=== PATIENT | male | born 1970 | race Caucasian/White ===

== ENCOUNTER 2019-12-25 15:12 | Emergency (ER) | payer BC, SELFPAY ==
[2019-12-25 15:26] VITALS: BP 139/86; PULSE 76; RESP 16; TEMP 36.1; O2SAT 100
--- NOTE | 2019-12-25 15:30 | DI.CT_ITS ---
EXAM: CT ABDOMEN PELVIS W CLINICAL HISTORY: Bilateral upper abd pain, h/o pancreatitis, N/V TECHNIQUE: FINDINGS: CT examination of the abdomen and pelvis was with bolus infusion of 99 cc of Omnipaque 350. Images obtained through bases are unremarkable. There appears to be mild hepatic steatosis without focal hepatic lesion. No biliary dilatation. Gal lbladder is CT. Spleen is unremarkable. There is Marla pancreatic edema, patient has a history of pancreatitis. On t ovidio's examination the findings are consistent acute pancreatitis without pancreatic necrosis or marla pancreatic fluid collection. Adrenals and kidneys are unremarkable, no urinary tract calcification or obstruction. Abdominal aorta is of normal diameter and major visceral vessels appear normal. No abdominal or pelvic adenopathy. No significant abdominal wall hernia, bilateral small fat contain ing inguinal hernias are noted. Appendix is normal. No evidence of diverticulitis or bowel obstruction. Urinary bladder is unremark able. IMPRESSION: Peripancreatic edema, appearance consistent with acute pancreatitis. No peripancreatic fluid collect ion or evidence of pancreatic parenchymal necrosis.
--- NOTE | 2019-12-25 15:33 | ED.GENADUL_ITS ---
Discharge Plan Disposition Patient Disposition: HOME Condition: Improving Discharge Details Chief Complaint: Abd Prob Clinical Impression: Pancreatitis Primary Care Provider: Usman Loyola ED Provider: Mark Jimenez Home Meds and New Rx's Prescriptions: New tramadol 50 mg tablet 50 mg PO Q8H PRN (Reason: pain) Qty: 7 RF: 0 Continued omeprazole 40 MG capsule,delayed release(DR/EC) 40 mg PO DAILY Qty: 30 RF: 1 loperamide 2 MG capsule 4 mg PO DAILY PRNRF: 0 Discontinued hydrocodone-acetaminophen 1 TAB tablet 1 tab PO Q4H PRN PRNQty: 5 RF: 0 Discharge Instructions Instructions: Pancreatitis (ED) Additional Instructions: Please observe a liquid diet with small, frequent sips of fluids so that you maintain hydration. May slowly advance a bland diet tomorrow morning if tolerated. Return if you develop a fever, recurrent pain, vomiting, or any other acute concerns. May use Tylenol as needed for pain with tramadol if needed for breakthrough/severe pain. Discharge Data Discharge Date/Time-TO BE ENTERED AT DEPARTURE: 12/25/19 19:00 Medical Decision Making <Gabi Hearn - Last Filed: 12/26/19 08:49> 41-year-old male presents to the ED with a chief complaint of bilateral upper abdominal pain which he is moderate to severe. Associated with nausea vomiting. He does have a history of pancreatitis which he states last episode was 1 month ago. He does endorse recent alcohol (Beer) intake last night and the day before. Admits to marijuana use no other drugs. He also endorses diarrhea but does have a history of IBS states that this is at his baseline. He denies hematemesis or hematochezia. No history of abdominal surgical history. Famotidine 20 mg IV piggyback, Zofran 4 mg IV push, normal saline 1 L wide open, and 50 mcg fentanyl IV ordered. Abdominal work-up ordered including CBC, CMP, lipase urinalysis CT abdomen pelvis with IV contrast. Care is to be handed off to Mark Jimenez MD pending work-up and CT result for possible pancreatitis. This text was generated using [employer]unny[employer] system, please disregard any oddities of phrase or misspellings., the time of this dictation patient was hemodynamically stable. <Mark Jimenez MD - Last Filed: 12/25/19 18:26> Received signout from Ms. Harmon. Please see her note regarding details of the initial presentation and plan. Patient with a history of pancreatitis, now with recurrent upper abdominal pain after drinking alcohol. His laboratories show a white count of 11, slight anion gap of 14. Lipase is somewhat elevated at 500. CT does confirm evidence of acute pancreatitis with peripancreatic stranding present, no pseudocyst seen. Patient was given additional fluids and analgesia, had improvement of his discomfort. I discussed with and offered the patient admission to the hospital. He stated that he felt like he was improving and wished to trial liquid diet, analgesia at home. He was consented for the use of a small number of tramadol. He understands he needs to stop drinking alcohol. I discussed with him indications to seek reevaluation. He was discharged in stable and improved condition. Lab Data Lab results reviewed: Yes I reviewed the patient's lab results. Labs: Laboratory Results - last 24 hr 12/25/19 12/25/19 15:40 15:40 WBC 11.51 H RBC 4.99 Hgb 16.4 Hct 46.7 MCV 93.6 MCH 32.9 MCHC 35.1 RDW 13.2 Plt Count 324 MPV 9.3 Immature Gran % 0.3 Neutrophils % 71.4 Lymphocytes % 21.5 Monocytes % 6.3 Eosinophils % 0.2 Basophils % 0.3 Absolute Neutrophils 8.22 H Absolute Lymphocytes 2.47 Absolute Monocytes 0.73 H Absolute Eosinophils 0.02 Absolute Basophils 0.03 Sodium 133 L Potassium 3.9 Chloride 98 Carbon Dioxide 20.8 L Anion Gap 14.2 H BUN 20 H Creatinine 1.20 Estimated GFR/1.73 m2 >= 60.00 Glucose 160 H Calcium 8.6 Magnesium 1.9 Total Bilirubin 0.7 Alkaline Phosphatase 98 Troponin I < 0.05 Total Protein 7.6 Albumin 3.5 Lipase 500 H ECG Data Attestation: I personally reviewed and interpreted this ECG (s) as follows: Interpretation: Normal sinus rhythm, rate of 87, QRS is narrow, no ST segment elevation present. HPI <Gabi Hearn - Last Filed: 12/26/19 08:49> General Mode of arrival: ambulatory . Date/Time Provider Initiated Documentation: 12/25/19 15:16 . Limitations to Documentation: no limitations . Information obtained by: patient . HPI Narrative: 41-year-old male presents to the ED with a chief complaint of bilateral upper abdominal pain which he is moderate to severe. Associated with nausea vomiting. He does have a history of pancreatitis which he states last episode was 1 month ago. He does endorse recent alcohol (Beer) intake last night and the day before. Admits to marijuana use no other drugs. He also endorses diarrhea but does have a history of IBS states that this is at his baseline. He denies hematemesis or hematochezia. No history of abdominal surgical history. Related Data Home Medications Medication Instructions Recorded Confirmed omeprazole 40 mg PO DAILY #30 tab-cap 01/22/18 12/25/19 loperamide 4 mg PO DAILY PRN 03/06/18 12/25/19 tramadol 50 mg PO Q8H PRN #7 tab 12/25/19 Previous Rx's Medication Instructions Recorded omeprazole 40 mg PO DAILY #30 tab-cap 01/22/18 tramadol 50 mg PO Q8H PRN #7 tab 12/25/19 Allergies Allergy/AdvReac Type Severity Reaction Status Date / Time erythromycin base Allergy Unverified 12/25/19 23:59 General Stated Complaint: Abd Prob KATELYNN: 3 Review of Systems <Gabi Hearn - Last Filed: 12/26/19 08:49> Narrative: Constitutional: Negative for weight loss, alert and oriented, well gr oomed, normal body habitus, appears uncomfortable. HEENT: Denies trauma, headaches, blurry vision, nasal discharge, sore throat, trouble swallowing. Chest: Denies chest pain, palpitations, irregular rhythm, hypertension. Respiratory: Denies Shortness of breath, cough, hemoptysis. GI: Denies constipation. Positive abdominal pain nausea vomiting diarrhea history of IBS. : Denies dysuria, hematuria, flank pain, rectal bleeding. Neuro: Denies dizziness, blurry vision, weakness, syncope, headache or facial numbness. Hematologic: Denies easy bruising, intolerance to heat or cold, hair loss. All systems reviewed & are unremarkable except as noted in HPI and below PFSH <Gabi Hearn - Last Filed: 12/26/19 08:49> Surgical History Arthroplasty of knee Social History Smoking/Tobacco Use Status: Current every day Tobacco Type: cigarettes Drug use: Occasionally Substance use type: marijuana Do you feel safe at home: Yes Do you feel safe in your relationship?: Yes Exam <Gabi [facility] Filed: 12/26/19 08:49> Narrative Exam Narrative: Constitutional: Alert and oriented x3. Appears stated age. Normal body habitus. Appears uncomfortable Head: Normocephalic, no trauma. Eyes: Pupils PERRLA, Red reflex noted, EOM's intact. Eyelids symmetrical without lesions, discharge, or swelling. ENT: Bilateral TM's WNL, External ear normal to inspection, no mastoid TTP, swelling, or erythema, Nasal turbinates WNL, no nasal discharge. Normal dentition, Posterior pharynx WNL, no exudate. Chest: RRR, Normal S1, S2, distal pulses intact. Resp: Lungs clear to auscultation bilaterally, no wheezes, rales, or rhonchi. Abdomen: Abdominal wall normal to inspection, soft extremely tender to palpation to the right upper quadrant and left upper quadrant. Nontender to palpation lower quadrants. Hypoactive bowel sounds. Musculoskeletal: Normal gait, 5/5 strength to all four extremities. Skin: No suspicious rashes or lesions. Capillary refill less than 2 sec. Neurologic: Cranial nerves II-XII intact. Alert and oriented x 3. DTR's intact. Hematologic/Lymphatic: No ecchymosis, no lymphadenopathy. Course <Gabi Hearn - [facility] Filed: 12/26/19 08:49> Vital Signs Vital signs: Vital Signs Temperature 36.1 C L 12/25/19 15:26 Pulse 76 12/25/19 15:26 Respiratory Rate 16 12/25/19 15:26 Blood Pressure 139/86 12/25/19 15:26 Pulse Oximetry 100 12/25/19 15:26 Temperature 36.1 C L 12/25/19 15:26 Temperature Source Skin 12/25/19 15:26 Pulse 76 12/25/19 15:26 Respiratory Rate 16 12/25/19 15:26 Respiratory Effort 12/25/19 15:26 Blood Pressure 139/86 12/25/19 15:26 Blood Pressure Position Supine 12/25/19 15:26 Pulse Oximetry 100 12/25/19 15:26 Oxygen Delivery Method Room Air 12/25/19 15:26 Oxygen Flow Rate 0 12/25/19 15:26 Pain Level 10 12/25/19 15:26 Sign Out <Gabi Hearn - Last Filed: 12/26/19 08:49> Sign Out Data: Sign Out Comment: Pending abdominal work-up and CT abdomen pelvis possible pancreatitis Last updated by Gabi Hearn at 12/25/19 15:48
[2019-12-25] MEDS: Normal Saline 1,000 ML 1000 ML IV (15:40)
[2019-12-25] MEDS: HYDROmorphone 2 MG/ML VIAL 1 MG IVP ×2 (15:45→17:00)
[2019-12-25 15:49] VITALS: BP 160/95; PULSE 74; O2SAT 100
[2019-12-25 15:50] VITALS: O2SAT 100
[2019-12-25] MEDS: fentaNYL 100 MCG/2 ML VIAL 50 MCG IVP (15:55)
[2019-12-25 15:57] LABS: Abs Immature Grans 0.03 k/cumm (0.0-0.09); Absolute Eosinophil Count 0.02 k/cumm (0.0-0.7); Absolute Monocyte Count 0.73 k/cumm (0.11-0.7); Basophils % 0.3; Eosinophils % 0.2; HCT 46.7 % (40.0-50.0); HGB 16.4 g/dL (13.5-17.5); Immature Grans % 0.3 %; Lymphocytes % 21.5; Mean Corp. HGB Concentration 35.1 g/dL (32.0-36.0); Mean Corpuscular Hemoglobin 32.9 pg (27.0-33.0); Mean Corpuscular Volume 93.6 fL (80-95); Mean Platelet Volume 9.3 fL (8.0-11.0); Monocytes % 6.3; Neutrophils % 71.4; Platelet Count 324 x1000/uL (130-400); RBC 4.99 m/cumm (4.50-6.00); RBC Distribution Width 13.2 % (11.8-14.1); White Blood Cell Count 11.51 k/cumm (4.4-10.8)
[2019-12-25] MEDS: FAMOTIDINE 20 MG/50 ML BAG 100 MG IVPB (16:00)
[2019-12-25 16:01] LABS: Absolute Basophil Count 0.03 k/cumm (0.0-0.2); Absolute Lymphocyte Count 2.47 k/cumm (1.2-3.4); Absolute Neutrophil Count 8.22 k/cumm (1.2-6.7)
[2019-12-25] MEDS: Omnipaque 350 MG/ML 100 ML BTL IV (16:04)
[2019-12-25 16:09] LABS: Albumin 3.5 g/dL (3.4-5.0); Alkaline Phosphatase 98 U/L (46-116); Anion Gap 14.2 mmol/L (3-11); BUN 20 mg/dL (7-18); Bilirubin, Total 0.7 mg/dL (0.2-1.0); CO2 20.8 mmol/L (21.0-32.0); Calcium 8.6 mg/dL (8.5-10.1); Chloride 98 mmol/L (98-107); Glucose 160 mg/dL (74-106); Lipase 500 U/L (73-393); Magnesium 1.9 mg/dL (1.8-2.4); Potassium 3.9 mmol/L (3.5-5.1); Sodium 133 mmol/L (136-145); Total Protein 7.6 g/dL (6.4-8.2)
[2019-12-25 16:11] LABS: Troponin I < 0.05 ng/mL (<0.06)
[2019-12-25 16:23] LABS: ETHANOL BLOOD 74.1 mg/dL (<3)
--- NOTE | 2019-12-25 16:29 | DI.VRAD_ITS ---
PROCEDURE INFORMATION: Exam: CT Abdomen And Pelvis With Contrast Exam date and time: 12/25/2019 4:02 PM Age: 49 years old Clinical indication: Other: Bilateral upper abd pain, h/o pancreatitis, n/v TECHNIQUE: Imaging protocol: Computed tomography of the abdomen and pelvis with intravenous contrast. Radiation optimization: All CT scans at this facility use at least one of these dose optimization techniques: automated exposure control; mA and/or kV adjustment per patient size (includes targeted exams where dose is matched to clinical indication); or iterative reconstruction. Contrast material: OMNIPAQUE 350; Contrast volume: 100 ml; Contrast route: IV; COMPARISON: CT Abdomen^ROUTINE ABDOMEN PELVIS WITH CONTRAST (Adult) 03/06/2018 1:43 PM FINDINGS: Liver: Normal. No mass. Gallbladder and bile ducts: Normal. No calcified stones. No ductal dilation. Pancreas: Peripancreatic stranding suggesting acute pancreatitis. No pseudocyst. Spleen: Normal. No splenomegaly. Adrenals: Normal. No mass. Kidneys and ureters: Normal. No hydronephrosis. Stomach and bowel: Mild distal colonic diverticulosis without diverticulitis. Appendix: No evidence of appendicitis. Intraperitoneal space: Unremarkable. No free air. No significant fluid collection. Vasculature: Unremarkable. No abdominal aortic aneurysm. Lymph nodes: Unremarkable. No enlarged lymph nodes. Bladder: Unremarkable as visualized. Reproductive: Unremarkable as visualized. Bones/joints: Unremarkable. No acute fracture. Soft tissues: Bilateral inguinal hernias, right greater than left, uncomplicated. IMPRESSION: Peripancreatic stranding suggesting acute pancreatitis. No pseudocyst. Dictated and Authenticated by: Max Barron MD. Ordering:ISHAN Ashley MD
[2019-12-25 16:58] LABS: ALT 46 U/L (16-63)
[2019-12-25] MEDS: Normal Saline 1,000 ML 125 ML IV (17:00)
[2019-12-25] MEDS: Ondansetron 4 MG/2 ML VIAL IVP (17:17)
[2019-12-25 17:24] LABS: AST 67 U/L (15-37)
[2019-12-25] MEDS: traMADol 50 MG TAB PO (17:55)
[2019-12-25 18:04] LABS: Bilirubin Negative (Negative); Blood Negative (Negative); Clarity Clear (Clear); Glucose Negative (Negative); Ketones Negative (Negative); Leukocyte Esterase Negative (Negative); Nitrite Negative (Negative); Urobilinogen 0.2 EU/dL (Up TO 0.2)
[2019-12-25] MEDS: HYDROmorphone 2 MG/ML VIAL 0.5 MG IVP (18:41)
[2019-12-25 18:58] VITALS: BP 153/78; PULSE 84; RESP 16; TEMP 36.3; O2SAT 97
== END 2019-12-25 19:00 | disposition home or self-care (01) ==
PROVIDERS: Registered Nurse Emergency; Emergency Provider Emergency Medicine; PCP Family Medicine
DX: K85.20 Alcohol induced acute pancreatitis without necrosis or infection (principal); R11.2 Nausea with vomiting, unspecified; F10.10 Alcohol abuse, uncomplicated; Y90.3 Blood alcohol level of 60-79 mg/100 ml
CPT/HCPCS: 36415; 80053; 83690; 93005; 96361; 96365; 96375; 96376; 99285; 74177; 80320; 81003; 83735; 84484; 85025; 93010; J2405; J3010; J3490

== ENCOUNTER 2019-12-25 23:51 | Inpatient (IN) | payer SELFPAY ==
[2019-12-25 23:56] VITALS: BP 163/103; PULSE 88; RESP 24; TEMP 36.9; O2SAT 100
--- NOTE | 2019-12-25 23:57 | ED.GENADUL_ITS ---
Discharge Plan Disposition Patient Disposition: [facility] INPATIENT Condition: Fair Discharge Details Chief Complaint: Abd Prob Clinical Impression: Pancreatitis Primary Care Provider: Usman Loyola ED Provider: Aiden Isabel Home Meds and New Rx's Prescriptions: No Action omeprazole 40 MG capsule,delayed release(DR/EC) 40 mg PO DAILY Qty: 30 RF: 1 loperamide 2 MG capsule 4 mg PO DAILY PRNRF: 0 tramadol 50 mg tablet 50 mg PO Q8H PRN (Reason: pain) Qty: 7 RF: 0 Medical Decision Making Patient returns with uncontrolled pain after being diagnosed with acute pancreatitis earlier today. CT was positive and lipase was 500. Other labs looked good. Minimal elevation of white count. Slight anion gap. Normal kidney function. Essentially normal liver function with slight elevated AST only. Negative troponin. Patient unable to tolerate pain at home. Agrees to admission at this time. IV established and maintenance fluids ordered. Morphine and Zofran ordered as needed. We will not repeat labs as was just done this afternoon. Discussed with hospitalist for admission. Medical Records Medical records reviewed: Yes I reviewed the patient's medical records. Lab Data Lab results reviewed: Yes I reviewed the patient's lab results. HPI General Mode of arrival: EMS . Date/Time Provider Initiated Documentation: 12/25/19 23:54 . Limitations to Documentation: no limitations . Information obtained by: patient, RN notes reviewed and old records reviewed . HPI Narrative: Patient returns after about 5 hours of being home with abdominal pain. He has history of pancreatitis and was diagnosed with pancreatitis earlier today both by lab and CAT scan. He was feeling better and wanted to try to go home. He has done this previously and is managed with pain meds and clear liquids. 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 However, pain has been worsening since discharge. He has had no vomiting since discharge. He denies chest pain or shortness of breath. No fever that he is aware of. Returns for pain control, IV fluids and admission. Related Data Home Medications Medication Instructions Recorded Confirmed omeprazole 40 mg PO DAILY #30 tab-cap 01/22/18 12/25/19 loperamide 4 mg PO DAILY PRN 03/06/18 12/25/19 tramadol 50 mg PO Q8H PRN #7 tab 12/25/19 Previous Rx's Medication Instructions Recorded omeprazole 40 mg PO DAILY #30 tab-cap 01/22/18 tramadol 50 mg PO Q8H PRN #7 tab 12/25/19 Allergies Allergy/AdvReac Type Severity Reaction Status Date / Time erythromycin base Allergy Unverified 12/25/19 23:59 General KATELYNN: 3 Review of Systems Narrative: 05/06 Review of Systems completed and is negative except as stated above in HPI (Systems reviewed: Const, Eyes, ENT, Resp, CV, GI, , MSK, Skin, Neuro) PFSH Medical History Alcohol abuse (Chronic) Irritable bowel syndrome (Chronic) Pancreatitis (Acute) Surgical History Arthroplasty of knee Social History Smoking/Tobacco Use Status: Current every day Tobacco Type: cigarettes Drug use: Occasionally Substance use type: marijuana Do you feel safe at home: Yes Do you feel safe in your relationship?: Yes Exam Narrative Exam Narrative: Vitals: Afebrile. Blood pressure little high. Other vitals and room air pulse ox normal. Const: WDWN male very uncomfortable. HEENT: NC/AT. Normal facial exam. Eyes: Normal conjunctiva and sclera. Neck: Supple. Trachea midline. Lungs: Normal respiratory effort. Cor: Good radial pulses. GI: Soft and ND. Some tenderness in the epigastric region. No guarding. Neuro: A+O x 3. Normal speech, mentation. Cranial nerves II - XII grossly intact. No gross motor or sensory deficit. Ext: No C/C/E. Skin: Warm and dry without rash.
[2019-12-26] VITALS (27 sets, daily range): BP systolic 121–177; BP diastolic 86–106; PULSE 83–117; RESP 5–24; TEMP 36.3–36.7; O2SAT 94–100
[2019-12-26] MEDS: Ondansetron 4 MG/2 ML VIAL IVP (00:27)
--- NOTE | 2019-12-26 01:29 | W.PM.HP.N ---
Date of service: 12/26/19 Time of Service: 01:29 Assessment and Plan Assessment and plan (1) Pancreatitis: Status: Chronic Assessment and plan: Pancreatitis. Will continue NPO, IVF and prn analgesics. As to alcohol history does not sound like he as had any w/d issues in past but in abundance of caution will place on CIWA overnight until status completely clear. History of Present Illness History of Present Illness Chief Complaint: abd pain Narrative: 49 male with h/o recurrent pancreatitis due to alcohol use (previously more, now more like 6 pack on weekend). Was drinking this past weekend came to ER earlier yesterday, pancreatitis noted with Lipase [address] findings of same. Attempted outpatient Tx but returns with ongoing pain. Here in ER has gotten Toradol and 4 mg MS with moderate relief. Admitted for further management. Review of Systems All systems reviewed & are unremarkable except as noted in HPI and below PFSH Medical History Alcohol abuse (Chronic) Irritable bowel syndrome (Chronic) Pancreatitis (Acute) Surgical History Arthroplasty of knee Social History Smoking/Tobacco Use Status: Current every day Tobacco Type: cigarettes Drug use: Occasionally Substance use type: marijuana Do you feel safe at home: Yes Do you feel safe in your relationship?: Yes Meds Home Medications and Allergies Home Medications Medication Instructions Recorded Confirmed Type omeprazole 40 mg PO DAILY #30 tab-cap 01/22/18 12/25/19 Rx loperamide 4 mg PO DAILY PRN 03/06/18 12/25/19 History tramadol 50 mg PO Q8H PRN #7 tab 12/25/19 Rx Allergies Allergy/AdvReac Type Severity Reaction Status Date / Time erythromycin base Allergy Unverified 12/25/19 23:59 Exam Narrative Exam Narrative: 161/102, 84, 24, 36.9. HEENT anicteric; neck supple; lungs clear; heart RRR w/o MRG; abdomen soft, mild-mod epigastric tenderness w/o rebound; extremities w/o edema; neuro ox3, non-focal Results Last Vital Signs Temp 36.9 C 12/25/19 23:56 Pulse 84 12/26/19 00:46 Resp 24 12/26/19 00:46 BP 161/102 H 12/26/19 00:46 Pulse Ox 99 12/26/19 00:46 COVID-19 Screening In the past 14 days, have you traveled outside of [place] or [place]?: NO Had IN PERSON contact w/suspected or confirmed C-19 person: Yes
[2019-12-26] MEDS: Ketorolac 30 MG/ML VIAL IVP (01:57)
[2019-12-26 07:11] LABS: Anion Gap 12.2 mmol/L (3-11); BUN 15 mg/dL (7-18); CO2 20.8 mmol/L (21.0-32.0); CREATININE 1.18 mg/dL (0.70-1.30); Calcium 7.3 mg/dL (8.5-10.1); Chloride 101 mmol/L (98-107); Glucose 191 mg/dL (74-106); Potassium 3.8 mmol/L (3.5-5.1); Sodium 134 mmol/L (136-145)
[2019-12-26 07:26] LABS: Lipase 3090 U/L (73-393)
--- NOTE | 2019-12-26 08:24 | PHA.REVIEW ---
Pharmacy Admission Review - Admission Clinical Review (Last Reviewed 12/26/19 @ 01:37 by Landon Sapp MD) Pancreatitis (Acute) erythromycin base Allergy (Unverified 12/25/19 23:59) Height 5 ft 7 in Weight 81.647 kg - Comments Comments/Follow Ups: Lipase 3090 (up from 500 previous day when seen in the ED) - Renal Dosing Renal Dosing: BUN 15 mg/dL (7-18) 12/26/19 05:58 Creatinine 1.18 mg/dL (0.70-1.30) 12/26/19 05:58 Medications needing adjustments: Reviewed - Anticoagulation Anticoagulation: Creatinine 1.18 mg/dL (0.70-1.30) 12/26/19 05:58 DVT Prohphylaxis: N/A Therapeutic Anticoagulation: N/A - Opiate Usage Evaluate Pain Scale/Pains Meds: Reviewed Scheduled Bowel Reg ordered if on Opiates?: No (lomotil ordered) - Relevant Labs Sodium 134 mmol/L (136-145) L 12/26/19 05:58 Potassium 3.8 mmol/L (3.5-5.1) 12/26/19 05:58 Chloride 101 mmol/L (98-107) 12/26/19 05:58 Electrolytes, C-Reactive P, ESR: Reviewed - DM Control DM Control: Glucose 191 mg/dL (74-106) H 12/26/19 05:58 Insulin Dosing: Reviewed - BP Control BP Control: Blood Pressure 173/99 Blood Pressure 173/99 Blood Pressure 177/104 Blood Pressure 165/106 Blood Pressure 161/102 Blood Pressure 163/103 If elevated: Reviewed (not on any bp meds at home) - IV to PO Switch IV Medications: Reviewed (Currently NPO) - Comments Comments/Follow Ups: CIWA protocol out of caution however no hx of EtOH withdrawal in the past
[2019-12-26] MEDS: HYDROmorphone 2 MG/ML VIAL 1 MG IVP ×6 (08:31→22:13)
[2019-12-26] MEDS: Pantoprazole 40 MG VIAL IVP (08:32)
[2019-12-26] MEDS: Normal Saline Flush 10 ML SYR IVP ×4 (08:33→22:13)
--- NOTE | 2019-12-26 11:37 | W.PM.PROGNOT ---
Date of Service Date of service: 12/26/19 Time of Service: 07:30 Assessment and Plan Assessment and plan (1) Pancreatitis: Status: Acute Assessment and plan: Pain control and adequate with morphine. Transition to Dilaudid. Continue IV hydration, n.p.o. status and monitor clinical response. Monitor labs for metabolic abnormalities that might be a consequence of pancreatitis. Monitor for signs of infection. No antibiotics indicated at this point. (2) Alcohol abuse: Status: Chronic Assessment and plan: Lower but still frequent alcohol use. Monitor for withdrawal symptoms. (3) Elevated blood pressure reading: Status: Acute Assessment and plan: Historically not a problem and probably a manifestation of pain. Monitor blood pressure, in the setting of pancreatitis, pain, I am tolerating current blood pressures but may need antihypertensive medication if they remain in this range. Work on better pain control. Subjective Subjective Interval history since last seen: Continues to have diffuse abdominal pain. Denies nausea. Has been passing gas or belching. States that this pain is as bad as his first episode of pancreatitis several years ago. Continues to drink alcohol on a daily basis, last use yesterday. He did have a measurable alcohol level on admission. He has not been febrile. No dysrhythmias on the monitor. Blood pressures have been elevated. He has not had significant withdrawal symptoms. Lipase has gone up to over 3000 overnight. Uncorrected calcium has dropped slightly as has his bicarb level. Exam Narrative Exam Narrative: Awake alert uncomfortable with abdominal pain. Afebrile with a temperature of 36.6. Blood pressures have had diastolics over 100, pulse rate in the 100 teens range. Sinus rhythm on monitor. No scleral icterus. No JVD. Slightly distant breath sounds, no wheeze crackles or rub. Regular mild tachycardia with no S3-S4 or murmur. Abdomen is quiet, a little bit distended. Tender mainly in the right upper quadrant to epigastric area with no guarding or rebound. Somewhat tympanitic. Extremities warm with good pulses distally. No pitting edema. No petechiae. Symmetric movement of all extremities. No tremor. Sits up unassisted. Objective Objective Clinical Data: Abnormal lab results 12/26/19 Range/Units 05:58 Sodium 134 L (136-145) mmol/L Carbon Dioxide 20.8 L (21.0-32.0) mmol/L Anion Gap 12.2 H (3-11) mmol/L Glucose 191 H (74-106) mg/dL Calcium 7.3 L (8.5-10.1) mg/dL Lipase 3090 H (73-393) U/L Vital Signs Temperature 36.6 C 12/26/19 08:58 Temperature Source Temporal Artery Scan 12/26/19 08:58 Pulse 111 H 12/26/19 08:17 Pulse Rhythm Regular 12/26/19 08:00 Pulse 112 H 12/26/19 08:17 Respiratory Rate 20 12/26/19 08:17 Respiratory Effort Non-Labored 12/26/19 08:00 Respiratory Depth Shallow 12/26/19 08:00 Respiratory Pattern Normal 12/26/19 08:00 Blood Pressure 146/101 H 12/26/19 08:17 Blood Pressure Mean 106 12/26/19 08:17 Pulse Oximetry 98 12/26/19 08:58 Oxygen Delivery Method Room Air 12/26/19 08:58 Oxygen Flow Rate 0 12/26/19 08:58 Pain Level 8 12/26/19 09:31 Intake & Output 12/25/19 12/25/19 12/26/19 11:59 23:59 11:59 Intake Total 993.75 / 993.75 Output Total 100 / 100 Balance 893.75 / 893.75 Weight 81.647 kg 81.647 kg Intake: IV 993.75 / 993.75 Output: Urine 100 / 100 Other: Urine Color Dark Elvia Urine Appearance Clear Laboratory Results Sodium 134 mmol/L (136-145) L 12/26/19 05:58 Potassium 3.8 mmol/L (3.5-5.1) 12/26/19 05:58 Chloride 101 mmol/L (98-107) 12/26/19 05:58 Carbon Dioxide 20.8 mmol/L (21.0-32.0) L 12/26/19 05:58 Anion Gap 12.2 mmol/L (3-11) H 12/26/19 05:58 BUN 15 mg/dL (7-18) 12/26/19 05:58 Creatinine 1.18 mg/dL (0.70-1.30) 12/26/19 05:58 Estimated GFR/1.73 m2 >= 60.00 (mL/min/1.73m2) 06/04/20 05:58 Glucose 191 mg/dL (74-106) H 12/26/19 05:58 Calcium 7.3 mg/dL (8.5-10.1) L 12/26/19 05:58 Lipase 3090 U/L (73-393) H 12/26/19 05:58
--- NOTE | 2019-12-26 12:05 | PDOC.CMIN ---
- If Service Date Differs Date of service: 12/26/19 Time of Service: 12:05 Care Management Initial Assess REASON FOR HOSPITALIZATION:: Acute Pancreatitis PAST MEDICAL HISTORY/PAST SURGICAL HISTORY:: ETOH abuse, Parvin-Manjarrez tear, irritable bowel syndrome. Surgical hx: knee arthroscopy. PREVIOUS FUNCTIONAL STATUS/SOCIAL/FAMILY SUPPORTS:: Diogo lives in his own home in [place], [place] with his signifigant other. 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 He states he has a supportive family. CURRENT FUNCTIONAL STATUS:: Diogo is lying in bed he is having pain and not feeling well. He is engaged in assessment he states that he has not been able to obtain insurance and has not tried for Medicaid since his hours have been cut. He is willing to allow [facility] to assist with insurance and will also complete a patient assistance application. ADVANCE DIRECTIVES:: Not interest in completing at this time Has patient been provided with information about the portal?: Yes Did the patient sign up for the portal?: No CODE STATUS:: Full Code INSURANCE COVERAGE / FINANCIAL ISSUES:: No insurance CM is addressing with the paitent with community resources CURRENT HOME/COMMUNITY SERVICES/EQUIPMENT:: None PRIMARY CARE PHYSICIAN:: PATIENT/FAMILY EDUCATION NEEDS:: Discharge education, limitations and follow up plan of care including ask me three and self management ANTICIPATED BARRIERS TO DISCHARGE:: Barriers include insurance and access to care TRANSPORTATION:: Via private car with family at time of discharge PLAN:: Diogo is being treated for pancreatitis. He will be discharged when medically ready per provider. CM will assist with insurance resources and referral to community resources. CM to continue to assess for discharge needs.
[2019-12-26 15:07] LABS: COVID-19 RT-PCR UVMMC Result Negative (Negative)
[2019-12-26] MEDS: Normal Saline - Diluent 50 ML VIAL IV (15:47)
[2019-12-26] MEDS: Omnipaque 350 MG/ML 100 ML BTL IJ (15:48)
--- NOTE | 2019-12-26 16:05 | DI.CT_ITS ---
EXAM: CT ABDOMEN PELVIS W CLINICAL HISTORY: Pancreatitis, increased pain, peritoneal signs COMPARISON: CT CT ABDOMEN PELVIS W from 12/25/2019 FINDINGS: CT examination of the abdomen and pelvis was performed with a bolus infusion of 100 cc of Omnipaque 3 50. Examination is compared with examination of December 24 which showed peripancreatic edema and minim al fluid collections. On today's examination, there is marked increase in peripancreatic fluid colle ction and there is now a large quantity of fluid in the paracolic gutters bilaterally and in the pelv is. Small bilateral pleural effusions now noted. No significant pulmonary consolidation or atelecta sis. Since yesterday's examination, there has been interval development of multiple areas of decreased att enuation indicating lack of contrast enhancement in large portions of the pancreatic body and tail an d portions of the pancreatic head as well. Findings are suggestive of a necrotizing pancreatitis. Hepatic steatosis noted. Contrast excretion in the gallbladder. No biliary dilatation. Spleen smal l but unremarkable. Adrenals and kidneys unremarkable. Vascular structures unremarkable. Normal a ppendix. Urinary bladder wall thickening, nonspecific. IMPRESSION: Marked interval worsening of pancreatitis since yesterday's examination, large areas of apparent panc reatic necrosis are now present. Marked interval increase in intraperitoneal fluid collections.
--- NOTE | 2019-12-26 16:30 | DI.VRAD_ITS ---
Addendum created by Jacinto Wiley MD on 12/26/2019 4:38:41 PM EDT It should be noted that the pancreatitis has severely worsened since the prior study. THIS REPORT CONTAINS FINDINGS THAT MAY BE CRITICAL TO PATIENT CARE. The findings were verbally communicated via telephone conference with DANIEL Cui at 4:38 PM EDT on 12/26/2019. The findings were acknowledged and understood. Initial report created on 12/26/2019 4:30:33 PM EDT PROCEDURE INFORMATION: Exam: CT Abdomen And Pelvis With Contrast Exam date and time: 12/26/2019 3:59 PM Age: 49 years old Clinical indication: Abdominal pain; Generalized; Patient HX: Pancreatitis, increased pain. Peritoneal signs. TECHNIQUE: Imaging protocol: Computed tomography of the abdomen and pelvis with intravenous contrast. Radiation optimization: All CT scans at this facility use at least one of these dose optimization techniques: automated exposure control; mA and/or kV adjustment per patient size (includes targeted exams where dose is matched to clinical indication); or iterative reconstruction. Contrast material: OMNI-PAQUE 350; Contrast volume: 100 ml; Contrast route: IV; COMPARISON: CT ABDOMEN PELVIS W 12/25/2019 4:00 PM FINDINGS: Lungs: There is slight atelectatic changes at the lung bases. Pleural space: There is a small left pleural effusion. Heart: The visualized portions of the heart and pericardium are unremarkable Liver: There is mild fatty infiltration of the liver. Gallbladder and bile ducts: There is vicarious excretion of contrast within the gallbladder. Pancreas: There is severe pancreatitis. There is marked inflammation and fluid surrounding the pancreas. There is fluid within the pericolic gutters bilaterally. There is hypoperfusion of the body and tail of the pancreas. Necrotizing pancreatitis is suspected. There are areas of hypoperfusion within the head of the pancreas as well. Again necrotizing pancreatitis is not excluded. This could be due to edema as well. Spleen: The spleen is small. The spleen is heterogeneous in attenuation. Multiple small splenic infarcts are suspected. Adrenals: The adrenal glands are unremarkable. Kidneys and ureters: The kidneys are within normal limits. Stomach and bowel: Unremarkable. No obstruction. No mucosal thickening. Appendix: The appendix is visualized and is within normal limits. Intraperitoneal space: Unremarkable. No free air. No significant fluid collection. Vasculature: There are arteriosclerotic changes of the aorta. Lymph nodes: No enlarged lymph nodes. Bladder: The urinary bladder is within normal limits. Reproductive: The prostate and seminal vesicles are within normal limits. Bones/joints: There are degenerative changes of the thoracic and lumbar spines. There are degenerative changes of both hips. Soft tissues: There are bilateral fat containing incipient inguinal hernias. IMPRESSION: 1. Severe pancreatitis as described above. Necrotizing pancreatitis is suspected. 2. Mild fatty infiltration of the liver. 3. Small left pleural effusion. 4. Osseous findings as above. 5. Suspect multiple small splenic infarcts. The spleen is small. Dictated and Authenticated by: Jacinto Wiley MD. Ordering:KODI Robles MD
[2019-12-26 17:21] LABS: pCO2 (Venous) 40 mm/Hg (34-47); pH (Venous) 7.33 (7.35-7.45); pO2 (Venous) 37 mm/Hg (28-44)
[2019-12-26 17:36] LABS: Anion Gap 8.8 mmol/L (3-11); BUN 21 mg/dL (7-18); CO2 21.2 mmol/L (21.0-32.0); CREATININE 1.94 mg/dL (0.70-1.30); Calcium 6.9 mg/dL (8.5-10.1); Chloride 101 mmol/L (98-107); Estimated GFR 37.12 (mL/min/1.73m2); Glucose 241 mg/dL (74-106); Potassium 5.4 mmol/L (3.5-5.1); Sodium 131 mmol/L (136-145)
[2019-12-26 17:41] LABS: HCT 51.6 % (40.0-50.0); HGB 17.8 g/dL (13.5-17.5); Mean Corp. HGB Concentration 34.5 g/dL (32.0-36.0); Mean Corpuscular Volume 95.7 fL (80-95); Mean Platelet Volume 9.8 fL (8.0-11.0); Platelet Count 276 x1000/uL (130-400); RBC 5.39 m/cumm (4.50-6.00); RBC Distribution Width 13.9 % (11.8-14.1); White Blood Cell Count 18.08 k/cumm (4.4-10.8)
[2019-12-26 17:51] LABS: Albumin 2.6 g/dL (3.4-5.0)
[2019-12-26 18:00] LABS: Absolute Lymphocyte Count 0.72 k/cumm (1.2-3.4); Absolute Monocyte Count 1.45 k/cumm (0.11-0.7); Absolute Neutrophil Count 15.91 k/cumm (1.2-6.7); Diff Comment Manual Differential; RBC Morphology Normal
[2019-12-27] VITALS (12 sets, daily range): BP systolic 127–171; BP diastolic 85–92; PULSE 66–125; RESP 18–20; TEMP 36.7–37.7; O2SAT 92–97
--- NOTE | 2019-12-27 | DI.RAD_ITS ---
EXAM: XR PORTABLE CHEST AP CLINICAL HISTORY: increasing SOB, severe pancreatitis TECHNIQUE: COMPARISON: No exams were available for comparison FINDINGS: Portable AP view was obtained. Cardiac size is within normal limits. Minimal streaky basilar radiod ensities are consistent with mild atelectasis. No other significant findings. IMPRESSION:
[2019-12-27] MEDS: Normal Saline Flush 10 ML SYR IVP ×7 (00:27→22:21)
[2019-12-27] MEDS: HYDROmorphone 2 MG/ML VIAL 1 MG IVP ×4 (00:27→06:56)
[2019-12-27 06:27] LABS: HCT 48.3 % (40.0-50.0); HGB 16.1 g/dL (13.5-17.5); Mean Corp. HGB Concentration 33.3 g/dL (32.0-36.0); Mean Corpuscular Hemoglobin 32.6 pg (27.0-33.0); Mean Corpuscular Volume 97.8 fL (80-95); Platelet Count 203 x1000/uL (130-400); RBC 4.94 m/cumm (4.50-6.00); RBC Distribution Width 14.2 % (11.8-14.1); White Blood Cell Count 16.57 k/cumm (4.4-10.8)
[2019-12-27 06:41] LABS: ALT 25 U/L (16-63); AST 45 U/L (15-37); Albumin 2.2 g/dL (3.4-5.0); Alkaline Phosphatase 75 U/L (46-116); Anion Gap 8.9 mmol/L (3-11); BUN 30 mg/dL (7-18); Bilirubin, Total 0.9 mg/dL (0.2-1.0); CO2 21.1 mmol/L (21.0-32.0); CREATININE 2.32 mg/dL (0.70-1.30); Calcium 6.7 mg/dL (8.5-10.1); Chloride 104 mmol/L (98-107); Glucose 298 mg/dL (74-106); Potassium 5.2 mmol/L (3.5-5.1); Sodium 134 mmol/L (136-145); Total Protein 6.4 g/dL (6.4-8.2)
[2019-12-27] MEDS: Lactated Ringers 1,000 ML 150 ML IV ×2 (06:55→09:27)
[2019-12-27] MEDS: Insulin Aspart 300 UNITS/3 ML PEN SC ×4 (08:20→22:01)
[2019-12-27] MEDS: Pantoprazole 40 MG VIAL IVP (08:20)
[2019-12-27] MEDS: Lactated Ringers 1,000 ML 1000 ML IV (08:22)
[2019-12-27] MEDS: HYDROmorphone 2 MG/ML VIAL IVP ×6 (09:27→22:20)
--- NOTE | 2019-12-27 09:55 | PDOC.CMPRO ---
- If Service Date Differs Date of service: 12/27/19 Time of Service: 09:55 Care Management Progress Note S/O:Diogo was reclining in bed when CM met with him. He stated that he is still having a lot of pain. He denied nausea or vomiting. Diogo has not exhibited any symptoms of alcohol withdrawal and has only been scoring between 0 and 4 on CIWA scale. CM will follow. A: Diogo is a 49 year old man admitted on 12/26/19 with pancreatitis P: Diogo is being treated for pancreatitis. He will be discharged home when medically ready per provider. CM made a referral to [facility] to assist with insurance resources. CM will continue to support patient and to assess for discharge needs.
--- NOTE | 2019-12-27 11:53 | PGE_ITS ---
Date of Service Date of service: 12/27/19 Time of Service: 11:53 Assessment and Plan Assessment and plan (1) Pancreatitis: Status: Acute Assessment and plan: Necrotic pancreatitis on CT scan yesterday with complications of dropping calcium, worsening renal function by lab and urine output but hemodynamically holding his own with current fluid resuscitation. He remains afebrile. He has not had progressive acidemia. His white blood cell count has not been progressively increasing. He has not become more hemoconcentrated as indicated by hemoglobin and hematocrit. He may be developing insulin insufficiency. Pain control a little difficult to interpret but I am going to push his hydromorphone dose higher. Continue supportive measures with IV hydration, IV albumin, parenteral pain medication. He remains n.p.o.. There will need to be discussion regarding nutritional support in the next 24 to 48 hours. Continue to monitor for complications. (2) Alcohol abuse: Status: Chronic Assessment and plan: No significant withdrawal symptoms. He realizes he has to completely abstain from alcohol use in the future. (3) Elevated blood pressure reading: Status: Acute Assessment and plan: Historically not a problem and probably a manifestation of pain. Blood pressures are doing a little better more recently. No indication for antihypertensive medications. (4) Acute kidney injury: Status: Acute Assessment and plan: Possible prerenal component secondary to third spacing of fluids. May have ATN. Continue IV hydration. IV albumin as above. Urine for sodium and creatinine. Monitor urine output. Monitor labs. IV fluids changed to be free of potassium. (5) Hyperglycemia: Status: Acute Assessment and plan: May be in response to stress. Glucose containing IV fluid discontinued. May be developing insulin deficiency from his severe pancreatitis. Fingerstick blood sugars every 6 hours with low-dose short acting insulin over the next 24 hours to determine if basal insulin will be needed. (6) Hyperkalemia: Status: Acute Assessment and plan: He has been receiving potassium containing IV fluids which may be contributing. He also has acute kidney injury which certainly is contributing. IV fluid composition change and is now free of potassium. Recheck potassium level later today. (7) Hypocalcemia: Status: Acute Assessment and plan: Correcting for his low albumin his calcium level is just below population normal. I do not think calcium supplement needed at this time. Ionized calcium will be sent to but results may not be back in time to be of clinical utility. Subjective Subjective Interval history since last seen: Complains of continued severe abdominal pain. Hurts to take a deep breath, hurts to move. No belching, no nausea, no vomiting. He has not had a bowel movement and is not passing much in the way of gas. Urine output has been decreasing. He has not had a fever. He has had a slow increase in his heart rate overnight. No episodes of hypotension, although his blood pressure has been drifting down from hypertensive levels. Blood sugars have been increasing. Not known to have diabetes. Subjectively feeling a bit short of breath but oxygen saturations have been acceptable on room air. No productive cough. He has had no actionable alcohol withdrawal scoring. Fluid balance positive by a little shy of 2 L in the past 24 hours. Call placed to [facility] to discuss case for any recommendations or suggestions regarding modification of current treatment plan. I spoke with Dr. Tsang who recommends continued aggressive hydration, consider adding albumin. May need to have parenteral nutrition or nasal jejunostomy tube placed for nutritional support. Exam Narrative Exam Narrative: Uncomfortable with movement, less uncomfortable lying flat in bed. Temperature 36.7 blood pressure 130/88 pulse rate peaked in the 120s, coming down after fluid bolus. SaO2 92% on room air, 95% on 1 L. Shallow breathing noted, splinting. Sclera anicteric. He has no tremor. Mild tachycardia with no S3 or S4. Shallow inspiratory effort with diminished breath sounds at both bases but no crackles or wheezing heard in the lung robledo. Bowel sounds are present but diminished. He complains of pain with very superficial palpation?a difficult exam to interpret. Extremities warm with good pulses. No pitting edema at the ankles. No petechiae. No tremor. He reluctantly sits up but bending at the waist is quite uncomfortable. Objective Objective Clinical Data: Abnormal lab results 12/26/19 12/26/19 12/26/19 Range/Units 17:00 17:00 17:00 WBC 18.08 H D (4.4-10.8) k/cumm Hgb 17.8 H (13.5-17.5) g/dL Hct 51.6 H (40.0-50.0) % MCV 95.7 H (80-95) fL RDW (11.8-14.1) % Absolute Neutrophils 15.91 H (1.2-6.7) k/cumm Absolute Lymphocytes 0.72 L (1.2-3.4) k/cumm Absolute Monocytes 1.45 H (0.11-0.7) k/cumm VBG pH 7.33 L (7.35-7.45) Sodium 131 L (136-145) mmol/L Potassium 5.4 H D (3.5-5.1) mmol/L BUN 21 H D (7-18) mg/dL Creatinine 1.94 H D (0.70-1.30) mg/dL Glucose 241 H (74-106) mg/dL Calcium 6.9 L (8.5-10.1) mg/dL AST (15-37) U/L Albumin (3.4-5.0) g/dL 12/26/19 12/27/19 12/27/19 Range/Units 17:00 06:05 06:05 WBC 16.57 H (4.4-10.8) k/cumm Hgb (13.5-17.5) g/dL Hct (40.0-50.0) % MCV 97.8 H (80-95) fL RDW 14.2 H (11.8-14.1) % Absolute Neutrophils (1.2-6.7) k/cumm Absolute Lymphocytes (1.2-3.4) k/cumm Absolute Monocytes (0.11-0.7) k/cumm VBG pH (7.35-7.45) Sodium 134 L (136-145) mmol/L Potassium 5.2 H (3.5-5.1) mmol/L BUN 30 H D (7-18) mg/dL Creatinine 2.32 H (0.70-1.30) mg/dL Glucose 298 H (74-106) mg/dL Calcium 6.7 L (8.5-10.1) mg/dL AST 45 H (15-37) U/L Albumin 2.6 L 2.2 L (3.4-5.0) g/dL Vital Signs Temperature 36.7 C 12/27/19 11:14 Temperature Source Tympanic 12/27/19 11:14 Pulse 107 H 12/27/19 11:14 Pulse Rhythm Regular 12/27/19 08:10 Pulse 112 H 12/26/19 08:17 Respiratory Rate 19 12/27/19 11:14 Respiratory Effort Non-Labored 12/27/19 08:10 Respiratory Depth Shallow 12/27/19 08:10 Respiratory Pattern Normal 12/27/19 08:10 Blood Pressure 130/88 12/27/19 11:14 Blood Pressure Mean 106 12/26/19 08:17 Pulse Oximetry 95 12/27/19 11:14 Oxygen Delivery Method Nasal Cannula 12/27/19 11:14 Oxygen Flow Rate 1 12/27/19 11:14 Pain Level 10 12/27/19 11:45 Intake & Output 12/26/19 12/26/19 12/27/19 11:59 23:59 11:59 Intake Total 993.75 / 1992.75 1000 / 1992.75 380 / 380 Output Total 100 / 100 250 / 250 Balance 893.75 / 1893.75 1000 / 1893.75 130 / 130 Weight 81.647 kg Intake: IV 993.75 / 1992.75 1000 / 1992.75 380 / 380 Output: Urine 100 / 100 250 / 250 Other: Urine Color Dark Elvia Yellow Dark Elvia Urine Appearance Clear Clear Clear Urine Odor None None Comment large amount of urine unmeasured. pt went in toilet, provided with a urinal notified rn Voiding Methods Toilet Urinal Laboratory Results WBC 16.57 k/cumm (4.4-10.8) H 12/27/19 06:05 RBC 4.94 m/cumm (4.50-6.00) 12/27/19 06:05 Hgb 16.1 g/dL (13.5-17.5) 12/27/19 06:05 Hct 48.3 % (40.0-50.0) 12/27/19 06:05 MCV 97.8 fL (80-95) H 12/27/19 06:05 MCH 32.6 pg (27.0-33.0) 12/27/19 06:05 MCHC 33.3 g/dL (32.0-36.0) 12/27/19 06:05 RDW 14.2 % (11.8-14.1) H 12/27/19 06:05 Plt Count 203 x1000/uL (130-400) 12/27/19 06:05 MPV 10.0 fL (8.0-11.0) 12/27/19 06:05 Immature Gran % 0.0 % 12/26/19 17:00 Neutrophils % 87.0 12/26/19 17:00 Band Neutrophils % 1.0 % 12/26/19 17:00 Lymphocytes % 4.0 12/26/19 17:00 Monocytes % 8.0 12/26/19 17:00 Eosinophils % 0.0 12/26/19 17:00 Basophils % 0.0 12/26/19 17:00 Absolute Neutrophils 15.91 k/cumm (1.2-6.7) H 12/26/19 17:00 Absolute Lymphocytes 0.72 k/cumm (1.2-3.4) L 12/26/19 17:00 Absolute Monocytes 1.45 k/cumm (0.11-0.7) H 12/26/19 17:00 Absolute Eosinophils 0.00 k/cumm (0.0-0.7) 12/26/19 17:00 Absolute Basophils 0.00 k/cumm (0.0-0.2) 12/26/19 17:00 Differential Comment Manual differential 12/26/19 17:00 RBC Morphology Normal 12/26/19 17:00 VBG pH 7.33 (7.35-7.45) L 12/26/19 17:00 VBG pCO2 40 mm/Hg (34-47) 12/26/19 17:00 VBG pO2 37 mm/Hg (28-44) 12/26/19 17:00 VBG HCO3 Not Applicable 12/26/19 17:00 VBG Total CO2 Not Applicable 12/26/19 17:00 VBG O2 Saturation Not Applicable 12/26/19 17:00 VBG Base Excess Not Applicable 12/26/19 17:00 Sodium 134 mmol/L (136-145) L 12/27/19 06:05 Potassium 5.2 mmol/L (3.5-5.1) H 12/27/19 06:05 Chloride 104 mmol/L (98-107) 12/27/19 06:05 Carbon Dioxide 21.1 mmol/L (21.0-32.0) 12/27/19 06:05 Anion Gap 8.9 mmol/L (3-11) 12/27/19 06:05 BUN 30 mg/dL (7-18) H D 12/27/19 06:05 Creatinine 2.32 mg/dL (0.70-1.30) H 12/27/19 06:05 Estimated GFR/1.73 m2 30.20 (mL/min/1.73m2) 12/27/19 06:05 Glucose 298 mg/dL (74-106) H 12/27/19 06:05 Calcium 6.7 mg/dL (8.5-10.1) L 12/27/19 06:05 Total Bilirubin 0.9 mg/dL (0.2-1.0) 12/27/19 06:05 AST 45 U/L (15-37) H 12/27/19 06:05 ALT 25 U/L (16-63) 12/27/19 06:05 Alkaline Phosphatase 75 U/L (46-116) 12/27/19 06:05 Total Protein 6.4 g/dL (6.4-8.2) 12/27/19 06:05 Albumin 2.2 g/dL (3.4-5.0) L 12/27/19 06:05 Lipase 3090 U/L (73-393) H 12/26/19 05:58 COVID-19 PCR Negative (Negative) 12/26/19 00:55 Nasopharyn COVID-19 PCR Not Applicable 12/26/19 00:55 Ref Test Perform Site [facility] lab 12/26/19 00:55 Blood cultures no growth thus far. Chest x-ray limited inspiration, the aerated portions of the lungs are clear of infiltrate.
[2019-12-27 12:07] LABS: Sodium, Urine 3 mmol/L
[2019-12-27 12:09] LABS: Creatinine,Urine 512.65 mg/dL
[2019-12-27] MEDS: ALBUMIN HUMAN 25 GM/100 ML BTL IV (13:54)
[2019-12-27 14:23] LABS: Anion Gap 8.3 mmol/L (3-11); BUN 33 mg/dL (7-18); CO2 21.7 mmol/L (21.0-32.0); CREATININE 1.95 mg/dL (0.70-1.30); Chloride 104 mmol/L (98-107); Glucose 195 mg/dL (74-106); Potassium 4.4 mmol/L (3.5-5.1); Sodium 134 mmol/L (136-145)
--- NOTE | 2019-12-27 14:34 | CHAPLAIN ---
Diogo was resting in bed when I visited he was pleasant and thanked me for checking in with him. He said he has been in touch with family by phone. He was not interested in a longer conversation.
[2019-12-27] MEDS: Lactated Ringers 1,000 ML 200 ML IV ×2 (15:44→20:28)
[2019-12-28] VITALS (11 sets, daily range): BP systolic 140–156; BP diastolic 83–100; PULSE 104–121; RESP 17–21; TEMP 36.8–37.8; O2SAT 94–98
[2019-12-28] MEDS: HYDROmorphone 2 MG/ML VIAL IVP ×8 (01:06→20:44)
[2019-12-28] MEDS: Normal Saline Flush 10 ML SYR IVP ×5 (01:06→20:44)
[2019-12-28] MEDS: Lactated Ringers 1,000 ML 200 ML IV ×4 (01:08→17:01)
[2019-12-28 07:17] LABS: HCT 37.3 % (40.0-50.0); HGB 12.4 g/dL (13.5-17.5); Mean Corp. HGB Concentration 33.2 g/dL (32.0-36.0); Mean Corpuscular Hemoglobin 32.9 pg (27.0-33.0); Mean Corpuscular Volume 98.9 fL (80-95); Mean Platelet Volume 9.9 fL (8.0-11.0); Platelet Count 164 x1000/uL (130-400); RBC 3.77 m/cumm (4.50-6.00); RBC Distribution Width 14.2 % (11.8-14.1); White Blood Cell Count 12.56 k/cumm (4.4-10.8)
[2019-12-28 07:27] LABS: BUN 25 mg/dL (7-18); CREATININE 1.35 mg/dL (0.70-1.30); Calcium 7.2 mg/dL (8.5-10.1); Chloride 104 mmol/L (98-107); Estimated GFR 56.41 (mL/min/1.73m2); Glucose 134 mg/dL (74-106); Potassium 4.1 mmol/L (3.5-5.1); Sodium 139 mmol/L (136-145)
[2019-12-28 07:41] LABS: Albumin 2.3 g/dL (3.4-5.0)
[2019-12-28] MEDS: Pantoprazole 40 MG VIAL IVP (08:36)
--- NOTE | 2019-12-28 09:58 | CMPROGNOTE_ITS ---
- If Service Date Differs Date of service: 12/28/19 Time of Service: 09:58 Care Management Progress Note S/O:Diogo was reclining in bed when CM met with him. He was pleasant and engaged readily with CM but stated that he is still having a lot of pain. He denied nausea or vomiting. Diogo has not exhibited any symptoms of alcohol withdrawal and has not [id number] at all on the CIWA scale for the past 24 hours. CM assisted Diogo with the completion of the [facility] Patient Assistance application, as he was found not to be eligible for Medicaid at this time. Diogo shared some details of his relationship with his girlfriend and the fact that they have been happily together for 6 years. A: Diogo is a 49 year old man admitted on 12/26/19 with pancreatitis P: Diogo is being treated for pancreatitis. He will be discharged home when medically ready per provider. CM made a referral to [facility] to assist with insurance resources. CM will continue to support patient and to assess for discharge needs.
[2019-12-28 10:09] LABS: C-Reactive Protein > 25.00 mg/dL (0.0-0.3)
[2019-12-28 10:19] LABS: Procalcitonin 1.1 ng/mL
[2019-12-28] MEDS: IMIPENEM/CILASTATIN 500 MG in Normal Saline 100 ML 200 MG IVPB ×2 (14:31→20:23)
--- NOTE | 2019-12-28 14:48 | W.PM.PROGNOT ---
Date of Service Date of service: 12/28/19 Time of Service: 14:48 Assessment and Plan Assessment and plan (1) Acute necrotizing pancreatitis: Status: Acute Assessment and plan: I am concerned about procalcitonin being elevated in this setting. While there is no abscess/phlegmon, and blood cultures are negative, I think that elevated procalcitonin does warrant initiation of antibiotics - imipenem/cilastin to be started now. Will trend CRP/procalcitonin. Monitor respiratory status - will get CXR now. Low threshold for transfer to ICU. Encourage IS. Will try sips of water with ice chips tonight. Consider surgery consult. (2) Alcohol abuse: Status: Chronic Assessment and plan: Latest CIWA scores have been zero. On prn PO/SL lorazepam. Add IV thiamine for today; if able to take PO tomorrow, start MVI tomorrow. (3) Elevated blood pressure reading: Status: Acute Assessment and plan: For now, focus on pain control. (4) Acute kidney injury: Status: Acute Assessment and plan: ? Prerenal vs ATN. Improving with IV hydration. Continue IVF. Monitor I/O's. Obtain CXR to ensure no fluid overload. (5) Hyperglycemia: Status: Acute Assessment and plan: Agree that this could be insulin deficiency from his severe pancreatitis. Continue SSI. FBG 122 this am. (6) Hyperkalemia: Status: Resolved Assessment and plan: Recheck in am. (7) Hypocalcemia: Status: Resolved Assessment and plan: Recheck in am. (8) Discharge planning issues: Status: Acute Assessment and plan: Full code Continues to require hospitalization with low threshold to transfer to ICU/tertiary care facility (9) DVT prophylaxis: Status: Acute Assessment and plan: Start SC heparin Subjective Subjective Interval history since last seen: Mr Martinez states that he overall feels better now than when he first came in, but continues to describe severe abdominal cramping and spasms, different from his prior episode of pancreatitis. Denies dizziness, chest pain, but does feel short of breath - it is hard to take a deep breath due to pain. Has been using IS, but has difficulties with it. Has had a cough, but does not know color of sputum - has not been spitting it out. Denies nausea. No flatus/BM. Feels thirsty, not so much hungry. Exam Narrative Exam Narrative: General: Very pleasant obese male, A&Ox3, uncomfortable with trying to sit up - visibly in pain HEENT: EOMI, dry MM Heart: RRR, mildly tachycardic Lungs: CTAB, though diminished at B bases Abdomen: distended, soft, tender especially in epigastrium Extremities: no e/c/c BLE's Objective Objective Clinical Data: Abnormal lab results 12/27/19 12/28/19 12/28/19 Range/Units 14:01 06:55 06:55 WBC 12.56 H (4.4-10.8) k/cumm RBC 3.77 L (4.50-6.00) m/cumm Hgb 12.4 L D (13.5-17.5) g/dL Hct 37.3 L D (40.0-50.0) % MCV 98.9 H (80-95) fL RDW 14.2 H (11.8-14.1) % BUN 25 H (7-18) mg/dL Creatinine 1.35 H (0.70-1.30) mg/dL Glucose 134 H (74-106) mg/dL Calcium 7.2 L (8.5-10.1) mg/dL Ionized Calcium 0.90 L (1.12-1.32) mmol/L C-Reactive Protein > 25.00 H (0.0-0.3) mg/dL Albumin (3.4-5.0) g/dL 12/28/19 Range/Units 06:55 WBC (4.4-10.8) k/cumm RBC (4.50-6.00) m/cumm Hgb (13.5-17.5) g/dL Hct (40.0-50.0) % MCV (80-95) fL RDW (11.8-14.1) % BUN (7-18) mg/dL Creatinine (0.70-1.30) mg/dL Glucose (74-106) mg/dL Calcium (8.5-10.1) mg/dL Ionized Calcium (1.12-1.32) mmol/L C-Reactive Protein (0.0-0.3) mg/dL Albumin 2.3 L (3.4-5.0) g/dL Vital Signs Temperature 37.8 C H 12/28/19 13:12 Temperature Source Tympanic 12/28/19 13:12 Pulse 109 H 12/28/19 13:12 Pulse Rhythm Regular 12/28/19 09:07 Pulse 112 H 12/26/19 08:17 Respiratory Rate 20 12/28/19 13:12 Respiratory Effort Non-Labored 12/28/19 09:07 Respiratory Depth Shallow 12/28/19 09:07 Respiratory Pattern Normal 12/28/19 09:07 Blood Pressure 140/90 12/28/19 13:12 Blood Pressure Mean 106 12/26/19 08:17 Pulse Oximetry 94 L 12/28/19 13:12 Oxygen Delivery Method Room Air 12/28/19 13:12 Oxygen Flow Rate 0 12/28/19 13:12 Pain Level 6 12/28/19 13:12 Intake & Output 12/27/19 12/28/19 12/28/19 23:59 11:59 23:59 Intake Total 1946.667 / 2326.667 2920.000 / 3920.000 1000 / 3920.000 Output Total 275 / 525 300 / 500 200 / 500 Balance 1671.667 / 4818.267 7756.000 / 3420.000 800 / 3420.000 Intake: IV 1946.667 / 2326.667 2920.000 / 3920.000 1000 / 3920.000 Output: Urine 275 / 525 300 / 500 200 / 500 Other: Urine Color Dark Elvia Light Elvia Light Elvia [place] Urine Appearance Clear Clear Clear Urine Odor None Strong Comment PVR 92 Voiding Methods Urinal Urinal Laboratory Results WBC 12.56 k/cumm (4.4-10.8) H 12/28/19 06:55 RBC 3.77 m/cumm (4.50-6.00) L 12/28/19 06:55 Hgb 12.4 g/dL (13.5-17.5) L D 12/28/19 06:55 Hct 37.3 % (40.0-50.0) L D 12/28/19 06:55 MCV 98.9 fL (80-95) H 12/28/19 06:55 MCH 32.9 pg (27.0-33.0) 12/28/19 06:55 MCHC 33.2 g/dL (32.0-36.0) 12/28/19 06:55 RDW 14.2 % (11.8-14.1) H 12/28/19 06:55 Plt Count 164 x1000/uL (130-400) 12/28/19 06:55 MPV 9.9 fL (8.0-11.0) 12/28/19 06:55 Immature Gran % 0.0 % 12/26/19 17:00 Neutrophils % 87.0 12/26/19 17:00 Band Neutrophils % 1.0 % 12/26/19 17:00 Lymphocytes % 4.0 12/26/19 17:00 Monocytes % 8.0 12/26/19 17:00 Eosinophils % 0.0 12/26/19 17:00 Basophils % 0.0 12/26/19 17:00 Absolute Neutrophils 15.91 k/cumm (1.2-6.7) H 12/26/19 17:00 Absolute Lymphocytes 0.72 k/cumm (1.2-3.4) L 12/26/19 17:00 Absolute Monocytes 1.45 k/cumm (0.11-0.7) H 12/26/19 17:00 Absolute Eosinophils 0.00 k/cumm (0.0-0.7) 12/26/19 17:00 Absolute Basophils 0.00 k/cumm (0.0-0.2) 12/26/19 17:00 Differential Comment Manual differential 12/26/19 17:00 RBC Morphology Normal 12/26/19 17:00 VBG pH 7.33 (7.35-7.45) L 12/26/19 17:00 VBG pCO2 40 mm/Hg (34-47) 12/26/19 17:00 VBG pO2 37 mm/Hg (28-44) 12/26/19 17:00 VBG HCO3 Not Applicable 12/26/19 17:00 VBG Total CO2 Not Applicable 12/26/19 17:00 VBG O2 Saturation Not Applicable 12/26/19 17:00 VBG Base Excess Not Applicable 12/26/19 17:00 Sodium 139 mmol/L (136-145) 12/28/19 06:55 Potassium 4.1 mmol/L (3.5-5.1) 12/28/19 06:55 Chloride 104 mmol/L (98-107) 12/28/19 06:55 Carbon Dioxide 26.0 mmol/L (21.0-32.0) 12/28/19 06:55 Anion Gap 9.0 mmol/L (3-11) 12/28/19 06:55 BUN 25 mg/dL (7-18) H 12/28/19 06:55 Creatinine 1.35 mg/dL (0.70-1.30) H 12/28/19 06:55 Estimated GFR/1.73 m2 56.41 (mL/min/1.73m2) 12/28/19 06:55 Glucose 134 mg/dL (74-106) H 12/28/19 06:55 Calcium 7.2 mg/dL (8.5-10.1) L 12/28/19 06:55 Ionized Calcium 0.90 mmol/L (1.12-1.32) L 12/27/19 14:01 Total Bilirubin 0.9 mg/dL (0.2-1.0) 12/27/19 06:05 AST 45 U/L (15-37) H 12/27/19 06:05 ALT 25 U/L (16-63) 12/27/19 06:05 Alkaline Phosphatase 75 U/L (46-116) 12/27/19 06:05 C-Reactive Protein > 25.00 mg/dL (0.0-0.3) H 12/28/19 06:55 Total Protein 6.4 g/dL (6.4-8.2) 12/27/19 06:05 Albumin 2.3 g/dL (3.4-5.0) L 12/28/19 06:55 Lipase 3090 U/L (73-393) H 12/26/19 05:58 Procalcitonin 1.1 ng/mL 12/28/19 06:55 Ur Random Creatinine 512.65 mg/dL 12/27/19 11:43 Ur Random Sodium 3 mmol/L 12/27/19 11:43 COVID-19 PCR Negative (Negative) 12/26/19 00:55 Nasopharyn COVID-19 PCR Not Applicable 12/26/19 00:55 Ref Test Perform Site [place] [facility] 12/26/19 00:55
--- NOTE | 2019-12-28 15:05 | DI.RAD_ITS ---
EXAM: XR PORTABLE CHEST AP CLINICAL HISTORY: shortness of breath TECHNIQUE: 2D digital imaging was performed. COMPARISON: CR XR PORTABLE CHEST AP from 12/27/2019 FINDINGS: MEDIASTINUM: Normal. HEART: Normal. PULMONARY VASCULATURE: Normal. LUNGS: Bilateral basilar infiltrates. PLEURAL SPACE: There may be trace bilateral pleural effusions. No pneumothorax. BONE:No acute abnormality. OTHER FINDINGS:Normal. IMPRESSION: Bilateral basilar infiltrates. DATA REPOSITORY: RADIATION DOSE DELIVERED:
--- NOTE | 2019-12-28 15:33 | DI.VRAD_ITS ---
PROCEDURE INFORMATION: Exam: XR Chest, 1 View Exam date and time: 12/28/2019 3:06 PM Age: 49 years old Clinical indication: Other: Shortness of breath TECHNIQUE: Imaging protocol: XR of the chest Views: 1 view. Other technique: Portable exam. COMPARISON: CR XR PORTABLE CHEST AP 12/27/2019 8:20 AM FINDINGS: Lungs: There are increased markings at both lung bases medially. These appear more conspicuous than prior study. The lungs are slightly hypoinflated. Pleural space: Probable trace bilateral pleural effusions. Heart/Mediastinum: Unremarkable. No cardiomegaly. Bones/joints: Unremarkable. IMPRESSION: Bibasilar markings concerning for consolidation. Follow-up recommended. COMMENTS: Preliminary interpretation is based on receipt of 1 image(s). A final report will be issued subsequently. Dictated and Authenticated by: Nury Phipps MD. Ordering:MARQUIS Irby MD
[2019-12-28] MEDS: ACETAMINOPHEN 1,000 MG/100 ML BTL 400 MG IVPB (16:15)
[2019-12-28] MEDS: Heparin 5,000 UNITS/ML VIAL 5000 UNITS SC (16:15)
[2019-12-28] MEDS: THIAMINE 100 MG in Normal Saline 100 ML 200 MG IVPB (17:00)
[2019-12-29] VITALS (9 sets, daily range): BP systolic 124–160; BP diastolic 62–91; PULSE 75–101; RESP 15–20; TEMP 36.8–37.6; O2SAT 94–99
[2019-12-29] MEDS: Lactated Ringers 1,000 ML 200 ML IV ×3 (00:14→23:10)
[2019-12-29] MEDS: ACETAMINOPHEN 1,000 MG/100 ML BTL 400 MG IVPB ×4 (00:14→23:09)
[2019-12-29] MEDS: Heparin 5,000 UNITS/ML VIAL 5000 UNITS SC ×4 (00:15→23:09)
[2019-12-29] MEDS: Normal Saline Flush 10 ML SYR IVP ×3 (00:25→07:33)
[2019-12-29] MEDS: HYDROmorphone 2 MG/ML VIAL IVP ×5 (00:25→23:06)
[2019-12-29] MEDS: IMIPENEM/CILASTATIN 500 MG in Normal Saline 100 ML 200 MG IVPB ×4 (02:02→20:47)
[2019-12-29 07:41] LABS: Abs Immature Grans 0.13 k/cumm (0.0-0.09); Absolute Monocyte Count 1.54 k/cumm (0.11-0.7); Absolute Neutrophil Count 10.83 k/cumm (1.2-6.7); Basophils % 0.1; Eosinophils % 0.7; HGB 11.4 g/dL (13.5-17.5); Lymphocytes % 6.7; Mean Corp. HGB Concentration 33.5 g/dL (32.0-36.0); Mean Corpuscular Hemoglobin 32.9 pg (27.0-33.0); Mean Platelet Volume 9.9 fL (8.0-11.0); Monocytes % 11.4; Neutrophils % 80.1; Platelet Count 180 x1000/uL (130-400); RBC 3.47 m/cumm (4.50-6.00); RBC Distribution Width 13.8 % (11.8-14.1); White Blood Cell Count 13.52 k/cumm (4.4-10.8)
[2019-12-29] MEDS: Pantoprazole 40 MG VIAL IVP (07:50)
[2019-12-29 07:53] LABS: Anion Gap 15.2 mmol/L (3-11); BUN 16 mg/dL (7-18); CO2 20.8 mmol/L (21.0-32.0); CREATININE 1.02 mg/dL (0.70-1.30); Calcium 7.4 mg/dL (8.5-10.1); Chloride 102 mmol/L (98-107); Glucose 115 mg/dL (74-106); Magnesium 1.7 mg/dL (1.8-2.4); Potassium 3.4 mmol/L (3.5-5.1); Sodium 138 mmol/L (136-145)
[2019-12-29 07:55] LABS: Absolute Basophil Count 0.01 k/cumm (0.0-0.2); Absolute Eosinophil Count 0.09 k/cumm (0.0-0.7); Absolute Lymphocyte Count 0.91 k/cumm (1.2-3.4)
[2019-12-29 08:10] LABS: C-Reactive Protein > 25.00 mg/dL (0.0-0.3)
[2019-12-29 08:35] LABS: Diff Comment Agrees w/ Instrument; RBC Morphology Normal
--- NOTE | 2019-12-29 09:10 | PDOC.CMPRO ---
- If Service Date Differs Date of service: 12/29/19 Time of Service: 09:11 Care Management Progress Note S/O:Diogo was reclining in bed when CM met with him. He was pleasant and engaged readily with CM but stated that he is still having a lot of pain. He denied nausea or vomiting. Diogo complained of being very tired. He has been unable to sleep in his bed or the recliner. He is requesting PRN sleeping pill tonight. CM coordinated a face time call between Diogo and his girlfriend Justin, which both appreciated and enjoyed. A: Diogo is a 49 year old man admitted on 12/26/19 with pancreatitis P: Diogo is being treated for pancreatitis. He will be discharged home when medically ready per provider. CM made a referral to [facility] to assist with insurance resources. CM will continue to support patient and to assess for discharge needs.
[2019-12-29] MEDS: THIAMINE 100 MG in Normal Saline 100 ML 200 MG IVPB (09:18)
[2019-12-29] MEDS: POTASSIUM CHLORIDE 20 MEQ/100 ML BAG 50 MEQ IVPB ×2 (10:19→13:36)
[2019-12-29] MEDS: MAGNESIUM SULFATE 2 GM/50 ML BAG IVPB (10:20)
--- NOTE | 2019-12-29 11:10 | PGE_ITS ---
Date of Service Date of service: 12/29/19 Time of Service: 11:10 Assessment and Plan Assessment and plan (1) Acute necrotizing pancreatitis: Status: Acute Assessment and plan: This seems to be clinically improving, though I am noting a temp of 38.1 just reported to me. Continue to trend CRP/procalcitonin. Advance diet to clears. Fever could be due to possible developing infection in the pancreas +/- atelectasis vs developing PNA (this was unclear on CXR yesterday, does have an elevation of procalcitonin) - continue IS, empiric primaxin (day 2). Will plan to repeat abdominal and chest imaging tomorrow. (2) SIRS (systemic inflammatory response syndrome): Status: Acute Assessment and plan: Sources: pancreatitis +/- developing pancreatic infection, atelectasis, +/- PNA. Repeat blood cultures, obtain UA, encourage IS. Plan to repeat imaging tomorrow (both abdominal and chest). Recheck CRP/procalcitonin in am. If procalcitonin not better, would add vancomycin to empiric primaxin. (3) Atelectasis of both lungs: Status: Acute Assessment and plan: This is already clinically improving with IS. Plan to repeat CXR tomorrow to ensure no PNA has developed. Continue to encourage IS. (4) Alcohol abuse: Status: Chronic Assessment and plan: Latest CIWA scores have been zero. On prn PO/SL lorazepam. Start MVI, transition thiamine to PO. (5) Elevated blood pressure reading: Status: Chronic Assessment and plan: BP well controlled at this time. Was likely reflective of pain. (6) Acute kidney injury: Status: Resolved Assessment and plan: ? Prerenal vs ATN. Continue IVF more so for pancreatitis. Monitor I/O's. (7) Hyperglycemia: Status: Acute Assessment and plan: A1C 5.6. Agree that this could be insulin deficiency from his severe pancreatitis. Continue SSI. (8) Hyperkalemia: Status: Resolved Assessment and plan: Recheck in am. (9) Hypocalcemia: Status: Resolved Assessment and plan: Recheck in am. (10) Discharge planning issues: Status: Acute Assessment and plan: Full code Continues to require hospitalization with low threshold to transfer to ICU/tertiary care facility (11) DVT prophylaxis: Status: Acute Assessment and plan: SC heparin Subjective Subjective Interval history since last seen: Mr Barba states his pain in epigastrium is much better today, but he is having pain on his bilateral sides in lower abdomen and also in his back. He states his back normally bothers him, but not this much, and he attributes this pain to the mattress he has been sleeping on here. No evidence of urinary retention. Denies dizziness, chest pain. States he feels less short of breath and states he is doing better wth IS. Denies n/v. + flatus. - BM. Interested in having clears for lunch - did ok with sips/chips. Exam Narrative Exam Narrative: General: Very pleasant obese male, A&Ox3, Looks more comfortable today and is ambulating around the room when I saw him HEENT: EOMI, dry MM Heart: RRR, no m/r/g Lungs: CTAB with significantl improved aeration at B bases Abdomen: distended, soft, not tender in epigastrium but laterally on either side in the lower abdomen Extremities: no e/c/c BLE's Objective Objective Clinical Data: Abnormal lab results 12/29/19 12/29/19 Range/Units 07:15 07:15 WBC 13.52 H (4.4-10.8) k/cumm RBC 3.47 L (4.50-6.00) m/cumm Hgb 11.4 L (13.5-17.5) g/dL Hct 34.0 L (40.0-50.0) % MCV 98.0 H (80-95) fL Absolute Neutrophils 10.83 H (1.2-6.7) k/cumm Absolute Lymphocytes 0.91 L (1.2-3.4) k/cumm Absolute Monocytes 1.54 H (0.11-0.7) k/cumm Potassium 3.4 L (3.5-5.1) mmol/L Carbon Dioxide 20.8 L (21.0-32.0) mmol/L Anion Gap 15.2 H (3-11) mmol/L Glucose 115 H (74-106) mg/dL Calcium 7.4 L (8.5-10.1) mg/dL Magnesium 1.7 L (1.8-2.4) mg/dL C-Reactive Protein > 25.00 H (0.0-0.3) mg/dL Vital Signs Temperature 36.8 C 12/29/19 10:13 Temperature Source Temporal Artery Scan 12/29/19 07:25 Pulse 92 H 12/29/19 10:13 Pulse Rhythm Regular 12/29/19 07:30 Pulse 112 H 12/26/19 08:17 Respiratory Rate 15 12/29/19 10:13 Respiratory Effort Non-Labored 12/29/19 07:30 Respiratory Depth Shallow 12/29/19 07:30 Respiratory Pattern Normal 12/29/19 07:30 Blood Pressure 128/62 12/29/19 10:13 Blood Pressure Mean 106 12/26/19 08:17 Pulse Oximetry 99 12/29/19 10:13 Oxygen Delivery Method Room Air 12/29/19 10:13 Oxygen Flow Rate 0 12/29/19 10:13 Pain Level 5 12/29/19 10:13 Comment 12/29/19 06:00 Intake & Output 12/28/19 12/28/19 12/29/19 11:59 23:59 11:59 Intake Total 2920.000 / 6321.000 3401 / 6321.000 210 / 210 Output Total 300 / 920 620 / 920 1130 / 1130 Balance 2620.000 / 5401.000 2781 / 5401.000 -920 / -920 Intake: IV 2920.000 / 6321.000 3401 / 6321.000 210 / 210 Output: Urine 300 / 920 620 / 920 1130 / 1130 Other: Urine Color Light Elvia Dark Elvia Light Elvia [place] Urine Appearance Clear Clear Clear Urine Odor Strong None Normal Voiding Methods Urinal Urinal Urinal Laboratory Results WBC 13.52 k/cumm (4.4-10.8) H 12/29/19 07:15 RBC 3.47 m/cumm (4.50-6.00) L 12/29/19 07:15 Hgb 11.4 g/dL (13.5-17.5) L 12/29/19 07:15 Hct 34.0 % (40.0-50.0) L 12/29/19 07:15 MCV 98.0 fL (80-95) H 12/29/19 07:15 MCH 32.9 pg (27.0-33.0) 12/29/19 07:15 MCHC 33.5 g/dL (32.0-36.0) 12/29/19 07:15 RDW 13.8 % (11.8-14.1) 12/29/19 07:15 Plt Count 180 x1000/uL (130-400) 12/29/19 07:15 MPV 9.9 fL (8.0-11.0) 12/29/19 07:15 Immature Gran % 1.0 % 12/29/19 07:15 Neutrophils % 80.1 12/29/19 07:15 Band Neutrophils % 1.0 % 12/26/19 17:00 Lymphocytes % 6.7 12/29/19 07:15 Monocytes % 11.4 12/29/19 07:15 Eosinophils % 0.7 12/29/19 07:15 Basophils % 0.1 12/29/19 07:15 Absolute Neutrophils 10.83 k/cumm (1.2-6.7) H 12/29/19 07:15 Absolute Lymphocytes 0.91 k/cumm (1.2-3.4) L 12/29/19 07:15 Absolute Monocytes 1.54 k/cumm (0.11-0.7) H 12/29/19 07:15 Absolute Eosinophils 0.09 k/cumm (0.0-0.7) 12/29/19 07:15 Absolute Basophils 0.01 k/cumm (0.0-0.2) 12/29/19 07:15 Differential Comment Agrees w/ instrument 12/29/19 07:15 RBC Morphology Normal 12/29/19 07:15 VBG pH 7.33 (7.35-7.45) L 12/26/19 17:00 VBG pCO2 40 mm/Hg (34-47) 12/26/19 17:00 VBG pO2 37 mm/Hg (28-44) 12/26/19 17:00 VBG HCO3 Not Applicable 12/26/19 17:00 VBG Total CO2 Not Applicable 12/26/19 17:00 VBG O2 Saturation Not Applicable 12/26/19 17:00 VBG Base Excess Not Applicable 12/26/19 17:00 Sodium 138 mmol/L (136-145) 12/29/19 07:15 Potassium 3.4 mmol/L (3.5-5.1) L 12/29/19 07:15 Chloride 102 mmol/L (98-107) 12/29/19 07:15 Carbon Dioxide 20.8 mmol/L (21.0-32.0) L 12/29/19 07:15 Anion Gap 15.2 mmol/L (3-11) H 12/29/19 07:15 BUN 16 mg/dL (7-18) D 12/29/19 07:15 Creatinine 1.02 mg/dL (0.70-1.30) 12/29/19 07:15 Estimated GFR/1.73 m2 >= 60.00 (mL/min/1.73m2) 12/29/19 07:15 Glucose 115 mg/dL (74-106) H 12/29/19 07:15 Calcium 7.4 mg/dL (8.5-10.1) L 12/29/19 07:15 Ionized Calcium 0.90 mmol/L (1.12-1.32) L 12/27/19 14:01 Magnesium 1.7 mg/dL (1.8-2.4) L 12/29/19 07:15 Total Bilirubin 0.9 mg/dL (0.2-1.0) 12/27/19 06:05 AST 45 U/L (15-37) H 12/27/19 06:05 ALT 25 U/L (16-63) 12/27/19 06:05 Alkaline Phosphatase 75 U/L (46-116) 12/27/19 06:05 C-Reactive Protein > 25.00 mg/dL (0.0-0.3) H 12/29/19 07:15 Total Protein 6.4 g/dL (6.4-8.2) 12/27/19 06:05 Albumin 2.3 g/dL (3.4-5.0) L 12/28/19 06:55 Lipase 3090 U/L (73-393) H 12/26/19 05:58 Procalcitonin 1.1 ng/mL 12/28/19 06:55 Ur Random Creatinine 512.65 mg/dL 12/27/19 11:43 Ur Random Sodium 3 mmol/L 12/27/19 11:43 COVID-19 PCR Negative (Negative) 12/26/19 00:55 Nasopharyn COVID-19 PCR Not Applicable 12/26/19 00:55 Ref Test Perform Site [place] [facility] lab 12/26/19 00:55
[2019-12-29] MEDS: Docusate Sodium 100 MG CAP PO (11:42)
[2019-12-29] MEDS: Insulin Aspart 300 UNITS/3 ML PEN SC ×3 (11:43→21:36)
[2019-12-29 13:59] LABS: Bilirubin Small (Negative); Blood Small (Negative); Clarity Clear (Clear); Glucose Negative (Negative); Ketones 80 mg/dL (Negative); Leukocyte Esterase Negative (Negative); Nitrite Negative (Negative); Specific Gravity >= 1.030 (1.005-1.025)
[2019-12-29 14:09] LABS: RBC 0-2 HPF (0-2); WBC 0-2 HPF (0-5)
[2019-12-29 14:10] LABS: Bacteria Negative HPF (Negative); C & S Indicated? No; Casts Negative LPF (Negative); Crystals Negative HPF (Negative); Epithelial Cells Negative HPF (Negative); Mucus Negative (Negative)
[2019-12-29] MEDS: Zolpidem 5 MG TAB PO (21:35)
[2019-12-30] VITALS (9 sets, daily range): BP systolic 128–159; BP diastolic 75–92; PULSE 82–94; RESP 15–20; TEMP 36.8–37.7; O2SAT 97–100
[2019-12-30] MEDS: IMIPENEM/CILASTATIN 500 MG in Normal Saline 100 ML 200 MG IVPB ×4 (02:05→20:09)
[2019-12-30] MEDS: HYDROmorphone 2 MG/ML VIAL IVP ×6 (02:11→21:10)
[2019-12-30] MEDS: Lactated Ringers 1,000 ML 200 ML IV ×2 (04:18→10:55)
[2019-12-30 06:52] LABS: Abs Immature Grans 0.23 k/cumm (0.0-0.09); Mean Corp. HGB Concentration 33.3 g/dL (32.0-36.0); Mean Corpuscular Hemoglobin 32.5 pg (27.0-33.0); Mean Corpuscular Volume 97.6 fL (80-95); Mean Platelet Volume 10.7 fL (8.0-11.0); RBC 3.69 m/cumm (4.50-6.00); RBC Distribution Width 13.7 % (11.8-14.1); White Blood Cell Count 12.75 k/cumm (4.4-10.8)
[2019-12-30 07:16] LABS: ALT 25 U/L (16-63); AST 44 U/L (15-37); Alkaline Phosphatase 152 U/L (46-116); Anion Gap 5.5 mmol/L (3-11); BUN 10 mg/dL (7-18); Bilirubin, Direct 0.39 mg/dL (0.00-0.20); Bilirubin, Total 0.8 mg/dL (0.2-1.0); CO2 29.5 mmol/L (21.0-32.0); CREATININE 0.91 mg/dL (0.70-1.30); Calcium 7.5 mg/dL (8.5-10.1); Chloride 103 mmol/L (98-107); Glucose 132 mg/dL (74-106); Potassium 3.7 mmol/L (3.5-5.1); Sodium 138 mmol/L (136-145); Total Protein 5.1 g/dL (6.4-8.2)
[2019-12-30] MEDS: ACETAMINOPHEN 1,000 MG/100 ML BTL 400 MG IVPB ×2 (07:50→16:38)
[2019-12-30] MEDS: Thiamine 100 MG TAB PO (07:50)
[2019-12-30] MEDS: Pantoprazole 40 MG VIAL IVP (07:50)
[2019-12-30] MEDS: Multivitamin TAB 1 TAB PO (07:50)
[2019-12-30] MEDS: Heparin 5,000 UNITS/ML VIAL 5000 UNITS SC ×2 (07:51→16:38)
[2019-12-30] MEDS: Normal Saline Flush 10 ML SYR IVP ×4 (07:53→21:10)
[2019-12-30 07:58] LABS: Absolute Eosinophil Count 0.13 k/cumm (0.0-0.7); Absolute Lymphocyte Count 1.15 k/cumm (1.2-3.4); Absolute Monocyte Count 1.79 k/cumm (0.11-0.7); Absolute Neutrophil Count 9.56 k/cumm (1.2-6.7)
[2019-12-30 08:00] LABS: Diff Comment Manual Differential; RBC Morphology Normal
--- NOTE | 2019-12-30 09:47 | CMPROGNOTE_ITS ---
- If Service Date Differs Date of service: 12/30/19 Time of Service: 09:47 Care Management Progress Note S/O: When CM came to see Diogo, he was sitting up in a chair,smiling and announced he felt great because he had had a good night's sleep. He shared that he had received Dilaudid during the night and it really helped him get comfortable. His diet has been advanced to clear liquids and he shared that he is tolerating it well. He hopes to have full liquids for lunch. Objectively, Diogo appears to be doing a bit better. His CRP is a little lower as is his WBC. While he is still experiencing discomfort, his pain has been about about 5/10 for the past 24 hours vs 8-10/10 as it had been before. He is scheduled to have a repeat CT scan tomorrow. A: Diogo is a 49 year old man admitted on 12/26/19 with pancreatitis P: Diogo is being treated for necrotizing pancreatitis. He will be discharged h ome when medically ready per provider. CM made a referral to [facility] [employer] to assist with insurance resources. CM will continue to support patient and to assess for discharge needs.
[2019-12-30] MEDS: Insulin Aspart 300 UNITS/3 ML PEN SC ×3 (13:16→21:11)
--- NOTE | 2019-12-30 13:22 | W.NUTCONSULT ---
Date of service: 12/30/19 Time of Service: 13:22 Nutritional Consult ASSESSMENT: received [employer] Consult for Diogo, however, no dx of DM. Provided education on diet to follow with chronic pancreatitis. Diogo has been NPO x 3 days, started clears 12/29/19. At risk for moderate malnutrition as with 5 days with inadequate intake of nutrients. Met with Diogo today, he reports having frequent bouts of pancreatitis and now is more aware of its triggers - such as ETOH and high fat foods. He states he is ready to eat and go home. Estimated Needs: [id number] kcal, 60-70 g protein, 45-55 g fat NUTRITIONAL DIAGNOSIS: inability to digest lipids due to pancreatitis INTERVENTION: Clear Liquid Diet, advance to Low Fat diet when appropriate Educated Diogo on low fat diet and trigger foods/ETOH common with chronic pancreatitis MONITORING AND EVALUATION: weight, po intake, labs Time Spent in Nutritional Counseling and Treatment: 15 min
--- NOTE | 2019-12-30 14:00 | NUR.NOTE ---
Addendum entered by Amber Taveras 12/30/19 15:58: Noted edema to pt scrotal/penile areas, along with flank areas, and trace edema to B/L ankles. fine crackles to bases of lungs, this is a change from earlier. Pt denies SOB that has worsened, but admits the SOB that he had since previously still exists. Also offers c/o's nicotine cravings, and back pain. Reported above to charge nurse who reached out to the MD. Upon MD arriving in pt room and performing an assessment, new orders noted. Flexeril, decrease in LR to 100/hr and nicotine patch. Hydration provided and left bedside. Original Note: Nursing Note:
--- NOTE | 2019-12-30 16:30 | PGE_ITS ---
Date of Service Date of service: 12/30/19 Time of Service: 16:31 Assessment and Plan Assessment and plan (1) Acute necrotizing pancreatitis: Status: Acute Assessment and plan: Clinically improving. No fevers overnight. CRP improving. Will recheck procalcitonin tomorrow. Continue clears. Continue empiric primaxin (day 3). Repeat imaging ordered. Start to decrease IVF. (2) SIRS (systemic inflammatory response syndrome): Status: Acute Assessment and plan: Sources: pancreatitis +/- developing pancreatic infection, atelectasis, +/- PNA. Blood cultures, UA negative, encourage IS. Repeating imaging. (3) Atelectasis of both lungs: Status: Acute Assessment and plan: This is already clinically improving with IS. Repeating imaging Continue to encourage IS. (4) Alcohol abuse: Status: Chronic Assessment and plan: Latest CIWA scores have been zero. D/c CIWA. Continue MVI, thiamine. (5) Elevated blood pressure reading: Status: Chronic Assessment and plan: BP well controlled at this time. Was likely reflective of pain. (6) Acute kidney injury: Status: Resolved Assessment and plan: ? Prerenal vs ATN. Decrease IVF, monitoring Cr. Monitor I/O's. (7) Hyperglycemia: Status: Acute Assessment and plan: A1C 5.6. Agree that this could be insulin deficiency from his severe pancreatitis. Continue SSI. (8) Hyperkalemia: Status: Resolved Assessment and plan: Recheck in am. (9) Hypocalcemia: Status: Resolved Assessment and plan: Recheck in am. (10) Discharge planning issues: Status: Acute Assessment and plan: Full code Continues to require hospitalization with low threshold to transfer to ICU/[facility] (11) DVT prophylaxis: Status: Acute Assessment and plan: SC heparin Subjective Subjective Interval history since last seen: Mr Barba states that he is having virtually no epigastric pain today and that all of his pain is in his flanks and his back. He states that he has tried taking flexeril for his back pain before and that it helped. Denies dizziness, chest pain. Does not feel more short of breath today than he did yesterday. Denies n/v. + BM (x4 total, liquid). Notices swelling in his legs and his abdomen today as well as scrotal edema. Exam Narrative Exam Narrative: General: Very pleasant obese male, A&Ox3, looks better today HEENT: EOMI, MMM Heart: RRR, no m/r/g Lungs: quiet crackles in B bases Abdomen: distended, soft, not tender in epigastrium but laterally on either side in the lower abdomen, unchanged from yesterday Extremities: trace edema at B ankles, +1 B flank edema Objective Objective Clinical Data: Abnormal lab results 12/30/19 12/30/19 Range/Units 06:24 06:24 WBC 12.75 H (4.4-10.8) k/cumm RBC 3.69 L (4.50-6.00) m/cumm Hgb 12.0 L (13.5-17.5) g/dL Hct 36.0 L (40.0-50.0) % MCV 97.6 H (80-95) fL Absolute Neutrophils 9.56 H (1.2-6.7) k/cumm Absolute Lymphocytes 1.15 L (1.2-3.4) k/cumm Absolute Monocytes 1.79 H (0.11-0.7) k/cumm Glucose 132 H (74-106) mg/dL Calcium 7.5 L (8.5-10.1) mg/dL Conjugated Bilirubin 0.39 H (0.00-0.20) mg/dL AST 44 H (15-37) U/L Alkaline Phosphatase 152 H (46-116) U/L C-Reactive Protein 24.80 H (0.0-0.3) mg/dL Total Protein 5.1 L (6.4-8.2) g/dL Albumin 2.0 L (3.4-5.0) g/dL Vital Signs Temperature 37.4 C 12/30/19 15:35 Temperature Source Tympanic 12/30/19 15:35 Pulse 93 H 12/30/19 15:35 Pulse Rhythm Regular 12/30/19 10:00 Pulse 112 H 12/26/19 08:17 Respiratory Rate 15 12/30/19 15:35 Respiratory Effort Non-Labored 12/30/19 10:00 Respiratory Depth Shallow 12/30/19 10:00 Respiratory Pattern Normal 12/30/19 10:00 Blood Pressure 157/90 H 12/30/19 15:35 Blood Pressure Mean 106 12/26/19 08:17 Pulse Oximetry 98 12/30/19 15:35 Oxygen Delivery Method Room Air 12/30/19 15:35 Oxygen Flow Rate 0 12/30/19 15:35 Pain Level 3 12/30/19 14:16 Comment 12/29/19 06:00 Intake & Output 12/29/19 12/30/19 12/30/19 23:59 11:59 23:59 Intake Total 1500 / 2910 2176.666 / 4096.666 1920 / 4096.666 Output Total 419 / 1964 2200 / 2600 400 / 2600 Balance 1081 / 946 -23.334 / 1416.449 8666 / 1496.666 Intake: IV 1500 / 2910 2176.666 / 3286.666 1110 / 3286.666 Oral 810 / 810 Output: Urine 400 / 1930 2200 / 2600 400 / 2600 Post Void Residual Other: Urine Color Dark Elvia Yellow Straw Urine Appearance Clear Clear Clear Urine Odor None None None Comment Post void of 200 Stool Size Moderate Stool Characteristics Liquid Voiding Methods Urinal Urinal Urinal Laboratory Results WBC 12.75 k/cumm (4.4-10.8) H 12/30/19 06:24 RBC 3.69 m/cumm (4.50-6.00) L 12/30/19 06:24 Hgb 12.0 g/dL (13.5-17.5) L 12/30/19 06:24 Hct 36.0 % (40.0-50.0) L 12/30/19 06:24 MCV 97.6 fL (80-95) H 12/30/19 06:24 MCH 32.5 pg (27.0-33.0) 12/30/19 06:24 MCHC 33.3 g/dL (32.0-36.0) 12/30/19 06:24 RDW 13.7 % (11.8-14.1) 12/30/19 06:24 Plt Count x1000/uL (130-400) 12/30/19 06:24 MPV 10.7 fL (8.0-11.0) 12/30/19 06:24 Immature Gran % See Differential 12/30/19 06:24 Neutrophils % 70.0 12/30/19 06:24 Band Neutrophils % 5.0 % 12/30/19 06:24 Lymphocytes % 9.0 12/30/19 06:24 Monocytes % 14.0 12/30/19 06:24 Eosinophils % 1.0 12/30/19 06:24 Basophils % 0.0 12/30/19 06:24 Metamyelocytes % 1.0 % 12/30/19 06:24 Absolute Neutrophils 9.56 k/cumm (1.2-6.7) H 12/30/19 06:24 Absolute Lymphocytes 1.15 k/cumm (1.2-3.4) L 12/30/19 06:24 Absolute Monocytes 1.79 k/cumm (0.11-0.7) H 12/30/19 06:24 Absolute Eosinophils 0.13 k/cumm (0.0-0.7) 12/30/19 06:24 Absolute Basophils 0.00 k/cumm (0.0-0.2) 12/30/19 06:24 Differential Comment Manual differential 12/30/19 06:24 RBC Morphology Normal 12/30/19 06:24 VBG pH 7.33 (7.35-7.45) L 12/26/19 17:00 VBG pCO2 40 mm/Hg (34-47) 12/26/19 17:00 VBG pO2 37 mm/Hg (28-44) 12/26/19 17:00 VBG HCO3 Not Applicable 12/26/19 17:00 VBG Total CO2 Not Applicable 12/26/19 17:00 VBG O2 Saturation Not Applicable 12/26/19 17:00 VBG Base Excess Not Applicable 12/26/19 17:00 Sodium 138 mmol/L (136-145) 12/30/19 06:24 Potassium 3.7 mmol/L (3.5-5.1) 12/30/19 06:24 Chloride 103 mmol/L (98-107) 12/30/19 06:24 Carbon Dioxide 29.5 mmol/L (21.0-32.0) 12/30/19 06:24 Anion Gap 5.5 mmol/L (3-11) 12/30/19 06:24 BUN 10 mg/dL (7-18) D 12/30/19 06:24 Creatinine 0.91 mg/dL (0.70-1.30) 12/30/19 06:24 Estimated GFR/1.73 m2 >= 60.00 (mL/min/1.73m2) 12/30/19 06:24 Glucose 132 mg/dL (74-106) H 12/30/19 06:24 Calcium 7.5 mg/dL (8.5-10.1) L 12/30/19 06:24 Ionized Calcium 0.90 mmol/L (1.12-1.32) L 12/27/19 14:01 Magnesium 1.7 mg/dL (1.8-2.4) L 12/29/19 07:15 Total Bilirubin 0.8 mg/dL (0.2-1.0) 12/30/19 06:24 Conjugated Bilirubin 0.39 mg/dL (0.00-0.20) H 12/30/19 06:24 AST 44 U/L (15-37) H 12/30/19 06:24 ALT 25 U/L (16-63) 12/30/19 06:24 Alkaline Phosphatase 152 U/L (46-116) H 12/30/19 06:24 C-Reactive Protein 24.80 mg/dL (0.0-0.3) H 12/30/19 06:24 Total Protein 5.1 g/dL (6.4-8.2) L 12/30/19 06:24 Albumin 2.0 g/dL (3.4-5.0) L 12/30/19 06:24 Lipase 3090 U/L (73-393) H 12/26/19 05:58 Procalcitonin 1.1 ng/mL 12/28/19 06:55 Urine Color Yellow (Yellow) 12/29/19 13:50 Urine Clarity Clear (Clear) 12/29/19 13:50 Urine pH 6.0 (5-8) 12/29/19 13:50 Ur Specific [place] >= 1.030 (1.005-1.025) H 12/29/19 13:50 Urine Protein 100 mg/dL (Negative) H 12/29/19 13:50 Urine Ketones 80 mg/dL (Negative) H 12/29/19 13:50 Urine Blood Small (Negative) H 12/29/19 13:50 Urine Nitrite Negative (Negative) 12/29/19 13:50 Urine Bilirubin Small (Negative) H 12/29/19 13:50 Urine Urobilinogen 1.0 EU/dL (Up TO 0.2) H 12/29/19 13:50 Ur Leukocyte Esterase Negative (Negative) 12/29/19 13:50 Urine RBC 0-2 HPF (0-2) 12/29/19 13:50 Urine WBC 0-2 HPF (0-5) 12/29/19 13:50 Ur Epithelial Cells Negative HPF (Negative) 12/29/19 13:50 Urine Crystals Negative HPF (Negative) 12/29/19 13:50 Urine Bacteria Negative HPF (Negative) 12/29/19 13:50 Urine Casts Negative LPF (Negative) 12/29/19 13:50 Urine Mucus Negative (Negative) 12/29/19 13:50 Ur Culture Indicated? No 12/29/19 13:50 Ur Random Creatinine 512.65 mg/dL 12/27/19 11:43 Ur Random Sodium 3 mmol/L 12/27/19 11:43 Urine Glucose Negative mg/dL (Negative) 12/29/19 13:50 COVID-19 PCR Negative (Negative) 12/26/19 00:55 Nasopharyn COVID-19 PCR Not Applicable 12/26/19 00:55 Ref Test Perform Site [facility] 12/26/19 00:55
[2019-12-30] MEDS: Cyclobenzaprine 10 MG TAB PO ×2 (16:37→21:10)
[2019-12-30] MEDS: Lactated Ringers 1,000 ML 100 ML IV (16:44)
[2019-12-30] MEDS: Zolpidem 5 MG TAB PO (21:10)
[2019-12-31] VITALS (9 sets, daily range): BP systolic 126–177; BP diastolic 78–97; PULSE 61–109; RESP 16–20; TEMP 36.6–37.6; O2SAT 96–100
[2019-12-31] MEDS: HYDROmorphone 2 MG/ML VIAL IVP ×8 (00:12→22:11)
[2019-12-31] MEDS: Normal Saline Flush 10 ML SYR IVP ×4 (00:12→08:09)
[2019-12-31] MEDS: IMIPENEM/CILASTATIN 500 MG in Normal Saline 100 ML 200 MG IVPB ×4 (02:12→22:10)
[2019-12-31] MEDS: Lactated Ringers 1,000 ML 100 ML IV ×2 (02:45→13:37)
[2019-12-31 06:48] LABS: Abs Immature Grans 0.46 k/cumm (0.0-0.09); HCT 34.1 % (40.0-50.0); HGB 11.6 g/dL (13.5-17.5); Mean Corpuscular Hemoglobin 32.9 pg (27.0-33.0); Mean Corpuscular Volume 96.6 fL (80-95); Mean Platelet Volume 9.9 fL (8.0-11.0); Platelet Count 260 x1000/uL (130-400); RBC 3.53 m/cumm (4.50-6.00); RBC Distribution Width 13.5 % (11.8-14.1); White Blood Cell Count 11.77 k/cumm (4.4-10.8)
[2019-12-31 06:54] LABS: Anion Gap 8.5 mmol/L (3-11); BUN 8 mg/dL (7-18); CO2 28.5 mmol/L (21.0-32.0); CREATININE 0.94 mg/dL (0.70-1.30); Calcium 8.2 mg/dL (8.5-10.1); Chloride 103 mmol/L (98-107); Glucose 134 mg/dL (74-106); Magnesium 2.2 mg/dL (1.8-2.4); Potassium 3.1 mmol/L (3.5-5.1); Sodium 140 mmol/L (136-145)
[2019-12-31 06:56] LABS: C-Reactive Protein > 25.00 mg/dL (0.0-0.3)
[2019-12-31 06:58] LABS: ALT 28 U/L (16-63); AST 38 U/L (15-37); Albumin 1.9 g/dL (3.4-5.0); Alkaline Phosphatase 168 U/L (46-116); Bilirubin, Direct 0.38 mg/dL (0.00-0.20); Bilirubin, Total 0.7 mg/dL (0.2-1.0)
[2019-12-31 07:16] LABS: Procalcitonin 8.2 ng/mL
[2019-12-31 07:31] LABS: Absolute Lymphocyte Count 1.88 k/cumm (1.2-3.4); Absolute Neutrophil Count 8.71 k/cumm (1.2-6.7); Atypical Lymphocytes % 2
[2019-12-31 07:32] LABS: Absolute Monocyte Count 1.18 k/cumm (0.11-0.7); Anisocytosis 1+; Diff Comment Manual Differential; Polychromasia Present
[2019-12-31] MEDS: Heparin 5,000 UNITS/ML VIAL 5000 UNITS SC ×4 (08:08→23:50)
[2019-12-31] MEDS: Cyclobenzaprine 10 MG TAB PO ×3 (08:08→22:10)
[2019-12-31] MEDS: Thiamine 100 MG TAB PO (08:08)
[2019-12-31] MEDS: Multivitamin TAB 1 TAB PO (08:08)
--- NOTE | 2019-12-31 08:08 | PDOC.CMPRO ---
- If Service Date Differs Date of service: 12/31/19 Time of Service: 08:08 Care Management Progress Note S/O: Diogo remains acute there is a possibility of transfer to tertiary center today pending scan results and clinical presentation. CM to continue to provide support and assess for ongoing discharge needs. A: Diogo is a 49 year old man admitted on 12/26/19 with pancreatitis P: Diogo is being treated for necrotizing pancreatitis. CM reviewed CM will continue to support patient and to assess for discharge needs. Per prior care management the patient completed the financial application for assistance and [place]. CM contacted patient accounts to verify receipt and left a voicemail.
[2019-12-31] MEDS: Pantoprazole 40 MG VIAL IVP (08:09)
[2019-12-31] MEDS: Nicotine 21 MG/24 HR PATCH TD (08:09)
[2019-12-31] MEDS: Normal Saline - Diluent 50 ML VIAL IV (08:17)
[2019-12-31] MEDS: Omnipaque 350 MG/ML 100 ML BTL IJ (08:49)
--- NOTE | 2019-12-31 08:50 | DI.CT_ITS ---
EXAM: CT ABDOMEN PELVIS W CLINICAL HISTORY: f/u pancreatitis - IV contrast only TECHNIQUE: Imaging Protocol: Axial computed tomography images with coronal and sagittal reformatted images were created and reviewed CONTRAST MATERIAL: Intravenous: Omnipaque 350 Contrast volume:100 mL Oral: No COMPARISON: CT CT ABDOMEN PELVIS W from 12/25/[address] ABDOMEN PELVIS W from 12/26/2019 FINDINGS: ABDOMEN: Lung Bases: There has been an interval increase in size of the small bilateral pleural effusions. Ad ditionally, there has been interval increase in size of bilateral basilar infiltrates. These may rep resent atelectasis or pneumonia. Liver: Normal density. No measurable mass. Portal, Superior Mesenteric, and Splenic Veins: Unremarkable. Gallbladder and Biliary Tract: No radiodense calculus or dilation. Pancreas: There are again seen areas of decreased enhancement within the body and tail of the pancrea s which appears stable. Spleen: There again seen areas of decreased perfusion in the upper posterior spleen which appears sta ble. Adrenals: No masses seen. Kidneys: Normal size, contour and axis. No radiodense stones or obstructive uropathy. No masses seen. Abdominal Aorta: Abdominal portion non-dilated. Atherosclerosis. Bowel: No obstruction or bowel wall thickening. Appendix is unremarkable. Colonic diverticulosis but no evidence of acute diverticulitis. Peritoneal Cavity: Abdominal pelvic ascites is present. There has been slight decrease in the amount of ascites present. However, the peripancreatic fluid collections appear stable. Lymph Nodes: Within normal limits. Bones: Degenerative changes. Soft Tissues: Significant progression of the subcutaneous edema throughout the abdomen and pelvis. PELVIS: Bladder: Symmetric distention, no gross wall thickening. Reproductive Organs: Unremarkable as visualized. Lymph Nodes: Within normal limits. Bones: Degenerative changes present. IMPRESSION: 1. Significant progression of the subcutaneous edema within the ballard of the abdomen and pelvis since 12/26/2019. 2. Stable peripancreatic fluid collections and areas of pancreatic necrosis. 3. Slight interval decrease in size of the overall abdominal pelvic ascites. 4. Interval increase in size of the small bilateral pleural effusions and worsening of the bilateral basilar infiltrates. These infiltrates may represent atelectasis or pneumonia. RADIATION DOSE DELIVERED: 1,165.31mGy.cm Total DLP DATA REPOSITORY: All CT scans at this facility are submitted to the National Radiology Data Registry (NRDR) Dose Index Registry (DIR) with the [employer] (ACR). RADIATION OPTIMIZATION: All CT scans at this facility use at least one of these dose optimization te chniques: automated exposure control; mA and/or kV adjustment per patient size (includes targeted exa ms where dose is matched to clinical indication); or iterative reconstruction.
--- NOTE | 2019-12-31 08:56 | DI.RAD_ITS ---
EXAM: XR CHEST 1V IN DI DEPT CLINICAL HISTORY: crackles, concern for CHF TECHNIQUE: 2D digital imaging was performed. COMPARISON: CR,XR XR PORTABLE CHEST AP from 12/28/2019 FINDINGS: MEDIASTINUM: Normal. HEART: Normal. PULMONARY VASCULATURE: Normal. LUNGS: Small bilateral basilar infiltrates. PLEURAL SPACE: Blunting of the left costophrenic angle suggesting a small pleural effusion. No pneum othorax. BONE:Normal. OTHER FINDINGS:Normal. IMPRESSION: Small bilateral basilar infiltrates and small left pleural effusion. DATA REPOSITORY: RADIATION DOSE DELIVERED:
--- NOTE | 2019-12-31 10:16 | W.NUTRFU ---
Date of service: 12/31/19 Time of Service: 10:37 Nutritional Follow up NOTE: Diogo with acute necrotizing pancreatitis. Continues to be on clear liquid diet providing 500-700 kcal after 3 days of NPO. Lipase, CRP, Liver enzymes elevated. Consider TPN if unable to advance diet as has had > 5 days with inadequate nutrient intake putting pt at risk for malnutrition of acute illness and at risk for nutritional decline. If TPN initiated, recommend D10%/Amino Acids 4.25%- 2000 ml/ 83ml/hour. 20% lipids 250 ml qd (10.4 ml/hr) providing 1458 kcal, 82 g protein and 50 g fat. Standard electrolytes and trace elements, MVI. Time Spent in Nutritional Counseling and Treatment: 15
[2019-12-31] MEDS: ACETAMINOPHEN 1,000 MG/100 ML BTL 400 MG IVPB ×3 (10:18→18:32)
[2019-12-31] MEDS: POTASSIUM CHLORIDE 20 MEQ/100 ML BAG 50 MEQ IVPB ×2 (10:35→12:22)
[2019-12-31] MEDS: Insulin Aspart 300 UNITS/3 ML PEN SC ×3 (12:00→22:17)
[2019-12-31] MEDS: VANCOMYCIN 1,000 MG in Normal Saline 250 ML IVPB (12:21)
[2019-12-31 13:10] LABS: Lipase 167 U/L (73-393)
[2019-12-31] MEDS: Furosemide 20 MG/2 ML VIAL IVP (15:31)
--- NOTE | 2019-12-31 17:07 | W.PM.PROGNOT ---
Date of Service Date of service: 12/31/19 Time of Service: 17:07 Assessment and Plan Assessment and plan (1) Acute necrotizing pancreatitis: Status: Acute Assessment and plan: Clinically improving, but there is a persistent phlegmon on CT, might be infected. No benefit in aspiration, per radiology and surgery. No abscess or pseudocyst yet. Continue empiric primaxin (day 4). Decrease IVF and advance diet. (2) SIRS (systemic inflammatory response syndrome): Status: Acute Assessment and plan: Sources: pancreatitis +/- developing pancreatic infection, atelectasis, +/- PNA. I am still not convinced he has pneumonia, but the procalcitonin did rise from yesterday to today. Vancomycin added today. Continue primaxin. Encourage IS. (3) Atelectasis of both lungs: Status: Acute Assessment and plan: As above. (4) Alcohol abuse: Status: Chronic Assessment and plan: Latest CIWA scores have been zero. No longer at risk for withdrawal - CIWA d/c'ed. Continue MVI, thiamine. (5) Elevated blood pressure reading: Status: Chronic Assessment and plan: Decrease IVF. Add salt restriction. Control pain. (6) Acute kidney injury: Status: Resolved Assessment and plan: ? Prerenal vs ATN. Decrease IVF, monitoring Cr. Monitor I/O's. (7) Hyperglycemia: Status: Acute Assessment and plan: A1C 5.6. Add carb restriction to diet. Continue SSI. (8) Hyperkalemia: Status: Resolved Assessment and plan: Recheck in am. (9) Hypocalcemia: Status: Resolved Assessment and plan: Recheck in am. (10) Discharge planning issues: Status: Acute Assessment and plan: Full code Continues to require hospitalization with low threshold to transfer to ICU/tertiary care facility (11) DVT prophylaxis: Status: Acute Assessment and plan: SC heparin Subjective Subjective Interval history since last seen: Mr Barba states that he is not having shallow breathing today. He has had a soft BM today, no nausea. Abdominal pain is mostly in lower flanks B, worse when he is urinating. He has had urinary frequency feeling like he is not emptying his bladder. Denies dizziness, chest pain, cough. Per radiology, he has a phlegmon but not an abscess and nothing to drain. There are bigger consolidations at B lung bases now. Vancomycing was added. [facility] surgery consult indicated that there would not need to be a surgical intervention at this time and antibiotics are to be continued. Exam Narrative Exam Narrative: General: Very pleasant obese male, A&Ox3, looks better today HEENT: EOMI, MMM Heart: RRR, no m/r/g Lungs: quiet crackles in B bases Abdomen: distended, softer in epigastrium today than before, not tender in epigastrium but laterally on either side in the lower abdomen Extremities: trace edema at B ankles, +1 B flank edema Objective Objective Clinical Data: Abnormal lab results 12/31/19 12/31/19 12/31/19 Range/Units 06:17 06:17 06:17 WBC 11.77 H (4.4-10.8) k/cumm RBC 3.53 L (4.50-6.00) m/cumm Hgb 11.6 L (13.5-17.5) g/dL Hct 34.1 L (40.0-50.0) % MCV 96.6 H (80-95) fL Absolute Neutrophils 8.71 H (1.2-6.7) k/cumm Absolute Monocytes 1.18 H (0.11-0.7) k/cumm Potassium 3.1 L (3.5-5.1) mmol/L Glucose 134 H (74-106) mg/dL Calcium 8.2 L (8.5-10.1) mg/dL Conjugated Bilirubin 0.38 H (0.00-0.20) mg/dL AST 38 H (15-37) U/L Alkaline Phosphatase 168 H (46-116) U/L C-Reactive Protein > 25.00 H (0.0-0.3) mg/dL Total Protein 6.0 L (6.4-8.2) g/dL Albumin 1.9 L (3.4-5.0) g/dL Vital Signs Temperature 37.5 C 12/31/19 15:24 Temperature Source Tympanic 12/31/19 15:24 Pulse 61 12/31/19 15:24 Pulse Rhythm Regular 12/31/19 08:30 Pulse 112 H 12/26/19 08:17 Respiratory Rate 20 12/31/19 15:24 Respiratory Effort Non-Labored 12/31/19 08:30 Respiratory Depth Normal 12/31/19 08:30 Respiratory Pattern Normal 12/31/19 08:30 Blood Pressure 177/97 H 12/31/19 15:24 Blood Pressure Mean 106 12/26/19 08:17 Pulse Oximetry 98 12/31/19 15:24 Oxygen Delivery Method Room Air 12/31/19 15:24 Oxygen Flow Rate 0 12/31/19 15:24 Pain Level 8 12/31/19 16:18 Comment 12/29/19 06:00 Intake & Output 12/30/19 12/31/19 12/31/19 23:59 11:59 23:59 Intake Total 2120 / 4296.666 2010 / 3719.167 1709.167 / 3719.167 Output Total 1650 / 3850 1999 / 4700 2700 / 4700 Balance 470 / 446.666 10 / -980.833 -990.833 / -980.833 Intake: IV 1310 / 3486.666 1200 / 2289.167 1089.167 / 2289.167 Oral 810 / 810 810 / 1430 620 / 1430 Output: Urine 1650 / 3850 1999 / 4700 2700 / 4700 Other: Urine Color Yellow Yellow Yellow Urine Appearance Clear Clear Clear Urine Odor None None None Stool Size Small Stool Characteristics Brown Voiding Methods Urinal Urinal Urinal Laboratory Results WBC 11.77 k/cumm (4.4-10.8) H 12/31/19 06:17 RBC 3.53 m/cumm (4.50-6.00) L 12/31/19 06:17 Hgb 11.6 g/dL (13.5-17.5) L 12/31/19 06:17 Hct 34.1 % (40.0-50.0) L 12/31/19 06:17 MCV 96.6 fL (80-95) H 12/31/19 06:17 MCH 32.9 pg (27.0-33.0) 12/31/19 06:17 MCHC 34.0 g/dL (32.0-36.0) 12/31/19 06:17 RDW 13.5 % (11.8-14.1) 12/31/19 06:17 Plt Count 260 x1000/uL (130-400) 12/31/19 06:17 MPV 9.9 fL (8.0-11.0) 12/31/19 06:17 Immature Gran % See Differential 12/31/19 06:17 Neutrophils % 73.0 12/31/19 06:17 Band Neutrophils % 1.0 % 12/31/19 06:17 Lymphocytes % 14.0 12/31/19 06:17 Atypical Lymphs % 2 12/31/19 06:17 Monocytes % 10.0 12/31/19 06:17 Eosinophils % 0.0 12/31/19 06:17 Basophils % 0.0 12/31/19 06:17 Metamyelocytes % 1.0 % 12/30/19 06:24 Absolute Neutrophils 8.71 k/cumm (1.2-6.7) H 12/31/19 06:17 Absolute Lymphocytes 1.88 k/cumm (1.2-3.4) 12/31/19 06:17 Absolute Monocytes 1.18 k/cumm (0.11-0.7) H 12/31/19 06:17 Absolute Eosinophils 0.00 k/cumm (0.0-0.7) 12/31/19 06:17 Absolute Basophils 0.00 k/cumm (0.0-0.2) 12/31/19 06:17 Differential Comment Manual differential 12/31/19 06:17 RBC Morphology See below 12/31/19 06:17 Polychromasia Present 12/31/19 06:17 Anisocytosis 1+ 12/31/19 06:17 VBG pH 7.33 (7.35-7.45) L 12/26/19 17:00 VBG pCO2 40 mm/Hg (34-47) 12/26/19 17:00 VBG pO2 37 mm/Hg (28-44) 12/26/19 17:00 VBG HCO3 Not Applicable 12/26/19 17:00 VBG Total CO2 Not Applicable 12/26/19 17:00 VBG O2 Saturation Not Applicable 12/26/19 17:00 VBG Base Excess Not Applicable 12/26/19 17:00 Sodium 140 mmol/L (136-145) 12/31/19 06:17 Potassium 3.1 mmol/L (3.5-5.1) L 12/31/19 06:17 Chloride 103 mmol/L (98-107) 12/31/19 06:17 Carbon Dioxide 28.5 mmol/L (21.0-32.0) 12/31/19 06:17 Anion Gap 8.5 mmol/L (3-11) 12/31/19 06:17 BUN 8 mg/dL (7-18) 12/31/19 06:17 Creatinine 0.94 mg/dL (0.70-1.30) 12/31/19 06:17 Estimated GFR/1.73 m2 >= 60.00 (mL/min/1.73m2) 12/31/19 06:17 Glucose 134 mg/dL (74-106) H 12/31/19 06:17 Calcium 8.2 mg/dL (8.5-10.1) L 12/31/19 06:17 Ionized Calcium 0.90 mmol/L (1.12-1.32) L 12/27/19 14:01 Magnesium 2.2 mg/dL (1.8-2.4) 12/31/19 06:17 Total Bilirubin 0.7 mg/dL (0.2-1.0) 12/31/19 06:17 Conjugated Bilirubin 0.38 mg/dL (0.00-0.20) H 12/31/19 06:17 AST 38 U/L (15-37) H 12/31/19 06:17 ALT 28 U/L (16-63) 12/31/19 06:17 Alkaline Phosphatase 168 U/L (46-116) H 12/31/19 06:17 C-Reactive Protein > 25.00 mg/dL (0.0-0.3) H 12/31/19 06:17 Total Protein 6.0 g/dL (6.4-8.2) L 12/31/19 06:17 Albumin 1.9 g/dL (3.4-5.0) L 12/31/19 06:17 Lipase 167 U/L (73-393) 12/31/19 06:17 Procalcitonin 8.2 ng/mL 12/31/19 06:10 Urine Color Yellow (Yellow) 12/29/19 13:50 Urine Clarity Clear (Clear) 12/29/19 13:50 Urine pH 6.0 (5-8) 12/29/19 13:50 Ur Specific [place] >= 1.030 (1.005-1.025) H 12/29/19 13:50 Urine Protein 100 mg/dL (Negative) H 12/29/19 13:50 Urine Ketones 80 mg/dL (Negative) H 12/29/19 13:50 Urine Blood Small (Negative) H 12/29/19 13:50 Urine Nitrite Negative (Negative) 12/29/19 13:50 Urine Bilirubin Small (Negative) H 12/29/19 13:50 Urine Urobilinogen 1.0 EU/dL (Up TO 0.2) H 12/29/19 13:50 Ur Leukocyte Esterase Negative (Negative) 12/29/19 13:50 Urine RBC 0-2 HPF (0-2) 12/29/19 13:50 Urine WBC 0-2 HPF (0-5) 12/29/19 13:50 Ur Epithelial Cells Negative HPF (Negative) 12/29/19 13:50 Urine Crystals Negative HPF (Negative) 12/29/19 13:50 Urine Bacteria Negative HPF (Negative) 12/29/19 13:50 Urine Casts Negative LPF (Negative) 12/29/19 13:50 Urine Mucus Negative (Negative) 12/29/19 13:50 Ur Culture Indicated? No 12/29/19 13:50 Ur Random Creatinine 512.65 mg/dL 12/27/19 11:43 Ur Random Sodium 3 mmol/L 12/27/19 11:43 Urine Glucose Negative mg/dL (Negative) 12/29/19 13:50 COVID-19 PCR Negative (Negative) 12/26/19 00:55 Nasopharyn COVID-19 PCR Not Applicable 12/26/19 00:55 Ref Test Perform Site [facility] lab 12/26/19 00:55 CXR; Small bilateral basilar infiltrates and small left pleural effusion. CT abdomen/pelvis:1. Significant progression of the subcutaneous edema within the ballard of the abdomen and pelvis since 12/26/2019. 2. Stable peripancreatic fluid collections and areas of pancreatic necrosis. 3. Slight interval decrease in size of the overall abdominal pelvic ascites. 4. Interval increase in size of the small bilateral pleural effusions and worsening of the bilateral basilar infiltrates. These infiltrates may represent atelectasis or pneumonia.
[2019-12-31] MEDS: Zolpidem 5 MG TAB PO (22:10)
[2020-01-01] MEDS: HYDROmorphone 2 MG/ML VIAL IVP ×7 (00:20→18:13)
[2020-01-01] MEDS: ACETAMINOPHEN 1,000 MG/100 ML BTL 400 MG IVPB ×3 (02:01→18:14)
[2020-01-01 03:38] VITALS: BP 150/91; PULSE 98; RESP 17; TEMP 36.9; O2SAT 98
[2020-01-01] MEDS: IMIPENEM/CILASTATIN 500 MG in Normal Saline 100 ML 200 MG IVPB ×4 (03:38→21:56)
[2020-01-01] MEDS: Normal Saline Flush 10 ML SYR IVP ×4 (05:46→15:35)
[2020-01-01 06:59] LABS: HCT 35.3 % (40.0-50.0); Mean Corpuscular Hemoglobin 32.7 pg (27.0-33.0); Mean Corpuscular Volume 96.2 fL (80-95); Platelet Count 339 x1000/uL (130-400); RBC 3.67 m/cumm (4.50-6.00); RBC Distribution Width 13.6 % (11.8-14.1)
[2020-01-01 07:16] LABS: ALT 31 U/L (16-63); AST 38 U/L (15-37); Albumin 1.9 g/dL (3.4-5.0); Alkaline Phosphatase 229 U/L (46-116); Anion Gap 7.9 mmol/L (3-11); BUN 7 mg/dL (7-18); Bilirubin, Direct 0.27 mg/dL (0.00-0.20); Bilirubin, Total 0.6 mg/dL (0.2-1.0); CO2 30.1 mmol/L (21.0-32.0); CREATININE 1.09 mg/dL (0.70-1.30); Calcium 8.5 mg/dL (8.5-10.1); Chloride 101 mmol/L (98-107); Glucose 148 mg/dL (74-106); Potassium 3.4 mmol/L (3.5-5.1); Sodium 139 mmol/L (136-145); Total Protein 6.1 g/dL (6.4-8.2)
[2020-01-01 07:20] LABS: C-Reactive Protein > 25.00 mg/dL (0.0-0.3)
[2020-01-01 07:33] LABS: Absolute Lymphocyte Count 1.81 k/cumm (1.2-3.4); Absolute Monocyte Count 2.17 k/cumm (0.11-0.7); Absolute Neutrophil Count 14.12 k/cumm (1.2-6.7)
[2020-01-01 07:34] LABS: Anisocytosis 1+; Diff Comment Manual Differential
[2020-01-01 07:49] VITALS: BP 151/87; PULSE 112; RESP 17; TEMP 36.8; O2SAT 99
[2020-01-01] MEDS: Pantoprazole 40 MG VIAL IVP (08:11)
[2020-01-01] MEDS: Heparin 5,000 UNITS/ML VIAL 5000 UNITS SC ×2 (08:12→15:30)
[2020-01-01] MEDS: Nicotine 21 MG/24 HR PATCH TD (08:12)
[2020-01-01] MEDS: Thiamine 100 MG TAB PO (08:12)
[2020-01-01] MEDS: Cyclobenzaprine 10 MG TAB PO ×2 (08:12→22:04)
[2020-01-01] MEDS: Multivitamin TAB 1 TAB PO (08:12)
[2020-01-01] MEDS: POTASSIUM CHLORIDE 20 MEQ/100 ML BAG 50 MEQ IVPB ×2 (08:45→11:10)
--- NOTE | 2020-01-01 10:01 | PDOC.CMPRO ---
- If Service Date Differs Date of service: 01/01/20 Time of Service: 10:01 Care Management Progress Note S/O: Diogo was sitting up in bed when CM met with him. He admitted to being a bit discouraged. He continues to have pain in his back and is now experiencing edema of his lower abdomen, back and genital area. He shared that he had been eating solid food but was suddenly returned to a clear liquid diet and did not understand why. CM explained that his WBC had increased and the provider was concerned that the increase in his diet might be exacerbating the pancreatitis. He is scheduled to have a surgical consult today which he hopes will provide some answers. KELLI was able to confirm that Diogo does have active insurance with [employer]. The insurance company was contacted and informed Access staff that the insurance is through his 's policy. Diogo was unaware of this fact as he and his have been for 6 years and rarely communicate. A: Diogo is a 49 year old man admitted on 12/26/19 with pancreatitis P: Diogo is being treated for necrotizing pancreatitis. CM will continue to support patient and to assess for discharge needs. KELLI has confirmed that Diogo is insured with [employer] through his , so [employer] will not be necessary. He will likely be discharged home with no services when medically ready.
[2020-01-01 10:31] LABS: Bilirubin Negative (Negative); Blood Negative (Negative); Clarity Clear (Clear); Glucose 250 mg/dL (Negative); Ketones 15 mg/dL (Negative); Leukocyte Esterase Negative (Negative); Nitrite Negative (Negative); Urobilinogen 0.2 EU/dL (Up TO 0.2); pH 7.5 (5-8)
[2020-01-01 10:39] LABS: Bacteria Rare HPF (Negative); Crystals Negative HPF (Negative); Epithelial Cells Rare HPF (Negative); Mucus Trace (Negative); RBC 0-2 HPF (0-2); WBC 0-2 HPF (0-5)
[2020-01-01 10:40] LABS: C & S Indicated? No; Casts Negative LPF (Negative)
[2020-01-01 11:20] VITALS: BP 156/91; PULSE 103; RESP 17; TEMP 37.1; O2SAT 99
[2020-01-01] MEDS: Insulin Aspart 300 UNITS/3 ML PEN SC ×3 (11:47→21:55)
--- NOTE | 2020-01-01 13:34 | SCONE_ITS ---
Date of service: 01/01/20 Time of Service: 13:34 Assessment and Plan Assessment and plan (1) Acute necrotizing pancreatitis: Status: Acute (2) Irritable bowel syndrome: Status: Chronic (3) Alcohol abuse: Status: Chronic (4) Pancreatitis: Status: Acute (5) Tobacco dependence: Status: Acute (6) Atelectasis of both lungs: Status: Acute Assessment and plan: pulmonary toilet walk stop smoking consider neubs chest xray actually looks quite good (7) Elevated white blood cell count, unspecified: Status: Acute Assessment and plan: unsure of etiology. on primaxin and vanco for poss pneumonia and pancreatic infections/abscess I reviewed the CT. necrosis appears sterile at this point. I would not recommend debridment. clinically pt is doing quite well and does not appear septic He does have some diarrhea. He has only been on clears. He is on x2 abx. Continue to monitor for C. diff. added priobiotics. Lungs- minimal atelectasis. and effusion- nothing to tap. it actually looks surprisingly clear. UA- repeat today was neg. wound- no breakdown. He does have a surprisingly lg amount of torso/flank edema. no signs of breakdown or cellulitis. LE- no calf pain. US dopplers are pd at this time. He certainly could have a DVT. although- clnically, he does not appear to have one. He is on heparin and has been walking. Clinically I do not see a source of infection. Cont abx at this time and will follow closely for any developing abcesses and change in clincal condition. clinically pt is hungry adn wants to eat. I would allow and follow closely. M onitor blood sugers. May very well require exocrine supplementation. Also add in pro-btiocs. Once he can tolerate diet- I would addin protein supplements. Most of them are diary based- so I would hold on those currently. Pt still has a very long way to go to healing. He certainly cannot drink alcohol any further, we did discuss this today and he understands and at this point- is committed to sobriety. He understands that this is going to be a long process it may take anywhere from 6 weeks to 6 months. And will probably a year or 2 before he is completely healed. He has risks still for pneumonia, DVT, infections and abscesses. Worsening of the pancreatitis. He is at high risk for pseudocyst formation and for developing chronic pancreatitis and chronic pain. He may require insulin supplementation and exocrine supplementation as well. We did discuss dietary do's and don'ts today. And the importance of nutrition and exercise. pt states he is committed to his sobriety. He will defn need support in this area. He says his spouse is very supportive and committed to his lifestye change. History of Present Illness Narrative: pt seen and examined. We d/w his current situation adn longer turn prognosis. His pancreatitis stems from chronic ETOH use. We d/w that he cannot use alcohol at ALL. He has severe necrotizing pancreatitis. I did review al his labs and recent CT. It is concerning that he has developed a WBC 18 despite being on abx. He is not running a temp. UA has been sent. He has some atelectasis in the lung basis- but nothing severe. Pt is not coughing anything up. He has been good about doing IS and has been up and walking. He ate a soft dinner last pm. He notes he has a smaller apetite. He also has loosers stools. But no severe diarrhea and no bleeding. He does have abdom pain- adn L flnk/back pain. But not peritonitis. He does ahve signif flank edema. He has been up walking. He does want to eat. He has no N/V. He denies urinary frequency or burning. His IV site is c/d/i. He has no decubs. HE has b/l LE edema, but no signif calf pain or swelling. We d/w dietary habits-I encourage him to stay on low fat/low Na diet. He should make his calories count and eat nutritious foods. Protein supplements are often diary based- so we won't do these currently. 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 Possibility of d/v an abscess or pseudocyst. We will continue to follow him closely for this. We also d/w recovery adn possible set back. Also talked about chronic pancreatitis and chronic pain. Consults Consult date: 01/01/20 Requesting physician: Surekha Brar Review of Systems No All systems reviewed & are unremarkable except as noted in HPI and below [facility]LY [facility] Medical History Alcohol abuse (Chronic) Irritable bowel syndrome (Chronic) Pancreatitis (Acute) Surgical History Arthroplasty of knee Social History Smoking/Tobacco Use Status: Current every day Tobacco Type: cigarettes Drug use: Occasionally Substance use type: marijuana Do you feel safe at home: Yes Do you feel safe in your relationship?: Yes Exam Const General: cooperative, healthy appearing, comfortable, no acute distress, well developed and well groomed Nutritional Appearance: average body habitus and well nourished Orientation: alert, awake and oriented x3 HENMT Head: normal to inspection, normocephalic and atraumatic Ears: hearing grossly normal bilaterally and external ears normal General nose exam: external nose normal Face and sinus: normal facial exam and sinuses nontender Mouth: oral mucosae normal, lip normal, tongue normal and moist mucous membranes Teeth and gingiva: dentition normal Eyes General: appearance normal, both eyes and all related structures Conjunctivae: conjunctivae normal Sclera: sclerae normal Pupils: PERRL Neck Neck: normal visual inspection and full ROM Chest Chest: normal inspection of the chest Resp Effort & Inspection: normal respiratory effort, able to speak in complete s entences, no cough, no nasal flaring, not tachypneic and no use of accessory muscles Auscultation: clear to auscultation bilaterally, no rales, no rhonchi and no wheezes Cardio Jugular venous pressure: no JVD Rate: regular rate Rhythm: regular rhythm GI Inspection: normal to inspection, edema and distended Palpation: soft, no masses, tender (left flank- mild ) and No ascites Auscultation: normal bowel sounds Other: significant flank edema and pelvic edema minimal tenderness Skin General skin exam: no rashes or lesions noted Trauma: no lacerations or abrasions Neuro General: patient alert, patient oriented x3, oriented, gait normal, moves all extremities, no focal motor deficits and CN's II-XI intact bilaterally Cognition: normal cognition Speech: speech normal Gait: normal gait Motor: muscle tone normal throughout Extrem General: normal to inspection, full ROM, no clubbing, cyanosis or edema, calf tenderness and pedal edema Other: no decubs Psych Appearance: grossly normal and well kempt Mental Status: mental status grossly normal Speech and Movement: speech and movement normal Affect: normal affect Results Last Vital Signs Temp 37.1 C 01/01/20 11:20 Pulse 103 H 01/01/20 11:20 Resp 17 01/01/20 11:20 BP 156/91 H 01/01/20 11:20 Pulse Ox 99 01/01/20 11:20 Labs Result diagrams: 01/01/20 06:25 01/01/20 06:25 Labs: Laboratory Results - last 24 hr 01/01/20 01/01/20 01/01/20 06:25 06:25 10:16 WBC 18.10 H D RBC 3.67 L Hgb 12.0 L Hct 35.3 L MCV 96.2 H MCH 32.7 MCHC 34.0 RDW 13.6 Plt Count 339 MPV 10.0 Immature Gran % 0.0 Neutrophils % 58.0 Band Neutrophils % 20.0 Lymphocytes % 10.0 Monocytes % 12.0 Eosinophils % 0.0 Basophils % 0.0 Absolute Neutrophils 14.12 H Absolute Lymphocytes 1.81 Absolute Monocytes 2.17 H Absolute Eosinophils 0.00 Absolute Basophils 0.00 Differential Comment Manual differential RBC Morphology See below Anisocytosis 1+ Sodium 139 Potassium 3.4 L Chloride 101 Carbon Dioxide 30.1 Anion Gap 7.9 BUN 7 Creatinine 1.09 Estimated GFR/1.73 m2 >= 60.00 Glucose 148 H Calcium 8.5 Magnesium 2.0 Total Bilirubin 0.6 Conjugated Bilirubin 0.27 H AST 38 H ALT 31 Alkaline Phosphatase 229 H C-Reactive Protein > 25.00 H Total Protein 6.1 L Albumin 1.9 L Urine Color Yellow Urine Clarity Clear Urine pH 7.5 Ur Specific [place] 1.020 Urine Protein Trace H Urine Ketones 15 H Urine Blood Negative Urine Nitrite Negative Urine Bilirubin Negative Urine Urobilinogen 0.2 Ur Leukocyte Esterase Negative Urine RBC 0-2 Urine WBC 0-2 Ur Epithelial Cells Rare Urine Crystals Negative Urine Bacteria Rare Urine Casts Negative Urine Mucus Trace Ur Culture Indicated? No Urine Glucose 250 H
[2020-01-01 16:12] LABS: Vancomycin, Trough 10.2 ug/mL (10.0-20.0)
[2020-01-01] MEDS: Furosemide 20 MG TAB PO (16:14)
--- NOTE | 2020-01-01 16:21 | PGE_ITS ---
Date of Service Date of service: 01/01/20 Time of Service: 16:22 Assessment and Plan Assessment and plan (1) Acute necrotizing pancreatitis: Status: Acute Assessment and plan: With possibly infected peripancreatic phlegmon. Clinically improving, but WBC is worse. Evaluated by general surgery - no surgical intervention is recommended at this time, and it is felt that it was not advancement of diet that resulted in worsening of leucocytosis. Continue empiric primaxin (day 5). D/c IVF - discussed with general surgery who feel at this point IVF is doing more harm than good. Continue regular diet. (2) SIRS (systemic inflammatory response syndrome): Status: Acute Assessment and plan: Sources: pancreatitis +/- developing pancreatic infection, atelectasis, +/- PNA. I am not convinced he has pneumonia Continue vancomycin (day 2), Continue primaxin (day 5). Encourage IS. Consider ID consult if WBC is worsening. Obtain venous doppler of BLE's to r/o DVT. (3) Atelectasis of both lungs: Status: Acute Assessment and plan: As above. (4) Alcohol abuse: Status: Chronic Assessment and plan: Latest CIWA scores have been zero. No longer at risk for withdrawal - CIWA d/c'ed. Continue MVI, thiamine. (5) Elevated blood pressure reading: Status: Chronic Assessment and plan: D/c IVF. Pain control Continue salt restriction. Control pain. (6) Acute kidney injury: Status: Resolved Assessment and plan: ? Prerenal vs ATN. Decrease IVF, monitoring Cr. Monitor I/O's. (7) Hyperglycemia: Status: Acute Assessment and plan: A1C 5.6. Continue carb restriction. Continue SSI. (8) Hyperkalemia: Status: Resolved Assessment and plan: Recheck in am. (9) Hypocalcemia: Status: Resolved Assessment and plan: Recheck in am. (10) Discharge planning issues: Status: Acute Assessment and plan: Full code Continues to require hospitalization with low threshold to transfer to ICU/tertiary care facility (11) DVT prophylaxis: Status: Acute Assessment and plan: SC heparin Subjective Subjective Interval history since last seen: Denies dizziness, chest pain, shortness of breath, nausea. Abdominal pain is predominantly felt in BLQ (mostly on L). Reports worsening swelling in the legs, scrotum. Tolerating regular low fat diet. Evaluated by surgery - not felt to require surgical intervention. Exam Narrative Exam Narrative: General: Very pleasant obese male, A&Ox3, does look much better today than when we first met or even yesterday HEENT: EOMI, MMM Heart: RRR, no m/r/g Lungs: CTAB with much better aeration. Abdomen: distended, soft, tender in LLQ predominantly Extremities: +1 BLE edema, worse today Objective Objective Clinical Data: Abnormal lab results 01/01/20 01/01/20 01/01/20 Range/Units 06:25 06:25 10:16 WBC 18.10 H D (4.4-10.8) k/cumm RBC 3.67 L (4.50-6.00) m/cumm Hgb 12.0 L (13.5-17.5) g/dL Hct 35.3 L (40.0-50.0) % MCV 96.2 H (80-95) fL Absolute Neutrophils 14.12 H (1.2-6.7) k/cumm Absolute Monocytes 2.17 H (0.11-0.7) k/cumm Potassium 3.4 L (3.5-5.1) mmol/L Glucose 148 H (74-106) mg/dL Conjugated Bilirubin 0.27 H (0.00-0.20) mg/dL AST 38 H (15-37) U/L Alkaline Phosphatase 229 H (46-116) U/L C-Reactive Protein > 25.00 H (0.0-0.3) mg/dL Total Protein 6.1 L (6.4-8.2) g/dL Albumin 1.9 L (3.4-5.0) g/dL Urine Protein Trace H (Negative) mg/dL Urine Ketones 15 H (Negative) mg/dL Urine Glucose 250 H (Negative) mg/dL Vital Signs Temperature 37.1 C 01/01/20 11:20 Temperature Source Tympanic 01/01/20 11:20 Pulse 103 H 01/01/20 11:20 Pulse Rhythm Regular 01/01/20 08:10 Pulse 112 H 12/26/19 08:17 Respiratory Rate 17 01/01/20 11:20 Respiratory Effort Non-Labored 01/01/20 08:10 Respiratory Depth Normal 01/01/20 08:10 Respiratory Pattern Normal 01/01/20 08:10 Blood Pressure 156/91 H 01/01/20 11:20 Blood Pressure Mean 106 12/26/19 08:17 Pulse Oximetry 99 01/01/20 11:20 Oxygen Delivery Method Room Air 01/01/20 11:20 Oxygen Flow Rate 0 01/01/20 11:20 Pain Level 7 01/01/20 14:06 Comment 12/29/19 06:00 Intake & Output 12/31/19 01/01/20 01/01/20 23:59 11:59 23:59 Intake Total 3214.167 / 5324.167 1005 / 1005 Output Total 3925 / 5925 1700 / 2100 400 / 2100 Balance -710.833 / -600.833 -695 / -1095 -400 / -1095 Intake: IV 2594.167 / 3894.167 795 / 795 Oral 620 / 1430 210 / 210 Output: Urine 3925 / 5925 1700 / 2100 400 / 2100 Other: Urine Color Yellow Yellow Yellow Urine Appearance Clear Clear Clear Urine Odor Normal None Normal Stool Size Moderate Stool Characteristics Soft Formed Brown Voiding Methods Urinal Urinal Urinal Laboratory Results WBC 18.10 k/cumm (4.4-10.8) H D 01/01/20 06:25 RBC 3.67 m/cumm (4.50-6.00) L 01/01/20 06:25 Hgb 12.0 g/dL (13.5-17.5) L 01/01/20 06:25 Hct 35.3 % (40.0-50.0) L 01/01/20 06:25 MCV 96.2 fL (80-95) H 01/01/20 06:25 MCH 32.7 pg (27.0-33.0) 01/01/20 06:25 MCHC 34.0 g/dL (32.0-36.0) 01/01/20 06:25 RDW 13.6 % (11.8-14.1) 01/01/20 06:25 Plt Count 339 x1000/uL (130-400) 01/01/20 06:25 MPV 10.0 fL (8.0-11.0) 01/01/20 06:25 Immature Gran % 0.0 % 01/01/20 06:25 Neutrophils % 58.0 06/10/20 06:25 Band Neutrophils % 20.0 % 01/01/20 06:25 Lymphocytes % 10.0 01/01/20 06:25 Atypical Lymphs % 2 12/31/19 06:17 Monocytes % 12.0 01/01/20 06:25 Eosinophils % 0.0 01/01/20 06:25 Basophils % 0.0 01/01/20 06:25 Metamyelocytes % 1.0 % 12/30/19 06:24 Absolute Neutrophils 14.12 k/cumm (1.2-6.7) H 01/01/20 06:25 Absolute Lymphocytes 1.81 k/cumm (1.2-3.4) 01/01/20 06:25 Absolute Monocytes 2.17 k/cumm (0.11-0.7) H 01/01/20 06:25 Absolute Eosinophils 0.00 k/cumm (0.0-0.7) 01/01/20 06:25 Absolute Basophils 0.00 k/cumm (0.0-0.2) 01/01/20 06:25 Differential Comment Manual differential 01/01/20 06:25 RBC Morphology See below 01/01/20 06:25 Polychromasia Present 12/31/19 06:17 Anisocytosis 1+ 01/01/20 06:25 VBG pH 7.33 (7.35-7.45) L 12/26/19 17:00 VBG pCO2 40 mm/Hg (34-47) 12/26/19 17:00 VBG pO2 37 mm/Hg (28-44) 12/26/19 17:00 VBG HCO3 Not Applicable 12/26/19 17:00 VBG Total CO2 Not Applicable 12/26/19 17:00 VBG O2 Saturation Not Applicable 12/26/19 17:00 VBG Base Excess Not Applicable 12/26/19 17:00 Sodium 139 mmol/L (136-145) 01/01/20 06:25 Potassium 3.4 mmol/L (3.5-5.1) L 01/01/20 06:25 Chloride 101 mmol/L (98-107) 01/01/20 06:25 Carbon Dioxide 30.1 mmol/L (21.0-32.0) 01/01/20 06:25 Anion Gap 7.9 mmol/L (3-11) 01/01/20 06:25 BUN 7 mg/dL (7-18) 01/01/20 06:25 Creatinine 1.09 mg/dL (0.70-1.30) 01/01/20 06:25 Estimated GFR/1.73 m2 >= 60.00 (mL/min/1.73m2) 01/01/20 06:25 Glucose 148 mg/dL (74-106) H 01/01/20 06:25 Calcium 8.5 mg/dL (8.5-10.1) 01/01/20 06:25 Ionized Calcium 0.90 mmol/L (1.12-1.32) L 12/27/19 14:01 Magnesium 2.0 mg/dL (1.8-2.4) 01/01/20 06:25 Total Bilirubin 0.6 mg/dL (0.2-1.0) 01/01/20 06:25 Conjugated Bilirubin 0.27 mg/dL (0.00-0.20) H 01/01/20 06:25 AST 38 U/L (15-37) H 01/01/20 06:25 ALT 31 U/L (16-63) 01/01/20 06:25 Alkaline Phosphatase 229 U/L (46-116) H 01/01/20 06:25 C-Reactive Protein > 25.00 mg/dL (0.0-0.3) H 01/01/20 06:25 Total Protein 6.1 g/dL (6.4-8.2) L 01/01/20 06:25 Albumin 1.9 g/dL (3.4-5.0) L 01/01/20 06:25 Lipase 167 U/L (73-393) 12/31/19 06:17 Procalcitonin 8.2 ng/mL 12/31/19 06:10 Urine Color Yellow (Yellow) 01/01/20 10:16 Urine Clarity Clear (Clear) 01/01/20 10:16 Urine pH 7.5 (5-8) 01/01/20 10:16 Ur Specific [place] 1.020 (1.005-1.025) 01/01/20 10:16 Urine Protein Trace mg/dL (Negative) H 01/01/20 10:16 Urine Ketones 15 mg/dL (Negative) H 01/01/20 10:16 Urine Blood Negative (Negative) 01/01/20 10:16 Urine Nitrite Negative (Negative) 01/01/20 10:16 Urine Bilirubin Negative (Negative) 01/01/20 10:16 Urine Urobilinogen 0.2 EU/dL (Up TO 0.2) 01/01/20 10:16 Ur Leukocyte Esterase Negative (Negative) 01/01/20 10:16 Urine RBC 0-2 HPF (0-2) 01/01/20 10:16 Urine WBC 0-2 HPF (0-5) 01/01/20 10:16 Ur Epithelial Cells Rare HPF (Negative) 01/01/20 10:16 Urine Crystals Negative HPF (Negative) 01/01/20 10:16 Urine Bacteria Rare HPF (Negative) 01/01/20 10:16 Urine Casts Negative LPF (Negative) 01/01/20 10:16 Urine Mucus Trace (Negative) 01/01/20 10:16 Ur Culture Indicated? No 01/01/20 10:16 Ur Random Creatinine 512.65 mg/dL 12/27/19 11:43 Ur Random Sodium 3 mmol/L 12/27/19 11:43 Urine Glucose 250 mg/dL (Negative) H 01/01/20 10:16 Vancomycin Trough 10.2 ug/mL (10.0-20.0) 01/01/20 15:40 COVID-19 PCR Negative (Negative) 12/26/19 00:55 Nasopharyn COVID-19 PCR Not Applicable 12/26/19 00:55 Ref Test [facility] 12/26/19 00:55
[2020-01-01 16:25] VITALS: BP 157/96; PULSE 99; RESP 17; TEMP 37; O2SAT 98
[2020-01-01] MEDS: Lidocaine 5% Patch 2 PATCH TP (17:39)
[2020-01-01 19:16] VITALS: BP 144/79; PULSE 107; RESP 19; TEMP 37.9; O2SAT 95
[2020-01-01] MEDS: Lactobacillus Acidophilus CAP 1 CAP PO (20:12)
[2020-01-01] MEDS: Zolpidem 5 MG TAB PO (21:54)
[2020-01-01 23:27] VITALS: BP 152/89; PULSE 90; RESP 19; TEMP 37.4; O2SAT 99
--- NOTE | 2020-01-02 | DI.US_ITS ---
EXAM: US EXTREMITY VENOUS BI CLINICAL HISTORY: edema of BLE's. TECHNIQUE: Bilateral lower extremity venous ultrasound performed using grayscale, color-flow, and sp ectral Doppler analysis. COMPARISON: No exams were available for comparison FINDINGS: The bilateral common femoral, femoral and popliteal veins demonstrate normal compressibility, augment ation, and color Doppler. The posterior tibial veins are patent. The saphenofemoral junctions are unr emarkable. There is no evidence of a Jefferson's cyst. The soft tissues are unremarkable. IMPRESSION: Right: Negative for DVT Left: Negative for DVT DATA REPOSITORY:
[2020-01-02] MEDS: Heparin 5,000 UNITS/ML VIAL 5000 UNITS SC ×3 (00:02→16:09)
[2020-01-02] MEDS: Normal Saline Flush 10 ML SYR IVP ×7 (00:02→17:17)
[2020-01-02] MEDS: ACETAMINOPHEN 1,000 MG/100 ML BTL 400 MG IVPB (02:09)
[2020-01-02] MEDS: HYDROmorphone 2 MG/ML VIAL IVP ×6 (02:48→21:38)
[2020-01-02 03:32] VITALS: BP 142/79; PULSE 90; RESP 19; TEMP 37.2; O2SAT 100
[2020-01-02] MEDS: IMIPENEM/CILASTATIN 500 MG in Normal Saline 100 ML 200 MG IVPB ×4 (03:57→21:39)
[2020-01-02] MEDS: Lidocaine Patch Removal 2 EACH TP (05:44)
[2020-01-02 07:07] LABS: Abs Immature Grans 0.22 k/cumm (0.0-0.09); Absolute Basophil Count 0.02 k/cumm (0.0-0.2); Absolute Lymphocyte Count 1.56 k/cumm (1.2-3.4); Basophils % 0.1; Eosinophils % 1.8; HCT 32.9 % (40.0-50.0); HGB 11.2 g/dL (13.5-17.5); Immature Grans % 1.4 %; Lymphocytes % 10.2; Mean Corpuscular Hemoglobin 32.9 pg (27.0-33.0); Mean Corpuscular Volume 96.8 fL (80-95); Monocytes % 7.2; Neutrophils % 79.3; Platelet Count 383 x1000/uL (130-400); RBC Distribution Width 13.5 % (11.8-14.1); White Blood Cell Count 15.27 k/cumm (4.4-10.8)
[2020-01-02 07:08] LABS: Absolute Eosinophil Count 0.27 k/cumm (0.0-0.7); Absolute Neutrophil Count 12.11 k/cumm (1.2-6.7)
[2020-01-02 07:15] VITALS: BP 142/89; PULSE 85; RESP 19; TEMP 35.8; O2SAT 100
[2020-01-02 07:31] LABS: Anion Gap 6.2 mmol/L (3-11); BUN 7 mg/dL (7-18); C-Reactive Protein 24.01 mg/dL (0.0-0.3); CO2 30.8 mmol/L (21.0-32.0); CREATININE 1.14 mg/dL (0.70-1.30); Calcium 8.1 mg/dL (8.5-10.1); Chloride 100 mmol/L (98-107); Glucose 152 mg/dL (74-106); Lipase 137 U/L (73-393); Potassium 3.2 mmol/L (3.5-5.1); Sodium 137 mmol/L (136-145)
[2020-01-02] MEDS: Insulin Aspart 300 UNITS/3 ML PEN SC ×4 (08:13→21:57)
[2020-01-02] MEDS: Nicotine 21 MG/24 HR PATCH TD (08:14)
[2020-01-02] MEDS: Multivitamin TAB 1 TAB PO (08:15)
[2020-01-02] MEDS: Furosemide 20 MG TAB PO (08:15)
[2020-01-02] MEDS: Pantoprazole 40 MG VIAL IVP (08:15)
[2020-01-02] MEDS: Cyclobenzaprine 10 MG TAB PO ×3 (08:15→21:56)
[2020-01-02] MEDS: Thiamine 100 MG TAB PO (08:15)
[2020-01-02] MEDS: Lactobacillus Acidophilus CAP 1 CAP PO ×3 (08:15→19:36)
--- NOTE | 2020-01-02 09:03 | PDOC.CMPRO ---
- If Service Date Differs Date of service: 01/02/20 Time of Service: 09:04 Care Management Progress Note S/O: Diogo was sitting up in bed when CM came to see him. He again stated that he is very uncomfortable because of the abdominal and scrotal swelling. He had just been medicated for a pain level of 8 which he stated was from the edema, not from the pancreatitis. Diogo requested assistance with diet planning for his pancreatitis as well as his elevated blood sugars. CM spoke with the cardiovascular tech who plans to meet with Diogo tomorrow to discuss those things. Diogo stated that it is not clear yet if he actually has new onset diabetes or if this is a direct result of the necrotizing pancreatitis and will resolve. He also requested information about pricing for glucometers and test strips. A: Diogo is a 49 year old man admitted on 12/26/19 with pancreatitis P: Diogo is being treated for necrotizing pancreatitis. CM will continue to support patient and to assess for discharge needs. CM has confirmed that Diogo is insured with [employer] through his , so Financial Assist will not be necessary. He will likely be discharged home with no services when medically ready.
--- NOTE | 2020-01-02 09:14 | PGE_ITS ---
Date of Service Date of service: 01/02/20 Time of Service: 09:14 Assessment and Plan Assessment and plan (1) Elevated white blood cell count, unspecified: Status: Acute Assessment and plan: -pt has dopplers pd today to r/o DVT. has generalized LE/dependent edema from combo low albumin and from his Dx process. But given his dx process- he is at high risk. Clinically he is asymp and has been on lovenox. Will check for completeness. All other causes for persistent elevated WBC count have been evaluated and appear to be negative. Although his white count is down for today. Again there does not seem to be any sign of abscess or need for debridement of the pancreas today. (2) Atelectasis of both lungs: Status: Acute Assessment and plan: pt is up walking and doing IS. again, clinically, appears to be asymp. (3) Acute necrotizing pancreatitis: Status: Acute Assessment and plan: re-enforced w/ pt importance of ETOH abstinence- lifelong d/w him expectations at home. He will need to closely monitor blood sugars and weight. He will have signif dietary restrictions (for now) Will have DM educator and nutrition visit w/ him and set up w/ supplies and community monitoring. He is going to need to work on ETOH abstinence. I would anticipate 2 wks off of work for additional recovery. No driving for at least one wk BID f/u w/ PCP to monitor labs/blood sugars/wt protonix creon and insulin replacement prop-biotics ?antibiotics I would not give loperamide at this time. So we can adjust creon dosing. He will Subjective Subjective Interval history since last seen: Pt is doing well. no headaches. No CP or SOB. no productive cough. no dysuria. no leg pain. LE/dependent edema tolerating diet. stools are firming up w/ solid food- though still pieces and pudding consistency. going about 1-3x/day. no blood. Pain from pancrease is prob better. pt still has signif edema. He feels pain more in back and in L flank. no peritonitis. no echymosis. Exam Narrative Exam Narrative: no jaundice. no sinus pain or d/c no thrush no dental pain Resp Effort & Inspection: normal respiratory effort, able to speak in complete sentences and no audible wheezes Auscultation: clear to auscultation bilaterally, no rales, no rhonchi and no wheezes Cardio Jugular venous pressure: no JVD Rate: regular rate Rhythm: regular rhythm GI Inspection: edema Palpation: soft and No ascites Auscultation: normal bowel sounds Skin Other: no breakdown Extrem General: full ROM, capillary refill normal and pedal edema Objective Objective Clinical Data: Abnormal lab results 01/01/20 01/02/20 01/02/20 Range/Units 10:16 06:10 06:10 WBC 15.27 H (4.4-10.8) k/cumm RBC 3.40 L (4.50-6.00) m/cumm Hgb 11.2 L (13.5-17.5) g/dL Hct 32.9 L (40.0-50.0) % MCV 96.8 H (80-95) fL Absolute Neutrophils 12.11 H (1.2-6.7) k/cumm Absolute Monocytes 1.10 H (0.11-0.7) k/cumm Potassium 3.2 L (3.5-5.1) mmol/L Glucose 152 H (74-106) mg/dL Calcium 8.1 L (8.5-10.1) mg/dL C-Reactive Protein 24.01 H (0.0-0.3) mg/dL Urine Protein Trace H (Negative) mg/dL Urine Ketones 15 H (Negative) mg/dL Urine Glucose 250 H (Negative) mg/dL Vital Signs Temperature 35.8 C L 01/02/20 07:15 Temperature Source Tympanic 01/02/20 07:15 Pulse 85 01/02/20 07:15 Pulse Rhythm Regular 01/02/20 08:56 Pulse 112 H 12/26/19 08:17 Respiratory Rate 19 01/02/20 07:15 Respiratory Effort 01/02/20 08:56 Respiratory Depth Normal 01/02/20 08:56 Respiratory Pattern Normal 01/02/20 08:56 Blood Pressure 142/89 H 01/02/20 07:15 Blood Pressure Mean 106 12/26/19 08:17 Pulse Oximetry 100 01/02/20 07:15 Oxygen Delivery Method Room Air 01/02/20 07:15 Oxygen Flow Rate 0 01/02/20 07:15 Pain Level 6 01/02/20 07:15 Comment 12/29/19 06:00 Intake & Output 01/01/20 01/01/20 01/02/20 11:59 23:59 11:59 Intake Total 1105 / 1755 650 / 1755 450 / 450 Output Total 1700 / 3800 2100 / 3800 550 / 550 Balance -595 / -2045 -1450 / -2045 -100 / -100 Intake: IV 895 / 1545 650 / 1545 450 / 450 Oral 210 / 210 Output: Urine 1700 / 3800 2100 / 3800 550 / 550 Other: Urine Color Yellow Yellow Yellow Urine Appearance Clear Clear Clear Urine Odor None Normal Stool Size Moderate Moderate Stool Characteristics Soft Soft Formed Formed Brown Brown Voiding Methods Urinal Urinal Laboratory Results WBC 15.27 k/cumm (4.4-10.8) H 01/02/20 06:10 RBC 3.40 m/cumm (4.50-6.00) L 01/02/20 06:10 Hgb 11.2 g/dL (13.5-17.5) L 01/02/20 06:10 Hct 32.9 % (40.0-50.0) L 01/02/20 06:10 MCV 96.8 fL (80-95) H 01/02/20 06:10 MCH 32.9 pg (27.0-33.0) 01/02/20 06:10 MCHC 34.0 g/dL (32.0-36.0) 01/02/20 06:10 RDW 13.5 % (11.8-14.1) 01/02/20 06:10 Plt Count 383 x1000/uL (130-400) 01/02/20 06:10 MPV 10.0 fL (8.0-11.0) 01/02/20 06:10 Immature Gran % 1.4 % 01/02/20 06:10 Neutrophils % 79.3 01/02/20 06:10 Band Neutrophils % 20.0 % 01/01/20 06:25 Lymphocytes % 10.2 01/02/20 06:10 Atypical Lymphs % 2 12/31/19 06:17 Monocytes % 7.2 01/02/20 06:10 Eosinophils % 1.8 01/02/20 06:10 Basophils % 0.1 01/02/20 06:10 Metamyelocytes % 1.0 % 12/30/19 06:24 Absolute Neutrophils 12.11 k/cumm (1.2-6.7) H 01/02/20 06:10 Absolute Lymphocytes 1.56 k/cumm (1.2-3.4) 01/02/20 06:10 Absolute Monocytes 1.10 k/cumm (0.11-0.7) H 01/02/20 06:10 Absolute Eosinophils 0.27 k/cumm (0.0-0.7) 01/02/20 06:10 Absolute Basophils 0.02 k/cumm (0.0-0.2) 01/02/20 06:10 Differential Comment Manual differential 01/01/20 06:25 RBC Morphology See below 01/01/20 06:25 Polychromasia Present 12/31/19 06:17 Anisocytosis 1+ 01/01/20 06:25 VBG pH 7.33 (7.35-7.45) L 12/26/19 17:00 VBG pCO2 40 mm/Hg (34-47) 12/26/19 17:00 VBG pO2 37 mm/Hg (28-44) 12/26/19 17:00 VBG HCO3 Not Applicable 12/26/19 17:00 VBG Total CO2 Not Applicable 12/26/19 17:00 VBG O2 Saturation Not Applicable 12/26/19 17:00 VBG Base Excess Not Applicable 12/26/19 17:00 Sodium 137 mmol/L (136-145) 01/02/20 06:10 Potassium 3.2 mmol/L (3.5-5.1) L 01/02/20 06:10 Chloride 100 mmol/L (98-107) 01/02/20 06:10 Carbon Dioxide 30.8 mmol/L (21.0-32.0) 01/02/20 06:10 Anion Gap 6.2 mmol/L (3-11) 01/02/20 06:10 BUN 7 mg/dL (7-18) 01/02/20 06:10 Creatinine 1.14 mg/dL (0.70-1.30) 01/02/20 06:10 Estimated GFR/1.73 m2 >= 60.00 (mL/min/1.73m2) 01/02/20 06:10 Glucose 152 mg/dL (74-106) H 01/02/20 06:10 Calcium 8.1 mg/dL (8.5-10.1) L 01/02/20 06:10 Ionized Calcium 0.90 mmol/L (1.12-1.32) L 12/27/19 14:01 Magnesium 2.0 mg/dL (1.8-2.4) 01/02/20 06:10 Total Bilirubin 0.6 mg/dL (0.2-1.0) 01/01/20 06:25 Conjugated Bilirubin 0.27 mg/dL (0.00-0.20) H 01/01/20 06:25 AST 38 U/L (15-37) H 01/01/20 06:25 ALT 31 U/L (16-63) 01/01/20 06:25 Alkaline Phosphatase 229 U/L (46-116) H 01/01/20 06:25 C-Reactive Protein 24.01 mg/dL (0.0-0.3) H 01/02/20 06:10 Total Protein 6.1 g/dL (6.4-8.2) L 01/01/20 06:25 Albumin 1.9 g/dL (3.4-5.0) L 01/01/20 06:25 Lipase 137 U/L (73-393) 01/02/20 06:10 Procalcitonin 8.2 ng/mL 12/31/19 06:10 Urine Color Yellow (Yellow) 01/01/20 10:16 Urine Clarity Clear (Clear) 01/01/20 10:16 Urine pH 7.5 (5-8) 01/01/20 10:16 Ur Specific [place] 1.020 (1.005-1.025) 01/01/20 10:16 Urine Protein Trace mg/dL (Negative) H 01/01/20 10:16 Urine Ketones 15 mg/dL (Negative) H 01/01/20 10:16 Urine Blood Negative (Negative) 01/01/20 10:16 Urine Nitrite Negative (Negative) 01/01/20 10:16 Urine Bilirubin Negative (Negative) 01/01/20 10:16 Urine Urobilinogen 0.2 EU/dL (Up TO 0.2) 01/01/20 10:16 Ur Leukocyte Esterase Negative (Negative) 01/01/20 10:16 Urine RBC 0-2 HPF (0-2) 01/01/20 10:16 Urine WBC 0-2 HPF (0-5) 01/01/20 10:16 Ur Epithelial Cells Rare HPF (Negative) 01/01/20 10:16 Urine Crystals Negative HPF (Negative) 01/01/20 10:16 Urine Bacteria Rare HPF (Negative) 01/01/20 10:16 Urine Casts Negative LPF (Negative) 01/01/20 10:16 Urine Mucus Trace (Negative) 01/01/20 10:16 Ur Culture Indicated? No 01/01/20 10:16 Ur Random Creatinine 512.65 mg/dL 12/27/19 11:43 Ur Random Sodium 3 mmol/L 12/27/19 11:43 Urine Glucose 250 mg/dL (Negative) H 01/01/20 10:16 Vancomycin Trough 10.2 ug/mL (10.0-20.0) 01/01/20 15:40 COVID-19 PCR Negative (Negative) 12/26/19 00:55 Nasopharyn COVID-19 PCR Not Applicable 12/26/19 00:55 [facility] 12/26/[facility] 00:55
[2020-01-02 11:20] VITALS: BP 128/76; PULSE 106; RESP 19; TEMP 37.4; O2SAT 98
[2020-01-02] MEDS: Potassium Chloride 20 MEQ TABCR 40 MEQ PO (12:13)
[2020-01-02] MEDS: Creon, Lipase 6,000 CAPCR 1 CAP PO ×2 (12:24→16:09)
[2020-01-02] MEDS: Dicyclomine 10 MG CAP PO ×2 (13:43→21:55)
[2020-01-02] MEDS: oxyCODONE 10 MG TAB PO (13:43)
[2020-01-02 15:14] VITALS: BP 148/91; PULSE 93; RESP 17; TEMP 38.1; O2SAT 98
--- NOTE | 2020-01-02 16:03 | PGE_ITS ---
Date of Service Date of service: 01/02/20 Time of Service: 16:03 Assessment and Plan Assessment and plan (1) Acute necrotizing pancreatitis: Status: Acute Assessment and plan: With possibly infected peripancreatic phlegmon. Better. Tolerating solid food. I do not like the fever, but WBC is better. Evaluated by general surgery - no surgical intervention is recommended at this time. Continue empiric primaxin (day 6). Continue regular diet, monitor CRP, CBC, chemistries. (2) SIRS (systemic inflammatory response syndrome): Status: Acute Assessment and plan: Sources: pancreatitis +/- developing pancreatic infection, atelectasis, +/- PNA. I am not convinced he has pneumonia Continue vancomycin (day 3), Continue primaxin (day 6). Encourage IS. Consider ID consult if WBC is worsening. venous doppler negative. (3) Atelectasis of both lungs: Status: Acute Assessment and plan: As above. (4) Alcohol abuse: Status: Chronic Assessment and plan: Latest CIWA scores have been zero. No longer at risk for withdrawal - CIWA d/c'ed. Continue MVI, thiamine. (5) Elevated blood pressure reading: Status: Chronic Assessment and plan: Pain control Continue salt restriction. Control pain. (6) Acute kidney injury: Status: Resolved Assessment and plan: ? Prerenal vs ATN. Decrease IVF, monitoring Cr. Monitor I/O's. (7) Hyperglycemia: Status: Acute Assessment and plan: A1C 5.6. Continue carb restriction. Continue SSI. (8) Hyperkalemia: Status: Resolved Assessment and plan: Recheck in am. (9) Hypokalemia: Status: Acute Assessment and plan: Replete, recheck in am (10) Hypocalcemia: Status: Resolved Assessment and plan: Recheck in am. (11) Discharge planning issues: Status: Acute Assessment and plan: Full code Continues to require hospitalization with low threshold to transfer to ICU/tertiary care facility (12) DVT prophylaxis: Status: Acute Assessment and plan: SC heparin Subjective Subjective Interval history since last seen: Mr Barba states that oxycodone is not controlling his pain. Stool is firming up - dark brown. Denies dizziness, chest pain, shortness of breath, nausea. Febrile today to 38.1. Exam Narrative Exam Narrative: General: Very pleasant obese male, A&Ox3, seen walking in the hallways multiple times today HEENT: EOMI, MMM Heart: RRR, no m/r/g Lungs: CTAB, excellent aeration Abdomen: distended, soft, tender in LLQ predominantly Extremities: +1 BLE edema, better Objective Objective Clinical Data: Abnormal lab results 01/02/20 01/02/20 01/02/20 Range/Units 06:10 06:10 15:07 WBC 15.27 H (4.4-10.8) k/cumm RBC 3.40 L (4.50-6.00) m/cumm Hgb 11.2 L (13.5-17.5) g/dL Hct 32.9 L (40.0-50.0) % MCV 96.8 H (80-95) fL Absolute Neutrophils 12.11 H (1.2-6.7) k/cumm Absolute Monocytes 1.10 H (0.11-0.7) k/cumm Potassium 3.2 L (3.5-5.1) mmol/L Glucose 152 H (74-106) mg/dL Calcium 8.1 L (8.5-10.1) mg/dL C-Reactive Protein 24.01 H (0.0-0.3) mg/dL Vancomycin Trough 22.0 H* (10.0-20.0) ug/mL Vital Signs Temperature 38.1 C H 01/02/20 15:14 Temperature Source Tympanic 01/02/20 15:14 Pulse 93 H 01/02/20 15:14 Pulse Rhythm Regular 01/02/20 08:56 Pulse 112 H 12/26/19 08:17 Respiratory Rate 17 01/02/20 15:14 Respiratory Effort 01/02/20 08:56 Respiratory Depth Normal 01/02/20 08:56 Respiratory Pattern Normal 01/02/20 08:56 Blood Pressure 148/91 H 01/02/20 15:14 Blood Pressure Mean 106 12/26/19 08:17 Pulse Oximetry 98 01/02/20 15:14 Oxygen Delivery Method Room Air 01/02/20 15:14 Oxygen Flow Rate 0 01/02/20 15:14 Pain Level 9 01/02/20 15:37 Comment 12/29/19 06:00 Intake & Output 06/10/20 06/11/20 06/11/20 23:59 11:59 23:59 Intake Total 650 / 1755 830 / 930 100 / 930 Output Total 2100 / 3800 850 / 1200 350 / 1200 Balance -1450 / -2045 -20 / -270 -250 / -270 Intake: IV 650 / 1545 470 / 570 100 / 570 Oral 360 / 360 Output: Urine 2100 / 3800 850 / 1200 350 / 1200 Other: Urine Color Yellow Light Elvia Yellow Urine Appearance Clear Clear Clear Urine Odor Normal None Normal Stool Size Moderate Stool Characteristics Soft Formed Brown Voiding Methods Urinal Urinal Urinal Laboratory Results WBC 15.27 k/cumm (4.4-10.8) H 01/02/20 06:10 RBC 3.40 m/cumm (4.50-6.00) L 01/02/20 06:10 Hgb 11.2 g/dL (13.5-17.5) L 01/02/20 06:10 Hct 32.9 % (40.0-50.0) L 01/02/20 06:10 MCV 96.8 fL (80-95) H 01/02/20 06:10 MCH 32.9 pg (27.0-33.0) 01/02/20 06:10 MCHC 34.0 g/dL (32.0-36.0) 01/02/20 06:10 RDW 13.5 % (11.8-14.1) 01/02/20 06:10 Plt Count 383 x1000/uL (130-400) 01/02/20 06:10 MPV 10.0 fL (8.0-11.0) 01/02/20 06:10 Immature Gran % 1.4 % 01/02/20 06:10 Neutrophils % 79.3 01/02/20 06:10 Band Neutrophils % 20.0 % 01/01/20 06:25 Lymphocytes % 10.2 01/02/20 06:10 Atypical Lymphs % 2 12/31/19 06:17 Monocytes % 7.2 01/02/20 06:10 Eosinophils % 1.8 01/02/20 06:10 Basophils % 0.1 01/02/20 06:10 Metamyelocytes % 1.0 % 12/30/19 06:24 Absolute Neutrophils 12.11 k/cumm (1.2-6.7) H 01/02/20 06:10 Absolute Lymphocytes 1.56 k/cumm (1.2-3.4) 01/02/20 06:10 Absolute Monocytes 1.10 k/cumm (0.11-0.7) H 01/02/20 06:10 Absolute Eosinophils 0.27 k/cumm (0.0-0.7) 01/02/20 06:10 Absolute Basophils 0.02 k/cumm (0.0-0.2) 01/02/20 06:10 Differential Comment Manual differential 01/01/20 06:25 RBC Morphology See below 01/01/20 06:25 Polychromasia Present 12/31/19 06:17 Anisocytosis 1+ 01/01/20 06:25 VBG pH 7.33 (7.35-7.45) L 12/26/19 17:00 VBG pCO2 40 mm/Hg (34-47) 12/26/19 17:00 VBG pO2 37 mm/Hg (28-44) 12/26/19 17:00 VBG HCO3 Not Applicable 12/26/19 17:00 VBG Total CO2 Not Applicable 12/26/19 17:00 VBG O2 Saturation Not Applicable 12/26/19 17:00 VBG Base Excess Not Applicable 12/26/19 17:00 Sodium 137 mmol/L (136-145) 01/02/20 06:10 Potassium 3.2 mmol/L (3.5-5.1) L 01/02/20 06:10 Chloride 100 mmol/L (98-107) 01/02/20 06:10 Carbon Dioxide 30.8 mmol/L (21.0-32.0) 01/02/20 06:10 Anion Gap 6.2 mmol/L (3-11) 01/02/20 06:10 BUN 7 mg/dL (7-18) 01/02/20 06:10 Creatinine 1.14 mg/dL (0.70-1.30) 01/02/20 06:10 Estimated GFR/1.73 m2 >= 60.00 (mL/min/1.73m2) 01/02/20 06:10 Glucose 152 mg/dL (74-106) H 01/02/20 06:10 Calcium 8.1 mg/dL (8.5-10.1) L 01/02/20 06:10 Ionized Calcium 0.90 mmol/L (1.12-1.32) L 12/27/19 14:01 Magnesium 2.0 mg/dL (1.8-2.4) 01/02/20 06:10 Total Bilirubin 0.6 mg/dL (0.2-1.0) 01/01/20 06:25 Conjugated Bilirubin 0.27 mg/dL (0.00-0.20) H 01/01/20 06:25 AST 38 U/L (15-37) H 01/01/20 06:25 ALT 31 U/L (16-63) 01/01/20 06:25 Alkaline Phosphatase 229 U/L (46-116) H 01/01/20 06:25 C-Reactive Protein 24.01 mg/dL (0.0-0.3) H 01/02/20 06:10 Total Protein 6.1 g/dL (6.4-8.2) L 01/01/20 06:25 Albumin 1.9 g/dL (3.4-5.0) L 01/01/20 06:25 Lipase 137 U/L (73-393) 01/02/20 06:10 Procalcitonin 8.2 ng/mL 12/31/19 06:10 Urine Color Yellow (Yellow) 01/01/20 10:16 Urine Clarity Clear (Clear) 01/01/20 10:16 Urine pH 7.5 (5-8) 01/01/20 10:16 Ur Specific [place] 1.020 (1.005-1.025) 01/01/20 10:16 Urine Protein Trace mg/dL (Negative) H 01/01/20 10:16 Urine Ketones 15 mg/dL (Negative) H 01/01/20 10:16 Urine Blood Negative (Negative) 01/01/20 10:16 Urine Nitrite Negative (Negative) 01/01/20 10:16 Urine Bilirubin Negative (Negative) 01/01/20 10:16 Urine Urobilinogen 0.2 EU/dL (Up TO 0.2) 01/01/20 10:16 Ur Leukocyte Esterase Negative (Negative) 01/01/20 10:16 Urine RBC 0-2 HPF (0-2) 01/01/20 10:16 Urine WBC 0-2 HPF (0-5) 01/01/20 10:16 Ur Epithelial Cells Rare HPF (Negative) 01/01/20 10:16 Urine Crystals Negative HPF (Negative) 01/01/20 10:16 Urine Bacteria Rare HPF (Negative) 01/01/20 10:16 Urine Casts Negative LPF (Negative) 01/01/20 10:16 Urine Mucus Trace (Negative) 01/01/20 10:16 Ur Culture Indicated? No 01/01/20 10:16 Ur Random Creatinine 512.65 mg/dL 12/27/19 11:43 Ur Random Sodium 3 mmol/L 12/27/19 11:43 Urine Glucose 250 mg/dL (Negative) H 01/01/20 10:16 Vancomycin Trough 22.0 ug/mL (10.0-20.0) H* 01/02/20 15:07 COVID-19 PCR Negative (Negative) 12/26/19 00:55 Nasopharyn COVID-19 PCR Not Applicable 12/26/19 00:55 Path Cons Comment 01/01/20 06:25 Ref Test Perform Site [facility] 12/26/19 00:55 Venous doppler BLE's: Right: Negative for DVT Left: Negative for DVT
[2020-01-02] MEDS: Lidocaine 5% Patch 2 PATCH TP (17:16)
[2020-01-02 19:45] VITALS: BP 147/92; PULSE 98; RESP 18; TEMP 37; O2SAT 100
[2020-01-02] MEDS: Zolpidem 5 MG TAB PO (21:40)
[2020-01-02 23:35] VITALS: BP 144/89; PULSE 91; RESP 18; TEMP 36.5; O2SAT 98
[2020-01-03] MEDS: Heparin 5,000 UNITS/ML VIAL 5000 UNITS SC ×3 (00:44→17:16)
[2020-01-03] MEDS: Normal Saline Flush 10 ML SYR IVP ×10 (00:50→19:06)
[2020-01-03] MEDS: HYDROmorphone 2 MG/ML VIAL IVP ×8 (00:51→22:05)
[2020-01-03] MEDS: Normal Saline 500 ML IV (02:13)
[2020-01-03 03:30] VITALS: BP 145/85; PULSE 95; RESP 17; TEMP 36.9; O2SAT 98
[2020-01-03] MEDS: IMIPENEM/CILASTATIN 500 MG in Normal Saline 100 ML 200 MG IVPB ×4 (04:17→22:37)
[2020-01-03 07:02] LABS: Abs Immature Grans 0.21 k/cumm (0.0-0.09); HCT 34.8 % (40.0-50.0); HGB 11.8 g/dL (13.5-17.5); Mean Corp. HGB Concentration 33.9 g/dL (32.0-36.0); Mean Corpuscular Hemoglobin 32.6 pg (27.0-33.0); Mean Corpuscular Volume 96.1 fL (80-95); Platelet Count 491 x1000/uL (130-400); RBC 3.62 m/cumm (4.50-6.00); RBC Distribution Width 13.3 % (11.8-14.1)
[2020-01-03 07:23] LABS: BUN 10 mg/dL (7-18); C-Reactive Protein 21.91 mg/dL (0.0-0.3); CREATININE 1.11 mg/dL (0.70-1.30); Calcium 8.5 mg/dL (8.5-10.1); Chloride 99 mmol/L (98-107); Glucose 192 mg/dL (74-106); Potassium 3.8 mmol/L (3.5-5.1); Sodium 135 mmol/L (136-145)
[2020-01-03] MEDS: Lidocaine Patch Removal 2 EACH TP (07:23)
[2020-01-03] MEDS: Creon, Lipase 6,000 CAPCR 1 CAP PO ×3 (07:29→16:45)
[2020-01-03] MEDS: Cyclobenzaprine 10 MG TAB PO ×3 (07:29→22:05)
[2020-01-03] MEDS: Dicyclomine 10 MG CAP PO ×2 (07:29→16:45)
[2020-01-03] MEDS: Pantoprazole 40 MG TABCR PO (07:29)
[2020-01-03 07:36] LABS: Absolute Eosinophil Count 0.17 k/cumm (0.0-0.7); Absolute Lymphocyte Count 1.49 k/cumm (1.2-3.4); Absolute Monocyte Count 1.66 k/cumm (0.11-0.7); Absolute Neutrophil Count 12.95 k/cumm (1.2-6.7); Diff Comment Manual Differential; Polychromasia Present
[2020-01-03 07:50] VITALS: BP 148/98; PULSE 98; RESP 20; TEMP 37.6; O2SAT 99
[2020-01-03] MEDS: Potassium Chloride 20 MEQ TABCR 40 MEQ PO (08:11)
[2020-01-03] MEDS: Furosemide 20 MG TAB PO (08:12)
[2020-01-03] MEDS: Multivitamin TAB 1 TAB PO (08:12)
[2020-01-03] MEDS: Insulin Aspart 300 UNITS/3 ML PEN SC ×4 (08:12→22:35)
[2020-01-03] MEDS: Lactobacillus Acidophilus CAP 1 CAP PO ×3 (08:12→21:56)
[2020-01-03] MEDS: Nicotine 21 MG/24 HR PATCH TD (08:12)
[2020-01-03] MEDS: Thiamine 100 MG TAB PO (08:12)
[2020-01-03 08:13] LABS: Procalcitonin 1.8 ng/mL
--- NOTE | 2020-01-03 10:13 | PGE_ITS ---
Date of Service Date of service: 01/03/20 Time of Service: 10:14 Assessment and Plan Assessment and plan (1) Elevated white blood cell count, unspecified: Status: Acute (2) Acute necrotizing pancreatitis: Status: Acute Assessment and plan: cont w/ abx - no etiology for the elevated WBC, No signs of C. diff. cont proBiotics cont w/ pancreatic insuff and elevated blood sugars. cont to work on regulating these. May be very irregular for some time. He will continue to be on sliding scale insuling and require glucometer and check blood sugars regularly. edema will take some time to subside. alcohol treatment also dietary modifications. clinically pt looks much better than labs and CT. (3) Hyperglycemia: Status: Acute (4) Pancreatitis: Status: Acute (5) Alcohol abuse: Status: Chronic (6) Tobacco dependence: Status: Acute (7) Pancreatitis: Status: Acute Subjective Subjective Interval history since last seen: Pt is doing well. no headaches. No CP or SOB. no productive cough. no dysuria. no leg pain or swelling. Pt tolerated diet well. He has minimal pain. Stools are still loose. Some gas and bloating. Overall, feels pretty good. Exam HENMT Other: denittion is intact, no thrush/mouth pain no jaundice Resp Effort & Inspection: normal respiratory effort and able to speak in complete sentences Auscultation: clear to auscultation bilaterally Cardio Rate: regular rate Rhythm: regular rhythm GI Inspection: edema, distended and other (flank edema/ mild tenderness on left. ) Auscultation: normal bowel sounds Extrem General: pedal edema Objective Objective Clinical Data: Abnormal lab results 01/02/20 01/03/20 01/03/20 Range/Units 15:07 06:45 06:45 WBC 16.60 H (4.4-10.8) k/cumm RBC 3.62 L (4.50-6.00) m/cumm Hgb 11.8 L (13.5-17.5) g/dL Hct 34.8 L (40.0-50.0) % MCV 96.1 H (80-95) fL Plt Count 491 H (130-400) x1000/uL Absolute Neutrophils 12.95 H (1.2-6.7) k/cumm Absolute Monocytes 1.66 H (0.11-0.7) k/cumm Sodium 135 L (136-145) mmol/L Glucose 192 H (74-106) mg/dL C-Reactive Protein 21.91 H (0.0-0.3) mg/dL Vancomycin Trough 22.0 H* (10.0-20.0) ug/mL Vital Signs Temperature 37.6 C H 01/03/20 07:50 Temperature Source Tympanic 01/03/20 07:50 Pulse 98 H 01/03/20 07:50 Pulse Rhythm Regular 01/03/20 00:00 Pulse 112 H 12/26/19 08:17 Respiratory Rate 20 01/03/20 07:50 Respiratory Effort Non-Labored 01/03/20 00:00 Respiratory Depth Normal 01/03/20 00:00 Respiratory Pattern Normal 01/03/20 00:00 Blood Pressure 148/98 H 01/03/20 07:50 Blood Pressure Mean 106 12/26/19 08:17 Pulse Oximetry 99 01/03/20 07:50 Oxygen Delivery Method Room Air 01/03/20 07:50 Oxygen Flow Rate 0 01/03/20 07:50 Pain Level 7 01/03/20 09:59 Comment 01/03/20 03:30 Intake & Output 01/02/20 01/02/20 01/03/20 11:59 23:59 11:59 Intake Total 830 / 1550 650 / 1550 900 / 900 Output Total 850 / 2750 1650 / 2750 1000 / 1000 Balance -20 / -1200 -1000 / -1200 -100 / -100 Intake: IV 470 / 1190 650 / 1190 420 / 420 Oral 360 / 360 480 / 480 Output: Urine 850 / 2750 1650 / 2750 1000 / 1000 Other: Urine Color Light Elvia Yellow Yellow Urine Appearance Clear Clear Clear Urine Odor None Normal None Comment Void x1 in the urinal. Voiding Methods Urinal Toilet Urinal Urinal Laboratory Results WBC 16.60 k/cumm (4.4-10.8) H 01/03/20 06:45 RBC 3.62 m/cumm (4.50-6.00) L 01/03/20 06:45 Hgb 11.8 g/dL (13.5-17.5) L 01/03/20 06:45 Hct 34.8 % (40.0-50.0) L 01/03/20 06:45 MCV 96.1 fL (80-95) H 01/03/20 06:45 MCH 32.6 pg (27.0-33.0) 01/03/20 06:45 MCHC 33.9 g/dL (32.0-36.0) 01/03/20 06:45 RDW 13.3 % (11.8-14.1) 01/03/20 06:45 Plt Count 491 x1000/uL (130-400) H 01/03/20 06:45 MPV 10.0 fL (8.0-11.0) 01/03/20 06:45 Immature Gran % See Differential 01/03/20 06:45 Neutrophils % 78.0 01/03/20 06:45 Band Neutrophils % 20.0 % 01/01/20 06:25 Lymphocytes % 9.0 01/03/20 06:45 Atypical Lymphs % 2 12/31/19 06:17 Monocytes % 10.0 01/03/20 06:45 Eosinophils % 1.0 01/03/20 06:45 Basophils % 0.0 01/03/20 06:45 Metamyelocytes % 1.0 % 01/03/20 06:45 Myelocytes % 1.0 % 01/03/20 06:45 Absolute Neutrophils 12.95 k/cumm (1.2-6.7) H 01/03/20 06:45 Absolute Lymphocytes 1.49 k/cumm (1.2-3.4) 01/03/20 06:45 Absolute Monocytes 1.66 k/cumm (0.11-0.7) H 01/03/20 06:45 Absolute Eosinophils 0.17 k/cumm (0.0-0.7) 01/03/20 06:45 Absolute Basophils 0.00 k/cumm (0.0-0.2) 01/03/20 06:45 Differential Comment Manual differential 01/03/20 06:45 RBC Morphology See below 01/03/20 06:45 Polychromasia Present 01/03/20 06:45 Anisocytosis 1+ 01/01/20 06:25 VBG pH 7.33 (7.35-7.45) L 12/26/19 17:00 VBG pCO2 40 mm/Hg (34-47) 12/26/19 17:00 VBG pO2 37 mm/Hg (28-44) 12/26/19 17:00 VBG HCO3 Not Applicable 12/26/19 17:00 VBG Total CO2 Not Applicable 12/26/19 17:00 VBG O2 Saturation Not Applicable 12/26/19 17:00 VBG Base Excess Not Applicable 12/26/19 17:00 Sodium 135 mmol/L (136-145) L 01/03/20 06:45 Potassium 3.8 mmol/L (3.5-5.1) 01/03/20 06:45 Chloride 99 mmol/L (98-107) 01/03/20 06:45 Carbon Dioxide 29.0 mmol/L (21.0-32.0) 01/03/20 06:45 Anion Gap 7.0 mmol/L (3-11) 01/03/20 06:45 BUN 10 mg/dL (7-18) 01/03/20 06:45 Creatinine 1.11 mg/dL (0.70-1.30) 01/03/20 06:45 Estimated GFR/1.73 m2 >= 60.00 (mL/min/1.73m2) 01/03/20 06:45 Glucose 192 mg/dL (74-106) H 01/03/20 06:45 Calcium 8.5 mg/dL (8.5-10.1) 01/03/20 06:45 Ionized Calcium 0.90 mmol/L (1.12-1.32) L 12/27/19 14:01 Magnesium 2.0 mg/dL (1.8-2.4) 01/03/20 06:45 Total Bilirubin 0.6 mg/dL (0.2-1.0) 01/01/20 06:25 Conjugated Bilirubin 0.27 mg/dL (0.00-0.20) H 01/01/20 06:25 AST 38 U/L (15-37) H 01/01/20 06:25 ALT 31 U/L (16-63) 01/01/20 06:25 Alkaline Phosphatase 229 U/L (46-116) H 01/01/20 06:25 C-Reactive Protein 21.91 mg/dL (0.0-0.3) H 01/03/20 06:45 Total Protein 6.1 g/dL (6.4-8.2) L 01/01/20 06:25 Albumin 1.9 g/dL (3.4-5.0) L 01/01/20 06:25 Lipase 137 U/L (73-393) 01/02/20 06:10 Procalcitonin 1.8 ng/mL 01/03/20 06:45 Urine Color Yellow (Yellow) 01/01/20 10:16 Urine Clarity Clear (Clear) 01/01/20 10:16 Urine pH 7.5 (5-8) 01/01/20 10:16 Ur Specific [place] 1.020 (1.005-1.025) 01/01/20 10:16 Urine Protein Trace mg/dL (Negative) H 01/01/20 10:16 Urine Ketones 15 mg/dL (Negative) H 01/01/20 10:16 Urine Blood Negative (Negative) 01/01/20 10:16 Urine Nitrite Negative (Negative) 01/01/20 10:16 Urine Bilirubin Negative (Negative) 01/01/20 10:16 Urine Urobilinogen 0.2 EU/dL (Up TO 0.2) 01/01/20 10:16 Ur Leukocyte Esterase Negative (Negative) 01/01/20 10:16 Urine RBC 0-2 HPF (0-2) 01/01/20 10:16 Urine WBC 0-2 HPF (0-5) 01/01/20 10:16 Ur Epithelial Cells Rare HPF (Negative) 01/01/20 10:16 Urine Crystals Negative HPF (Negative) 01/01/20 10:16 Urine Bacteria Rare HPF (Negative) 01/01/20 10:16 Urine Casts Negative LPF (Negative) 01/01/20 10:16 Urine Mucus Trace (Negative) 01/01/20 10:16 Ur Culture Indicated? No 01/01/20 10:16 Ur Random Creatinine 512.65 mg/dL 12/27/19 11:43 Ur Random Sodium 3 mmol/L 12/27/19 11:43 Urine Glucose 250 mg/dL (Negative) H 01/01/20 10:16 Vancomycin Trough 22.0 ug/mL (10.0-20.0) H* 01/02/20 15:07 COVID-19 PCR Negative (Negative) 12/26/19 00:55 Nasopharyn COVID-19 PCR Not Applicable 12/26/19 00:55 Path Cons Comment 01/01/20 06:25 Ref Test Perform Site [place] [facility] 12/26/19 00:55
[2020-01-03 12:06] VITALS: BP 124/78; PULSE 98; RESP 20; TEMP 36.7; O2SAT 98
--- NOTE | 2020-01-03 12:38 | CMPROGNOTE_ITS ---
- If Service Date Differs Date of service: 01/03/20 Time of Service: 12:38 Care Management Progress Note S/O: Diogo was sitting on the edge of the bed when CM met with him. He was pleasant and engaged and stated that he feels about the same as he has for the past 2 days. He shared that his pancreatitis pain is much better and that the only time it bothers him is when he eats and then it's mild discomfort. He is most uncomfortable in his scrotal area where he still has significant edema. Ry an stated that he is tolerating his diet well and hopes to be able to go home by Monday. He acknowledged that not all of his numbers (WBC, blood sugar etc) are where they need to be, but that he is definitely improving. He discussed the fact that he understands that his behavior contributed to this serious episode of pancreatitis and that he can never drink alcohol again. He declined the offer of substance abuse coaching or formal treatment. A: Diogo is a 49 year old man admitted on 12/26/19 with pancreatitis P: Diogo is being treated for necrotizing pancreatitis. Diogo will need a new glucometer, test strips and diabetes education before discharge. CM discussed this with [employer] yesterday and they informed CM that they would refer the need to their Business Analytics Analyst. CM will continue to support patient and to assess for additional discharge needs. CM has confirmed that Diogo is insured with [employer] through his , so Financial Assist will not be necessary. He will likely be discharged home with no services when medically ready.
--- NOTE | 2020-01-03 13:32 | PGE_ITS ---
Date of Service Date of service: 01/03/20 Time of Service: 13:32 Assessment and Plan Assessment and plan (1) Pancreatitis: Status: Acute Assessment and plan: He looks good clinically Will continue to monitor WBC. Still felt to be inflammation related. Can hopefully work towards discharge if labs show positive trend. Subjective Subjective Interval history since last seen: Tolerating small meals Has transitioned from IV to oral pain meds. Taking primarily for discomfort in the back which is partially related to the soft tissue edema. Exam Narrative Exam Narrative: Appears comfortable Abdomen soft, no significant tenderness Objective Objective Clinical Data: Abnormal lab results 01/02/20 01/03/20 01/03/20 Range/Units 15:07 06:45 06:45 WBC 16.60 H (4.4-10.8) k/cumm RBC 3.62 L (4.50-6.00) m/cumm Hgb 11.8 L (13.5-17.5) g/dL Hct 34.8 L (40.0-50.0) % MCV 96.1 H (80-95) fL Plt Count 491 H (130-400) x1000/uL Absolute Neutrophils 12.95 H (1.2-6.7) k/cumm Absolute Monocytes 1.66 H (0.11-0.7) k/cumm Sodium 135 L (136-145) mmol/L Glucose 192 H (74-106) mg/dL C-Reactive Protein 21.91 H (0.0-0.3) mg/dL Vancomycin Trough 22.0 H* (10.0-20.0) ug/mL Vital Signs Temperature 98.1 F 01/03/20 12:06 Temperature Source Tympanic 01/03/20 12:06 Pulse 98 H 01/03/20 12:06 Pulse Rhythm Regular 01/03/20 00:00 Pulse 112 H 12/26/19 08:17 Respiratory Rate 20 01/03/20 12:06 Respiratory Effort Non-Labored 01/03/20 00:00 Respiratory Depth Normal 01/03/20 00:00 Respiratory Pattern Normal 01/03/20 00:00 Blood Pressure 124/78 01/03/20 12:06 Blood Pressure Mean 106 12/26/19 08:17 Pulse Oximetry 98 01/03/20 12:06 Oxygen Delivery Method Room Air 01/03/20 12:06 Oxygen Flow Rate 0 01/03/20 12:06 Pain Level 6 01/03/20 12:38 Comment 01/03/20 03:30 Intake & Output 01/02/20 01/03/20 01/03/20 23:59 11:59 23:59 Intake Total 650 / 1550 1034.308 / 1284.308 250 / 1284.308 Output Total 1650 / 2750 1550 / 1850 300 / 1850 Balance -1000 / -1200 -515.692 / -565.692 -50 / -565.692 Intake: IV 650 / 1190 554.308 / 804.308 250 / 804.308 Oral 480 / 480 Output: Urine 1650 / 2750 1550 / 1850 300 / 1850 Other: Urine Color Yellow Yellow Yellow Urine Appearance Clear Clear Clear Urine Odor Normal None None Comment Void x1 in the urinal. Void x1 in the urinal. Voiding Methods Toilet Urinal Urinal Urinal Laboratory Results WBC 16.60 k/cumm (4.4-10.8) H 01/03/20 06:45 RBC 3.62 m/cumm (4.50-6.00) L 01/03/20 06:45 Hgb 11.8 g/dL (13.5-17.5) L 01/03/20 06:45 Hct 34.8 % (40.0-50.0) L 01/03/20 06:45 MCV 96.1 fL (80-95) H 01/03/20 06:45 MCH 32.6 pg (27.0-33.0) 01/03/20 06:45 MCHC 33.9 g/dL (32.0-36.0) 01/03/20 06:45 RDW 13.3 % (11.8-14.1) 01/03/20 06:45 Plt Count 491 x1000/uL (130-400) H 01/03/20 06:45 MPV 10.0 fL (8.0-11.0) 01/03/20 06:45 Immature Gran % See Differential 01/03/20 06:45 Neutrophils % 78.0 01/03/20 06:45 Band Neutrophils % 20.0 % 01/01/20 06:25 Lymphocytes % 9.0 01/03/20 06:45 Atypical Lymphs % 2 06/09/20 06:17 Monocytes % 10.0 01/03/20 06:45 Eosinophils % 1.0 01/03/20 06:45 Basophils % 0.0 01/03/20 06:45 Metamyelocytes % 1.0 % 01/03/20 06:45 Myelocytes % 1.0 % 01/03/20 06:45 Absolute Neutrophils 12.95 k/cumm (1.2-6.7) H 01/03/20 06:45 Absolute Lymphocytes 1.49 k/cumm (1.2-3.4) 01/03/20 06:45 Absolute Monocytes 1.66 k/cumm (0.11-0.7) H 01/03/20 06:45 Absolute Eosinophils 0.17 k/cumm (0.0-0.7) 01/03/20 06:45 Absolute Basophils 0.00 k/cumm (0.0-0.2) 01/03/20 06:45 Differential Comment Manual differential 01/03/20 06:45 RBC Morphology See below 01/03/20 06:45 Polychromasia Present 01/03/20 06:45 Anisocytosis 1+ 01/01/20 06:25 VBG pH 7.33 (7.35-7.45) L 12/26/19 17:00 VBG pCO2 40 mm/Hg (34-47) 12/26/19 17:00 VBG pO2 37 mm/Hg (28-44) 12/26/19 17:00 VBG HCO3 Not Applicable 12/26/19 17:00 VBG Total CO2 Not Applicable 12/26/19 17:00 VBG O2 Saturation Not Applicable 12/26/19 17:00 VBG Base Excess Not Applicable 12/26/19 17:00 Sodium 135 mmol/L (136-145) L 01/03/20 06:45 Potassium 3.8 mmol/L (3.5-5.1) 01/03/20 06:45 Chloride 99 mmol/L (98-107) 01/03/20 06:45 Carbon Dioxide 29.0 mmol/L (21.0-32.0) 01/03/20 06:45 Anion Gap 7.0 mmol/L (3-11) 01/03/20 06:45 BUN 10 mg/dL (7-18) 01/03/20 06:45 Creatinine 1.11 mg/dL (0.70-1.30) 01/03/20 06:45 Estimated GFR/1.73 m2 >= 60.00 (mL/min/1.73m2) 01/03/20 06:45 Glucose 192 mg/dL (74-106) H 01/03/20 06:45 Calcium 8.5 mg/dL (8.5-10.1) 01/03/20 06:45 Ionized Calcium 0.90 mmol/L (1.12-1.32) L 12/27/19 14:01 Magnesium 2.0 mg/dL (1.8-2.4) 01/03/20 06:45 Total Bilirubin 0.6 mg/dL (0.2-1.0) 01/01/20 06:25 Conjugated Bilirubin 0.27 mg/dL (0.00-0.20) H 01/01/20 06:25 AST 38 U/L (15-37) H 01/01/20 06:25 ALT 31 U/L (16-63) 01/01/20 06:25 Alkaline Phosphatase 229 U/L (46-116) H 01/01/20 06:25 C-Reactive Protein 21.91 mg/dL (0.0-0.3) H 01/03/20 06:45 Total Protein 6.1 g/dL (6.4-8.2) L 01/01/20 06:25 Albumin 1.9 g/dL (3.4-5.0) L 01/01/20 06:25 Lipase 137 U/L (73-393) 01/02/20 06:10 Procalcitonin 1.8 ng/mL 01/03/20 06:45 Urine Color Yellow (Yellow) 01/01/20 10:16 Urine Clarity Clear (Clear) 01/01/20 10:16 Urine pH 7.5 (5-8) 01/01/20 10:16 Ur Specific [place] 1.020 (1.005-1.025) 01/01/20 10:16 Urine Protein Trace mg/dL (Negative) H 01/01/20 10:16 Urine Ketones 15 mg/dL (Negative) H 01/01/20 10:16 Urine Blood Negative (Negative) 01/01/20 10:16 Urine Nitrite Negative (Negative) 01/01/20 10:16 Urine Bilirubin Negative (Negative) 01/01/20 10:16 Urine Urobilinogen 0.2 EU/dL (Up TO 0.2) 01/01/20 10:16 Ur Leukocyte Esterase Negative (Negative) 01/01/20 10:16 Urine RBC 0-2 HPF (0-2) 01/01/20 10:16 Urine WBC 0-2 HPF (0-5) 01/01/20 10:16 Ur Epithelial Cells Rare HPF (Negative) 01/01/20 10:16 Urine Crystals Negative HPF (Negative) 01/01/20 10:16 Urine Bacteria Rare HPF (Negative) 01/01/20 10:16 Urine Casts Negative LPF (Negative) 01/01/20 10:16 Urine Mucus Trace (Negative) 01/01/20 10:16 Ur Culture Indicated? No 01/01/20 10:16 Ur Random Creatinine 512.65 mg/dL 12/27/19 11:43 Ur Random Sodium 3 mmol/L 12/27/19 11:43 Urine Glucose 250 mg/dL (Negative) H 01/01/20 10:16 Vancomycin Trough 22.0 ug/mL (10.0-20.0) H* 01/02/20 15:07 COVID-19 PCR Negative (Negative) 12/26/19 00:55 Nasopharyn COVID-19 PCR Not Applicable 12/26/19 00:55 Path Cons Comment 01/01/20 06:25 Ref Test Perform Site [facility] 12/26/19 00:55
--- NOTE | 2020-01-03 16:13 | W.INDIABCONS ---
Date of service: 01/03/20 Time of Service: 15:00 Diabetes Inpatient Consult DESCRIPTION/ASSESSMENT: 49 y/o male with MD consult for Diabetes education. Patient has Hx ETOH abuse , admitted for abd pain r/t pancreatitis resulting in elevated BG levels. INTERVENTION: : Provided education on DM including Hyper/hypoglycemia s/s with action plan for each scenario. Definition and types of CHO with examples, CHO counting, DASH diet materials, DM meal planning and label reading literature. Provided a blood sugar and food record chart and materials to reiterate CHO counting techniques. Reviewed desirable BG levels with patient for food choices and portions for optimal outcomes. Provided contact information for this RD and encouraged him to call with any f/u questions r/t to DM self management. CDM from kitchen has been helping to count CHO's and achieve intake of ~65g/CHO per meal period. Educated patient on proper use of glucometer and he was able to perform this task successfully. The reading was 181~ 3 hrs post prandial. PLAN: Diogo will work with hospital MD and PCP to determine appropriate insulin type, dosage and sliding scale. Diogo will obtain referral from PCP for further outpatient education to review BG tracking, trends, meal planning and self management. Time Spent in Nutritional Counseling and Treatment: 20min
[2020-01-03 16:42] VITALS: BP 154/91; PULSE 100; RESP 20; TEMP 37; O2SAT 97
[2020-01-03] MEDS: Acetaminophen 500 MG TAB 1000 MG PO (16:45)
[2020-01-03] MEDS: Lidocaine 5% Patch 2 PATCH TP (17:16)
--- NOTE | 2020-01-03 18:46 | W.PM.PROGNOT ---
Date of Service Date of service: 01/03/20 Time of Service: 18:47 Assessment and Plan Assessment and plan (1) Acute necrotizing pancreatitis: Status: Acute Assessment and plan: With likely infected peripancreatic phlegmon. Clinically steadily improving. Per general surgery, no surgical intervention is recommended at this time. Continue empiric primaxin (day 7). Continue. Continue to trend CRP and procalcitonin. Procalcitonin and CRP today are both much better. Continue regular diet. (2) SIRS (systemic inflammatory response syndrome): Status: Acute Assessment and plan: Sources: pancreatitis +/- developing pancreatic infection, atelectasis, +/- PNA. I am not convinced he has pneumonia Continue vancomycin (day 4), Continue primaxin (day 7). Encourage IS. venous doppler negative for DVT (3) Atelectasis of both lungs: Status: Acute Assessment and plan: As above. Encourage IS. (4) Alcohol abuse: Status: Chronic Assessment and plan: Latest CIWA scores have been zero. No longer at risk for withdrawal - CIWA d/c'ed. Continue MVI, thiamine. (5) Elevated blood pressure reading: Status: Chronic Assessment and plan: Pain control Continue salt restriction. Control pain. (6) Acute kidney injury: Status: Resolved Assessment and plan: ? Prerenal vs ATN. Doing OK off of IVF at this time. (7) Hyperglycemia: Status: Acute Assessment and plan: A1C 5.6. Continue carb restriction. Continue SSI. (8) Hyperkalemia: Status: Resolved Assessment and plan: Recheck in am. (9) Hypokalemia: Status: Resolved Assessment and plan: Recheck in am (10) Hypocalcemia: Status: Resolved Assessment and plan: Recheck in am. (11) Discharge planning issues: Status: Acute Assessment and plan: Full code Continues to require hospitalization with low threshold to transfer to ICU/tertiary care facility (12) DVT prophylaxis: Status: Acute Assessment and plan: SC heparin Subjective Subjective Interval history since last seen: Mr Barba states that his abdominal pain is feeling better, but he gets full very quickly when he eats. Denies dizziness, chest pain, shortness of breath, nausea. Still has a lot of back pain. Tolerating regular consistency food. Exam Narrative Exam Narrative: General: Very pleasant obese male, A&Ox3, Looks less edematous today HEENT: EOMI, MMM Heart: RRR, no m/r/g Lungs: quiet rales at B bases, excellent aeration Abdomen: distended, soft, not tender Extremities: +1 BLE edema, better, wearing TEDs Objective Objective Clinical Data: Abnormal lab results 01/03/20 01/03/20 01/03/20 Range/Units 06:45 06:45 15:50 WBC 16.60 H (4.4-10.8) k/cumm RBC 3.62 L (4.50-6.00) m/cumm Hgb 11.8 L (13.5-17.5) g/dL Hct 34.8 L (40.0-50.0) % MCV 96.1 H (80-95) fL Plt Count 491 H (130-400) x1000/uL Absolute Neutrophils 12.95 H (1.2-6.7) k/cumm Absolute Monocytes 1.66 H (0.11-0.7) k/cumm Sodium 135 L (136-145) mmol/L Glucose 192 H (74-106) mg/dL C-Reactive Protein 21.91 H (0.0-0.3) mg/dL Vancomycin Trough 26.0 H* (10.0-20.0) ug/mL Vital Signs Temperature 37.0 C 01/03/20 16:42 Temperature Source Tympanic 01/03/20 16:42 Pulse 100 H 01/03/20 16:42 Pulse Rhythm Regular 01/03/20 00:00 Pulse 112 H 12/26/19 08:17 Respiratory Rate 20 01/03/20 16:42 Respiratory Effort Non-Labored 01/03/20 00:00 Respiratory Depth Normal 01/03/20 00:00 Respiratory Pattern Normal 01/03/20 00:00 Blood Pressure 154/91 H 01/03/20 16:42 Blood Pressure Mean 106 12/26/19 08:17 Pulse Oximetry 97 01/03/20 16:42 Oxygen Delivery Method Room Air 01/03/20 16:42 Oxygen Flow Rate 0 01/03/20 16:42 Pain Level 8 01/03/20 16:45 Comment 01/03/20 03:30 Intake & Output 01/02/20 01/03/20 01/03/20 23:59 11:59 23:59 Intake Total 650 / 1550 1034.308 / 1815.308 781 / 1815.308 Output Total 1650 / 2750 1550 / 2450 900 / 2450 Balance -1000 / -1200 -515.692 / -634.692 -119 / -634.692 Intake: IV 650 / 1190 554.308 / 855.308 301 / 855.308 Oral 480 / 960 480 / 960 Output: Urine 1650 / 2750 1550 / 2450 900 / 2450 Other: Urine Color Yellow Yellow Yellow Urine Appearance Clear Clear Clear Urine Odor Normal None None Comment Void x1 in the urinal. Void x1 in the urinal. Voiding Methods Toilet Urinal Urinal Urinal Laboratory Results WBC 16.60 k/cumm (4.4-10.8) H 01/03/20 06:45 RBC 3.62 m/cumm (4.50-6.00) L 01/03/20 06:45 Hgb 11.8 g/dL (13.5-17.5) L 01/03/20 06:45 Hct 34.8 % (40.0-50.0) L 01/03/20 06:45 MCV 96.1 fL (80-95) H 01/03/20 06:45 MCH 32.6 pg (27.0-33.0) 01/03/20 06:45 MCHC 33.9 g/dL (32.0-36.0) 01/03/20 06:45 RDW 13.3 % (11.8-14.1) 01/03/20 06:45 Plt Count 491 x1000/uL (130-400) H 01/03/20 06:45 MPV 10.0 fL (8.0-11.0) 01/03/20 06:45 Immature Gran % See Differential 01/03/20 06:45 Neutrophils % 78.0 01/03/20 06:45 Band Neutrophils % 20.0 % 01/01/20 06:25 Lymphocytes % 9.0 01/03/20 06:45 Atypical Lymphs % 2 12/31/19 06:17 Monocytes % 10.0 01/03/20 06:45 Eosinophils % 1.0 01/03/20 06:45 Basophils % 0.0 01/03/20 06:45 Metamyelocytes % 1.0 % 01/03/20 06:45 Myelocytes % 1.0 % 01/03/20 06:45 Absolute Neutrophils 12.95 k/cumm (1.2-6.7) H 01/03/20 06:45 Absolute Lymphocytes 1.49 k/cumm (1.2-3.4) 01/03/20 06:45 Absolute Monocytes 1.66 k/cumm (0.11-0.7) H 01/03/20 06:45 Absolute Eosinophils 0.17 k/cumm (0.0-0.7) 01/03/20 06:45 Absolute Basophils 0.00 k/cumm (0.0-0.2) 01/03/20 06:45 Differential Comment Manual differential 01/03/20 06:45 RBC Morphology See below 01/03/20 06:45 Polychromasia Present 01/03/20 06:45 Anisocytosis 1+ 01/01/20 06:25 VBG pH 7.33 (7.35-7.45) L 12/26/19 17:00 VBG pCO2 40 mm/Hg (34-47) 12/26/19 17:00 VBG pO2 37 mm/Hg (28-44) 12/26/19 17:00 VBG HCO3 Not Applicable 12/26/19 17:00 VBG Total CO2 Not Applicable 12/26/19 17:00 VBG O2 Saturation Not Applicable 12/26/19 17:00 VBG Base Excess Not Applicable 12/26/19 17:00 Sodium 135 mmol/L (136-145) L 01/03/20 06:45 Potassium 3.8 mmol/L (3.5-5.1) 01/03/20 06:45 Chloride 99 mmol/L (98-107) 01/03/20 06:45 Carbon Dioxide 29.0 mmol/L (21.0-32.0) 01/03/20 06:45 Anion Gap 7.0 mmol/L (3-11) 01/03/20 06:45 BUN 10 mg/dL (7-18) 01/03/20 06:45 Creatinine 1.11 mg/dL (0.70-1.30) 01/03/20 06:45 Estimated GFR/1.73 m2 >= 60.00 (mL/min/1.73m2) 01/03/20 06:45 Glucose 192 mg/dL (74-106) H 01/03/20 06:45 Calcium 8.5 mg/dL (8.5-10.1) 01/03/20 06:45 Ionized Calcium 0.90 mmol/L (1.12-1.32) L 12/27/19 14:01 Magnesium 2.0 mg/dL (1.8-2.4) 01/03/20 06:45 Total Bilirubin 0.6 mg/dL (0.2-1.0) 01/01/20 06:25 Conjugated Bilirubin 0.27 mg/dL (0.00-0.20) H 01/01/20 06:25 AST 38 U/L (15-37) H 01/01/20 06:25 ALT 31 U/L (16-63) 01/01/20 06:25 Alkaline Phosphatase 229 U/L (46-116) H 01/01/20 06:25 C-Reactive Protein 21.91 mg/dL (0.0-0.3) H 01/03/20 06:45 Total Protein 6.1 g/dL (6.4-8.2) L 01/01/20 06:25 Albumin 1.9 g/dL (3.4-5.0) L 01/01/20 06:25 Lipase 137 U/L (73-393) 01/02/20 06:10 Procalcitonin 1.8 ng/mL 01/03/20 06:45 Urine Color Yellow (Yellow) 01/01/20 10:16 Urine Clarity Clear (Clear) 01/01/20 10:16 Urine pH 7.5 (5-8) 01/01/20 10:16 Ur Specific [place] 1.020 (1.005-1.025) 01/01/20 10:16 Urine Protein Trace mg/dL (Negative) H 01/01/20 10:16 Urine Ketones 15 mg/dL (Negative) H 01/01/20 10:16 Urine Blood Negative (Negative) 01/01/20 10:16 Urine Nitrite Negative (Negative) 01/01/20 10:16 Urine Bilirubin Negative (Negative) 01/01/20 10:16 Urine Urobilinogen 0.2 EU/dL (Up TO 0.2) 01/01/20 10:16 Ur Leukocyte Esterase Negative (Negative) 01/01/20 10:16 Urine RBC 0-2 HPF (0-2) 01/01/20 10:16 Urine WBC 0-2 HPF (0-5) 01/01/20 10:16 Ur Epithelial Cells Rare HPF (Negative) 01/01/20 10:16 Urine Crystals Negative HPF (Negative) 01/01/20 10:16 Urine Bacteria Rare HPF (Negative) 01/01/20 10:16 Urine Casts Negative LPF (Negative) 01/01/20 10:16 Urine Mucus Trace (Negative) 01/01/20 10:16 Ur Culture Indicated? No 01/01/20 10:16 Ur Random Creatinine 512.65 mg/dL 12/27/19 11:43 Ur Random Sodium 3 mmol/L 12/27/19 11:43 Urine Glucose 250 mg/dL (Negative) H 01/01/20 10:16 Vancomycin Trough 26.0 ug/mL (10.0-20.0) H* 01/03/20 15:50 COVID-19 PCR Negative (Negative) 12/26/19 00:55 Nasopharyn COVID-19 PCR Not Applicable 12/26/19 00:55 Path Cons Comment 01/01/20 06:25 Ref Test Perform Site [place] [facility] 12/26/19 00:55
[2020-01-03 19:59] VITALS: BP 149/91; PULSE 92; RESP 20; TEMP 37.3; O2SAT 100
[2020-01-03] MEDS: Zolpidem 5 MG TAB PO (22:05)
[2020-01-03 23:57] VITALS: BP 137/83; PULSE 89; RESP 20; TEMP 36.3; O2SAT 97
[2020-01-04] MEDS: Heparin 5,000 UNITS/ML VIAL 5000 UNITS SC ×3 (01:57→16:26)
[2020-01-04] MEDS: HYDROmorphone 2 MG/ML VIAL IVP ×8 (02:05→21:54)
[2020-01-04] MEDS: IMIPENEM/CILASTATIN 500 MG in Normal Saline 100 ML 200 MG IVPB ×4 (05:11→21:51)
[2020-01-04] MEDS: Lidocaine Patch Removal 2 EACH TP (05:11)
[2020-01-04 07:06] LABS: Abs Immature Grans 0.22 k/cumm (0.0-0.09); Absolute Basophil Count 0.03 k/cumm (0.0-0.2); Absolute Eosinophil Count 0.22 k/cumm (0.0-0.7); Absolute Lymphocyte Count 1.49 k/cumm (1.2-3.4); Absolute Monocyte Count 1.15 k/cumm (0.11-0.7); Absolute Neutrophil Count 9.94 k/cumm (1.2-6.7); Basophils % 0.2; Eosinophils % 1.7; HCT 34.8 % (40.0-50.0); HGB 11.5 g/dL (13.5-17.5); Immature Grans % 1.7 %; Lymphocytes % 11.4; Mean Corpuscular Volume 96.9 fL (80-95); Mean Platelet Volume 10.2 fL (8.0-11.0); Monocytes % 8.8; Neutrophils % 76.2; Platelet Count 524 x1000/uL (130-400); RBC 3.59 m/cumm (4.50-6.00); RBC Distribution Width 13.3 % (11.8-14.1); White Blood Cell Count 13.05 k/cumm (4.4-10.8)
[2020-01-04 07:21] LABS: ALT 31 U/L (16-63); AST 31 U/L (15-37); Alkaline Phosphatase 344 U/L (46-116); Anion Gap 5.7 mmol/L (3-11); BUN 8 mg/dL (7-18); Bilirubin, Direct 0.23 mg/dL (0.00-0.20); Bilirubin, Total 0.6 mg/dL (0.2-1.0); C-Reactive Protein 18.53 mg/dL (0.0-0.3); CO2 30.3 mmol/L (21.0-32.0); CREATININE 1.04 mg/dL (0.70-1.30); Calcium 8.5 mg/dL (8.5-10.1); Chloride 98 mmol/L (98-107); Glucose 172 mg/dL (74-106); Potassium 3.8 mmol/L (3.5-5.1); Sodium 134 mmol/L (136-145); Total Protein 6.4 g/dL (6.4-8.2)
[2020-01-04] MEDS: Creon, Lipase 6,000 CAPCR 1 CAP PO ×3 (07:47→16:25)
[2020-01-04] MEDS: Dicyclomine 10 MG CAP PO (07:47)
[2020-01-04] MEDS: Pantoprazole 40 MG TABCR PO (07:47)
[2020-01-04] MEDS: Lactobacillus Acidophilus CAP 1 CAP PO ×3 (07:47→19:35)
[2020-01-04] MEDS: Cyclobenzaprine 10 MG TAB PO ×2 (07:47→17:02)
[2020-01-04] MEDS: Multivitamin TAB 1 TAB PO (07:47)
[2020-01-04] MEDS: Furosemide 20 MG TAB PO (07:47)
[2020-01-04] MEDS: Thiamine 100 MG TAB PO (07:47)
[2020-01-04] MEDS: Potassium Chloride 20 MEQ TABCR 40 MEQ PO (07:47)
[2020-01-04] MEDS: Acetaminophen 500 MG TAB 1000 MG PO ×2 (07:48→16:25)
[2020-01-04] MEDS: Nicotine 21 MG/24 HR PATCH TD (07:48)
[2020-01-04] MEDS: Normal Saline Flush 10 ML SYR IVP ×7 (07:49→21:52)
[2020-01-04] MEDS: Insulin Aspart 300 UNITS/3 ML PEN SC ×4 (08:15→21:53)
[2020-01-04 08:17] VITALS: BP 141/86; PULSE 109; RESP 16; TEMP 37.1; O2SAT 98
[2020-01-04] MEDS: Normal Saline 500 ML 30 ML IV (10:47)
--- NOTE | 2020-01-04 12:13 | PGE_ITS ---
Date of Service Date of service: 01/04/20 Time of Service: 12:13 Assessment and Plan Assessment and plan (1) Acute necrotizing pancreatitis: Status: Acute Assessment and plan: His WBC is improving and he is clinically as well Will sign off for now, please contact if any new concerns arise. Subjective Subjective Interval history since last seen: No changes Continues to tolerate PO Feels that the edema is slowly improving, still taking pain meds every few hours. Exam Narrative Exam Narrative: No acute distress Abdomen soft, minimal epigastric tenderness Objective Objective Clinical Data: Abnormal lab results 01/03/20 01/04/20 01/04/20 Range/Units 15:50 06:00 06:00 WBC 13.05 H (4.4-10.8) k/cumm RBC 3.59 L (4.50-6.00) m/cumm Hgb 11.5 L (13.5-17.5) g/dL Hct 34.8 L (40.0-50.0) % MCV 96.9 H (80-95) fL Plt Count 524 H (130-400) x1000/uL Absolute Neutrophils 9.94 H (1.2-6.7) k/cumm Absolute Monocytes 1.15 H (0.11-0.7) k/cumm Sodium 134 L (136-145) mmol/L Glucose 172 H (74-106) mg/dL Conjugated Bilirubin 0.23 H (0.00-0.20) mg/dL Alkaline Phosphatase 344 H (46-116) U/L C-Reactive Protein 18.53 H (0.0-0.3) mg/dL Albumin 2.0 L (3.4-5.0) g/dL Vancomycin Trough 26.0 H* (10.0-20.0) ug/mL Vital Signs Temperature 98.8 F 01/04/20 08:17 Temperature Source Tympanic 01/03/20 23:57 Pulse 109 H 01/04/20 08:17 Pulse Rhythm Regular 01/03/20 07:30 Pulse 112 H 12/26/19 08:17 Respiratory Rate 16 01/04/20 08:17 Respiratory Effort Non-Labored 01/03/20 07:30 Respiratory Depth Normal 01/03/20 07:30 Respiratory Pattern Normal 01/03/20 07:30 Blood Pressure 141/86 H 01/04/20 08:17 Blood Pressure Mean 106 12/26/19 08:17 Pulse Oximetry 98 01/04/20 08:17 Oxygen Delivery Method Room Air 01/04/20 08:17 Oxygen Flow Rate 0 01/04/20 08:17 Pain Level 6 01/04/20 10:48 Comment 01/03/20 03:30 Intake & Output 01/03/20 01/04/20 01/04/20 23:59 11:59 23:59 Intake Total 1361.5 / 2395.808 200.5 / 200.5 Output Total 1999 / 3550 700 / 700 Balance -638.5 / -1154.192 -499.5 / -499.5 Intake: IV 641.5 / 1195.808 200.5 / 200.5 Oral 720 / 1200 Output: Urine 19990 700 / 700 Other: Urine Color Yellow Yellow Urine Appearance Clear Clear Urine Odor Normal Normal Comment Void x1 in the urinal. Void x1 in the urinal. Voiding Methods Urinal Urinal Laboratory Results WBC 13.05 k/cumm (4.4-10.8) H 01/04/20 06:00 RBC 3.59 m/cumm (4.50-6.00) L 01/04/20 06:00 Hgb 11.5 g/dL (13.5-17.5) L 01/04/20 06:00 Hct 34.8 % (40.0-50.0) L 01/04/20 06:00 MCV 96.9 fL (80-95) H 01/04/20 06:00 MCH 32.0 pg (27.0-33.0) 01/04/20 06:00 MCHC 33.0 g/dL (32.0-36.0) 01/04/20 06:00 RDW 13.3 % (11.8-14.1) 01/04/20 06:00 Plt Count 524 x1000/uL (130-400) H 01/04/20 06:00 MPV 10.2 fL (8.0-11.0) 01/04/20 06:00 Immature Gran % 1.7 % 01/04/20 06:00 Neutrophils % 76.2 01/04/20 06:00 Band Neutrophils % 20.0 % 01/01/20 06:25 Lymphocytes % 11.4 01/04/20 06:00 Atypical Lymphs % 2 12/31/19 06:17 Monocytes % 8.8 01/04/20 06:00 Eosinophils % 1.7 01/04/20 06:00 Basophils % 0.2 01/04/20 06:00 Metamyelocytes % 1.0 % 01/03/20 06:45 Myelocytes % 1.0 % 01/03/20 06:45 Absolute Neutrophils 9.94 k/cumm (1.2-6.7) H 01/04/20 06:00 Absolute Lymphocytes 1.49 k/cumm (1.2-3.4) 01/04/20 06:00 Absolute Monocytes 1.15 k/cumm (0.11-0.7) H 01/04/20 06:00 Absolute Eosinophils 0.22 k/cumm (0.0-0.7) 01/04/20 06:00 Absolute Basophils 0.03 k/cumm (0.0-0.2) 01/04/20 06:00 Differential Comment Manual differential 01/03/20 06:45 RBC Morphology See below 01/03/20 06:45 Polychromasia Present 01/03/20 06:45 Anisocytosis 1+ 01/01/20 06:25 VBG pH 7.33 (7.35-7.45) L 12/26/19 17:00 VBG pCO2 40 mm/Hg (34-47) 12/26/19 17:00 VBG pO2 37 mm/Hg (28-44) 12/26/19 17:00 VBG HCO3 Not Applicable 12/26/19 17:00 VBG Total CO2 Not Applicable 12/26/19 17:00 VBG O2 Saturation Not Applicable 12/26/19 17:00 VBG Base Excess Not Applicable 12/26/19 17:00 Sodium 134 mmol/L (136-145) L 01/04/20 06:00 Potassium 3.8 mmol/L (3.5-5.1) 01/04/20 06:00 Chloride 98 mmol/L (98-107) 01/04/20 06:00 Carbon Dioxide 30.3 mmol/L (21.0-32.0) 01/04/20 06:00 Anion Gap 5.7 mmol/L (3-11) 01/04/20 06:00 BUN 8 mg/dL (7-18) 01/04/20 06:00 Creatinine 1.04 mg/dL (0.70-1.30) 01/04/20 06:00 Estimated GFR/1.73 m2 >= 60.00 (mL/min/1.73m2) 01/04/20 06:00 Glucose 172 mg/dL (74-106) H 01/04/20 06:00 Calcium 8.5 mg/dL (8.5-10.1) 01/04/20 06:00 Ionized Calcium 0.90 mmol/L (1.12-1.32) L 12/27/19 14:01 Magnesium 2.0 mg/dL (1.8-2.4) 01/04/20 06:00 Total Bilirubin 0.6 mg/dL (0.2-1.0) 01/04/20 06:00 Conjugated Bilirubin 0.23 mg/dL (0.00-0.20) H 01/04/20 06:00 AST 31 U/L (15-37) 01/04/20 06:00 ALT 31 U/L (16-63) 01/04/20 06:00 Alkaline Phosphatase 344 U/L (46-116) H 01/04/20 06:00 C-Reactive Protein 18.53 mg/dL (0.0-0.3) H 01/04/20 06:00 Total Protein 6.4 g/dL (6.4-8.2) 01/04/20 06:00 Albumin 2.0 g/dL (3.4-5.0) L 01/04/20 06:00 Lipase 137 U/L (73-393) 01/02/20 06:10 Procalcitonin 1.8 ng/mL 01/03/20 06:45 Urine Color Yellow (Yellow) 01/01/20 10:16 Urine Clarity Clear (Clear) 01/01/20 10:16 Urine pH 7.5 (5-8) 01/01/20 10:16 Ur Specific [place] 1.020 (1.005-1.025) 01/01/20 10:16 Urine Protein Trace mg/dL (Negative) H 01/01/20 10:16 Urine Ketones 15 mg/dL (Negative) H 01/01/20 10:16 Urine Blood Negative (Negative) 01/01/20 10:16 Urine Nitrite Negative (Negative) 01/01/20 10:16 Urine Bilirubin Negative (Negative) 01/01/20 10:16 Urine Urobilinogen 0.2 EU/dL (Up TO 0.2) 01/01/20 10:16 Ur Leukocyte Esterase Negative (Negative) 01/01/20 10:16 Urine RBC 0-2 HPF (0-2) 01/01/20 10:16 Urine WBC 0-2 HPF (0-5) 01/01/20 10:16 Ur Epithelial Cells Rare HPF (Negative) 01/01/20 10:16 Urine Crystals Negative HPF (Negative) 01/01/20 10:16 Urine Bacteria Rare HPF (Negative) 01/01/20 10:16 Urine Casts Negative LPF (Negative) 01/01/20 10:16 Urine Mucus Trace (Negative) 01/01/20 10:16 Ur Culture Indicated? No 01/01/20 10:16 Ur Random Creatinine 512.65 mg/dL 12/27/19 11:43 Ur Random Sodium 3 mmol/L 12/27/19 11:43 Urine Glucose 250 mg/dL (Negative) H 01/01/20 10:16 Vancomycin Trough 26.0 ug/mL (10.0-20.0) H* 01/03/20 15:50 COVID-19 PCR Negative (Negative) 12/26/19 00:55 Nasopharyn COVID-19 PCR Not Applicable 12/26/19 00:55 Path Cons Comment 01/01/20 06:25 Ref Test Perform Site [facility] 12/26/19 00:55
[2020-01-04 12:52] VITALS: BP 136/84; PULSE 100; RESP 18; TEMP 37; O2SAT 96
--- NOTE | 2020-01-04 16:05 | W.PM.PROGNOT ---
Date of Service Date of service: 01/04/20 Time of Service: 12:44 Assessment and Plan Assessment and plan (1) Acute necrotizing pancreatitis: Status: Acute Assessment and plan: With likely infected peripancreatic phlegmon. Clinically steadily improving. Per general surgery, no surgical intervention is recommended at this time, surgery signed off. Continue empiric primaxin (day 8). White blood cell count is improving. I do not see the need to follow daily inflammatory markers if clinical improvement continues.. Continue regular diet. (2) SIRS (systemic inflammatory response syndrome): Status: Acute Assessment and plan: Sources: pancreatitis +/- developing pancreatic infection, atelectasis, +/- PNA. Not totally clear he had pneumonia, but being covered with vancomycin addition to Primaxin. Continue vancomycin (day 5), Continue primaxin (day 8). Encourage IS. venous doppler negative for DVT (3) Atelectasis of both lungs: Status: Acute Assessment and plan: As above. Encourage IS. (4) Alcohol abuse: Status: Chronic Assessment and plan: No longer at risk for withdrawal - [place] d/c'ed. Continue MVI, thiamine. Support sobriety and discuss treatment options upon discharge. (5) Elevated blood pressure reading: Status: Chronic Assessment and plan: Is normalized, continue pain treatment. (6) Acute kidney injury: Status: Resolved Assessment and plan: Prerenal, resolved. (7) Hyperglycemia: Status: Acute Assessment and plan: A1C 5.6, with diabetes. Continue carb restriction. Continue SSI for acute coverage. (8) Hypocalcemia: Status: Resolved Assessment and plan: Normalized. Was in fact normal previously using corrected calcium. (9) Discharge planning issues: Status: Acute Assessment and plan: Full code Continues to require hospitalization, but may be ready for discharge in a day or 2 decrease the need for pain medications and see continued improvement inflammatory markers. (10) DVT prophylaxis: Status: Acute Assessment and plan: SC heparin Subjective Subjective Patient reports: no new complaints, feels better and tolerating a regular diet; denies diarrhea, nausea, vomiting, shortness of breath and fever Interval history since last seen: 24 hr: No events Overall pain feels much better. He has been eating for the last 2 to 3 days without difficulty. He still has significant pain in both flanks, more in the left, that he attributes to the edema. Dilaudid helps, but he is waking up multiple times overnight needing additional Dilaudid. His oxycodone adequate for pain. Exam Narrative Exam Narrative: General: Very pleasant obese male, A&Ox3 HEENT: EOMI, MMM Heart: RRR, no m/r/g Lungs: quiet rales at B bases, improved with deep inspiration excellent aeration Abdomen: distended, soft, not tender lateral abdomen above hip more on left, skin feels slightly edematous still. Bruising or other skin changes noted. Extremities: Trace bilateral edema, legs nontender. Objective Objective Clinical Data: Abnormal lab results 01/03/20 01/04/20 01/04/20 Range/Units 15:50 06:00 06:00 WBC 13.05 H (4.4-10.8) k/cumm RBC 3.59 L (4.50-6.00) m/cumm Hgb 11.5 L (13.5-17.5) g/dL Hct 34.8 L (40.0-50.0) % MCV 96.9 H (80-95) fL Plt Count 524 H (130-400) x1000/uL Absolute Neutrophils 9.94 H (1.2-6.7) k/cumm Absolute Monocytes 1.15 H (0.11-0.7) k/cumm Sodium 134 L (136-145) mmol/L Glucose 172 H (74-106) mg/dL Conjugated Bilirubin 0.23 H (0.00-0.20) mg/dL Alkaline Phosphatase 344 H (46-116) U/L C-Reactive Protein 18.53 H (0.0-0.3) mg/dL Albumin 2.0 L (3.4-5.0) g/dL Vancomycin Trough 26.0 H* (10.0-20.0) ug/mL Vital Signs Temperature 37 C 01/04/20 12:52 Temperature Source Tympanic 01/04/20 12:52 Pulse 100 H 01/04/20 12:52 Pulse Rhythm Regular 01/03/20 07:30 Pulse 112 H 12/26/19 08:17 Respiratory Rate 18 01/04/20 12:52 Respiratory Effort Non-Labored 01/03/20 07:30 Respiratory Depth Normal 01/03/20 07:30 Respiratory Pattern Normal 01/03/20 07:30 Blood Pressure 136/84 01/04/20 12:52 Blood Pressure Mean 106 12/26/19 08:17 Pulse Oximetry 96 01/04/20 12:52 Oxygen Delivery Method Room Air 01/04/20 12:52 Oxygen Flow Rate 0 01/04/20 12:52 Pain Level 0 01/04/20 15:15 Comment 01/04/20 15:15 Intake & Output 01/03/20 01/04/20 01/04/20 23:59 11:59 23:59 Intake Total 1361.5 / 2395.808 300.5 / 1228.0 927.5 / 1228.0 Output Total 1999 / 3550 700 / 1375 675 / 1375 Balance -638.5 / -1154.192 -399.5 / -147.0 252.5 / -147.0 Intake: IV 641.5 / 1195.808 300.5 / 748.0 447.5 / 748.0 Oral 720 / 1200 480 / 480 Output: Urine 1999 / 3550 700 / 1375 675 / 1375 Other: Urine Color Yellow Yellow Yellow Urine Appearance Clear Clear Clear Urine Odor Normal Normal Normal Comment Void x1 in the urinal. Void x1 in the urinal. Void x1 in the urinal. Stool Size Moderate Stool Characteristics Soft Formed Brown Voiding Methods Urinal Urinal Urinal Laboratory Results WBC 13.05 k/cumm (4.4-10.8) H 01/04/20 06:00 RBC 3.59 m/cumm (4.50-6.00) L 01/04/20 06:00 Hgb 11.5 g/dL (13.5-17.5) L 01/04/20 06:00 Hct 34.8 % (40.0-50.0) L 01/04/20 06:00 MCV 96.9 fL (80-95) H 01/04/20 06:00 MCH 32.0 pg (27.0-33.0) 01/04/20 06:00 MCHC 33.0 g/dL (32.0-36.0) 01/04/20 06:00 RDW 13.3 % (11.8-14.1) 01/04/20 06:00 Plt Count 524 x1000/uL (130-400) H 01/04/20 06:00 MPV 10.2 fL (8.0-11.0) 01/04/20 06:00 Immature Gran % 1.7 % 01/04/20 06:00 Neutrophils % 76.2 01/04/20 06:00 Band Neutrophils % 20.0 % 01/01/20 06:25 Lymphocytes % 11.4 01/04/20 06:00 Atypical Lymphs % 2 12/31/19 06:17 Monocytes % 8.8 01/04/20 06:00 Eosinophils % 1.7 01/04/20 06:00 Basophils % 0.2 01/04/20 06:00 Metamyelocytes % 1.0 % 01/03/20 06:45 Myelocytes % 1.0 % 01/03/20 06:45 Absolute Neutrophils 9.94 k/cumm (1.2-6.7) H 01/04/20 06:00 Absolute Lymphocytes 1.49 k/cumm (1.2-3.4) 01/04/20 06:00 Absolute Monocytes 1.15 k/cumm (0.11-0.7) H 01/04/20 06:00 Absolute Eosinophils 0.22 k/cumm (0.0-0.7) 01/04/20 06:00 Absolute Basophils 0.03 k/cumm (0.0-0.2) 01/04/20 06:00 Differential Comment Manual differential 01/03/20 06:45 RBC Morphology See below 01/03/20 06:45 Polychromasia Present 01/03/20 06:45 Anisocytosis 1+ 01/01/20 06:25 VBG pH 7.33 (7.35-7.45) L 12/26/19 17:00 VBG pCO2 40 mm/Hg (34-47) 12/26/19 17:00 VBG pO2 37 mm/Hg (28-44) 12/26/19 17:00 VBG HCO3 Not Applicable 12/26/19 17:00 VBG Total CO2 Not Applicable 12/26/19 17:00 VBG O2 Saturation Not Applicable 12/26/19 17:00 VBG Base Excess Not Applicable 12/26/19 17:00 Sodium 134 mmol/L (136-145) L 01/04/20 06:00 Potassium 3.8 mmol/L (3.5-5.1) 01/04/20 06:00 Chloride 98 mmol/L (98-107) 01/04/20 06:00 Carbon Dioxide 30.3 mmol/L (21.0-32.0) 01/04/20 06:00 Anion Gap 5.7 mmol/L (3-11) 01/04/20 06:00 BUN 8 mg/dL (7-18) 01/04/20 06:00 Creatinine 1.04 mg/dL (0.70-1.30) 01/04/20 06:00 Estimated GFR/1.73 m2 >= 60.00 (mL/min/1.73m2) 01/04/20 06:00 Glucose 172 mg/dL (74-106) H 01/04/20 06:00 Calcium 8.5 mg/dL (8.5-10.1) 01/04/20 06:00 Ionized Calcium 0.90 mmol/L (1.12-1.32) L 12/27/19 14:01 Magnesium 2.0 mg/dL (1.8-2.4) 01/04/20 06:00 Total Bilirubin 0.6 mg/dL (0.2-1.0) 01/04/20 06:00 Conjugated Bilirubin 0.23 mg/dL (0.00-0.20) H 01/04/20 06:00 AST 31 U/L (15-37) 01/04/20 06:00 ALT 31 U/L (16-63) 01/04/20 06:00 Alkaline Phosphatase 344 U/L (46-116) H 01/04/20 06:00 C-Reactive Protein 18.53 mg/dL (0.0-0.3) H 01/04/20 06:00 Total Protein 6.4 g/dL (6.4-8.2) 01/04/20 06:00 Albumin 2.0 g/dL (3.4-5.0) L 01/04/20 06:00 Lipase 137 U/L (73-393) 01/02/20 06:10 Procalcitonin 1.8 ng/mL 01/03/20 06:45 Urine Color Yellow (Yellow) 01/01/20 10:16 Urine Clarity Clear (Clear) 01/01/20 10:16 Urine pH 7.5 (5-8) 06/10/20 10:16 Ur Specific [place] 1.020 (1.005-1.025) 01/01/20 10:16 Urine Protein Trace mg/dL (Negative) H 01/01/20 10:16 Urine Ketones 15 mg/dL (Negative) H 01/01/20 10:16 Urine Blood Negative (Negative) 01/01/20 10:16 Urine Nitrite Negative (Negative) 01/01/20 10:16 Urine Bilirubin Negative (Negative) 01/01/20 10:16 Urine Urobilinogen 0.2 EU/dL (Up TO 0.2) 01/01/20 10:16 Ur Leukocyte Esterase Negative (Negative) 01/01/20 10:16 Urine RBC 0-2 HPF (0-2) 01/01/20 10:16 Urine WBC 0-2 HPF (0-5) 01/01/20 10:16 Ur Epithelial Cells Rare HPF (Negative) 01/01/20 10:16 Urine Crystals Negative HPF (Negative) 01/01/20 10:16 Urine Bacteria Rare HPF (Negative) 01/01/20 10:16 Urine Casts Negative LPF (Negative) 01/01/20 10:16 Urine Mucus Trace (Negative) 01/01/20 10:16 Ur Culture Indicated? No 01/01/20 10:16 Ur Random Creatinine 512.65 mg/dL 12/27/19 11:43 Ur Random Sodium 3 mmol/L 12/27/19 11:43 Urine Glucose 250 mg/dL (Negative) H 01/01/20 10:16 Vancomycin Trough 26.0 ug/mL (10.0-20.0) H* 01/03/20 15:50 COVID-19 PCR Negative (Negative) 12/26/19 00:55 Nasopharyn COVID-19 PCR Not Applicable 12/26/19 00:55 Path Cons Comment 01/01/20 06:25 Ref Test Perform Site [place] [facility] 12/26/19 00:55
[2020-01-04 16:50] VITALS: BP 145/93; PULSE 94; RESP 18; TEMP 37.2
[2020-01-04] MEDS: Dicyclomine 10 MG CAP 20 MG PO (17:02)
--- NOTE | 2020-01-04 17:09 | CMPROGNOTE_ITS ---
- If Service Date Differs Date of service: 01/04/20 Time of Service: 17:10 Care Management Progress Note S/O: Diogo was sitting up in bed eating his lunch when CM met with him. He reported that he was feeling much better, and that Alyx (KELLI) attended to all of his needs yesterday. Per report, he is steadily improving, and will be ready for discharge once the need for pain medications is decreased. CM will continue to follow. A: Diogo is a 49 year old man admitted on 12/26/19 with pancreatitis P: Diogo is being treated for necrotizing pancreatitis. Diogo will need a new glucometer, test strips and diabetes education before discharge. CM discussed this with [employer] yesterday and they informed CM that they would refer the need to their Cloth Washer. CM will continue to support patient and to assess for additional discharge needs. KELLI has confirmed that Diogo is insured with [employer] through his , so Financial Assist will not be necessary. He will likely be discharged home with no services when medically ready.
[2020-01-04] MEDS: Lidocaine 5% Patch 2 PATCH TP (17:40)
[2020-01-04] MEDS: Normal Saline Flush 10 ML SYR 20 ML IVP (19:35)
[2020-01-04] MEDS: VANCOMYCIN 1,000 MG in Normal Saline 250 ML 166.66 MG IVPB (19:36)
[2020-01-04 20:03] VITALS: BP 135/82; PULSE 92; RESP 18; TEMP 37.4; O2SAT 97
[2020-01-04] MEDS: Zolpidem 5 MG TAB PO (21:53)
[2020-01-04 23:48] VITALS: BP 134/86; PULSE 87; RESP 18; TEMP 36.6; O2SAT 99
[2020-01-05] MEDS: HYDROmorphone 2 MG/ML VIAL IVP ×5 (00:04→10:06)
[2020-01-05] MEDS: Normal Saline Flush 10 ML SYR IVP ×9 (00:05→14:25)
[2020-01-05] MEDS: Heparin 5,000 UNITS/ML VIAL 5000 UNITS SC ×4 (00:05→23:25)
[2020-01-05] MEDS: IMIPENEM/CILASTATIN 500 MG in Normal Saline 100 ML 200 MG IVPB ×2 (03:34→10:05)
[2020-01-05 04:10] VITALS: BP 133/83; PULSE 88; RESP 16; TEMP 36.6; O2SAT 98
[2020-01-05] MEDS: VANCOMYCIN 1,000 MG in Normal Saline 250 ML 166.66 MG IVPB ×2 (04:28→11:51)
[2020-01-05] MEDS: Lidocaine Patch Removal 2 EACH TP (05:34)
[2020-01-05 07:11] LABS: Abs Immature Grans 0.35 k/cumm (0.0-0.09); Absolute Basophil Count 0.07 k/cumm (0.0-0.2); Absolute Eosinophil Count 0.28 k/cumm (0.0-0.7); Absolute Lymphocyte Count 1.84 k/cumm (1.2-3.4); Basophils % 0.5; HCT 33.5 % (40.0-50.0); HGB 11.2 g/dL (13.5-17.5); Immature Grans % 2.5 %; Lymphocytes % 13.4; Mean Corp. HGB Concentration 33.4 g/dL (32.0-36.0); Mean Corpuscular Hemoglobin 32.4 pg (27.0-33.0); Mean Corpuscular Volume 96.8 fL (80-95); Mean Platelet Volume 9.9 fL (8.0-11.0); Monocytes % 9.7; Neutrophils % 71.9; Platelet Count 592 x1000/uL (130-400); RBC 3.46 m/cumm (4.50-6.00); RBC Distribution Width 13.2 % (11.8-14.1); White Blood Cell Count 13.76 k/cumm (4.4-10.8)
[2020-01-05 07:12] LABS: Absolute Monocyte Count 1.33 k/cumm (0.11-0.7); Absolute Neutrophil Count 9.89 k/cumm (1.2-6.7)
[2020-01-05 07:48] LABS: Diff Comment Agrees w/ Instrument; RBC Morphology Normal
[2020-01-05 08:02] VITALS: BP 143/91; PULSE 104; RESP 18; TEMP 36.4; O2SAT 99
[2020-01-05] MEDS: Thiamine 100 MG TAB PO (08:22)
[2020-01-05] MEDS: Lactobacillus Acidophilus CAP 1 CAP PO ×3 (08:22→20:49)
[2020-01-05] MEDS: Dicyclomine 10 MG CAP 20 MG PO ×3 (08:22→21:48)
[2020-01-05] MEDS: Cyclobenzaprine 10 MG TAB PO ×3 (08:22→21:48)
[2020-01-05] MEDS: Acetaminophen 500 MG TAB 1000 MG PO ×2 (08:22→14:24)
[2020-01-05] MEDS: Multivitamin TAB 1 TAB PO (08:23)
[2020-01-05] MEDS: Pantoprazole 40 MG TABCR PO (08:23)
[2020-01-05] MEDS: Creon, Lipase 6,000 CAPCR 1 CAP PO ×3 (08:23→17:29)
[2020-01-05] MEDS: Potassium Chloride 20 MEQ TABCR 40 MEQ PO (08:23)
[2020-01-05] MEDS: Nicotine 21 MG/24 HR PATCH TD (08:23)
[2020-01-05] MEDS: Furosemide 20 MG TAB PO (08:23)
[2020-01-05] MEDS: Normal Saline Flush 10 ML SYR 20 ML IVP ×2 (08:24→20:49)
[2020-01-05] MEDS: Insulin Aspart 300 UNITS/3 ML PEN SC ×4 (08:25→21:51)
[2020-01-05] MEDS: Normal Saline 500 ML 30 ML IV (10:05)
[2020-01-05 11:26] VITALS: BP 130/82; PULSE 89; RESP 20; TEMP 36.8; O2SAT 95
--- NOTE | 2020-01-05 14:01 | W.PM.PROGNOT ---
Date of Service Date of service: 01/05/20 Time of Service: 14:01 Assessment and Plan Assessment and plan (1) Acute necrotizing pancreatitis: Status: Acute Assessment and plan: With likely infected peripancreatic phlegmon. Clinically much improved the last several days. Per general surgery, no surgical intervention is recommended at this time, surgery signed off. Continue empiric primaxin (day 9). White blood cell count stabilized slightly above normal today after improving. Given the uncertainty regarding infection to begin with and his marked clinical improvement, up the antibiotics today and follow the white count and clinical picture. Continue regular diet. (2) SIRS (systemic inflammatory response syndrome): Status: Acute Assessment and plan: Sources: pancreatitis +/- developing pancreatic infection, atelectasis, +/- PNA. Not totally clear he had pneumonia, but being covered with vancomycin addition to Primaxin. Currently on vancomycin (day 6) and Primaxin (day 9). Stop antibiotics as above today. Encourage IS. venous doppler negative for DVT (3) Alcohol abuse: Status: Chronic Assessment and plan: No longer at risk for withdrawal - [facility] d/c'ed. Continue MVI, thiamine. Support sobriety and discuss treatment options reviewed. He is confident with help of his . He will be able to avoid alcohol.. (4) Acute kidney injury: Status: Resolved Assessment and plan: Prerenal, resolved. (5) Hyperglycemia: Status: Acute Assessment and plan: A1C 5.6, with diabetes, likely over aggressive treatment at home. Continue carb restriction. Continue SSI for acute coverage. (6) Discharge planning issues: Status: Acute Assessment and plan: Full code We will consider discharge tomorrow if clinical picture stable off antibiotics. (7) DVT prophylaxis: Status: Acute Assessment and plan: SC heparin Subjective Subjective Patient reports: no new complaints; denies diarrhea and blood in stool Interval history since last seen: 24 hr: no events Patient continues to eat normally with no nausea or vomiting. Denies any epigastric pain before or after eating. Still has some flank pain on the left. The edema has largely resolved. He was asked for as needed IV Dilaudid, states he takes this primarily for his back because he is less active here and his chronic back pain is worse. He denies fever. Denies cough or shortness of breath. Denies chest pain. Exam Narrative Exam Narrative: General: Very pleasant, A&Ox3, sitting up comfortably eating lunch HEENT: EOMI, MMM Heart: RRR, no m/r/g Lungs: Clear to auscultation bilaterally, normal effort Abdomen: Active bowel sounds, soft, non-distended. Very mild tenderness left lateral abdominal wall to palpation. No bruising or other skin changes noted. Extremities: No edema, nontender. Objective Objective Clinical Data: Abnormal lab results 01/05/20 Range/Units 06:58 WBC 13.76 H (4.4-10.8) k/cumm RBC 3.46 L (4.50-6.00) m/cumm Hgb 11.2 L (13.5-17.5) g/dL Hct 33.5 L (40.0-50.0) % MCV 96.8 H (80-95) fL Plt Count 592 H (130-400) x1000/uL Absolute Neutrophils 9.89 H (1.2-6.7) k/cumm Absolute Monocytes 1.33 H (0.11-0.7) k/cumm Vital Signs Temperature 36.8 C 01/05/20 11:26 Temperature Source Tympanic 01/05/20 11:26 Pulse 89 01/05/20 11:26 Pulse Rhythm Regular 01/05/20 03:40 Pulse 112 H 12/26/19 08:17 Respiratory Rate 20 01/05/20 11:26 Respiratory Effort Non-Labored 01/05/20 03:40 Respiratory Depth Normal 01/05/20 03:40 Respiratory Pattern Normal 01/05/20 03:40 Blood Pressure 130/82 01/05/20 11:26 Blood Pressure Mean 106 12/26/19 08:17 Pulse Oximetry 95 01/05/20 11:26 Oxygen Delivery Method Room Air 01/05/20 11:26 Oxygen Flow Rate 0 01/05/20 11:26 Pain Level 3 01/05/20 11:26 Comment 01/04/20 15:15 Intake & Output 01/04/20 01/05/20 01/05/20 23:59 11:59 23:59 Intake Total 2787.5 / 3918.0 1525.5 / 2005.5 480 / 2005.5 Output Total 2525 / 4225 2025 / 2325 300 / 2325 Balance 262.5 / -307.0 -499.5 / -319.5 180 / -319.5 Intake: IV 1037.5 / 1378.0 495.5 / 495.5 Oral 1750 / 2540 1030 / 1510 480 / 1510 Output: Urine 2525 / 4225 2025 / 2325 300 / 2325 Other: Urine Color Yellow Yellow Yellow Urine Appearance Clear Clear Clear Urine Odor Normal None Comment Void x1 in the urinal. Stool Size Moderate Stool Characteristics Soft Formed Brown Voiding Methods Urinal Urinal Urinal Laboratory Results WBC 13.76 k/cumm (4.4-10.8) H 01/05/20 06:58 RBC 3.46 m/cumm (4.50-6.00) L 01/05/20 06:58 Hgb 11.2 g/dL (13.5-17.5) L 01/05/20 06:58 Hct 33.5 % (40.0-50.0) L 01/05/20 06:58 MCV 96.8 fL (80-95) H 01/05/20 06:58 MCH 32.4 pg (27.0-33.0) 01/05/20 06:58 MCHC 33.4 g/dL (32.0-36.0) 01/05/20 06:58 RDW 13.2 % (11.8-14.1) 01/05/20 06:58 Plt Count 592 x1000/uL (130-400) H 01/05/20 06:58 MPV 9.9 fL (8.0-11.0) 01/05/20 06:58 Immature Gran % 2.5 % 01/05/20 06:58 Neutrophils % 71.9 01/05/20 06:58 Band Neutrophils % 20.0 % 01/01/20 06:25 Lymphocytes % 13.4 01/05/20 06:58 Atypical Lymphs % 2 12/31/19 06:17 Monocytes % 9.7 01/05/20 06:58 Eosinophils % 2.0 01/05/20 06:58 Basophils % 0.5 01/05/20 06:58 Metamyelocytes % 1.0 % 01/03/20 06:45 Myelocytes % 1.0 % 01/03/20 06:45 Absolute Neutrophils 9.89 k/cumm (1.2-6.7) H 01/05/20 06:58 Absolute Lymphocytes 1.84 k/cumm (1.2-3.4) 01/05/20 06:58 Absolute Monocytes 1.33 k/cumm (0.11-0.7) H 01/05/20 06:58 Absolute Eosinophils 0.28 k/cumm (0.0-0.7) 01/05/20 06:58 Absolute Basophils 0.07 k/cumm (0.0-0.2) 01/05/20 06:58 Differential Comment Agrees w/ instrument 01/05/20 06:58 RBC Morphology Normal 01/05/20 06:58 Polychromasia Present 01/03/20 06:45 Anisocytosis 1+ 01/01/20 06:25 VBG pH 7.33 (7.35-7.45) L 12/26/19 17:00 VBG pCO2 40 mm/Hg (34-47) 12/26/19 17:00 VBG pO2 37 mm/Hg (28-44) 12/26/19 17:00 VBG HCO3 Not Applicable 12/26/19 17:00 VBG Total CO2 Not Applicable 12/26/19 17:00 VBG O2 Saturation Not Applicable 12/26/19 17:00 VBG Base Excess Not Applicable 12/26/19 17:00 Sodium 134 mmol/L (136-145) L 01/04/20 06:00 Potassium 3.8 mmol/L (3.5-5.1) 01/04/20 06:00 Chloride 98 mmol/L (98-107) 01/04/20 06:00 Carbon Dioxide 30.3 mmol/L (21.0-32.0) 01/04/20 06:00 Anion Gap 5.7 mmol/L (3-11) 01/04/20 06:00 BUN 8 mg/dL (7-18) 01/04/20 06:00 Creatinine 1.04 mg/dL (0.70-1.30) 01/04/20 06:00 Estimated GFR/1.73 m2 >= 60.00 (mL/min/1.73m2) 01/04/20 06:00 Glucose 172 mg/dL (74-106) H 01/04/20 06:00 Calcium 8.5 mg/dL (8.5-10.1) 01/04/20 06:00 Ionized Calcium 0.90 mmol/L (1.12-1.32) L 12/27/19 14:01 Magnesium 2.0 mg/dL (1.8-2.4) 01/04/20 06:00 Total Bilirubin 0.6 mg/dL (0.2-1.0) 01/04/20 06:00 Conjugated Bilirubin 0.23 mg/dL (0.00-0.20) H 01/04/20 06:00 AST 31 U/L (15-37) 01/04/20 06:00 ALT 31 U/L (16-63) 01/04/20 06:00 Alkaline Phosphatase 344 U/L (46-116) H 01/04/20 06:00 C-Reactive Protein 18.53 mg/dL (0.0-0.3) H 01/04/20 06:00 Total Protein 6.4 g/dL (6.4-8.2) 01/04/20 06:00 Albumin 2.0 g/dL (3.4-5.0) L 01/04/20 06:00 Lipase 137 U/L (73-393) 01/02/20 06:10 Procalcitonin 1.8 ng/mL 01/03/20 06:45 Urine Color Yellow (Yellow) 01/01/20 10:16 Urine Clarity Clear (Clear) 01/01/20 10:16 Urine pH 7.5 (5-8) 01/01/20 10:16 Ur Specific [place] 1.020 (1.005-1.025) 01/01/20 10:16 Urine Protein Trace mg/dL (Negative) H 01/01/20 10:16 Urine Ketones 15 mg/dL (Negative) H 01/01/20 10:16 Urine Blood Negative (Negative) 01/01/20 10:16 Urine Nitrite Negative (Negative) 01/01/20 10:16 Urine Bilirubin Negative (Negative) 01/01/20 10:16 Urine Urobilinogen 0.2 EU/dL (Up TO 0.2) 01/01/20 10:16 Ur Leukocyte Esterase Negative (Negative) 01/01/20 10:16 Urine RBC 0-2 HPF (0-2) 01/01/20 10:16 Urine WBC 0-2 HPF (0-5) 01/01/20 10:16 Ur Epithelial Cells Rare HPF (Negative) 01/01/20 10:16 Urine Crystals Negative HPF (Negative) 01/01/20 10:16 Urine Bacteria Rare HPF (Negative) 01/01/20 10:16 Urine Casts Negative LPF (Negative) 01/01/20 10:16 Urine Mucus Trace (Negative) 01/01/20 10:16 Ur Culture Indicated? No 01/01/20 10:16 Ur Random Creatinine 512.65 mg/dL 12/27/19 11:43 Ur Random Sodium 3 mmol/L 12/27/19 11:43 Urine Glucose 250 mg/dL (Negative) H 01/01/20 10:16 Vancomycin Trough 16.0 ug/mL (10.0-20.0) 01/05/20 11:11 COVID-19 PCR Negative (Negative) 12/26/19 00:55 Nasopharyn COVID-19 PCR Not Applicable 12/26/19 00:55 Path Cons Comment 01/01/20 06:25 Ref Test Perform Site [place] [facility] 12/26/19 00:55
[2020-01-05] MEDS: HYDROmorphone 2 MG TAB PO ×2 (15:59→20:49)
[2020-01-05 16:27] VITALS: BP 133/78; PULSE 110; RESP 20; TEMP 37.5; O2SAT 97
[2020-01-05] MEDS: Lidocaine 5% Patch 2 PATCH TP (17:31)
[2020-01-05] MEDS: oxyCODONE 10 MG TAB PO ×2 (17:41→21:48)
--- NOTE | 2020-01-05 18:24 | PDOC.CMPRO ---
- If Service Date Differs Date of service: 01/05/20 Time of Service: 18:24 Care Management Progress Note S/O: Diogo was reviewed at interdisciplinary rounds. Per report, his edema is improving and he appears to be comfortable. Per MD, his pain regiment will be decreased today, as he will need to have PO meds upon discharge. CM will continue to follow. A: Diogo is a 49 year old man admitted on 12/26/19 with pancreatitis P: Diogo is being treated for necrotizing pancreatitis. Diogo will need a new glucometer, test strips and diabetes education before discharge. CM discussed this with [employer] yesterday and they informed CM that they would refer the need to their Portrait Consultant. CM will continue to support patient and to assess for additional discharge needs. CM has confirmed that Diogo is insured with [employer] through his , so Financial Assist will not be necessary. He will likely be discharged home with no services when medically ready.
[2020-01-05 19:47] VITALS: BP 139/84; PULSE 98; RESP 19; TEMP 37.5; O2SAT 99
[2020-01-05] MEDS: Zolpidem 5 MG TAB PO (21:49)
[2020-01-05 23:19] VITALS: BP 153/94; PULSE 98; RESP 19; TEMP 37.8; O2SAT 98
[2020-01-06] MEDS: oxyCODONE 10 MG TAB PO ×3 (01:51→11:05)
[2020-01-06] MEDS: HYDROmorphone 2 MG TAB PO ×3 (02:01→08:20)
[2020-01-06 04:01] VITALS: BP 142/84; PULSE 89; RESP 19; TEMP 37.1; O2SAT 99
[2020-01-06] MEDS: Lidocaine Patch Removal 2 EACH TP (05:02)
[2020-01-06 07:02] LABS: Abs Immature Grans 0.31 k/cumm (0.0-0.09); Absolute Eosinophil Count 0.24 k/cumm (0.0-0.7); HCT 33.1 % (40.0-50.0); Mean Corp. HGB Concentration 33.2 g/dL (32.0-36.0); Mean Corpuscular Hemoglobin 32.2 pg (27.0-33.0); Mean Corpuscular Volume 96.8 fL (80-95); Platelet Count 682 x1000/uL (130-400); RBC 3.42 m/cumm (4.50-6.00); RBC Distribution Width 13.1 % (11.8-14.1); White Blood Cell Count 12.07 k/cumm (4.4-10.8)
[2020-01-06 07:27] LABS: Absolute Lymphocyte Count 2.05 k/cumm (1.2-3.4); Absolute Monocyte Count 0.97 k/cumm (0.11-0.7); Absolute Neutrophil Count 8.57 k/cumm (1.2-6.7); Diff Comment Manual Differential
[2020-01-06 07:28] LABS: Polychromasia Present
[2020-01-06 07:42] VITALS: BP 131/87; PULSE 88; RESP 17; TEMP 37.4; O2SAT 99
[2020-01-06] MEDS: Heparin 5,000 UNITS/ML VIAL 5000 UNITS SC (08:11)
[2020-01-06] MEDS: Multivitamin TAB 1 TAB PO (08:12)
[2020-01-06] MEDS: Creon, Lipase 6,000 CAPCR 1 CAP PO ×2 (08:12→11:44)
[2020-01-06] MEDS: Pantoprazole 40 MG TABCR PO (08:12)
[2020-01-06] MEDS: Lactobacillus Acidophilus CAP 1 CAP PO ×2 (08:12→13:18)
[2020-01-06] MEDS: Nicotine 21 MG/24 HR PATCH TD (08:12)
[2020-01-06] MEDS: Thiamine 100 MG TAB PO (08:12)
[2020-01-06] MEDS: Insulin Aspart 300 UNITS/3 ML PEN SC ×2 (08:13→11:44)
[2020-01-06] MEDS: Potassium Chloride 20 MEQ TABCR 40 MEQ PO (08:13)
[2020-01-06] MEDS: Normal Saline Flush 10 ML SYR 20 ML IVP (08:15)
[2020-01-06 11:40] VITALS: BP 123/80; PULSE 98; RESP 16; TEMP 37.8; O2SAT 98
[2020-01-06 11:44] VITALS: TEMP 37.8
[2020-01-06] MEDS: Acetaminophen 500 MG TAB 1000 MG PO (11:44)
--- NOTE | 2020-01-06 13:06 | CMPROGNOTE_ITS ---
- If Service Date Differs Date of service: 01/06/20 Time of Service: 13:06 Care Management Progress Note S/O: Diogo was reviewed at interdisciplinary rounds. His WBC continues to be slightly elevated, he has transition to oral antibiotics and oral pain management. Anticipate he will be ready for discharge soon with a outpatient plan for follow up DM management and recovery services. A: Diogo is a 49 year old man admitted on 12/26/19 with pancreatitis and a history of alcohol dependency. P: Diogo will be discharged home when medically ready. He will need new DM supplies upon discharge. He met with DM Educator while inpatient and will benefit from follow up after discharge. CM to offer control and recovery special tactics support and information for when he is ready to follow up after discharge.
[2020-01-06] MEDS: Ciprofloxacin 500 MG TAB PO (13:11)
[2020-01-06] MEDS: metroNIDAZOLE 500 MG TAB PO (13:18)
--- NOTE | 2020-01-06 15:32 | DSE_ITS ---
Date of service: 01/06/20 Time of Service: 15:32 DS: Diagnosis Discharge Diagnosis (1) Acute necrotizing pancreatitis: Status: Acute (2) SIRS (systemic inflammatory response syndrome): Status: Acute (3) Alcohol abuse: Status: Chronic (4) Acute kidney injury: Status: Resolved (5) Hyperglycemia: Status: Acute (6) Discharge planning issues: Status: Acute (7) DVT prophylaxis: Status: Acute Discharge Plan Disposition Patient Disposition: HOME Condition: Good Discharge Details Chief Complaint: Abd Prob Clinical Impression: Pancreatitis Reason For Visit: ACUTE PANCREATITIS Admit Date/Time: 12/26/19 01:21 Admit Provider: Landon Sapp Attending Provider: Landon Sapp Primary Care Provider: Usman Loyola [facility]: 49-year-old male with history of recurrent pancreatitis secondary alcohol use presented with acute epigastric pain and lipase and CT scan consistent with pancreatitis. Patient became febrile with worsening abdominal pain second admission, repeat CT scan showed necrotic tissue. After discussion with [facility] gastroenterology, supportive care was continued with hydration. He was not hypotensive or acidotic. On December 27, Dr. Smith ordered a procalcitonin, which was elevated. She decided start imipenem/cilastin cover possibly infected necrotic pancreatitis. CT was repeated which showed edema and abdominal wall, stable peripancreatic fluid collections and areas of necrosis. Slight interval decrease in abdominal ascites, and slight increase in bilateral pleural effusions and atelectasis versus infiltrates. White blood cell count was also increasing. Decision was made to add vancomycin to cover possible pneumonia. Surgery was consulted but did not feel like surgical intervention was warranted. During this time, the patient was clinically improving in terms of pain and tolerating a regular diet. By the day prior to discharge, the patient had been eating a normal diet without symptoms of pancreatitis for several days. His IV vancomycin and imipenem were stopped. Did not have a fever over the next 24 hours, but temperature got as high as 37.8. His white count continue to improve off antibiotics. He did have some epigastric pain after eating dinner the night before discharge, but this resolved. Decision was made to treat for additional 5 days with oral antibiotics to cover any residual infection of the pancreatic phlegmon. Ciprofloxacin and metronidazole were prescribed. He tolerated the first dose prior to discharge. Plan for CBC to follow white blood cell count and CMP/Mg 1 week after discharge. Patient has significant lower extremity edema and abdominal wall edema as well as scrotal edema. These improved in the 3 to 4 days prior to discharge and were minimal at the time of discharge. Patient continued to request and be treated with IV hydromorphone until the day prior to discharge. He did say the epigastric pain had totally resolved, but he had worse back pain related to sleeping in the hospital bed and not moving around. We did discuss concern for developing an opiate use disorder, even if he is using the medication to treat true pain. I did give him 20 tablets of 10 mg oxycodone, as he was somewhat tolerant to opiates at that point. We discussed he should not expect any continuation of this medication. Patient covered with CIWA scale per alcohol tropical. He did not need medications for alcohol withdrawal. He felt confident he could stay away from alcohol with the support of his . He declined additional medication. Given nicotine replacement, and encouraged to continue off smoking on discharge. Patient had acute kidney injury during acute presentation of pancreatitis, but this resolved Hyperglycemia noted during admission. Blood sugars did get up into the 200s frequently. His A1c was 5.6. He was covered with a sliding scale, but this was not continued upon discharge. Fasting glucose here was 122. We did discuss low carbohydrate diet. Plan is for fasting glucose with labs before follow-up with PCP. Fasting glucose concerning for diabetes, regular monitoring and treatment can be initiated. Home Meds and New Rx's Prescriptions: New multivitamin [Multiple Vitamins] Tablet 1 tab PO DAILY Qty: 90 RF: 0 metronidazole 500 mg Tablet 500 mg PO Q8H Qty: 15 RF: 0 ciprofloxacin HCl 500 mg Tablet 500 mg PO BID 5 Days Qty: 10 RF: 0 acetaminophen [Mapap Extra Strength] 500 mg Tablet 1,000 mg PO Q6H PRN PRNQty: 100 RF: 0 potassium chloride [Klor-Con M20] 20 mEq Tablet,Er Particles/Crystals 40 meq PO DAILY 14 Days Qty: 14 RF: 0 nicotine 21 mg/24 hr Patch 24 Hour 21 mg transdermal DAILY Qty: 30 RF: 2 dicyclomine 10 mg Capsule 20 mg PO QID PRN PRN (Reason: Abdominal Pain) Qty: 120 RF: 0 acidophilus-pectin, citrus 25 million cell -100 mg Tablet 1 cap PO TID Qty: 21 RF: 0 oxycodone 10 mg Tablet 10 mg PO Q4H PRN PRNQty: 20 RF: 0 Creon 6,000-19,000 -30,000 unit Capsule,Delayed Release(Dr/Ec) 1 cap PO QMEALS Qty: 90 RF: 1 Continued omeprazole 40 MG capsule,delayed release(DR/EC) 40 mg PO DAILY Qty: 30 RF: 1 loperamide 2 MG capsule 4 mg PO DAILY PRNRF: 0 tramadol 50 mg tablet 50 mg PO Q8H PRN (Reason: pain) Qty: 7 RF: 0 Discharge Instructions Instructions: Pancreatitis (DC) Additional Instructions: Take the antibiotics, ciprofloxacin and metronidazole, for 5 more days in the evening of January 05. Continue to work on low carbohydrate diet control blood sugar and secretary to the vice president meals to avoid pancreatitis. Avoid all alcohol. Get labs done fasting in the next week prior to seeing your primary healthcare advisory services manager. And follow-up within 1 week with primary care office. Stand Alone Forms: Nursing Discharge Form Activity:: Activity as Tolerated Equipment/Supplies:: Blood Glucose Monitor Diet:: Carb Counting Discharge Orders Discharge Orders: Discharge Order (Routine); Ordered 01/06/20 Ordered By: Tyler Lara Other Ambulatory Orders: Complete Blood Count w/Diff (Routine) Timeframe: 1 Week Location: None Selected Ordered By: Tyler Lara Comprehensive Metabolic Panel (Routine) Timeframe: 1 Week Location: None Selected Ordered By: Tyler Lara Magnesium (Routine) Location: None Selected Ordered By: Tyler Lara DS: Summary Status at Discharge Functional status at discharge: independent ambulation Overall status at discharge: patient is back to baseline Mental Status: mental status grossly normal Speech and Movement: speech and movement normal Mood: congruent mood Affect: normal affect Exam Narrative Exam Narrative: General: Very pleasant, A&Ox3, sitting up comfortably after eating lunch HEENT: EOMI, MMM Heart: RRR, no m/r/g Lungs: Clear to auscultation bilaterally, normal effort Abdomen: Active bowel sounds, soft, non-distended. Abdomen nontender, no longer feels edematous.. No bruising or other skin changes noted. Extremities: No edema, nontender. Psych Mental Status: mental status grossly normal Speech and Movement: speech and movement normal Mood: congruent mood Affect: normal affect DS: Data Vitals/I&O Vitals and I&O: Vital Signs Temperature 37.8 C H 01/06/20 11:44 Temperature Source Tympanic 01/06/20 11:40 Pulse 98 H 01/06/20 11:40 Pulse Rhythm Regular 01/06/20 13:20 Pulse 112 H 12/26/19 08:17 Respiratory Rate 16 01/06/20 11:40 Respiratory Effort Non-Labored 01/06/20 13:20 Respiratory Depth Normal 01/06/20 13:20 Respiratory Pattern Normal 01/06/20 13:20 Blood Pressure 123/80 01/06/20 11:40 Blood Pressure Mean 106 12/26/19 08:17 Pulse Oximetry 98 01/06/20 11:40 Oxygen Delivery Method Room Air 01/06/20 11:40 Oxygen Flow Rate 0 01/06/20 11:40 Pain Level 7 01/06/20 11:40 Comment 01/04/20 15:15 Intake & Output 01/05/20 01/06/20 01/06/20 23:59 11:59 23:59 Intake Total 771.5 / 2347.0 250 / 1280 1030 / 1280 Output Total 1900 / 3925 1125 / 1125 Balance -1128.5 / -1578.0 -875 / 155 1030 / 155 Intake: IV 291.5 / 837.0 10 Oral 480 / 1510 240 / 1270 1030 / 1270 Output: Urine 1900 / 3925 1125 / 1125 Other: Urine Color Yellow Yellow Straw Urine Appearance Clear Clear Clear Urine Odor Normal Normal Voiding Methods Urinal Urinal Data Completed and Pending Labs on day of discharge: Labs from last 24 hours 01/06/20 06:22 WBC 12.07 H RBC 3.42 L Hgb 11.0 L Hct 33.1 L MCV 96.8 H MCH 32.2 MCHC 33.2 RDW 13.1 Plt Count 682 H MPV 10.0 Immature Gran % See Differential Neutrophils % 71.0 Lymphocytes % 17.0 Monocytes % 8.0 Eosinophils % 2.0 Basophils % 0.0 Myelocytes % 2.0 Absolute Neutrophils 8.57 H Absolute Lymphocytes 2.05 Absolute Monocytes 0.97 H Absolute Eosinophils 0.24 Absolute Basophils 0.00 Differential Comment Manual differential RBC Morphology See below Polychromasia Present [facility] Medical History (Updated 01/05/20 @ 14:10 by Tyler Lara) Alcohol abuse (Chronic) Elevated white blood cell count, unspecified (Acute) Irritable bowel syndrome (Chronic) Pancreatitis (Acute) Surgical History Arthroplasty of knee Social History Smoking/Tobacco Use Status: Current every day Tobacco Type: cigarettes Drug use: Occasionally Substance use type: marijuana Do you feel safe at home: Yes Do you feel safe in your relationship?: Yes
--- NOTE | 2020-02-04 13:00 | NS.NUTBLAN_ITS ---
Diogo presents for outpatient DM education referred by Dr. oLyola. Documentation was verified by patient reporting he has had some dizziness, and confirmed he has Rx for glucometer and test strips at [facility]. Dioog also reports some intermittent blurry vision and stated that he could use a review of the education this RD provided during his recent inpatient stay at [facility]. He reports no issues with his feet at this time. 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 He is on lipase for fat metabolism r/t pancreatitis. He is on metformin 500mg BID and states that he has been taking these meds as prescribed. He stated that he has been abstaining from ETOH and has no abdominal pain at this time. INTERVENTION: Recommended multi vitamin and thiamine to cover micronutrient needs. Demonstrated proper use of glucometer and recommended he record types and amounts of foods he consumes at each meal period. Instructed him to take FBG in am and then 1 hr postprandial for tracking. Requested that he send a photo of 4 day food and BG record for evaluation.Recommended that Diogo make his dentist, veterinary practice manager and eye doc aware of his recent DM diagnosis and get referrals from PCP if needed. Encouraged him to continue eating fresh, home cooked whole foods. Discussed his breakfast and lunch choices for today and suggested avoiding butter and increasing pro at meals to balance CHO intake and provide satiety. Provided additional take home materials on menu planning and reviewed the importance of CHO counting with a goal of <60g per meal period. Discussed the option of inexpensive Relion glucometer and strips as he is concerned about costs r/t his current insurance situation. Recommended slowly starting short walks for physical activities. Recommend thiamine with MD approval. This RD asked Diogo to confirm with his PCP that he is not using insulin at this time and was on it during his recent hospitalization to stabilize his blood sugar. Monitor and Evaluate: Diogo will continue on Multivitamin, record BG level 4X/day for 4 days after picking up his glucometer and strips at [facility]. This RD will F/U with phone call to check in on his BG readings and help him understand trends.
== END 2020-01-06 16:15 | disposition home or self-care (01) | DRG 439 ==
LOC: ER 12-26 00:15 → ICU 12-26 02:28 → MS 12-27 06:54 → ICU 01-07 13:52
PROVIDERS: Internal Medicine; Admitting Provider General Practice; Emergency Provider Emergency Medicine; PCP Family Medicine; Visit Provider Family Medicine
DX: K85.22 Alcohol induced acute pancreatitis with infected necrosis (principal); R65.10 Systemic inflammatory response syndrome (SIRS) of non-infectious origin without acute organ dysfunction; R18.8 Other ascites; N17.9 Acute kidney failure, unspecified; J98.11 Atelectasis; F10.10 Alcohol abuse, uncomplicated; R73.9 Hyperglycemia, unspecified; R03.0 Elevated blood-pressure reading, without diagnosis of hypertension; E87.5 Hyperkalemia; E83.51 Hypocalcemia; R06.02 Shortness of breath; R60.1 Generalized edema; N50.89 Other specified disorders of the male genital organs; F17.210 Nicotine dependence, cigarettes, uncomplicated; Z71.3 Dietary counseling and surveillance; K58.9 Irritable bowel syndrome, unspecified
CPT/HCPCS: 36410; 36415; 36569; 80048; 80053; 80076; 82805; 83690; 84145; 85027; 87040; 96365; 96375; 96376; 99222; 99231; 99232; 99233; 99239; 99254; 99285; U0003; 71045; 74177; 80202; 81003; 81015; 82040; 82330; 82565; 83735; 84300; 85025; 86140; 93970; J0131; J0743; J1644; J1885; J1941; J2405; J3370; J3480; J3490

== ENCOUNTER 2020-01-14 01:20 | Outpatient (CLI) | payer BC, SELFPAY ==
[2020-01-14 14:02] LABS: Abs Immature Grans 0.02 k/cumm (0.0-0.09); Absolute Basophil Count 0.06 k/cumm (0.0-0.2); Absolute Eosinophil Count 0.33 k/cumm (0.0-0.7); Absolute Lymphocyte Count 2.64 k/cumm (1.2-3.4); Absolute Monocyte Count 0.67 k/cumm (0.11-0.7); Absolute Neutrophil Count 5.56 k/cumm (1.2-6.7); Basophils % 0.6; Eosinophils % 3.6; HCT 35.2 % (40.0-50.0); HGB 11.5 g/dL (13.5-17.5); Immature Grans % 0.2 %; Lymphocytes % 28.4; Mean Corp. HGB Concentration 32.7 g/dL (32.0-36.0); Mean Corpuscular Hemoglobin 31.5 pg (27.0-33.0); Mean Corpuscular Volume 96.4 fL (80-95); Mean Platelet Volume 9.2 fL (8.0-11.0); Monocytes % 7.2; RBC 3.65 m/cumm (4.50-6.00); RBC Distribution Width 13.1 % (11.8-14.1); White Blood Cell Count 9.28 k/cumm (4.4-10.8)
[2020-01-14 14:21] LABS: ALT 29 U/L (16-63); AST 31 U/L (15-37); Albumin 3.1 g/dL (3.4-5.0); Alkaline Phosphatase 205 U/L (46-116); Anion Gap 8.8 mmol/L (3-11); BUN 9 mg/dL (7-18); Bilirubin, Total 0.3 mg/dL (0.2-1.0); CO2 25.2 mmol/L (21.0-32.0); CREATININE 1.08 mg/dL (0.70-1.30); Calcium 8.9 mg/dL (8.5-10.1); Chloride 99 mmol/L (98-107); Glucose 198 mg/dL (74-106); Magnesium 1.8 mg/dL (1.8-2.4); Potassium 5.8 mmol/L (3.5-5.1); Sodium 133 mmol/L (136-145); Total Protein 6.8 g/dL (6.4-8.2)
[2020-01-14 14:59] LABS: Platelet Count 1004 x1000/uL (130-400)
[2020-01-14 15:01] LABS: Diff Comment Agrees w/ Instrument; RBC Morphology Normal
== END 2020-01-14 01:40 ==
PROVIDERS: PCP Family Medicine; Visit Provider Family Medicine
DX: E83.42 Hypomagnesemia (principal); R65.10 Systemic inflammatory response syndrome (SIRS) of non-infectious origin without acute organ dysfunction; D72.829 Elevated white blood cell count, unspecified; K85.91 Acute pancreatitis with uninfected necrosis, unspecified; R73.9 Hyperglycemia, unspecified; K85.90 Acute pancreatitis without necrosis or infection, unspecified; F10.10 Alcohol abuse, uncomplicated
CPT/HCPCS: 36415; 80053; 83735; 85025

== ENCOUNTER 2020-01-15 10:07 | Outpatient (CLI) | payer BC, SELFPAY ==
[2020-01-15 16:16] LABS: Abs Immature Grans 0.02 k/cumm (0.0-0.09); Absolute Basophil Count 0.09 k/cumm (0.0-0.2); Absolute Eosinophil Count 0.35 k/cumm (0.0-0.7); Absolute Lymphocyte Count 2.33 k/cumm (1.2-3.4); Absolute Monocyte Count 0.67 k/cumm (0.11-0.7); Absolute Neutrophil Count 4.59 k/cumm (1.2-6.7); Basophils % 1.1; Eosinophils % 4.3; HCT 36.6 % (40.0-50.0); Immature Grans % 0.2 %; Lymphocytes % 28.9; Mean Corp. HGB Concentration 32.8 g/dL (32.0-36.0); Mean Corpuscular Hemoglobin 31.5 pg (27.0-33.0); Mean Corpuscular Volume 96.1 fL (80-95); Mean Platelet Volume 8.8 fL (8.0-11.0); Monocytes % 8.3; Neutrophils % 57.2; RBC 3.81 m/cumm (4.50-6.00); RBC Distribution Width 13.1 % (11.8-14.1); White Blood Cell Count 8.05 k/cumm (4.4-10.8)
[2020-01-15 16:34] LABS: Anion Gap 8.5 mmol/L (3-11); BUN 10 mg/dL (7-18); CO2 25.5 mmol/L (21.0-32.0); CREATININE 1.01 mg/dL (0.70-1.30); Calcium 9.2 mg/dL (8.5-10.1); Chloride 100 mmol/L (98-107); Glucose 245 mg/dL (74-106); Sodium 134 mmol/L (136-145)
[2020-01-15 17:35] LABS: Platelet Count 861 x1000/uL (130-400)
[2020-01-15 17:36] LABS: Diff Comment PLT Morph Reviewed; RBC Morphology Normal
== END 2020-01-15 10:27 ==
PROVIDERS: PCP Family Medicine; Visit Provider Nurse Practitioner Family
DX: K85.90 Acute pancreatitis without necrosis or infection, unspecified (principal)
CPT/HCPCS: 36415; 80048; 85025

== ENCOUNTER 2020-01-20 03:10 | Outpatient (CLI) | payer BC, SELFPAY ==
[2020-01-20 15:22] LABS: Abs Immature Grans 0.02 k/cumm (0.0-0.09); Absolute Basophil Count 0.06 k/cumm (0.0-0.2); Absolute Eosinophil Count 0.26 k/cumm (0.0-0.7); Absolute Lymphocyte Count 2.69 k/cumm (1.2-3.4); Absolute Monocyte Count 0.62 k/cumm (0.11-0.7); Absolute Neutrophil Count 5.82 k/cumm (1.2-6.7); Basophils % 0.6; Eosinophils % 2.7; HCT 37.1 % (40.0-50.0); HGB 12.2 g/dL (13.5-17.5); Immature Grans % 0.2 %; Lymphocytes % 28.4; Mean Corp. HGB Concentration 32.9 g/dL (32.0-36.0); Mean Corpuscular Hemoglobin 31.5 pg (27.0-33.0); Mean Corpuscular Volume 95.9 fL (80-95); Mean Platelet Volume 8.8 fL (8.0-11.0); Monocytes % 6.5; Neutrophils % 61.6; Platelet Count 747 x1000/uL (130-400); RBC 3.87 m/cumm (4.50-6.00); RBC Distribution Width 13.3 % (11.8-14.1); White Blood Cell Count 9.47 k/cumm (4.4-10.8)
[2020-01-20 16:32] LABS: Anion Gap 10.7 mmol/L (3-11); BUN 9 mg/dL (7-18); CO2 24.3 mmol/L (21.0-32.0); CREATININE 1.02 mg/dL (0.70-1.30); Calcium 9.2 mg/dL (8.5-10.1); Chloride 100 mmol/L (98-107); Glucose 294 mg/dL (74-106); Potassium 4.6 mmol/L (3.5-5.1); Sodium 135 mmol/L (136-145)
== END 2020-01-20 03:30 ==
PROVIDERS: Nurse Practitioner Family; PCP Family Medicine; Visit Provider Family Medicine
DX: K85.90 Acute pancreatitis without necrosis or infection, unspecified (principal)
CPT/HCPCS: 36415; 80048; 85025

== ENCOUNTER 2020-02-04 05:20 | Outpatient (CLI) | payer MEDICAID, SELFPAY | END 2020-02-04 05:40 | PROVIDERS: PCP Family Medicine; Visit Provider Dietitian, Registered | DX: E11.9 Type 2 diabetes mellitus without complications (principal); Z79.84 Long term (current) use of oral hypoglycemic drugs; Z71.3 Dietary counseling and surveillance | CPT/HCPCS: 97802 ==

== ENCOUNTER 2020-10-12 03:48 | Outpatient (CLI) | payer MEDICAID, SELFPAY ==
[2020-10-12 15:37] LABS: MCH 31.5 pg (27.0-33.0); MCV 90.1 fL (80-95); MPV 9.3 fL (8.0-11.0); Platelet Count 313 10^3/uL (130-400); RBC 4.44 10^6/uL (4.36-5.78); RDW 13.1 % (11.8-14.1); RDW-SD 42.8 fL; WBC 9.16 10^3/uL (4.4-10.8)
[2020-10-12 16:20] LABS: COMMENT (LAB VIEW ONLY) 117.76 mg/dL; Microalb ug/mg Crea 4.4 ug/mg Cr
[2020-10-12 16:21] LABS: Hemoglobin A1C 6.8 % (<5.7)
[2020-10-12 16:45] LABS: Vitamin D 25 Total 17.9 ng/ml (30-100)
[2020-10-12 16:50] LABS: Chloride 106 mmol/L (98-107); Potassium 4.6 mmol/L (3.5-5.1)
[2020-10-12 17:37] LABS: Albumin 3.7 g/dL (3.4-5.0); Alkaline Phosphatase 122 U/L (46-116); Anion Gap 8.2 mmol/L (3-11); BUN 15 mg/dL (7-18); Bilirubin, Total 0.3 mg/dL (0.2-1.0); CO2 27.8 mmol/L (21.0-32.0); Calcium 8.4 mg/dL (8.5-10.1); Cholesterol 208 mg/dL (<200); Glucose 178 mg/dL (74-106); HDL Cholesterol 33 mg/dL (40-60); Sodium 142 mmol/L (136-145); TSH 1.34 uIU/mL (0.36-3.74); Total Protein 6.7 g/dL (6.4-8.2); Triglyceride 574 mg/dL (<150); Vitamin B12 379 pg/mL (193-986)
[2020-10-12 18:16] LABS: ALT 38 U/L (16-63); AST 28 U/L (15-37)
[2020-10-12 18:33] LABS: FREE T4 0.91 ng/dL (0.76-1.46)
[2020-10-12 19:55] LABS: LDL CHOLESTEROL 128 mg/dL (<100)
[2020-10-12 21:25] LABS: T3,Free 3.6 pg/mL (2.8-5.3)
== END 2020-10-12 03:49 | disposition home or self-care (01) ==
LOC: LBO 03:48
PROVIDERS: Visit Provider Nurse Practitioner Adult Health
DX: E11.9 Type 2 diabetes mellitus without complications (principal); R42 Dizziness and giddiness; E83.51 Hypocalcemia
CPT/HCPCS: 36415; 80053; 80061; 82306; 83721; 85027; 82043; 82565; 82570; 82607; 83036; 83735; 84439; 84443; 84481

== ENCOUNTER 2020-11-04 09:40 | Outpatient (RCR) | payer MEDICAID, SELFPAY ==
--- NOTE | 2020-11-04 10:15 | HOLTER_ITS ---
APPROVED REPORT Exam Type: HOLTER MONITOR APPLICATION Reason for Test: DIZZINESS R42 Patient Location: O Conclusion This was a 48-hour Holter monitor ordered for dizziness Rhythm throughout was sinus with an average heart rate of 81. Minimum was 60, maximum 130 There were no ventricular dysrhythmias There were very rare atrial premature beats There was no atrial fibrillation, no high-grade AV block, no pauses greater than 3 seconds No patient symptoms were reported
== END 2020-11-20 23:59 | disposition home or self-care (01) ==
LOC: RT 09:40
PROVIDERS: Visit Provider Family Medicine
DX: R42 Dizziness and giddiness (principal)
CPT/HCPCS: 93225; 93226

== ENCOUNTER 2021-01-01 07:34 | Outpatient (CLI) | payer MEDICAID, SELFPAY ==
--- NOTE | 2021-02-05 08:52 | W.ZIOMONITOR ---
Date of service: 02/05/21 Time of Service: 08:52 14 Day Air Quality Specialist Referring Provider:: Kehinde Indications:: Dizziness Note: Is a 14-day monitor order for indication of dizziness. ?The patient was normal sinus rhythm for the majority the recording with an average heart rate of 81 bpm. ?There were no episodes of supraventricular tachycardia nor any episodes of ventricular tachycardia. ?There were 13 total PACs and no PVCs. ?There were no episodes of atrial fibrillation, no pauses greater than 3 seconds and no evidence of high degree heart block. ?There were 12 patient triggered events all associated with sinus rhythm or sinus tachycardia.
== END 2021-01-01 07:35 | disposition home or self-care (01) ==
LOC: RT 07:37
PROVIDERS: PCP Nurse Practitioner Adult Health; Visit Provider Nurse Practitioner Adult Health
DX: R42 Dizziness and giddiness (principal)
CPT/HCPCS: 93246

== ENCOUNTER 2021-02-01 01:57 | Outpatient (CLI) | payer MEDICAID, SELFPAY ==
--- NOTE | 2021-02-01 | DI.RAD_ITS ---
Exam(s) XR HIP LT COMPLETE AP PELVIS EXAM: XR HIP LT COMPLETE AP PELVIS CLINICAL HISTORY: LT HIP PAIN, M54.89. TECHNIQUE: 2D digital imaging was performed. COMPARISON: CT CT ABDOMEN PELVIS W from 12/31/[address] ABDOMEN PELVIS W from 12/31/2019 FINDINGS: There is no evidence of pelvic nor hip fracture. Over, there is some narrowing of the hip joint spaces, most prominent on the right side superior aspe ct. Also calcific density seen off the superolateral aspect of both acetabuli. There is some increased density noted within the epiphysis of both femoral heads, approximately equal . Possibly of avascular necrosis is also be considered here. Visualized sacroiliac joints appear unremarkable. IMPRESSION: Some degenerative change in the right hip. 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 DATA REPOSITORY: RADIATION DOSE DELIVERED:
--- NOTE | 2021-02-01 | DI.RAD_ITS ---
Exam(s) XR LUMBAR SPINE COMPLETE EXAM: XR LUMBAR SPINE COMPLETE CLINICAL HISTORY: BACK PAIN,M54.89. TECHNIQUE: 2D digital imaging was performed. COMPARISON: CR XR HIP LT COMPLETE AP PELVIS from 02/01/2021 FINDINGS: There is no evidence of fracture or listhesis. No pars defects. Disc spaces exhibit normal height a lthough there is some narrowing of L1-2 disc space level as well as multilevel anterior osseous lippi ng. There only minimal facet joint degenerative changes. Sacroiliac joints appear unremarkable. So me degenerative changes are noted in the hips IMPRESSION: Mild degenerative changes as described above. There is mild disc space narrowing at L1-2 level. DATA REPOSITORY: RADIATION DOSE DELIVERED:
== END 2021-02-01 02:17 ==
PROVIDERS: PCP Nurse Practitioner Adult Health; Visit Provider Nurse Practitioner Adult Health
DX: M47.816 Spondylosis without myelopathy or radiculopathy, lumbar region (principal); M48.061 Spinal stenosis, lumbar region without neurogenic claudication; M16.11 Unilateral primary osteoarthritis, right hip; M25.552 Pain in left hip
CPT/HCPCS: 72110; 73502

== ENCOUNTER 2021-03-16 07:58 | Day surgery (SDC) | payer MEDICAID, SELFPAY ==
[2021-03-16 08:09] VITALS: BP 144/88; PULSE 63; RESP 16; TEMP 36.8; O2SAT 97
--- NOTE | 2021-03-16 09:35 | SKI_PTH ---
PATIENT: Diogo Barba LOC: [facility] U#:[id number] AGE/SX: 50/M ROOM: RE03/16/[address]: Yary Alcocer : 1970 BED: DIS: 03/16/2021 SPEC #: [id number] RECD: 03/16/21 12:23 STATUS: AIME REQ #: [id number] ANAND: 03/16/21 09:[address]: Yary Alcocer DEPT: Surgical Specimen RECD BY: Denise Prajapati ENTERED: 03/16/21 12:24 SP TYPE: CHRIS MOORE DR: Yesenia Morales Tissues: 1 - SKIN BIOPSY(SHAVE/PUNCH) Procedures: GROSS AND MICRO LEVEL 4 Comments: [id number]
[2021-03-16] MEDS: Sodium Bicarbonate 50 MEQ/50 ML VIAL (09:36)
--- NOTE | 2021-03-16 10:04 | W.PM.DSUDISC ---
Discharge Plan Disposition Patient Disposition: HOME Condition: Good Discharge Details Reason For Visit: removal soft tissue mass Attending Provider: Yray Alcocer Primary Care Provider: Yesenia Morales Home Meds and New Rx's Prescriptions: New celecoxib [Celebrex] 100 mg capsule 100 mg PO BID Qty: 14 RF: 0 Continued amitriptyline 10 mg tablet 10 mg PO QHS Qty: 30 RF: 11 (DME) Blood Glucose Test Strip See Rx Instructions .ROUTE .MEDSUPPLY Qty: 200 RF: 3 (DME) blood-glucose meter [Blood Glucose Monitoring] Kit See Rx Instructions .ROUTE .MEDSUPPLY Qty: 1 RF: 0 (DME) lancets 31 gauge misc See Rx Instructions .ROUTE .MEDSUPPLY Qty: 200 RF: 0 terbinafine HCl 250 mg tablet 250 mg PO DAILY RF: 0 pregabalin [Lyrica] 50 mg capsule 100 mg PO DAILY RF: 0 duloxetine [Cymbalta] 60 mg capsule,delayed release(DR/EC) 30 mg PO DAILY RF: 0 melatonin 10 mg capsule 10 mg PO HS PRNRF: 0 aspirin 325 mg tablet 325 mg PO DAILY RF: 0 atorvastatin 40 mg tablet 40 mg PO DAILY RF: 0 metformin 500 mg tablet extended release 24hr 500 mg PO BID Qty: 180 RF: 11 diphenhydramine-acetaminophen [Tylenol PM Extra Strength] 25-500 mg Tablet 2 tab PO QHS PRNRF: 0 Discharge Instructions Additional Instructions: Wound Care Instruction Pain Control Use ice! Ice keeps the swelling down and swelling is what causes pain. Never apply ice directly to the skin. Wrap it in a towel or cloth. Apply ice 20 minutes on and 20 minutes off for pain control. Use continuously for the first 72 hrs, than can Use as needed. Pain control: Ibuprofen 600mg 6hrs (take w/ food. Do not take on an empty stomach) and Tylenol 1000mg by mouth (ibuprofen 400-600mg) every 8 hours. Do not take if you have ulcers or sensitivity to aspirin. Do not take Tylenol if you have hepatitis or liver failure. Alternate the Tylenol and ibuprofen. Take pain meds continuously for the first 72hrs. After 72hrs, you can take as needed if you are having pain. -hold asiprin x1 week or while you are takin gibraymonrofen. ?Caring for Your Incision Home care ? Always wash your hands before touching your incision. ? Keep the incision clean, dry, and out of water, keep the incision out of water. ? Do not to pick at the scabs. Scabs help protect the wound. ? You can take a shower in 24 hours and wash the incision with soap and water. Pat dry/don?t scrub. It?s OK to wash around the incision. But don?t spray water directly on it. ? Pat stitches dry if they get wet. Don't rub. ? Check the incision site daily for pain, redness, drainage, swelling, or separation of the incision edges. ? Make sure any clothing that touches the incision is loose-fitting. This will prevent rubbing. If the incision is on the head, keep your child from wearing caps or other head coverings. These may rub against the incision. As your incision heals, the skin may appear pink or red. It may also feel slightly bumpy or raised. This is called a healing ridge. Over time, the color should fade and the raised skin will become less noticeable. When to seek medical care Call your healthcare provider right away if you have any of these: ? More pain, redness, swelling, bleeding, or foul-smelling discharge around the incision area ? Fever of 101?F (38.3?C) or higher, or as directed by your child's healthcare provider ? Shaking chills ? Vomiting or nausea that doesn?t go away ? Numbness, coldness, or tingling around the incision area, or changes in skin color ? Opening of the sutures or wound -Stitches or tammy that come apart or fall out or surgical tape falls off before 7 days, or as directed by your healthcare provider [facility]: [phone] Discharge Orders Discharge Orders: Discharge Order (Routine); Ordered 03/16/21 Ordered By: Yary Alcocer DS: Diagnosis Discharge Diagnosis (1) Lipoma: Status: Acute
[2021-03-16] MEDS: Celecoxib 200 MG CAP (10:16)
--- NOTE | 2021-03-16 10:25 | W.PM.OP ---
Date of service: 03/16/21 Time of Service: 10:25 Operative Note Operative Note DATE OF PROCEDURE: 03/16/21 PRE-OP DIAGNOSIS: scalp mass PROCEDURE: Removal of soft tissue mass SURGEON: Yary Alcocer ANESTHESIA TYPE: Local By Surgeon Refer to Anesthesia Record ESTIMATED BLOOD LOSS: 3 PATHOLOGY: other COMPLICATIONS: None Patient was transported to: same day Patient's condition: stable Procedure Description: Patient is here today for excision of a soft tissue mass in the occipital region of his head. For consent is obtained explaining risks and benefits of procedure including not limited to bleeding infection pneumonia blood clots, scarring, recurrence, complications of anesthesia, and other unknown complications. Patient brought to the operating room suite and placed in the supine position. He is prepped and draped in usual sterile fashion using a ChloraPrep scrub solution. Timeout is performed. The area is anesthetized with 20 cc of quarter percent Marcaine with epi. A 1 inch incision is made at the apex of the lesion. Electrocautery is used to provide hemostasis. Lesion is then sharply dissected out. It appears to be a lipoma. It is 4 cm x 2 cm x 2 cm. Electrocautery is used to provide hemostasis. The wound is irrigated. Is then closed in 2 layers with 4-0 Vicryl and then interrupted sutures of 3-0 nylon. Compression dressing is applied. Patient did not require a drain. Patient comes to go without complication and transferred to same-day surgery in stable condition. He was given instructions in wound care activity and warning signs. We will follow up in 10 days for suture removal. If he has any questions or concerns he can contact the office.
== END 2021-03-16 10:46 | disposition home or self-care (01) ==
PROVIDERS: PCP Nurse Practitioner Adult Health; Visit Provider Surgery
PROC: (CPT 21012; principal; 2021-03-16 08:45)
DX: D17.0 Benign lipomatous neoplasm of skin and subcutaneous tissue of head, face and neck (principal)
CPT/HCPCS: 21012; 88305

== ENCOUNTER 2021-04-28 19:11 | Emergency (ER) | payer MEDICAID, SELFPAY ==
[2021-04-28 19:14] VITALS: BP 161/87; PULSE 94; RESP 16; TEMP 36.3; O2SAT 97
--- NOTE | 2021-04-28 19:22 | W.ED.GENAD ---
Discharge Plan Disposition Patient Disposition: HOME Condition: Improving Discharge Details Clinical Impression: Abscess, dental Primary Care Provider: Yesenia Morales ED Provider: Mckenna Nava Home Meds and New Rx's Prescriptions: New penicillin V potassium 500 mg tablet 500 mg PO QID 7 Days Qty: 28 RF: 0 Continued amitriptyline 10 mg tablet 10 mg PO QHS Qty: 30 RF: 11 pregabalin [Lyrica] 200 mg capsule 200 mg PO TID RF: 0 terbinafine HCl 250 mg tablet 250 mg PO DAILY RF: 0 (DME) Blood Glucose Test Strip See Rx Instructions .ROUTE .MEDSUPPLY Qty: 200 RF: 3 (DME) blood-glucose meter [Blood Glucose Monitoring] Kit See Rx Instructions .ROUTE .MEDSUPPLY Qty: 1 RF: 0 (DME) lancets 31 gauge misc See Rx Instructions .ROUTE .MEDSUPPLY Qty: 200 RF: 0 terbinafine HCl 250 mg tablet 250 mg PO DAILY RF: 0 melatonin 10 mg capsule 10 mg PO HS PRNRF: 0 aspirin 325 mg tablet 325 mg PO DAILY RF: 0 atorvastatin 40 mg tablet 40 mg PO DAILY RF: 0 metformin 500 mg tablet extended release 24hr 500 mg PO BID Qty: 180 RF: 11 diphenhydramine-acetaminophen [Tylenol PM Extra Strength] 25-500 mg Tablet 2 tab PO QHS PRNRF: 0 Discharge Instructions Instructions: Penicillin V (By mouth), Dental Abscess (ED) Additional Instructions: You have a dental abscess. This was drained here. Please take the antibiotics as prescribed. Even if symptoms improve, please take the entire course. Please take a probiotic while on antibiotics to help prevent any diarrhea. Encourage hydration. Tylenol and ibuprofen as needed for discomfort. Attached is a list of local dentist, please try to get plan as soon as possible for definitive care. If you develop swelling, fever/chills, or other new/worsening symptoms please seek care urgently once again. Referrals: Yesenia Morales [Primary Care Provider] - Medical Decision Making Patient is a pleasant 50-year-old male presents today with chief complaint of left upper dental pain. Patient reports he has had multiple dental infections historically. States that this began yesterday. Noted a small area of swelling today. States that at 1 point he did seem to drain some but then quickly reformed. He denies any radiation of pain. No fevers or chills. States he is feeling otherwise well. On exam, patient appears nontoxic. He does have a small focal abscess near the #10 tooth. Poor dentition with multiple teeth broken and short brown nubbins. No pain along the lingual side. No pain with palpation of the sinuses. Patient is afebrile with no evidence of septicemia. Patient I discussed her/benefits as well as procedural steps associated with drainage. He voiced understanding and wished to proceed. Please see procedure note. Patient tolerated this well. Patient was initially anesthetized with Hurricaine gel and lanced with an 18-gauge needle. Purulent discharge immediately emanated from the area. Patient has been a well to [facility] historically. We will continue with this again. I advised close follow-up with local dentist. Patient reports that he is on waiting list with local dentist. Will give list of local dentist as well. Encourage hydration. Tylenol and ibuprofen as needed for discomfort. Return precautions were discussed. All of his questions and concerns were addressed and he is in agreement this plan. Patient given a dose of penicillin for tonight and dose for tomorrow morning HPI General Mode of arrival: ambulatory. Date/Time Provider Initiated Documentation: 04/28/21 19:22. Limitations to Documentation: no limitations. Information obtained by: patient and RN notes reviewed. History of Present Illness 50 year old M presents to the emergency department with the chief complaint of left upper dental abscess, described as moderate, with intensity rated at 6. Quality is described as aching, and is localized to the mouth. Patient reports no radiation. Patient started experiencing this day(s) (1) and it has been constant. No relieving factors improve symptom(s), No exacerbating factors reported . Patient notes no other symptoms.. Patient did receive the following treatments prior to arrival, none Related Data Home Medications Medication Instructions Recorded Confirmed Blood Glucose Monitoring #1 each NS 01/21/20 03/30/21 Blood Glucose Test #200 each NS 01/21/20 03/30/21 lancets 31 gauge #200 each 01/21/20 03/30/21 amitriptyline 10 mg tablet 10 mg PO QHS #30 tab 05/25/20 04/28/21 metformin 500 mg tablet,extended 500 mg PO BID #180 tab 07/06/20 04/28/21 release 24hr aspirin 325 mg tablet 325 mg PO DAILY 02/25/21 04/28/21 atorvastatin 40 mg tablet 40 mg PO DAILY 02/25/21 04/28/21 melatonin 10 mg capsule 10 mg PO HS PRN 02/25/21 04/28/21 terbinafine HCl 250 mg tablet 250 mg PO DAILY 02/25/21 04/28/21 diphenhydramine-acetaminophen 2 tab PO QHS PRN 03/16/21 04/28/21 [Tylenol PM Extra Strength] pregabalin 200 mg capsule 200 mg PO TID 03/25/21 04/28/21 terbinafine HCl 250 mg tablet 250 mg PO DAILY 03/25/21 03/30/21 penicillin V potassium 500 mg PO QID 7 Days #28 tab 04/28/21 Previous Rx's Medication Instructions Recorded Blood Glucose Monitoring #1 each NS 01/21/20 Blood Glucose Test #200 each NS 01/21/20 lancets 31 gauge #200 each 01/21/20 amitriptyline 10 mg tablet 10 mg PO QHS #30 tab 05/25/20 metformin 500 mg tablet,extended 500 mg PO BID #180 tab 07/06/20 release 24hr penicillin V potassium 500 mg PO QID 7 Days #28 tab 04/28/21 Allergies Allergy/AdvReac Type Severity Reaction Status Date / Time erythromycin base Allergy Severe Severe GI, Unverified 04/28/21 19:17 vomiting General Stated Complaint: DentalOral KATELYNN: 4 Review of Systems Constitutional Constitutional: Reports as per HPI, Denies chills, Denies fatigue, Denies fever(s), Denies headache(s) and Denies poor appetite Eyes Eyes: Denies change in vision and Denies irritation ENT Ears, Nose, Mouth, and Throat: Reports as per HPI, Reports dental pain, Denies dysphagia, Denies dizziness, Denies dry mouth, Denies ear discharge, Denies otalgia, Denies facial pain, Denies headache(s), Denies hoarseness, Denies lip swelling, Denies nasal congestion, Denies odynophagia and Denies sore throat Cardiovascular Cardiovascular: Denies dyspnea Respiratory Respiratory: Reports as per HPI, Denies cough and Denies dyspnea Gastrointestinal Gastrointestinal: Reports as per HPI, Denies dysphagia and Denies odynophagia Integumentary/Breasts Skin/Breast: Reports as per HPI, Denies erythema, Denies rash and Denies skin pain Neurologic Neurologic: Reports as per HPI, Denies dizziness and Denies headache(s) Endocrine Endocrine: Denies fatigue Allergic/Immunologic Allergic/Immunologic: Denies lip swelling [facility] Medical History Alcohol abuse Elevated white blood cell count, unspecified Irritable bowel syndrome Lipoma removal 03/16/21 Pancreatitis Surgical History (Updated 03/26/21 @ 09:45 by Vaishnavi Deleon RN) Arthroplasty of knee History of surgical removal of skin lesion (~03/16/21) lipoma, back of head Social History Smoking/Tobacco Use Status: Current every day Tobacco Type: cigarettes Smoking risk assessment performed?: Yes Alcohol Intake: former Drug use: Occasionally Substance use type: marijuana Details: uses in the evenings Current gender identity: male Do you feel safe at home: Yes Do you feel safe in your relationship?: Yes Exam Const General: cooperative, healthy appearing, comfortable, no acute distress, well developed and well groomed Nutritional Appearance: average body habitus and well nourished Orientation: alert and awake [facility] Head: normal to inspection, normocephalic and atraumatic Ears: hearing grossly normal bilaterally, external ears normal and TM's normal bilaterally General nose exam: external nose normal and nares normal Face and sinus: normal facial exam, sinuses nontender and face symmetric Mouth: lip normal, tongue normal, moist mucous membranes, no trismus and No restricted motion Teeth and gingiva: poor dentition Teeth image: 1. Area of small focal abscess. Poor dentition throughout. No pain along lingual side. No swelling under tongue, posterior oropharynx normal. Throat: posterior oropharynx normal, tonsils normal and uvula midline Eyes General: appearance normal, both eyes and all related structures Neck Neck: normal visual inspection, full ROM, no lymphadenopathy, supple and no anterior neck swelling Resp Effort & Inspection: normal respiratory effort, able to speak in complete sentences and no respiratory distress Auscultation: no rales Skin General skin exam: no rashes or lesions noted Trauma: no lacerations or abrasions Neuro General: patient alert and patient awake Cognition: normal cognition Speech: speech normal Gait: normal gait Psych Appearance: grossly normal and well kempt Mental Status: mental status grossly normal Speech and Movement: speech and movement normal Course Vital Signs Vital signs: Vital Signs Temperature 36.3 C L 04/28/21 19:14 Pulse 94 H 04/28/21 19:14 Respiratory Rate 16 04/28/21 19:14 Blood Pressure 161/87 H 04/28/21 19:14 Temperature 36.3 C L 04/28/21 19:14 Pulse 94 H 04/28/21 19:14 Respiratory Rate 16 04/28/21 19:14 Respiratory Effort Non-Labored 04/28/21 19:18 Blood Pressure 161/87 H 04/28/21 19:14 Pain Level 97 04/28/21 19:14 Procedures Abscess I/D Site: Other (dental) Side (if applicable): Left Sedation/analgesia: None Local Anesthetic: Other Anesthetic (topical Hurricaine gel) Technique: Needle Aspiration Irrigation: Yes Packing used?: None Complications: Other (none)
[2021-04-28] MEDS: Benzocaine 20% Gel 30 GM JAR MM (19:33)
[2021-04-28] MEDS: Penicillin V POTASSIUM 500 MG TAB PO ×2 (19:33→19:52)
== END 2021-04-28 19:55 | disposition home or self-care (01) ==
PROVIDERS: Emergency Provider Physician Assistant; PCP Nurse Practitioner Adult Health
DX: K04.7 Periapical abscess without sinus (principal)
CPT/HCPCS: 99283

== ENCOUNTER 2021-08-26 03:13 | Outpatient (CLI) | payer MEDICAID, SELFPAY ==
[2021-08-26 15:06] LABS: HGB 13.6 g/dL (13.5-17.5)
[2021-08-26 15:10] LABS: Hemoglobin A1C 8.4 % (<5.7)
[2021-08-26 15:36] LABS: COMMENT (LAB VIEW ONLY) 37.96 mg/dL; Microalb ug/mg Crea 9.5 ug/mg Cr
[2021-08-26 16:38] LABS: Vitamin D 25 Total 54.6 ng/mL (30-100)
[2021-08-26 16:42] LABS: ALT 36 U/L (16-63); AST 23 U/L (15-37); Alkaline Phosphatase 115 U/L (46-116); Anion Gap 9.2 mmol/L (3-11); BUN 22 mg/dL (7-18); Bilirubin, Total 0.2 mg/dL (0.2-1.0); CO2 27.8 mmol/L (21.0-32.0); Calcium 8.8 mg/dL (8.5-10.1); Calculated LDL 33 mg/dL (<100); Chloride 103 mmol/L (98-107); Cholesterol 123 mg/dL (<200); Glucose 279 mg/dL (74-106); HDL Cholesterol 37 mg/dL (40-60); Magnesium 1.8 mg/dL (1.8-2.4); Potassium 4.4 mmol/L (3.5-5.1); Sodium 140 mmol/L (136-145); Total Protein 7.1 g/dL (6.4-8.2); Triglyceride 265 mg/dL (<150); Vitamin B12 316 pg/mL (193-986)
[2021-08-26 16:51] LABS: Bilirubin, Direct 0.1 mg/dL (0.0-0.2)
== END 2021-08-26 03:14 | disposition home or self-care (01) ==
LOC: LBO 03:13
PROVIDERS: PCP Nurse Practitioner Adult Health; Visit Provider Nurse Practitioner Adult Health
DX: E11.9 Type 2 diabetes mellitus without complications (principal); E78.5 Hyperlipidemia, unspecified; E55.9 Vitamin D deficiency, unspecified
CPT/HCPCS: 36415; 80053; 80061; 80076; 82306; 82043; 82570; 82607; 83036; 83735; 85018

== ENCOUNTER 2023-11-08 19:09 | Emergency (ER) | payer BC, SELFPAY ==
[2023-11-08 19:16] VITALS: BP 168/88; PULSE 88; RESP 20; TEMP 36.6; O2SAT 98
--- NOTE | 2023-11-08 19:21 | W.ED.GENAD ---
Discharge Plan Disposition Patient Disposition: Home Condition: Stable Discharge Details Clinical Impression: Dental infection Primary Care Provider: Yesenia Morales ED Provider: Jairon Whalen Home Meds and New Rx's Prescriptions: New amoxicillin-pot clavulanate 875-125 mg tablet 1 tab PO BID 10 Days Qty: 20 0RF chlorhexidine gluconate 0.12 % mouthwash 15 ml mucous membrane BID Qty: 1893 0RF Continued amitriptyline 10 mg tablet 10 mg PO QHS Qty: 30 11RF pregabalin [Lyrica] 200 mg capsule 200 mg PO TID terbinafine HCl 250 mg tablet 250 mg PO DAILY (DME) Blood Glucose Test Strip See Rx Instructions .ROUTE .MEDSUPPLY Qty: 200 3RF Rx Instructions: Twice daily (DME) blood-glucose meter [Blood Glucose Monitoring] Kit See Rx Instructions .ROUTE .MEDSUPPLY Qty: 1 0RF Rx Instructions: As directed (DME) lancets 31 gauge misc See Rx Instructions .ROUTE .MEDSUPPLY Qty: 200 0RF Rx Instructions: use bid terbinafine HCl 250 mg tablet 250 mg PO DAILY melatonin 10 mg capsule 10 mg PO HS PRN aspirin 325 mg tablet 325 mg PO DAILY atorvastatin 40 mg tablet 40 mg PO DAILY metformin 500 mg tablet extended release 24hr 500 mg PO BID Qty: 180 11RF diphenhydramine-acetaminophen [Tylenol PM Extra Strength] 25-500 mg Tablet 2 tab PO QHS PRN Discharge Instructions Instructions: Chlorhexidine (Into the mouth), Amoxicillin/Clavulanate Potassium (By mouth), Dental Abscess (ED) Additional Instructions: You were seen in the emergency department for your diffuse dental caries and decay with onset of pain this is likely the early onset of a dental infection, if we treat early and effectively we can prevent a large abscess. 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 Please use therapeutic dosing of Tylenol (acetamenophen) & Advil (ibuprofen) in an alternating fashion as follows: Take 1000mg of Tylenol every 6 hours without missing doses- that is 4 times per day. Longterm in between the Tylenol dosings, take 400-600mg of Advil also on a 6 hour schedule, that is also 4 times per day. The daily maximum dosing of Tylenol is 4000mg, and the daily maximum dosing of Advil is 2400mg. This is safe to do for weeks. Please note that some common cold medications & prescription pain medications may contain acetamenophen and you need to read OTC drug labels and factor that in to maximum daily dosings. Use topical Anbesol to apply to the area of pain for relief of pain and local anesthetic at mealtimes and before bed. Perform salt water gargles 3 times per day. I have also sent to a prescription strength antibiotic mouth rinse to help prevent future recurrence of dental infection. Please follow-up with a dentist for definitive care, please return to the ER for any severe unilateral neck swelling, excessive drooling, vocal changes, facial swelling with redness and fever. Referrals: Yesenia Morales [Primary Care Provider] - [facility] General Date/Time Provider Initiated Documentation: 11/08/23 19:19. HPI Narrative: 53 year-old male presents to ED today by POV/ambulating with a chief complaint of dental pain with onset acutely the past day or so, has chronic history of dental decay and infections/abscesses. Quality described as throbbing, no radiation to excessive drooling, dysphagia, neck swelling, vocal changes, facial swelling or redness, endorses pain in the philtrum. Severity is described as moderate. Palliating factors include nothing specific. Provoking factors include nothing specific. Patient not anticoagulated. Related Data Home Medications Medication Instructions Recorded Confirmed Blood Glucose Monitoring #1 ea 01/21/20 03/30/21 (blood-glucose meter) Blood Glucose Test (blood sugar #200 ea 01/21/20 03/30/21 diagnostic) lancets 31 gauge #200 ea 01/21/20 03/30/21 amitriptyline 10 mg tablet 10 mg PO QHS #30 tabs 05/25/20 04/28/21 metformin 500 mg tablet,extended 500 mg PO BID #180 tabs 07/06/20 04/28/21 release 24hr (osmotic) aspirin 325 mg tablet 325 mg PO DAILY 02/25/21 04/28/21 atorvastatin 40 mg tablet 40 mg PO DAILY 02/25/21 04/28/21 melatonin 10 mg capsule 10 mg PO HS PRN 02/25/21 04/28/21 terbinafine HCl 250 mg tablet 250 mg PO DAILY 02/25/21 04/28/21 diphenhydramine 25 2 tab PO QHS PRN 03/16/21 04/28/21 mg-acetaminophen 500 mg tablet (Tylenol PM Extra Strength) pregabalin 200 mg capsule (Lyrica) 200 mg PO TID 03/25/21 04/28/21 terbinafine HCl 250 mg tablet 250 mg PO DAILY 03/25/21 03/30/21 amoxicillin 875 mg-potassium 1 tab PO BID dental infection 10 11/08/23 clavulanate 125 mg tablet days #20 tabs chlorhexidine gluconate 0.12 % 15 ml mucous membrane BID dental 11/08/23 mouthwash infection #1,893 mL Previous Rx's Medication Instructions Recorded Blood Glucose Monitoring #1 ea 01/21/20 (blood-glucose meter) Blood Glucose Test (blood sugar #200 ea 01/21/20 diagnostic) lancets 31 gauge #200 ea 01/21/20 amitriptyline 10 mg tablet 10 mg PO QHS #30 tabs 05/25/20 metformin 500 mg tablet,extended 500 mg PO BID #180 tabs 07/06/20 release 24hr (osmotic) amoxicillin 875 mg-potassium 1 tab PO BID dental infection 10 11/08/23 clavulanate 125 mg tablet days #20 tabs chlorhexidine gluconate 0.12 % 15 ml mucous membrane BID dental 11/08/23 mouthwash infection #1,893 mL Allergies Allergy/AdvReac Type Severity Reaction Status Date / Time erythromycin base Allergy Severe Severe GI, Unverified 04/28/21 19:17 vomiting General Stated Complaint: DentalOral KATELYNN: 4 Review of Systems All systems reviewed & are unremarkable except as noted in HPI and below Exam Narrative Exam Narrative: GENERAL APPEARANCE: Well-nourished, non-toxic, awake and alert, atraumatic, no acute distress. SKIN: Warm, pink, dry, intact, without rashes/lesions/ulcerations. HEAD: Normocephalic, atraumatic, normal hair distribution for gender/age. EYES: Normal conjunctiva, no exudates on lids/lashes. ENT: Nares patent, no circumoral cyanosis, no facial swelling, uvula midline, no tongue deviation, diffuse severe dental decay without gingival swelling or visible abscess, no neck swelling, no facial swelling/erythema NECK: Supple, trachea midline, painless cervical ROM. LUNGS/CHEST: Non-labored respirations, normal A/P diameter, symmetrical expansion, no chest wall deformity HEART (CV/PV): No peripheral edema, no JVD. ABDOMEN: Soft, non-distended, no guarding. MSK: Normal ROM, no swelling/deformity to bilateral UEs or LEs, moving all extremities without weakness, no cyanosis, spine midline without tenderness, normal curvature. NEURO: Mental Status AAOx4 - alert to person, place, time, events No facial droop, no forehead involvement. Motor: No focal weakness - strength 5/5 in bilateral UEs and LEs, proximal and distal, symmetric. Sensory: sensation intact to light touch globally. Gait normal: patient ambulated without ataxia into ED room. PSYCH: euthymic, cooperative, pleasant, appropriate speech Course Vital Signs Vital signs: Vital Signs Temperature 36.6 C 11/08/23 19:16 Pulse 88 11/08/23 19:16 Respiratory Rate 20 11/08/23 19:16 Blood Pressure 168/88 H 11/08/23 19:16 Pulse Oximetry 98 11/08/23 19:16 Temperature 36.6 C 11/08/23 19:16 Temperature Source Tympanic 11/08/23 19:16 Pulse 88 11/08/23 19:16 Respiratory Rate 20 11/08/23 19:16 Blood Pressure 168/88 H 11/08/23 19:16 Pulse Oximetry 98 11/08/23 19:16 Oxygen Delivery Method Room Air 11/08/23 19:16 Oxygen Flow Rate 0 11/08/23 19:16 Pain Level 8 11/08/23 19:16 Medical Decision Making This dictation utilizes [id number] dictation software and may contain unedited grammatical errors. 53 y/o M presents to ED today with a chief complaint of dental pain, acute on chronic with severe dental decay, throbbing in nature, denies throat pain/dysphagia, denies excessive drooling, no fevers. Patients' medical history: diffuse dental decay. Family and social history: noncontributory. Pertinent exam findings / vital signs include ENT: Nares patent, no circumoral cyanosis, no facial swelling, uvula midline, no tongue deviation, diffuse severe dental decay without gingival swelling or visible abscess, no neck swelling, no facial swelling/erythema. Differential / pathologies of concern include Dental Infection, Dental Abscess, MERCHANDISING REPRESENTATIVE/RPA unlikely. Diagnostic studies of: -none. Interventions of: -Augmentin to-go w/ outpatient Rx sent after-hours, Chlorhexidine mouth rinse Rx. ED Course/Assessment/Plan: Counseled the patient on therapeutic dosing of Tylenol and ibuprofen for dental pain as well as prescribed Augmentin for dental infection, recommend he follow-up with dentist, given prescription for chlorhexidine mouth rinse to prevent further recurrence and discussed at length signs and symptoms to return for including excessive drooling, dysphagia, unilateral neck swelling, facial swelling and redness with fever. Findings not consistent with MERCHANDISING REPRESENTATIVE/RPA, facial cellulitis. Disposition of Dental Infection. Patient verbalized understanding of the plan and return to ED criteria and engaged in shared decision making. Medical Records Medical records reviewed: Yes I reviewed the patient's medical records. Quality:SDOH Health Related Social Needs: No Data to Display PFSH All Active Problems (Updated 11/08/23 @ 19:24 by SYD Diaz) Dental infection (Acute) Abscess, dental (Acute) Lipoma (Acute) removal 03/16/21 Pancreatic insufficiency (Acute) Diabetes mellitus type 2 in nonobese (Acute) Elevated white blood cell count, unspecified (Acute) SIRS (systemic inflammatory response syndrome) (Acute) Acute necrotizing pancreatitis (Acute) DVT prophylaxis (Acute) Discharge planning issues (Acute) Hyperglycemia (Acute) Pancreatitis (Acute) Irritable bowel syndrome (Chronic) Alcohol abuse (Chronic) Pancreatitis (Acute) Tobacco dependence (Acute) Hypomagnesemia (Acute) Medical History Alcohol abuse Elevated white blood cell count, unspecified Irritable bowel syndrome Lipoma removal 03/16/21 Pancreatitis Surgical History (Updated 03/26/21 @ 09:45 by Vaishnavi Deleon RN) History of surgical removal of skin lesion (~03/16/21) lipoma, back of head Arthroplasty of knee Social History Smoking/Tobacco Use Status: Current every day Tobacco Type: cigarettes Smoking risk assessment performed?: Yes Alcohol Intake: former Drug use: Occasionally Substance use type: marijuana Details: uses in the evenings Current gender identity: male Do you feel safe at home: Yes Do you feel safe in your relationship?: Yes
[2023-11-08] MEDS: Amox. 875/Clav. 125, 2 TABS/BTL 1 TAB PO (19:31)
== END 2023-11-08 19:31 | disposition home or self-care (01) ==
LOC: ER 19:32
PROVIDERS: Emergency Provider Physician Assistant; PCP Nurse Practitioner Adult Health
DX: K08.89 Other specified disorders of teeth and supporting structures (principal); K04.7 Periapical abscess without sinus; E11.9 Type 2 diabetes mellitus without complications; Z79.82 Long term (current) use of aspirin; Z79.84 Long term (current) use of oral hypoglycemic drugs; Z79.899 Other long term (current) drug therapy
CPT/HCPCS: 99283

== ENCOUNTER 2024-02-18 12:43 | Emergency (ER) | payer BC, SELFPAY ==
[2024-02-18 12:45] VITALS: BP 133/85; PULSE 89; RESP 16; TEMP 37; O2SAT 99
--- NOTE | 2024-02-18 13:27 | ED.GENADUL_ITS ---
Discharge Plan Disposition Patient Disposition: Home Discharge Details Clinical Impression: Laceration of great toe of right foot Primary Care Provider: Yesenia Morales ED Provider: Nadir Ortiz Home Meds and New Rx's Prescriptions: New cephalexin 500 mg tablet 500 mg PO QID 5 Days Qty: 20 0RF Continued amitriptyline 10 mg tablet 10 mg PO QHS Qty: 30 11RF Patient Comments: pt states dose is 200mg 02/18/24 terbinafine HCl 250 mg tablet 250 mg PO DAILY (DME) Blood Glucose Test Strip See Rx Instructions .ROUTE .MEDSUPPLY Qty: 200 3RF Rx Instructions: Twice daily (DME) blood-glucose meter [Blood Glucose Monitoring] Kit See Rx Instructions .ROUTE .MEDSUPPLY Qty: 1 0RF Rx Instructions: As directed (DME) lancets 31 gauge misc See Rx Instructions .ROUTE .MEDSUPPLY Qty: 200 0RF Rx Instructions: use bid melatonin 10 mg capsule 10 mg PO HS PRN aspirin 325 mg tablet 325 mg PO DAILY Patient Comments: 81mg 02/18/24 atorvastatin 40 mg tablet 40 mg PO DAILY varenicline [Chantix Starting Month Box] 0.5 mg (11)- 1 mg (42) tablets,dose pack See Rx Instructions PO PER PKG DIR Rx Instructions: PO PER PKG DIR cholecalciferol (vitamin D3) 1,250 mcg (50,000 unit) capsule 1,250 mcg PO QWEEK cyclobenzaprine 10 mg tablet 20 mg PO HS diclofenac potassium 50 mg tablet 100 mg PO BID Jardiance 10 mg tablet 10 mg PO DAILY insulin glargine [Lantus Solostar U-100 Insulin] 100 unit/mL (3 mL) insulin pen 17 unit subcut QPM lorazepam 0.5 mg tablet 0.5 mg PO TID PRN metformin 500 mg tablet 1,000 mg PO BID chlorhexidine gluconate 0.12 % mouthwash 15 ml mucous membrane BID Qty: 1893 0RF diphenhydramine-acetaminophen [Tylenol PM Extra Strength] 25-500 mg Tablet 2 tab PO QHS PRN Discharge Instructions Instructions: Toe Injury Additional Instructions: Watch for any signs of infection and return immediately to the emergency department if these occur. Otherwise keep dressing in place and then keep wound clean and dry. Please take antibiotics as prescribed and follow-up with primary care provider for reassessment early this next week Referrals: Yesenia Morales [Primary Care Provider] - 3 days Discharge Data Discharge Date/Time-TO BE ENTERED AT DEPARTURE: 02/18/24 13:56 HPI General Mode of arrival: ambulatory . Date/Time Provider Initiated Documentation: 02/18/24 12:53 . Limitations to Documentation: no limitations . Information obtained by: patient and RN notes reviewed . History of Present Illness 53 year old M presents to the emergency department with the chief complaint of Right great toe laceration, described as mild and moderate, and is localized to the right and lower extremity. Patient started experiencing this hour(s) (11) and it has been constant. No relieving factors improve symptom(s), No exacerbating factors reported . Patient notes no other symptoms.. Related Data Home Medications ?Medication ?Instructions ?Recorded ?Confirmed Blood Glucose Monitoring #1 ea 01/21/20 03/30/21 (blood-glucose meter) Blood Glucose Test (blood sugar #200 ea 01/21/20 03/30/21 diagnostic) lancets 31 gauge #200 ea 01/21/20 03/30/21 amitriptyline 10 mg tablet 10 mg PO QHS #30 tabs 05/25/20 02/18/24 aspirin 325 mg tablet 325 mg PO DAILY 02/25/21 02/18/24 atorvastatin 40 mg tablet 40 mg PO DAILY 02/25/21 02/18/24 melatonin 10 mg capsule 10 mg PO HS PRN 02/25/21 02/18/24 diphenhydramine 25 2 tab PO QHS PRN 03/16/21 02/18/24 mg-acetaminophen 500 mg tablet (Tylenol PM Extra Strength) terbinafine HCl 250 mg tablet 250 mg PO DAILY 03/25/21 02/18/24 chlorhexidine gluconate 0.12 % 15 ml mucous membrane BID dental 11/08/23 02/18/24 mouthwash infection #1,893 mL cholecalciferol (vitamin D3) 1,250 1,250 mcg PO QWEEK 02/14/24 02/18/24 mcg (50,000 unit) capsule cyclobenzaprine 10 mg tablet 20 mg PO HS 02/14/24 02/18/24 diclofenac potassium 50 mg tablet 100 mg PO BID 02/14/24 02/18/24 empagliflozin 10 mg tablet 10 mg PO DAILY 02/14/24 02/18/24 (Jardiance) insulin glargine 100 unit/mL (3 17 unit subcut QPM 02/14/24 02/18/24 mL) subcutaneous pen (Lantus Solostar U-100 Insulin) lorazepam 0.5 mg tablet 0.5 mg PO TID PRN 02/14/24 02/18/24 metformin 500 mg tablet 1,000 mg PO BID 02/14/24 02/18/24 varenicline 0.5 mg (11)-1 mg (42) See Rx Instructions PO PER PKG DIR 02/14/24 02/18/24 tablets in a dose pack ([employer] Starting Month Box) cephalexin 500 mg tablet 500 mg PO QID 5 days #20 tabs 02/18/24 Previous Rx's ?Medication ?Instructions ?Recorded Blood Glucose Monitoring #1 ea 01/21/20 (blood-glucose meter) Blood Glucose Test (blood sugar #200 ea 01/21/20 diagnostic) lancets 31 gauge #200 ea 01/21/20 amitriptyline 10 mg tablet 10 mg PO QHS #30 tabs 05/25/20 chlorhexidine gluconate 0.12 % 15 ml mucous membrane BID dental 11/08/23 mouthwash infection #1,893 mL cephalexin 500 mg tablet 500 mg PO QID 5 days #20 tabs 02/18/24 Allergies Allergy/AdvReac Type Severity Reaction Status Date / Time erythromycin base Allergy Severe Severe GI, Unverified 04/28/21 19:17 vomiting General Stated Complaint: Laceration KATELYNN: 4 Review of Systems Constitutional Constitutional: Denies chills and Denies fever(s) Cardiovascular Cardiovascular: Denies syncope Musculoskeletal Musculoskeletal: Denies joint swelling and Denies limited range of motion Integumentary/Breasts Skin/Breast: Reports as per HPI and Reports wounds Neurologic Neurologic: Denies syncope Exam Const General: cooperative, no acute distress and not ill appearing Orientation: alert, awake and oriented x3 HENMT Mouth: moist mucous membranes Resp Effort & Inspection: normal respiratory effort, able to speak in complete sentences and no respiratory distress Neuro General: patient alert, patient awake, patient oriented x3, moves all extremities and no focal motor deficits Sensory Exam: no sensory deficits noted Extrem General: normal exam except as noted Right lower extremity: foot Details: normal capillary refill and laceration plantar great toe Details: L-shaped, involving subcutaneous tissue, with motor nerve function intact and with sensation intact; not actively bleeding Course Vital Signs Vital signs: Vital Signs Temperature 37.0 C 02/18/24 12:45 Pulse 89 02/18/24 12:45 Respiratory Rate 16 02/18/24 12:45 Blood Pressure 133/85 02/18/24 12:45 Pulse Oximetry 99 02/18/24 12:45 Temperature 37.0 C 02/18/24 12:45 Temperature Source Temporal Artery Scan 02/18/24 12:45 Pulse 89 02/18/24 12:45 Respiratory Rate 16 02/18/24 12:45 Respiratory Effort Normal, Non-Labored 02/18/24 12:49 Blood Pressure 133/85 02/18/24 12:45 Blood Pressure Position Sitting 02/18/24 12:45 Pulse Oximetry 99 02/18/24 12:45 Oxygen Delivery Method Room Air 02/18/24 12:45 Oxygen Flow Rate 0 02/18/24 12:45 Pain Level 5 02/18/24 12:45 Medical Decision Making Patient presenting to the emergency department for chief complaint of right great toe laceration. Patient reports that he was tent camping and while trying to go to the bathroom overnight he lacerated his right great toe. Patient denies any other injury or trauma. Patient does have history of diabetes. Physical exam shows a nonbleeding semisuperficial wound to the plantar aspect of the right great toe. Exam otherwise unremarkable. Patient did state that he washed the wound out with soap and water prior to arrival. Given that patient is a diabetic and timeframe of injury I do not feel that wound closure would be beneficial and has actual higher risk involved. This was discussed with patient who is in agreement with plan of care of secondary healing and antibiotics for prophylaxis given past medical history. After discussion of diagnosis and plan of care patient has no further needs, questions, or concerns and states clear understanding to return to the emergency department for any worsening symptoms. This documentation was generated using [email or web address] system, please disregard any oddities of phrase or misspellings. Quality:SDOH Health Related Social Needs: No Data to Display PFSH All Active Problems (Updated 02/18/24 @ 13:32 by Nadir Ortiz NP) Laceration of great toe of right foot (Acute) Smoker (Acute 01/26/18) Abscess, dental (Acute) Lipoma (Acute) removal 03/16/21 Pancreatic insufficiency (Acute) Diabetes mellitus type 2 in nonobese (Acute) Elevated white blood cell count, unspecified (Acute) SIRS (systemic inflammatory response syndrome) (Acute) Acute necrotizing pancreatitis (Acute) DVT prophylaxis (Acute) Discharge planning issues (Acute) Hyperglycemia (Acute) Pancreatitis (Acute) Irritable bowel syndrome (Chronic) Alcohol abuse (Chronic) Pancreatitis (Acute) Tobacco dependence (Acute) Hypomagnesemia (Acute) Surgical History History of surgical removal of skin lesion (~03/16/21) lipoma, back of head Arthroplasty of knee Social History Smoking/Tobacco Use Status: Current every day Tobacco Type: cigarettes Smoking risk assessment performed?: Yes Alcohol Intake: former Drug use: Occasionally Substance use type: marijuana Details: uses in the evenings Housing: house Current gender identity: male Do you feel safe at home: Yes Do you feel safe in your relationship?: Yes
--- NOTE | 2024-02-18 13:41 | NUR.NOTE ---
Referral given to Care Managers to assist Pt in setting up an appointment with his Primary Care Provider on Monday or Monday for rechecking Toe Laceration.
[2024-02-18] MEDS: Cephalexin 500 MG CAP PO (13:51)
== END 2024-02-18 13:56 | disposition home or self-care (01) ==
LOC: ER 13:46
PROVIDERS: Emergency Provider Nurse Practitioner Family; PCP Nurse Practitioner Adult Health
DX: S91.111A Laceration without foreign body of right great toe without damage to nail, initial encounter (principal); E11.9 Type 2 diabetes mellitus without complications; F17.210 Nicotine dependence, cigarettes, uncomplicated; Z79.82 Long term (current) use of aspirin; Z79.84 Long term (current) use of oral hypoglycemic drugs; Z79.4 Long term (current) use of insulin; W26.8XXA Contact with other sharp object(s), not elsewhere classified, initial encounter; Y93.01 Activity, walking, marching and hiking; Y92.833 Campsite as the place of occurrence of the external cause
CPT/HCPCS: 99283

== ENCOUNTER 2024-05-07 15:24 | Outpatient (CLI) | payer BC, SELFPAY ==
--- NOTE | 2024-05-07 09:14 | DI.RAD_ITS ---
Exam(s) XR SHOULDER RT COMPLETE 2+V EXAM: XR SHOULDER RT COMPLETE 2+V CLINICAL HISTORY: evaluate shoulder. TECHNIQUE: 2D digital imaging was performed of the right shoulder. Two images were obtained. Axill kirk and Grashey views were obtained. COMPARISON: CR XR CHEST 1V IN DI DEPT from 12/31/2019 FINDINGS: BONES: No acute fracture is present. No bony destructive lesion is seen. JOINTS: No dislocation present. The glenohumeral joint is well maintained as is the acromioclavicular joint. There does appear to be mild spurring at the lateral aspect of the acromion. SOFT TISSUE: Normal. IMPRESSION: No acute abnormality is identified. DATA REPOSITORY: RADIATION DOSE DELIVERED:
--- NOTE | 2024-05-07 09:14 | DI.RAD_ITS ---
Exam(s) XR SHOULDER LT COMPLETE 2+V EXAM: XR SHOULDER LT COMPLETE 2+V CLINICAL HISTORY: evaluate shoulder. TECHNIQUE: 2D digital imaging was performed of the left shoulder. Two images were obtained. Grashe y and axillary views were obtained. COMPARISON: No exams were available for comparison FINDINGS: BONES: No acute fracture is present. No bony destructive lesion is seen. There is small projections a long the lateral aspect of the acromion. JOINTS: No dislocation present. The acromioclavicular and glenohumeral joints are well maintained. SOFT TISSUE: Visualized lungs are clear. IMPRESSION: No acute abnormality. DATA REPOSITORY: RADIATION DOSE DELIVERED:
== END 2024-05-07 15:25 | disposition home or self-care (01) ==
LOC: DIORS 15:24
PROVIDERS: PCP Physician Assistant Medical; Visit Provider Student in an Organized Health Care Education/Training Program
DX: M25.512 Pain in left shoulder (principal); M25.511 Pain in right shoulder
CPT/HCPCS: 73030

== ENCOUNTER 2024-06-04 02:54 | Outpatient (CLI) | payer BC, SELFPAY ==
--- NOTE | 2024-06-04 08:20 | DI.MRI_ITS ---
Exam(s) MR UPPER JOINT LT WO EXAM: MR UPPER JOINT LT WO CLINICAL HISTORY: L SHOULDER PAIN,TENDINOPATHY LT BICEPS TENDON,M67.922. TECHNIQUE: Multiplanar multisequence MRI was performed. COMPARISON: Plain films March 16 FINDINGS: BONES: There is no fracture or contusion pattern. Tiny degenerative cysts at greater tuberosity. S purring at tip of acromion. JOINTS:The acromioclavicular joint shows minimal inferior spurring. The glenohumeral joint is normal . TENDONS: Supraspinatus: Mild thickening and high signal. No focal tear. Infraspinatus: Unremarkable. Subscapularis: Unremarkable. Teres Minor: Unremarkable. Biceps and Galloway: Unremarkable. MUSCLES: Unremarkable. GLENOID LABRUM: Unremarkable on this noncontrast examination. SOFT TISSUES: Unremarkable. OTHER: Subacromial and subdeltoid bursae shows trace fluid.. IMPRESSION: Tendinitis of the supraspinatus. The biceps tendon appears normal. DATA REPOSITORY:
== END 2024-06-04 03:14 ==
LOC: DI 02:55
PROVIDERS: PCP Physician Assistant Medical; Visit Provider Student in an Organized Health Care Education/Training Program
DX: M67.814 Other specified disorders of tendon, left shoulder (principal)
CPT/HCPCS: 73221

== ENCOUNTER 2024-06-24 07:34 | Day surgery (SDC) | payer BC, SELFPAY ==
--- NOTE | 2024-06-23 15:27 | W.ANESPRE ---
General Info Date of Service Date Performed: 06/24/24 Height: 5 ft 7 in Weight: 78.642 kg Body Mass Index (BMI): 27.1 Surgical Procedure: Operation Date: 06/24/24 11:20 Proposed Procedure Side Surgeon shweta Sena MD Meds Allergies and Home Medications Allergies Allergy/AdvReac Type Severity Reaction Status Date / Time erythromycin base AdvReac Severe Severe GI, Verified 06/24/24 10:28 vomiting Home Medication ?Medication ?Instructions ?Recorded Blood Glucose Monitoring #1 ea 01/21/20 (blood-glucose meter) Blood Glucose Test (blood sugar #200 ea 01/21/20 diagnostic) lancets 31 gauge #200 ea 01/21/20 atorvastatin 40 mg tablet 40 mg PO DAILY 02/25/21 melatonin 10 mg capsule 10 mg PO HS PRN 02/25/21 chlorhexidine gluconate 0.12 % 15 ml mucous membrane BID dental 11/08/23 mouthwash infection #1,893 mL cholecalciferol (vitamin D3) 1,250 1,250 mcg PO QWEEK 02/14/24 mcg (50,000 unit) capsule cyclobenzaprine 10 mg tablet 20 mg PO HS 02/14/24 empagliflozin 10 mg tablet 10 mg PO DAILY 02/14/24 (Jardiance) metformin 500 mg tablet 1,000 mg PO BID 02/14/24 aspirin 81 mg tablet,delayed 81 mg PO DAILY 03/06/24 release amitriptyline 10 mg tablet 200 mg PO QHS 05/07/24 diclofenac potassium 50 mg tablet 75 mg PO BID 05/07/24 insulin glargine 100 unit/mL (3 20 unit subcut QPM 06/18/24 mL) subcutaneous pen (Lantus Solostar U-100 Insulin) varenicline 1 mg tablet (Chantix) 1 mg PO BID 06/18/24 terbinafine HCl 250 mg tablet 250 mg PO DAILY 06/24/24 Current Visit Medications: Current Medications Generic Name Dose Route Start Last Admin Trade Name Freq PRN Reason Stop Dose Admin Ringer's Solution 1,000 mls @ 0 mls/hr 06/24/24 06:00 IV 07/21/24 23:59 INFUSION HARSHA IV Miscellaneous Supplies 1 each 06/24/24 06:00 Iv Access IV 07/21/24 23:59 DIRECTED HARSHA Sodium Chloride 0 ml 06/24/24 06:00 Normal Saline Flush 10 Ml Syr IV 07/21/24 23:59 PRN PRN Sodium Chloride 0 ml 06/24/24 06:00 Normal Saline 10 Ml Vial IJ 07/21/24 23:59 DIRECTED PRN Sterile Water 0 ml 06/24/24 06:00 Water,Injection,Sterile 10 Ml Vial IJ 07/21/24 23:59 DIRECTED PRN PFSH Active Problems Active Problems: Problem Status Onset Code No-show for appointment Acute Z91.199 Subacromial bursitis of both shoulders Acute M75.51, M75.52 Tendinopathy of right biceps tendon Acute M67.921 Tendinopathy of left biceps tendon Acute M67.922 Smoker Acute 01/26/18 F17.200 Abscess, dental Acute K04.7 Lipoma Acute D17.9 Pancreatic insufficiency Acute K86.89 Diabetes mellitus type 2 in nonobese Acute E11.9 Elevated white blood cell count, unspecified Acute D72.829 SIRS (systemic inflammatory response syndrome) Acute R65.10 Acute necrotizing pancreatitis Acute K85.91 DVT prophylaxis Acute Z29.9 Discharge planning issues Acute Z02.9 Hyperglycemia Acute R73.9 Acute kidney injury Resolved N17.9 Pancreatitis Acute K85.90 Irritable bowel syndrome Chronic K58.9 Alcohol abuse Chronic F10.10 Pancreatitis Acute K85.90 Tobacco dependence Acute F17.200 Hypomagnesemia Acute E83.42 Surgical History Surgical History History of surgical removal of skin lesion (~03/16/21) lipoma, back of head Arthroplasty of knee Tobacco Smoking/Tobacco Use Status: Current every day Tobacco Type: cigarettes Alcohol Alcohol Intake: former Substance Use Substance use: Occasionally Substance use type: marijuana Details: uses in the evenings Vital Signs and Lab Results Vital Signs Most Recent Vital Signs in EMR: Temp Pulse Resp BP Pulse Ox 36.6 C 90 22 148/97 H 100 06/24/24 10:36 06/24/24 10:36 06/24/24 10:36 06/24/24 10:36 06/24/24 10:36 Lab Results Blood Type / Crossmatch: No Data to Display Complete Blood Count: No Data to Display Complete Metabolic Panel: No Data to Display Liver Function Panel: No Data to Display Coagulation Panel: No Data to Display Cardiac Panel: No Data to Display Arterial Blood Gas: No Data to Display Venous Blood Gas: No Data to Display Pancreas Panel: No Data to Display Thyroid Panel: No Data to Display Infectious Disease: No Data to Display Blood Cultures: No Data to Display Toxicology Panel: No Data to Display Anesthesia Assessment and Plan Anesthesia History Personal History: No History of Anesthesia Complications Family History: No Family History of Anesthesia Complications Exercise Tolerance Exercise Tolerance: Metabolic Equivalents>4 Cardiac & Pulmonary Exam Cardiac Exam: Normal S1/S2 Heart Sounds Pulmonary Exam: Clear Bilateral Breath Sounds Implantable Cardiac Device Does patient have a Pacemaker or an ICD?: No Airway Exam Known Difficult Airway: No Mallampati Class: 3 Mouth Opening: Narrow (< 3cm) Thyromental Distance: Less than 3 cm Neck Range of Motion: Full ROM Neck Circumference: Normal Teeth Condition: Generalized Poor Dentition ASA Classification ASA Score: ASA 2 Emergency Case?: No NPO Status NPO Status: NPO Clears >2 hours, Solids >8 hours Anesthesia Plan Resuscitation Status: Full Code Anesthesia Technique: General Anesthesia Airway Planned: Natural Airway Monitors Used: Standard Monitors Preoperative Comments:: 53 yo male for colo. Sig PMHx: DM2 (jardiance, Lantus, metformin. last A1c in our system 8.7), smoker, occ EtOh/cannabis,
--- NOTE | 2024-06-23 16:32 | PDOC.DSDIS_ITS ---
Date of service: 06/24/24 Discharge Plan Disposition Patient Disposition: Home Condition: Good Discharge Details Reason For Visit: screening colonoscopy Attending Provider: Dominick Sena Primary Care Provider: Nisha Cook Home Meds and New Rx's Prescriptions: Continued amitriptyline 10 mg tablet 200 mg PO QHS Patient Comments: pt states dose is 200mg 02/18/24 varenicline [Chantix] 1 mg tablet 1 mg PO BID (DME) Blood Glucose Test Strip See Rx Instructions .ROUTE .MEDSUPPLY Qty: 200 3RF Rx Instructions: Twice daily (DME) blood-glucose meter [Blood Glucose Monitoring] Kit See Rx Instructions .ROUTE .MEDSUPPLY Qty: 1 0RF Rx Instructions: As directed (DME) lancets 31 gauge misc See Rx Instructions .ROUTE .MEDSUPPLY Qty: 200 0RF Rx Instructions: use bid melatonin 10 mg capsule 10 mg PO HS PRN atorvastatin 40 mg tablet 40 mg PO DAILY cholecalciferol (vitamin D3) 1,250 mcg (50,000 unit) capsule 1,250 mcg PO QWEEK cyclobenzaprine 10 mg tablet 20 mg PO HS Jardiance 10 mg tablet 10 mg PO DAILY metformin 500 mg tablet 1,000 mg PO BID aspirin 81 mg tablet,delayed release (DR/EC) 81 mg PO DAILY diclofenac potassium 50 mg tablet 75 mg PO BID insulin glargine [Lantus Solostar U-100 Insulin] 100 unit/mL (3 mL) insulin pen 20 unit subcut QPM chlorhexidine gluconate 0.12 % mouthwash 15 ml mucous membrane BID Qty: 1893 0RF terbinafine HCl 250 mg tablet 250 mg PO DAILY Discontinued polyethylene glycol 3350 17 gram/dose powder 238 g PO ONCE Qty: 238 0RF Rx Instructions: take per colonoscopy instructions bisacodyl [Dulcolax (bisacodyl)] 5 mg tablet,delayed release (DR/EC) 5 mg PO ONCE Qty: 4 0RF Rx Instructions: take per colonoscopy instructions Discharge Instructions Instructions: Pilonidal cyst Additional Instructions: Diogo, it was very good seeing you today, and I hope you are comfortable throughout the colonoscopy. Everything went very smoothly. I did not see any signs of tumors or polyps anywhere within the length of your large intestine. Generally, I recommend the patient to have a negative screening colonoscopy, undergo with her next test at 10 years. Your family history makes this a little more challenging. Technically, with 1 single second-degree relative, the 10- year follow-up would still be very reasonable. A more aggressive approach would be to repeat the colonoscopy in 5 years. There is not really a right or wrong answer. I usually recommend that patients give this some thought, discussed with her primary care physician. If the procedure is well-tolerated, and covered by your health insurance company, 5-year approach is probably very reasonable. Alternatively, if this procedure causes a fair amount of stress, and/or you have to pay [id number], then extending it out to 8 or 10 years would also be very reasonable. Incidentally, on the outside, you have a small pilonidal cyst. This is a little indentation of your skin near the area of your tailbone. These can get infected and inflamed, and often times patients elect to have these surgically removed to help prevent that from happening. This is almost certainly been present your entire life, and now that you are in middle-age, I think you have some options in terms of how you want to deal with it. If it does not ever cause you any issues, then there is really no strong reason to remove it. Alternatively, if you find this bothersome, we could certainly talk in more detail about the operation to remove it. I attached a little bit of information here about pilonidal cyst in general, so give that some consideration, and let me know if you have any questions. 1. If tolerated, consume a soft, low fiber diet for 1-2 days. [address] not drive, drink alcohol, operate machinery, make critical decisions, or do activities that require coordination or balance for 24 hours. 3. Because air was put into your colon during the procedure, expelling air from your rectum (passing gas or farting) is normal. 4. You may not have a bowel movement for 1-3 days because of the colonoscopy prep. This is normal. 5. Go directly to the emergency room if you notice any of the following: Develop chills (warm to touch), or if you have a thermometer and your temperature is above 101 Difficulty breathing or difficultly swallowing Persistent vomiting Severe abdominal pain, other than gas cramps Severe chest pain Black, tarry stools Any bleeding ? exceeding one tablespoon 6. Call your physician if the site where your intravenous was started becomes red, swollen, painful, and warm to touch. 7. Your physician has reviewed your pre-procedure medications. Please continue to take those medications as previously ordered. You will be given specific information/education regarding any changes to your medications before leaving. Activity:: Activity as Tolerated Diet:: As Tolerated Discharge Orders Discharge Orders: Discharge Order (Routine); Ordered 06/23/24 Ordered By: Dominick Sena DS: Diagnosis Discharge Diagnosis (1) Encounter for screening colonoscopy: Status: Acute Asessment and Plan: Negative screening colonoscopy
--- NOTE | 2024-06-23 16:35 | COLE_ITS ---
Date of service: 06/24/24 Time of Service: 11:34 Colonoscopy Report Date of procedure: 06/24/24 Pre-op diagnosis general: screening colonoscopy Post-op diagnosis procedure note: other (Pilonidal cyst; otherwise negative screening colonoscopy) Procedure: colonoscopy Surgeon: Dominick Sena Anesthesia Type: General:No Airway Estimated blood loss (mL): 0 Pathology: none sent Complications: None Disposition: same day Indications: Diogo is a 53 year old man who needs a screening colonscopy Prep: Miralax/Dulcolax Procedure Start Time: 11:07 Procedure End Time: 11:23 Retraction Time: 10 Findings: Pilonidal cyst Procedure Description: After the induction of anesthesia, and with the patient in left lateral decubitus position, I began by performing an external anorectal exam.? There is evidence of a small, noninflamed pilonidal cyst. Otherwise perianal skin and perineum is normal.? There was no evidence of external hemorrhoids.? Next, I performed a digital rectal exam.? I did not appreciate any abnormal findings.? Next, I advanced a colonoscope into the rectal vault.? I performed retroflexion.? This appeared normal.? Using insufflation, I then advanced the colonoscope beyond the rectal folds and into the sigmoid colon before advancing towards the cecum.? The scope was noted to be in the cecum by identification of the ileocecal valve and appendiceal orifice.? I then began withdrawing the colonoscope using repeated irrigation as necessary for full evaluation of the colonic mucosa. ?Once the scope was withdrawn to the level of the rectum, great care was taken to examine portions of the rectal folds.? I saw no signs of tumors, polyps, or any other pathology. Finally, the scope was withdrawn and the patient was brought to the same-day surgery recovery unit as the anesthetic wore off. ?The findings and instructions were shared with the patient prior to discharge. [place] Bowel Prep [place] Bowel Prep Right Colon: 2 Left Colon: 2 Transverse Colon: 3 Total Score: 7
[2024-06-24 10:36] VITALS: BP 148/97; PULSE 90; RESP 22; TEMP 36.6; O2SAT 100
[2024-06-24] MEDS: Normal Saline Flush 10 ML SYR IV (10:45)
[2024-06-24 10:46] VITALS: BMI 27.1
[2024-06-24 11:28] VITALS: BP 145/93; PULSE 82; RESP 20; TEMP 36.5; O2SAT 100
--- NOTE | 2024-06-24 11:46 | W.ANESPOSTOP ---
Postoperative Evaluation Date, Time and Location Date Performed: 06/24/24 Time Performed: 11:47 Patient Location: Day Surgery Unit Vital Signs Most Recent Imported Vital Signs: Most Recent Vital Signs Temp Pulse Resp BP Pulse Ox 36.5 C 82 20 145/93 H 100 06/24/24 11:28 06/24/24 11:28 06/24/24 11:28 06/24/24 11:28 06/24/24 11:28 Pain Score Most Recent Pain Score: Most Recent Pain Score Pain Level 0 06/24/24 11:28 Assessment Mental Status: Awake (Alert & Oriented to Patient Baseline) Airway and Respiratory Function: Patent airway with normal (patient baseline) respiratory exam Cardiovascular Function: Hemodynamically Stable Hydration Status: Adequately Hydrated Nausea & Vomiting: No Nausea or Vomiting Pain: Pt. Denies Any Pain Peripheral Nerve Block: Patient did not receive a nerve block
[2024-06-24 11:50] VITALS: BP 138/98; PULSE 77; RESP 20; TEMP 36.5; O2SAT 100
== END 2024-06-24 12:04 | disposition home or self-care (01) ==
PROVIDERS: PCP Physician Assistant Medical; Visit Provider Surgery
PROC: 0DJD8ZZ Inspection of Lower Intestinal Tract, Via Natural or Artificial Opening Endoscopic (ICD-10-PCS; CPT 45378; principal; 2024-06-24 11:15)
DX: Z12.11 Encounter for screening for malignant neoplasm of colon (principal)
CPT/HCPCS: 45378; J2704

== ENCOUNTER 2024-08-01 21:32 | Emergency (ER) | payer BC, SELFPAY ==
[2024-08-01 21:35] VITALS: BP 145/91; PULSE 83; RESP 18; TEMP 36.4; O2SAT 98
--- NOTE | 2024-08-01 21:41 | ED.GENADUL_ITS ---
Discharge Plan Disposition Patient Disposition: Home Condition: Stable Discharge Details Clinical Impression: Dental infection Primary Care Provider: Nisha Cook ED Provider: Jairon Whalen Home Meds and New Rx's Prescriptions: New amoxicillin-pot clavulanate 875-125 mg tablet 1 tab PO BID 10 Days Qty: 20 0RF Continued varenicline tartrate [Chantix] 1 mg tablet 1 mg PO BID (DME) Blood Glucose Test Strip See Rx Instructions .ROUTE .MEDSUPPLY Qty: 200 3RF Rx Instructions: Twice daily (DME) blood-glucose meter [Blood Glucose Monitoring] Kit See Rx Instructions .ROUTE .MEDSUPPLY Qty: 1 0RF Rx Instructions: As directed (DME) lancets 31 gauge misc See Rx Instructions .ROUTE .MEDSUPPLY Qty: 200 0RF Rx Instructions: use bid melatonin 10 mg capsule 10 mg PO HS PRN atorvastatin 40 mg tablet 40 mg PO DAILY cyclobenzaprine 10 mg tablet 20 mg PO HS Jardiance 10 mg tablet 10 mg PO DAILY metformin 500 mg tablet 1,000 mg PO BID aspirin 81 mg tablet,delayed release (DR/EC) 81 mg PO DAILY diclofenac potassium 50 mg tablet 75 mg PO BID insulin glargine [Lantus Solostar U-100 Insulin] 100 unit/mL (3 mL) insulin pen 20 unit subcut QPM chlorhexidine gluconate 0.12 % mouthwash 15 ml mucous membrane BID Qty: 1893 0RF terbinafine HCl 250 mg tablet 250 mg PO DAILY amitriptyline 100 mg tablet 200 mg PO HS Patient Comments: TAKE TWO TABLETS BY MOUTH EVERY EVENING FOR PAIN AND SLEEP Discharge Instructions Instructions: Amoxicillin and Clavulanate, Dental Pain ED Additional Instructions: You were seen in the emergency department for dental infection. There is no visible abscess to drain. I am starting you on Augmentin for dental infection. I have sent your prescription to [facility] in [place], please be taking 1000 mg of Tylenol every 6 hours, perform salt water gargles 3 times per day, look at home remedies like clove pouches for dental pain. Please follow-up with dentist, return for any vocal changes, difficulty opening or closing her jaw, excessive drooling. Referrals: Nisha Cook [Primary Care Provider] - Discharge Data Discharge Date/Time-TO BE ENTERED AT DEPARTURE: 08/01/24 23:02 HPI General Date/Time Provider Initiated Documentation: 08/01/24 21:33 . HPI Narrative: 53 year-old male presents to ED today by POV/ambulating with a chief complaint of dental pain with onset today. Quality described as throbbing, no radiation to fever, trismus, vocal changes, severe neck pain. Severity is described as 8/10. Palliating factors include took 1 leftover Keflex. Provoking factors include nothing specific. Events leading up to the incident/Associated Symptoms: Patient does not have dental care yet. Patient not anticoagulated. Related Data Home Medications ?Medication ?Instructions ?Recorded ?Confirmed Blood Glucose Monitoring #1 ea 01/21/20 08/01/24 (blood-glucose meter) Blood Glucose Test (blood sugar #200 ea 01/21/20 08/01/24 diagnostic) lancets 31 gauge #200 ea 01/21/20 08/01/24 atorvastatin 40 mg tablet 40 mg PO DAILY 02/25/21 08/01/24 melatonin 10 mg capsule 10 mg PO HS PRN 02/25/21 08/01/24 chlorhexidine gluconate 0.12 % 15 ml mucous membrane BID dental 11/08/23 08/01/24 mouthwash infection #1,893 mL cyclobenzaprine 10 mg tablet 20 mg PO HS 02/14/24 08/01/24 empagliflozin 10 mg tablet 10 mg PO DAILY 02/14/24 08/01/24 (Jardiance) metformin 500 mg tablet 1,000 mg PO BID 02/14/24 08/01/24 aspirin 81 mg tablet,delayed 81 mg PO DAILY 03/06/24 08/01/24 release diclofenac potassium 50 mg tablet 75 mg PO BID 05/07/24 08/01/24 insulin glargine 100 unit/mL (3 20 unit subcut QPM 06/18/24 08/01/24 mL) subcutaneous pen (Lantus Solostar U-100 Insulin) varenicline tartrate 1 mg tablet 1 mg PO BID 06/18/24 08/01/24 (Chantix) terbinafine HCl 250 mg tablet 250 mg PO DAILY 06/24/24 08/01/24 amitriptyline 100 mg tablet 200 mg PO HS 08/01/24 08/01/24 amoxicillin 875 mg-potassium 1 tab PO BID dental infection 10 08/01/24 clavulanate 125 mg tablet days #20 tabs Previous Rx's ?Medication ?Instructions ?Recorded Blood Glucose Monitoring #1 ea 01/21/20 (blood-glucose meter) Blood Glucose Test (blood sugar #200 ea 01/21/20 diagnostic) lancets 31 gauge #200 ea 01/21/20 chlorhexidine gluconate 0.12 % 15 ml mucous membrane BID dental 11/08/23 mouthwash infection #1,893 mL amoxicillin 875 mg-potassium 1 tab PO BID dental infection 10 08/01/24 clavulanate 125 mg tablet days #20 tabs Allergies Allergy/AdvReac Type Severity Reaction Status Date / Time erythromycin base AdvReac Severe Severe GI, Verified 08/01/24 21:37 vomiting General Stated Complaint: DentalOral KATELYNN: 4 Review of Systems All systems reviewed & are unremarkable except as noted in HPI and below Exam Narrative Exam Narrative: GENERAL APPEARANCE: Well-nourished, non-toxic, awake and alert, atraumatic, no acute distress. SKIN: Warm, pink, dry, intact, without rashes/lesions/ulcerations. HEAD: Normocephalic, atraumatic, normal hair distribution for gender/age. EYES: Normal conjunctiva, no exudates on lids/lashes. ENT: Nares patent, no circumoral cyanosis, no facial swelling, no trismus, no vocal changes, uvula midline, no gingival abscess present, diffuse dental caries NECK: Supple, trachea midline, painless cervical ROM. LUNGS/CHEST: Non-labored respirations, normal A/P diameter, symmetrical expansion, no chest wall deformity HEART (CV/PV): No peripheral edema, no JVD. ABDOMEN: Soft, non-distended, no guarding. MSK: Normal ROM, no swelling/deformity to bilateral UEs or LEs, moving all ex tremities without weakness, no cyanosis, spine midline without tenderness, normal curvature. NEURO: Mental Status AAOx4 - alert to person, place, time, events No facial droop, no forehead involvement. Motor: No focal weakness - strength 5/5 in bilateral UEs and LEs, proximal and distal, symmetric. Sensory: sensation intact to light touch globally. Gait normal: patient ambulated without ataxia into ED room. PSYCH: euthymic, cooperative, pleasant, appropriate speech Course Vital Signs Vital signs: Vital Signs Temperature 36.4 C L 08/01/24 21:35 Pulse 83 08/01/24 21:35 Respiratory Rate 18 08/01/24 21:35 Blood Pressure 145/91 H 08/01/24 21:35 Pulse Oximetry 98 08/01/24 21:35 Temperature 36.4 C L 08/01/24 21:35 Temperature Source Oral 08/01/24 21:35 Pulse 83 08/01/24 21:35 Respiratory Rate 18 08/01/24 21:35 Blood Pressure 145/91 H 08/01/24 21:35 Blood Pressure Position Sitting 08/01/24 21:35 Pulse Oximetry 98 08/01/24 21:35 Oxygen Delivery Method Room Air 08/01/24 21:35 Oxygen Flow Rate 0 08/01/24 21:35 Pain Level 8 08/01/24 21:35 Medical Decision Making This dictation utilizes [id number] dictation software and may contain unedited grammatical errors. 53 year-old male presents to ED today by POV/ambulating with a chief complaint of dental pain with onset today- focal to L upper front tooth. Quality described as throbbing, no radiation to fever, trismus, vocal changes, severe neck pain. Severity is described as 8/10. Palliating factors include took 1 leftover Keflex. Provoking factors include nothing specific. Events leading up to the incident/Associated Symptoms: Patient does not have dental care yet. Patients' m edical history: Noncontributory. Family and social history: Noncontributory. Pertinent exam findings / vital signs include no trismus, no vocal changes, uvula midline, no gingival abscess present, diffuse dental caries. Differential / pathologies of concern include dental infection, gingival abscess. Diagnostic studies of: -None. Interventions of: -Rx for Augmentin. ED Course/Assessment/Plan: 53-year-old male presents with left upper dental pain, no visible abscess, no trismus or vocal changes, started on Augmentin recommend he try to get on as many cancellation list for definitive dental care as possible, recommend therapeutic dosing of Tylenol and ibuprofen and homeopathic remedies for dental pain. Findings not consistent with gingival abscess, deep space infection. Disposition of dental infection. Patient verbalized understanding of the plan and return to ED criteria and engaged in shared decision making. Medical Records Medical records reviewed: Yes I reviewed the patient's medical records. Quality:SDOH Health Related Social Needs: No Data to Display PFSH All Active Problems (Updated 08/01/24 @ 21:52 by SYD Diaz) Dental infection (Acute) Arthritis of both hips (Acute) Encounter for screening colonoscopy (Acute) Subacromial bursitis of both shoulders (Acute) Tendinopathy of right biceps tendon (Acute) Tendinopathy of left biceps tendon (Acute) Smoker (Acute 01/26/18) Diabetes mellitus type 2 in nonobese (Acute) Tobacco dependence (Acute) Medical History (Updated 08/01/24 @ 21:52 by SYD Diaz) Lipoma removal 03/16/21 Pancreatitis Irritable bowel syndrome Acute necrotizing pancreatitis Pancreatic insufficiency Abscess, dental Sebaceous cyst (09/27/17) Elevated liver function tests (01/26/18) Surgical History (Updated 06/24/24 @ 14:00 by Rupinder Cardona) History of colonoscopy (~06/2024) History of arthroscopy of hip Hx of nasal septoplasty History of surgical removal of skin lesion (~03/16/21) lipoma, back of head Arthroplasty of knee Social History Smoking/Tobacco Use Status: Current every day Tobacco Type: cigarettes Smoking risk assessment performed?: Yes Alcohol Intake: former Drug use: Occasionally Substance use type: marijuana Housing: house Current gender identity: male Do you feel safe at home: Yes Do you feel safe in your relationship?: Yes
[2024-08-01] MEDS: oxyCODONE 5 MG TAB PO (21:54)
[2024-08-01] MEDS: Acetaminophen 500 MG TAB 1000 MG PO (21:54)
[2024-08-01] MEDS: Amoxicillin 875/Clav. 125 TAB PO (21:55)
--- OUTSIDE RECORDS SUMMARY | 2024-08-01 21:56 | XMS_ITS | Encounter Summary ---
Author Organization [facility] Address [address] [place] [address] Care Team Providers Care Cost And Sales Record Supervisor Name Role Phone CarlineYesenia trejo MOHAN Primary Care Provider [phone] Encounter Details Date Type Department Care Team (Latest Contact Info) Description 07/13/2023 Travel Social History Tobacco Use Types Packs/Day Years Used Date Smoking Tobacco: Every Day Cigarettes 0.8 36.4 Started: 03/14/1988 Smokeless Tobacco: Never Comments:not there yet Alcohol Use Standard Drinks/Week Comments Not Currently 0 (1 standard drink = 0.6 oz pur e alcohol) 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 December 24 Sex and Gender Information Value Date Recorded Sex Assigned at Male 07/02/2024 10:33 EST Legal Sex Male 17:50 EST Gender Identity Male 05/11/2021 15:39 EDT Sexual Orientation Not on file documented as of this encounter Functional Status * Are you deaf or do you have serious difficulty hearing? Answer Date of Assessment Author No 07/13/2023 15:29 EST Ashok Watters RN * Because of a physical, mental, or emotional condition, does this person have difficulty doing errands alone such as visiting a doctor's office or shopping? Answer Date of Assessment Author No 05/11/2021 16:02 EDT documented as of this encounter Mental Status * Because of a physical, mental, or emotional condition, does this person have serious difficulty concentrating, remembering, or making decisions? Answer Entry Date Author No 05/11/2021 16:02 EDT documented in this encounter Plan of Treatment Not on file documented as of this encounter Visit Diagnoses Not on filedocumented in this encounter Care Teams Cost And Sales Record Supervisor Relationship Specialty Start Date End Date Yesenia Morales NP [address] [place] [phone] PCP - General 06/14/21 documented as of this encounter
--- OUTSIDE RECORDS SUMMARY | 2024-08-01 21:56 | XMS_ITS | Referral Summary ---
Author Organization [facility] Address [address] [place] [address] Care Team Providers Care Sand Car Worker Name Role Phone Carlinemaya Yesenia MOHAN Primary Care Provider [phone] Encounters Date Type Department Care Team Description 07/02/2024 10:33 EST - 07/02/2024 23:59 EST Hospital Encounter [facility] MRI [address] [place] [address] Spondylosis without myelopathy or radiculopathy, lumbar region Discharge Disposition: Home or Self Care from Last 3 Months Allergies Active Allergy Reactions Criticality Noted Date Comments Cortisone Insomnia 05/11/2021 Steroids Erythromycin Nausea And Vomiting 12/24/2017 Medications terbinafine HCL (LAMISIL) 250 mg tablet daily. 1 Active metFORMIN (GLUCOPHAGE-XR) 500 mg ER tablet Take 2 Tablets by mouth 2 times daily. 1 Active melatonin 10 mg capsule Take 10 mg by mouth at bedtime. 1 Active atorvastatin (LIPITOR) 40 mg tablet Take 1 Tablet by mouth every evening. 1 Active amitriptyline (ELAVIL) 10 mg tablet 10 Tablets at bedtime. 1 Active diphenhydrAMINE -acetaminophen 25-500 mg tablet Take 2 Tablets by mouth. Most nights 1 Active lancets by not applicable route. 0 Active blood glucose meter by not applicable route. 0 Active BLOOD SUGAR DIAGNOSTIC, DISC MISC by not applicable route. 0 Active acetaminophen (TYLENOL) 500 mg tablet Take 1,000 mg by mouth as needed for Pain. Active cyclobenzaprine (FLEXERIL) 10 mg tablet TAKE TWO TABLETS BY MOUTH AT BEDTIME NEEDED FOR PAIN. USE AT BEDTIME DUE TO SEDATION 2 Active aspirin 81 mg EC tablet Take 1 Tablet by mouth daily. Active ibuprofen (MOTRIN) 200 mg tabletIndicatio ns:pain Take 4 Tablets by mouth at bedtime as needed for Pain. Active doxycycline (VIBRA-TABS) 100 mg tablet Take 1 Tablet by mouth 2 times daily. 28 Tablet 3 Active Additional Information Patient not taking.Reported on 10/19/2023 LANTUS SOLOSTAR U-100 INSULIN 100 unit/mL (3 mL) injection pen Inject 14 Units into the skin once daily. 4 Active FREESTYLE KVNG 3 SENSOR device Use as directed. 08/23/19 2 4 Active cholecalciferol (VITAMIN D3) 1,250 mcg (50,000 unit) capsule Take 1 Capsule by mouth once a week. Active canagliflozin (INVOKANA ORAL) Take 1 Tablet by mouth daily. Active Active Problems Problem Noted Date Diagnosed Date Finger infection 07/13/2023 Laceration of right thumb with infection 023 Left hip pain 12/28/2021 Overview (12/28/2021): Added automatically from request for surgery [id number] Osteonecrosis of both hips ([facility]) 06/22/2021 Social History Tobacco Use Types Packs/Day Years Used Date Smoking Tobacco: Every Day Cigarettes 0.8 36.4 Started: 03/14/1988 Smokeless Tobacco: Never Tobacco Cessation:Ready to Q uit: Not Asked; Counseling Given: Not Answered Comments:not there yet Alcohol Use Standard Drinks/Week Comments Not Currently 0 (1 standard drink = 0.6 oz pur e alcohol) 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 December 24 Sex and Gender Information Value Date Recorded Sex Assigned at Male 07/02/2024 10:33 EST Legal Sex Male 17:50 EST Gender Identity Male 05/11/2021 15:39 EDT Sexual Orientation Not on file Last Filed Vital Signs Vital Sign Reading Time Taken Comments Blood Pressure 144/92 11/03/2023 1505 EDT Pulse 70 07/13/2023 1530 EST Temperature 36.4 ??C (97.5 ??F) 11/03/2023 1358 EDT Respiratory Rate 16 11/03/2023 1505 EDT Oxygen Saturation 99% 11/03/2023 1505 EDT Inhaled Oxygen Concentration - - Weight 70.3 kg (155 lb) 11/03/2023 1358 EDT Height 168.9 cm (5' 6.5) 11/03/2023 1358 EDT Body Mass Index 24.64 11/03/2023 1358 EDT Functional Status * Are you deaf or do you have serious difficulty hearing? Answer Date of Assessment Author No 07/13/2023 15:29 EST Ashok Watters RN * Because of a physical, mental, or emotional condition, does this person have difficulty doing errands alone such as visiting a doctor's office or shopping? Answer Date of Assessment Author No 05/11/2021 16:02 EDT Mental Status * Because of a physical, mental, or emotional condition, does this person have serious difficulty concentrating, remembering, or making decisions? Answer Entry Date Author No 05/11/2021 16:02 EDT Plan of Treatment Not on file Procedures Procedure Name Priority Date/Time Associated Diagnosis Comments MR LUMBAR SPINE WO CONTRAST Routine 07/02/2024 11:31 EST Spondylosis without myelopathy or radiculopathy, lumbar region from Last 3 Months Results * MR LUMBAR SPINE WO CONTRAST (07/02/2024 11:31 EST) Anatomical Region Laterality Modality Spine Magnetic Resonan ce 07/02/2024 11:0 1 EST Impressions 07/03/2024 18:52 EST Stable mild degenerative changes for age. Mild neural foraminal stenosis bilaterally at L4-L5 and L5-S1 as above. THIS DOCUMENT HAS BEEN ELECTRONICALLY SIGNED BY RUTH CORTES MD FOR ANY QUESTIONS OR CONCERNS REGARDING THIS REPORT PLEASE CALL [facility] AT [phone] Narrative 07/03/2024 18:52 EST PROCEDURE INFORMATION: Exam: MR Lumbar Spine Without Contrast Exam date and time: 07/02/2024 11:01 Age: 53 years old Clinical indication: Spondylosis without myelopathy or radiculopathy, lumbar region; Other: Low back pain with occasional ble radic in l5 pattern R/O stenosis TECHNIQUE: Imaging protocol: Magnetic resonance imaging of the lumbar spine without contrast. COMPARISON: MR LUMBAR SPINE WO CONTRAST 06/14/2021 20:03 FINDINGS: Bones/joints: No acute fracture or subluxation. Normal lumbar lordosis. Normal signal in bone marrow for age on noncontrast imaging. Spinal cord: Visualized cord, conus medullaris and cauda equina are unremarkable without compression. L1-L2: Disc desiccation, minimal broad-based disc bulge, no stenosis. Facet hypertrophy. L2-L3: Disc desiccation, minimal broad-based disc bulge, no significant stenosis. Facet hypertrophy. L3-L4: No significant disc disease and no significant stenosis. Thickening of the ligamentum flavum. Facet hypertrophy. L4-L5: Disc desiccation, minimal broad-based disc bulge, mild bilateral neural foraminal stenosis similar to prior. Thickening of the ligamentum flavum. Facet hypertrophy. L5-S1: No significant disc disease. Mild bilateral neural foraminal stenosis primarily due to facet hypertrophy, similar to prior. There is no central canal stenosis at any point in the lumbar spine. Soft tissues: Mild dependent subcutaneous edema. Procedure Note Ruth Cortes MD - 07/03/2024 PROCEDURE INFORMATION: Exam: MR Lumbar Spine Without Contrast Exam date and time: 07/02/2024 11:01 Age: 53 years old Clinical indication: Spondylosis without myelopathy or radiculopathy, lumbar region; Other: Low back pain with occasional ble radic in l5 pattern R/O stenosis TECHNIQUE: Imaging protocol: Magnetic resonance imaging of the lumbar spine without contrast. COMPARISON: MR LUMBAR SPINE WO CONTRAST 06/14/2021 20:03 FINDINGS: Bones/joints: No acute fracture or subluxation. Normal lumbar lordosis. Normal signal in bone marrow for age on noncontrast imaging. Spinal cord: Visualized cord, conus medullaris and cauda equina are unremarkable without compression. L1-L2: Disc desiccation, minimal broad-based disc bulge, no stenosis. Facet hypertrophy. L2-L3: Disc desiccation, minimal broad-based disc bulge, no significant stenosis. Facet hypertrophy. L3-L4: No significant disc disease and no significant stenosis. Thickening of the ligamentum flavum. Facet hypertrophy. L4-L5: Disc desiccation, minimal broad-based disc bulge, mild bilateral neural foraminal stenosis similar to prior. Thickening of the ligamentum flavum. Facet hypertrophy. L5-S1: No significant disc disease. Mild bilateral neural foraminal stenosis primarily due to facet hypertrophy, similar to prior. There is no central canal stenosis at any point in the lumbar spine. Soft tissues: Mild dependent subcutaneous edema. IMPRESSION Stable mild degenerative changes for age. Mild neural foraminal stenosis bilaterally at L4-L5 and L5-S1 as above. THIS DOCUMENT HAS BEEN ELECTRONICALLY SIGNED BY RUTH CORTES MD FOR ANY QUESTIONS OR CONCERNS REGARDING THIS REPORT PLEASE CALL [facility] [phone] us Hattie Powell NP IMG MRI ORDERABLES Final Resu lt from Last 3 Months Insurance [facility] Advance Directives For more information, please contact: [phone] * Full Code (Latest Code Status on File) Date Activated Date Inactivated Comments 07/19/2022 6:35 07/19/2022 12:55 Question Answer Comments When the patient has NO PULSE: Full Code / CPR Who Made the Decision? Patient Care Teams Sand Car Worker Relationship Specialty Start Date End Date Yesenia Morales NP [address] [place] [phone] [facility] - General 06/14/21
--- OUTSIDE RECORDS SUMMARY | 2024-08-01 21:56 | XMS_ITS | Encounter Summary ---
Author Organization [facility] Address [address] [place] [address] Care Team Providers Care Wood Form Builder Name Role Phone CarlineYesenia trejo MOHAN Primary Care Provider [phone] Encounter Details Date Type Department Care Team (Late st Contact Info) Description 07/13/2023 Prep for Procedure [facility] [address], [address] [place] [address] Yoni Florentino PA-C [address] [facility] [address] [place] [address] Social History Tobacco Use Types Packs/Day Years [...] Assessment Author No 07/13/2023 15:29 EST Ashok Watters, LAVONNE * Because of a physical, mental, or [...] on filedocumented in this encounter Care Teams Wood Form Builder Relationship Specialty Start Date End Date Yesenia Morales NP [address] [place] [phone] PCP - General 06/14/21 documented as of this encounter
--- OUTSIDE RECORDS SUMMARY | 2024-08-01 21:56 | XMS_ITS | Encounter Summary ---
Author Organization [facility] Address [address] [place] [address] Care Team Providers Care Sulky Driver Name Role Phone CarlineYesenia trejo MOHAN Primary Care Provider [phone] Reason for Visit * Reason Comments Follow-up Encounter Details Date Type Department Care Team (Late st Contact Info) Description 08/11/2023 16:00 EST Office Visit [facility]opedics & Sport Medicine [address] [place], [place] [id number] Gilbert Timmons PA-C [address] [facility] [address] [place] [address] Infection of thumb (Primary Dx) Social History Tobacco Use Types Packs/Day Years [...] Author No 07/13/2023 15:29 EST Ashok Watters, RN * Because of a physical, mental, [...] 05/11/2021 16:02 EDT documented in this encounter Ordered Prescriptions Prescription Sig Dispense Quantity Refills Last Filled Start Date End Date cephalexin (KEFLEX) 500 mg capsule Take 1 Capsule by mouth 4 times daily. 40 Capsule 08/11/2023 4 documented in this encounter Progress Notes * Gilbert Timmons PA-C - 08/11/2023 1600 EST Diogo presents today for a follow up of his right thumb. He is s/p right thumb I&D extensor tendon repair, DOS 07/13/23 LV was on 07/28 with and per note: Continue working on gentle tendon glide but avoiding aggressive flexion allowing the partial tendon repair to heal for a few more weeks. He was given referral to occupational therapy to work on range of motion. Per TE on 08/10: He states that the thumb is very swollen, red and painful and he has been using itmore at work. He is taking ibuprofen and tylenol when he gets home from work, but is not taking anyduring the day. Here today for a re-check CHIEF COMPLAINT: Right thumb laceration I&D 07/13/2023 Chief Complaint Patient presents with Right Thumb - Follow-up SUBJECTIVE: Diogo here for follow-up evaluation of his right thumb laceration including partial extensor tendon repair almost 4 weeks ago. He had been doing well until 3 days ago when he had increasedpain and swelling. 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 He denies fevers or chills. No N/V. No chest pain or SOB. 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 (Patient not taking: Reported on 11/03/2022) amitriptyline (ELAVIL) 10 mg tablet 10 Tablets at bedtime. aspirin 81 mg EC tablet Take 1 Tablet by mouth daily. atorvastatin (LIPITOR) 40 mg tablet Take 1 Tablet by mouth every evening. blood glucose meter by not applicable route. (Patient not taking: Reported on 11/03/2022) BLOOD SUGAR DIAGNOSTIC, DISC MISC by not applicable route. celecoxib (CELEBREX) 200 mg capsule TAKE ONE CAPSULE BY MOUTH EVERY DAY FOR PAIN cyclobenzaprine (FLEXERIL) 10 mg tablet TAKE TWO TABLETS BY MOUTH AT BEDTIME NEEDED FOR PAIN. USE AT BEDTIME DUE TO SEDATION diphenhydrAMINE-acetaminophen 25-500 mg tablet Take 2 Tablets by mouth. Most nights doxycycline (VIBRA-TABS) 100 mg tablet Take 1 Tablet by mouth 2 times daily. empagliflozin (JARDIANCE) 10 mg tablet Take 1 Tablet by mouth daily. ergocalciferol, vitamin D2, (VITAMIN D ORAL) Take by mouth. weekly ibuprofen (MOTRIN) 200 mg tablet Take 1 Tablet by mouth at bedtime as needed for Pain. lancets by not applicable route. melatonin 10 mg capsule Take 10 mg by mouth at bedtime. metFORMIN (GLUCOPHAGE-XR) 500 mg ER tablet Take 2 Tablets by mouth 2 times daily. pregabalin (LYRICA) 200 mg capsule Generally BID (Patient not taking: Reported on 10/07/2022) terbinafine HCL (LAMISIL) 250 mg tablet daily. No facility-administered medications prior to visit. OBJECTIVE: Exam of the right thumb hows focal erythema and swelling over the IP joint; no active drainage but there does appear to be some pus visible beneath the dermis. Pain with any attempted ROM.Tender to palpation. No base of thumb tenderness. No lymphadenopathy to the the right UE ASSESSMENT: Right thumb laceration PLAN: The appearance is concerning for abscess formation. Dr morton was able to examine the digit as well. We will perform simple I&D and send a culture today. I ordered some keflex for him to take QID for 10 days. We will see him again in e days for f/u. documented in this encounter Plan of Treatment Not on file documented as of this encounter Procedures Procedure Name Priority Date/Time Associated Diagnosis Comments BACTERIAL CULTURE/SMEAR Routine 08/11/2023 15:52 EST Infection of thumb documented in this encounter Results * (ABNORMAL) BACTERIAL CULTURE/SMEAR (08/11/2023 15:52 EST) Organism ID Few Methicillin-Sens itive Staphylococcus aureus(A) VITEK SUSCEPTIBILITY 08/13/2023 8:26 EST [facility] Smear Many Neutrophils Present(A) 08/13/2023 8:26 EST [facility] Smear No bacteria seen(A) 08/13/2023 8:26 EST [facility] Comment:Eswab submitted Swab THUMB STRUCTURE / Unknown Swab / Unknown 08/11/2023 15:52 EST 08/11/2023 15:53 EST Narrative [facility] - 08/13/2023 8:26 EST Susceptible to nafcillin, cephalosporins and other beta lactam antibiotics (mecA gene product absent) Organism Antibiotic Method Susceptibility Methicillin-Sensitive Staphylococcus aureus Azithromycin VITEK SUSCEPTIBILITY Deduced Resistant Methicillin-Sensitive Staphylococcus aureus Cefazolin VITEK SUSCEPTIBILITY Deduced Susceptible Methicillin-Sensitive Staphylococcus aureus Clindamycin VITEK SUSCEPTIBILITY <=0.25 ug/mL: Resistant Methicillin-Sensitive Staphylococcus aureus Erythromycin VITEK SUSCEPTIBILITY 4 ug/mL: Resistant Methicillin-Sensitive Staphylococcus aureus Levofloxacin VITEK SUSCEPTIBILITY <=0.12 ug/mL: Susceptible Methicillin-Sensitive Staphylococcus aureus Oxacillin VITEK SUSCEPTIBILITY 0.5 ug/mL: Susceptible Methicillin-Sensitive Staphylococcus aureus Trimethoprim-Sulfame thoxazole VITEK SUSCEPTIBILITY <=10 ug/mL: Susceptible Methicillin-Sensitive Staphylococcus aureus Tetracycline VITEK SUSCEPTIBILITY <=1 ug/mL: Susceptible Comment:Tetracycline susceptible S.aureus is also susceptible to doxycycline and minocycline. Methicillin-Sensitive Staphylococcus aureus Vancomycin VITEK SUSCEPTIBILITY 1 ug/mL: Susceptible us Gilbert Timmons PA-C MICROBIOLOGY - GENERAL ORDERABLES Final Result [facility] [address] [place] [address] documented in this encounter Visit Diagnoses Diagnosis Infection of thumb- Primary documented in this encounter Care Teams Sulky Driver Relationship Specialty Start Date End Date Yesenia Morales NP [address] [place] [phone] PCP - General 06/14/21 documented as of this encounter
--- OUTSIDE RECORDS SUMMARY | 2024-08-01 21:56 | XMS_ITS | Encounter Summary ---
Author Organization [facility] Address [address] [place] [address] Care Team Providers Care Piper Helper Name Role Phone Yesenia Morales NP Primary Care Provider [phone] Reason for Referral * Referral (Routine/Next Available) - Authorization Not Required Specialty Diagnoses / Procedures Referred By [facility] [place] [facility] Referred To Contact Pain Medicine Diagnoses Spondylosis of lumbar region without myelopathy or radiculopathy Procedures RADIOFREQUENCY ABLATION Clark Oliva MD Phone: tel: fax: [facility] [address] [place] [address] Phone: tel: Referral ID Status Reason Start Date Expiration Date Visits Requested Visits Authorized [id number] Authorization Not Required 08/04/2023 1 1 Encounter Details Date Type Department Care Team (Latest Contact Info) Description 08/04/2023 Transcribe Orders [facility] [address] [place] [address] Clark Oliva MD [address] [place] [address] [address] [place] [address] Spondylosis of lumbar region without myelopathy or radiculopathy (Primary Dx) Social History Tobacco Use Types [...] documented in this encounter Plan of Treatment Scheduled Orders Name Type Priority Associated Diagnoses Orde r Schedule RADIOFREQUENCY ABLATION Procedures Routine Spondylosis of lumbar region without myelopathy or radiculopathy Expected: 08/04/2023 (Approximate), Expires: 08/04/2024 documented as of this encounter Visit Diagnoses Diagnosis Spondylosis of lumbar region without myelopathy or radiculopathy- Primary Lumbosacral spondylosis without myelopathy documented in this encounter Care Teams Piper Helper Relationship Specialty Start Date End Date Yesenia Morales NP [address] [place] [phone] PCP - General 06/14/21 documented as of this encounter
--- OUTSIDE RECORDS SUMMARY | 2024-08-01 21:56 | XMS_ITS | Encounter Summary ---
Author Organization [facility] Address [address] [place] [address] Care Team Providers Care Associate Professor Of Medicine Name Role Phone IlanYesneia acuña MOHAN Primary Care Provider [phone] Reason for Visit * Reason Onset Date Comments Post-op Problem 08/10/2023 Encounter Details Date Type Department Care Team (Late st Contact Info) Description 08/10/2023 Telephone [facility] [place] Orthopedics & Sport Medicine [address], [address] [place] [address] Mj Hernandez MD [address] [facility] [address] [place] [address] Post-op Problem Social History Tobacco Use Types Packs/Day Years [...] 05/11/2021 16:02 EDT documented in this encounter Miscellaneous Notes * Telephone Encounter - Verna Chawla RN - 08/10/2023 1557 EST Called and spoke with Diogo - he denies fever, sweats or chills and the incision is still well healed with no open areas / drainage. He states that the thumb is very swollen, red and painful and he has been using it more at work. He is taking ibuprofen and tylenol when he gets home from work, but isnot taking any during the day. Likely increased inflammation due to increased use at work, but an appt made for tomorrow for a re-check of the thumb. He will take ibuprofen and tylenol during the day tomorrow to help manage symptoms. * Telephone Encounter - Nery Hall MA - 08/10/2023 1539 EST Patient is S/P right thumb I&D and extensor tendon repair 07/13/23 DUSTIN Anderson calling in today stating that patient has had a couple of days of increased pain and swelling.Wondering what they should do. Has no current F/U documented in this encounter Plan of Treatment Not on file documented as of this encounter Visit Diagnoses Not on filedocumented in this encounter Care Teams Associate Professor Of Medicine Relationship Specialty Start Date End Date Yesenia Morales NP [address] [place] [phone] PCP - General 06/14/21 documented as of this encounter
--- OUTSIDE RECORDS SUMMARY | 2024-08-01 21:56 | XMS_ITS | Encounter Summary ---
Author Organization [facility] Address [address] [place] [address] Care Team Providers Care Collar Stay Fuser Tender Name Role Phone CarlineYesenia trejo MOHAN Primary Care Provider [phone] Encounter Details Date Type Department Care Team (Latest Contact Info) Description 07/13/2023 Prep for Procedure [facility] Orthopedics & Sport Medicine [address] [place] [address] Yoni Florentino PA-C [address] [facility] [address] [place] [address] Laceration of right thumb with infection, initial encounter (Primary Dx) Social History Tobacco Use Types [...] as of this encounter Visit Diagnoses Diagnosis Laceration of right thumb with infection, initial encounter- Primary documented in this encounter Orders Case Request Count Last Ordered Date First Orde red Date CASE REQUEST OPERATING ROOM 1 07/13/2023 documented in this encounter Care Teams Collar Stay Fuser Tender Relationship Specialty Start Date End Date Yesenia Morales NP [address] [place] [phone] PCP - General 06/14/21 documented as of this encounter
--- OUTSIDE RECORDS SUMMARY | 2024-08-01 21:56 | XMS_ITS | Encounter Summary ---
Author Organization [facility] Address [address] [place] [address] Care Team Providers Care Barrel Coater Name Role Phone Yesenia Morales MOHAN Primary Care Provider [phone] Reason for Visit * Reason Comments Finger Injury The patient lacerate d his right thumb while skinning a rabbit on Monday. The patient cleaned his wound and bandaged it. Today the patient comes to the ED because the finger appears infected. Encounter Details Date Type Department Care Team (Late st Contact Info) Description 07/13/2023 18:20 EST - 07/13/2023 20:10 EST Surgery [facility] Operating Room [address] [place] [address] Mj Hernandez MD [address] [facility] [address] [place] [address] COMPLEX INCISION AND DRAINAGE, WOUND, UPPER EXTREMITY [49324 (CPT??)] Surgery Details Date/Time Status Location OR Service Patient Class Case Class Case Type Trauma Case? 07/13/2023 1820 Posted [facility] OR OR Orthopedics Emergency E - Less than 12 hours Panel 1 Procedure LRB Anes Op Region Wound Class Comments COMPLEX INCISION AND DRAINAGE, WOUND, UPPER EXTREMITY Right General Hand Class IV/ Dirty or Infected Panel 2 Procedure [facility] Anes Op Region Wound Class Comments REPAIR, TENDON, EXTENSOR, FINGER, DISTAL, WITHOUT USING GRAFT Right General Thumb Class IV/ Dirty or Infected Surgeon Surgeon Role Service Panel Mj Hernandez MD Primary Orthoped ics 1 Yoni Florentino PA-C Assisting Orthopedics 1 Mj Hernandez MD Primary Orthoped ics 2 documented in this encounter Social History Tobacco Use Types Packs/Day Years [...] on file documented as of this encounter Last Filed Vital Signs Vital Sign Reading Time Taken Comments Blood Pressure 209/109 07/13/20232009 EST Pulse 70 07/13/2023 1530 EST Temperature 36.3 ??C (97.3 ??F) 07/13/20231955 EST Respiratory Rate 12 07/13/20232009 EST Oxygen Saturation 100% 07/13/20232009 EST Inhaled Oxygen Concentration - - Weight 72.6 kg (160 lb) 07/13/2023 1530 EST Height - - Body Mass Index 25.06 05/25/2023 1345 EDT documented in this encounter Functional Status * Are you [...] 05/11/2021 16:02 EDT documented in this encounter Discharge Instructions * Discharge Instructions* Alejandra Nuno, LAVONNE - 07/13/2023 20:39 EST You last received medication like ibuprofen at 8:30 pm, you can take your next dose of ibuprofen at2:30 am. You last had tylenol at 8:45 pm you can take your next dose of tylenol at 2:45 am. documented in this encounter Medications at Time of Discharge acetaminophen (TYLENOL) 500 mg tablet Take 1,000 mg by mouth as needed for Pain. amitriptyline (ELAVIL) 10 mg tablet 10 Tablets at bedtime. 05/05/2021 aspirin 81 mg EC tablet Take 1 Tablet by mouth daily. atorvastatin (LIPITOR) 40 mg tablet Take 1 Tablet by mouth every evening. 03/31/2021 blood glucose meter by not applicable route. 01/21/2020 BLOOD SUGAR DIAGNOSTIC, DISC MISC by not applicable route. 01/21/2020 cyclobenzaprine (FLEXERIL) 10 mg tablet TAKE TWO TABLETS BY MOUTH AT BEDTIME NEEDED FOR PAIN. USE AT BEDTIME DUE TO SEDATION 07/19/2022 diphenhydrAMINE- acetaminophen 25-500 mg tablet Take 2 Tablets by mouth. Most nights 03/16/2021 doxycycline (VIBRA-TABS) 100 mg tablet Take 1 Tablet by mouth 2 times daily. 28 Tablet 07/13/2023 ibuprofen (MOTRIN) 200 mg tabletIndication s:pain Take 4 Tablets by mouth at bedtime as needed for Pain. lancets by not applicable route. 01/21/2020 melatonin 10 mg capsule Take 10 mg by mouth at bedtime. 02/25/2021 metFORMIN (GLUCOPHAGE-XR) 500 mg ER tablet Take 2 Tablets by mouth 2 times daily. 04/21/2021 terbinafine HCL (LAMISIL) 250 mg tablet daily. 04/13/2021 celecoxib (CELEBREX) 200 mg capsule TAKE ONE CAPSULE BY MOUTH EVERY DAY FOR PAIN 10/04/2022 4 empagliflozin (JARDIANCE) 10 mg tablet Take 1 Tablet by mouth daily. 4 ergocalciferol, vitamin D2, (VITAMIN D ORAL) Take by mouth. weekly 4 pregabalin (LYRICA) 200 mg capsule Generally BID 04/10/2021 4 documented as of this encounter Ordered Prescriptions Prescription Sig Dispense Quantity Refills Last Filled Start Date End Date doxycycline (VIBRA-TABS) 100 mg tablet Take 1 Tablet by mouth 2 times daily. 28 Tablet 07/13/2023 documented in this encounter Discharge Disposition Disposition Code Departure Means Destination Comment s Home or Self Care Car Home documented in this encounter H&P Notes * Yoni Floretnino PA-C - 07/13/2023 1722 EST Orthopaedic Surgery Consultation Note Binh Martinez 1970 [id number] Chief Complaint: Right thumb infection. Chief Complaint Patient presents with Finger Injury The patient lacerated his right thumb while skinning a rabbit on Monday. The patient cleaned his wound and bandaged it. Today the patient comes to the ED because the finger appears infected. History of Present Illness: Binh Martinez is a 52 y.o. male whom I am seeing in consultation at the request of emergency department. He presented for evaluation of his right thumb laceration that occurred at home while skinning the rabbit. Laceration to the extensor surface over the IP joint. He was seen by primary care and was started on doxycycline yesterday and has had 2 doses. Continues to have swelling redness and discharge and was advised to go to the emergency department. Wound cultures are pending preliminary positive for GPC. Significant past medical history [id number] diabetic recent A1c yesterday was 13.6%. Complains of pain and swelling over the IP joint of the thumb with limited range of motion. Sensations remain intact Last p.o. intake ate lunch at noon time and had a soda around 3:00 PM Review of Systems: As above, otherwise negative Note Past Medical History: Active Ambulatory Problems Diagnosis Date Noted Osteonecrosis of both hips ([facility]) 06/22/2021 Left hip pain 12/28/2021 Resolved Ambulatory Problems Diagnosis Date Noted No Resolved Ambulatory Problems Past Medical History: Diagnosis Date Back pain Past Surgical History: Past Surgical History: Procedure Laterality Date HIP ARTHROSCOPY Left 07/19/2022 KNEE SURGERY Left repair LIPOMA RESECTION 04/10/2021 back of skull NASAL SEPTUM SURGERY as teen ager Medications: No current facility-administered medications on file prior to encounter. Current Outpatient Medications on File Prior to Encounter Medication Sig Dispense Refill acetaminophen (TYLENOL) 500 mg tablet Take 1,000 mg by mouth as needed for Pain. (Patient not taking: No sig reported) amitriptyline (ELAVIL) 10 mg tablet 100 mg at bedtime. aspirin 81 mg EC tablet Take 81 mg by mouth daily. atorvastatin (LIPITOR) 40 mg tablet Take 40 mg by mouth every evening. blood glucose meter by not applicable route. (Patient not taking: No sig reported) BLOOD SUGAR DIAGNOSTIC, DISC MISC by not applicable route. celecoxib (CELEBREX) 200 mg capsule TAKE ONE CAPSULE BY MOUTH EVERY DAY FOR PAIN cyclobenzaprine (FLEXERIL) 10 mg tablet TAKE TWO TABLETS BY MOUTH AT BEDTIME NEEDED FOR PAIN. USE AT BEDTIME DUE TO SEDATION diphenhydrAMINE-acetaminophen 25-500 mg tablet Take 2 Tablets by mouth. Most nights empagliflozin (JARDIANCE) 10 mg tablet Take 10 mg by mouth daily. ergocalciferol, vitamin D2, (VITAMIN D ORAL) Take by mouth. weekly ibuprofen (MOTRIN) 200 mg tablet Take 200 mg by mouth at bedtime as needed for Pain. lancets by not applicable route. melatonin 10 mg capsule Take 10 mg by mouth at bedtime. metFORMIN (GLUCOPHAGE-XR) 500 mg ER tablet Take 1,000 mg by mouth 2 times daily. pregabalin (LYRICA) 200 mg capsule Generally BID (Patient not taking: No sig reported) terbinafine HCL (LAMISIL) 250 mg tablet daily. 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 He is able to flex the IP joint and has very limited extension. Better movement at the MP joint. Tenderness over the dorsal surface very minimal tenderness on the flexor surface. No tenderness or swelling along the flexor tendon or into the palm or thenar eminence. Sensations intact. Without lymphangitis or proximal lymphadenopathy GENERAL APPEARANCE: No acute distress, pleasant, cooperative. HEENT: EYES: Conjunctiva clear, no drainage. EARS: Normal pinnae. NOSE: Unremarkable. THROAT: Pharynx normal no exudate ORAL CAVITY: Edentulous uppers, many missing lower teeth remaining teeth considerable decay. No lesions, moist mucous membranes NECK: Supple, no lymphadenopathy CHEST: Normal shape and expansion HEART: Regular rate and rhythm without murmur LUNGS: Clear to auscultation, unlabored ABDOMEN: Soft, nontender/nondistended, bowel sounds present, without hepatosplenomegaly NEUROLOGIC: Alert and oriented, normal gait, no distress. Appropriate speech Imaging Studies: FINDINGS: Bones/joints: Mild degenerative changes. No acute fracture. No acute malalignment. Soft tissues: Normal. IMPRESSION No acute bony abnormality. Assessment and Plan: Binh Martinez is a very pleasant 52 y.o. male with right thumb infection. The nature of the condition was discussed with them along with options for the treatment of the condition. Will plan on proceeding with surgical intervention I&D. Dr. Hernandez was also in to see patient, informed consent was done. Will plan on overnight admission for IV antibiotics. ER will administer 2 g of Ancef prior to surgery. Yoni Florentino PA-C Orthopaedics and Sports Medicine [facility] [address] [place], [place] Cosigned by Mj Hernandez MD at 07/13/2023 17:46 EST Associated attestation - Mj Hernandez MD - 07/13/2023 2641 EST Preop attestation complete documented in this encounter OR Notes * OR Surgeon - Mj Hernandez MD - 07/13/2023 1937 EST COMPLEX INCISION AND DRAINAGE, WOUND, UPPER EXTREMITY (R) Operative Note Date: 07/13/2023 Location: [facility] OR Name: Binh Martinez, : 1970, Diagnosis Pre-Op Diagnosis Codes: * Laceration of right thumb with infection, initial encounter [S61.011A, L08.9] Post-op Diagnosis * Laceration of right thumb with infection, initial encounter [S61.011A, L08.9] Procedures * COMPLEX INCISION AND DRAINAGE, WOUND, UPPER EXTREMITY Repair extensor tendon single without graft right thumb Surgeons * Mj Hernandez MD - Primary * Yoni Florentino PA-C - Assisting who was present for the entire procedure and necessary for exposure Procedure Summary Anesthesia: General ASA: III Estimated Blood Loss: No Blood Loss Documented Total IV Fluids: Per anesthesia record mL LDAs: Peripheral IV 07/13/23 1604 Left Antecubital (Active) Non-Surgical Airway (Active) Wound 07/19/22 Incision Left;Lateral Hip (Active) Wound 07/13/23 Right Hand (Active) Staff: Leaf Size Picker: Charlene Kent RN OR TECH: Natalia Chawla Indications: Binh Martinez is an 52 y.o. male who is having surgery for Laceration of right thumb with infection, initial encounter [S61.011A, L08.9] Procedure Details: The patient was seen in the preoperative area. The risks, benefits, complications, treatment options, non-operative alternatives, expected recovery and outcomes were discussed with the patient. The possibilities of reaction to medication, pulmonary aspiration, injury to surrounding structures, bleeding, recurrent infection, the need for additional procedures, failure to diagnose a condition, and creating a complication requiring transfusion or operation were discussed with the patient. The patient concurred with the proposed plan, giving informed consent. The site of surgery was properly noted/marked if necessary per policy. The patient has been actively warmed in preoperative area. Preoperative antibiotics have been ordered and given within 2 hours of incision. Venous thrombosis prophylaxis are not indicated. Findings: The patient had pus draining from the IP joint and 70% laceration with retraction of the extensor tendon over the right thumb IP joint. This was however thoroughly washed out specimen was sent for culture it was adequately debrided with synovectomy and removal of some bone spurs and inflamed tissue with direct tendon repair. Indication 52-year-old male who presents with 4 to 5-day history of redness swelling and pain over the dorsum of the right thumb after accidentally cutting deeply over the DIP joint with a knife thathe was using to skin his rabbits. He is diabetic he has elevated white count and CRP desires surgery for increasing pain and stiffness. Procedure: Patient was given a general anesthetic prepped and draped in the supine position routineconsent timeout identification and preoperative prep was performed a turnicot was used to exsanguinate the digit with a gentle dental pick the laceration site was opened and purulence was obtained this was cultured as well as performing a synovectomy 70% of the radial portion of the extensor tendon, EPL, was torn and retracted with open exposure and synovial proliferation in the IP joint. A wide debridement with synovectomy removal of osteophytes and involved tissue was performed throughout theDIP joint through the open tendon defect. A liter saline was washed with force through the area multiple times cleaning the wound thoroughly. With hyperextension of the thumb joint after the debridement the extensor tendon could be brought back together and was repaired with a running locking 5-0 Maxon absorbable suture. This held the thumb in an appropriate position without any dehiscence. The laceration which had been extended proximally on the radial side and distally on the ulnar side was brought together with interrupted 5-0 nylon sutures. Gauze dressing and then to Tegaderms were applied to maintain the thumb in hyperextension. Complications: None; patient tolerated the procedure well. Disposition: PACU - hemodynamically stable. Condition: stable Specimens: Right thumb tissue from the IP joint including synovium and purulent drainage was cultured Implants: None Mj Hernandez MD documented in this encounter ED Notes * Cristal Meredith RN - 07/13/2023 3347 EST Pt leaving to go to OR with Charlene lyon this time. * Deandra Rivas - 07/13/2023 1733 EST 12 Lead EKG Performed by DEANDRA RIVAS and shown to Jesus * Nicky Pope PA-C - 07/13/2023 1526 EST Images from the original note were not included. Emergency Department Visit Medical Decision Making 52 yo male w hx DM and infection of a cut to his right thumb from 4 days ago while skinning rabbits. tularemia unlikely with healthy rabbits and gpc's on culture so far. he is not having systemic sx but locally has purulent drainage and concern for joint and deeper tendon infection. taken to OR with orthopedics, given iv ancef in ed. An EKG was obtained and independently interpreted.Laboratory data was reviewed. Medical Decision Making Problems Addressed: Finger infection: complicated acute illness or injury Amount and/or Complexity of Data Reviewed Labs: ordered. Radiology: ordered. Risk Prescription drug management. Decision regarding hospitalization. Final diagnoses: Finger infection Disposition: Admitted Chief complaint: finger infection HPI Binh Martinez is a 52 y.o. male with hx DM, who presents to the ED for evaluation of a wound to his right thumb, incurred 4 days ago while he was slaughtering rabbits, knife got him. started to seem infected yesterday, started on doxy and has had two doses so far. having pain and drainage. no fevers or chills. blood glucose elevated, as is a1C. referred here from pcp for futher evaluation. rabbits were healthy caged rabbits, with no signs of illness and normal appearing livers, which apparently usually have signs of tularemia if present and rabbits are usually notably ill, which these weren't. culture sent to [facility] with GPC's so far. History was provided by: the patient Records reviewed include:pcp office note from today, [facility] culture results. Patient's pertinent PMH, FH, SH were reviewed and edited as necessary. Nursing notes reviewed. A medical screening exam was performed. Physical Exam BP (!) 139/93 Pulse 70 Temp 36.5 ??C (97.7 ??F) (Oral) Resp 14 Wt 72.6 kg (160 lb) SpO2 98% BMI 25.06 kg/m?? Physical Exam Constitutional: Well appearing in no acute distress HEENT: Normocephalic, atraumatic, pupils equal and reactive to light Neck: Full ROM Heart: Normal rate. Warm and well perfused. Lungs: No respiratory distress. Skin: No overt rashes on exposed skin Extremities: Moving spontaneously, warm and well perfused. right thumb has purulent drainage over the ip joint at dorsal aspect iwht associated erytyhema and swelling. he does not have fusiform swelling, he does tolerate passive rom, he has difficulty fully extending. some tenderness on palmar aspect over proximal phalanx, not over palm, no streaking Neuro: Awake, alert, oriented. Speech is fluent. Psych: Normal affect, appropriate speech, appropriate eye contact. Procedures Procedures documented in this encounter Plan of Treatment Scheduled Referrals Name Type Priority Associated Diagnoses Order Schedule PROVIDER FOLLOW-UP INSTRUCTIONS Outpatient Referral Routine Ordered: 07/13/2023 documented as of this encounter Procedures Procedure Name Priority Date/Time Associated Diagnosis Comments ECG REPORT - SCANNED 07/14/2023 10:44 EST ECG REPORT - SCANNED 07/14/2023 8:23 EST POCT GLUCOSE, INTERFACED Routine 07/13/2023 19:58 EST [facility] [employer] CULTURE SMEAR Today 07/13/2023 19:08 EST AFB CULTURE/SMEAR, OTHER Today 07/13/2023 19:08 EST ANAEROBE CULTURE/SMEAR(INC. AEROBES), OTHER Today 07/13/2023 19:08 EST REPAIR, TENDON, EXTENSOR, FINGER, DISTAL, WITHOUT USING GRAFT 07/13/2023 18:23 EST Laceration of right thumb with infection, initial encounter COMPLEX INCISION AND DRAINAGE, WOUND, UPPER EXTREMITY 07/13/2023 18:23 EST Laceration of right thumb with infection, initial encounter EKG 12-LEAD STAT 07/13/2023 17:29 EST XR FINGER RIGHT 2 OR MORE VIEWS STAT 07/13/2023 16:11 EST COMPLETE BLOOD COUNT AND DIFFERENTIAL STAT 07/13/2023 16:04 EST C REACTIVE PROTEIN STAT 07/13/2023 16 :04 EST COMPREHENSIVE METABOLIC PANEL (CMP) STAT 07/13/2023 16:04 EST documented in this encounter Results * ECG REPORT - SCANNED (07/14/2023 10:44 EST) 07/14/2023 10:4 4 EST us Scan 2 Education Officer PROCEDURE/MINOR SURGICAL OR DERABLES Final Result * ECG REPORT - SCANNED (07/14/2023 8:23 EST) 07/14/2023 8:23 EST us Scan 2 Education Officer PROCEDURE/MINOR SURGICAL OR DERABLES Final Result * (ABNORMAL) POCT GLUCOSE, INTERFACED (07/13/2023 19:58 EST) Glucose, POC 157(H) 70 - 100 mg/dL 07/13/2023 20:00 EST [facility] HN LAB POC COMMENT (GLUCOSE) Test Performed in SDS 07/13/2023 20:00 EST [facility] Blood CAPILLARY BLOOD / Unknown 07/13/2023 19:58 EST 07/13/2023 19:59 EST us Provider Unknown MD POINT OF CARE TEST ORDERABLE S Final Result [facility] [address] [place] [address] * [facility] [employer] CULTURE SMEAR (07/13/2023 19:08 EST) AFB Culture see scanned results 09/01/2023 12:08 EST [facility] Tissue THUMB STRUCTURE / Unknown 07/13/2023 19:08 EST 07/13/2023 20:51 EST Mj Hernandez MD MICROBIOLOGY - GE NERAL ORDERABLES Final Result Performing Organization Address [facility]/ZIP Co de Phone Number [facility] [address] [place] [address] * AFB CULTURE/SMEAR, OTHER (07/13/2023 19:08 EST) Organism ID Refer to AFB culture/Smear ([facility]) for results 09/01/2023 12:08 [facility] AFB Smear Test not performed 09/01/2023 12:08 [facility] Tissue THUMB STRUCTURE / Unknown 07/13/2023 19:08 EST 07/13/2023 20:51 EST Comment:Pre-op diagnosis: Laceration of right thumb with infection, initial encounter [S61.011A, L08.9] Mj Hernandez MD MICROBIOLOGY - NERAL ORDERABLES Final Result Performing Organization Address [facility] de Phone Number [facility] [address] [place] [address] * (ABNORMAL) ANAEROBE CULTURE/SMEAR(INC. AEROBES), OTHER (07/13/2023 19:08 EST) Organism ID No Anaerobes Isolated VITEK SUSCEPTIBILITY 3 11:58 [facility] Organism ID Moderate Staphylococcus species(A) VITEK SUSCEPTIBILITY 3 11:58 [facility] Comment: [place] morphology consistent with other cultures from the same site/source received within the last 3 days. Refer to other culture for identification and susceptibility testing. See [id number] Smear Few Neutrophils Present(A) 3 11:58 [facility] Smear No bacteria seen(A) 3 11:58 [facility] Comment:Tissue processed- Ri ght thumb IP joint Tissue THUMB STRUCTURE / Unknown 07/13/2023 19:08 EST 07/13/2023 20:51 EST Comment:Pre-op diagnosis: Laceration of right thumb with infection, initial encounter [S61.011A, L08.9] us Mj Hernandez MD MICROBIOLOGY - NERAL ORDERABLES Final Result [facility] [address] [place] [id number] * EKG 12-LEAD (07/13/2023 17:29 EST) 07/13/2023 17:2 9 EST Narrative [facility] - 07/14/2023 8:18 EST ? [facility] ? Test Date: ?2023-07-13 Pat Name: ? BINH MARTINEZ ? Department: ? Room: ? BHALL01 Gender: ? Male ? Train Planner: ?? CH : ?1970 ? Requested By: JESUS Ramos Order Number: [id number] ? Salvador VELASQUEZ: ?? MARY IYER MD ? Measurements Intervals ?Carson ? Rate: ? 75 ? P: ?63 [place]: ? 148 ?QRS: ?97 QRSD: ? 108 ?T: ?60 QT: ? 384 ? QTc: ?428 ? Interpretive Statements Normal sinus rhythm Rightward axis No previous ECG available for comparison I reviewed the tracing and have either agreed or edited the findings in this report. Electronically Signed On 07-14-2023 08:18:32 EST by MARY IYER MD. Procedure Note Mary Iyer MD - 07/14/2023 [facility] Test Date: 2023-07-13 Pat Name: BINH MARTINEZ Department: Room: [place] [address] Gender: Male Train Planner: : 1970 Requested By: JESUS Ramos Order Number: [id number] Reading MD: MARY IYER MD Measurements Intervals Carson Rate: 75 P: 63 [place]: 148 QRS: 97 QRSD: 108 T: 60 QT: 384 QTc: 428 Interpretive Statements Normal sinus rhythm Rightward axis No previous ECG available for comparison I reviewed the tracing and have either agreed or edited the findings inthis report. Electronically Signed On 07-14-2023 08:18:32 EST by MARY HARTMAN. us Nicky Pope PA-C CARDIAC ECG ORDERABLES Final Result [facility] * XR FINGER RIGHT 2 OR MORE VIEWS (07/13/2023 16:11 EST) Anatomical Region Laterality Modality Upper Extremities Right Computed Radio graphy 07/13/2023 16:3 2 EST Impressions 07/13/2023 17:20 EST No acute bony abnormality. THIS DOCUMENT HAS BEEN ELECTRONICALLY SIGNED BY DANIA CASTILLO MD FOR ANY QUESTIONS OR CONCERNS REGARDING THIS REPORT PLEASE CALL [facility] AT [phone] Narrative 07/13/2023 17:20 EST PROCEDURE INFORMATION: Exam: XR Right Finger(s) Exam date and time: 07/13/2023 4:32 PM Age: 52 years old Clinical indication: Pain; Finger(s); Right; Additional info: Finger pain TECHNIQUE: Imaging protocol: Radiologic exam of the right fingers. Views: Minimum 2 views. COMPARISON: NM BONE SPECT WITH WHOLE BODY 05/24/2021 12:01 PM FINDINGS: Bones/joints: Mild degenerative changes. No acute fracture. No acute malalignment. Soft tissues: Normal. Procedure Note aDnia Castillo MD - 07/13/2023 PROCEDURE INFORMATION: Exam: XR Right Finger(s) Exam date and time: 07/13/2023 4:32 PM Age: 52 years old Clinical indication: Pain; Finger(s); Right; Additional info: Finger pain TECHNIQUE: Imaging protocol: Radiologic exam of the right fingers. Views: Minimum 2 views. COMPARISON: NM BONE SPECT WITH WHOLE BODY 05/24/2021 12:01 PM FINDINGS: Bones/joints: Mild degenerative changes. No acute fracture. No acute malalignment. Soft tissues: Normal. IMPRESSION No acute bony abnormality. THIS DOCUMENT HAS BEEN ELECTRONICALLY SIGNED BY DANIA CASTILLO MD FOR ANY QUESTIONS OR CONCERNS REGARDING THIS REPORT PLEASE CALL AD [phone] Nicky Pope PA-C IMG DIAGNOSTIC IMAGING ORDERABLES Final Result * (ABNORMAL) C REACTIVE PROTEIN (07/13/2023 16:04 EST) Pathologist [facility] C-Reactive Protein 44.0(H) <10.0 mg/L 07/13/2023 16:38 [facility] Blood VENOUS BLOOD / Unknown Venipuncture / Unknown 07/13/2023 16:04 EST 07/13/2023 16:08 EST Nicky Pope PA-C CHEMISTRY & BLOOD GAS O RDERABLES Final Result Performing Organization Address City/State/[facility] Co de Phone Number [facility] [address] [place] [address] * (ABNORMAL) COMPREHENSIVE METABOLIC PANEL (CMP) (07/13/2023 16:04 EST) Pathologist [facility] Sodium 135(L) 136 - 145 mmol/L 07/13/2023 16:38 [facility] Potassium 4.3 3.5 - 5.0 mmol/L 07/13/2023 16:38 [facility] Chloride 102 96 - 110 mmol/L 07/13/2023 16:38 [facility] CO2 Total 25 22 - 32 mmol/L 07/13/2023 16:38 [facility] Glucose 228(H) 70 - 99 mg/dl 07/13/2023 16:38 [facility] BUN 27(H) 10 - 26 mg/dL 07/13/2023 16:38 [facility] Creatinine 0.76 0.66 - 1.25 mg/dL 07/13/2023 16:38 [facility] eGFR 109 >60 mL/min/1.7 3m2 07/13/2023 16:38 [facility] Total Protein 6.4 6.3 - 8.2 g/dL 07/13/2023 16:38 [facility] Albumin 3.8 3.4 - 4.9 g/dL 07/13/2023 16:38 [facility] Alkaline Phosphatase 101 38 - 126 U/L 07/13/2023 16:38 [facility] AST 22 15 - 46 U/L 07/13/2023 16:38 [facility] ALT 23 <50 U/L 07/13/2023 16:38 [facility] Bilirubin, Total <0.5 <1.4 mg/dL 07/13/20 16:38 [facility] Calcium 9.2 8.5 - 10.5 mg/dL 07/13/2023 16:38 [facility] Albumin/Globulin Ratio 1.5 1.0 - 2.5 g/dL 07/13/2023 16:38 [facility] Anion Gap 8 5 - 14 mmol/L 07/13/2023 16:38 [facility] Blood VENOUS BLOOD / Unknown Venipuncture / Unknown 07/13/2023 16:04 EST 07/13/2023 16:08 EST us Nicky Pope PA-C CHEMISTRY & BLOOD GAS O RDERABLES Final Result Performing Organization Address City/State/[facility] Co de Phone Number [facility] [address] [place] [address] * (ABNORMAL) COMPLETE BLOOD COUNT AND DIFFERENTIAL (07/13/2023 16:04 EST) WBC 12.74(H) 4.00 - 10.40 K/cmm 07/13/2023 16:19 [facility] RBC 4.64 4.36 - 5.78 M/cmm 07/13/2023 16:19 [facility] Hemoglobin 14.1 13.8 - 17.3 g/dL 07/13/2023 16:19 [facility] HCT 42.1 39.5 - 50.2 % 07/13/2023 16:19 [facility] MCV 91 81 - 95 fL 07/13/2023 16:19 [facility] MCH 30.4 27.6 - 33.0 pg 07/13/2023 16:19 [facility] MCHC 33.5 32.8 - 36.4 g/dL 07/13/2023 16:19 [facility] RDW-CV 13.5 <14.2 % 07/13/2023 16:19 [facility] RDW-SD 45.1 <46.0 fl 07/13/2023 16:19 [facility] PLT 314 141 - 377 K/cmm 07/13/2023 16:19 [facility] MPV 9.4(L) 9.5 - 12.7 fL 07/13/2023 16:19 [facility] % Neutrophils 70.7 % 07/13/2023 16:19 [facility] % Lymphocytes 20.5 % 07/13/2023 16:19 [facility] % Monocytes 5.0 % 07/13/2023 16:19 [facility] % Eosinophils 2.5 % 07/13/2023 16:19 [facility] % Basophils 0.8 % 07/13/2023 16:19 [facility] % Immature Grans 0.5 % 07/13/20 16:19 [facility] Absolute Neutrophils 9.00(H) 2.20 - 8.85 K/cmm 07/13/2023 16:19 [facility] Absolute Lymphocytes 2.61 1.09 - 3.30 K/cmm 07/13/2023 16:19 [facility] Absolute Monocytes 0.64 0.10 - 0.80 K/cmm 07/13/2023 16:19 [facility] Absolute Eosinophils 0.32 0.03 - 0.61 K/cmm 07/13/2023 16:19 [facility] ABS Basophils 0.10 0.01 - 0.11 K/cmm 07/13/2023 16:19 [facility] Absolute Immature Grans 0.07(H) 0.00 - 0.06 K/cmm 07/13/2023 16:19 [facility] Type of Differential: Auto 07/13/2023 16:19 EST [facility] Blood VENOUS BLOOD / Unknown Venipuncture / Unknown 07/13/2023 16:04 EST 07/13/2023 16:08 EST Nicky Pope PA-C PACKAGES & DNA PROBE OR DERABLES Final Result [facility] [address] [place] [address] documented in this encounter Visit Diagnoses Diagnosis Finger infection- Primary Unspecified local infection of skin and subcutaneous tissue Finger infection Unspecified local infection of skin and subcutaneous tissue Laceration of right thumb with infection Laceration of right thumb with infection, initial encounter documented in this encounter Admitting Diagnoses Diagnosis Finger infection Unspecified local infection of skin and subcutaneous tissue Laceration of right thumb with infection documented in this encounter Administered Medications Inactive Administered Medications - up to 3 most recent administrations Medication Order MAR Action Action Date Dose Rate Site acetaminophen (OFIRMEV) IV solution 1,000 mg 1,000 mg, intravenous, NOW X1, 1 dose, On Faith 07/13/23 at 2045, Routine, Recovery (only) Given 07/13/2023 20:46 EST 1,000 mg ceFAZolin in dextrose 5 % (ANCEF) IVPB DUPLEX 2,000 mg 2,000 mg, intravenous, Administer over 30 Minutes, NOW X1, 1 dose, On Faith 07/13/23 at 1715, Type of Therapy: Definitive, Based on Cultures, Suspected Indication (Select all that apply): Bursitis, Routine Given 07/13/2023 17:25 EST 2,000 mg cefTRIAXone (ROCEPHIN) 1,000 mg in sodium chloride (NS MBP) 50 mL IVPB 1,000 mg, intravenous, Administer over 30 Minutes, EVERY 24 HOURS, 1 dose, First dose on Faith 07/13/23 at 2015, Type of Therapy: Empiric, Suspected Indication (Select all that apply): Septic arthritis, Routine, Recovery (only) Given 07/13/2023 20:09 EST 1,000 mg diphenhydrAMINE (BENADRYL) injection 6.25 mg 6.25 mg, intravenous, ONCE PRN, 1 dose, Starting on Faith 07/13/23 at 1959, Until Faith 07/13/23 at 2347, Nausea/Vomiting, Routine, Recovery (only) glycopyrrolate (ROBINUL) injection 0.2 mg 0.2 mg, intravenous, EVERY 3 MINUTES PRN, Starting on Faith 07/13/23 at 1959, Until Faith 07/13/23 at 2347, BRADYCARDIA, Routine, Recovery (only) HYDROmorphone (PF) (DILAUDID) 0.5 mg/0.5 mL syringe 0.5 mg 0.5 mg, intravenous, EVERY 5 MIN PRN, Starting on Faith 07/13/23 at 1959, Until Faith 07/13/23 at 2347, Pain, Moderate-Severe Pain (Scale 4-10), Routine, Recovery (only) Given 07/13/2023 21:05 EST 0.5 mg Given 07/13/2023 20:22 EST 0.5 mg Given 07/13/2023 20:08 EST 0.5 mg ketOROLAC (TORADOL) injection 30 mg 30 mg, intravenous, NOW X1, 1 dose, On Faith 07/13/23 at 2045, Routine, Recovery (only) Given 07/13/2023 20:35 EST 30 mg labetalol (TRANDATE) injection 5 mg 5 mg, intravenous, EVERY 3 MINUTES PRN, Starting on Faith 07/13/23 at 195, Until Faith 07/13/23 at 2347, High Blood Pressure, SBP greater than 180 mmHg, Routine, Recovery (only) lactated ringers (LR) infusion at 100 mL/hr, 1,000 mL, intravenous, PACU CONTINUOUS, Starting on Faith 07/13/23 at 2015, Until Faith 07/13/23 at 2347, Routine, Recovery (only) New Bag 07/13/2023 20:07 EST 1,000 mL 100 mL/h r lactated ringers BOLUS 500 mL 500 mL, intravenous, ONCE PRN, 1 dose, Starting on Faith 07/13/23 at 1958, Until Faith 07/13/23 at 2347, Other, SBP below 100 or MAP below 60, Routine, Recovery (only) metoclopramide (REGLAN) injection 10 mg 10 mg, intravenous, ONCE PRN, 1 dose, Starting on Faith 07/13/23 at 195, Until Faith 07/13/23 at 2347, Nausea/Vomiting, Routine, Recovery (only) midazolam (PF) (VERSED) injection 1 mg 1 mg, intravenous, EVERY 5 MIN PRN, 2 doses, Starting on Faith 07/13/23 at 1959, Until Faith 07/13/23 at 2347, Anxiety, Routine, Recovery (only) oxyCODONE (ROXICODONE) immediate release tablet 5 mg 5 mg, oral, EVERY 30 MINUTES PRN, 2 doses, Starting on Faith 07/13/23 at 1959, Until Faith 07/13/23 at 205, Pain, Moderate Pain 4-6, Routine, Recovery (only) Given 07/13/2023 20:52 EST 5 mg Given 07/13/2023 20:22 EST 5 mg phenylephrine HCl in 0.9% NaCl injection 80 mcg 80 mcg, intravenous, EVERY 3 MINUTES PRN, Starting on Faith 07/13/23 at 1959, Until Faith 07/13/23 at 2347, Hypotension, Routine, Recovery (only) documented in this encounter Active and Recently Administered Medications Times are shown in EST. Scheduled Medication Order 07/11/2023 07/12/2023 07/13/2023 acetaminophen (OFIRMEV) IV solution 1,000 mg (COMPLETED) 1,000 mg, intravenous, NOW X1, 1 dose, On Faith 07/13/23 at 204, Routine, Recovery (only) 2045 (Given - Provid er: Alejandra Nuno RN) ceFAZolin in dextrose 5 % (ANCEF) IVPB DUPLEX 2,000 mg (COMPLETED) 2,000 mg, intravenous, Administer over 30 Minutes, NOW X1, 1 dose, On Faith 07/13/23 at 1715, Type of Therapy: Definitive, Based on Cultures, Suspected Indication (Select all that apply): Bursitis, Routine 172 (Given - Provid er: Cristal Meredith RN)175 (Completed - Provider: Cristal Meredith RN) cefTRIAXone (ROCEPHIN) 1,000 mg in sodium chloride (NS MBP) 50 mL IVPB (COMPLETED) 1,000 mg, intravenous, Administer over 30 Minutes, EVERY 24 HOURS, 1 dose, First dose on Faith 07/13/23 at 2015, Type of Therapy: Empiric, Suspected Indication (Select all that apply): Septic arthritis, Routine, Recovery (only) 2008 (Given - Provid er: Alejandra Nuno RN) ketOROLAC (TORADOL) injection 30 mg (COMPLETED) 30 mg, intravenous, NOW X1, 1 dose, On Faith 07/13/23 at 2044, Routine, Recovery (only) 2034 (Given - Provid er: Alejandra Nuno RN) Continuous Medication Order 07/11/2023 07/12/2023 07/13/2023 lactated ringers (LR) infusion at 100 mL/hr, 1,000 mL, intravenous, PACU CONTINUOUS, Starting on Faith 07/13/23 at 2015, Until Faith 07/13/23 at 2347, Routine, Recovery (only) 2006 (New Bag - Prov ider: Alejandra Nuno RN) PRN Medication Order 07/11/2023 07/12/2023 07/13/2023 diphenhydrAMINE (BENADRYL) injection 6.25 mg 6.25 mg, intravenous, ONCE PRN, 1 dose, Starting on Faith 07/13/23 at 1959, Until Faith 07/13/23 at 2347, Nausea/Vomiting, Routine, Recovery (only) glycopyrrolate (ROBINUL) injection 0.2 mg 0.2 mg, intravenous, EVERY 3 MINUTES PRN, Starting on Faith 07/13/23 at 1959, Until Faith 07/13/23 at 2347, BRADYCARDIA, Routine, Recovery (only) HYDROmorphone (PF) (DILAUDID) 0.5 mg/0.5 mL syringe 0.5 mg 0.5 mg, intravenous, EVERY 5 MIN PRN, Starting on Faith 07/13/23 at 1959, Until Faith 07/13/23 at 2347, Pain, Moderate-Severe Pain (Scale 4-10), Routine, Recovery (only) 2007 (Given - Provid er: Alejandra Nuno RN)2021 (Given - Provider: Alejandra Nuno RN)2104 (Given - Provider: Alejandra Nuno RN) labetalol (TRANDATE) injection 5 mg 5 mg, intravenous, EVERY 3 MINUTES PRN, Starting on Faith 07/13/23 at 1959, Until Faith 07/13/23 at 2347, High Blood Pressure, SBP greater than 180 mmHg, Routine, Recovery (only) lactated ringers BOLUS 500 mL 500 mL, intravenous, ONCE PRN, 1 dose, Starting on Faith 07/13/23 at 1959, Until Faith 07/13/23 at 2347, Other, SBP below 100 or MAP below 60, Routine, Recovery (only) metoclopramide (REGLAN) injection 10 mg 10 mg, intravenous, ONCE PRN, 1 dose, Starting on Faith 07/13/23 at 1959, Until Faith 07/13/23 at 2347, Nausea/Vomiting, Routine, Recovery (only) midazolam (PF) (VERSED) injection 1 mg 1 mg, intravenous, EVERY 5 MIN PRN, 2 doses, Starting on Faith 07/13/23 at 1959, Until Faith 07/13/23 at 2347, Anxiety, Routine, Recovery (only) oxyCODONE (ROXICODONE) immediate release tablet 5 mg (COMPLETED) 5 mg, oral, EVERY 30 MINUTES PRN, 2 doses, Starting on Faith 07/13/23 at 1959, Until Faith 07/13/23 at 2051, Pain, Moderate Pain 4-6, Routine, Recovery (only) 2021 (Given - Provid er: Alejandra Nuno RN)2051 (Given - Provider: Alejandra Nuno RN) phenylephrine HCl in 0.9% NaCl injection 80 mcg 80 mcg, intravenous, EVERY 3 MINUTES PRN, Starting on Faith 07/13/23 at 1959, Until Faith 07/13/23 at 2347, Hypotension, Routine, Recovery (only) documented in this encounter Orders Medications Ordered That Ki ht Not Have Been Administered Count Last Ordered Date First Ordered Date diphenhydrAMINE (BENADRYL) i njection 6.25 mg 1 07/13/2023 glycopyrrolate (ROBINUL) injection 0.2 mg 1 07/13/2023 labetalol (TRANDATE) injection 5 mg 1 07/13 lactated ringers BOLUS 500 mL 1 07/13/2023 metoclopramide (REGLAN) injection 10 mg 1 1 09/13/2022 midazolam (PF) (VERSED) injection 1 mg 1 phenylephrine HCl in 0.9% Na Cl injection 80 mcg 1 07/13/2023 Diet Count Last Ordered Date First Orde red Date DISCHARGE DIET 1 07/13/2023 Nursing Count Last Ordered Date First Orde red Date ACTIVITY INSTRUCTIONS 1 07/13/2023 BATHING INSTRUCTIONS 1 07/13/2023 CALL PHYSICIAN SPECIALTY CONSULT 1 07/13/20 WOUND CARE INSTRUCTIONS 1 07/13/2023 Transfer Count Last Ordered Date First Orde red Date ED BED REQUEST 1 07/13/2023 Discharge Count Last Ordered Date First Orde red Date DISCHARGE PATIENT 1 07/13/2023 Legal Count Last Ordered Date First Orde red Date MISCELLANEOUS DISCHARGE INSTRUCTIONS 1 06/24 documented in this encounter Care Teams Barrel Coater Relationship Specialty Start Date End Date Yesenia Morales NP [address] [place] [phone] PCP - General 06/14/21 documented as of this encounter
--- OUTSIDE RECORDS SUMMARY | 2024-08-01 21:56 | XMS_ITS | Encounter Summary ---
Author Organization [facility] Address [address] [place] [address] Care Team Providers Care Mud Engineer Name Role Phone Carlinemaya Yesenia MOHAN Primary Care Provider [phone] Reason for Referral * Radiology Services (Routine/Next Available) - Authorization Not Required Specialty Diagnoses / Procedures Referred By Contac t Referred To Contact Diagnoses Spondylosis of lumbar region without myelopathy or radiculopathy Procedures FL C-ARM BLOCK/INJECTION IN CLINIC Clark Oliva MD [address] [place] [phone] Phone: tel: fax: [facility] Referral ID Status Reason Start Date Expiration Date Visits Requested Visits Authorized [id number] Authorization Not Required 11/03/2023 1 1 Reason for Visit * Radiology Services (Routine/Next Available) - Authorization Not Required Specialty Diagnoses / Procedures Referred By Contac t Referred To Contact Diagnoses Spondylosis of lumbar region without myelopathy or radiculopathy Procedures FL C-ARM BLOCK/INJECTION IN CLINIC Clark Oliva MD [address] [place] [phone] Phone: tel: fax: [facility] Referral ID Status Reason Start Date Expiration Date Visits Requested Visits Authorized [id number] Authorization Not Required 11/03/2023 1 1 Encounter Details Date Type Department Care Team (Latest Contact Info) Description 11/03/2023 13:45 EDT - 11/03/2023 23:59 EDT Hospital Encounter [facility] Xray [address] [place] [address] Spondylosis of lumbar region without myelopathy or radiculopathy Discharge Disposition: Home or Self Care Social History Tobacco Use Types Packs/Day Years [...] Assessment Author No 07/13/2023 15:29 EST Ashok Watetrs, LAVONNE * Because of a physical, mental, [...] 05/11/2021 16:02 EDT documented in this encounter Medications at Time [...] DISC MISC by not applicable route. 01/21/2020 canagliflozin (INVOKANA ORAL) Take 1 Tablet by mouth daily. cholecalciferol (VITAMIN D3) 1,250 mcg (50,000 unit) capsule Take 1 Capsule by mouth once a week. cyclobenzaprine (FLEXERIL) 10 mg tablet TAKE TWO TABLETS BY MOUTH AT BEDTIME NEEDED FOR PAIN. USE AT BEDTIME DUE TO SEDATION 07/19/2022 diphenhydrAMINE- acetaminophen 25-500 mg tablet Take 2 Tablets by mouth. Most nights 03/16/2021 doxycycline (VIBRA-TABS) 100 mg tablet Take 1 Tablet by mouth 2 times daily. 28 Tablet 07/13/2023 FREESTYLE KVNG 3 SENSOR device Use as directed. 08/23/2023 ibuprofen (MOTRIN) 200 mg tabletIndication s:pain Take 4 Tablets by mouth at bedtime as needed for Pain. lancets by not applicable route. 01/21/2020 LANTUS SOLOSTAR U-100 INSULIN 100 unit/mL (3 mL) injection pen Inject 14 Units into the skin once daily. 08/16/2023 melatonin 10 mg capsule Take 10 mg by mouth at bedtime. 02/25/2021 metFORMIN (GLUCOPHAGE-XR) 500 mg ER tablet Take 2 Tablets by mouth 2 times daily. 04/21/2021 terbinafine HCL (LAMISIL) 250 mg tablet daily. 04/13/2021 documented as of this encounter Discharge Disposition Disposition Code Departure Means Destination Home or Self Care documented in this encounter Plan of Treatment Not on file documented as of this encounter Procedures Procedure Name Priority Date/Time Associated Diagnosis Comments FL C-ARM BLOCK/INJECTION IN CLINIC Routine 11/03/2023 15:03 EDT Spondylosis of lumbar region without myelopathy or radiculopathy documented in this encounter Results * FL C-ARM BLOCK/INJECTION IN CLINIC (11/03/2023 15:03 EDT) Narrative 11/03/2023 15:04 EDT This is a non-reportable exam. Clark Oliva MD IMG FLUOROSCOPY ORDERABLES Yolis l Result documented in this encounter Visit Diagnoses Diagnosis Spondylosis of lumbar region without myelopathy or radiculopathy Lumbosacral spondylosis without myelopathy documented in this encounter Care Teams Mud Engineer Relationship Specialty Start Date End Date Yesenia Morales NP [address] [place] [phone] PCP - General 06/14/21 documented as of this encounter
--- OUTSIDE RECORDS SUMMARY | 2024-08-01 21:56 | XMS_ITS | Encounter Summary ---
Author Organization [facility] Address [address] [place] [address] Care Team Providers Care Business English Instructor Name Role Phone CarlineYesenia trejo MOHAN Primary Care Provider [phone] Encounter Details Date Type Department Care Team (Latest Contact Info) Description 11/03/2023 Travel Social History Tobacco Use Types Packs/Day [...] on filedocumented in this encounter Care Teams Business English Instructor Relationship Specialty Start Date End Date Yesenia Morales NP [address] [place] [phone] PCP - General 06/14/21 documented as of this encounter
--- OUTSIDE RECORDS SUMMARY | 2024-08-01 21:56 | XMS_ITS | Encounter Summary ---
Author Organization [facility] Address [address] [place] [address] Care Team Providers Care Hotel Maid Name Role Phone Carmen Yesenia MOHAN Primary Care Provider [phone] Encounter Details Date Type Department Care Team (Late st Contact Info) Description 07/13/2023 18:35 EST Anesthesia Event [facility] Operating Room [address] [place] [id number] Emelyn Yoon MD [address] [place] [phone] Anesthesia Record Procedure Summary Procedure Name Responsible Anesthesiologist Anesthesia Start Time Anesthesia Stop Time COMPLEX INCISION AND DRAINAGE, WOUND, UPPER EXTREMITY (Right: Hand) Emelyn Yoon MD 07/13/23183407/13/231957 Events Date Time Event Comment 07/13/20231834 An Start The patient was re-evaluated immediately before moderate or deep sedation use, before anesthesia induction, or before the anesthesia procedure. 1834 An Start Data 1856 An Induction The patient was reevaluated immediately before moderate or deep sedation use and before anesthesia induction. 1856 An Intubation 1856 Anesthesia Ready 1956 Handoff to RN I completed my handoff to the receiving nurse during which we: 1. Identified the patient 2. Identified the responsible provider 3. Reviewed the pertinent medical history 4. Discussed the surgical course 5. Reviewed intra-op anesthesia management and issues during anesthesia 6. Set expectations for post-procedure period 7. Allowed opportunity for questions and acknowledgement of understanding. 1957 An Stop 1957 an stop data Meds Name Total fentanyl citrate (PF) injection 100 mcg midazolam (versed) 1 mg/mL 2 mL vial 4 m g ondansetron (PF) (ZOFRAN) injection 4 mg propOFol (DIPRIVAN) injection 200 mg succinylcholine 20 mg/mL vial 120 mg lactated ringers (LR) infusion 1,100 mL * Agents Name Insp Sevoflurane Exp Sevoflurane O2 N2O Air * Blood No blood administrations on file. Lines, Drains, and Airways Type Details Placement Removal Wound 07/19/22; 0810; Incision; Left, Lateral; Hip; Arthroscopy ports x2; N 07/19/22 0810 by Syed Partida Non-Surgical Airway 07/13/23; 1912 (ridge brandon via procedure documentation) 07/13/231912 by Emelyn Yoon MD Wound 07/13/23; 1921; Righ t; Hand; dorsal right thumb laceration; surgical incision same location 07/13/231921 by Charlene Kent RN Peripheral IV 07/13/23; 1604; 20; Left; Antecubital; Enamel Drier/Technologist; 1; 07/13/23; 2140; Discharged; No complications, Catheter intact, Dressing applied 07/13/23 1604 by Mati Grant 07/13/232140 by Alejandra Nuno RN documented in this encounter Social History Tobacco [...] 05/11/2021 16:02 EDT documented in this encounter OR Notes * Anesthesia Postprocedure Evaluation - Emelyn Yoon MD - 07/13/20231957 EST Patient: Diogo Martinez Vital signs were reviewed with the recovery nurse. Complete vitals history is available in the [facility]. Vitals Value Taken Time BP 168/95 07/13/231955 Temp 36.3 ??C (97.3 ??F) 07/13/231955 Resp 12 07/13/231957 Pulse From Oximetry 80 BPM 07/13/231957 SpO2 98 % 07/13/231957 Heart Rate 80 BPM 07/13/231957 Vitals shown include unvalidated device data. Last Pain Score - Numeric Pain Level (Scale 1-10): 6 Type of Anesthesia - general Anesthesia Post Evaluation Post-procedure vitals reviewed and are stable. Level of consciousness: sedated Temperature status: normothermia and patient returned to pre-procedure baseline Respiratory status: airway patent, stable and nasal cannula Cardiovascular status: stable Hydration status: adequate Nausea/Vomiting: none Pain management: adequate Post-Op Assessment: patient tolerated procedure well with no complications Patient participation: able to participate Disposition: outpatient/home Anesthesia Complications: No apparent anesthesia complications * Anesthesia Procedure Notes - Emelyn Yoon MD - 07/13/2023 1912 EST Associated Order(s): Airway Airway Date/Time: 07/13/2023 18:57 Urgency: elective Airway not difficult General Information and Staff Patient location during procedure: OR Anesthesiologist: Emelyn Yoon MD Performed: anesthesiologist Performed by: Emelyn Yoon MD Authorized by: Emelyn Yoon MD Indications and Patient Condition Indications for airway management: anesthesia Sedation level: GA Preoxygenated: yes Patient position: sniffing Ventilation assessment: 0 - not attempted Final Airway Details Final airway type: endotracheal airway Successful airway: ETT Cuffed: yes Successful intubation technique: video laryngoscopy Acosta Facilitating devices/methods: intubating stylet Endotracheal tube insertion site: oral Blade: Karri Blade size: #3 ETT size (mm): 7.0 Cormack-Lehane Classification: grade IIa - partial view of glottis Placement verified by: chest auscultation and capnometry Measured from: lips ETT to lips (cm): 22 Number of attempts at approach: 1 Ventilation between attempts: none Number of other approaches attempted: 0 * Anesthesia Preprocedure Evaluation - Emelyn Yoon MD - 07/13/2023 5787 EST Anesthesia Preprocedure Evaluation 52 yo with DM. Patient Medical History, including Anesthesia History reviewed. Chart and Nursing Notes reviewed, including NPO status and Medication History. Additional ROS/History Findings: Past Anesthetics [x] No history of complications from anesthesia [] 07/19/2022 anesthesia records on file [x]No family history of allergic reactions to anesthesia Relevant Cardiac Studies []N/A Review of Systems Constitutional: Negative for chills, fever and malaise/fatigue. Respiratory: Negative for shortness of breath and wheezing. Cardiovascular: Negative for chest pain and palpitations. Gastrointestinal: Negative for heartburn. No current facility-administered medications for this encounter. Current Outpatient Medications Medication acetaminophen (TYLENOL) 500 mg tablet amitriptyline (ELAVIL) 10 mg tablet aspirin 81 mg EC tablet atorvastatin (LIPITOR) 40 mg tablet blood glucose meter BLOOD SUGAR DIAGNOSTIC, DISC MISC celecoxib (CELEBREX) 200 mg capsule cyclobenzaprine (FLEXERIL) 10 mg tablet diphenhydrAMINE-acetaminophen 25-500 mg tablet empagliflozin (JARDIANCE) 10 mg tablet ergocalciferol, vitamin D2, (VITAMIN D ORAL) ibuprofen (MOTRIN) 200 mg tablet lancets melatonin 10 mg capsule metFORMIN (GLUCOPHAGE-XR) 500 mg ER tablet pregabalin (LYRICA) 200 mg capsule terbinafine HCL (LAMISIL) 250 mg tablet Allergies Allergen Reactions Cortisone Insomnia Steroids Erythromycin Nausea And Vomiting Past Medical History: Diagnosis Date Back pain Relevant Problems No relevant active problems Past Surgical History: Procedure Laterality Date FINGER SURGERY 07/13/2023 thumb HIP ARTHROSCOPY Left 07/19/2022 KNEE SURGERY Left repair LIPOMA RESECTION 04/10/2021 back of skull NASAL SEPTUM SURGERY as teen ager SOCIAL HISTORY: Social History Tobacco Use Smoking Status Every Day Current packs/day: 0.75 Average packs/day: 0.8 packs/day for 35.3 years (26.5 ttl pk-yrs) Types: Cigarettes Start date: 03/14/1988 Smokeless Tobacco Never Tobacco Comments not there yet Social History Substance and Sexual Activity Drug Use Yes Types: Marijuana Comment: daily prior to bed Social History Substance and Sexual Activity Alcohol Use Not Currently Comment: 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 December 24 Lab Results Component Value Date GLUCOSEPOC 153 (H) 11/03/2022 Lab Results Component Value Date WBC 12.74 (H) 07/13/2023 HGB 14.1 07/13/2023 HCT 42.1 07/13/2023 MCV 91 07/13/2023 PLT 314 07/13/2023 Lab Results Component Value Date NA 135 (L) 07/13/2023 K 4.3 07/13/2023 CL 102 07/13/2023 CO2 25 07/13/2023 Lab Results Component Value Date BUN 27 (H) 07/13/2023 Lab Results Component Value Date CREATININE 0.76 07/13/2023 No results found for: INR, PROTIME No results found for: PTT UPT: [] Patient declines test No results found for: PREGUR, PREGNANCYTE, HCGPREG COVID: [] None on file Lab Results Component Value Date COVIDUV Negative 12/26/2019 Blood Type: No results found for: ABO, LABRH, LABANTI, SPECEXP BP 138/80 (BP Patient Position: Sitting) Pulse 70 Temp 36.5 ??C (97.7 ??F) (Oral) Resp 16 Wt 72.6 kg (160 lb) SpO2 99% BMI 25.06 kg/m?? Pulse From Oximetry: [70 BPM] Physical Exam Airway Mallampati: III TM distance: >3 FB Neck ROM: full Cardiovascular Rhythm: regular Rate: normal Dental - normal exam Pulmonary Breath sounds clear to auscultation Abdominal Anesthesia Plan ASA 3 Anesthesia Type - general, to include intravenous induction. Specific risks discussed were dental injury, nausea, stroke, vomiting, nerve damage, infection, and myocardial infarction. Code status discussed? Yes (Full) The preoperative history and physical which was performed within 30 days of this procedure, has been reviewed and the clinically appropriate elements of the physical examination have been repeated. There are no changes to the documented history and physical or, if so, such changes are documented inthis note PAT Note Notes from 06/13/23 through 07/13/23 No notes of this type exist for this encounter. documented in this encounter Plan of Treatment Not on file documented as of this encounter Procedures Procedure Name Priority Date/Time Associated Diagnosis Comments ANESTHESIA INTUBATION Routine 07/13/2023 18:57 EST documented in this encounter Results * AL AN ELECTIVE ENDOTRACHEAL AIRWAY (07/13/2023 18:57 EST) Narrative [facility] - 07/13/2023 18:57 EST Emelyn Yoon MD ? 07/13/2023 19:13 Airway Date/Time: 07/13/2023 18:57 Urgency: elective Airway not difficult General Information and Staff Patient location during procedure: OR Anesthesiologist: Emelyn Yoon MD Performed: anesthesiologist Performed by: Emelyn Yoon MD Authorized by: Emelyn Yoon MD ?? Indications and Patient Condition Indications for airway management: anesthesia Sedation level: GA Preoxygenated: yes Patient position: sniffing Ventilation assessment: 0 - not attempted Final Airway Details Final airway type: endotracheal airway Successful airway: ETT Cuffed: yes Successful intubation technique: video laryngoscopy Acosta Facilitating devices/methods: intubating stylet Endotracheal tube insertion site: oral Blade: Karri Blade size: #3 ETT size (mm): 7.0 Cormack-Lehane Classification: grade IIa - partial view of glottis Placement verified by: chest auscultation and capnometry Measured from: lips ETT to lips (cm): 22 Number of attempts at approach: 1 Ventilation between attempts: none Number of other approaches attempted: 0 us Emelyn Yoon MD ANESTHESIA ORDERABLES Yolis fontanez Result [facility] documented in this encounter Visit Diagnoses Not on filedocumented in this encounter Administered Medications Inactive Administered Medications - up to 3 most recent administrations Medication Order MAR Action Action Date Dose Rate Site fentaNYL citrate (PF) injection intravenous, PRN, Starting on Faith 07/13/23 at 1854, Until Faith 07/13/23 at 1957, Routine, Anesthesia Intraprocedure Given 07/13/2023 18:54 EST 100 mcg lactated ringers (LR) infusion intravenous, FA IP EQF CONTINUOUS PRN FOR ONE STEP MEDS, Starting on Faith 07/13/23 at 1854, Until Faith 07/13/23 at 1957, Routine, Anesthesia Intraprocedure New Bag 07/13/2023 19:18 EST New Bag 07/13/2023 18:54 EST midazolam (PF) (VERSED) injection intravenous, PRN, Starting on Faith 07/13/23 at 1849, Until Faith 07/13/23 at 1957, Routine, Anesthesia Intraprocedure Given 07/13/2023 18:54 EST 2 mg Given 07/13/2023 18:49 EST 2 mg ondansetron (PF) (ZOFRAN) injection intravenous, PRN, Starting on Faith 07/13/23 at 1911, Until Faith 07/13/23 at 1957, Routine, Anesthesia Intraprocedure Given 07/13/2023 19:11 EST 4 mg propOFol (DIPRIVAN) injection intravenous, PRN, Starting on Faith 07/13/23 at 1854, Until Faith 07/13/23 at 1957, Routine, Anesthesia Intraprocedure Given 07/13/2023 18:54 EST 200 mg succinylcholine (ANECTINE) injection intravenous, PRN, Starting on Faith 07/13/23 at 1854, Until Faith 07/13/23 at 1957, Routine, Anesthesia Intraprocedure Given 07/13/2023 18:54 EST 120 mg documented in this encounter Care Teams Hotel Maid Relationship Specialty Start Date End Date Yesenia Morales NP [address] [place] [phone] PCP - General 06/14/21 documented as of this encounter
--- OUTSIDE RECORDS SUMMARY | 2024-08-01 21:56 | XMS_ITS | Encounter Summary ---
Author Organization [facility] Address [address] [place] [address] Care Team Providers Care Cmo & President Name Role Phone CarlineYesenia trejo MOHAN Primary Care Provider [phone] Reason for Visit * Reason Comments Follow-up Encounter Details Date Type Department Care Team (Late st Contact Info) Description 08/14/2023 8:45 EST Office Visit [facility] Orthopedics & Sport Medicine [address], [address] [place] [address] Gilbert Macias MD [address] [facility] [address] [place] [id number] Wound infection (Primary Dx) Social History Tobacco Use Types [...] 05/11/2021 16:02 EDT documented in this encounter Progress Notes * Gilbert Macias MD - 08/14/2023 0845 EST Images from the original note were not included. Orthopaedic Surgery Office Note Diogo Martinez 1970 [id number] Subjective. Patient is a 52-year-old [id number] male who was admitted to the hospital on July 13, 2023 for a right thumb laceration. The injury occurred at home while he was skinning a rabbit. He was started on doxycycline by his primary care physician. He continued to have swelling and redness. There is concerned about a possible IP joint infection. He was taken to the operating room and July 13. He had I&D of his complex wound. He also had repair of an extensor tendon laceration to the thumb. He was treated with antibiotics. He was followed up in this office. He was doing well at his visit on July 28. He called the office on December or with concerns about the wound. He felt it was more swollen and painful. He presents the office for a wound check right thumb. At that visit the wound appearance wasconcerning for abscess formation. Patient had a simple I&D done in the office with culture sent. He was started on Keflex. Cultures have grown MSSA. Patient Active Problem List Diagnosis Osteonecrosis of both hips (HCC-CMS) Left hip pain Finger infection Laceration of right thumb with infection Current Outpatient Medications Medication acetaminophen (TYLENOL) 500 mg tablet amitriptyline (ELAVIL) 10 mg tablet aspirin 81 mg EC tablet atorvastatin (LIPITOR) 40 mg tablet blood glucose meter BLOOD SUGAR DIAGNOSTIC, DISC MISC celecoxib (CELEBREX) 200 mg capsule cephalexin (KEFLEX) 500 mg capsule cyclobenzaprine (FLEXERIL) 10 mg tablet diphenhydrAMINE-acetaminophen 25-500 mg tablet doxycycline (VIBRA-TABS) 100 mg tablet empagliflozin (JARDIANCE) 10 mg tablet ergocalciferol, vitamin D2, (VITAMIN D ORAL) ibuprofen (MOTRIN) 200 mg tablet lancets melatonin 10 mg capsule metFORMIN (GLUCOPHAGE-XR) 500 mg ER tablet pregabalin (LYRICA) 200 mg capsule terbinafine HCL (LAMISIL) 250 mg tablet No current facility-administered medications for this visit. Allergies Allergen Reactions Cortisone Insomnia Steroids Erythromycin Nausea And Vomiting Objective: No data found. General: the patient is found to be a pleasant and cooperative male who appears to be alert and oriented x 3. He is well-developed, well-nourished and in no significant distress. Resp: Breathing is unlabored. Skin: warm, pink and dry to inspection and palpation. Extremities: Right thumb still has a small area of punctate drainage. The erythema does seem to be slightly better. The swelling is mildly improved. Neurovascularly intact with good capillary refill. Assessment: 1. 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 Gilbert Macias MD 08/14/23 10:54 documented in this encounter Plan of Treatment Not on file documented as of this encounter Visit Diagnoses Diagnosis Wound infection- Primary Posttraumatic wound infection not elsewhere classified documented in this encounter Care Teams Cmo & President Relationship Specialty Start Date End Date Yesenia Morales NP [address] [place] [phone] PCP - General 06/14/21 documented as of this encounter
--- OUTSIDE RECORDS SUMMARY | 2024-08-01 21:56 | XMS_ITS | Encounter Summary ---
Author Organization [facility] Address [address] [place] [address] Care Team Providers Care Engineering Leader Name Role Phone CarlineYesenia trejo MOHAN Primary Care Provider [phone] Reason for Visit * Reason Comments Post-OP Follow Up Encounter Details Date Type Department Care Team (Latest Contact Info) Description 07/21/2023 10:30 EST Post-op Visit [facility] Orthopedics & Sport Medicine [address] [place] [address] Yoni Florentino PA-C [address] [facility] [address] [place] [address] Laceration of right thumb with [...] documented in this encounter Progress Notes * Cecy Todd MA - 07/21/2023 1030 EST Diogo presents today for a post op evaluation of his right thumb DOS: 07/13/23 complex I&D with CB Sutures * Yoni Florentino PA-C - 07/21/2023 1030 EST CHIEF COMPLAINT: Right thumb laceration I&D 07/13/2023 Chief Complaint Patient presents with Right Thumb - Post-OP Follow Up SUBJECTIVE: Diogo here for postop of his right thumb laceration that required I&D. He also had apartial extensor tendon laceration that need repairing. He has been using AlumaFoam splint keeping the thumb in extension. Denies any significant pain. Sensations intact The past medical, family and social history have been reviewed in the patient chart. Past Medical History: Diagnosis Date Back pain Social History Tobacco Use Smoking status: Every Day Current packs/day: 0.75 Average packs/day: 0.8 packs/day for 35.4 years (26.5 ttl pk-yrs) Types: Cigarettes Start [...] daily. empagliflozin (JARDIANCE) 10 mg tablet Take 10 [...] No facility-administered medications prior to visit. OBJECTIVE: There were no vitals taken for this visit. There is no height or weight on file to calculate BMI. On physical exam, the patient is found to be a cooperative male who appears to be alert and oriented x 3. He is well-developed, well-nourished and in no significant distress. Breathing is unlabored. Skin is warm and dry to inspection and palpation. Appears to be neurovascularly intact. Ambulates with a steady gait. Exam of the right thumb well-healing surgical incision with sutures in place. There is minimal swelling but no erythema, fluctuance, discharge or signs of infection. Very mild tenderness to palpate along the DIP joint. He does exhibit intact flexion and extension. No swelling or tenderness along the flexor tendons or into the palm ASSESSMENT: Right thumb laceration I&D PLAN: At this time I would leave the sutures in place its only been 8 days. Follow-up in 5 to 7 days for repeat exam and likely suture removal at that time. He may continue using the AlumaFoam splintto keep the thumb in extension to protect the tendon repair. OTC pain medication as needed. 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 There may be inadvertent errors and omissions. Jacinto Florentino PA-C 07/21/2023 documented in this encounter Plan of Treatment Not on file documented as of this encounter Visit Diagnoses Diagnosis Laceration of right thumb with infection, initial encounter- Primary documented in this encounter Care Teams Engineering Leader Relationship Specialty Start Date End Date Yesenia Morales NP [address] [place] [phone] PCP - General 06/14/21 documented as of this encounter
--- OUTSIDE RECORDS SUMMARY | 2024-08-01 21:56 | XMS_ITS | Encounter Summary ---
Author Organization [facility] Address [address] [place] [address] Care Team Providers Care Diamond Broker Name Role Phone Carmen Yesenia PRESTON Primary Care Provider [phone] Reason for Referral * Referral (Routine/Next Available) - Authorization Not Required Specialty Diagnoses / Procedures Referred By Contac t Referred To Contact Pain Medicine Diagnoses Spondylosis of lumbar region without myelopathy or radiculopathy Procedures RADIOFREQUENCY ABLATION Clark Oliva MD Phone: tel: fax: [facility] [address] [place] [address] Phone: tel: Referral ID Status Reason Start Date Expiration Date Visits Requested Visits Authorized [id number] Authorization Not Required 08/04/2023 1 1 Reason for Visit * Referral (Routine/Next Available) - Authorization Not Required Specialty Diagnoses / Procedures Referred By Contac t Referred To Contact Pain Medicine Diagnoses Spondylosis of lumbar region without myelopathy or radiculopathy Procedures RADIOFREQUENCY ABLATION Clark Oliva MD Phone: tel: fax: [facility] [address] [place] [address] Phone: tel: Referral ID Status Reason Start Date Expiration Date Visits Requested Visits Authorized [id number] Authorization Not Required 08/04/2023 1 1 Encounter Details Date Type Department Care Team (Latest Contact Info) Description 11/03/2023 13:[address] [facility] [address] [place] [address] Clark Oliva MD [address] [place] [phone] Spondylosis of lumbar region without myelopathy or radiculopathy (Primary Dx) Discharge Disposition: Home or Self Care Social [...] Blood Pressure 144/92 11/03/2023 1505 EDT Pulse - - Temperature 36.4 ??C (97.5 ??F) 11/03/2023 1358 EDT Respiratory Rate 16 11/03/2023 1505 EDT Oxygen Saturation 99% 11/03/2023 1505 EDT Inhaled Oxygen Concentration - - Weight 70.3 kg (155 lb) 11/03/2023 1358 EDT Height 168.9 cm (5' 6.5) 11/03/2023 1358 EDT Body Mass Index 24.64 11/03/2023 1358 EDT documented in this encounter Functional Status [...] this encounter Discharge Instructions * Discharge Instructions* Nyla Kingsley - 11/03/2023 14:41 EDT [facility] Dr. Christal Lindo and Dr. Clark Oliva Patient Instructions after Radiofrequency Ablation Procedure Today you had your Radiofrequency Ablation. The purpose of this procedure is to relieve or reduce your pain. The following information should help you over the next few days/weeks regarding what you may expect. Please take it easy for the rest of the day. DO NOT drive a car or operate machinery for the remainder of the day. If you feel sore from the needles used from the block, please use ice on the area. You may leave the ice on for up to 20 minutes at a time. Do not use heat, as this can increase swelling. As long as your primary care doctor has indicated no restrictions, you may take a mild pain medicine, such as acetaminophen (Tylenol), or ibuprofen (Advil, Nuprin, Motrin) if needed. Please ask your doctor when you can restart your blood thinners___n/a , otherwise you may resume any medications that we asked you to hold for your procedure. Please keep track of how your pain feels over the next few weeks. On average patients start to notice relief at 3-4 weeks, but this can take up to 8-10 weeks to know whether this procedure was helpful. If the block causes numbness (asleep) feeling or weakness, that will wear off within several hours. Remove the bandage(s) today or tomorrow. If the area where the needle(s) were inserted becomes hot,red, swollen, increasingly tender, or you develop fever (100.5 or greater) or chills along with these symptoms, please call our office immediately at , *if after hours/weekend follow instructions below. If you develop increasingly severe neck or back pain, continued numbness or weakness in your arms for neck injection, or in your legs for back injection, or loss of bladder/bowel control, CALL IMMEDIATELY. *If after hours or on the weekend, please call the [facility] Provider Access line at , ask them to page the on-call Chronic Pain service doctor. This is a paging service so you will need to provide your name and a return contact number and a doctor will call you back. Instructions for follow-up: One of our nurses will be calling you 8 weeks after your procedure to see if you are getting relief, and we will document this in your medical record. In order to have this procedure repeated and approved by your insurance, we have to supply them with your results (% and months of relief).This information is an important part of your care. If at any time this wears off, please call your referringprovider to determine if this procedure is worth repeating after a 6 month period, or if you shouldschedule a follow-up appointment to discuss other options. Please call us with any questions at ([phone]). A nurse will also call you 7 months after your procedure to document your response from the Radiofrequency Ablation. documented in this encounter Medications at Time [...] or Self Care documented in this encounter Progress Notes * Nyla Kingsley - 11/03/2023 1500 EDT Dressing c/d/I to low back. Pt ambulating with steady gait. Denies numbness, tingling, and weaknessin bilateral legs. Pt discharged to spouse under canopy. * Clark Oliva MD - 11/03/2023 1344 EDT Patient Name: Diogo Martinez : 1970 Date of Service: 11/03/2023 Customs Verifier: Clark Oliva MD Continuous Pickling Line Pickler Helper: None Procedure: Therapeutic lumbar radiofrequency ablation at L4, L5, SA bilaterally Interval History: Patient presents today concerning their chronic lower back pain. Please refer to Hattie Powell's previous note for full details regarding the patient's pain complaint. Patient currently denies any progressive weakness, unexplained fever, trauma or unexplained weight loss. Patient has received medial branch blocks in the past with improvement in symptoms and functionality. The patient reports no recent changes in the character, quality, or distribution of the pain. There are no recent onset of new associated symptoms such as changes in strength, sensation, or bladder control. All previous medical records including current medications, anticoagulation status, any signs of current infection, and new imaging were reviewed. Injection History: 11/03/2023: lumbar radiofrequency ablation at L4, L5, SA bilaterally 11/03/2022: C7-T1 KATELYNN 05/13/2022: lumbar radiofrequency ablation at L4, L5, SA on the right 04/15/2022: lumbar radiofrequency ablation at L4, L5, SA on the left 03/31/2022: L4, L5, SA MBBs bilaterally: 80% relief >12 hours 03/18/2022: L4, L5, SA MBBs bilaterally: 80% relief > 12 hours Physical Exam: Vitals: BP 137/87 Temp 36.4 ??C (97.5 ??F) (Oral) Resp 16 Ht 168.9 cm (66.5) Wt 70.3 kg (155 lb) SpO2 100% BMI 24.64 kg/m?? General: Patient is alert and oriented, no acute distress Lungs: symmetric chest rise, no evidence of labored breathing Skin: clear, warm, dry and intact and no rashes, bruises or petechiae noted Assessment: 1. Spondylosis of lumbar region without myelopathy or radiculopathy Plan: All risks, benefits, and alternatives were thoroughly explained to Mr. Diogo Martinez who verbally communicated understanding of the management plan. Follow up: We will follow up with the patient in 8 weeks by phone to assess the response to the RF ablation that was done today. Procedure: The patient gave informed written consent to proceed with this procedure following a detailed discussion of the risks and benefits associated with lumbar radiofrequency ablation including but not limited to infection, bleeding, intrathecal injection, allergic reaction, further exacerbation of current symptoms, neurological injury, and lack of efficacy. The patient was then placed in prone position, the skin over the lumbosacral area was prepped with chlorhexadine, and the site was marked and draped with sterile towels. Strict sterile technique was maintained throughout the procedure. A timeout was performed with full staff present to identify the patient, verify the procedure being performed, and review allergies Fluoroscopy was used to identify the appropriate lumbar anatomy. The skin and subcutaneous tissue were anesthetized with 1% lidocaine. A 10 cm RFA cannula with 10 mm active tip was inserted under fluoroscopic guidance to contact the junction of the superior articulating process and transverse process at the aforementioned levels. Once periostium was contacted, the RFA cannula were advanced slightly anterior and cephalad to place the active tips parallel to the targeted nerves. Final needle position was confirmed with biplanar fluoroscopy. Sensory testing was performed at 50 Hz at each location. Motor testing was performed using 2 Hz and was negative for lower extremity muscle contraction at all levels up to 2.5 volts. Testing results can be found in nursing documentation. Each site was anesthetized with one ml lidocaine 2%. Thermal radiofrequency ablation was then performed at 80 degrees Celsius for 150 seconds. After treatment was completed, 1 ml of 0.5% bupivacaine was injected at each site and the needles were withdrawn. There was no paresthesia during needle placement and aspiration was negative at all times. The patient tolerated the procedure well and there were no apparent complications. Written and verbal discharge instructions were reviewed with the patient prior to discharge. RFA parameters: Please see additional documentation in this encounter. Clark Oliva MD 11/03/2023 14:20 documented in this encounter OR Notes * Preprocedure Instructions - Laxmi Harmon RN - 11/03/2023 1500 EDT Phone call related to scheduling appointment. Appointment scheduled with on 11/03/23, please arrive at 2pm, located at [facility] . Reminded patient of the following items: -Patient must have a tram driver to be present at drop off and nut picker for their appointment. They may not take a bus or taxi. -Patient needs to arrive 60 minutes ahead of procedural start time. Please check in at patient registration, before coming to the same day surgery waiting room. (Nurse will provide time of arrival.) -Please arrive with clean skin, do not apply any lotions, perfumes, creams or lidocaine patches. Please wear loose fitting, comfortable clothing, with elastic waistband if possible. -Patient must be infection free and off antibiotics for 14 days prior to appointment with written clearance from MD, also no active or open wounds. -Patient must contact clinic if any recent exposure to known positive Covid-19 with or without symptoms. -All vaccines should be 2 weeks before or after appointment for procedures that involve steroids. -Patient should not have had any oral steroids, or other steroid injections anywhere else in their body within the past 4-6 weeks. -Patient should notify our clinic if they have a scheduled appointment, or have recently been seen at any other pain clinic. -If patient is diabetic, inform them that if their blood sugar is greater than 250mg/dL the day of procedure, we will not be able to perform steroid injection. If blood sugars are running high, they should contact their PCP to discuss management before their appointment. -If patient is on coumadin, patient will need to get order from prescribing provider or PCP to haveblood draw for PT/INR before appointment. Pain Clinic providers will not accept fingerstick results. -Please notify our staff if you have a pacemaker or defibrillator. Procedures may require an adjustment to current medications, which include vitamins or supplements. -We require written approval from your prescribing provider (primary care doctor, neurologist or wrecking crane engine operator) before stopping anticoagulation medication (this includes ASPIRIN). Procedural Safety Medications and Fasting Instructions as applicable, lists exceptions below: Please stop all vitamins and supplements X 1 week prior to appointment Continue all other medications as prescribed. Patient advised to call our clinic: -If they develop any new symptoms, or exposure to someone who is sick with covid-19, flu, or cold symptoms. -Concerns for infection or are prescribed antibiotics. -Skin issues such as new or non-healing wounds, open areas or rashes. -Prescribed new medications. -If they need to reschedule appointment. If they have any questions regarding medication holds, they should contact the clinic to speak witha nurse. Directions and clinic phone number [phone] were provided to patient as needed. documented in this encounter Miscellaneous Notes * Addendum Note - Kristen Farias RN - 11/03/2023 1344 EDTEncounter addended by: Kristen Farias RN on: 01/08/2024 9:53 Actions taken: Flowsheet accepted, Contacts section saved * Addendum Note - Yanci Mccrary RN - 11/03/2023 1344 EDTEncounter addended by: Yanci Mccrary RN on: 01/18/2024 15:59 Actions taken: Contacts section saved * Addendum Note - Kristen Farias RN - 11/03/2023 1344 EDTEncounter addended by: Kristen Farias, RN on: 01/22/2024 11:57 Actions taken: Contacts section saved * Addendum Note - Kristen Farias, RN - 11/03/2023 1344 EDTEncounter addended by: Kristen Farias, RN on: 01/29/2024 9:37 Actions taken: Contacts section saved * Addendum Note - Kristen Farias RN - 11/03/2023 1344 EDTEncounter addended by: Kristen Farias, RN on: 01/29/2024 11:00 Actions taken: Contacts section saved * Addendum Note - Padmini Adame RN - 11/03/2023 1344 EDTEncounter addended by: Padmini Adame, RN on: 03/01/2024 14:40 Actions taken: Contacts section saved * Addendum Note - Kristen Farias, LAVONNE - 11/03/2023 1344 EDTEncounter addended by: Kristen Farias, RN on: 03/04/2024 8:58 Actions taken: Contacts section saved * Addendum Note - Kristen Farias, RN - 11/03/2023 1344 EDTEncounter addended by: Kristen Farias, RN on: 05/14/2024 9:27 Actions taken: Contacts section saved * Addendum Note - Tiarra Greco RN - 11/03/2023 134 EDTEncounter addended by: Tiarra Greco RN on: 05/24/2024 13:03 Actions taken: Contacts section saved * Addendum Note - Kristen Farias RN - 11/03/20231343 EDTEncounter addended by: Kristen Farias RN on: 05/27/2024 8:53 Actions taken: Flowsheet accepted, Contacts section saved * Addendum Note - Mikhail Powers RN - 11/03/20231343 EDTEncounter addended by: Mikhail Powers RN on: 05/31/2024 9:36 Actions taken: Contacts section saved documented in this encounter Plan of Treatment Scheduled Orders Name Type Priority Associated Diagnoses Orde r Schedule RADIOFREQUENCY ABLATION Procedures Routine Spondylosis of lumbar region without myelopathy or radiculopathy 1 Occurrences starting 11/03/2023 until 11/03/2023 documented as of this encounter Visit Diagnoses Diagnosis Spondylosis of lumbar region without myelopathy or radiculopathy- Primary Lumbosacral spondylosis without myelopathy documented in this encounter Administered Medications Inactive Administered Medications - up to 3 most recent administrations Medication Order MAR Action Action Date Dose Rate Site BUPivacaine (PF) (MARCAINE) 0.5% injection 6 mL 6 mL, marla-neural, NOW X1, 1 dose, On Mon11/03/23 at 1515, Routine, Intraprocedure Given by Other 11/03/2023 14:53 EDT 6 mL Back lidocaine (PF) 20 mg/mL (2 %) injection 120 mg 120 mg (6 mL), marla-neural, NOW X1, 1 dose, On Mon11/03/23 at 1445, Routine, Intraprocedure Given by Other 11/03/2023 14:47 EDT 120 mg Back documented in this encounter Discontinued Medications Medication Sig Discontinue Reason Start Date End Da te pregabalin (LYRICA) 200 mg capsule Generally BID Therapy completed 04/10/2021 10/19/2023 empagliflozin (JARDIANCE) 10 mg tablet Take 1 Tablet by mouth daily. Therapy completed 10/19/2023 celecoxib (CELEBREX) 200 mg capsule TAKE ONE CAPSULE BY MOUTH EVERY DAY FOR PAIN Therapy completed 10/04/2022 10/19/2023 documented as of this encounter Historical Medications * This list may reflect changes made after this encounter. canagliflozin (INVOKANA ORAL) Take 1 Tablet by mouth daily. added in this encounter Orders Medications Ordered That Ki ht Not Have Been Administered Count Last Ordered Date First Ordered Date bupivacaine-EPINEPHrine (PF) 0.5 %-1:200,000 injection 6 mL 1 11/03/2023 documented in this encounter Care Teams Diamond Broker Relationship Specialty Start Date End Date Yesenia Morales NP [address] [place] [address] PCP - General 06/14/21 documented as of this encounter
--- OUTSIDE RECORDS SUMMARY | 2024-08-01 21:56 | XMS_ITS | Encounter Summary ---
Author Organization [facility] Address [address] [place] [address] Care Team Providers Care Auto Brake Mechanic Name Role Phone CarlineYesenia trejo MOHAN Primary Care Provider [phone] Reason for Visit * Reason Comments Follow-up Encounter Details Date Type Department Care Team (Late st Contact Info) Description 08/28/2023 9:30 EST Office Visit [facility] [address] [place], [place] [id number] Yoni Florentino PA-C [address] [facility] [address] [place] [address] Laceration of right thumb with infection, initial encounter (Primary Dx); Infection of thumb Social History Tobacco Use Types Packs/Day Years [...] documented in this encounter Progress Notes * Yoni Florentino PA-C - 08/28/2023 0930 EST CHIEF COMPLAINT: Right thumb laceration I&D 07/13/2023 Chief Complaint Patient presents with Right Thumb - Follow-up SUBJECTIVE: Diogo here for follow-up of his right thumb I&D. Previous visit there was some recurrence of swelling and erythema and he was placed back on the antibiotics and has 1 more dose left for today. He states he is much less swelling and redness but a few days ago he noticed a small dark spot over the incision area. Last visit I did remove a spit stitch from the repaired extensor tendon.He continues using the splint. Denies any drainage or discharge from the incision sites. Movements are limited but intact. Sensations intact The past medical, family and social history have been reviewed in the patient chart. Past Medical History: Diagnosis Date Back pain Social History Tobacco Use Smoking status: Every Day Current packs/day: 0.75 Average packs/day: 0.8 packs/day for 35.5 years (26.6 ttl pk-yrs) Types: Cigarettes Start [...] CAPSULE BY MOUTH EVERY DAY FOR PAIN (Patient not taking: Reported on 08/14/2023) cephalexin (KEFLEX) 500 mg capsule Take 1 Capsule by mouth 4 times daily for 7 days. cholecalciferol (VITAMIN D3) 1,250 mcg (50,000 unit) [...] (VITAMIN D ORAL) Take by mouth. weekly FREESTYLE KVNG 3 SENSOR device Use as directed. ibuprofen (MOTRIN) 200 mg tablet Take 1 Tablet by mouth at bedtime as needed for Pain. lancets by not applicable route. LANTUS SOLOSTAR U-100 INSULIN 100 unit/mL (3 mL) injection pen Inject 10 units every day by subcutaneous route. melatonin 10 mg capsule Take 10 [...] steady gait. Exam of the right thumb well-healed surgical incision there is a little dark almost blue looking spot is able to open up with forceps and a small piece of suture removal was easily removed. There is no drainage or signs of infection. There is some very faint erythema over the dorsal surface with some moderate swelling however this does show improvement as compared to previous visit. He is able toflex about 10 degrees and return to full extension. ASSESSMENT: Right thumb infection PLAN: Overall continues to show improvement. Still has slight erythema and swelling but that is also showing a trend towards improvement. Removed a tiny remnant of suture which may have been causing some irritation. Recommend he continue using the splint to protect the extensor tendon. 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 I would recommend another follow-up visit in 1 week for wound check This note was prepared using voice recognition software and the EMR. There may be inadvertent errors and omissions. Jacinto Florentino PA-C 08/28/2023 * Cecy Todd MA - 08/28/2023 0915 EST Diogo presents today for a f/u evaluation of his right thumb DOS: 07/13/23 right thumb laceration I&D LV with 08/21/23 per note suture removed. Placed in aluminum splint to maintain extension for next 3 weeks. Wound check in one week. Continue antibiotics. documented in this encounter Plan of Treatment Not on file documented as of this encounter Visit Diagnoses Diagnosis Laceration of right thumb with infection, initial encounter- Primary Infection of thumb documented in this encounter Discontinued Medications Medication Sig Discontinue Reason Start Date End Da te ergocalciferol, vitamin D2, (VITAMIN D ORAL) Take by mouth. weekly 08/28/2023 documented as of this encounter Historical Medications * This list may reflect changes made after this encounter. cholecalciferol (VITAMIN D3) 1,250 mcg (50,000 unit) capsule Take 1 Capsule by mouth once a week. TREY CALDERON 3 SENSOR device Use as directed. 08/23/2023 LANTUS SOLOSTAR U-100 INSULIN 100 unit/mL (3 mL) injection pen Inject 14 Units into the skin once daily. 08/16/2023 added in this encounter Care Teams Auto Brake Mechanic Relationship Specialty Start Date End Date Yesenia Morales NP [address] [place] [address] PCP - General 06/14/21 documented as of this encounter
--- OUTSIDE RECORDS SUMMARY | 2024-08-01 21:56 | XMS_ITS | Encounter Summary ---
Author Organization [facility] Address [address] [place] [address] Care Team Providers Care Field Marketer Name Role Phone Yesenia Morales NP Primary Care Provider [phone] Reason for Referral * Radiology Services (Routine/Next Available) - Authorization Not Required Specialty Diagnoses / Procedures Referred By Contac t Referred To Contact Radiology Diagnoses Spondylosis without myelopathy or radiculopathy, lumbar region Procedures MR LUMBAR SPINE WO CONTRAST Hattie Powell NP [address] [place] [address] Phone: tel: fax: [facility] Referral ID Status Reason Start Date Expiration Date Visits Requested Visits Authorized [id number] Authorization Not Required 4 1 1 Reason for Visit * Radiology Services (Routine/Next Available) - Authorization Not Required Specialty Diagnoses / Procedures Referred By Contac t Referred To Contact Radiology Diagnoses Spondylosis without myelopathy or radiculopathy, lumbar region Procedures MR LUMBAR SPINE WO CONTRAST Hattie Powell NP [address] [place] [address] Phone: tel: fax: [facility] Referral ID Status Reason Start Date Expiration Date Visits Requested Visits Authorized [id number] Authorization Not Required 4 1 1 Encounter Details Date Type Department Care Team (Latest Contact Info) Description 07/02/2024 10:33 EST - 07/02/2024 23:59 EST Hospital Encounter [facility] [address] [place] [address] Spondylosis without myelopathy or radiculopathy, lumbar region Discharge Disposition: Home or Self Care Social [...] Spondylosis without myelopathy or radiculopathy, lumbar region documented in this encounter Results * MR LUMBAR SPINE WO CONTRAST [...] REGARDING THIS REPORT PLEASE CALL [facility] AT [phone] Narrative 07/03/2024 18:52 EST PROCEDURE INFORMATION: Exam: [...] CONCERNS REGARDING THIS REPORT PLEASE CALL [facility] [phone] Hattie Powell NP IMG MRI ORDERABLES Final Resu lt documented in this encounter Visit Diagnoses Diagnosis Spondylosis without myelopathy or radiculopathy, lumbar region documented in this encounter Care Teams Field Marketer Relationship Specialty Start Date End Date Yesenia Morales NP [address] [place] [id number] PCP - General 06/14/21 documented as of this encounter
--- OUTSIDE RECORDS SUMMARY | 2024-08-01 21:56 | XMS_ITS | Encounter Summary ---
Author Organization [facility] Address [address] [place] [address] Care Team Providers Care Woodworking Machine Setter Name Role Phone CarlineYesenia trejo MOHAN Primary Care Provider [phone] Encounter Details Date Type Department Care Team (Latest Contact Info) Description 10/19/2023 Travel Social History Tobacco Use Types Packs/Day [...] on filedocumented in this encounter Care Teams Woodworking Machine Setter Relationship Specialty Start Date End Date Yesenia Morales NP [address] [place] [phone] PCP - General 06/14/21 documented as of this encounter
--- OUTSIDE RECORDS SUMMARY | 2024-08-01 21:56 | XMS_ITS | Clinical Summary ---
Author Organization [facility] Address [address] [place] [address] Care Team Providers Care Magistrate Assistant Name Role Phone Carmen Yesenia MOHAN Primary Care Provider [phone] Allergies Active Allergy Reactions Criticality Noted Date [...] (12/28/2021): Added automatically from request for surgery [id number] Osteonecrosis of both hips ([facility]) 06/22/2021 Encounters Date Type Department Care Team Description 07/02/2024 10:33 EST - 07/02/2024 23:59 EST Hospital Encounter [facility] MRI [address] [id number] Spondylosis without myelopathy or radiculopathy, lumbar region Discharge Disposition: Home or Self Care from Last 3 Months Surgical History Surgery Date Site/Laterality Comments NASAL SEPTUM SURGERY as teen ager KNEE SURGERY Left repair LIPOMA RESECTION 04/10/2021 back of skull HIP ARTHROSCOPY Left 07/19/2022 FINGER SURGERY 07/13/2023 thumb Medical History Medical History Date Comments Back pain Family History Medical History Relation Comments Diabetes Mother Relation Status Comments Father Mother Alive Social History Tobacco Use Types Packs/Day Years [...] 15:39 EDT Sexual Orientation Not on file Obstetrics History Last Filed Vital Signs Vital Sign Reading [...] Body Mass Index 24.64 11/03/2023 1358 EDT Plan of Treatment Health Maintenance Due Date Last Done Comments Hepatitis C Screen 1971 Lung Cancer Screening 1970 Pneumococcal Immunization (1 of 2 - PCV) 10/31/1977 Hepatitis B Vaccine (1 of 3 - 19+ 3-dose series) 10/31/1990 COVID-19 Vaccine ( season) 2024 08/16/2023, 05/21/2021, 10/23/2020 Procedures Procedure Name Priority Date/Time Associated Diagnosis [...] REGARDING THIS REPORT PLEASE CALL [facility] AT [phone] Narrative 07/03/2024 18:52 EST PROCEDURE INFORMATION: Exam: [...] CONCERNS REGARDING THIS REPORT PLEASE CALL [facility] [phone] us Hattie Powell NP IMG MRI ORDERABLES Final Resu lt from Last 3 Months Insurance [facility] Advance Directives For more information, please contact: [phone] * Full Code (Latest Code Status on File) Date Activated Date Inactivated Comments 07/19/2022 6:35 07/19/2022 12:55 Question Answer Comments When the patient has NO PULSE: Full Code / CPR Who Made the Decision? Patient Care Teams Magistrate Assistant Relationship Specialty Start Date End Date Yesenia Morales NP [address] [place] [phone] PCP - General 06/14/21
--- OUTSIDE RECORDS SUMMARY | 2024-08-01 21:56 | XMS_ITS | Encounter Summary ---
Author Organization [facility] Address [address] [place] [address] Care Team Providers Care Replacer Name Role Phone CarlineYesenia trejo MOHAN Primary Care Provider [phone] Reason for Visit * Reason Comments Follow-up Encounter Details Date Type Department Care Team (Late st Contact Info) Description 08/21/2023 8:[address] [facility] Orthopedics & [facility] Medicine [address], [address] [place], [place] [id number] Yoni Florentino PA-C [address] [facility] [place] [address] Infection of thumb (Primary Dx); Laceration of right thumb with infection, initial encounter Social History Tobacco Use Types Packs/Day [...] mouth 4 times daily for 7 days. 28 Capsule 08/21/2023 documented in this encounter Progress Notes * Cecy Todd MA - 08/21/2023 0815 EST Diogo presents today for a f/u evaluation of his right thumb DOS: 07/13/23 right thumb laceration I&D LV with CM 08/14/23 per note wound infection. Small area of punctate drainage. Swelling mildly improved. Continue antibiotics, and soaks. 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 Yoni Whitaker PA-C - 08/21/2023 0815 EST CHIEF COMPLAINT: Right thumb laceration I&D 07/13/2023 SUBJECTIVE: Diogo here for follow-up evaluation of his right thumb laceration. He has had much less swelling and much less pain and discomfort. There is been no recent discharge. However he has noticed a small piece of suture becoming more exposed as he had less swelling. Movement and sensation remain intact. On 08/14/[address] Macias he was having small amount of drainage and increased swelling and redness. He was started on Keflex cultures showed MSSA. He was instructed to continue antibiotics, continue soaks The past medical, family and social history [...] 1 Capsule by mouth 4 times daily. cyclobenzaprine (FLEXERIL) 10 mg tablet TAKE TWO [...] steady gait. Exam of the right thumb slight amount of swelling and erythema around the IP joint there is a exposed Ethibond suture however there is no discharge. He shows active flexion and extension. Without lymphangitis or proximal lymphadenopathy. ASSESSMENT: Right thumb infection PLAN: The suture was removed after digital block of 5 cc of lidocaine and using a #11 blade was able to remove the piece of suture. He was placed in a aluminum splint to maintain extension which should be left in place for 3 weeks. 1 week follow-up for wound check sooner if symptoms worsen. We willextend his antibiotics an additional week. Continue leave of absence from work until more healing. Further evaluation and recommendation for return to work at next visit Case reviewed with Dr. Hernandez This note was prepared using voice recognition software and the EMR. There may be inadvertent errors and omissions. Jacinto Florentino PA-C 08/21/2023 documented in this encounter Plan of Treatment Not on file documented as of this encounter Visit Diagnoses Diagnosis Infection of thumb- Primary Laceration of right thumb with infection, initial encounter documented in this encounter Discontinued Medications Medication Sig Discontinue Reason Start Date End Da te cephalexin (KEFLEX) 500 mg capsule Take 1 Capsule by mouth 4 times daily. Reorder 08/11/2023 08/21/2023 documented as of this encounter Care Teams Replacer Relationship Specialty Start Date End Date Yesenia Morales NP [address] [place] [phone] PCP - General 06/14/21 documented as of this encounter
--- OUTSIDE RECORDS SUMMARY | 2024-08-01 21:56 | XMS_ITS | Encounter Summary ---
Author Organization [facility] Address [address] [place] [address] Care Team Providers Care Database Support Name Role Phone Yesenia Morales NP Primary Care Provider [phone] Reason for Referral * PT/OT/ST (Routine/Next Available) - Closed Specialty Diagnoses / Procedures Referred By Sajan calix Referred To Contact Diagnoses Laceration of right thumb without foreign body without damage to nail, subsequent encounter Yoni Florentino PA-C Phone: tel: fax: Referral ID Status Reason Start Date Expiration Date V isits Requested Visits Authorized [id number] Closed Specialty Services Required 07/28/2023 1 1 Question Answer Reason for Request: S/P right thumb laceration I&D 07/13/23 Comments [facility] PT [address] [place] [address] PH: Reason for Visit * Reason Comments Follow-up Encounter Details Date Type Department Care Team (Late st Contact Info) Description 07/28/2023 13:30 EST Office Visit [facility] [address], [address] [place], [place] [phone] Yoni Florentino PA-C [address] [facility] [address] [place] [phone] Laceration of right thumb without foreign body without damage to nail, subsequent encounter (Primary Dx) Social History Tobacco Use [...] Progress Notes * Cecy Todd MA - 07/28/2023 1330 EST Diogo presents today for a f/u evaluation of his right thumb DOS: 07/13/23 right thumb laceration I&D LV with 07/21/23 per note plan to leave sutures in place for another 5 to 7 days. Continue AlumaFoam splint to keep thumb in extension to protect the tendon repair Sutures * Yoni Florentino PA-C - 07/28/2023 1330 EST CHIEF COMPLAINT: Right thumb laceration I&D 07/13/2023 Chief Complaint Patient presents with Right Thumb - Follow-up SUBJECTIVE: Diogo here for follow-up evaluation of his right thumb laceration including partial extensor tendon repair. Overall is doing well denies any pain or discharge. He does have a fair amount of stiffness in the IP joint however movement and sensation remain intact. The past medical, family and social history [...] steady gait. Exam of the right thumb with minimal swelling no erythema, fluctuance, discharge or signs of infection. Well-healed incision/laceration. He does have up to 10 degrees of flexion and full extension. No tenderness to palpation. ASSESSMENT: Right thumb laceration PLAN: Overall is doing quite well sutures were easily removed. There is no signs of infection. Continue working on gentle tendon glide but avoiding aggressive flexion allowing the partial tendon repair to heal for a few more weeks. He was given referral to occupational therapy to work on range of motion. Follow-up as needed This note was prepared using voice recognition software and the EMR. There may be inadvertent errors and omissions. Jacinto Florentino PA-C 07/28/2023 documented in this encounter Plan of Treatment Scheduled Referrals Name Type Priority Associated Diagnoses Order Schedule AMB CONS/FOLLOW UP PHYSICAL THERAPY - OUTSIDE OF NETWORK Outpatient Referral Routine/Next Available Laceration of right thumb without foreign body without damage to nail, subsequent encounter Expected: 08/04/2023 (Approximate), Expires: 07/28/2024 documented as of this encounter Visit Diagnoses Diagnosis Laceration of right thumb without foreign body without damage to nail, subsequent encounter- Primary documented in this encounter Care Teams Database Support Relationship Specialty Start Date End Date Yesenia Morales NP [address] [place] [phone] PCP - General 06/14/21 documented as of this encounter
--- OUTSIDE RECORDS SUMMARY | 2024-08-01 21:56 | XMS_ITS | Encounter Summary ---
Author Organization [facility] Address [address] [place] [address] Care Team Providers Care Packer And Carry Out Name Role Phone Yesenia Morales NP Primary Care Provider [phone] Reason for Referral * Specialty Diagnoses / Procedures [facility] Referred To Contact Mj Hernandez MD Phone: tel: fax: Referral ID Status Reason Start Date Expiration Date Visits Re quested Visits Authorized Comments - Fevers - General signs of not feeling well - Worsening pain Reason for Visit * Reason Comments Finger Injury The patient lacerate d his right thumb while skinning a rabbit on Monday. The patient cleaned his wound and bandaged it. Today the patient comes to the ED because the finger appears infected. Encounter Details Date Type Department Care Team (Late st Contact Info) Description 07/13/2023 15:32 EST - 07/13/2023 21:47 EST Emergency [facility] - [facility] Operating Room [address] [place] [address] Finger infection (Primary Dx) Discharge Disposition: Home or Self Care Social History Tobacco Use Types Packs/Day Years Used Date Smoking Tobacco: Every Day Cigarettes 0.8 36.4 Started: 03/14/1988 Smokeless Tobacco: Never Comments:not there yet Alcohol Use Standard Drinks/Week Comments Not Currently 0 (1 standard drink = 0.6 oz pur e alcohol) 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 Jocelyn 3 Sex and Gender Information Value Date Recorded Sex Assigned at Male 07/02/2024 10:33 EST Legal Sex Male 17:50 EST Gender Identity Male 05/11/2021 15:39 EDT Sexual Orientation Not on file documented as of this encounter Last Filed Vital Signs Vital Sign Reading Time Taken Comments Blood Pressure 139/93 07/13/20234 EST Pulse 70 07/13/2023 1530 EST Temperature 36.5 ??C (97.7 ??F) 07/13/20232133 EST Respiratory Rate 14 07/13/2023 2134 EST Oxygen Saturation 98% 07/13/2023 213 EST Inhaled Oxygen Concentration - - Weight [...] encounter Discharge Instructions * Discharge Instructions* Alejandra Nuno RN - 07/13/2023 20:39 EST You last received [...] in this encounter H&P Notes * Yoni Florentino PA-C - 07/13/2023 1722 EST Orthopaedic Surgery Consultation Note Binh Martinez 1970 [id number] Chief Complaint: Right thumb infection. Chief Complaint [...] positive for GPC. Significant past medical history niv-lzkzyqa-hztduffnw diabetic recent A1c yesterday was 13.6%. Complains of pain and swelling over the IP joint of the thumb with limited range of motion. Sensations remain intact Last p.o. intake ate lunch at noon time and had a soda around 3:00 PM Review of Systems: As above, otherwise negative Note Past Medical History: Active Ambulatory Problems Diagnosis Date Noted Osteonecrosis of both hips (HCC-CMS) 06/22/2021 Left hip pain 12/28/2021 Resolved Ambulatory [...] Yoni Florentino PA-C Orthopaedics and Sports Medicine [facility], [facility] [address] [place], [place] Cosigned by Mj Hernandez MD at 07/13/2023 17:46 EST Associated attestation - Mj Hernandez MD - 07/13/2023 1746 EST Preop attestation complete documented in this encounter OR Notes * OR Surgeon - Mj Hernandez MD - 07/13/2023 1937 EST COMPLEX INCISION AND DRAINAGE, WOUND, UPPER EXTREMITY (R) Operative Note Date: 07/13/2023 Location: [facility] OR Name: Binh Martinez, : 1970, Diagnosis [...] (Active) Wound 07/13/23 Right Hand (Active) Staff: Ham Marker: Charlene Kent RN OR TECH: Natalia Chawla [...] Notes * Cristal Meredith RN - 07/13/2023 1827 EST Pt leaving to go to OR [...] ill, which these weren't. culture sent to [facility] with GPC's so far. History was provided by: the patient Records reviewed include:pcp office note from today, [facility] culture results. Patient's pertinent PMH, [...] POCT GLUCOSE, INTERFACED Routine 07/13/2023 19:58 EST [facility] AF[facility] CULTURE SMEAR Today 07/13/2023 19:08 EST [...] 07/14/2023 10:4 4 EST us Scan 2 [employer] Driven Brush Maker PROCEDURE/MINOR SURGICAL OR DERABLES Final Result * ECG REPORT - SCANNED (07/14/2023 8:23 EST) 07/14/2023 8:23 EST us Scan 2 Power Driven Brush Maker PROCEDURE/MINOR SURGICAL OR DERABLES Final Result * (ABNORMAL) POCT GLUCOSE, INTERFACED (07/13/2023 19:58 EST) Glucose, POC 157(H) 70 - 100 mg/dL 07/13/2023 20:00 EST [facility] LAB POC COMMENT (GLUCOSE) Test Performed in SDS 07/13/2023 20:00 EST [facility] Blood CAPILLARY BLOOD / Unknown 07/13/2023 19:58 EST 07/13/2023 19:59 EST us Provider Unknown POINT OF CARE TEST ORDERABLE S Final Result Performing Organization Address City/[facility]/ZIP Co de Phone Number [facility] [address] [place] [address] * [facility] AFB CULTURE SMEAR (07/13/2023 19:08 EST) AFB Culture see scanned results 09/01/2023 12:08 EST [facility] Tissue THUMB STRUCTURE / Unknown 07/13/2023 19:08 EST 07/13/2023 20:51 EST us Mj Hernandez MD MICROBIOLOGY - NERAL ORDERABLES Final Result Performing Organization Address City/[facility]/ZIP Co de Phone Number [facility] [address] [place] [address] * AFB CULTURE/SMEAR, OTHER (07/13/2023 19:08 EST) Organism ID Refer to AFB culture/Smear ([facility]) for results 09/01/2023 12:08 [facility] AFB Smear Test not performed 09/01/2023 12:08 [facility] Tissue THUMB STRUCTURE / Unknown 07/13/2023 19:08 EST 07/13/2023 20:51 EST Comment:Pre-op diagnosis: Laceration of right thumb with infection, initial encounter [S61.011A, L08.9] us Mj Hernandez MD MICROBIOLOGY - NERAL ORDERABLES Final Result Performing Organization Address [facility] Co de Phone Number [facility] [address] [place] [id number] * (ABNORMAL) ANAEROBE CULTURE/SMEAR(INC. AEROBES), OTHER (07/13/2023 19:08 EST) Organism ID No Anaerobes Isolated VITEK SUSCEPTIBILITY 3 11:58 [facility] Organism ID Moderate Staphylococcus species(A) VITEK SUSCEPTIBILITY 3 11:58 [facility] Comment: Langeloth morphology consistent with other cultures from the same site/source received within the last 3 days. Refer to other culture for identification and susceptibility testing. See [id number] Smear Few Neutrophils Present(A) 3 11:58 [facility] Smear No bacteria seen(A) 3 11:58 [facility] Comment:Tissue processed- Ri ght thumb IP joint Tissue THUMB STRUCTURE / Unknown 07/13/2023 19:08 EST 07/13/2023 20:51 EST Comment:Pre-op diagnosis: Laceration of right thumb with infection, initial encounter [S61.011A, L08.9] us Mj Hernandez MD MICROBIOLOGY - GE NERAL ORDERABLES Final Result Performing Organization Address City/[facility]/ZIP Co de Phone Number [facility] [address] [place] [address] * EKG 12-LEAD (07/13/2023 17:29 EST) 07/13/2023 17:2 9 EST Narrative [facility] - 07/14/2023 8:18 EST ? [facility] ? Test Date: ?2023-07-13 Pat Name: ? BINH MARTINEZ ? Department: ? Room: ? BHALL01 Gender: ? Male ? Machine Quilt Stuffer: ?? CH : ?1970 ? Requested By: JESUS Ramos Order Number: [id number] ? Salvador MD: ?? MARY IYER MD ? Measurements Intervals ?[place] ? Rate: ? 75 ? P: ?63 VT: ? 148 ?QRS: ?97 QRSD: ? 108 ?T: ?60 QT: ? 384 ? QTc: ?428 ? Interpretive Statements Normal sinus rhythm Rightward axis No previous ECG available for comparison I reviewed the tracing and have either agreed or edited the findings in this report. Electronically Signed On 07-14-2023 08:18:32 EST by MARY IYER MD. Procedure Note Mary Iyer MD - 07/14/2023 [facility] Test Date: 2023-07-13 Pat Name: BINH MARTINEZ Department: Room: [place] [address] Gender: Male Machine Quilt Stuffer: : 1970 Requested By: JESUS Ramos Order Number: [id number] Reading MD: MARY IYER MD Measurements Intervals [place] Rate: 75 P: 63 VT: 148 QRS: 97 QRSD: 108 T: 60 QT: 384 QTc: 428 Interpretive Statements Normal sinus rhythm Rightward axis No previous ECG available for comparison I reviewed the tracing and have either agreed or edited the findings inthis report. Electronically Signed On 07-14-2023 08:18:32 EST by MARY HARTMAN. us Nicky Pope PA-C CARDIAC ECG ORDERABLES Final Result [facility] * XR FINGER RIGHT 2 OR MORE VIEWS (07/13/2023 16:11 EST) Anatomical Region Laterality Modality Upper Extremities Right Computed Radio graphy 07/13/2023 16:3 2 EST Impressions 07/13/2023 17:20 EST No acute bony abnormality. THIS DOCUMENT HAS BEEN ELECTRONICALLY SIGNED BY DANIA CASTILLO MD FOR ANY QUESTIONS OR CONCERNS REGARDING THIS REPORT PLEASE CALL [facility] AT [phone] Narrative 07/13/2023 17:20 EST PROCEDURE INFORMATION: Exam: [...] acute malalignment. Soft tissues: Normal. Procedure Note Dania Castillo MD - 07/13/2023 PROCEDURE INFORMATION: Exam: [...] CONCERNS REGARDING THIS REPORT PLEASE CALL [facility] [phone] Nicky Pope PA-C [facility]MM[facility] DIAGNOSTIC IMAGING ORDERABLES Final Result * (ABNORMAL) C REACTIVE PROTEIN (07/13/2023 16:04 EST) C-Reactive Protein 44.0(H) <10.0 mg/L 07/13/2023 16:38 [facility] Blood VENOUS BLOOD / Unknown Venipuncture / Unknown 07/13/2023 16:04 EST 07/13/2023 16:08 EST Nicky Pope PA-C CHEMISTRY & BLOOD GAS O RDERABLES Final Result [facility] [address] [place] [address] * (ABNORMAL) COMPREHENSIVE METABOLIC PANEL (CMP) (07/13/2023 16:04 EST) Sodium 135(L) 136 - 145 mmol/L 07/13/2023 16:38 [facility] Potassium 4.3 3.5 - 5.0 mmol/L 07/13/2023 16:38 [facility] Chloride 102 96 - 110 mmol/L 07/13/2023 16:38 [facility] CO2 Total 25 22 - 32 mmol/L 07/13/2023 16:38 [facility] Glucose 228(H) 70 - 99 mg/dl 07/13/2023 16:38 [facility] BUN 27(H) 10 - 26 mg/dL 07/13/2023 16:38 [facility] Creatinine 0.76 0.66 - 1.25 mg/dL 07/13/2023 16:38 [facility] eGFR 109 >60 mL/min/1.7 3m2 07/13/2023 16:38 [facility] Total Protein 6.4 6.3 - 8.2 g/dL 07/13/2023 16:38 [facility] Albumin 3.8 3.4 - 4.9 g/dL 07/13/2023 16:38 [facility] Alkaline Phosphatase 101 38 - 126 U/L 07/13/2023 16:38 [facility] AST 22 15 - 46 U/L 07/13/2023 16:38 [facility] ALT 23 <50 U/L 07/13/2023 16:38 [facility] Bilirubin, Total <0.5 <1.4 mg/dL 07/13/20 16:38 [facility] Calcium 9.2 8.5 - 10.5 mg/dL 07/13/2023 16:38 [facility] Albumin/Globulin Ratio 1.5 1.0 - 2.5 g/dL 07/13/2023 16:38 [facility] Anion Gap 8 5 - 14 mmol/L 07/13/2023 16:38 [facility] Blood VENOUS BLOOD / Unknown Venipuncture / Unknown 07/13/2023 16:04 EST 07/13/2023 16:08 EST us Nicky Pope PA-C CHEMISTRY & BLOOD GAS O RDERABLES Final Result [facility] [address] [place] [address] * (ABNORMAL) COMPLETE BLOOD COUNT AND DIFFERENTIAL (07/13/2023 16:04 EST) WBC 12.74(H) 4.00 - 10.40 K/cmm 07/13/2023 16:19 [facility] RBC 4.64 4.36 - 5.78 M/cmm 07/13/2023 16:19 [facility] Hemoglobin 14.1 13.8 - 17.3 g/dL 07/13/2023 16:19 [facility] HCT 42.1 39.5 - 50.2 % 07/13/2023 16:19 [facility] MCV 91 81 - 95 fL 07/13/2023 16:19 [facility] MCH 30.4 27.6 - 33.0 pg 07/13/2023 16:19 [facility] MCHC 33.5 32.8 - 36.4 g/dL 07/13/2023 16:19 [facility] RDW-CV 13.5 <14.2 % 07/13/2023 16:19 [facility] RDW-SD 45.1 <46.0 fl 07/13/2023 16:19 [facility] PLT 314 141 - 377 K/cmm 07/13/2023 16:19 [facility] MPV 9.4(L) 9.5 - 12.7 fL 07/13/2023 16:19 [facility] % Neutrophils 70.7 % 07/13/2023 16:19 [facility] % Lymphocytes 20.5 % 07/13/2023 16:19 [facility] % Monocytes 5.0 % 07/13/2023 16:19 [facility] % Eosinophils 2.5 % 07/13/2023 16:19 [facility] % Basophils 0.8 % 07/13/2023 16:19 [facility] % Immature Grans 0.5 % 07/13/20 16:19 [facility] Absolute Neutrophils 9.00(H) 2.20 - 8.85 K/cmm 07/13/2023 16:19 [facility] Absolute Lymphocytes 2.61 1.09 - 3.30 K/cmm 07/13/2023 16:19 [facility] Absolute Monocytes 0.64 0.10 - 0.80 K/cmm 07/13/2023 16:19 [facility] Absolute Eosinophils 0.32 0.03 - 0.61 K/cmm 07/13/2023 16:19 [facility] ABS Basophils 0.10 0.01 - 0.11 K/cmm 07/13/2023 16:19 [facility] Absolute Immature Grans 0.07(H) 0.00 - 0.06 K/cmm 07/13/2023 16:19 [facility] Type of Differential: Auto 07/13/2023 16:19 [facility] Blood VENOUS BLOOD / Unknown Venipuncture / Unknown 07/13/2023 16:04 EST 07/13/2023 16:08 EST us Nicky Pope PA-C PACKAGES & DNA PROBE OR DERABLES Final Result [facility] [address] [place] [address] documented in this encounter Visit Diagnoses Diagnosis Finger infection- Primary Unspecified local infection of skin and subcutaneous tissue Finger infection Unspecified local infection of skin and subcutaneous tissue Laceration of right thumb with infection documented in this encounter Admitting Diagnoses Diagnosis [...] 07/13/23 at 1959, Until Faith 07/13/23 at 2052, Pain, Moderate Pain 4-6, Routine, Recovery (only) [...] Indication (Select all that apply): Bursitis, Routine 1724 (Given - Provid er: Cristal Meredith RN)1754 (Completed - Provider: Cristal Meredith RN) cefTRIAXone [...] 07/13/23 at 1959, Until Faith 07/13/23 at 2346, Hypotension, Routine, Recovery (only) documented in this [...] 06/24 documented in this encounter Care Teams Packer And Carry Out Relationship Specialty Start Date End Date Yesenia Morales NP [address] [place] [id number] PCP - General 06/14/21 documented as of this encounter
--- OUTSIDE RECORDS SUMMARY | 2024-08-01 21:57 | XMS_ITS | Encounter Summary ---
Author Organization [facility] Address [address] [place] [address] Care Team Providers Care Mold Filler Name Role Phone CarlineYesenia trejo MOHAN Primary Care Provider [phone] Reason for Visit * Auth/Cert Specialty Diagnoses / Procedures Referred By Sajan calix Referred To Contact Diagnoses Left hip pain Left hip pain [M25.552] Procedures IN HIP SCOPE/REMV BODY,SYNOVECTOMY IN HIP SCOPE/REMV BODY,PLASTY/RESECTN IN ARTHROSCOPY HIP W/FEMOROPLASTY ARTHROSCOPY, HIP, SURGICAL; W/SYNOVECTOMY CHONDROPLASTY, HIP, ARTHROSCOPIC ARTHROSCOPY HIP W/ FEMOROPLASTY Referral ID Status Reason Start Date Expiration Date Visits Re quested Visits Authorized [id number] 1 1 Encounter Details Date Type Department Care Team (Late st Contact Info) Description 07/19/2022 7:30 EST - 07/19/2022 9:40 EST Surgery [facility] Operating Room [address] [place] [address] Tyler Brown MD [address] [place] [address] ARTHROSCOPY, HIP, SURGICAL; W/SYNOVECTOMY [[id number] (CPT??)] Surgery Details Date/Time Status Location OR Service Patient Class Case Cl ass Case Type Trauma Case? 07/19/2022 0730 [place] [facility] [place] [facility] H - Elective Panel 1 Procedure [facility] Anes Op Region Wound Class Comments ARTHROSCOPY, HIP, SURGICAL; W/SYNOVECTOMY Left General Hip Class I/ Clean CHONDROPLASTY, HIP, ARTHROSCOPIC Left General Hip Class I/ Clean ARTHROSCOPY HIP W/ FEMOROPLASTY Left General Hip Class I/ Clean Surgeon Surgeon Role Service Panel Kimberlee Domínguez PA-C Assisting Orthopedics 1 Tyler Brown MD Primary Orthopedics 1 Special Needs PATRIZIA documented in this encounter Social History Tobacco Use Types Packs/Day Years Used Date Smoking Tobacco: Every Day Cigarettes 0.8 36.4 Started: 03/14/1988 Smokeless Tobacco: Never Comments:not there yet Alcohol Use Standard Drinks/Week Comments Not Currently 0 (1 standard drink = 0.6 oz pure alcohol) quit one year ago after pancreatitis Sex and Gender Information Value Date Recorded Sex Assigned at Male 07/02/2024 10:33 EST Legal Sex Male 17:50 EST Gender Identity Male 05/11/2021 15:39 EDT Sexual Orientation Not on file COVID-19 Exposure Response Date Recorded In the last 10 days, have yo u been in contact with someone who was confirmed or suspected to have Coronavirus/COVID-19? No / Unsure 07/19/2022 6:45 EST documented as of this encounter Last Filed Vital Signs Vital Sign Reading Time Taken Comments Blood Pressure 127/77 07/19/2022 0915 EST Pulse - - Temperature 36.3 ??C (97.3 ??F) 07/19/2022 0905 EST Respiratory Rate 13 07/19/2022 0915 EST Oxygen Saturation 97% 07/19/2022 0915 EST Inhaled Oxygen Concentration - - Weight 77.4 kg (170 lb 9.6 oz) 07/19/[address] Height 170.2 cm (5' 7.01) 07/19/2022 0700 EST Body Mass Index 26.71 07/19/2022 0700 EST documented in this encounter Functional Status * Because of a physical, mental, [...] this encounter Discharge Instructions * Discharge Instructions* Kristen Farias, LAVONNE - 07/19/2022 7:18 EST Operative Hip Arthroscopy Patient Information Packet Post-Operative Care Instructions In this packet, we have complied some information to make your recovery easier after surgery. If you have any questions, please don't hesitate to call the office and we will try our best to answer your questions are quickly and completely as possible. Medications You will be provided with specific prescriptions for medications at your pre- operative appointment.These medications may include specific pain medications, medications to relieve muscle spasm, anxiety, and insomnia, nausea, and medication to help prevent blood clots. In all cases, please take these medications according to the respective instructions. Post-Operative medications Medication Dosage Frequency Reason Oxycodone 5mg 1-2 tab per 3-4 hours Pain Robaxin 500mg 1-2 tabs per 6 hours Muscle spasm Ondansetron (Zofran) 4mg 1 per 6-8 hours Nausea Indomethacin 75mg Once per day, 10 days HO/DVT prevention Aspirin 325mg Daily DVT prevention Acetaminophen (Tylenol) 500mg 1-2 tabs per 8 hours DVT prevention Prescription pain Medication Take this medication with food and water. Please do not: Mix with alcohol or marijuana Drive while taking prescription pain medication Take any additional Tylenol if on Vicodin, Percocet, or [place] unless instructed to by a doctor No more than 3000mg (3g) of Tylenol per 24 hour period Post-Operative Care Instructions Crutch Use Given the nature of your procedure, you may weight-bear as tolerated. You may use crutches for assistance and wean from them with the assistance of the physical therapist as tolerated. Your physical therapist will assist you with these post-operative instructions and a doing weaning from the crutches after the above-noted period of time Hip Brace Is recommended that you wear a hip brace for 2 weeks You need to wear the brace while walking and up and active. You do not need to wear the brace when lying down, sleeping, laying on your stomach, showering (once off pain medication and confident in weight bearing restriction compliance) Range of Motion restrictions The postoperative hip brace will protect the labral repair and additional surgical procedures from the extremes of range of motion. aCTIVE fOOT/calf Pumps 10 up and down pumps of feet every hour while awake. Please perform these particularly when at rest, in a vehicle, or on an airplane Breathing Exercises You will be provided with an incentive spirometer after surgery. Please use this to perform 10 deep breaths every hour while awake. Icing AND eLEVATION Ice your hip, particularly in the first several weeks. Icing may be performed by applying ice in a 30 minutes on/off pattern. Always have a protective layer between your skin and the ice. Elevation of the leg aids in preventing swelling and with pain control. Dressing Changes / SHowering Leave bulky dressing in pace for at least 72 hours, do not shower for this period of time May remove after this period, leave tegaderm dressing in place May shower, do not scrub dressing/incision May remove tegaderm at one week postoperatively, shower, leave incision open to air Steri-strips will fall off on own; please do not scrub wound; no lotions/ointments Sutures Removable sutures or tammy If these were used to close your incision, they will be removed at 10-14 days from surgery during your first follow-up appointment. Please do not try to remove them on your own unless instructed to do so. physical therapy You will be provided with a physical therapy prescription. Please contact us if questions It is extremely important to remain complaint with the instructions. Physical therapy typically begins in the first few days after surgery. fOLLOW-UP aPPOINTMENTS You will be scheduled for a follow-up appointment prior to your surgery. If this has not been done,please contact the office to schedule your appointment. At this visit, your surgeon and the staff will ensure that the incision is healing well, will remove sutures if necessary, will review post-operative instructions and operative findings, and answer any and all questions that you may have. Questions / Problems Call our office or present to your primary doctor or an emergency room if the following occur: Fever (greater than 101.8 degrees F), chills, sweats Non-clear drainage from the incision and/or significant redness surrounding incision Calf swelling, redness, pain, chest pain, difficulty breathing Next dose can of NSAIDS can be taken at 1pm documented in this encounter Medications at Time of Discharge acetaminophen (TYLENOL) 500 mg tablet Take 1,000 mg by mouth as needed for Pain. amitriptyline (ELAVIL) 10 mg tablet 10 Tablets at bedtime. 1 atorvastatin (LIPITOR) 40 mg tablet Take 1 Tablet by mouth every evening. 1 blood glucose meter by not applicable route. 0 BLOOD SUGAR DIAGNOSTIC, DISC MISC by not applicable route. 0 cyclobenzaprine (FLEXERIL) 10 mg tablet TAKE TWO TABLETS BY MOUTH AT BEDTIME NEEDED FOR PAIN. USE AT BEDTIME DUE TO SEDATION 2 diphenhydrAMINE-mckinley taminophen 25-500 mg tablet Take 2 Tablets by mouth. Most nights 1 lancets by not applicable route. 0 melatonin 10 mg capsule Take 10 mg by mouth at bedtime. 1 metFORMIN (GLUCOPHAGE-XR) 500 mg ER tablet Take 2 Tablets by mouth 2 times daily. 1 terbinafine HCL (LAMISIL) 250 mg tablet daily. 1 aspirin 325 mg tablet AFTER indomethacin ss complete, take 1 tab aspirin daily for 14 days. 14 Tablet 2 10/27/19 23 empagliflozin (JARDIANCE) 10 mg tablet Take 1 Tablet by mouth daily. 10/19/19 24 ergocalciferol, vitamin D2, (VITAMIN D ORAL) Take by mouth. weekly 08/28/19 24 indomethacin (INDOCIN) 25 mg capsule Take 3 Capsules by mouth daily for 10 days. Take 75 mg once daily for 10 days after surgery 30 Capsule 2 07/29/19 23 methocarbamoL (ROBAXIN) 500 mg tablet Take 1 Tablet by mouth 4 times daily as needed for Pain or Muscle Spasms. 30 Tablet 2 12/21/19 23 ondansetron (ZOFRAN-ODT) 4 mg disintegrating tablet Take 1 Tablet by mouth every 8 hours as needed for Nausea. 15 Tablet 2 12/21/19 23 oxyCODONE (ROXICODONE) 5 mg immediate release tablet Take 1 Tablet by mouth every 6 hours as needed for Pain. Daily Max: 20 mg 9 Tablet 2 12/21/19 23 pregabalin (LYRICA) 200 mg capsule Generally BID 1 10/19/19 24 documented as of this encounter Ordered Prescriptions Prescription Sig Dispense Quantity Refills Last Filled Start Date End Date ondansetron (ZOFRAN-ODT) 4 mg disintegrating tablet Take 1 Tablet by mouth every 8 hours as needed for Nausea. 15 Tablet 2 12/21/19 23 oxyCODONE (ROXICODONE) 5 mg immediate release tablet Take 1 Tablet by mouth every 6 hours as needed for Pain. Daily Max: 20 mg 9 Tablet 2 12/21/19 23 indomethacin (INDOCIN) 25 mg capsule Take 3 Capsules by mouth daily for 10 days. Take 75 mg once daily for 10 days after surgery 30 Capsule 2 07/29/19 23 aspirin 325 mg tablet AFTER indomethacin ss complete, take 1 tab aspirin daily for 14 days. 14 Tablet 2 10/27/19 23 methocarbamoL (ROBAXIN) 500 mg tablet Take 1 Tablet by mouth 4 times daily as needed for Pain or Muscle Spasms. 30 Tablet 2 12/21/19 23 documented in this encounter Discharge Disposition Disposition Code Departure Means Destination Home or Self [facility] documented in this encounter H&P Notes * Tyler Brown MD - 07/19/2022 0717 EST The preoperative history and physical which was performed within 30 days of this procedure has been reviewed and the clinically appropriate elements of the physical examination have been repeated. There are no changes to the documented history and physical or if so such changes are documented below Tyler Brown MD 07/19/2022 7:17 Source Note - Kimberlee Domínguez PA-C - 07/04/2022 15:45 EST Diogo presents today for a pre-operative visit. He is scheduled for a left hip scope on 07/19 with [facility]. No PT referral. PROBLEM: Left hip pain, preoperative visit SUBJECTIVE: Diogo Martinez is a 51 y.o. male who is here today for follow up and a preoperative examination. He has had left hip pain, for many years. He has had a recent visit with Dr. Brown, had elected proceed with left hip arthroscopy. He has had prior knee surgery, with no significant problems. Had general anesthesia for this. He does have some chronic back pain, as well as mild hyperlipidemia, t reated with atorvastatin. He does have diabetes, maintained on 500 mg of metformin. Most recent A1cat 6.4, 3 weeks ago. He has a history of alcohol use disorder, quit in 2019. He is a smoker. The past medical, family and social history have been reviewed in the patient chart. OBJECTIVE: Pulse 92 SpO2 95% On physical exam, the patient is found to be a pleasant and cooperative male who appears to be alert and oriented x 3. He is well-developed, well-nourished and in no significant distress. Breathing is unlabored. Skin is warm, pink and dry to inspection and palpation. Neurovascularly intact with good capillary refill. Upon inspection, there are no obvious areas of swelling, ecchymosis, joint deformity or atrophy. General Exam: GENERAL APPEARANCE: no acute distress, pleasant, cooperative. NECK: supple, no lymphadenopathy. CHEST: normal shape and expansion. HEART: regular rate and rhythm, no murmurs. LUNGS: clear to auscultation, unlabored. ASSESSMENT: Left hip pain, preoperative examination. PLAN: Physical therapy referral placed, to [facility] and [place], [place]. A brace order was faxed to the [facility], for the hip brace postoperatively. He has had general anesthesia before with no significant complications. He was aware that with some of his chronic back pain, some of his pain may not completely resolve with the surgery. Preoperative and postoperative restrictions and expectations were discussed and he was provided with a printed postoperative plan for physical therapy. Dr. Brown was the attending physician available in the clinic today if needed. A consultation was not required. This note was prepared using voice recognition software and the EMR. There may be inadvertent errors and omissions. SYD Anthony 07/04/2022 documented in this encounter OR Notes * OR Surgeon - Tyler Brown MD - 07/19/2022 0908 EST OPERATIVE REPORT PATIENT NAME: Diogo Martinez DATE OF : 72 SURGEON: Kelly Brown MD CONTINUITY PERSON: Kimberlee Domínguez DATE OF SURGERY: 07/19/22 PREOPERATIVE DIAGNOSIS: 1. Left hip femoral acetabular impingement 2. Left hip labral tear 3. Left hip chondromalacia 4. Leftt hip synovitis POSTOPERATIVE DIAGNOSIS: 1. Left hip femoral acetabular impingement 2. Left hip labral tear 3. Left hip chondromalacia at the chondral labral junction associated with labral tear 4. Left hip diffuse grade I chondromalacia in the parafoveal weightbearing area of the femoral head 5. Left hip synovitis 6. Left hip ligamentum teres fraying PROCEDURES PERFORMED: 1. Left hip labral debridement 2. Left hip removal of bony loose body 3. Left hip arthroscopic femoral head neck osteochondral plasty to resect cam lesion 4. Left hip acetabular chondroplasty at the regional labral tear 5. Left hip partial synovectomy ANESTHESIA: General IVF: Please see anesthesia report EBL: Minimal TRACTION TIME: 36 Minutes SPECIMENS: None DRAINS: None IMPLANTS: None DISPOSITION: Stable to PACU INDICATIONS FOR PROCEDURE: The patient is a pleasant 51 year-old who presents with a chief complaint of chronic left hip pain.This is failed to improve with prolonged nonoperative management. They were diagnosed with clinicalfemoral acetabular impingement as well as a labral tear. They were offered surgery and elected to proceed. The risks and benefits of the procedure were discussed in detail with the patient who voicedtheir understanding and elected to proceed with surgery. Written informed consent was obtained. PROCEDURE IN DETAIL: The patient was met in the preoperative holding area where the consent was again reviewed. They voiced understanding elected to proceed. The left lower extremity was marked with ink. They brought to the operating room where general anesthesia was induced without complication. They are positioned kelly hip arthroscopy table. The operative side arm was brought over the chest and well-padded to avoidany pressure points or tension on the shoulder. The nonoperative side arm was rested in a well-padded arm board. A well-padded perineal post was placed and bilateral feet wrapped in cotton padding and foam boots in place securely in the traction boots. Then, the operative leg was abductor and traction was applied. It was then a deducted to distract femoral head from the acetabulum. This was confirmed with a vacuum sign on intraoperative fluoroscopy. Landmarks were drawn in the operative hip. The operative hip was prepped and draped in the usual standard sterile fashion. An orthopedic timeout was conducted to confirm correct patient name, operative site and procedure be performed. Antibiotics were infused. We began the procedure by establishing a standard anterolateral arthroscopic portal. This was performed under intraoperative fluoroscopic guidance. The skin was incised with an 11 blade scalpel just anterior and distal to the tip of the greater trochanter and a spinal needle was advanced into the joint. Insufflation of approximately 20 mL of sterile saline with good return confirmed the intra-articular position of the needle. Next, a nitinol wire was passed through the spinal needle and a cannula was passed over the guidewire and into the hip joint. The arthroscope was placed into the joint using the anterior lateral portal. Next, the anterior triangular interval was identified under dry arthroscopy. Using intraoperative fluoroscopic guidance as well as arthroscopic visualization, the mid anterior portal was created in asimilar fashion. The arthroscope was then placed through the mid anterior portal to visualize the en try point of the anterior lateral portal compartment was not the labrum. Arthroscopic fluid was then turned on. A parallel capsulotomy was performed with the [place] blade approximately 1 cm distal labrum to connect the mid anterior and anterolateral arthroscopic portals. Care was taken to avoid cutting the iliofemoral ligament. OPERATIVE FINDINGS: There is a very complex degenerative appearing labral tear with multiple areas of displacement. There is a mild cam deformity. There is no significant pincer deformity, however there was a large, 1.5to 2 cm size loose bony body just superior to the labrum within the capsular tissue in this region.There is grade 2-3 changes to the surface of the acetabulum with several areas of loose cartilage delamination. There was grade 1-2 changes to the femoral head. The hip was evaluated in the interval between the proximal capsule and labrum was developed using mechanical shaver and radiofrequency probe. This exposed the acetabular rim from approximately the 11:00 to 3 o'clock position. No significant pincer lesion was noted, however there was a large loose body. This was removed in entirety. ACETABULAR CHONDROPLASTY: Regarding the above-noted chondral wear, a combination mechanical shaver and radiofrequency wand were utilized to perform an acetabular chondroplasty back to a stable margin. LABRAL DEBRIDEMENT: Labral debridement was performed using a combination of a radiofrequency probe and a mechanical shaver. SYNOVECTOMY: Using the radiofrequency device and mechanical shaver, partial synovectomy was performed to remove the regions of inflamed tissue throughout the hip joint condyloid fossa. FEMORAL NECK OSTEOPLASTY: Dynamic evaluation of the hip was performed. This identified the location of the cam deformity in the area of impingement with the labrum. With the hip out of traction, an arthroscopic bur was utilized to perform a femoral neck osteochondroplasty. Resection was carried out from the 12:00 to 6 o'clock position until there was a smooth concavity and reestablishment of the normal head neck offset. The lateral epiphyseal vessels were identified and protected throughout the resection. Attention was then turned to wound closure. The wounds were thoroughly irrigated. They are closed in layered fashion with 2-0 Vicryl suture and 3-0 nylon stitches. Sterile dressings were applied. Thepatient was woke from anesthesia and transferred back in stable condition. All sponge and needle cou nts were correct at the end the case. A skilled international first officer was necessary to complete the procedure in a technically safe and efficient manner. POSTOPERATIVE PLAN: The patient will be weightbearing as tolerated on the affected extremity. They were provided with all necessary postoperative instructions, follow-up information, and medications. It is our expectation that we will see the patient back in the office in 10 to 14 days, or earlier if there are any concerns. * Preprocedure Instructions - Elidia Oseguera RN - 07/14/2022 7061 EST Diogo Martinez has been instructed as follows regarding medication administration for the day of the scheduled procedure. Date of Surgery: 07/19/22 Instructions for Taking Medications Day of Surgery Medication Sig Last Dose Hold DOS Take DOS acetaminophen (TYLENOL) 500 mg tablet Take 1,000 mg by mouth as needed for Pain. x amitriptyline (ELAVIL) 10 mg tablet 100 mg at bedtime. aspirin 325 mg tablet Take 325 mg by mouth daily. Patient not taking: Reported on 07/04/2022 x atorvastatin (LIPITOR) 40 mg tablet Take 40 mg by mouth every evening. blood glucose meter by not applicable route. BLOOD SUGAR DIAGNOSTIC, DISC MISC by not applicable route. celecoxib (CELEBREX) 100 mg capsule Take 100 mg by mouth daily. Last dose 1220/ x cyclobenzaprine (FLEXERIL) 10 mg tablet Take 10 mg by mouth at bedtime. diclofenac (CATAFLAM) 50 mg tablet TAKE ONE TABLET BY MOUTH TWO TIMES A DAY NEEDED FOR PAIN TAKEWITH FOOD Patient not taking: No sig reported diphenhydrAMINE-acetaminophen 25-500 mg tablet Take 2 Tablets by mouth. Most nights empagliflozin (JARDIANCE) 10 mg tablet Take 10 mg by mouth daily. last dose 12/ ergocalciferol, vitamin D2, (VITAMIN D ORAL) Take by mouth. weekly lancets by not applicable route. LOW-DOSE ASPIRIN ORAL Take 81 mg by mouth daily. x melatonin 10 mg capsule Take 10 mg by mouth at bedtime. Patient not taking: Reported on 05/13/2022 metFORMIN (GLUCOPHAGE-XR) 500 mg ER tablet Take 1,000 mg by mouth 2 times daily. x methocarbamoL (ROBAXIN) 500 mg tablet Take 500 mg by mouth if needed. 1-2 tabs up to 2 times a day Patient not taking: No sig reported pregabalin (LYRICA) 200 mg capsule Generally BID x terbinafine HCL (LAMISIL) 250 mg tablet daily. x documented in this encounter Miscellaneous Notes * Brief Op Note - Tyler Brown MD - 07/19/2022 0908 EST Date: 07/19/2022 [place] [facility] [place]: Diogo Martinez, : 1970, Diagnosis Pre-Op Diagnosis Codes: * Left hip pain [M25.552] Post-op Diagnosis * Left hip pain [M25.552] Procedures * ARTHROSCOPY, HIP, SURGICAL; W/SYNOVECTOMY * CHONDROPLASTY, HIP, ARTHROSCOPIC * ARTHROSCOPY HIP W/ FEMOROPLASTY Surgeons * Tyler Brown MD - Primary * Kimberlee Domínguez PA-C - Assisting Procedure Summary Anesthesia: General ASA: III Estimated Blood Loss: No Blood Loss Documented Total IV Fluids: as per anesthesia report mL LDAs: Peripheral IV 07/19/22 0710 Left;Posterior Hand (Active) Wound 07/19/22 Incision Left;Lateral Hip (Active) [REMOVED] Non-Surgical Airway (Removed) Staff: Neonatal Specialist: Syed Partida RN Scrub Person: Yoni Cook Indications: Diogo Martinez is an 51 y.o. male who is having surgery for Left hip pain [M25.552] Findings: as per operative dictation Complications: None; patient tolerated the procedure well. Disposition: PACU - hemodynamically stable. Condition: stable Specimens Collected: No specimens collected during this procedure. Attending Attestation: I was present and scrubbed for the entire procedure Tyler Brown MD documented in this encounter Plan of Treatment Not on file documented as of this encounter Procedures Procedure Name Priority Date/Time Associated Diagnosis Comments ECG REPORT - SCANNED 07/21/2022 13:42 EST POCT GLUCOSE, INTERFACED Routine 07/19/2022 10:11 EST ARTHROSCOPY HIP W/ FEMOROPLASTY 07/19/2022 7:23 EST Left hip pain Special Needs PATRIZIA CHONDROPLASTY, HIP, ARTHROSCOPIC 07/19/2022 7:23 EST Left hip pain Special Needs PATRIZIA ARTHROSCOPY, HIP, SURGICAL; W/SYNOVECTOMY 07/19/2022 7:23 EST Left hip pain Special Needs PATRIZIA POCT GLUCOSE, INTERFACED Routine 07/19/2022 7:19 EST documented in this encounter Results * ECG REPORT - SCANNED (07/21/2022 13:42 EST) 07/21/2022 13:4 2 EST us Scan 2 Machine Cell Tuber PROCEDURE/MINOR SURGICAL OR DERABLES Final Result * (ABNORMAL) POCT GLUCOSE, INTERFACED (07/19/2022 10:11 EST) Glucose, POC 183(H) 70 - 100 mg/dL 07/19/2022 10:12 EST [facility] HN LAB POC COMMENT (GLUCOSE) Test Performed in [facility] 07/19/2022 10:12 EST [facility] Blood CAPILLARY BLOOD / Unknown 07/19/2022 10:11 EST 07/19/2022 10:12 EST Tyler Brown MD POINT OF CARE TEST ORDERABLES Fi nal Result Performing Organization Address [facility] [facility] Co de Phone Number [facility] [address] [place] [address] * (ABNORMAL) POCT GLUCOSE, INTERFACED (07/19/2022 7:19 EST) Glucose, POC 178(H) 70 - 100 mg/dL 07/19/2022 7:21 EST [facility] LAB POC COMMENT (GLUCOSE) Test Performed in [facility] 07/19/2022 7:21 EST [facility] Blood CAPILLARY BLOOD / Unknown 07/19/2022 7:19 EST 07/19/2022 7:21 EST Tyler Brown MD POINT OF CARE TEST ORDERABLES Fi nal Result Performing Organization Address [facility] Co de Phone Number [facility] [address] [place] [address] documented in this encounter Visit Diagnoses Diagnosis Left hip pain- Primary Pain in joint, pelvic region and thigh Left hip pain Pain in joint, pelvic region and thigh documented in this encounter Admitting Diagnoses Diagnosis Left hip pain Pain in joint, pelvic region and thigh documented in this encounter Administered Medications Inactive Administered Medications - up to 3 most recent administrations Medication Order MAR Action Action Date Dose Rate Site acetaminophen (TYLENOL) tablet 975 mg 975 mg (rounded from 1,000 mg), oral, PRE-OP ONCE, 1 dose, On Mon07/19/22 at 0700, Routine, Preprocedure Given 07/19/2022 6:43 EST 975 mg albuterol (ACCUNEB) nebulizer solution 2.5 mg 2.5 mg, nebulization, EVERY 1 HOUR PRN, Starting on Mon07/19/22 at 0905, Until Mon07/19/22 at 1250, Wheezing, Routine, Recovery (only) bupivacaine HCl 0.5 % (5 mg/mL) injection PRN, Starting on Mon07/19/22 at 0855, Until Mon07/19/22 at 0903, Routine, Intraprocedure Given 07/19/2022 8:55 EST 10 mL Left H ip diazePAM (VALIUM) tablet 5 mg 5 mg, oral, PRE-OP ONCE, 1 dose, On Mon07/19/22 at 0700, Routine, Preprocedure Given 07/19/2022 6:43 EST 5 mg diphenhydrAMINE (BENADRYL) injection 6.25 mg 6.25 mg, intravenous, ONCE PRN, 1 dose, Starting on Mon07/19/22 at 0905, Until Mon07/19/22 at 1250, Nausea/Vomiting, Routine, Recovery (only) fentaNYL citrate (PF) injection 50 mcg 50 mcg, intravenous, EVERY 5 MIN PRN, Starting on Mon07/19/22 at 0905, Until Mon07/19/22 at 1250, Pain, Moderate-Severe Pain (Scale 4-10), Routine, Recovery (only) Given 07/19/2022 10:05 EST 50 mcg glycopyrrolate (ROBINUL) injection 0.2 mg 0.2 mg, intravenous, EVERY 3 MINUTES PRN, Starting on Mon07/19/22 at 0905, Until Mon07/19/22 at 1250, BRADYCARDIA, Routine, Recovery (only) HYDROmorphone (PF) (DILAUDID) 0.5 mg/0.5 mL syringe 0.5 mg 0.5 mg, intravenous, EVERY 5 MIN PRN, Starting on Mon07/19/22 at 0905, Until Mon07/19/22 at 1250, Pain, Moderate-Severe Pain (Scale 4-10), Routine, Recovery (only) labetalol (TRANDATE) injection 5 mg 5 mg, intravenous, EVERY 3 MINUTES PRN, Starting on Mon07/19/22 at 0905, Until Mon07/19/22 at 1250, High Blood Pressure, SBP greater than 180 mmHg, Routine, Recovery (only) lactated ringers (LR) infusion 25 mL/hr, intravenous, CONTINUOUS, Starting on Mon07/19/22 at 0700, Until Mon07/19/22 at 1250, Routine, Preprocedure New Bag 07/19/2022 7:10 EST 25 mL/hr 25 mL/hr IV lactated ringers (LR) infusion at 100 mL/hr, 1,000 mL, intravenous, PACU CONTINUOUS, Starting on Mon07/19/22 at 0930, Until Mon07/19/22 at 1250, Routine, Recovery (only) New Bag 07/19/2022 9:10 EST 100 mL 100 mL/hr lactated Ringers 3,000 mL with EPINEPHrine (ADRENALIN) 1 mL PRN, Starting on Mon07/19/22 at 0855, Until Mon07/19/22 at 0903, Routine, Intraprocedure Given 07/19/2022 8:55 EST 6,000 mL lactated ringers BOLUS 500 mL 500 mL, intravenous, ONCE PRN, 1 dose, Starting on Mon07/19/22 at 0905, Until Mon07/19/22 at 1250, Other, SBP below 100 or MAP below 60, Routine, Recovery (only) meperidine (PF) (DEMEROL) injection 12.5 mg 12.5 mg, intravenous, EVERY 5 MIN PRN, 2 doses, Starting on Mon07/19/22 at 0905, Until Mon07/19/22 at 1250, SHIVERING, Routine, Recovery (only) methocarbamoL (ROBAXIN) tablet 1,000 mg 1,000 mg, oral, Once (Time Specified), 1 dose, On Mon07/19/22 at 0700, Routine, Preprocedure Given 07/19/2022 6:45 EST 1,000 mg ondansetron (PF) (ZOFRAN) injection 4 mg 4 mg, intravenous, ONCE PRN, 1 dose, Starting on Mon07/19/22 at 0905, Until Mon07/19/22 at 1250, Nausea, Routine, Recovery (only) oxyCODONE (ROXICODONE) immediate release tablet 5 mg 5 mg, oral, EVERY 30 MINUTES PRN, 2 doses, Starting on Mon07/19/22 at 0905, Until Mon07/19/22 at 1250, Pain, Routine, Recovery (only) Given 07/19/2022 10:03 EST 5 mg documented in this encounter Discontinued Medications Medication Sig Discontinue Reason Start Date End Da te ibuprofen (MOTRIN) 200 mg tablet 4 tab(s) orally 3 times a day PRN Alternate therapy 07/13/2022 aspirin 325 mg tablet Take 325 mg by mouth daily. Reorder 02/25/2021 07/19/2022 methocarbamoL (ROBAXIN) 500 mg tablet Take 500 mg by mouth if needed. 1-2 tabs up to 2 times a day Reorder 07/19/2022 LOW-DOSE ASPIRIN ORAL Take 81 mg by mouth daily. Stop Taking at Discharge 07/19/2022 diclofenac (CATAFLAM) 50 mg tablet TAKE ONE TABLET BY MOUTH TWO TIMES A DAY NEEDED FOR PAIN TAKE WITH FOOD Stop Taking at Discharge 02/04/2022 07/19/2022 cyclobenzaprine (FLEXERIL) 10 mg tablet Take 10 mg by mouth at bedtime. Stop Taking at Discharge 07/19/2022 celecoxib (CELEBREX) 100 mg capsule Take 100 mg by mouth daily. Stop Taking at Discharge 07/19/2022 documented as of this encounter Active and Recently Administered Medications Times are shown in EST. Scheduled Medication Order 07/17/2022 07/18/2022 07/19/2022 acetaminophen (OFIRMEV) IV solution 1,000 mg 1,000 mg, intravenous, NOW X1, 1 dose, On Mon07/19/22 at 0930, Routine, Recovery (only) 0930 (Canceled Entry - Provider: Batch Job User Admin - Comment: Automatically canceled at discontinue of medication order) acetaminophen (TYLENOL) tablet 975 mg (COMPLETED) 975 mg (rounded from 1,000 mg), oral, PRE-OP ONCE, 1 dose, On Mon07/19/22 at 0700, Routine, Preprocedure 0643 (Given - Provid er: Mikhail Powers RN) ceFAZolin in dextrose 5 % (ANCEF) IVPB DUPLEX 2,000 mg (COMPLETED) 2,000 mg, intravenous, Administer over 30 Minutes, PRE-OP ONCE, 1 dose, On Mon07/19/22 at 0700, Type of Therapy: Prophylaxis, Suspected Indication (Select all that apply): Surgical prophylaxis, Routine, Preprocedure 0721 (Hold - Provide r: Mikhail Powers RN - Reason: Other - Comment: Will be infused in OR by anesthesia)0759 (Given - Provider: Baylee Gibson MD) diazePAM (VALIUM) tablet 5 mg (COMPLETED) 5 mg, oral, PRE-OP ONCE, 1 dose, On Mon07/19/22 at 0700, Routine, Preprocedure 0643 (Given - Provid er: Mikhail Powers RN) methocarbamoL (ROBAXIN) tablet 1,000 mg (CANCELED) 1,000 mg, oral, Once (Time Specified), 1 dose, On Mon07/19/22 at 0700, Routine, Preprocedure 0645 (Given - Provid er: Mikhail Powers RN) methocarbamoL (ROBAXIN) tablet 1,000 mg 1,000 mg, oral, Once (Time Specified), 1 dose, On Mon07/19/22 at 0700, Routine 0700 (Canceled Entry - Provider: Batch Job User Admin - Comment: Automatically canceled at discontinue of medication order) Continuous Medication Order 07/17/2022 07/18/2022 07/19/2022 lactated ringers (LR) infusion 25 mL/hr, intravenous, CONTINUOUS, Starting on Mon07/19/22 at 0700, Until Mon07/19/22 at 1250, Routine, Preprocedure 0710 (New Bag - Prov ider: Mikhail Powers RN) lactated ringers (LR) infusion at 100 mL/hr, 1,000 mL, intravenous, PACU CONTINUOUS, Starting on Mon07/19/22 at 0930, Until Mon07/19/22 at 1250, Routine, Recovery (only) 0910 (New Bag - Prov ider: Kristen Farias RN) PRN Medication Order 07/17/2022 07/18/2022 07/19/2022 albuterol (ACCUNEB) nebulizer solution 2.5 mg 2.5 mg, nebulization, EVERY 1 HOUR PRN, Starting on Mon07/19/22 at 0905, Until Mon07/19/22 at 1250, Wheezing, Routine, Recovery (only) bupivacaine HCl 0.5 % (5 mg/mL) injection (CANCELED) PRN, Starting on Mon07/19/22 at 0855, Until Mon07/19/22 at 0903, Routine, Intraprocedure 0855 (Given - Provid er: Tyler Brown MD) diphenhydrAMINE (BENADRYL) injection 6.25 mg 6.25 mg, intravenous, ONCE PRN, 1 dose, Starting on Mon07/19/22 at 0905, Until Mon07/19/22 at 1250, Nausea/Vomiting, Routine, Recovery (only) fentaNYL citrate (PF) injection 50 mcg 50 mcg, intravenous, EVERY 5 MIN PRN, Starting on Mon07/19/22 at 0905, Until Mon07/19/22 at 1250, Pain, Moderate-Severe Pain (Scale 4-10), Routine, Recovery (only) 1005 (Given - Provid er: Kristen Farias RN) glycopyrrolate (ROBINUL) injection 0.2 mg 0.2 mg, intravenous, EVERY 3 MINUTES PRN, Starting on Mon07/19/22 at 0905, Until Mon07/19/22 at 1250, BRADYCARDIA, Routine, Recovery (only) HYDROmorphone (PF) (DILAUDID) 0.5 mg/0.5 mL syringe 0.5 mg 0.5 mg, intravenous, EVERY 5 MIN PRN, Starting on Mon07/19/22 at 0905, Until Mon07/19/22 at 1250, Pain, Moderate-Severe Pain (Scale 4-10), Routine, Recovery (only) labetalol (TRANDATE) injection 5 mg 5 mg, intravenous, EVERY 3 MINUTES PRN, Starting on Mon07/19/22 at 0905, Until Mon07/19/22 at 1250, High Blood Pressure, SBP greater than 180 mmHg, Routine, Recovery (only) lactated Ringers 3,000 mL with EPINEPHrine (ADRENALIN) 1 mL (CANCELED) PRN, Starting on Mon07/19/22 at 0855, Until Mon07/19/22 at 0903, Routine, Intraprocedure 0855 (Given - Provid er: Tyler Brown MD) lactated ringers BOLUS 500 mL 500 mL, intravenous, ONCE PRN, 1 dose, Starting on Mon07/19/22 at 0905, Until Mon07/19/22 at 1250, Other, SBP below 100 or MAP below 60, Routine, Recovery (only) meperidine (PF) (DEMEROL) injection 12.5 mg 12.5 mg, intravenous, EVERY 5 MIN PRN, 2 doses, Starting on Mon07/19/22 at 0905, Until Mon07/19/22 at 1250, SHIVERING, Routine, Recovery (only) ondansetron (PF) (ZOFRAN) injection 4 mg 4 mg, intravenous, ONCE PRN, 1 dose, Starting on Mon07/19/22 at 0905, Until Mon07/19/22 at 1250, Nausea, Routine, Recovery (only) oxyCODONE (ROXICODONE) immediate release tablet 5 mg 5 mg, oral, EVERY 30 MINUTES PRN, 2 doses, Starting on Mon07/19/22 at 0905, Until Mon07/19/22 at 1250, Pain, Routine, Recovery (only) 1003 (Given - Provid er: Kristen Farias RN) documented in this encounter Orders Medications Ordered That Ki ht Not Have Been Administered Count Last Ordered Date First Ordered Date acetaminophen (OFIRMEV) IV s olution 1,000 mg 1 07/19/2022 albuterol (ACCUNEB) nebulize r solution 2.5 mg 1 07/19/2022 ceFAZolin in dextrose 5 % (A NCEF) IVPB DUPLEX 2,000 mg 1 07/19/2022 chlorhexidine gluconate 2 % cloth 1 Each 1 07/19/2022 diphenhydrAMINE (BENADRYL) i njection 6.25 mg 1 07/19/2022 glycopyrrolate (ROBINUL) injection 0.2 mg 1 07/19/2022 HYDROmorphone (PF) (DILAUDID ) 0.5 mg/0.5 mL syringe 0.5 mg 1 07/19/2022 labetalol (TRANDATE) injection 5 mg 1 07/19 lactated ringers BOLUS 500 mL 1 07/19/2022 lidocaine (PF) 10 mg/mL (1 % ) injection 2 mg 1 07/19/2022 meperidine (PF) (DEMEROL) in jection 12.5 mg 1 07/19/2022 methocarbamoL (ROBAXIN) tablet 1,000 mg 1 1 09/19/2021 ondansetron (PF) (ZOFRAN) injection 4 mg 1 07/19/2022 Discharge Count Last Ordered Date First Orde red Date DISCHARGE PATIENT 1 07/19/2022 documented in this encounter Care Teams Mold Filler Relationship Specialty Start Date End Date Yesenia Morales NP [address] [place] [id number] PCP - General 06/14/21 documented as of this encounter
--- OUTSIDE RECORDS SUMMARY | 2024-08-01 21:57 | XMS_ITS | Encounter Summary ---
Author Organization [facility] Address [address] [place] [address] Care Team Providers Care Cellular Biologist Name Role Phone CarlineYesenia trejo MOHAN Primary Care Provider [phone] Reason for Visit * Reason Comments Follow-up Encounter Details Date Type Department Care Team (Late st Contact Info) Description 10/10/2022 11:45 EDT Office Visit [facility] [address] [place], [place] [id number] Kimberlee Domínguez PA-C [address] [place] [address] Left hip pain (Primary Dx) Social History Tobacco Use Types [...] suspected to have Coronavirus/COVID-19? No / Unsure 10/10/2022 11:42 EDT documented as of this encounter Functional Status * Because of [...] documented in this encounter Progress Notes * Kimberlee oDmínguez PA-C - 10/10/2022 1145 EDT S/P left hip arthroscopy, with debridement, chondroplasty, synovectomy, and femoroplasty completed on 07/19/22 by ANDREE. LV 08/29/22 TORIBIOB Progressing with PT Slightly limited d/t tendinitis Work note, remain out of work until F/U Saw 10/07 for right hip pain left hip is coming along quite nicely and he is pleased with the outcome. Still has soreness and discomfort but much better than it was prior to surgery. Today: Reevaluation The patient presents today approximately 3-month status post left hip arthroscopy, with debridement, chondroplasty, synovectomy, and femoroplasty. He is doing well at this point, feels better than hedid prior to surgery. He is dealing with some tendinitis around the hip. Continues to make progresswith physical therapy. Has been out sugaring. Wants to go back to work tomorrow. Wondering about his right hip. Wondering if Dr. Brown could see him for arthroscopy for this, or ifhe needs to consider a joint replacement. A 10-point review of systems has been reviewed and all are negative unless noted above. Past Medical History: Diagnosis Date ??? Back pain Social History Tobacco Use ??? Smoking status: Every Day Packs/day: 0.75 Types: Cigarettes Start date: 03/14/1988 ??? Smokeless tobacco: Never ??? Tobacco comments: not there yet Substance Use Topics ??? Alcohol use: Not Currently Comment: quit one year ago after pancreatitis Past Surgical History: Procedure Laterality Date ??? HIP ARTHROSCOPY Left 07/19/2022 ??? KNEE SURGERY Left repair ??? LIPOMA RESECTION 04/10/2021 back of skull ??? NASAL SEPTUM SURGERY as teen ager Allergies Allergen Reactions ??? Cortisone Insomnia Steroids ??? Erythromycin Nausea And Vomiting Medications Prior to Today's Visit Medication Sig ??? acetaminophen (TYLENOL) 500 mg tablet Take 1,000 mg by mouth as needed for Pain. ??? amitriptyline (ELAVIL) 10 mg tablet 100 mg at bedtime. ??? aspirin 325 mg tablet AFTER indomethacin ss complete, take 1 tab aspirin daily for 14 days. ??? atorvastatin (LIPITOR) 40 mg tablet Take 40 mg by mouth every evening. ??? blood glucose meter by not applicable route. ??? BLOOD SUGAR DIAGNOSTIC, DISC MISC by not applicable route. ??? celecoxib (CELEBREX) 200 mg capsule TAKE ONE CAPSULE BY MOUTH EVERY DAY FOR PAIN ??? cyclobenzaprine (FLEXERIL) 10 mg tablet TAKE TWO TABLETS BY MOUTH AT BEDTIME NEEDED FOR PAIN. USE AT BEDTIME DUE TO SEDATION ??? diphenhydrAMINE-acetaminophen 25-500 mg tablet Take 2 Tablets by mouth. Most nights ??? empagliflozin (JARDIANCE) 10 mg tablet Take 10 mg by mouth daily. ??? ergocalciferol, vitamin D2, (VITAMIN D ORAL) Take by mouth. weekly ??? lancets by not applicable route. ??? melatonin 10 mg capsule Take 10 mg by mouth at bedtime. ??? metFORMIN (GLUCOPHAGE-XR) 500 mg ER tablet Take 1,000 mg by mouth 2 times daily. ??? methocarbamoL (ROBAXIN) 500 mg tablet Take 1 Tablet by mouth 4 times daily as needed for Pain or Muscle Spasms. (Patient not taking: Reported on 08/29/2022) ??? ondansetron (ZOFRAN-ODT) 4 mg disintegrating tablet Take 1 Tablet by mouth every 8 hours as needed for Nausea. (Patient not taking: No sig reported) ??? oxyCODONE (ROXICODONE) 5 mg immediate release tablet Take 1 Tablet by mouth every 6 hours as needed for Pain. Daily Max: 20 mg (Patient not taking: No sig reported) ??? pregabalin (LYRICA) 200 mg capsule Generally BID (Patient not taking: Reported on 10/07/2022) ??? terbinafine HCL (LAMISIL) 250 mg tablet daily. No facility-administered medications prior to visit. OBJECTIVE: There were no vitals taken for this visit. On physical exam, the patient is found to be an alert and cooperative male who appears to be alert and oriented x 3. He is well-developed, well-nourished and in no significant distress. Breathing is unlabored. Skin is warm pink and dry to inspection and palpation. Mild tenderness palpation over the iliotibial band as well as the iliopsoas. Distally neurovascularintact throughout. Full strength hip flexion, extension, AB and adduction. No pain with rotation. ASSESSMENT: 3 months status post left hip arthroscopy PLAN: Overall, the patient continues to progress with physical therapy, and wants to go back to work tomorrow. He is doing very well and is doing better than prior to surgery. We will have him see Dr. Palma to consider total hip replacement discussion with regard to the right hip. Kimberlee Domínguez PA-C 10/10/2022 documented in this encounter Plan of Treatment Not on file documented as of this encounter Visit Diagnoses Diagnosis Left hip pain- Primary Pain in joint, pelvic region and thigh documented in this encounter Care Teams Cellular Biologist Relationship Specialty Start Date End Date Yesenia Morales NP [address] [place] [address] PCP - General 06/14/21 documented as of this encounter
--- OUTSIDE RECORDS SUMMARY | 2024-08-01 21:57 | XMS_ITS | Encounter Summary ---
Author Organization [facility] Address [address] [place] [address] Care Team Providers Care Hourly Caregiver Name Role Phone CarlineYesenia trejo MOHAN Primary Care Provider [phone] Reason for Visit * Auth/Cert Specialty Diagnoses / Procedures Referred By Sajan calix Referred To Contact Diagnoses Left hip pain Left hip pain [M25.552] Procedures ME HIP SCOPE/REMV BODY,SYNOVECTOMY ME HIP SCOPE/REMV BODY,PLASTY/RESECTN ME ARTHROSCOPY HIP W/FEMOROPLASTY ARTHROSCOPY, HIP, SURGICAL; W/SYNOVECTOMY CHONDROPLASTY, HIP, ARTHROSCOPIC ARTHROSCOPY HIP W/ FEMOROPLASTY Referral ID Status Reason Start Date Expiration Date Visits Re quested Visits Authorized [id number] 1 1 Encounter Details Date Type Department Care Team (Late st Contact Info) Description 07/19/2022 6:19 EST - 07/19/2022 10:50 EST Hospital Encounter [facility] Operating Room [address] [place] [address] Tyler Brown MD [address] [place] [address] Discharge Disposition: Home or Self Care Social [...] Sign Reading Time Taken Comments Blood Pressure 108/71 07/19/2022 1016 EST Pulse - - Temperature 36.2 ??C (97.2 ??F) 07/19/2022 1030 EST Respiratory Rate 12 07/19/2022 1016 EST Oxygen Saturation 100% 07/19/2022 1016 EST Inhaled Oxygen Concentration - - Weight [...] additional Tylenol if on Vicodin, Percocet, or [place] unless instructed to by a doctor No [...] Pain. Daily Max: 20 mg 9 Tablet 12/27/202 2 12/21/19 23 indomethacin (INDOCIN) 25 mg [...] Code Departure Means Destination Home or Self Usp documented in this encounter H&P Notes * [...] back pain, as well as mild hyperlipidemia, treated with atorvastatin. He does have diabetes, maintained [...] examination. PLAN: Physical therapy referral placed, to [facility] and [place], [place]. A brace order was faxed to the [place], for the hip brace postoperatively. He has [...] OF : 72 SURGEON: Kelly Brown MD PHOTO MASK INSPECTOR: Kimberlee Domínguez DATE OF SURGERY: 07/19/22 PREOPERATIVE [...] arm was brought over the chest and well- padded to avoidany pressure points or tension on the shoulder. The nonoperative side arm was rested in a well-padded arm board. A well-padded perineal post was placed and bilateral feet wrapped in cotton padding and foam boots in place securely in the traction boots. Then, the operative leg was abductor and tracti on was applied. It was then a deducted [...] A parallel capsulotomy was performed with the [place] blade approximately 1 cm distal labrum to [...] at the end the case. A skilled assistant account manager was necessary to complete the procedure in [...] Instructions - Elidia Oseguera RN - 07/14/2022 8714 EST Diogo Martinez has been instructed as [...] 100 mg by mouth daily. Last dose x cyclobenzaprine (FLEXERIL) 10 mg tablet Take [...] - 07/19/2022 0908 EST Date: 07/19/2022 Location[place] [facility] [place] Name: Diogo Martinez, : 1970, Diagnosis [...] Hip (Active) [REMOVED] Non-Surgical Airway (Removed) Staff: Nurse Obgyn: Syed Partida RN Scrub Person: Yoni Cook [...] 07/21/2022 13:4 2 EST us Scan 2 Milieu Technician PROCEDURE/MINOR SURGICAL OR DERABLES Final Result * (ABNORMAL) POCT GLUCOSE, INTERFACED (07/19/2022 10:11 EST) Glucose, POC 183(H) 70 - 100 mg/dL 07/19/2022 10:[address] [facility] LAB POC COMMENT (GLUCOSE) Test Performed in SDS 07/19/2022 10:[address] [facility] Blood CAPILLARY BLOOD / Unknown 07/19/2022 10:11 EST 07/19/2022 10:12 EST us Tyler Brown MD POINT OF CARE TEST ORDERABLES Fi nal Result [facility] [address] [place] [address] * (ABNORMAL) POCT GLUCOSE, INTERFACED (07/19/2022 7:19 EST) Glucose, POC 178(H) 70 - 100 mg/dL 07/19/2022 7:[address] [facility] LAB POC COMMENT (GLUCOSE) Test Performed in [facility] 07/19/2022 7:[address] [facility] Blood CAPILLARY BLOOD / Unknown 07/19/2022 7:19 EST 07/19/2022 7:21 EST us Tyler Brown MD POINT OF CARE TEST ORDERABLES Fi nal Result [facility] [address] [place] [address] documented in this encounter Visit Diagnoses Diagnosis [...] Mon07/19/22 at 1250, Wheezing, Routine, Recovery (only) diazePAM (VALIUM) tablet 5 mg 5 mg, [...] 9:10 EST 100 mL 100 mL/hr lactated ringers BOLUS 500 mL 500 mL, [...] 0700, Routine 0700 (Canceled Entry - Provider: Fidel Job User Admin - Comment: Automatically canceled [...] nebulize r solution 2.5 mg 1 07/19/2022 bupivacaine HCl 0.5 % (5 mg/mL) injection 1 07/19/2022 ceFAZolin in dextrose 5 % (A NCEF) IVPB DUPLEX 2,000 mg 1 07/19/2022 chlorhexidine gluconate 2 % cloth 1 Each 1 07/19/2022 diphenhydrAMINE (BENADRYL) i njection 6.25 mg 1 07/19/2022 glycopyrrolate (ROBINUL) injection 0.2 mg 1 07/19/2022 HYDROmorphone (PF) (DILAUDID ) 0.5 mg/0.5 mL syringe 0.5 mg 1 07/19/2022 labetalol (TRANDATE) injection 5 mg 1 07/19 lactated Ringers 3,000 mL wi th EPINEPHrine (ADRENALIN) 1 mL 1 07/19/2022 lactated ringers BOLUS 500 mL 1 07/19/2022 lidocaine (PF) 10 mg/mL (1 % ) injection 2 mg 1 07/19/2022 meperidine (PF) (DEMEROL) in jection 12.5 mg 1 07/19/2022 methocarbamoL (ROBAXIN) tablet 1,000 mg 1 1 09/19/2021 ondansetron (PF) (ZOFRAN) injection 4 mg 1 07/19/2022 Discharge Count Last Ordered Date First Orde red Date DISCHARGE PATIENT 1 07/19/2022 documented in this encounter Care Teams Hourly Caregiver Relationship Specialty Start Date End Date Yesenia Morales NP [address] [place] [id number] PCP - General 06/14/21 documented as of this encounter
--- OUTSIDE RECORDS SUMMARY | 2024-08-01 21:57 | XMS_ITS | Encounter Summary ---
Author Organization [facility] Address [address] [place] [address] Care Team Providers Care Verify Rep Name Role Phone CarlineYesenia trejo MOHAN Primary Care Provider [phone] Encounter Details Date Type Department Care Team (Late st Contact Info) Description 07/13/2023 Orders Only [facility] [address] [place], [place] [address] Nisha Cook PA [address] [place], [place] Infected abrasion of right thumb, initial encounter; Dizziness Social History Tobacco Use Types Packs/Day Years [...] Date/Time Associated Diagnosis Comments BACTERIAL CULTURE/SMEAR Routine 07/13/2023 13:12 EST Infected abrasion of right thumb, initial encounter MISCELLANEOUS TEST, [place] Routine 07/13/2023 13:12 EST Infected abrasion of right thumb, initial encounter VITAMIN B12 Routine 07/13/2023 13:12 EST Dizziness documented in this encounter Results * (ABNORMAL) BACTERIAL CULTURE/SMEAR (07/13/2023 13:12 EST) Organism ID Moderate Methicillin-Sens itive Staphylococcus aureus(A) VITEK SUSCEPTIBILITY 07/18/2023 10:03 EST [facility] Smear Rare Neutrophils Present(A) 07/18/2023 10:03 [facility] Comment:Eswab submitted Smear Few Gram Positive Cocci(A) 07/18/2023 10:03 [facility] Swab THUMB STRUCTURE / Unknown Swab / Unknown 07/13/2023 13:12 EST 07/13/2023 13:12 EST Narrative [facility] - 07/18/2023 10:03 EST Susceptible to nafcillin, cephalosporins and other [...] minocycline. Methicillin-Sensitive Staphylococcus aureus Vancomycin VITEK SUSCEPTIBILITY <=0.5 ug/mL: Susceptible Nisha VELARDE MICROBIOLOGY - GENERAL ORDERA BLES Final Result Performing Organization Address [facility] Co de Phone Number [facility] [address] [place] [address] * VITAMIN B12 (07/13/2023 13:12 EST) [facility] Vitamin B12 322 211 - 911 pg/mL 07/13/2023 14:29 EST [facility] Blood VENOUS BLOOD / Unknown Venipuncture / Unknown 07/13/2023 13:12 EST 07/13/2023 13:12 EST Narrative [facility] - 07/13/2023 14:29 EST The results of this assay can be falsely elevated due to the consumption of Biotin. Nisha VELARDE CHEMISTRY & BLOOD GAS ORDERAB LES Final Result Performing Organization Address [facility] de Phone Number [facility] [address] [place] [address] * MISCELLANEOUS TEST, [place] (07/13/2023 13:12 EST) [facility] Miscellaneous Test, [place] SEE NOTE 07/18/2023 19:40 EST [facility] Comment: Test ? Result ? Flag ??Unit ??RefValue F. tularensis Ab, IgM/IgG JUANA, S ??F. tularensis Ab, IgM JUANA, S ? Negative ? Negative ??F. tularensis Ab, IgG JUANA, S ? Negative ? Negative ??F. tularensis Interpretation ? SEE NOTE ?No antibodies to Francisella tularensis detected. ?Antibody response may be negative in samples ?collected too soon following infection/exposure. ?Repeat testing on a new sample in 1-2 weeks ?if clinically indicated. ?Test Performed by: ?[facility] ?[address] [place] [address] ?Ecology Professor: Edison Oscar M.D. Ph.D.; CLIA# [id number] Blood VENOUS BLOOD / Unknown Venipuncture / Unknown 07/13/2023 13:12 EST 07/13/2023 13:12 EST us Nisha VELARDE CHEMISTRY & BLOOD GAS ORDERAB LES Final Result Performing Organization Address City/State/[facility] Co de Phone Number [facility] [address] [place] [address] documented in this encounter Visit Diagnoses Diagnosis Infected abrasion of right thumb, initial encounter Dizziness Dizziness and giddiness documented in this encounter Care Teams Verify Rep Relationship Specialty Start Date End Date Yesenia Morales NP [address] [place] [phone] PCP - General 06/14/21 documented as of this encounter
--- OUTSIDE RECORDS SUMMARY | 2024-08-01 21:57 | XMS_ITS | Encounter Summary ---
Author Organization [facility] Address [address] [place] [address] Care Team Providers Care Price Lister Name Role Phone Carmen Yesenia MOHAN Primary Care Provider [phone] Encounter Details Date Type Department Care Team (Late st Contact Info) Description 12/05/2022 Telephone [facility] [address] [place], [place] [address] Clark Oliva MD [address] [place] [address] [place] [phone] Social History Tobacco Use Types Packs/Day Years [...] encounter Miscellaneous Notes * Telephone Encounter - Yanci Mccrary RN - 12/06/2022 0828 EDT Returned patients phone call and was able to complete his 3 week KIM and 7 month f/u from his bilateral low back RFAs from March and April * Telephone Encounter - Adán Carlos - 12/05/2022 1549 EDT Reason for Call: follow up summary/Symptoms: Appointment Offered? No Does Nurse Need to Follow Up? Yes Follow Up Needed? Patient returned call for follow up from 11/03/22 Adán Carlos 12/05/2022 15:49 documented in this encounter Plan of Treatment Not on file documented as of this encounter Visit Diagnoses Not on filedocumented in this encounter Care Teams Price Lister Relationship Specialty Start Date End Date Yesenia Morales NP [address] [place] [phone] PCP - General 06/14/21 documented as of this encounter
--- OUTSIDE RECORDS SUMMARY | 2024-08-01 21:57 | XMS_ITS | Encounter Summary ---
Author Organization [facility] Address [address] [place] [address] Care Team Providers Care Checker In Name Role Phone CarlineYesenia trejo MOHAN Primary Care Provider [phone] Encounter Details Date Type Department Care Team (Latest Contact Info) Description 07/19/2022 Travel Social History Tobacco Use Types Packs/Day [...] 6:45 EST documented as of this encounter Functional Status [...] on filedocumented in this encounter Care Teams Checker In Relationship Specialty Start Date End Date Yesenia Morales NP [address] [place] [phone] PCP - General 06/14/21 documented as of this encounter
--- OUTSIDE RECORDS SUMMARY | 2024-08-01 21:57 | XMS_ITS | Encounter Summary ---
Author Organization [facility] Address [address] [place] [address] Care Team Providers Care Line Fisher Name Role Phone CarlineYesenia trejo MOHAN Primary Care Provider [phone] Encounter Details Date Type Department Care Team (Latest Contact Info) Description 10/26/2022 Travel Social History Tobacco Use Types Packs/Day [...] suspected to have Coronavirus/COVID-19? No / Unsure 10/26/2022 16:11 EDT documented as of this encounter Functional [...] on filedocumented in this encounter Care Teams Line Fisher Relationship Specialty Start Date End Date Yesenia Morales NP [address] [place] [phone] PCP - General 06/14/21 documented as of this encounter
--- OUTSIDE RECORDS SUMMARY | 2024-08-01 21:57 | XMS_ITS | Encounter Summary ---
Author Organization [facility] Address [address] [place] [address] Care Team Providers Care Facer Operator Name Role Phone CarlineYesenia trejo MOHAN Primary Care Provider [phone] Encounter Details Date Type Department Care Team (Latest Contact Info) Description 07/04/2022 Travel Social History Tobacco Use Types Packs/Day [...] suspected to have Coronavirus/COVID-19? No / Unsure 07/04/2022 15:45 EST documented as of this encounter Functional [...] on filedocumented in this encounter Care Teams Facer Operator Relationship Specialty Start Date End Date Yesenia Morales NP [address] [place] [phone] PCP - General 06/14/21 documented as of this encounter
--- OUTSIDE RECORDS SUMMARY | 2024-08-01 21:57 | XMS_ITS | Encounter Summary ---
Author Organization [facility] Address [address] [place] [address] Care Team Providers Care Jet Dyeing Machine Tender Name Role Phone CarlineYesenia trejo MOHAN Primary Care Provider [phone] Reason for Visit * Reason Comments Follow-up Encounter Details Date Type Department Care Team (Late st Contact Info) Description 08/29/2022 16:45 EST Office Visit [facility] Orthopedics & Sport Medicine [address], [address] [place], [place] [phone] Tyler Brown MD [address] [facility] [address] [place] [address] Left hip pain (Primary Dx) [...] suspected to have Coronavirus/COVID-19? No / Unsure 08/29/2022 16:40 EST documented as of this encounter Functional [...] documented in this encounter Progress Notes * Tyler Brown MD - 08/29/2022 1645 EST The patient presents today approximately 6-week status post left hip arthroscopy, with debridement,chondroplasty, synovectomy, and femoroplasty. He is weaned successfully from crutches. He is dealing with some tendinitis around the hip. Continues to make progress with physical therapy. A 10-point review of systems has been [...] DISC MISC by not applicable route. ??? cyclobenzaprine (FLEXERIL) 10 mg tablet TAKE [...] pregabalin (LYRICA) 200 mg capsule Generally BID ??? terbinafine HCL (LAMISIL) 250 mg tablet [...] pink and dry to inspection and palpation. Tenderness palpation over the iliotibial band as well as the iliopsoas. Distally neurovascular intact throughout ASSESSMENT: 6 weeks status post left hip arthroscopy PLAN: Overall, the patient continues to progress with physical therapy, although he is slightly limited presently due to tendinitis about the hip. This is localized over the hip flexor as well as other regions about the hip. I expect that this will improve as he gets further out from surgery. We did discuss that he did have some chondral changes at the time of surgery, and we will need to observethese moving forward. He voiced understanding of this. We will follow-up in approximately 6 weeks. A work note was completed today keeping him out of work until the next assessment in 6 weeks. Tyler Brown MD 08/29/2022 documented in this encounter Plan of Treatment Not on file documented as of this encounter Visit Diagnoses Diagnosis Left hip pain- Primary Pain in joint, pelvic region and thigh documented in this encounter Care Teams Jet Dyeing Machine Tender Relationship Specialty Start Date End Date Yesenia Morales NP [address] [place] [phone] PCP - General 06/14/21 documented as of this encounter
--- OUTSIDE RECORDS SUMMARY | 2024-08-01 21:57 | XMS_ITS | Encounter Summary ---
Author Organization [facility] Address [address] [place] [address] Care Team Providers Care Tack Cleaner Name Role Phone Carlinemaya Yesenia MOHAN Primary Care Provider [phone] Encounter Details Date Type Department Care Team (Late st Contact Info) Description 07/12/2023 Results Only [facility] Laboratory Services - [facility] [address] [place] [address] Nisha Cook PA [address] [place] [address] Social History Tobacco Use Types Packs/Day Years [...] Procedure Name Priority Date/Time Associated Diagnosis Comments COMPLETE BLOOD COUNT WITH DIFFERENTIAL (AUTO) Routine 07/12/2023 15:53 EST documented in this encounter Results * (ABNORMAL) COMPLETE BLOOD COUNT WITH DIFFERENTIAL (AUTO) (07/12/2023 15:53 EST) WBC 12.3(H) 4.0 - 10.4 x10e3/uL [facility] Lymphocytes 17.6 % [facility] Monocytes 6.3 % [facility] Lymph # 2.17 1.09 - 3.30 x10e3/uL [facility] [place] # 0.78 0.10 - 0.80 x10e3/uL [facility] RBC 4.34(L) 4.36 - 5.78 x10e6/uL [facility] HGB 13.4(L) 13.8 - 17.3 g/dL [facility] HCT 39.0(L) 39.5 - 50.2 % [facility] MCV 89.9 81.0 - 95.0 fL [facility] MCH 30.9 27.6 - 33.0 pg [facility] MCHC 34.4 32.8 - 36.4 g/dL [facility] RDW 13.3 <14.2 % [facility] PLT 308 141 - 377 x10e3/uL [facility] MPV 9.7 9.5 - 12.7 fL [facility] Absolute Neutrophil 9.10(H) 2.20 - 8.85 x10e3/uL [facility] Neutrophils 73.9 % [facility] Eosinophils 1.5 % [facility] Eosinophils Absolute 0.18 0.03 - 0.61 x10e3/uL [facility] Basophils 0.5 % [facility] Basophils Absolute 0.06 0.01 - 0.11 x10e3/uL [facility] Immature Granulocytes 0.2 % [facility] Immature Granulocytes Absolute 0.02 0.00 - 0.06 x10e3/uL [facility] RDW-SD 45.0 <46.0 fL [facility] 07/12/2023 15:5 3 EST us Nisha VELARDE HEMATOLOGY & PF4 ORDERABLES F inal Result [facility] [address] [place] [address] documented in this encounter Visit Diagnoses Not on filedocumented in this encounter Care Teams Tack Cleaner Relationship Specialty Start Date End Date Yesenia Morales NP [address] [place] [phone] PCP - General 06/14/21 documented as of this encounter
--- OUTSIDE RECORDS SUMMARY | 2024-08-01 21:57 | XMS_ITS | Encounter Summary ---
Author Organization [facility] Address [address] [place] [address] Care Team Providers Care Cellophane Worker Name Role Phone CarlineYesenia trejo MOHAN Primary Care Provider [phone] Encounter Details Date Type Department Care Team (Latest Contact Info) Description 10/07/2022 Travel Social History Tobacco Use Types Packs/Day [...] suspected to have Coronavirus/COVID-19? No / Unsure 10/07/2022 9:18 EDT documented as of this encounter Functional [...] on filedocumented in this encounter Care Teams Cellophane Worker Relationship Specialty Start Date End Date Yesenia Morales NP [address] [place] [phone] PCP - General 06/14/21 documented as of this encounter
--- OUTSIDE RECORDS SUMMARY | 2024-08-01 21:57 | XMS_ITS | Encounter Summary ---
Author Organization [facility] Address [address] [place] [address] Care Team Providers Care Metal Die Finisher Name Role Phone CarlineYesenia trejo MOHAN Primary Care Provider Reason for Visit * Reason Comments Post-OP Follow Up Encounter Details Date Type Department Care Team (Late st Contact Info) Description 08/01/2022 16:00 EST Post-op Visit [facility]opedics & Sport Medicine [address], [address] [place] [address] Tyler Brown MD [address] [facility] [address] [place] [address] Left hip pain (Primary Dx) Social [...] Progress Notes * Tyler Brown MD - 08/01/2022 1600 EST The patient presents today approximately 2-week status post left hip arthroscopy. Recovering well. No adverse events reported. Working with physical therapy. A 10-point review of [...] as needed for Pain or Muscle Spasms. ??? ondansetron (ZOFRAN-ODT) 4 mg disintegrating tablet Take 1 Tablet by mouth every 8 hours as needed for Nausea. (Patient not taking: Reported on 08/01/2022) ??? oxyCODONE (ROXICODONE) 5 mg immediate release tablet Take 1 Tablet by mouth every 6 hours as needed for Pain. Daily Max: 20 mg (Patient not taking: Reported on 08/01/2022) ??? pregabalin (LYRICA) 200 mg capsule Generally [...] pink and dry to inspection and palpation. Surgical incisions healing well. No signs of infection. Neurovascular intact throughout ASSESSMENT: 2-week status post left hip arthroscopy, recovering well PLAN: The patient is recovering well. We reviewed his physical therapy protocol moving forward. He voiced understanding. We will follow-up in approximately 4 weeks. I spent a total of 15 minutes on the date of this encounter meeting with the patient and reviewing documentation/coordinating care as described in the above note. Tyler Brown MD 08/01/2022 documented in this encounter Plan of Treatment Not on file documented as of this encounter Visit Diagnoses Diagnosis Left hip pain- Primary Pain in joint, pelvic region and thigh documented in this encounter Historical Medications * This list may reflect changes made after this encounter. cyclobenzaprine (FLEXERIL) 10 mg tablet TAKE TWO TABLETS BY MOUTH AT BEDTIME NEEDED FOR PAIN. USE AT BEDTIME DUE TO SEDATION 07/19/2022 added in this encounter Care Teams Metal Die Finisher Relationship Specialty Start Date End Date Yesenia Morales NP [address] [place] [phone] PCP - General 06/14/21 documented as of this encounter
--- OUTSIDE RECORDS SUMMARY | 2024-08-01 21:57 | XMS_ITS | Encounter Summary ---
Author Organization [facility] Address [address] [place] [address] Care Team Providers Care Corporate Legal Intern Name Role Phone Carlinemaya Yesenia MOHAN Primary Care Provider [phone] Encounter Details Date Type Department Care Team (Late st Contact Info) Description 07/12/2023 Results Only [facility] Services - [facility] [address] [place] [address] Nisha Cook PA [address] [place] [address] Social History Tobacco Use Types Packs/Day Years [...] Procedure Name Priority Date/Time Associated Diagnosis Comments HEMOGLOBIN A1C Routine 07/12/2023 16:14 EST documented in this encounter Results * (ABNORMAL) HEMOGLOBIN A1C (07/12/2023 16:14 EST) HgB A1C% 13.2(H) 4.0 - 6.0 % [facility] Average Calculated 360(H) 60 - 115 mg/dL [facility] 07/12/2023 16:1 4 EST us Nisha VELARDE CHEMISTRY & BLOOD GAS ORDERAB LES Edited Result - Final [facility] [address] [place] [address] documented in this encounter Visit Diagnoses Not on filedocumented in this encounter Care Teams Corporate Legal Intern Relationship Specialty Start Date End Date Yesenia Morales NP [address] [place] [phone] PCP - General 06/14/21 documented as of this encounter
--- OUTSIDE RECORDS SUMMARY | 2024-08-01 21:57 | XMS_ITS | Encounter Summary ---
Author Organization [facility] Address [address] [place] [address] Care Team Providers Care Broiler Supervisor Name Role Phone Carlinemaya Yesenia MOHAN Primary Care Provider [phone] Encounter Details Date Type Department Care Team (Late st Contact Info) Description 07/12/2023 Results Only [facility] Laboratory Services - [facility] [address] [place] [address] Nisha Cook PA [address] [place] [address] Social History Tobacco Use Types Packs/Day Years [...] Procedure Name Priority Date/Time Associated Diagnosis Comments COMPREHENSIVE METABOLIC PANEL (CMP) Routine 07/12/2023 7:27 EST documented in this encounter Results * (ABNORMAL) COMPREHENSIVE METABOLIC PANEL (CMP) (07/12/2023 7:27 EST) Glucose 428.00(H) 70.00 - 100.00 mg/dL [facility] Bun 18.00 7.00 - 20.00 mg/dL [facility] Creatinine 0.80 0.70 - 1.50 mg/dL [facility] GFR, Calculated >60 [facility] Comment: Chronic renal impairment is defined as GFR <60 Multiply result by 1.210 for patients eGFR calculated using the IDMS-traceable MDRD study Sodium 140.00 137.00 - 145.00 mmol/L [facility] Potassium 4.50 3.50 - 5.10 mmol/L [facility] Chloride 104.00 98.00 - 107.00 mmol/L [facility] Carbon Dioxide 24.00 22.00 - 30.00 mmol/L [facility] Calcium 9.40 8.50 - 10.50 mg/dL [facility] Anion Gap 12 7 - 17 mmol/L [facility] Total Protein 6.50 6.30 - 8.20 g/dL [facility] Albumin 4.00 3.50 - 5.00 g/dL [facility] Total Bilirubin 0.40 0.20 - 1.30 mg/dL [facility] AST/SGOT 24.00 15.00 - 46.00 U/L [facility] ALT/SGPT 26.00 0.00 - 50.00 U/L [facility] ALK 141.00(H) 38.00 - 126.00 U/L [facility] 07/12/2023 7:27 EST us Nisha VELARDE CHEMISTRY & BLOOD GAS ORDERAB LES Final Result [facility] [address] [place], [place] [phone] documented in this encounter Visit Diagnoses Not on filedocumented in this encounter Care Teams Broiler Supervisor Relationship Specialty Start Date End Date Yesenia Morales NP [address] [place] [phone] PCP - General 06/14/21 documented as of this encounter
--- OUTSIDE RECORDS SUMMARY | 2024-08-01 21:57 | XMS_ITS | Encounter Summary ---
Author Organization [facility] Address [address] [place] [address] Care Team Providers Care Strip Cleaner Name Role Phone Carlinemaya Yesenia MOHAN Primary Care Provider [phone] Encounter Details Date Type Department Care Team (Late st Contact Info) Description 07/12/2023 Results Only [facility] Laboratory Services - [facility] [address] [place] [address] Nisha Cook PA [address] [place] [address] Social History Tobacco Use Types Packs/Day Years [...] Procedure Name Priority Date/Time Associated Diagnosis Comments VITAMIN D (25,OH) Routine 07/12/2023 7:27 EST documented in this encounter Results * VITAMIN D (25,OH) (07/12/2023 7:27 EST) Vitamin D 52 30 - 100 ng/ml [facility] 07/12/2023 7:27 EST us Nisha VELARDE CHEMISTRY & BLOOD GAS ORDERAB LES Final Result [facility] [address] [place], [place] [phone] documented in this encounter Visit Diagnoses Not on filedocumented in this encounter Care Teams Strip Cleaner Relationship Specialty Start Date End Date Yesenia Morales NP [address] [place] [phone] PCP - General 06/14/21 documented as of this encounter
--- OUTSIDE RECORDS SUMMARY | 2024-08-01 21:57 | XMS_ITS | Encounter Summary ---
Author Organization [facility] Address [address] [place] [address] Care Team Providers Care Lead Dental Assistant Name Role Phone CarlineYesenia trejo MOHAN Primary Care Provider [phone] Encounter Details Date Type Department Care Team (Latest Contact Info) Description 07/13/2023 13:11 EST - 07/13/2023 15:31 EST Hospital Encounter [facility] - Main [address] [address] Instructor Flying, [facility] Elevated cholesterol with elevated triglycerides Discharge Disposition: Home or Self Care Social [...] 2 Tablets by mouth. Most nights 03/16/2021 ibuprofen (MOTRIN) 200 mg tabletIndication s:pain Take [...] 04/10/2021 4 documented as of this encounter Discharge Disposition Disposition Code Departure Means Destination Home or Self Care documented in this encounter Plan of Treatment Not on file documented as of this encounter Procedures Procedure Name Priority Date/Time Associated Diagnosis Comments LDL, DIRECT Routine 07/13/2023 13:12 EST Elevated cholesterol with elevated triglycerides documented in this encounter Results * LDL, DIRECT (07/13/2023 13:12 EST) LDL, Direct 66 <160 mg/dL 07/13/2023 14:20 EST [facility] Comment: LDL, Direct Reference Ranges: Optimal: Less than 100 mg/dL Above Optimal: 100-129 mg/dL Borderline High: 130-159 mg/dL High: 160-189 mg/dL Very High: Greater than or equal to 190 mg/dL Blood VENOUS BLOOD / Unknown Venipuncture / Unknown 07/13/2023 13:12 EST 07/13/2023 13:12 EST us Nisha VELARDE CHEMISTRY & BLOOD GAS ORDERAB LES Final Result [facility] [address] [place] [address] documented in this encounter Visit Diagnoses Diagnosis Elevated cholesterol with elevated triglycerides Mixed hyperlipidemia documented in this encounter Care Teams Lead Dental Assistant Relationship Specialty Start Date End Date Yesenia Morales NP [address] [place] [phone] PCP - General 06/14/21 documented as of this encounter
--- OUTSIDE RECORDS SUMMARY | 2024-08-01 21:57 | XMS_ITS | Encounter Summary ---
Author Organization [facility] Address [address] [place] [address] Care Team Providers Care Bunk Assembler Name Role Phone IlanYesenia acuña MOHAN Primary Care Provider [phone] Reason for Visit * Reason Comments Pain Encounter Details Date Type Department Care Team (Late st Contact Info) Description 10/07/2022 9:15 EDT Office Visit [facility] Orthopedics & Sport Medicine [address], [address] [place] [address] Yoni Florentino PA-C [address] [facility] [address] [place] [address] Right hip pain (Primary Dx); Osteonecrosis of both hips (HCC-CMS) Social History Tobacco Use Types Packs/Day Years [...] Progress Notes * Cecy Todd MA - 10/07/2022 0915 EDT Diogo presents today for a f/u evaluation of his left hip. DOS: 07/19/22 left hip arthroscopy with debridement, chondroplasty, synovectomy, and femoroplasty LV with 08/29/22 per note slightly limited presently due to tendinitis of the hip. Suspect this will improve as he gets farther out from surgery. * Yoni Florentino PA-C - 10/07/2022 0915 EDT CHIEF COMPLAINT: Right hip pain Chief Complaint Patient presents with ??? Right Hip - Pain SUBJECTIVE: Diogo here for exam of his right hip pain. He does have a history of osteonecrosis of bilateral hips and left hip had arthroscopy on 07/04/[address] Brown consistent with debridement, chondroplasty, synovectomy and femoroplasty. Overall the left hip is coming along quite nicely and he is pleased with the outcome. Still has soreness and discomfort but much better than it was prior to surgery. About 2 weeks ago he had a sudden onset of pain to his contralateral right hip and he indicates with a positive C sign. The pain in the groin that does radiate posterior to the gluteus region. It was quite painful and is having difficulties with weightbearing however denies any known trauma. 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 Some similarities to the contralateral left hip prior to surgery. He was having a lot of pain with walking especially going up and down stairs which is somewhat better. Continues to have occasional nocturnal symptoms. The past medical, family and social history have been reviewed in the patient chart. Past Medical History: Diagnosis Date ??? Back [...] a steady gait. Exam of the right hip has adequate flexion and external rotation without reproducible pain however his internal rotation was limited to about 20 degrees and painful at end arc. Abduction/adduction was well maintained with little discomfort. Adequate strength against resistance with adduction and abduction. ASSESSMENT: Left hip pain. Degenerative arthritis and likely osteonecrosis PLAN: X-ray of the right hip had similar appearance to previous x-ray left hip. There is joint space narrowing with marginal osteophytes Signs and symptoms similar to the contralateral hip that was diagnosed with osteonecrosis and degenerative arthritis that was helped with recent arthroscopy. He does have a follow-up visit with Dr. Brown on 10/10/2022 and recommend he discuss the findings on the right hip to see if arthroscopy wouldbe recommended versus follow-up for total hip replacement This note was prepared using voice recognition software and the EMR. There may be inadvertent errors and omissions. Jacinto Florentino PA-C 10/07/2022 documented in this encounter Plan of Treatment Not on file documented as of this encounter Results * XR HIP 1 VIEW WITH ORTHOPELVIS RIGHT (10/07/2022 9:47 EDT) Anatomical Region Laterality Modality Lower Extremities Right Computed Radio graphy 10/07/2022 11:4 0 EDT Narrative 10/07/2022 11:40 EDT INDICATION: right hip pain TECHNIQUE: AP and frog-leg lateral views of the right hip and an AP view of the contralateral left hip for comparison. COMPARISON: MRI 12/06/2021. FINDINGS: The right hip demonstrates moderate/severe superolateral joint space narrowing with mild associated osseous proliferative change. Subchondral sclerosis of the superolateral aspect of the humeral head appears reflect a small area of osteonecrosis on the comparison MRI.Similar findings are seen in the contralateral left hip. Procedure Note Colten Dennis MD - 10/07/2022 INDICATION: right hip pain TECHNIQUE: AP and frog-leg lateral views of the right hip and an AP viewof the contralateral left hip for comparison. COMPARISON: MRI 12/06/2021. FINDINGS: The right hip demonstrates moderate/severe superolateral jointspace narrowing with mild associated osseous proliferative change.Subchondral sclerosis of the superolateral aspect of the humeral headappears reflect a small area of osteonecrosis on the comparisonMRI.Similar findings are seen in the contralateral left hip. Yoni Florentino PA-C IMG DIAGNOSTIC IMAGING ORD ERABLES Final Result documented in this encounter Visit Diagnoses Diagnosis Right hip pain- Primary Pain in joint, pelvic region and thigh Osteonecrosis of both hips (HCC-CMS) documented in this encounter Historical Medications * This list may reflect changes made after this encounter. celecoxib (CELEBREX) 200 mg capsule TAKE ONE CAPSULE BY MOUTH EVERY DAY FOR PAIN 10/04/2022 10/19/2023 added in this encounter Care Teams Bunk Assembler Relationship Specialty Start Date End Date Yesenia Morales NP [address] [place] [phone] PCP - General 06/14/21 documented as of this encounter
--- OUTSIDE RECORDS SUMMARY | 2024-08-01 21:57 | XMS_ITS | Encounter Summary ---
Author Organization [facility] Address [address] [place] [address] Care Team Providers Care Service Inspector Name Role Phone Carlinemaya Yesenia MOHAN Primary Care Provider [phone] Reason for Visit * Reason Onset Date Comments Medication Management 10/26/2022 Encounter Details Date Type Department Care Team (Late st Contact Info) Description 10/26/2022 Telephone [facility] [address] [place] [phone] Padmini Adame RN Medication Management Social History Tobacco Use Types Packs/Day Years [...] encounter Miscellaneous Notes * Telephone Encounter - Luh Holley - 10/26/2022 1802 EDT ASA fax approval received and scanned * Telephone Encounter - Padmini Adame RN - 10/26/2022 1638 EDT Called patient's PCP (Yesenia Morales NP) at [facility] for an URGENT request for aspirin hold. Patient is scheduled for Cervical KATELYNN on 11-03-2022 and per protocol we are requesting 7 dayaspirin hold. Informed Nury at [facility] this is an urgent request as patient reported during pre-procedure call that his is taking ASA 81mg, this was not on his chart. Requested faxed approval and provided fax number [phone]. documented in this encounter Plan of Treatment Not on file documented as of this encounter Visit Diagnoses Not on filedocumented in this encounter Care Teams Service Inspector Relationship Specialty Start Date End Date Yesenia Morales NP [address] [place] [phone] PCP - General 06/14/21 documented as of this encounter
--- OUTSIDE RECORDS SUMMARY | 2024-08-01 21:57 | XMS_ITS | Encounter Summary ---
Author Organization [facility] Address [address] [place] [address] Care Team Providers Care Rough Rice Grader Name Role Phone Carlinemaya Yesenia MOHAN Primary Care Provider [phone] Encounter Details Date Type Department Care Team (Late st Contact Info) Description 07/12/2023 Results Only [facility] Laboratory Services - [facility] [address] [place] [address] Nisha Cook PA [address] [place] [address] Social History Tobacco Use Types Packs/Day Years [...] Procedure Name Priority Date/Time Associated Diagnosis Comments MAGNESIUM Routine 07/12/2023 7:27 EST documented in this encounter Results * MAGNESIUM (07/12/2023 7:27 EST) Magnesium 2.00 1.60 - 2.30 mg/dL [facility] 07/12/2023 7:27 EST us Nisha VELARDE CHEMISTRY & BLOOD GAS ORDERAB LES Final Result [facility] [address] [place] [address] documented in this encounter Visit Diagnoses Not on filedocumented in this encounter Care Teams Rough Rice Grader Relationship Specialty Start Date End Date Yesenia Morales NP [address] [place] [phone] PCP - General 06/14/21 documented as of this encounter
--- OUTSIDE RECORDS SUMMARY | 2024-08-01 21:57 | XMS_ITS | Encounter Summary ---
Author Organization [facility] Address [address] [place] [address] Care Team Providers Care Smoke Jumper Name Role Phone Yesenia Morales NP Primary Care Provider [phone] Reason for Referral * Referral (Routine/Next Available) - Authorization Not Required Specialty Diagnoses / Procedures [facility] Referred To Contact Pain Medicine Diagnoses Right cervical radiculopathy Procedures EPIDURAL STEROID INJECTION ON THE SPINE WITH FLUOROSCOPY Hattie Powell NP [address] [place] [address] Phone: tel: fax: [facility] [address] [place] [address] Phone: tel: Referral ID Status Reason Start Date Expiration Date Visits Requested Visits Authorized [id number] Authorization Not Required 09/09/2022 1 1 Encounter Details Date Type Department Care Team (Latest Contact Info) Description 09/09/2022 Transcribe Orders [facility] [address] [place] [address] Hattie Powell NP [address] [place] [address] [place] [phone] Right cervical radiculopathy (Primary Dx) Social History Tobacco Use [...] Recorded In the last 10 days, have corry u been in contact with someone who [...] Type Priority Associated Diagnoses Orde r Schedule EPIDURAL STEROID INJECTION ON THE SPINE WITH FLUOROSCOPY Procedures Routine Right cervical radiculopathy Expected: 09/09/2022 (Approximate), Expires: 09/09/2023 documented as of this encounter Visit Diagnoses Diagnosis Right cervical radiculopathy- Primary Brachial neuritis or radiculitis nos documented in this encounter Care Teams Smoke Jumper Relationship Specialty Start Date End Date Yesenia Morales NP [address] [place] [phone] PCP - General 06/14/21 documented as of this encounter
--- OUTSIDE RECORDS SUMMARY | 2024-08-01 21:57 | XMS_ITS | Encounter Summary ---
Author Organization [facility] Address [address] [place] [address] Care Team Providers Care Guard Range Name Role Phone Yesenia Morales NP Primary Care Provider [phone] Reason for Referral * Radiology Services (Routine/Next Available) - Authorization Not Required Specialty Diagnoses / Procedures Referred By Sajan calix Referred To Contact Diagnoses Right cervical radiculopathy Procedures FL C-ARM BLOCK/INJECTION IN CLINIC Clark Oliva MD Phone: tel: fax: [facility] Referral ID Status Reason Start Date Expiration Date Visits Requested Visits Authorized [id number] Authorization Not Required 11/02/2022 1 1 Reason for Visit * Auth/Cert (Routine) Specialty Diagnoses / Procedures Referred By Sajan calix Referred To Contact Referral ID Status Reason Start Date Expiration Date Visits Re quested Visits Authorized [id number] 1 1 Encounter Details Date Type Department Care Team (Latest Contact Info) Description 11/03/2022 8:52 EDT - 11/03/2022 23:59 EDT Hospital Encounter [facility] Xray [address] [place] [address] Right cervical radiculopathy Discharge Disposition: Home or Self Care [...] suspected to have Coronavirus/COVID-19? No / Unsure 11/03/2022 7:52 EDT documented as of this encounter Functional [...] USE AT BEDTIME DUE TO SEDATION 07/19/2022 diphenhydrAMINE-mckinley taminophen 25-500 mg tablet Take 2 Tablets by mouth. Most nights 03/16/2021 ibuprofen (MOTRIN) 200 mg tabletIndications:p ain Take 4 Tablets by mouth at bedtime [...] D ORAL) Take by mouth. weekly 4 methocarbamoL (ROBAXIN) 500 mg tablet Take 1 Tablet by mouth 4 times daily as needed for Pain or Muscle Spasms. 30 Tablet 07/19/2022 3 ondansetron (ZOFRAN-ODT) 4 mg disintegrating tablet Take 1 Tablet by mouth every 8 hours as needed for Nausea. 15 Tablet 07/19/2022 3 oxyCODONE (ROXICODONE) 5 mg immediate release tablet Take 1 Tablet by mouth every 6 hours as needed for Pain. Daily Max: 20 mg 9 Tablet 07/19/2022 3 pregabalin (LYRICA) 200 mg capsule Generally BID 04/10/2021 02 4 documented as of this encounter Discharge Disposition Disposition Code Departure Means Destination Home or Self Care documented in this encounter Plan of Treatment Not on file documented as of this encounter Procedures Procedure Name Priority Date/Time Associated Diagnosis Comments FL C-ARM BLOCK/INJECTION IN CLINIC Routine 11/03/2022 8:52 EDT Right cervical radiculopathy documented in this encounter Results * FL C-ARM BLOCK/INJECTION IN CLINIC (11/03/2022 8:52 EDT) Narrative 11/03/2022 8:52 EDT This is a non-reportable exam. Clark Oliva MD IMG FLUOROSCOPY ORDERABLES Yolis l Result documented in this encounter Visit Diagnoses Diagnosis Right cervical radiculopathy Brachial neuritis or radiculitis nos documented in this encounter Care Teams Guard Range Relationship Specialty Start Date End Date Yesenia Morales NP [address] [place] [phone] PCP - General 06/14/21 documented as of this encounter
--- OUTSIDE RECORDS SUMMARY | 2024-08-01 21:57 | XMS_ITS | Encounter Summary ---
Author Organization [facility] Address [address] [place] [address] Care Team Providers Care Bucket Hooker Name Role Phone CarlineYesenia trejo MOHAN Primary Care Provider [phone] Encounter Details Date Type Department Care Team (Latest Contact Info) Description 10/10/2022 Travel Social History Tobacco Use Types Packs/Day [...] on filedocumented in this encounter Care Teams Bucket Hooker Relationship Specialty Start Date End Date Yesenia Morales NP [address] [place] [phone] PCP - General 06/14/21 documented as of this encounter
--- OUTSIDE RECORDS SUMMARY | 2024-08-01 21:57 | XMS_ITS | Encounter Summary ---
Author Organization [facility] Address [address] [place] [address] Care Team Providers Care Instrument Repair Specialist Name Role Phone CarlineYesenia trejo MOHAN Primary Care Provider [phone] Reason for Visit * Reason Comments Follow-up Encounter Details Date Type Department Care Team (Latest Contact Info) Description 12/20/2022 15:45 EDT Office Visit [facility] Orthopedics & Sport Medicine [address], [address] [place] [address] Etta Palma MD [address] [facility] [address] [place] [address] Osteonecrosis of both hips (HCC-CMS) (Primary Dx); Arthritis of right hip Social History Tobacco Use Types Packs/Day Years [...] documented in this encounter Progress Notes * Kathy Garrido RN - 12/20/2022 1443 EDT Diogo is a 52 year old male who presents today for follow up of their right hip pain. History of left hip arthroscopy, with debridement, chondroplasty, synovectomy, and femoroplasty completed on 07/19/22 by ANDREE. NAOMIE with on 10/10/22 Overall, the patient continues to progress with physical therapy, and wants to go back to work tomorrow. He is doing very well and is doing better than prior to surgery. We will have him see Dr. Palma to consider total hip replacement discussion with regard to the right hip. Xray done 10/07/22- Right hip ----- Smokes slightly less than 1 per day Diabetic * Etta Palma MD - 12/20/2022 3201 EDT Orthopaedic Surgery Office Note Diogo Martinez [id number] Subjective: Diogo Martinez is a very pleasant 52 y.o. male who presents today for right > Left hippain. They are s/p left hip arthroscopy with Dr. Brown. He continues to work with PT. Presently they are experiencing groin pain and pain with walking and range of motion. They have been doing strength work and taking celebrex for it. They deny inciting injury. Patient Active Problem List Diagnosis ??? Osteonecrosis of both hips (HCC-CMS) (HCC) ??? Left hip pain Objective: No data found. Gen- awake alert appropriate in no acute distress Bilateral hips- Hip flexion, internal rotation, external rotation, flexion, abduction, adduction strength all tested. Palpated for tenderness over greater trochanteric bursa and provocative testing performed. Examination was notable for the following- Right with pain in groin with IR > neutral, ER > 60, flexion past 110. Left hip with pain with IR > 10 deg IR, ER > 60, flexion past 110. Light touch sensation intact in L2- S1 distribution with 5/5 strength to EHL /TA/GSC/knee flexion/ knee extension. Foot warm and well perfused. Imaging: Right hip xrays show severe degenerative changes with joint space narrowing osteophyte formation and sclerosis. Assessment/Plan: Diogo Martinez is a 52 y.o. male who presents for right > Left hip pain. Discussed the nature of the condition and possibility for ongoing non- operative treatment in the form of steroid injections, activity modification, anti-inflammatories and others versus operative treatment with total joint arthroplasty. At this point, opts to pursue additional contemplation. Seemed to be leaning in the direction of arthroplasty. Did specifically discuss tobacco cessation and policy of testing carboxyhemoglobin with pre-operative laboratory tests. Etta Palma MD Orthopaedics and Sports Medicine [facility] [address] [place], [place] documented in this encounter Plan of Treatment Not on file documented as of this encounter Visit Diagnoses Diagnosis Osteonecrosis of both hips ([facility]-CMS)- Primary Arthritis of right hip documented in this encounter Discontinued Medications Medication Sig Discontinue Reason Start Date End Da te oxyCODONE (ROXICODONE) 5 mg immediate release tablet Take 1 Tablet by mouth every 6 hours as needed for Pain. Daily Max: 20 mg Alternate therapy 07/19/2022 12/20/2022 ondansetron (ZOFRAN-ODT) 4 mg disintegrating tablet Take 1 Tablet by mouth every 8 hours as needed for Nausea. Alternate therapy 07/19/2022 12/20/2022 methocarbamoL (ROBAXIN) 500 mg tablet Take 1 Tablet by mouth 4 times daily as needed for Pain or Muscle Spasms. Alternate therapy 07/19/2022 12/20/2022 documented as of this encounter Care Teams Instrument Repair Specialist Relationship Specialty Start Date End Date Yesenia Morales NP [address] [place] [phone] PCP - General 06/14/21 documented as of this encounter
--- OUTSIDE RECORDS SUMMARY | 2024-08-01 21:57 | XMS_ITS | Encounter Summary ---
Author Organization [facility] Address [address] [place] [address] Care Team Providers Care Welding Machine Operator Friction Name Role Phone Carmen Yesenia MOHAN Primary Care Provider [phone] Encounter Details Date Type Department Care Team (Latest Contact Info) Description 07/13/2023 [facility] [address] [place] [address] Nisha Cook PA [address] [place], [place] Infected abrasion of right thumb, initial encounter (Primary Dx); Dizziness; Elevated cholesterol with elevated triglycerides Social History Tobacco Use Types Packs/Day Years [...] documented as of this encounter Results * LDL, DIRECT (07/13/2023 13:12 EST) LDL, Direct 66 <160 mg/dL 07/13/2023 14:20 EST [facility] Comment: LDL, Direct Reference Ranges: Optimal: Less than 100 mg/dL Above Optimal: 100-129 mg/dL Borderline High: 130-159 mg/dL High: 160-189 mg/dL Very High: Greater than or equal to 190 mg/dL Blood VENOUS BLOOD / Unknown Venipuncture / Unknown 07/13/2023 13:12 EST 07/13/2023 13:12 EST Nisha VELARDE CHEMISTRY & BLOOD GAS ORDERAB LES Final Result Performing Organization Address City/State/[facility] Co de Phone Number [facility] [address] [place] [address] * MISCELLANEOUS TEST, [place] (07/13/2023 13:12 EST) Pathologist [facility] Miscellaneous Test, [place] SEE NOTE 07/18/2023 19:40 EST [facility] Comment: Test ? Result ? Flag [...] weeks ?if clinically indicated. ?Test Performed by: ?[facility] ?[address] [place] [address] ?Consumer Loan Underwriter: Edison Oscar M.D. Ph.D.; IA# [id number] Blood VENOUS BLOOD / Unknown Venipuncture / Unknown 07/13/2023 13:12 EST 07/13/2023 13:12 EST Nisha VELARDE CHEMISTRY & BLOOD GAS ORDERAB LES Final Result Performing Organization Address [facility] Co de Phone Number [facility] [address] [place] [address] * VITAMIN B12 (07/13/2023 13:12 EST) Vitamin B12 322 211 - 911 pg/mL 07/13/2023 14:29 EST [facility] Blood VENOUS BLOOD / Unknown Venipuncture / Unknown 07/13/2023 13:12 EST 07/13/2023 13:12 EST Narrative [facility] - 07/13/2023 14:29 EST The results of this assay can be falsely elevated due to the consumption of Biotin. Nisha VELARDE CHEMISTRY & BLOOD GAS ORDERAB LES Final Result Performing Organization Address [facility]/ZIP Co de Phone Number [facility] [address] [place] [address] * (ABNORMAL) BACTERIAL CULTURE/SMEAR (07/13/2023 13:12 EST) Organism ID Moderate Methicillin-Sens itive Staphylococcus aureus(A) VITEK SUSCEPTIBILITY 07/18/2023 10:03 EST [facility] Smear Rare Neutrophils Present(A) 07/18/2023 10:03 EST [facility] Comment:Eswab submitted Smear Few Gram Positive Cocci(A) 07/18/2023 10:03 [facility] Swab THUMB STRUCTURE / Unknown Swab / Unknown 07/13/2023 13:12 EST 07/13/2023 13:12 EST Narrative [facility] - 07/18/2023 10:03 EST Susceptible to [...] aureus Vancomycin VITEK SUSCEPTIBILITY <=0.5 ug/mL: Susceptible us Nisha VELARDE MICROBIOLOGY - GENERAL ORDERA BLES Final Result [facility] [address] [place] [address] documented in this encounter Visit Diagnoses Diagnosis Infected abrasion of right thumb, initial encounter- Primary Dizziness Dizziness and giddiness Elevated cholesterol with elevated triglycerides Mixed hyperlipidemia documented in this encounter Care Teams Welding Machine Operator Friction Relationship Specialty Start Date End Date Yesenia Morales NP [address] [place] [phone] PCP - General 06/14/21 documented as of this encounter
--- OUTSIDE RECORDS SUMMARY | 2024-08-01 21:57 | XMS_ITS | Encounter Summary ---
Author Organization [facility] Address [address] [place] [address] Care Team Providers Care Biodiesel Product Development Manager Name Role Phone Yesenia Morales NP Primary Care Provider [phone] Reason for Referral * Referral (Routine/Next Available) - Authorization Not Required Specialty Diagnoses / Procedures Referred By Contac t Referred To Contact Pain Medicine Diagnoses Right cervical radiculopathy Procedures EPIDURAL STEROID INJECTION ON THE SPINE WITH FLUOROSCOPY Hattie Powell NP [address] [place] [address] [place] [address] Phone: tel: fax: [facility] [address] [place] [address] Phone: tel: Referral ID Status Reason Start Date Expiration Date Visits Requested Visits Authorized [id number] Authorization Not Required 09/09/2022 1 1 Reason for Visit * Auth/Cert (Routine) Specialty Diagnoses / Procedures Referred By Contac t Referred To Contact Referral ID Status Reason Start Date Expiration Date Visits Re quested Visits Authorized [id number] 1 1 Encounter Details Date Type Department Care Team (Latest Contact Info) Description 11/03/2022 7:21 EDT - 11/03/2022 8:51 EDT Hospital Encounter [facility] [address] [place] [address] Clark Oliva MD [address] [place] [id number] Radiculopathy, cervical region (Primary Dx); Right cervical radiculopathy Discharge Disposition: Home or [...] 7:52 EDT documented as of this encounter Last Filed Vital Signs Vital Sign Reading Time Taken Comments Blood Pressure 140/96 11/03/2022 0847 EDT Pulse - - Temperature 3.3 ??C (38 ??F) 11/03/2022 0847 EDT Respiratory Rate - - Oxygen Saturation 100% 11/03/2022 0847 EDT Inhaled Oxygen Concentration - - Weight 77.1 kg (170 lb) 11/03/2022 0745 EDT Height 170.2 cm (5' 7) 11/03/2022 0745 EDT Body Mass Index 26.63 11/03/2022 0745 EDT documented in this encounter Functional Status [...] this encounter Discharge Instructions * Discharge Instructions* Tiarra Greco RN - 11/03/2022 8:44 EDT [facility] Your procedure today was a cervical epidural steroid injection The following information should help you over the next few days: For your safety, you need to have someone drive you home today. Please do not drive a car or any motorized equipment for the rest of today. Activities are as tolerated. Plan light activities, nothing to stress or strain the area where you received your injection(s). Remove bandage(s) later today. Watch for signs of infection over the injection sites such as redness, warmth, bleeding, swelling, or drainage. Call if you have a fever greater than 101 degrees, not relieved by Tylenol, or any signs or symptoms of infection. Please ask your doctor when you can restart your blood thinners , otherwise you may resume any medications that we asked you to hold for your procedure. You may take mild pain medications, you can take acetaminophen (Tylenol), ibuprofen (Motrin, Advil,Nuprin, IB, etc) or aspirin as needed for pain, as long as your primary care doctor has indicated no restrictions. Diabetics be aware your blood sugar levels may increase due to the steroid used. Please call your PCP if you are concerned. Your procedure site may feel sore from the needles placed today. You can use ice to help relieve your symptoms, and it may be left on for 20 minutes at a time. Heat is not recommended as it may causemore swelling and pain. You may also have a flare of your symptoms after your injection. Please call back immediately should you develop: -signs of infection as listed above -increasingly severe neck or back pain -continued numbness or weakness in your arms if you had a neck injection, or in your legs if you had a back injection -loss of bladder/bowel control that is new or unusual *For symptoms listed above call immediately. Our phone number is , or after hours/weekends call [phone], ask them to page grain operations manager anesthesiologist. You will need to provide your return contact number and a doctor will call you back. If your doctor was Dr. Lindo or Dr. Oliva, and you have any of the above complaints and If afterhours or on the weekend, please call [facility] Provider Access line at , ask them to page the on-call Chronic Pain service, you will need to provide your return contact number and a doctor will call you back. 8. If you develop a Headache that is better when you lay down, please call to talk to an anesthesiologist. (After [phone]) 9. A nurse will call you tomorrow if you had one of the procedures listed: Facet Injection, Transforaminal Epidural Steroid Injection, SI Joint, Occipital Nerve Block, or a Peripheral Nerve Block: Please keep track of how you feel over the next 24 hours. We want to know if your regular pain has changed, and how long the pain relief lasts. Try to separate the injection site pain, from your normal pain. Having this information is an important part of your care, keep track of your results with the information below. Significant functional relief = functional improvement: Y__ N__ (Can you do your daily activities any easier? What activities can you do with less pain?) Current Pain: Scale: (1-10) Number of hours of pain relief in first 24 hours 10. A nurse will call you in 3 weeks as part of your follow-up care, it is important that we speak with you. We will want to hear how you are doing. Please keep track of your pain and you daily activities over the next few weeks and note any improvements or changes. Having this information is an important part of your care. If you were sedated for the procedure: Do not drive any vehicle or operate any power equipment until tomorrow. Do not drink any alcohol or take narcotics unless prescribed. Do not make any important decisions today. Please have someone with you today. If you are unable to have someone with you, please have someonecall you 3-4 times today. documented in this encounter Medications at Time [...] documented in this encounter Progress Notes * Clark Oliva MD - 11/03/2022 0830 EDT Patient Name: Diogo Martinez : 1970 Date of Service: 11/03/22 Television Actor: Clark Oliva MD Byproducts Extractor: None Procedure: Therapeutic cervical epidural steroid injection at C7-T1 Interval History: Diogo Martinez primarily localizes the pain at his neck and upper extremity. Please refer to Hattie Powell's previous note for full details regarding the patient's pain complaint. The patient reports no recent changes in the character, quality, or distribution of the pain. Thereare no recent onset of new associated symptoms such as changes in strength, sensation, or bladder control. All previous medical records including current medications, anticoagulation status, any signs of current infection, and new imaging were reviewed. Injection History: 11/03/2022: C7-T1 KATELYNN 05/13/2022: lumbar radiofrequency ablation at L4, L5, SA on the right 04/15/2022: lumbar radiofrequency ablation at L4, L5, SA on the??left 03/31/2022: L4, L5, SA MBBs bilaterally: 80% relief >12 hours 03/18/2022: L4, L5, SA MBBs??bilaterally: 80% relief > 12 hours Allergies: Allergies Allergen Reactions ??? Cortisone Insomnia Steroids ??? Erythromycin Nausea And Vomiting Patient Vitals for the past 24 hrs: BP Temp Temp src SpO2 Height Weight 11/03/22 0745 137/89 36.7 ??C (98 ??F) Oral 99 % 170.2 cm (67) 77.1 kg (170 lb) Physical Exam: Vitals: BP 137/89 (BP Cuff Location: Right arm) Temp 36.7 ??C (98 ??F) (Oral) Ht 170.2 cm (67) Wt 77.1 kg (170 lb) SpO2 99% BMI 26.63 kg/m?? General: Patient is alert and oriented, no acute distress Lungs: symmetric chest rise, no evidence of labored breathing Skin: clear, warm, dry and intact and no rashes, bruises or petechiae noted Assessment: 1. Radiculopathy, cervical region 2. Right cervical radiculopathy Plan: Mr. Diogo Martinez is a 52 y.o. male that presents to the pain clinic to undergo cervical epidural steroid injections in regards to his chronic neck pain. All risks, benefits, and alternatives were thoroughly explained to Mr. Diogo Martinez who verbally communicated understanding of the management plan. I have independently reviewed the relevant imaging and plan to proceed with therapeutic KIM C7-T1 Follow up With orthopedic spine. We are available for additional injections as needed. PROCEDURE: The patient gave informed written consent to proceed with this procedure following a detailed discussion of the risks and benefits associated with cervical epidural steroid injection including but not limited to infection, bleeding, headache, intrathecal injection, allergic reaction, further exacerb ation of current symptoms, neurological injury, and lack of efficacy.. The patient was then placed in the prone position, the skin over the cervical and thoracic areas was prepped with chlorhexadine,and the site was marked and draped with sterile towels. Strict sterile technique was maintained throughout the procedure. A timeout was performed with full staff present to identify the patient, verify the procedure being performed, and review allergies. Fluoroscopy was used to identify the C7-T1 disc space. The skin and subcutaneous tissue over this level was anesthetized by injection of 1% lidocaine. An 18 guage touhy needle was inserted under fluoroscopic guidance by coaxial technique and advanced towards the interspace. Loss of resistance with normal saline was used to find the epidural space. One pass was required and there was no paresthesia. Contrast dye was injected under live fluoroscopy demonstrating a typical epidural pattern with noevidence of intravascular or intrathecal injection. After negative aspiration, 80 mg Depo-Medrol and 1 ml Normal Saline were injected. The needle was then flushed and withdrawn. Fluoroscopic spot imag es were saved during the procedure. The patient tolerated the procedure well, there were no apparent complications, and he was discharged in stable condition. Written and verbal discharge instructions were reviewed with the patient prior to discharge. Clark Oliva MD documented in this encounter OR Notes * Preprocedure Instructions - Padmini Adame RN - 11/03/2022 0830 EDT Phone call related to scheduling appointment. Appointment scheduled with on 11-03-2022, please arrive at 730am, located at [facility] . Reminded patient of the following items: -Patient must have a driver lifter of sanitation truck to be present at drop off and fish bait picker for their appointment. They may not [...] not be able to perform steroid injection. *Last AIC patient reports was 6.4 If blood sugars are running high, they should contact their PCP to discuss management before their appointment. Procedures may require an adjustment to current medications, which include vitamins or supplements. -We require written approval from your prescribing provider (primary care doctor, neurologist or physical integration practitioner) before stopping anticoagulation medication (this includes ASPIRIN). Procedural Safety Medications and Fasting Instructions as applicable, lists exceptions below: Patient is aware that our protocol is 7 DAY HOLD FOR ASPIRIN- this was not on his medication list, so he is aware that we need PCP approval for Aspirin hold. Advised that we would contact his PCP forurgent request. Will follow-up with patient once approval received. Aware last dose would be 10-26-2022 if approved. HOLD Ibuprofen x 24 hours, last dose 2022 Continue all other medications as prescribed. Due to fasting for procedure, Patient will wait to take oral diabetic agents until he is home and can eat, which is plan he has developed with his PCP. Patient advised to call our clinic: -If [...] witha nurse. Directions and clinic phone number [phone] were provided to patient as needed. * Preprocedure Instructions - Nyla Kingsley - 11/03/2022 0830 EDT Called pt to confirm that we had received approval to hold ASA from PCP, pt confirmed last dose October 26, 2022. documented in this encounter Miscellaneous Notes * Addendum Note - Tiarra Greco RN - 11/03/2022829 EDTEncounter addended by: Tiarra Greco RN on: 11/03/2022 9:14 Actions taken: Check Out activity completed, Flowsheet accepted * Addendum Note - Nyla Kingsley - 11/03/2022829 EDTEncounter addended by: Nyla Kingsley RN on: 11/25/2022 12:29 Actions taken: Contacts section saved, Flowsheet accepted * Addendum Note - Kristen Farias RN - 11/03/2022829 EDTEncounter addended by: Kristen Farias, LAVONNE on: 11/29/2022 9:29 Actions taken: Contacts section saved * Addendum Note - Yanci Mccrary, RN - 11/03/2022 0830 EDTEncounter addended by: Yanci Mccrary RN on: 12/06/2022 8:24 Actions taken: Contacts section saved, Flowsheet accepted documented in this encounter Plan of Treatment Scheduled Orders Name Type Priority Associated Diagnoses Orde r Schedule EPIDURAL STEROID INJECTION ON THE SPINE WITH FLUOROSCOPY Procedures Routine Right cervical radiculopathy 1 Occurrences starting 11/03/2022 until 11/03/2022 documented as of this encounter Procedures Procedure Name Priority Date/Time Associated Diagnosis Comments POCT GLUCOSE, INTERFACED Routine 11/03/2022 8:04 EDT documented in this encounter Results * (ABNORMAL) POCT GLUCOSE, INTERFACED (11/03/2022 8:04 EDT) [facility] Glucose, POC 153(H) 70 - 100 mg/dL 11/03/2022 8:08 EDT [facility] HN LAB POC COMMENT (GLUCOSE) Test Performed in SDS 11/03/2022 8:08 EDT [facility] Blood CAPILLARY BLOOD / Unknown 11/03/2022 8:04 EDT 11/03/2022 8:08 EDT us Clark Oliva MD POINT OF CARE TEST ORDERABLES F inal Result [facility] [address] [place] [id number] documented in this encounter Visit Diagnoses Diagnosis Radiculopathy, cervical region- Primary Brachial neuritis or radiculitis nos Right cervical radiculopathy Brachial neuritis or radiculitis nos documented in this encounter Administered Medications Inactive Administered Medications - up to 3 most recent administrations Medication Order MAR Action Action Date Dose Rate Site iohexoL (OMNIPAQUE 300) injection 2 mL 2 mL, epidural, NOW X1, 1 dose, On Faith 11/03/22 at 0830, Routine, Intraprocedure Given by Other 11/03/2022 8:37 EDT 2 mL methylPREDNISolone ACETATE (DEPO-MEDROL) injection 80 mg 80 mg, epidural, NOW X1, 1 dose, On Faith 11/03/22 at 0830, Routine, Intraprocedure Given by Other 11/03/2022 8:41 EDT 80 mg documented in this encounter Discontinued Medications Medication Sig Discontinue Reason Start Date End Da te aspirin 325 mg tablet AFTER indomethacin ss complete, take 1 tab aspirin daily for 14 days. Alternate therapy 07/19/2022 10/26/2022 documented as of this encounter Historical Medications * This list may reflect changes made after this encounter. ibuprofen (MOTRIN) 200 mg tabletIndications :pain Take 4 Tablets by mouth at bedtime as needed for Pain. aspirin 81 mg EC tablet Take 1 Tablet by mouth daily. added in this encounter Care Teams Biodiesel Product Development Manager Relationship Specialty Start Date End Date Yesenia Morales NP [address] [place] [id number] PCP - General 06/14/21 documented as of this encounter
--- OUTSIDE RECORDS SUMMARY | 2024-08-01 21:57 | XMS_ITS | Encounter Summary ---
Author Organization [facility] Address [address] [place] [address] Care Team Providers Care Geospatial Intelligence Analyst Name Role Phone CarlineYesenia trejo MOHAN Primary Care Provider [phone] Reason for Visit * Auth/Cert Specialty Diagnoses / Procedures [facility] Referred To Contact Diagnoses Left hip pain Left hip pain [M25.552] Procedures OR HIP SCOPE/REMV BODY,SYNOVECTOMY OR HIP SCOPE/REMV BODY,PLASTY/RESECTN OR ARTHROSCOPY HIP W/FEMOROPLASTY ARTHROSCOPY, HIP, SURGICAL; W/SYNOVECTOMY CHONDROPLASTY, HIP, ARTHROSCOPIC ARTHROSCOPY HIP W/ FEMOROPLASTY Referral ID Status Reason Start Date Expiration Date Visits Re quested Visits Authorized [id number] 1 1 Encounter Details Date Type Department Care Team (Late st Contact Info) Description 07/19/2022 7:33 EST Anesthesia Event [facility] Operating Room [address] [place] [id number] Baylee Gibson MD [address] [place] [phone] Keenan Vela MD [address] [place] [phone] Anesthesia Record Procedure Summary Procedure Name Responsible Anesthesiologist Anesthesia Start Time Anesthesia Stop Time ARTHROSCOPY, HIP, SURGICAL; W/SYNOVECTOMY (Left: Hip) Baylee Gibson MD 07/19/22 0733 07/19/22 0906 Events Date Time Event Comment 07/19/2022 0733 An Start The patient was re-evaluated immediately before moderate or deep sedation use, before anesthesia induction, or before the anesthesia procedure. 0733 An Start Data 0739 An Induction The patient was reevaluated immediately before moderate or deep sedation use and before anesthesia induction. 0744 An Intubation 0759 Anesthesia Ready 0859 An Extubation 0859 an stop data 0906 Handoff to RN I completed my handoff to the receiving nurse during which we: 1. Identified the patient 2. Identified the responsible provider 3. Reviewed the pertinent medical history 4. Discussed the surgical course 5. Reviewed intra-op anesthesia management and issues during anesthesia 6. Set expectations for post-procedure period 7. Allowed opportunity for questions and acknowledgement of understanding. 0906 An Stop Meds Name Total dexaMETHasone (DECADRON) inj ection 4 mg/mL (for IV doses up to 10mg) 4 mg ePHEDrine vial 50 mg/mL 10 mg fentanyl citrate (PF) injection 100 mcg HYDROmorphone vial 2 mg/mL 1 mg ketAMINE 10 mg/mL vial 20 mg midazolam (versed) 1 mg/mL 2 mL vial 2 m g ondansetron (PF) (ZOFRAN) injection 4 mg lidocaine 2% (PF) injection glass vial 5 0 mg phenylephrine injection 320 mcg propOFol (DIPRIVAN) injection 200 mg rocuronium 10 mg/mL vial 90 mg sugammadex 100 mg/mL 2 mL vial 300 mg lactated ringers (LR) infusion Cannot be calculated ketOROLAC injection 30 mg ceFAZolin in dextrose 5 % (ANCEF) IVPB D UPLEX 2,000 mg 2,000 mg * Agents Name Insp Sevoflurane Exp Sevoflurane O2 N2O Air * Blood No blood administrations on file. Lines, Drains, and Airways Type Details Placement Removal Wound 07/19/22; 0810; Inci alisson; Left, Lateral; Hip; Arthroscopy ports x2; N 07/19/22 0810 by Syed Partida Peripheral IV 07/19/22; 0710; 20; Left, Posterior; Hand; Inserted by RN; 1; None; 2% Chlorhexidine with IPA; 07/19/22; 1038 07/19/22 0710 by Mikhail Powers RN 07/19/22 1038 by Kristen Farias RN Non-Surgical Airway 07/19/22; 0802 (crea roma via procedure documentation); 07/19/22; 0859 07/19/22 0802 by Baylee Gibson MD 07/19/22 0859 by Baylee Gibson MD documented in this encounter Social History Tobacco [...] OR Notes * Anesthesia Postprocedure Evaluation - Baylee Gibson MD - 07/19/2022 0906 EST Patient: Diogo Martinez Vital signs were reviewed with the recovery nurse. [facility] Vitals Value Taken Time BP 132/81 07/19/22 0905 Temp 07/19/22 0906 Resp 13 07/19/22 09 Pulse From Oximetry 80 BPM 07/19/22 09 SpO2 100 % 07/19/22 09 Heart Rate 80 BPM 07/19/22 09 Vitals shown include unvalidated device data. Last Pain Score - Numeric Pain Level (Scale 1-10): 3 Type of Anesthesia - general Anesthesia Post Evaluation Post-procedure vitals reviewed and are stable. Level of consciousness: awake Temperature status: normothermia Respiratory status: airway patent Cardiovascular status: acceptable Hydration status: adequate Nausea/Vomiting: none Pain management: adequate Post-Op Assessment: patient tolerated procedure well with no complications and patient satisfied with anesthesia care Patient participation: able to participate Disposition: outpatient/home Anesthesia Complications: No apparent anesthesia complications * Anesthesia Procedure Notes - Baylee Gibson MD - 07/19/2022 0801 EST Associated Order(s): Airway Airway Date/Time: 07/19/2022 7:44 Urgency: elective Airway not difficult General Information and Staff Patient location during procedure: OR Anesthesiologist: Baylee Gibson MD Performed: anesthesiologist Indications and Patient Condition Indications for airway management: anesthesia Sedation level: GA Preoxygenated: yes Patient position: sniffing Ventilation assessment: 1 - Easy Final Airway Details Final airway type: endotracheal airway Successful airway: ETT Cuffed: yes Successful intubation technique: video laryngoscopy Acosta Facilitating devices/methods: intubating stylet Endotracheal tube insertion site: oral Blade: Karri Blade size: #4 ETT size (mm): 7.5 Cormack-Lehane Classification: grade I - full view of glottis Placement verified by: chest auscultation and capnometry Cuff volume (mL): 5 Measured from: lips Number of attempts at approach: 1 Number of other approaches attempted: 1 * Anesthesia Preprocedure Evaluation - Baylee Gibson MD - 07/15/2022 1441 EST Anesthesia Preprocedure Evaluation Patient Medical History, including Anesthesia History reviewed. Chart and Nursing Notes reviewed, including NPO status and Medication History. Additional ROS/History Findings: No current facility-administered medications on file prior to encounter. Current Outpatient Medications on File Prior to Encounter Medication Sig Dispense Refill ??? acetaminophen (TYLENOL) 500 mg tablet Take 1,000 mg by mouth as needed for Pain. ??? amitriptyline (ELAVIL) 10 mg tablet 100 mg at bedtime. ??? aspirin 325 mg tablet Take 325 mg by mouth daily. (Patient not taking: Reported on 07/04/2022) ??? atorvastatin (LIPITOR) 40 mg tablet Take 40 mg by mouth every evening. ??? blood glucose meter by not applicable route. ??? BLOOD SUGAR DIAGNOSTIC, DISC MISC by not applicable route. ??? diphenhydrAMINE-acetaminophen 25-500 mg tablet Take 2 Tablets by mouth. Most nights ??? empagliflozin (JARDIANCE) 10 mg tablet Take 10 mg by mouth daily. ??? lancets by not applicable route. ??? LOW-DOSE ASPIRIN ORAL Take 81 mg by mouth daily. ??? melatonin 10 mg capsule Take 10 mg by mouth at bedtime. (Patient not taking: Reported on 05/13/2022) ??? metFORMIN (GLUCOPHAGE-XR) 500 mg ER tablet Take 1,000 mg by mouth 2 times daily. ??? methocarbamoL (ROBAXIN) 500 mg tablet Take 500 mg by mouth if needed. 1-2 tabs up to 2 times a day (Patient not taking: No sig reported) ??? pregabalin (LYRICA) 200 mg capsule Generally BID ??? terbinafine HCL (LAMISIL) 250 mg tablet daily. No current facility-administered medications for this encounter. Current Outpatient Medications Medication ??? acetaminophen (TYLENOL) 500 mg tablet ??? amitriptyline (ELAVIL) 10 mg tablet ??? aspirin 325 mg tablet ??? atorvastatin (LIPITOR) 40 mg tablet ??? blood glucose meter ??? BLOOD SUGAR DIAGNOSTIC, DISC MISC ??? celecoxib (CELEBREX) 100 mg capsule ??? cyclobenzaprine (FLEXERIL) 10 mg tablet ??? diclofenac (CATAFLAM) 50 mg tablet ??? diphenhydrAMINE-acetaminophen 25-500 mg tablet ??? empagliflozin (JARDIANCE) 10 mg tablet ??? ergocalciferol, vitamin D2, (VITAMIN D ORAL) ??? lancets ??? LOW-DOSE ASPIRIN ORAL ??? melatonin 10 mg capsule ??? metFORMIN (GLUCOPHAGE-XR) 500 mg ER tablet ??? methocarbamoL (ROBAXIN) 500 mg tablet ??? pregabalin (LYRICA) 200 mg capsule ??? terbinafine HCL (LAMISIL) 250 mg tablet Allergies Allergen Reactions ??? Cortisone Insomnia Steroids ??? Erythromycin Nausea And Vomiting Past Medical History: Diagnosis Date ??? Back pain H/O alcohol use disorder, quit 2019 Chronic back pain Relevant Problems No relevant active problems Past Surgical History: Procedure Laterality Date ??? KNEE SURGERY Left repair ??? LIPOMA RESECTION 04/10/2021 back of skull ??? NASAL SEPTUM SURGERY as teen ager Past Anesthetics [] No history of complications from anesthesia [] No anesthesia records on file []No family history of allergic reactions to anesthesia Review of Systems SOCIAL HISTORY: Social History Tobacco Use Smoking Status Every Day ??? Packs/day: 0.75 ??? Types: Cigarettes ??? Start date: 03/14/1988 Smokeless Tobacco Never Tobacco Comments not there yet Social History Substance and Sexual Activity Drug Use Yes ??? Types: Marijuana Comment: daily prior to bed Social History Substance and Sexual Activity Alcohol Use Not Currently Comment: quit one year ago after pancreatitis Lab Results Component Value Date GLUCOSEPOC 100 04/15/2022 No results found for: WBC, HGB, HCT, MCV, PLT No results found for: NA, K, KEXT, CL, CLEXT, CO2, CO2EXT No results found for: BUN No results found for: CREATININE, CREATININEEX No results found for: INR, PROTIME No results found for: PTT UPT: [] Patient declines test No results found for: PREGUR COVID: [] None on file Lab Results Component Value Date COVIDUV Negative 12/26/2019 Blood Type: No results found for: ABO, LABRH, LABANTI, SPECEXP EKG: [] N/A ECHO: [] N/A Cardiac Stress: [] N/A Ht 170.2 cm (67) Wt 77.1 kg (170 lb) BMI 26.63 kg/m?? Pulse From Oximetry: -- Physical Exam Airway Mallampati: II TM distance: >3 FB Neck ROM: limited Cardiovascular Rhythm: regular Rate: normal Dental Comments: Many carious teeth Pulmonary Breath sounds clear to auscultation Abdominal - normal exam Anesthesia Plan ASA 3 Anesthesia Type - general Block for post-op pain? Yes Post procedure pain management: fascia iliaca prn pacu. PAT Note Notes from 06/15/22 through 07/15/22 No notes of this type exist for this encounter. documented in this encounter Plan of Treatment Not on file documented as of this encounter Procedures Procedure Name Priority Date/Time Associated Diagnosis Comments ANESTHESIA INTUBATION Routine 07/19/2022 7:44 EST documented in this encounter Results * OR AN ELECTIVE ENDOTRACHEAL AIRWAY (07/19/2022 7:44 EST) Narrative [facility] - 07/19/2022 7:44 EST Baylee Gibson MD ? 07/19/2022 ??8:02 Airway Date/Time: 07/19/2022 7:44 Urgency: elective Airway not difficult General Information and Staff Patient location during procedure: OR Anesthesiologist: Baylee Gibson MD Performed: anesthesiologist Indications and Patient Condition Indications for airway management: anesthesia Sedation level: GA Preoxygenated: yes Patient position: sniffing Ventilation assessment: 1 - Easy Final Airway Details Final airway type: endotracheal airway Successful airway: ETT Cuffed: yes Successful intubation technique: video laryngoscopy Acosta Facilitating devices/methods: intubating stylet Endotracheal tube insertion site: oral Blade: Karri Blade size: #4 ETT size (mm): 7.5 Cormack-Lehane Classification: grade I - full view of glottis Placement verified by: chest auscultation and capnometry Cuff volume (mL): 5 Measured from: lips Number of attempts at approach: 1 Number of other approaches attempted: 1 Baylee Gibson MD ANESTHESIA ORDERABLES Final Result [facility] documented in this encounter Visit Diagnoses Not on filedocumented in this encounter Administered Medications Inactive Administered Medications - up to 3 most recent administrations Medication Order MAR Action Action Date Dose Rate Site ceFAZolin in dextrose 5 % (ANCEF) IVPB DUPLEX 2,000 mg 2,000 mg, intravenous, Administer over 30 Minutes, PRE-OP ONCE, 1 dose, On Mon07/19/22 at 0700, Type of Therapy: Prophylaxis, Suspected Indication (Select all that apply): Surgical prophylaxis, Routine, Preprocedure Given 07/19/2022 7:59 EST 2,000 mg dexAMETHasone (DECADRON) injection intravenous, PRN, Starting on Mon07/19/22 at 0739, Until Mon07/19/22 at 0906, Routine, Anesthesia Intraprocedure Given 07/19/2022 7:39 EST 4 mg ePHEDrine injection intravenous, PRN, Starting on Mon07/19/22 at 0846, Until Mon07/19/22 at 0906, Routine, Anesthesia Intraprocedure Given 07/19/2022 8:46 EST 10 mg fentaNYL citrate (PF) injection intravenous, PRN, Starting on Mon07/19/22 at 0734, Until Mon07/19/22 at 0906, Routine, Anesthesia Intraprocedure Given 07/19/2022 7:34 EST 100 mcg HYDROmorphone (DILAUDUD) 2 mg/mL injection intravenous, PRN, Starting on Mon07/19/22 at 0807, Until Mon07/19/22 at 0906, Routine, Anesthesia Intraprocedure Given 07/19/2022 8:07 EST 1 mg ketAMINE (KETALAR) IV injection vial intravenous, PRN, Starting on Mon07/19/22 at 0734, Until Mon07/19/22 at 0906, Routine, Anesthesia Intraprocedure Given 07/19/2022 7:34 EST 20 mg ketOROLAC (TORADOL) injection intravenous, PRN, Starting on Mon07/19/22 at 0757, Until Mon07/19/22 at 0906, Routine, Anesthesia Intraprocedure Given 07/19/2022 7:57 EST 30 mg lactated ringers (LR) infusion intravenous, FA IP EQF CONTINUOUS PRN FOR ONE STEP MEDS, Starting on Mon07/19/22 at 0734, Until Mon07/19/22 at 0906, Routine, Anesthesia Intraprocedure New Bag 07/19/2022 7:34 EST lidocaine (PF) 20 mg/mL (2 %) injection intravenous, PRN, Starting on Mon07/19/22 at 0740, Until Mon07/19/22 at 0906, Routine, Anesthesia Intraprocedure Given 07/19/2022 7:40 EST 50 mg midazolam (PF) (VERSED) injection intravenous, PRN, Starting on Mon07/19/22 at 0734, Until Mon07/19/22 at 0906, Routine, Anesthesia Intraprocedure Given 07/19/2022 7:34 EST 2 mg ondansetron (PF) (ZOFRAN) injection intravenous, PRN, Starting on Mon07/19/22 at 0839, Until Mon07/19/22 at 0906, Routine, Anesthesia Intraprocedure Given 07/19/2022 8:39 EST 4 mg phenylephrine (ALYSSA-SYNEPHRINE) injection intravenous, PRN, Starting on Mon07/19/22 at 0751, Until Mon07/19/22 at 0906, Routine, Anesthesia Intraprocedure Given 07/19/2022 8:40 EST 80 mcg Given 07/19/2022 8:38 EST 80 mcg Given 07/19/2022 8:16 EST 80 mcg propOFol (DIPRIVAN) injection intravenous, PRN, Starting on Mon07/19/22 at 0740, Until Mon07/19/22 at 0906, Routine, Anesthesia Intraprocedure Given 07/19/2022 7:40 EST 200 mg rocuronium (ZEMURON) injection intravenous, PRN, Starting on Mon07/19/22 at 0757, Until Mon07/19/22 at 0906, Routine, Anesthesia Intraprocedure Given 07/19/2022 8:17 EST 20 mg Given 07/19/2022 7:57 EST 20 mg Given 07/19/2022 7:40 EST 50 mg sugammadex (BRIDION) injection intravenous, PRN, Starting on Mon07/19/22 at 0850, Until Mon07/19/22 at 0906, Routine, Anesthesia Intraprocedure Given 07/19/2022 8:50 EST 300 mg documented in this encounter Care Teams Geospatial Intelligence Analyst Relationship Specialty Start Date End Date Yesenia Morales NP [address] [place] [phone] PCP - General 06/14/21 documented as of this encounter
--- OUTSIDE RECORDS SUMMARY | 2024-08-01 21:57 | XMS_ITS | Encounter Summary ---
Author Organization [facility] Address [address] [place] [address] Care Team Providers Care Equipment Service Associate Name Role Phone CarlineYesenia trejo MOHAN Primary Care Provider [phone] Encounter Details Date Type Department Care Team (Latest Contact Info) Description 11/03/2022 Travel Social History Tobacco Use Types Packs/Day [...] on filedocumented in this encounter Care Teams Equipment Service Associate Relationship Specialty Start Date End Date Yesenia Morales NP [address] [place] [phone] PCP - General 06/14/21 documented as of this encounter
--- OUTSIDE RECORDS SUMMARY | 2024-08-01 21:57 | XMS_ITS | Encounter Summary ---
Author Organization [facility] Address [address] [place] [address] Care Team Providers Care Accounting Machine Operator Name Role Phone CarlineYesenia trejo MOHAN Primary Care Provider [phone] Encounter Details Date Type Department Care Team (Latest Contact Info) Description 08/29/2022 Travel Social History Tobacco Use Types Packs/Day [...] on filedocumented in this encounter Care Teams Accounting Machine Operator Relationship Specialty Start Date End Date Yesenia Morales NP [address] [place] [phone] PCP - General 06/14/21 documented as of this encounter
--- OUTSIDE RECORDS SUMMARY | 2024-08-01 21:57 | XMS_ITS | Encounter Summary ---
Author Organization [facility] Address [address] [place] [address] Care Team Providers Care Chilling Hood Operator Name Role Phone Yseenia Morales NP Primary Care Provider [phone] Encounter Details Date Type Department Care Team (Latest Contact Info) Description 05/25/2023 Travel Social History Tobacco Use Types Packs/Day [...] on filedocumented in this encounter Care Teams Chilling Hood Operator Relationship Specialty Start Date End Date Yesenia Morales NP [address] [place] [phone] PCP - General 06/14/21 documented as of this encounter
--- OUTSIDE RECORDS SUMMARY | 2024-08-01 21:57 | XMS_ITS | Encounter Summary ---
Author Organization [facility] Address [address] [place] [address] Care Team Providers Care Stock Clerk Name Role Phone Yesenia Morales NP Primary Care Provider [phone] Reason for Referral * Consult (Routine/Next Available) - Closed Specialty Diagnoses / Procedures Referred By Sajan calix Referred To Contact Orthopedic Surgery Diagnoses Bilateral carpal tunnel syndrome Nadir Silveira MD Phone: tel: fax: [facility] [address] [place] [address] Phone: tel: fax: Referral ID Status Reason Start Date Expiration Date V isits Requested Visits Authorized [id number] Closed Specialty Services Required 11/04/2022 1 1 Question Answer Reason for Request: bilateral CTS, EMG confirmed Reason for Visit * Reason Comments EMG (Electomyography) * Consult, Test and Treat (Routine) - Authorization Not Required Specialty Diagnoses / Procedures Referred By Sajan calix Referred To Contact Diagnoses Cervical disc disorder at C5-C6 level with radiculopathy Procedures EMG/NERVE CONDUCTION STUDY Rigo Lnid MD Phone: tel: fax: [facility] [address] [place] [address] Phone: tel: fax: Referral ID Status Reason Start Date Expiration Date Visits Requested Visits Authorized [id number] Authorization Not Required 1 1 Encounter Details Date Type Department Care Team (Latest Contact Info) Description 11/04/2022 15:00 EDT Procedure visit [facility] [address] [place] [address] Nadir Silveira MD [address] [facility] [address] [place] [address] Bilateral carpal tunnel syndrome (Primary Dx); Cervical radiculopathy Social History Tobacco Use Types Packs/Day Years [...] 05/11/2021 16:02 EDT documented in this encounter Procedure Notes * Nadir Silveira MD - 11/04/[address] [facility] Clinical Neurophysiology Nerve Conduction and Electromyography Report PATIENT NAME: Diogo Martinez PATIENT : 1970 PCP: Yesenia Morales NP DATE OF SERVICE: 11/04/2022 History: Diogo Martinez is a 52 y.o. male who presents to EMG on referral by Rigo Lind MD for evaluation of left arm symptoms. He describes numbness and tingling in the right anterior forearm and upper arm,and into the thumb and index fingers. He used to have similar symptoms on the left which now come only rarely. Clinical Exam: Limbs studied were warmed if necessary with moist heat, and skin temperature of the hands was measured at 33 deg C before starting the study. Motor : Normal bulk bilaterally in the hands and arms. 5/5 strength bilaterally with thumb abduction, finger spreading, wrist supination and pronation, elbow flexion and shoulder abduction. There may be verysubtle right triceps weakness compared to left. DTRs: 2/4 bilateral brachioradialis, trace only at the bilateral biceps triceps Sensation: Intact pinprick in the hands and arms Electrodiagnostic Findings: Nerve Conduction: -The right median sensory peak latency was prolonged (4.4 ms, as was the transcarpal latency, with diminished amplitude (6 ??V). The right median motor onset latency was prolonged (5.0 ms) with normal amplitude and velocity. -The left median sensory peak latency was prolonged (4.4 ms) as was the transcarpal latency, with diminished amplitude (11 ??V). The left median motor onset latency was prolonged (4.8 ms) with normalamplitude and velocity. -The right ulnar sensory and motor responses were normal. -The right radial superficial sensory response was normal. EMG: -Mild chronic reinnervation was seen in the right biceps, triceps, pronator teres and first dorsal interosseous. The right deltoid and extensor indicis proprius were normal. The right cervical paraspinal musculature did not show evidence of active denervation. -The left first dorsal interosseous showed mild chronic reinnervation. The left deltoid, biceps, triceps, pronator teres and cervical paraspinal musculature were all normal. For waveforms/values/tables of EMG/nerve conduction study please see accompanying scanned document in the scans tab in EMR. Electrodiagnostic Impression: - This study was abnormal. 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 No evidence of active denervation. The isolated chronic reinnervation in the left first dorsal interosseous might be consistent with mild chronic C8 or T1 radiculopathy or remote ulnar neuropathy without any other localizing features to identify the source. Clinical Impression: -It is difficult when there is more than 1 electrodiagnostic finding that might line up symptomatically to know which is the culprit for someone symptoms. Considering there is evidence of axonal lossin the sensory component of both median nerves at the wrist I suggested a first course of action might be to try to adjust the median neuropathy at his wrists since the surgical treatment for that isvery simple and straightforward. He was interested and I sent a referral to [facility] orthopedics. If this does not resolve in any improvement in his symptoms that might reinforce cervical radiculopathy as the etiology. Nadir Silveira MD documented in this encounter Plan of Treatment Scheduled Referrals Name Type Priority Associated Diagnoses Order Schedule AMB CONS/FOLLOW UP ORTHOPEDICS - [facility] Outpatient Referral Routine/Next Available Bilateral carpal tunnel syndrome Expected: 12/04/2022 (Approximate), Expires: 11/05/2023 documented as of this encounter Visit Diagnoses Diagnosis Bilateral carpal tunnel syndrome- Primary Carpal tunnel syndrome Cervical radiculopathy Brachial neuritis or radiculitis nos documented in this encounter Care Teams Stock Clerk Relationship Specialty Start Date End Date Yesenia Morales NP [address] [place] [phone] PCP - General 06/14/21 documented as of this encounter
--- OUTSIDE RECORDS SUMMARY | 2024-08-01 21:57 | XMS_ITS | Encounter Summary ---
Author Organization [facility] Address [address] [place] [address] Care Team Providers Care Set Up Operator Name Role Phone Yesenia Morales NP Primary Care Provider [phone] Reason for Referral * Radiology Services (Routine/Next Available) - Authorization Not Required Specialty Diagnoses / Procedures Referred By Sajan calix Referred To Contact Diagnoses Pain in left hip Procedures [place] C-ARM WITH IMAGES Tyler Brown MD Phone: tel: fax: [facility] [place] Referral ID Status Reason Start Date Expiration Date Visits Requested Visits Authorized [id number] Authorization Not Required 2 1 1 Reason for Visit * Auth/Cert Specialty Diagnoses / Procedures [facility] Referred To Contact Diagnoses Left hip pain Left hip pain [M25.552] Procedures [place] HIP SCOPE/REMV BODY,SYNOVECTOMY WI HIP SCOPE/REMV BODY,PLASTY/RESECTN [place] ARTHROSCOPY HIP W/FEMOROPLASTY ARTHROSCOPY, HIP, SURGICAL; W/SYNOVECTOMY CHONDROPLASTY, HIP, ARTHROSCOPIC ARTHROSCOPY HIP W/ FEMOROPLASTY Referral ID Status Reason Start Date Expiration Date Visits Re quested Visits Authorized [id number] 1 1 Encounter Details Date Type Department Care Team (Latest Contact Info) Description 07/19/2022 - 07/19/2022 6:18 EST Hospital Encounter [facility] Xray [address], [place] [address] Pain in left hip Discharge Disposition: Home or Self Care Social [...] suspected to have Coronavirus/COVID-19? No / Unsure 07/14/2022 18:56 EST documented as of this encounter Functional [...] 10/19/19 24 documented as of this encounter Discharge Disposition Disposition Code Departure Means Destination Home or Self Care documented in this encounter Plan of Treatment Not on file documented as of this encounter Procedures Procedure Name Priority Date/Time Associated Diagnosis Comments FL C-ARM WITH IMAGES Routine 07/19/2022 11:27 EST Pain in left hip documented in this encounter Results * FL C-ARM WITH IMAGES (07/19/2022 11:27 EST) Narrative 07/19/2022 11:28 EST This is a non-reportable exam. us Tyler Brown MD IMG FLUOROSCOPY ORDERABLES Final Result documented in this encounter Visit Diagnoses Diagnosis Pain in left hip Pain in joint, pelvic region and thigh documented in this encounter Care Teams Set Up Operator Relationship Specialty Start Date End Date Yesenia Morales NP [address] [place] [address] PCP - General 06/14/21 documented as of this encounter
--- OUTSIDE RECORDS SUMMARY | 2024-08-01 21:57 | XMS_ITS | Encounter Summary ---
Author Organization [facility] Address [address] [place] [address] Care Team Providers Care Human Relations Manager Name Role Phone CarlineYesenia trejo MOHAN Primary Care Provider [phone] Reason for Visit * Reason Comments Back Pain Acute on Chronic low er back pain - L5 RFA 1 year ago // Was bending over at work and felt a sharp pain Encounter Details Date Type Department Care Team (Late st Contact Info) Description 05/25/2023 13:49 EDT - 05/25/2023 16:22 EDT Emergency [facility] Emergency Department [address] [place] [address] Danis Reeves MD Hare, Amos, PA-C [address] [place] [id number] Acute low back pain with left-sided sciatica, unspecified back pain laterality (Primary Dx) Discharge Disposition: Home or Self [...] Sign Reading Time Taken Comments Blood Pressure 110/62 05/25/2023 1600 EDT Pulse 85 05/25/2023 1600 EDT Temperature 36.3 ??C (97.4 ??F) 05/25/2023 1345 EDT Respiratory Rate 14 05/25/2023 1600 EDT Oxygen Saturation 96% 05/25/2023 1600 EDT Inhaled Oxygen Concentration - - Weight 72.6 kg (160 lb) 05/25/2023 1345 EDT Height 170.2 cm (5' 7) 05/25/2023 1345 EDT Body Mass Index 25.06 05/25/2023 1345 EDT [...] this encounter Discharge Instructions * Discharge Instructions* Eleno Goel PA-C - 05/25/2023 15:21 EDT You were seen today for low back pain. \ Your exam is reassuring. Your x-ray shows no acute fractures or acute abnormalities. We recommend activity as tolerated. Use ibuprofen combined with prednisone and the muscle relaxer to help alleviate your symptoms. However, brisk walks and movement are the best for improving your back pain. * Attachments The following attachments cannot be sent through Care Everywhere. * Low Back Pain: General Info (Yi) documented in this encounter Medications at Time [...] MOUTH EVERY DAY FOR PAIN 10/04/2022 4 diazePAM (VALIUM) 5 mg tablet Take 1 Tablet by mouth 2 times daily for 3 days. Daily Max: 10 mg 6 Tablet 05/25/2023 3 empagliflozin (JARDIANCE) 10 mg tablet Take 1 Tablet by mouth daily. 4 ergocalciferol, vitamin D2, (VITAMIN D ORAL) Take by mouth. weekly 4 predniSONE (DELTASONE) 20 mg tablet Take 2 Tablets by mouth daily for 5 days. 10 Tablet 05/25/2023 3 pregabalin (LYRICA) 200 mg capsule Generally BID 04/10/2021 4 documented as of this encounter Ordered Prescriptions Prescription Sig Dispense Quantity Refills Last Filled Start Date End Date predniSONE (DELTASONE) 20 mg tablet Take 2 Tablets by mouth daily for 5 days. 10 Tablet 05/25/2023 3 diazePAM (VALIUM) 5 mg tablet Take 1 Tablet by mouth 2 times daily for 3 days. Daily Max: 10 mg 6 Tablet 05/25/2023 3 documented in this encounter Discharge Disposition Disposition Code Departure Means Destination Comment s Home or Self Mcfp documented in this encounter ED Notes * Eleno Goel PA-C - 05/25/2023 1508 EDT Emergency Department Visit Medical Decision Making 52-year-old male presenting to the emergency department with complaints of low back pain rating down his left leg and into his left thigh. Denies any urinary or bowel incontinence. The symptoms are described as acute on chronic. Today as he was bending down looking into an oven he noticed the symptoms began. He was able to drive himself to the emergency department and did not attempt taking any medications prior to arrival to help alleviate his symptoms. On examination he is nontoxic-appearing and in mild distress. He has normal strength to bilateral lower extremities. Negative straight leg raise bilaterally. Brisk bilateral patellar tendon reflexes.Tenderness at midline of the lumbar spine. This prompted an x-ray of the lumbar spine. X-ray showedno acute abnormality other than mild to moderate lumbar spondylosis He was treated with IM Toradol, Valium and prednisone. On reevaluation he felt some improvement of his symptoms. Encourage close follow-up with PCP, Yesenia Morales. Encouraged brisk walks to help alleviate his symptoms. Given short course of Valium and prednisone for symptomatic relief. Relevant Data as of 05/25/23 1523 Faith May 25, 2023 1521 IMPRESSION ?? 1. Mild-moderate lumbar spondylosis. Please see detailed findings above. ?? 2. Advanced bilateral hip degenerative changes, only partially included on the [id number]. [AH] Relevant Data User Index [AH] Eleno Goel PA-C Medical Decision Making Acute low back pain with left-sided sciatica, unspecified back pain laterality: acute illness or injury Amount and/or Complexity of Data Reviewed Radiology: ordered. Risk Prescription drug management. Final diagnoses: Acute low back pain with left-sided sciatica, unspecified back pain laterality Disposition: No disposition on file Chief complaint: Back pain HPI Diogo Martinez is a 52 y.o. male with history of chronic low back pain who presents to the ED for an acute exacerbation of his low back pain. States he was at work today when he bent down to look inside of an oven when he felt a jolting pain in his left hip rating down his left leg. Describes the pain in his low back. Denies any incontinence of bladder or bowel. Denies any fevers or chills. Denies any saddle anesthesia. Has history of osteonecrosis of both hips, RFA procedure 1 year ago. History was provided by: Patient Records reviewed include: Dr. Palma note dated 12/20/2022 Patient's pertinent PMH, FH, SH were reviewed and edited as necessary. Nursing notes reviewed. A medical screening exam was performed. Physical Exam BP 126/79 (BP Cuff Location: Left arm, BP Patient Position: Sitting) Pulse 91 Temp 36.3 ??C (97.4 ??F) (Oral) Resp 20 Ht 170.2 cm (67) Wt 72.6 kg (160 lb) SpO2 98% BMI 25.06 kg/m?? Physical Exam Vitals and nursing note reviewed. Constitutional: General: He is not in acute distress. Appearance: Normal appearance. HENT: Head: Normocephalic and atraumatic. Nose: Nose normal. Mouth/Throat: Mouth: Mucous membranes are moist. Eyes: Extraocular Movements: Extraocular movements intact. Conjunctiva/sclera: Conjunctivae normal. Pupils: Pupils are equal, round, and reactive to light. Cardiovascular: Rate and Rhythm: Normal rate and regular rhythm. Heart sounds: Normal heart sounds. Pulmonary: Effort: Pulmonary effort is normal. No respiratory distress. Breath sounds: Normal breath sounds. Abdominal: General: Bowel sounds are normal. Palpations: Abdomen is soft. There is no mass. Tenderness: There is no abdominal tenderness. Musculoskeletal: General: No swelling or deformity. Normal range of motion. Cervical back: Normal range of motion and neck supple. Lumbar back: Tenderness present. Negative right straight leg raise test and negative left straight leg raise test. Comments: Brisk bilateral patellar tendon reflexes. Good strength to lower extremities. Skin: General: Skin is warm and dry. Neurological: General: No focal deficit present. Mental Status: He is alert and oriented to person, place, and time. Psychiatric: Mood and Affect: Mood normal. Behavior: Behavior normal. Procedures Procedures documented in this encounter Plan of Treatment Not on file documented as of this encounter Procedures Procedure Name Priority Date/Time Associated Diagnosis Comments XR LUMBAR SPINE 2-3 VIEWS STAT 05/25/2023 14:35 EDT documented in this encounter Results * XR LUMBAR SPINE 2-3 VIEWS (05/25/2023 14:35 EDT) Anatomical Region Laterality Modality Spine Radio Fluoroscop y 05/25/2023 14:5 2 EDT Impressions 05/25/2023 14:52 EDT 1. ??Mild-moderate lumbar spondylosis. Please see detailed findings above. 2. ??Advanced bilateral hip degenerative changes, only partially included on the [id number]. [id number] Narrative 05/25/2023 14:52 EDT XR LUMBAR SPINE 2-3 VIEWS ?? Signs and Symptoms/Comments: lumbar pain hx of spinal surgery; Comparison: Radiographs on 05/11/2021, 02/01/2021. MR on 06/14/2021. FINDINGS: Lumbar Spine: Upright AP and lateral views. Vertebral bodies: There are 5 lumbar type vertebral bodies. Alignment: Mild lumbar levoscoliosis measuring 6 degrees. Grade 1 retrolisthesis L1 on L2 and L5 on S1. Bones: No acute fracture identified. Degenerative changes: Mild-moderate multilevel discopathy and facet arthrosis, similar to 2020. SI joints: Mild bilateral sacroiliac degenerative changes. Other findings: Advanced bilateral hip degenerative changes, only partially included on the [id number]-gz-[id number]. Soft tissues: Unremarkable. Procedure Note Alex Mar MD - 05/25/2023 XR LUMBAR SPINE 2-3 VIEWS Signs and Symptoms/Comments: lumbar pain hx of spinal surgery; Comparison: Radiographs on 05/11/2021, 02/01/2021. MR on 06/14/2021. FINDINGS: Lumbar Spine: Upright AP and lateral views. Vertebral bodies: There are 5 lumbar type vertebral bodies. Alignment: Mild lumbar levoscoliosis measuring 6 degrees. Grade 1retrolisthesis L1 on L2 and L5 on S1. Bones: No acute fracture identified. Degenerative changes: Mild-moderate multilevel discopathy and facetarthrosis, similar to 2020. SI joints: Mild bilateral sacroiliac degenerative changes. Other findings: Advanced bilateral hip degenerative changes, onlypartially included on the [id number]-hp-[id number]. Soft tissues: Unremarkable. IMPRESSION 1. Mild-moderate lumbar spondylosis. Please see detailed findingsabove. 2. Advanced bilateral hip degenerative changes, only partially includedon the [id number]-ik-ydhf. [id number] Eleno Goel PA-C IMG DIAGNOSTIC IMAGING ORDERABLE S Final Result documented in this encounter Visit Diagnoses Diagnosis Acute low back pain with left-sided sciatica, unspecified back pain laterality- Primary documented in this encounter Administered Medications Inactive Administered Medications - up to 3 most recent administrations Medication Order MAR Action Action Date Dose Rate Site diazePAM (VALIUM) tablet 5 mg 5 mg, oral, NOW X1, 1 dose, On Faith 05/25/23 at 1445, STAT Given 05/25/2023 14:38 EDT 5 mg ketOROLAC (TORADOL) injection 15 mg 15 mg, intramuscular, NOW X1, 1 dose, On Faith 05/25/23 at 1445, STAT Given 05/25/2023 14:38 EDT 15 mg predniSONE (DELTASONE) tablet 40 mg 40 mg, oral, NOW X1, 1 dose, On Faith 05/25/23 at 1445, Routine Given 05/25/2023 14:38 EDT 40 mg documented in this encounter Active and Recently Administered Medications Times are shown in EDT. Scheduled Medication Order 05/23/2023 05/24/2023 05/25/2023 diazePAM (VALIUM) tablet 5 mg (COMPLETED) 5 mg, oral, NOW X1, 1 dose, On Faith 05/25/23 at 1445, STAT 1438 (Given - Provid er: Myrna Pabon RN) ketOROLAC (TORADOL) injection 15 mg (COMPLETED) 15 mg, intramuscular, NOW X1, 1 dose, On Faith 23 at 1445, STAT 1438 (Given - Provid er: Myrna Pabon RN) predniSONE (DELTASONE) tablet 40 mg (COMPLETED) 40 mg, oral, NOW X1, 1 dose, On Faith 23 at 1445, Routine 1438 (Given - Provid er: Myrna Pabon RN) documented in this encounter Care Teams Human Relations Manager Relationship Specialty Start Date End Date Yesenia Morales NP [address] [place] [phone] PCP - General 06/14/21 documented as of this encounter
--- OUTSIDE RECORDS SUMMARY | 2024-08-01 21:57 | XMS_ITS | Encounter Summary ---
Author Organization [facility] Address [address] [place] [address] Care Team Providers Care Web Development Instructor Name Role Phone CarlineYesenia trejo MOHAN Primary Care Provider [phone] Encounter Details Date Type Department Care Team (Latest Contact Info) Description 07/14/2022 Travel Social History Tobacco Use Types Packs/Day [...] on filedocumented in this encounter Care Teams Web Development Instructor Relationship Specialty Start Date End Date Yesenia Morales NP [address] [place] [phone] PCP - General 06/14/21 documented as of this encounter
--- OUTSIDE RECORDS SUMMARY | 2024-08-01 21:57 | XMS_ITS | Encounter Summary ---
Author Organization [facility] Address [address] [place] [address] Care Team Providers Care Wood Room Supervisor Name Role Phone Carlinemaya Yesenia MOHAN Primary Care Provider [phone] Encounter Details Date Type Department Care Team (Late st Contact Info) Description 07/12/2023 Results Only [facility] - [facility] [address] [place] [address] Nisha Cook PA [address] [place] [address] Social History Tobacco Use Types Packs/Day Years [...] Procedure Name Priority Date/Time Associated Diagnosis Comments LIPID PROFILE (INCLUDES CHOLESTEROL, TRIGLYCERIDES, HDL, LDL) Routine 07/12/2023 7:27 EST documented in this encounter Results * (ABNORMAL) LIPID PROFILE (INCLUDES CHOLESTEROL, TRIGLYCERIDES, HDL, LDL) (07/12/2023 7:27 EST) Pathologist [facility] Cholesterol 140.00 0.00 - 200.00 mg/dL [facility] dHDL 45.00 40.00 - 60.00 mg/dL [facility] Triglycerides 408.00(H) 0.00 - 150.00 mg/dL [facility] Comment:TRIGLYCERIDES >400 m g/dL, LDL CALCULATION NOT VALID 07/12/2023 7:27 EST Nisha VELARDE CHEMISTRY & BLOOD GAS ORDERAB LES Final Result [facility] [address] [place] [address] documented in this encounter Visit Diagnoses Not on filedocumented in this encounter Care Teams Wood Room Supervisor Relationship Specialty Start Date End Date Yesenia Morales NP [address] [place] [phone] PCP - General 06/14/21 documented as of this encounter
--- OUTSIDE RECORDS SUMMARY | 2024-08-01 21:58 | XMS_ITS | Encounter Summary ---
Author Organization [facility] Address [address] [place] [address] Care Team Providers Care Operator Bearer Systems Name Role Phone CarlineYesenia trejo MOHAN Primary Care Provider [phone] Encounter Details Date Type Department Care Team (Latest Contact Info) Description 09/16/2021 Travel Social History Tobacco Use Types Packs/Day Years Used Date Smoking Tobacco: Every Day Cigarettes Smokeless Tobacco: Never Alcohol Use Standard Drinks/Week Comments Not Currently 0 (1 standard drink = 0.6 oz pure alcohol) quit one year ago after pancreatitis Sex and Gender Information Value Date Recorded Sex Assigned at Male 07/02/2024 10:33 EST Legal Sex Male 17:50 EST Gender Identity Male 05/11/2021 15:39 EDT Sexual Orientation Not on file COVID-19 Exposure Response Date Recorded In the last month, have you been in contact with someone who was confirmed or suspected to have Coronavirus / COVID-19? No / Unsure 09/16/2021 15:36 EST documented as of this encounter Functional [...] on filedocumented in this encounter Care Teams Operator Bearer Systems Relationship Specialty Start Date End Date Yesenia Morales NP [address] [place] [address] PCP - General 06/14/21 documented as of this encounter
--- OUTSIDE RECORDS SUMMARY | 2024-08-01 21:58 | XMS_ITS | Encounter Summary ---
Author Organization [facility] Address [address] [place] [address] Care Team Providers Care Vp Of Customer Experience Strategy Name Role Phone CarlineYesenia trejo MOHAN Primary Care Provider [phone] Encounter Details Date Type Department Care Team (Latest Contact Info) Description 03/22/2022 Travel Social History Tobacco Use Types Packs/Day [...] suspected to have Coronavirus/COVID-19? No / Unsure 03/22/2022 16:12 EDT documented as of this encounter Functional [...] on filedocumented in this encounter Care Teams Vp Of Customer Experience Strategy Relationship Specialty Start Date End Date Yesenia Morales NP [address] [place] [phone] PCP - General 06/14/21 documented as of this encounter
--- OUTSIDE RECORDS SUMMARY | 2024-08-01 21:58 | XMS_ITS | Encounter Summary ---
Author Organization [facility] Address [address] [place] [address] Care Team Providers Care Metal Burrer Name Role Phone CarlineYesenia trejo MOHAN Primary Care Provider [phone] Encounter Details Date Type Department Care Team (Latest Contact Info) Description 03/14/2022 Travel Social History Tobacco Use Types Packs/Day [...] suspected to have Coronavirus/COVID-19? No / Unsure 03/14/2022 10:37 EDT documented as of this encounter Functional [...] on filedocumented in this encounter Care Teams Metal Burrer Relationship Specialty Start Date End Date Yesenia Morales NP [address] [place] [phone] PCP - General 06/14/21 documented as of this encounter
--- OUTSIDE RECORDS SUMMARY | 2024-08-01 21:58 | XMS_ITS | Encounter Summary ---
Author Organization [facility] Address [address] [place] [address] Care Team Providers Care Distillation Operator Helper Name Role Phone CarlineYesenia trejo MOHAN Primary Care Provider [phone] Reason for Visit * Reason Onset Date Comments Appointment Related 10/18/2021 Encounter Details Date Type Department Care Team (Late st Contact Info) Description 10/18/[address] [facility] - [facility] [address] [place], [place] [id number] Tyler Brown MD [address] [facility] [address] [place] [address] Appointment Related Social History Tobacco Use Types Packs/Day Years [...] suspected to have Coronavirus/COVID-19? No / Unsure 10/13/2021 15:50 EDT documented as of this encounter Functional [...] encounter Miscellaneous Notes * Telephone Encounter - Vinita Wild MA - 10/18/2021 1053 EDT Called and left message with patient to call and schedule an appointment with Dr. Brown in 1-2 weeks. OK to double book documented in this encounter Plan of Treatment Not on file documented as of this encounter Visit Diagnoses Not on filedocumented in this encounter Care Teams Distillation Operator Helper Relationship Specialty Start Date End Date Yesenia Morales NP [address] [place] [phone] PCP - General 06/14/21 documented as of this encounter
--- OUTSIDE RECORDS SUMMARY | 2024-08-01 21:58 | XMS_ITS | Encounter Summary ---
Author Organization [facility] Address [address] [place] [address] Care Team Providers Care Section Cutter Name Role Phone Yesenia Morales NP Primary Care Provider Reason for Referral * Referral (Routine/Next Available) - Closed Specialty Diagnoses / Procedures [facility] Referred To Contact Pain Medicine Diagnoses Facet arthropathy, lumbar Lumbar pain Procedures MEDIAL BRANCH BLOCK Hattie Powell NP Phone: tel: fax: [facility] [address] [place] [id number] Phone: tel: Referral ID Status Reason Start Date Expiration Date Visits Re quested Visits Authorized [id number] Closed 09/20/2021 1 1 Reason for Visit * Auth/Cert Specialty Diagnoses / Procedures [facility] Referred To Contact Referral ID Status Reason Start Date Expiration Date Visits Re quested Visits Authorized [id number] 1 1 Encounter Details Date Type Department Care Team (Latest Contact Info) Description 03/18/2022 11:32 EDT - 03/18/2022 11:33 EDT Hospital Encounter [facility] [address], [place] [address] Clark Oliva MD [address] [place] [phone] Spondylosis without myelopathy or radiculopathy, lumbar region (Primary Dx); Facet arthropathy, lumbar; Lumbar pain Discharge Disposition: Home or Self Care Social History Tobacco Use Types Packs/Day Years Used Date Smoking Tobacco: Every Day Cigarettes 0.8 36.4 Started: 03/14/1988 Smokeless Tobacco: Never Tobacco Cessation:Ready to Q uit: Yes; Counseling Given: Yes Comments:not there yet Alcohol Use Standard Drinks/Week [...] 16:12 EDT documented as of this encounter Last Filed Vital Signs Vital Sign Reading Time Taken Comments Blood Pressure 136/88 03/18/2022 1228 EDT Pulse - - Temperature 37.1 ??C (98.8 ??F) 03/18/2022 1151 EDT Respiratory Rate 16 03/18/2022 1228 EDT Oxygen Saturation 100% 03/18/2022 1228 EDT Inhaled Oxygen Concentration - - Weight 79.7 kg (175 lb 11.3 oz) 03/18/2022 1151 EDT Height 168.9 cm (5' 6.5) 03/18/2022 1151 EDT Body Mass Index 27.94 03/18/2022 1151 EDT documented in this encounter Functional Status [...] this encounter Discharge Instructions * Discharge Instructions* Mikhail Powers RN - 03/18/2022 12:28 EDT [facility] [address] [id number] Medial Branch/Genicular Nerve Block Patient Instructions Bilateral L4-L5-SA Medial Branch Block ??? Today you underwent a procedure called a Medial Branch Block or Genicular Nerve Block. This procedure is a diagnostic injection to determine whether or not the area injected is the source of yourpain. ??? For your safety, you need to have someone drive you home today. Please do not drive a car or any motorized equipment for the rest of today. ??? It can take 15-60 minutes after your injection for the long acting local anesthetic (numbing medicine) to begin working. For a number of hours following your procedure, the area injected should be numb. ??? After you leave your appointment, do not go home and rest or lay down. We want you to perform afew activities that would normally cause your typical pain symptoms to identify if you have pain relief. Try to separate the needle discomfort, pressure and tightness caused from this procedure from your regular pain. ??? Do not take any pain medication during this time, as it may mask your results. Once your normalpain has returned, you may resume any pain medication that you take, including NSAIDs (Non-steriod Anti-inflammatory drugs). ??? It is important to pay attention to the number of hours of pain relief that you had, and also the percentage of relief you experience during those hours. ??? Please remember that your medial branch block is only a test and your regular pain usually returns within 24 hours - it is not intended to work for days or weeks. Use the section below to keep track of your results. Having this information is an important part of your care. A nurse will call you tomorrow, or if your procedure is on Monday, the nurse will call you on Monday to review these results. PROCEDURE END TIME:____12:23 (to be completed by the nurse) PAIN RELIEF START TIME: PAIN RELIEF END TIME: HOURS OF RELIEF % OF RELIEF (0--100%) ACTIVITES THAT WERE EASIER FOR YOU TO PERFORM DURING HOURS OF PAIN RELIEF: (examples: walking, sitting, standing, bending, lifting, twisting) Additional Instructions ??? Tomorrow you may resume your normal activity or rest. ??? If you are having soreness from the needle placed, we recommend you use ice which can be used for 20 minutes at a time. We do not recommend that you use heat, as it can increase swelling and pain. ??? Please ask your doctor when you can restart your blood thinners , otherwise you may resume any medications that we asked you to hold for your procedure. ??? Remove the bandage(s) today or tomorrow. If you develop any signs of infection, redness, warmth, bleeding, swelling, or drainage, or if you have a fever (greater than 101 degrees) that is not relieved by Tylenol, or chills along with these symptoms, call our office immediately at . ??? If you develop increasingly severe neck or back pain, continued numbness or weakness in your arms for neck injection, or legs for back injection, or loss of bladder/bowel control, call immediately . ??? If you have any of the above complaints and If after hours or on the weekend, please call [facility] Provider Access line at , ask them to page the on-call Chronic Pain service, you willneed to provide your return contact number and a doctor will call you back. documented in this encounter Medications at Time of Discharge acetaminophen (TYLENOL) 500 mg tablet Take 1,000 mg by mouth as needed for Pain. amitriptyline (ELAVIL) 10 mg tablet 10 Tablets at bedtime. 10/13/202 1 atorvastatin (LIPITOR) 40 mg tablet Take 1 Tablet by mouth every evening. 1 blood glucose meter by not applicable route. 0 BLOOD SUGAR DIAGNOSTIC, DISC MISC by not applicable route. 0 diphenhydrAMINE-mckinley taminophen 25-500 mg tablet Take 2 [...] 14 days. 14 Tablet 2 10/27/19 23 aspirin 325 mg tablet Take 325 mg by mouth daily. 1 07/19/20 22 diclofenac (CATAFLAM) 50 mg tablet TAKE ONE TABLET BY MOUTH TWO TIMES A DAY NEEDED FOR PAIN TAKE WITH FOOD 2 07/19/20 22 empagliflozin (JARDIANCE) 10 mg tablet Take 1 Tablet by mouth daily. 10/19/19 24 ergocalciferol, vitamin D2, (VITAMIN D ORAL) Take by mouth. weekly 08/28/19 24 ibuprofen (MOTRIN) 200 mg tablet 4 tab(s) orally 3 times a day PRN 07/13/20 22 indomethacin (INDOCIN) 25 mg capsule Take 3 Capsules by mouth daily for 10 days. Take 75 mg once daily for 10 days after surgery 30 Capsule 2 07/29/19 23 LOW-DOSE ASPIRIN ORAL Take 81 mg by mouth daily. 07/19/20 22 methocarbamoL (ROBAXIN) 500 mg tablet Take 1 Tablet by mouth 4 times daily as needed for Pain or Muscle Spasms. 30 Tablet 2 12/21/19 23 methocarbamoL (ROBAXIN) 500 mg tablet Take 500 mg by mouth if needed. 1-2 tabs up to 2 times a day 07/19/20 22 ondansetron (ZOFRAN-ODT) 4 mg disintegrating tablet Take [...] Progress Notes * Clark Oliva MD - 03/18/2022 1230 EDT Patient Name: Diogo Martinez : 1970 Date of Service: 03/18/2022 Sample Washer: Clark Oliva MD Rug Drying Machine Operator: None Procedure: Diagnostic medial branch blocks at lumbar L4, L5, SA bilaterally Interval History: Patient presents today with primary complain of chronic lower back pain. Please refer to [...] and new imaging were reviewed. Injection History: 03/18/2022: L4, L5, SA MBBs bilaterally Allergies: Allergies Allergen Reactions ??? Cortisone Insomnia Steroids ??? Erythromycin Nausea And Vomiting Physical Exam: Vitals: BP 134/86 (BP Cuff Location: Right arm) Temp 37.1 ??C (98.8 ??F) (Oral) Resp 16 Ht 168.9 cm (66.5) Wt 79.7 kg (175 lb 11.3 oz) SpO2 100% BMI 27.94 kg/m?? General: Patient is alert and oriented, no acute distress Lungs: symmetric chest rise, no evidence of labored breathing Skin: clear, warm, dry and intact and no rashes, bruises or petechiae noted Lumbar Spine: Positive facet loading Assessment: 1. Spondylosis without myelopathy or radiculopathy, lumbar region 2. Facet arthropathy, lumbar 3. Lumbar pain Plan: Mr. Diogo Martinez is a 51 y.o. male that presents to the pain clinic to undergo diagnostic medial branch blocks in regards to his chronic back pain. All risks, benefits, and alternatives were thoroughly explained to Mr. Diogo Martinez who verbally communicated understanding of the management plan. I have independently reviewed the relevant imaging and plan to proceed with diagnostic medial branch blocks Follow up: Via telephone for results of diagnostic blocks Procedure: The patient gave informed written consent to proceed with this procedure following a detailed discussion of the risks and benefits associated with lumbar medial branch blocks including but not limited to infection, bleeding, headache, further exacerbation of current symptoms, neurological injury, and lack of efficacy. The patient was then placed in prone position, the skin over the lumbar region was prepped with chlorhexadine, and the site was marked and draped with sterile towels. Strict sterile technique was maintained throughout the procedure. A time out was performed with full staff present to identify the patient, verify the procedure being performed, and review allergies Flouroscopy was used to identify the appropriate lumbar anatomy. The skin and subcutaneous tissue were anesthetized with 1% lidocaine. A 22 guage 3.5 inch spinal needle was inserted under fluoroscopic guidance to contact the junction of the superior articulating process and transverse process at the Lt L4, Rt L4, Lt L5, Rt L5, Lt Sacral Ala and Rt Sacral Ala levels. Final needle position was confirmed with fluoroscopy. Aspiration was negative for blood or CSF. Next, 0.4 ml of 0.5% bupivacaine was injected at each site, the needles were restyletted and withdrawn. There was no paresthesia during needle placement and aspiration was negative at all times. The patient tolerated the procedure well and there were no apparent complications. Written and verbal discharge instructions were reviewed with the patient prior to discharge. They will report the results of today???s diagnostic injection via telephone within 24 hours Please refer to nursing flowsheets for pre and post pain scores. Clark Oliva MD 03/18/2022 11:58 * Mikhail Powers RN - 03/18/2022 0730 EDT Tolerated procedure very well.Verbalizes good understanding of all d/c instructions as presented. Ambulatory to the ER where is otr company driver is, assisted by nurse standing by. Left, in stable and good condition documented in this encounter OR Notes * Preprocedure Instructions - Kristen Farias RN - 03/18/2022 1230 EDT Phone call related to scheduling appointment. Appointment scheduled with on 03/18/22. Reminded patient of the following items: -Patient must have a otr company driver to be present at drop off and pickle maker for their appointment. -Patient needs to arrive 60 minutes ahead of procedural start time. -Patient must be infection free and off antibiotics for 14 days prior to appointment with written clearance from MD, also no active or open wounds. -Patient must contact clinic if any recent exposure to known positive Covid with or without symptoms. -All vaccines should be 2 weeks before or after procedures that involve steroids. -Patient should not have had any oral steroids or other steroid injections within the past 4-6 weeks. -If patient is diabetic, inform them that if their blood sugar is greater than 250mg/dL the day of procedure, we will not be able to perform steroid injection. If blood sugars are running high, they should contact their PCP to discuss management before their appointment. -If patient is on coumadin, pt will need to get order from prescribing provider or PCP to have blood draw for PT/INR before appointment. Pain Clinic providers will not accept fingerstick results. -Please arrive with clean skin, do not apply any lotions, perfumes, creams or lidocaine patches. Please wear loose fitting, comfortable clothing, with elastic waistband if possible. -Procedural Safety Medications and Fasting Instructions as applicable, list exceptions below: Instructed patient to not taking any medications to mask their back pain until their normal pain returns after the medial branch block. Patient advised to call our clinic if they develop any new symptoms, concerns for infection, skin issues, or the need to reschedule their appointment. If they have any questions regarding medication holds, they should contact the clinic to speak withnurse. Directions and clinic phone number [phone] were provided to patient as needed. documented in this encounter Miscellaneous Notes * Addendum Note - Yanci Mccrary RN - 03/18/2022 1133 EDTEncounter addended by: Yanci Mccrary, RN on: 03/21/2022 8:53 Actions taken: Contacts section saved, Flowsheet accepted * Addendum Note - Padmini Adame RN - 03/18/2022 1133 EDTEncounter addended by: Padmini Adame RN on: 03/22/2022 12:07 Actions taken: Contacts section saved documented in this encounter Plan of Treatment Scheduled Orders Name Type Priority Associated Diagnoses Orde r Schedule MEDIAL BRANCH BLOCK Procedures Routine Facet arthropathy, lumbar Lumbar pain 1 Occurrences starting 03/18/2022 until 03/18/2022 documented as of this encounter Visit Diagnoses Diagnosis Spondylosis without myelopathy or radiculopathy, lumbar region- Primary Facet arthropathy, lumbar Lumbosacral spondylosis without myelopathy Lumbar pain Lumbago documented in this encounter Administered Medications Inactive Administered Medications - up to 3 most recent administrations Medication Order MAR Action Action Date Dose Rate Site bupivacaine (PF) (MARCAINE) 0.5% injection 3 mL 3 mL, marla-neural, NOW X1, 1 dose, On Mon03/18/22 at 1230, Routine, Intraprocedure Given by Other 03/18/2022 12:20 EDT 3 mL Linda k documented in this encounter Orders Medications Ordered That Ki ht Not Have Been Administered Count Last Ordered Date First Ordered Date bupivacaine (PF) (MARCAINE) 0.5% injection 3 mL 1 03/18/2022 documented in this encounter Care Teams Section Cutter Relationship Specialty Start Date End Date Yesenia Mroales NP [address] [place] [id number] PCP - General 06/14/21 documented as of this encounter
--- OUTSIDE RECORDS SUMMARY | 2024-08-01 21:58 | XMS_ITS | Encounter Summary ---
Author Organization [facility] Address [address] [place] [address] Care Team Providers Care Outbound Sales Specialist Name Role Phone Yesenia Morales NP Primary Care Provider [phone] Reason for Referral * Referral (Routine/Next Available) - Closed Specialty Diagnoses / Procedures Referred By Contac t Referred To Contact Pain Medicine Diagnoses Facet arthropathy, lumbar Lumbar pain Procedures RADIOFREQUENCY ABLATION Hattie Powell NP Phone: tel: fax: [facility] [address] [place] [address] Phone: tel: Referral ID Status Reason Start Date Expiration Date Visits Re quested Visits Authorized [id number] Closed 09/20/2021 1 1 * Referral (Routine/Next Available) - Closed Specialty Diagnoses / Procedures Referred By Contac t Referred To Contact Pain Medicine Diagnoses Facet arthropathy, lumbar Lumbar pain Procedures MEDIAL BRANCH BLOCK Hattie Powell NP Phone: tel: fax: [facility] [address] [place] [address] Phone: tel: Referral ID Status Reason Start Date Expiration Date Visits Re quested Visits Authorized [id number] Closed 09/20/2021 1 1 * Referral (Routine/Next Available) - Closed Specialty Diagnoses / Procedures Referred By Contac t Referred To Contact Pain Medicine Diagnoses Facet arthropathy, lumbar Lumbar pain Procedures RADIOFREQUENCY ABLATION Hattie Powell NP Phone: tel: fax: [facility] [address] [place] [address] Phone: tel: Referral ID Status Reason Start Date Expiration Date Visits Re quested Visits Authorized [id number] Closed 09/20/2021 1 1 * Referral (Routine/Next Available) - Closed Specialty Diagnoses / Procedures Referred By Sajan calix Referred To Contact Pain Medicine Diagnoses Facet arthropathy, lumbar Lumbar pain Procedures MEDIAL BRANCH BLOCK Hattie Powell NP Phone: tel: fax: [facility] [address] [place] [address] Phone: tel: Referral ID Status Reason Start Date Expiration Date Visits Re quested Visits Authorized [id number] Closed 09/20/2021 1 1 Reason for Visit * Reason Comments Follow-up Encounter Details Date Type Department Care Team (Late st Contact Info) Description 09/16/2021 15:45 EST Office Visit [facility] [address], [address] [place] [address] Hattie Powell NP [address] [facility] [place] [id number] Radicular syndrome of left leg (Primary Dx); Left hip pain; Osteonecrosis of both hips (HCC-CMS) (HCC); Facet arthropathy, lumbar; Lumbar pain Social History Tobacco Use Types Packs/Day Years [...] 15:36 EST documented as of this encounter Last Filed Vital Signs Vital Sign Reading Time Taken Comments Blood Pressure 128/68 09/16/2021 1539 EST Pulse 95 09/16/2021 1539 EST Temperature - - Respiratory Rate - - Oxygen Saturation 96% 09/16/2021 1539 EST Inhaled Oxygen Concentration - - Weight - - Height - - Body Mass Index - - documented in this encounter Functional Status * [...] documented in this encounter Progress Notes * Hattie Powell NP - 09/16/2021 1545 EST Medical Decision Making Diogo is a 50 y.o. male seen in evaluation for his neck pain which has been present for approximately 3 to 4 weeks and axial low back pain. His previously reported left hip and lower extremity pain has been improved after left intra- articular hip injection. Today, I discussed with the patient that he could reasonably consider moving forward with medial branch blocks and progression of radiofrequency ablation of the lower lumbar facets spanning L4-S1 to see if this could mitigate his pain. With respect to his neck pain, this is been present for approximately 3 to 4 weeks and initially, I would recommend a course of physical therapy to see if this could mitigate his symptoms. If he does not have any significant improvement, we could reasonably discuss injection treatments but I would like tosee how he does with for conservative modalities initially. Patient is amenable to the above and I will see him back once this is completed. I spent a total of 30 minutes on the date of this encounter meeting with the patient and reviewing documentation/coordinating care as described in this note. No procedure was performed at today's visit. Imaging/Test Review On the day of this encounter, I reviewed a SPECT bone scan of the lumbar spine, hips and pelvis demonstrating some increased radiotracer uptake within the right and left L4-5 facets. There is some additional uptake noted within the bilateral hips suggestive of osteoarthritis there is also notable bilateral femoral head osteonecrosis but no significant radiotracer uptake. I also reviewed an MRI of the lumbar spine completed on 06/14/2021 demonstrating some moderate bilateral lateral recess and foraminal stenosis at L4-5 with a trace facet joint effusion on the left. Additionally, there is somemild to moderate foraminal stenosis at L3-4. Imaging was reviewed by me. Diagnosis 1. Radicular syndrome of left leg 2. Left hip pain 3. Osteonecrosis of both hips (HCC-CMS) (HCC) 4. Facet arthropathy, lumbar MEDIAL BRANCH BLOCK RADIOFREQUENCY ABLATION MEDIAL BRANCH BLOCK RADIOFREQUENCY ABLATION 5. Lumbar pain MEDIAL BRANCH BLOCK RADIOFREQUENCY ABLATION MEDIAL BRANCH BLOCK RADIOFREQUENCY ABLATION Plan 1. Medial branch block with progression RFA L4-S1 2. Physical therapy for neck pain 3. Follow-up with me when the above is completed WALT Lind is a 50 y.o. male last seen by me on 06/22/2021 and at that time, he was seen for a chief complaint of low back pain radiating to the left lower extremity with some additional reports of bilateral hip discomfort on the left greater than right. 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 His MRI was also notable for moderate bilateral lateral recess stenosis at L4-5. At the time of our last visit, I discussed with the patient that I have reviewed the case with our general orthopedic surgeon Dr. Cristino Hernandez MD who recommended holding off on an intra-articular hip injection if, in fact, the patient was interested in exploring his potential surgical options for the avascular necrosis of the hip. After shared decision-making, the patient was hopeful to hold off on a hip replacement for as long as possible on requested to move forward with intra-articular hip injection. He was educated that if hip replacement were to be considered, he would need to wait 3 months after the injection toconsider moving forward with this. He also reported some radicular complaints to the left lower extremity most closely correlating with an L5 distribution and given the notable lateral recess stenosis bilaterally at L4-5, we also discussed moving forward with a left L4-5 epidural injection. The marlene ent is following up with me today to discuss his response to the injections as well as to discuss further options for treatment. He has not yet had the L4-5 epidural injection. The patient does report that the left intra-articular hip injection completely improved his left hip pain as well as the radiating pain down into the left leg. He continues to endorse a significant amount of lower back pain that he feels is activity limiting. He also reports an additional complaintof 100% neck pain. He does seem to have some bilateral shoulder discomfort that has been present for approximately 3 to 4 weeks. He does have a history of left shoulder problems and he does not endorse any new radicular symptoms to the upper extremities. The patient's medical profile was reviewed and dated today. It contains a detailed past medical history, past surgical history, list of medications, allergies, social history and family medical history and was reviewed and updated in the EMR. reports that he has been smoking. He has been smoking about 0.75 packs per day. He has never used smokeless tobacco. He reports previous alcohol use. Conservative Treatment: Physical Therapy: The patient completed a full course of physical therapy and was discharged to home exercise program Home Exercise Program: He performs this daily as tolerated Medications: Meloxicam, Celebrex, Cymbalta, Tylenol, ibuprofen, gabapentin Other: None Injections: 1. Left intra-articular hip injection (07/09/2021)-resolution of left hip and radicular leg pain onthe left ROS A five-point review of systems was completed today and of note, pertinent positives and negatives are indicated in the HPI Physical Examination BP 128/68 Pulse 95 SpO2 96% Pain Ratin-6 General: Pleasant, cooperative, mood and affect are appropriate. Neuro: Alert and oriented to person, place, time and purpose. Posture: Upright Gait: Nonantalgic Palpation: There are no palpable masses, lesions or deformities. Skin: Intact with no stigmata of underlying disease. ROM: He has full range of motion of the cervical spine. Sensation: Grossly intact throughout all dermatomes of the upper extremities Strength: 5 out of 5 throughout Provocative Maneuvers: Positive facet loading maneuvers with increased pain on extension and rotation CC: Primary Care Provider: Yesenia Morales NP [address] [facility] [phone] Referring Provider: Yesenia Morales NP DRAGON DICTATION WAS USED FOR NOTE COMPLETION. PLEASE EXCUSE ALL MISSPELLINGS AND PUNCTUATION ERRORS. AMINA Vargas 09/20/21 [facility] documented in this encounter Plan of Treatment Scheduled Orders Name Type Priority Associated Diagnoses Orde r Schedule MEDIAL BRANCH BLOCK Procedures Routine Facet arthropathy, lumbar Lumbar pain Expected: 09/27/2021 (Approximate), Expires: 09/20/2022 RADIOFREQUENCY ABLATION Procedures Routine Facet arthropathy, lumbar Lumbar pain Expected: 09/27/2021 (Approximate), Expires: 09/20/2022 MEDIAL BRANCH BLOCK Procedures Routine Facet arthropathy, lumbar Lumbar pain Expected: 09/27/2021 (Approximate), Expires: 09/20/2022 RADIOFREQUENCY ABLATION Procedures Routine Facet arthropathy, lumbar Lumbar pain Expected: 09/27/2021 (Approximate), Expires: 09/20/2022 documented as of this encounter Visit Diagnoses Diagnosis Radicular syndrome of left leg- Primary Thoracic or lumbosacral neuritis or radiculitis, unspecified Left hip pain Pain in joint, pelvic region and thigh Osteonecrosis of both hips ([facility]) Facet arthropathy, lumbar Lumbosacral spondylosis without myelopathy Lumbar pain Lumbago documented in this encounter Care Teams Outbound Sales Specialist Relationship Specialty Start Date End Date Yesenia Morales NP [address] [place] [address] PCP - General 06/14/21 documented as of this encounter
--- OUTSIDE RECORDS SUMMARY | 2024-08-01 21:58 | XMS_ITS | Encounter Summary ---
Author Organization [facility] Address [address] [place] [address] Care Team Providers Care Medical Instructor Name Role Phone CarlineYesenia trejo MOHAN Primary Care Provider [phone] Encounter Details Date Type Department Care Team (Late st Contact Info) Description 06/08/2022 Results Only [facility] Laboratory Services - [facility] [address] [place] [address] Rigo Lind MD [address] [place] [phone] Social History Tobacco Use Types Packs/Day Years [...] suspected to have Coronavirus/COVID-19? No / Unsure 05/13/2022 13:38 EDT documented as of this encounter Functional [...] Date/Time Associated Diagnosis Comments HEMOGLOBIN A1C Routine 06/08/2022 15:47 EST documented in this encounter Results * (ABNORMAL) HEMOGLOBIN A1C (06/08/2022 15:47 EST) HgB A1C% 6.4(H) 4.0 - 6.0 % [facility] Average Calculated 133(H) 60 - 115 mg/dL [facility] 06/08/2022 15:4 7 EST us Rigo Lind MD CHEMISTRY & BLOOD GAS ORDERABLES Final Result [facility] [address] [place] [address] documented in this encounter Visit Diagnoses Not on filedocumented in this encounter Care Teams Medical Instructor Relationship Specialty Start Date End Date Yesenia Morales NP [address] [place] [phone] PCP - General 06/14/21 documented as of this encounter
--- OUTSIDE RECORDS SUMMARY | 2024-08-01 21:58 | XMS_ITS | Encounter Summary ---
Author Organization [facility] Address [address] [place] [address] Care Team Providers Care Promotions Director Name Role Phone Yesenia Morales NP Primary Care Provider Reason for Referral * Radiology Services (Routine/Next Available) - Authorization Not Required Specialty Diagnoses / Procedures Referred By Sajan calix Referred To Contact Radiology Diagnoses Acute pain of both shoulders Neck pain Procedures MR CERVICAL SPINE WO CONTRAST Hattie Powell NP Phone: tel: fax: [facility] Referral ID Status Reason Start Date Expiration Date Visits Requested Visits Authorized [id number] Authorization Not Required 02/16/2022 1 1 Reason for Visit * Reason Comments Pain Pain Pain Pain Encounter Details Date Type Department Care Team (Late st Contact Info) Description 02/16/2022 10:00 EDT Office Visit [facility] Orthopedics & Spine Medicine [address], [address] [place], [place] [address] Hattie Powell NP [address] [place] [address] Acute pain of both shoulders (Primary Dx); Neck pain Social History Tobacco Use Types Packs/Day [...] suspected to have Coronavirus/COVID-19? No / Unsure 02/16/2022 10:02 EDT documented as of this encounter Last Filed Vital Signs Vital Sign Reading Time Taken Comments Blood Pressure - - Pulse - - Temperature - - Respiratory Rate - - Oxygen Saturation - - Inhaled Oxygen Concentration - - Weight 79.7 kg (175 lb 11.2 oz) 02/16/2022 1005 EDT Height - - Body Mass Index 27.93 09/03/2021 1515 EST documented in this encounter Functional Status [...] 05/11/2021 16:02 EDT documented in this encounter Patient Instructions * Patient Instructions* Hattie Powell NP - 02/16/2022 10:00 EDT I have ordered an MRI for you today at [facility]. The purpose of the MRI is too look at your discs and spinal nerves. documented in this encounter Progress Notes * Hattie Powell NP - 02/16/2022 1000 EDT [facility] Orthopedic Spine [phone] Medical Decision Making Diogo is a 51 y.o. male seen in evaluation for his Chief complaint of neck pain radiating to the bilateral shoulders that could potentially be associated with bilateral shoulder pathology versus a cervical radiculopathy at C6 and perhaps even C7. He has had 8 weeks of physical therapy and while he has had some improvement, he has plateaued and it has been recommended that he continue with his work-up. I discussed with the patient moving forward with an MRI at this point of the cervical spine to evaluate for any stenosis or cervical nerve impingement and the patient is amenable to this. There was some question as to whether or not he should also get an MRI of his bilateral shoulders and I advi sed the patient that should his cervical MRI demonstrate encouraging findings with no obvious nerveimpingement, we could explore a work-up for his bilateral shoulders with our general orthopedic department. The patient verbalizes understanding and we will see him back after his cervical MRI is completed. I spent a total of 25 minutes on the date of this encounter meeting with the patient and reviewing documentation/coordinating care as described in this note. No procedure was performed at today's visit. Imaging/Test Review On the day of this encounter, I reviewed??x-rays of the cervical spine demonstrating some degenerative disc changes at C5-6 with some additional degenerative facet arthropathy most advanced at C7-T1.No instability is noted on flexion versus extension. Imaging was reviewed by me. Diagnosis 1. Acute pain of both shoulders XR CERVICAL SPINE 4-5 VIEWS MR CERVICAL SPINE WO CONTRAST 2. Neck pain XR CERVICAL SPINE 4-5 VIEWS MR CERVICAL SPINE WO CONTRAST Plan 1. Cervical MRI 2. Follow-up when the above is completed WALT Lind is a 51 y.o. male last seen by me on 09/16/2021 and at that time, he was seen for a chief complaint of neck pain which had been present for approximately 3 to 4 weeks with some additional complaints of axial lower back pain. At the time the last visit, he reported left hip and lower extremity pain which was improved after left intra-articular hip injection. I discussed with the patient that he could reasonably consider moving forward with medial branch blocks with progression to radiofrequency ablation of the lower lumbar facets spanning L4-S1 to see if this could mitigate his pain. With respect to his neck pain, this was rather more acute and initially, I recommended a course of physical therapy to see if this could mitigate his discomfort. If no significant improvement with physicaltherapy treatment, we could reasonably discuss progression to advanced imaging and injection treatments but certainly, more conservative modalities initially would be reasonable to explore. More recently, he has been evaluated by Dr. Tyler Brown and Dr. Gilbert Macias MD for avascular necrosis of the bilateral hips. He has opted for an arthroscopic temporizing procedure with Dr. Tyler Brown on the left to see if this could mitigate his symptoms for a time. He has not yet had his medialbranch blocks/RFA of the lower lumbar facets. Since his last visit, the patient has been working with physical therapy. He the patient has completed an 8-week course of physical therapy and while the initial 8 weeks give him some improvement, hedid plateau and somewhat regressed and subsequently, his physical therapist recommended that he follow-up here for further work-up. The patient continues to endorse neck pain worsened with all range of motion with additional shoulder discomfort in the anterior and posterior aspect of the shoulder girdle. He also has some discomfort at the sternoclavicular joint. Symptoms are worsened with all range of motion activities. He does not necessarily describe a radicular symptom to his upper extremities below the elbow but certainly, in the upper aspect of his arms over the deltoid region and somewhat into the tricep. The patient's medical profile was reviewed and [...] previous alcohol use. Conservative Treatment: Physical Therapy: He completed full course of physical therapy since our last visit at [facility] in [place], [place] and was discharged home exercise program Home Exercise Program: Perform daily as tolerated Medications: Meloxicam, Celebrex, Cymbalta, Tylenol, ibuprofen, gabapentin Other: None Injections: 1. Left intra-articular hip injection (07/09/2021)-resolution of left hip and radicular left leg pain on the left ROS A five-point review of systems was completed today and of note, pertinent positives and negatives are indicated in the HPI Physical Examination Pain Score (from Vitals) 02/16/2022 Initial score - Final score 6 Location NECK Comment 8-9/10 at times Wt Readings from Last 1 Encounters: 02/16/22 79.7 kg (175 lb 11.2 oz) BMI Readings from Last 1 Encounters: 02/16/22 27.93 kg/m?? General: Pleasant, cooperative, mood and affect are appropriate. Neuro: Alert and oriented to person, place, time and purpose. Posture: Upright Gait: Nonantalgic Palpation: There are no palpable masses, lesions or deformities. Skin: Intact with no stigmata of underlying disease. ROM: Full with increased discomfort in all directions Sensation: Grossly intact throughout all dermatomes Strength: 5 out of 5 throughout all muscle groups of the bilateral upper extremities Provocative Maneuvers: Positive facet loading maneuvers with increased pain on extension and rotation in the cervical spine Kimberly Signs: 0/5 CC: Primary Care Provider: Yesenia Morales NP [address] [facility] [address] Referring Provider: Yesenia Morales NP DRAGON DICTATION WAS USED FOR NOTE COMPLETION. PLEASE EXCUSE ALL MISSPELLINGS AND PUNCTUATION ERRORS. AMINA Vargas 02/16/22 [facility] Orthopedic Spine and Neurosurgery documented in this encounter Plan of Treatment Not on file documented as of this encounter Procedures Procedure Name Priority Date/Time Associated Diagnosis Comments MR CERVICAL SPINE WO CONTAST Routine 03/17/2022 7:17 EDT Acute pain of both shoulders Neck pain XR CERVICAL SPINE 4-5 VIEWS Routine 02/16/2022 10:17 EDT Acute pain of both shoulders Neck pain documented in this encounter Results * MR CERVICAL SPINE WO CONTRAST (03/17/2022 7:17 EDT) Anatomical Region Laterality Modality Spine Magnetic Resonan ce 03/17/2022 12:1 4 EDT Impressions 03/17/2022 12:14 EDT Degenerative spondylosis of the cervical spine with varying degrees of neural foraminal stenosis as described above. Narrative 03/17/2022 12:14 EDT INDICATION: Cervical radiculopathy, no red flags. COMPARISON: Cervical spine radiograph 02/16/2022. TECHNIQUE: Noncontrast MRI scan of the cervical spine was performed. Sagittal T1, T2, bilateral sagittal oblique T2 and axial T1, T2 and gradient echo scans were obtained. FINDINGS: The retropharyngeal soft tissues are normal. Degenerative disc disease is present throughout the cervical spine with anterior disc osteophyte protrusions from C4 to T1. The cervical cord size and signal as well as cervicomedullary junction have normal appearances. No cervical myelopathy. No fracture or suspicious bone lesion. Disc levels: C2-C3: The C2-C3 disc and facet joints are unremarkable. C3-C4: The C3-C4 disc and facet joints are unremarkable. C4-C5: Right uncovertebral joint hypertrophy with mild narrowing of the right neural foramen. No spinal stenosis or cord impingement. C5-C6: Bilateral uncovertebral joint hypertrophy, or prominent on the left. Left posterolateral/foraminal disc protrusion. Moderate narrowing of the right neural foramen. Severe narrowing of the left neural foramen. C6-C7: Left uncovertebral joint hypertrophy with moderate narrowing of the left neural foramen. No disc herniation or spinal stenosis. C7-T1: Left uncovertebral joint hypertrophy with moderate narrowing of the left neural foramen. No disc herniation or spinal stenosis. Procedure Note Ilia Anrdew MD - 03/17/2022 INDICATION: Cervical radiculopathy, no red flags. COMPARISON: Cervical spine radiograph 02/16/2022. TECHNIQUE: Noncontrast MRI scan of the cervical spine was performed.Sagittal T1, T2, bilateral sagittal oblique T2 and axial T1, T2 andgradient echo scans were obtained. FINDINGS: The retropharyngeal soft tissues are normal. Degenerative disc disease ispresent throughout the cervical spine with anterior disc osteophyteprotrusions from C4 to T1. The cervical cord size and signal as well ascervicomedullary junction have normal appearances. No cervical myelopathy.No fracture or suspicious bone lesion. Disc levels: C2-C3: The C2-C3 disc and facet joints are unremarkable. C3-C4: The C3-C4 disc and facet joints are unremarkable. C4-C5: Right uncovertebral joint hypertrophy with mild narrowing of theright neural foramen. No spinal stenosis or cord impingement. C5-C6: Bilateral uncovertebral joint hypertrophy, or prominent on theleft. Left posterolateral/foraminal disc protrusion. Moderate narrowing ofthe right neural foramen. Severe narrowing of the left neural foramen. C6-C7: Left uncovertebral joint hypertrophy with moderate narrowing of theleft neural foramen. No disc herniation or spinal stenosis. C7-T1: Left uncovertebral joint hypertrophy with moderate narrowing of theleft neural foramen. No disc herniation or spinal stenosis. IMPRESSION Degenerative spondylosis of the cervical spine with varying degrees ofneural foraminal stenosis as described above. us Hattie Lindsay Powell NP IMG MRI ORDERABLES Final Resu lt * XR CERVICAL SPINE 4-5 VIEWS (02/16/2022 10:17 EDT) Anatomical Region Laterality Modality Left Computed Radiogr aphy 02/16/2022 11:1 4 EDT Impressions 02/16/2022 11:14 EDT 1. ??Mild-moderate cervical spondylosis. 2. ??Slight degenerative anterolisthesis of C3 on C4 and C4 on C5 on flexion, which reduces on extension. Narrative 02/16/2022 11:14 EDT XR CERVICAL SPINE 4-5 VIEWS ?? Signs and Symptoms/Comments: neck pain Comparison: None. FINDINGS: Cervical Spine: Upright AP, lateral, flexion and extension views were performed. Vertebral bodies: There are 7 cervical type vertebral bodies. Alignment: Mild reversal of the expected cervical lordosis on the lateral antral view. Slight degenerative anterolisthesis of C3 on C4 and C4 on C5 on flexion, which reduces on extension. Bones: No acute fracture identified. Degenerative changes: Mild-moderate degenerative disc disease, most advanced at C5-C6 and C6-C7. Mild facet arthrosis. Soft tissues: Unremarkable. Procedure Note Alex Mar MD - 02/16/2022 XR CERVICAL SPINE 4-5 VIEWS Signs and Symptoms/Comments: neck pain Comparison: None. FINDINGS: Cervical Spine: Upright AP, lateral, flexion and extension views wereperformed. Vertebral bodies: There are 7 cervical type vertebral bodies. Alignment: Mild reversal of the expected cervical lordosis on the lateralantral view. Slight degenerative anterolisthesis of C3 on C4 and C4 on C5on flexion, which reduces on extension. Bones: No acute fracture identified. Degenerative changes: Mild-moderate degenerative disc disease, mostadvanced at C5-C6 and C6-C7. Mild facet arthrosis. Soft tissues: Unremarkable. IMPRESSION 1. Mild-moderate cervical spondylosis. 2. Slight degenerative anterolisthesis of C3 on C4 and C4 on C5 onflexion, which reduces on extension. Hattie Powell NP IMG DIAGNOSTIC IMAGING ORDERA BLES Final Result documented in this encounter Visit Diagnoses Diagnosis Acute pain of both shoulders- Primary Neck pain Cervicalgia documented in this encounter Historical Medications * This list may reflect changes made after this encounter. ergocalciferol, vitamin D2, (VITAMIN D ORAL) Take by mouth. weekly 08/28/2023 diclofenac (CATAFLAM) 50 mg tablet TAKE ONE TABLET BY MOUTH TWO TIMES A DAY NEEDED FOR PAIN TAKE WITH FOOD 02/04/2022 07/19/2022 added in this encounter Care Teams Promotions Director Relationship Specialty Start Date End Date Yesenia Morales NP [address] [place] [address] PCP - General 06/14/21 documented as of this encounter
--- OUTSIDE RECORDS SUMMARY | 2024-08-01 21:58 | XMS_ITS | Encounter Summary ---
Author Organization [facility] Address [address] [place] [address] Care Team Providers Care Fur Matcher Name Role Phone CarlineYesenia trejo MOHAN Primary Care Provider [phone] Reason for Visit * Reason Onset Date Comments Appointment Related 09/22/2021 Encounter Details Date Type Department Care Team (Late st Contact Info) Description 09/22/2021 Telephone [facility] [facility] [address], [address] [place], [place] [id number] Verna Chawla, LAVONNE [address] [facility] [address] [place] [address] Appointment Related Social History Tobacco Use Types [...] Telephone Encounter - Verna Chawla RN - 09/24/2021 1329 EST Called and spoke with Mr. Martinez - appt made for 10/13/21. He does drive from [place], so has a littleover an hour commute and works until 2:00. * Telephone Encounter - Tyler Brown MD - 09/22/2021 1538 EST Happy to talk to him about it. It would likely be a debridement procedure rather than a repair, butif he understands that I'm happy to offer him a scope. Can be double booked. Thanks. * Telephone Encounter - Verna Chawla RN - 09/22/2021 1535 EST Secure message sent to Dr. Bronw to help determine timing for the appt. * Telephone Encounter - Verna Chawla RN - 09/22/2021 1535 EST ----- Message from Gilbert Macias MD sent at 09/17/2021 12:55 EST ----- ----- Message ----- From: Tyler Brown MD Sent: 09/04/2021 14:47 EST To: MD Phan Price, I took a look, agree with all your thoughts. I think there is a chance he could benefit on the left, although it's likely to progress to some degree afterwards. As long as he understands it might be relatively temporarily, I think it's reasonable to debride the joint, and see if that calcified labrum is mobile or has mobile elements and if sodebride those too. Happy to see him if his pain comes back. Not sure how he's doing on the other side, but that one looks too far gone for a scope Kelly ----- Message ----- From: Gilbert Macias MD Sent: 09/03/2021 16:10 EST To: Tyler Brown MD TORIBIO Not sure if you think there is anything that you could possibly do for his left hip pain. He has some evidence of AVN but also what appears to be a calcified labrum or some type of calcified loose body near the hip. He does have a history of heavy alcohol use but has not had anything to drink in over a year. I am not sure the left hip is ready for replacement. Right now he has excellent relief of his pain after a steroid injection in June. Would appreciate your thoughts. I told him not to get his hopes up but perhaps if you thought arthroscopy could benefit him, when his pain recurs I canhave him see you. Thanks, documented in this encounter Plan of Treatment Not on file documented as of this encounter Visit Diagnoses Not on filedocumented in this encounter Care Teams Fur Matcher Relationship Specialty Start Date End Date Yesenia Morales NP [address] [place] [phone] PCP - General 06/14/21 documented as of this encounter
--- OUTSIDE RECORDS SUMMARY | 2024-08-01 21:58 | XMS_ITS | Encounter Summary ---
Author Organization [facility] Address [address] [place] [address] Care Team Providers Care Sheet Combining Operator Name Role Phone Yesenia Morales NP Primary Care Provider [phone] Reason for Referral * Radiology Services (Routine/Next Available) - Authorization Not Required Specialty Diagnoses / Procedures Referred By Sajan calix Referred To Contact Diagnoses Facet arthropathy, lumbar Procedures FL C-ARM BLOCK/INJECTION IN CLINIC Clark Oliva MD Phone: tel: [place] [facility] Referral ID Status Reason Start Date Expiration Date Visits Requested Visits Authorized [id number] Authorization Not Required 04/14/2022 1 1 Reason for Visit * Auth/Cert Specialty Diagnoses / Procedures Referred By Sajan calix Referred To Contact Referral ID Status Reason Start Date Expiration Date Visits Re quested Visits Authorized [id number] 1 1 Encounter Details Date Type Department Care Team (Latest Contact Info) Description 04/15/2022 9:45 EDT - 04/15/2022 12:[address] [facility] [place] [address] [place] [address] Facet arthropathy, lumbar Discharge Disposition: Home or Self Care Social [...] suspected to have Coronavirus/COVID-19? No / Unsure 04/01/2022 13:31 EDT documented as of this encounter Functional [...] Comments FL C-ARM BLOCK/INJECTION IN CLINIC Routine 04/15/2022 13:44 EDT Facet arthropathy, lumbar documented in this encounter Results * FL C-ARM BLOCK/INJECTION IN CLINIC (04/15/2022 13:44 EDT) Narrative 04/15/2022 13:44 EDT This is a non-reportable exam. us Clark Oliva MD IMG FLUOROSCOPY ORDERABLES Yolis l Result documented in this encounter Visit Diagnoses Diagnosis Facet arthropathy, lumbar Lumbosacral spondylosis without myelopathy documented in this encounter Care Teams Sheet Combining Operator Relationship Specialty Start Date End Date Yesenia Morales NP [address] [place] [phone] PCP - General 06/14/21 documented as of this encounter
--- OUTSIDE RECORDS SUMMARY | 2024-08-01 21:58 | XMS_ITS | Encounter Summary ---
Author Organization [facility] Address [address] [place] [address] Care Team Providers Care Business Database Analyst Name Role Phone Yesenia Morales NP Primary Care Provider [phone] Reason for Visit * Reason Onset Date Comments Referral Request 09/20/2021 Encounter Details Date Type Department Care Team (Late st Contact Info) Description 09/20/2021 Telephone [facility] [place] [facility]ics & [facility] Medicine [address] [place] [address] Hattie Rizzo NP [address] [place] [address] [place] [address] Referral Request Social History Tobacco Use Types Packs/Day Years [...] encounter Miscellaneous Notes * Addendum Note - Hattie Rizzo NP - 09/20/2021 1200 ESTAddended by: HATTIE RIZZO on: 09/20/2021 12:00 Modules accepted: Orders * Telephone Encounter - Kathy Garrido RN - 09/20/2021 0957 EST T/C to patient to clarify what PT referral is for and what provider had recommended referral. Patient verbalized he and SB at his last appointment had discussed PT. -Confirmed this information with SB -Referral placed. * Telephone Encounter - Nola Rivera - 09/20/2021 0933 EST Patient called stating that on his last visit he was told he would get a referral for PT. I don't see one in the system however he would like to go to: [facility] Physical Therapy [address] [place] [id number] documented in this encounter Plan of Treatment Not on file documented as of this encounter Visit Diagnoses Diagnosis Acute pain of both shoulders- Primary Neck pain Cervicalgia documented in this encounter Care Teams Business Database Analyst Relationship Specialty Start Date End Date Yesenia Morales NP [address] [place] [phone] PCP - General 06/14/21 documented as of this encounter
--- OUTSIDE RECORDS SUMMARY | 2024-08-01 21:58 | XMS_ITS | Encounter Summary ---
Author Organization [facility] Address [address] [place] [address] Care Team Providers Care Software Administrator Name Role Phone Yesenia Morales NP Primary Care Provider [phone] Reason for Referral * Radiology Services (Routine/Next Available) - Closed Specialty Diagnoses / Procedures Referred By Sajan calix Referred To Contact Radiology Diagnoses Left hip pain Procedures MR HIP WO CONTRAST LEFT Tyler Brown MD Phone: tel: [place] [facility] [place]erral ID Status Reason Start Date Expiration Date Visits Re quested Visits Authorized [id number] Closed 11/03/2021 1 1 Reason for Visit * Reason Comments Follow-up Encounter Details Date Type Department Care Team (Late st Contact Info) Description 11/03/2021 16:45 EDT Office Visit [facility] [address], [address] [place] [address] Tyler Brown MD [address] [facility] [address] [place] [address] Left hip pain (Primary Dx) [...] suspected to have Coronavirus/COVID-19? No / Unsure 11/03/2021 16:39 EDT documented as of this encounter Functional [...] Progress Notes * Tyler Brown MD - 11/03/2021 9365 EDT The patient presents today for evaluation. Please see prior notes from my surgical partner for fullHPI. Specifically, we are evaluating the patient's left hip today. He reports pain is C sign distribution as well as lateral sided pain and posterior pain as well. 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 He is interested in possible arthroscopic treatment as a temporizing procedure. He does realize that the arthritis will likely advance, but he would like a symptomatic relief at this time as nonoperative management has not improved his symptoms over the last months to years. A 10-point review of systems has been reviewed from the new patient intake sheet and all are negative unless noted above. History reviewed. No pertinent past medical history. Social History Tobacco Use ??? Smoking status: Current Every Day Smoker Packs/day: 0.75 ??? Smokeless tobacco: Never Used Substance Use Topics ??? Alcohol use: Not [...] Pain. ??? amitriptyline (ELAVIL) 10 mg tablet 3-5 tabs nightly ??? aspirin 325 mg tablet Take 325 mg by mouth daily. (Patient not taking: Reported on 10/13/2021) ??? atorvastatin (LIPITOR) 40 mg tablet Take 40 mg by mouth every evening. ??? blood glucose meter by not applicable route. ??? BLOOD SUGAR DIAGNOSTIC, DISC MISC by not applicable route. ??? diphenhydrAMINE-acetaminophen 25-500 mg tablet Take 2 Tablets by mouth. Most nights ??? empagliflozin (JARDIANCE) 10 mg tablet Take 10 mg by mouth daily. ??? ibuprofen (MOTRIN) 200 mg tablet 4 tab(s) orally 3 times a day PRN ??? lancets by not applicable route. ??? [...] 2 times a day (Patient not taking: Reported on 09/03/2021) ??? pregabalin (LYRICA) 200 mg capsule TAKE 1 CAPSULE BY MOUTH 3 TIMES PER DAY FOR NEUROPATHIC PAIN ??? terbinafine HCL (LAMISIL) 250 mg tablet [...] pink and dry to inspection and palpation. Left hip: Overlying skin intact. No gross deformity. Range of motion to approximately 90 degrees offlexion with significant discomfort with anterior impingement sign. Positive FADIR/CAPO. Distally neurovascular intact throughout Prior radiographs reviewed. This demonstrates bilateral degenerative changes most significant on the right compared to left. Both hips demonstrate a mild cam lesion. There is an ossicle lateral to the acetabulum bilaterally, larger on the left than the right. ASSESSMENT: Left hip pain PLAN: The patient presents today with left hip pain and signs of impingement. He does have some degenerative changes, but is interested in arthroscopic treatment is a more temporizing procedure. He does have a questionable history of avascular necrosis. We will plan to obtain an MRI to further evaluate. I will plan to contact the patient regarding the results of the MRI following its completion. We did briefly discuss arthroscopic management. The patient has a good understanding that this wouldbe treating his inflammation, as well as his acute mechanical pain rather than reversing any longstanding arthritic changes. All questions answered in detail. I spent a total of 20 minutes on the date of this encounter meeting with the patient and reviewing documentation/coordinating care as described in the above note. Tyler Brown MD 11/03/2021 documented in this encounter Plan of Treatment Not on file documented as of this encounter Results * MR HIP WO CONTRAST LEFT (12/06/2021 18:51 EDT) Anatomical Region Laterality Modality Lower Extremities Left Magnetic Reson ance 12/06/2021 18:2 4 EDT Impressions 12/06/2021 19:13 EDT 1. Small zones of class C avascular necrosis seen at the anterior weight-bearing aspect of the femoral heads, bilaterally symmetric as seen. 2. Labral degeneration with sizable paralabral cysts containing debris. This process appears bilateral as well. 3. Tendinitis or low-grade intrasubstance tear of the hamstring origin at the left side. 4. Small volume bilateral trochanteric bursitis. 5. Bilateral small synovial effusions at the hip joints, containing debris or synovial proliferation. THIS DOCUMENT HAS BEEN ELECTRONICALLY SIGNED BY ANDREA LALA MD FOR ANY QUESTIONS OR CONCERNS REGARDING THIS REPORT PLEASE CALL [facility] AT [phone] Narrative 12/06/2021 19:13 EDT PROCEDURE INFORMATION: Exam: MR Left Lower Extremity Joint Without Contrast; Hip Exam date and time: 12/06/2021 6:24 PM Age: 51 years old Clinical indication: Pain in left hip; Other: Please eval for labral tear and avn TECHNIQUE: Imaging protocol: MR of the Left lower extremity joint without contrast. Exam focused on the hip. COMPARISON: CR XR HIPS BILATERAL 2 VIEWS OPTIONAL PELVIS 09/03/2021 3:28 PM FINDINGS: There are small bilateral effusions at the hip joints. These appear to contain some debris. There is a small focus of bone marrow edema/hypervascularity, geographically marginated, involving the anterior weight-bearing aspect of the femoral head. The area in question spans about 18 mm antro posterior and 15 mm transverse. Overlying cortex appears intact as seen. Appearance is consistent with a subacute, low-grade avascular necrosis. Similar changes occur at the right side. Elsewhere, there are intraosseous paralabral cysts of small size seen at the anterior aspect of the acetabular margin. There are small cysts cyst-like zones on the order of a mm or less seen at the interface between the cartilaginous labrum and the bony acetabulum as well. There is a large cyst arising from the lateral aspect of the hip joint and extending superiorly by about 40 mm lie alongside the labrum, the deep to the gluteus minimus. There is some surrounding fluid/inflammatory change of soft tissues. There is debris within this cyst, additionally, possibly partially mineralized. This likely reflects a prominent paralabral cyst. Similar changes occur at the right side. Iliofemoral ligaments are distorted by this large paralabral cyst complex, displaced superiorly. Straight and reflected heads of the rectus femoris intact. There is elevation of intrasubstance signal at the proximal hamstring tendon origins at the left side. There is bilaterally symmetric excess fluid at the trochanteric bursal regions, of mild degree. Sacroiliac joints preserved. Pelvic viscera appear unremarkable. Procedure Note Andrea Lala MD - 12/06/2021 PROCEDURE INFORMATION: Exam: MR Left Lower Extremity Joint Without Contrast; Hip Exam date and time: 12/06/2021 6:24 PM Age: 51 years old Clinical indication: Pain in left hip; Other: Please eval for labral tear and avn TECHNIQUE: Imaging protocol: MR of the Left lower extremity joint without contrast. Exam focused on the hip. COMPARISON: CR XR HIPS BILATERAL 2 VIEWS OPTIONAL PELVIS 09/03/2021 3:28 PM FINDINGS: There are small bilateral effusions at the hip joints. These appear to contain some debris. There is a small focus of bone marrow edema/hypervascularity, geographically marginated, involving the anterior weight-bearing aspect of the femoral head. The area in question spans about 18 mm antro posterior and 15 mm transverse. Overlying cortex appears intact as seen. Appearance is consistent with a subacute, low-grade avascular necrosis. Similar changes occur at the right side. Elsewhere, there are intraosseous paralabral cysts of small size seen at the anterior aspect of the acetabular margin. There are small cysts cyst-like zones on the order of a mm or less seen at the interface between the cartilaginous labrum and the bony acetabulum as well. There is a large cyst arising from the lateral aspect of the hip joint and extending superiorly by about 40 mm lie alongside the labrum, the deep to the gluteus minimus. There is some surrounding fluid/inflammatory change of soft tissues. There is debris within this cyst, additionally, possibly partially mineralized. This likely reflects a prominent paralabral cyst. Similar changes occur at the right side. Iliofemoral ligaments are distorted by this large paralabral cyst complex, displaced superiorly. Straight and reflected heads of the rectus femoris intact. There is elevation of intrasubstance signal at the proximal hamstring tendon origins at the left side. There is bilaterally symmetric excess fluid at the trochanteric bursal regions, of mild degree. Sacroiliac joints preserved. Pelvic viscera appear unremarkable. IMPRESSION 1. Small zones of class C avascular necrosis seen at the anterior weight-bearing aspect of the femoral heads, bilaterally symmetric as seen. 2. Labral degeneration with sizable paralabral cysts containing debris. This process appears bilateral as well. 3. Tendinitis or low-grade intrasubstance tear of the hamstring origin at the left side. 4. Small volume bilateral trochanteric bursitis. 5. Bilateral small synovial effusions at the hip joints, containing debris or synovial proliferation. THIS DOCUMENT HAS BEEN ELECTRONICALLY SIGNED BY ANDREA LALA MD FOR ANY QUESTIONS OR CONCERNS REGARDING THIS REPORT PLEASE CALL [facility] [phone] us Tyler Brown MD IMG MRI ORDERABLES Final Result documented in this encounter Visit Diagnoses Diagnosis Left hip pain- Primary Pain in joint, pelvic region and thigh Left hip pain Pain in joint, pelvic region and thigh documented in this encounter Care Teams Software Administrator Relationship Specialty Start Date End Date Yesenia Morales NP [address] [place] [phone] PCP - General 06/14/21 documented as of this encounter
--- OUTSIDE RECORDS SUMMARY | 2024-08-01 21:58 | XMS_ITS | Encounter Summary ---
Author Organization [facility] Address [address] [place] [address] Care Team Providers Care Adjusto Writer Operator Name Role Phone Carmen Yesenia PRESTON Primary Care Provider [phone] Reason for Referral * Radiology Services (Routine/Next Available) - Authorization Not Required Specialty Diagnoses / Procedures Referred By Sajan calix Referred To Contact Diagnoses Facet arthropathy, lumbar Procedures FL C-ARM BLOCK/INJECTION IN CLINIC Clark Oliva MD Phone: tel: fax: [facility] [place] Referral ID Status Reason Start Date Expiration Date Visits Requested Visits Authorized [id number] Authorization Not Required 2 1 1 Reason for Visit * Auth/Cert Specialty Diagnoses / Procedures Referred By Sajan calix Referred To Contact Referral ID Status Reason Start Date Expiration Date Visits Re quested Visits Authorized [id number] 1 1 Encounter Details Date Type Department Care Team (Latest Contact Info) Description 05/13/2022 10:00 EDT - 05/13/2022 13:26 EDT Hospital Encounter [facility] [place] [address] [place] [address] Facet arthropathy, lumbar Discharge Disposition: Home or [...] suspected to have Coronavirus/COVID-19? No / Unsure 04/15/2022 12:51 EDT documented as of this encounter Functional [...] mg by mouth daily. 1 07/19/20 22 cyclobenzaprine (FLEXERIL) 10 mg tablet Take 10 mg by mouth at bedtime. 07/19/20 22 diclofenac (CATAFLAM) 50 mg tablet [...] Comments FL C-ARM BLOCK/INJECTION IN CLINIC Routine 05/13/2022 14:24 EDT Facet arthropathy, lumbar documented in this encounter Results * FL C-ARM BLOCK/INJECTION IN CLINIC (05/13/2022 14:24 EDT) Narrative 05/13/2022 14:24 EDT This is a non-reportable exam. Clark Oliva MD IMG FLUOROSCOPY ORDERABLES Yolis l Result documented in this encounter Visit Diagnoses Diagnosis Facet arthropathy, lumbar Lumbosacral spondylosis without myelopathy documented in this encounter Care Teams Adjusto Writer Operator Relationship Specialty Start Date End Date Yesenia Morales NP [address] [place] [phone] PCP - General 06/14/21 documented as of this encounter
--- OUTSIDE RECORDS SUMMARY | 2024-08-01 21:58 | XMS_ITS | Encounter Summary ---
Author Organization [facility] Address [address] [place] [address] Care Team Providers Care Deputy Grand Jury Name Role Phone Yesenia Morales NP Primary Care Provider [phone] Reason for Referral * Referral (Routine/Next Available) - Closed Specialty Diagnoses / Procedures Referred By Sajan calix Referred To Contact Pain Medicine Diagnoses Facet arthropathy, lumbar Lumbar pain Procedures RADIOFREQUENCY ABLATION Hattie Powell NP Phone: tel: fax: [facility] [address] [place] [address] Phone: tel: Referral ID Status Reason Start Date Expiration Date Visits Re quested Visits Authorized [id number] Closed 09/20/2021 1 1 Reason for Visit * Auth/Cert Specialty Diagnoses / Procedures Referred By Sajan calix Referred To Contact Referral ID Status Reason Start Date Expiration Date Visits Re quested Visits Authorized [id number] 1 1 Encounter Details Date Type Department Care Team (Latest Contact Info) Description 05/13/2022 13:27 EDT - 05/13/2022 23:59 EDT Hospital Encounter [facility] [address] [place] [address] Clark Oliva MD [address] [place] [address] [address] [place] [address] Spondylosis without myelopathy or radiculopathy, lumbar [...] 13:38 EDT documented as of this encounter Last Filed Vital Signs Vital Sign Reading Time Taken Comments Blood Pressure 144/86 05/13/2022 1427 EDT Pulse - - Temperature 36.8 ??C (98.2 ??F) 05/13/2022 1427 EDT Respiratory Rate 18 05/13/2022 1427 EDT Oxygen Saturation 98% 05/13/2022 1427 EDT Inhaled Oxygen Concentration - - Weight 74.8 kg (165 lb) 05/13/2022 1346 EDT Height 168.9 cm (5' 6.5) 05/13/2022 1346 EDT Body Mass Index 26.23 05/13/2022 1346 EDT documented in this encounter Functional Status [...] Instructions * Discharge Instructions* Nyla Kingsley - 05/13/2022 14:[address] [facility] Dr. Christal Lindo and Dr. Clark Oliva Patient Instructions after Radiofrequency Ablation Procedure Today you had your Radiofrequency Ablation. The purpose of this procedure is to relieve or reduce your pain. The following information should help you over the next few days/weeks regarding what you may expect. ??? Please take it easy for the rest of the day. ??? DO NOT drive a car or operate machinery for the remainder of the day. ??? If you feel sore from the needles used from the block, please use ice on the area. You may leave the ice on for up to 20 minutes at a time. Do not use heat, as this can increase swelling. ??? As long as your primary care doctor has indicated no restrictions, you may take a mild pain medicine, such as acetaminophen (Tylenol), or ibuprofen (Advil, Nuprin, Motrin) if needed. ??? Please ask your doctor when you can restart your blood thinners__N/A , otherwise you may resume any medications that we asked you to hold for your procedure. ??? Please keep track of how your pain feels over the next few weeks. On average patients start to notice relief at 3-4 weeks, but this can take up to 8-10 weeks to know whether this procedure was helpful. ??? If the block causes numbness (asleep) feeling or weakness, that will wear off within several hours. ??? Remove the bandage(s) today or tomorrow. If the area where the needle(s) were inserted becomes hot, red, swollen, increasingly tender, or you develop fever (100.5 or greater) or chills along withthese symptoms, please call our office immediately at , if after hours/weekend follow instructions below. ??? If you develop increasingly severe neck or back pain, continued numbness or weakness in your arms for neck injection, or legs for back injection or loss of bladder/bowel control, call immediately. ??? If after hours or on the weekend, please call [facility] Provider Access line at , ask them [...] with your results (% and months of relief). If at any time this wears off, please call us. We then determine with you if this procedure is worth repeating at any time after 6 months or if you should come in for a follow-up to discuss options. Call us with any questions at ([phone]) documented in this encounter Medications at Time [...] mg by mouth daily. 1 07/19/20 22 celecoxib (CELEBREX) 100 mg capsule Take 100 mg by mouth daily. 07/19/20 22 cyclobenzaprine (FLEXERIL) 10 mg tablet [...] Progress Notes * Clark Oliva MD - 05/13/2022 1430 EDT Patient Name: Diogo Martinez : 1970 Date of Service: 05/13/2022 Technical Support Manager: Clark Oliva MD Information Specialist: None Procedure: Therapeutic lumbar radiofrequency ablation at L4, L5, SA on the right Interval History: Patient presents today concerning their [...] and new imaging were reviewed. Injection History: 05/13/2022: lumbar radiofrequency ablation at L4, L5, SA on the right 04/15/2022: lumbar radiofrequency ablation at L4, L5, SA on the left 03/31/2022: L4, L5, SA MBBs bilaterally: 80% relief >12 hours 03/18/2022: L4, L5, SA MBBs??bilaterally: 80% relief > 12 hours Physical Exam: Vitals: BP 126/75 (BP Cuff Location: Left arm) Temp 36.7 ??C (98.1 ??F) (Oral) Resp 18 Ht 168.9 cm (66.5) Wt 74.8 kg (165 lb) SpO2 97% BMI 26.23 kg/m?? General: Patient is alert and oriented, no acute distress Lungs: symmetric chest rise, no evidence of labored breathing Skin: clear, warm, dry and intact and no rashes, bruises or petechiae noted Assessment: 1. Spondylosis without myelopathy or radiculopathy, lumbar region 2. Facet arthropathy, lumbar 3. Lumbar pain Plan: All risks, benefits, and alternatives were thoroughly explained to Diogo Bambi Martinez who verbally communicated understanding of the [...] documentation in this encounter. Clark Oliva MD 05/13/2022 14:00 * Nyla Kingsley - 05/13/2022 1430 EDT Dressing c/d/i to low back. Pt denies numbness or weakness in lower extremities. Pt ambulating steady gait noted. Pt discharged to under canopy. documented in this encounter OR Notes * Preprocedure Instructions - Kristen Farias RN - 05/13/2022 1430 EDT Phone call related to scheduling appointment. Appointment scheduled with on 05/13/22. Reminded patient of the following items: -Patient must have a dedicated local truck driver to be present at drop off and turkey picker for their appointment. -Patient needs to arrive 60 minutes ahead of procedural start time. -Patient must be infection free and off antibiotics for 14 days prior to appointment with written clearance from , also no active or open wounds. -Patient [...] applicable, list exceptions below: Instructed patient to stop Asprin 1 week prior to injection. Instructed patient to stop NSAIDS 24 hours prior to injection. Patient advised to call our clinic if they develop any new symptoms, concerns for infection, skin issues, or the need to reschedule their appointment. If they have any questions regarding medication holds, they should contact the clinic to speak withnurse. Directions and clinic phone number [phone] were provided to patient as needed. documented in this encounter Plan of Treatment Scheduled Orders Name Type Priority Associated Diagnoses Orde r Schedule RADIOFREQUENCY ABLATION Procedures Routine Facet arthropathy, lumbar Lumbar pain 1 Occurrences starting 05/13/2022 until 05/13/2022 documented as of this encounter Visit Diagnoses [...] mL, marla-neural, NOW X1, 1 dose, On Mon05/13/22 at 1415, Routine, Intraprocedure Given 05/13/2022 14:25 EDT 3 mL lidocaine (PF) 20 mg/mL (2 %) injection 60 mg 60 mg (3 mL), marla-neural, NOW X1, 1 dose, On Mon05/13/22 at 1415, Routine, Intraprocedure Given 05/13/2022 14:19 EDT 60 mg documented in this encounter Historical Medications * This list may reflect changes made after this encounter. celecoxib (CELEBREX) 100 mg capsule Take 100 mg by mouth daily. 07/19/2022 added in this encounter Care Teams Deputy Grand Jury Relationship Specialty Start Date End Date Yesenia Morales NP [address] [place] [phone] PCP - General 06/14/21 documented as of this encounter
--- OUTSIDE RECORDS SUMMARY | 2024-08-01 21:58 | XMS_ITS | Encounter Summary ---
Author Organization [facility] Address [address] [place] [address] Care Team Providers Care Perch Mender Name Role Phone CarlineYesenia trejo MOHAN Primary Care Provider [phone] Encounter Details Date Type Department Care Team (Latest Contact Info) Description 03/18/2022 Travel Social History Tobacco Use Types Packs/Day [...] suspected to have Coronavirus/COVID-19? No / Unsure 03/18/2022 11:44 EDT documented as of this encounter Functional [...] on filedocumented in this encounter Care Teams Perch Mender Relationship Specialty Start Date End Date Yesenia Morales NP [address] [place] [phone] PCP - General 06/14/21 documented as of this encounter
--- OUTSIDE RECORDS SUMMARY | 2024-08-01 21:58 | XMS_ITS | Encounter Summary ---
Author Organization [facility] Address [address] [place] [address] Care Team Providers Care Battery Assembler Name Role Phone CarlineYesenia trejo MOHAN Primary Care Provider [phone] Reason for Visit * Reason Comments Follow-up Encounter Details Date Type Department Care Team (Late st Contact Info) Description 10/13/2021 16:00 EDT Office Visit [facility] [address] [place], [place] [id number] Gilbert Macias MD [address] [facility] [address] [place] [address] Osteonecrosis of both hips (HCC-CMS) (HCC) (Primary Dx) Social History Tobacco Use Types [...] 15:50 EDT documented as of this encounter Last Filed Vital Signs Vital Sign Reading Time Taken Comments Blood Pressure - - Pulse - - Temperature 36.3 ??C (97.4 ??F) 10/13/2021 1551 EDT Respiratory Rate - - Oxygen Saturation - - Inhaled Oxygen Concentration - - Weight - [...] Progress Notes * Gilbert Macias MD - 10/13/2021 1600 EDT PROBLEM: hiop pain SUBJECTIVE: Diogo Martinez is a 50 y.o. male who is here today for follow up. Diogo has had some pain inthe hips for quite a while. He has had both right and left hip pain. More recently his left hip hasbeen the most painful. He says he had radicular pain in the left hip. This radiated down at leastto the knee and some degree below then. He says that he had a steroid injection to the left hip in June. His pain has been much better since then. He does admit to a history of significant alcohol use in the past. He stopped drinking a little over a year ago when he developed severe pancreatitis. I met with Diogo in August. At that time, he did feel that the left hip pain was better after an injection. We discussed the findings on x-rays which did show collapse on the right side. We discussed possible hip replaced on the right if pain worsen. The left hip still appeared relatively well-preserved. He did have an ossified body adjacent to the hip suggesting calcified labrum. I did review the studies with Dr. Tyler Brown. I suggested patient meet with him to discuss whether arthroscopicsurgery would be beneficial. Diogo says that he actually thought today's visit was supposed to be with him. The past medical, family and social history have been reviewed in the patient chart. ROS OBJECTIVE: Temp 36.3 ??C (97.4 ??F) On physical exam, the patient is found to be a pleasant and cooperative male. In no acute distress. Psych: He is alert and oriented x 3 with normal affect. Constitutional: He is well-developed and in no significant distress. Eyes: Sclerae clear. Resp: Breathing is regular and nonlabored without audible wheezing. Skin: warm and dry ASSESSMENT: 1. Osteonecrosis of both hips (HCC-CMS) ([facility]) PLAN: We talked again about surgery for the hip. He is not quite ready to consider joint arthroplasty. Again, I am not sure that arthroscopic surgery would be offered but he would like to speak with Dr. Tyler Brown. I will send this out to the credit front office developer and copy to Dr. Tyler Brown so that they can work out a schedule. Another option is to try an injection into the hip again if symptoms get worse and he is not a candidate for arthroscopy. Follow up with Dr. Tyler Brown This note was prepared using voice recognition software and the EMR. There may be inadvertent errors and omissions. Gilbert Macias MD 10/17/2021 documented in this encounter Plan of Treatment Not on file documented as of this encounter Visit Diagnoses Diagnosis Osteonecrosis of both hips (HCC-CMS)- Primary documented in this encounter Care Teams Battery Assembler Relationship Specialty Start Date End Date Yesenia Mroales NP [address] [place] [phone] PCP - General 06/14/21 documented as of this encounter
--- OUTSIDE RECORDS SUMMARY | 2024-08-01 21:58 | XMS_ITS | Encounter Summary ---
Author Organization [facility] Address [address] [place] [address] Care Team Providers Care Education Paraprofessional Name Role Phone CarlineYesenia trejo MOHAN Primary Care Provider [phone] Encounter Details Date Type Department Care Team (Latest Contact Info) Description 04/15/2022 Travel Social History Tobacco Use Types Packs/Day [...] on filedocumented in this encounter Care Teams Education Paraprofessional Relationship Specialty Start Date End Date Yesenia Morales NP [address] [place] [phone] PCP - General 06/14/21 documented as of this encounter
--- OUTSIDE RECORDS SUMMARY | 2024-08-01 21:58 | XMS_ITS | Encounter Summary ---
Author Organization [facility] Address [address] [place] [address] Care Team Providers Care Wash Test Checker Name Role Phone CarlineYesenia trejo MOHAN Primary Care Provider [phone] Reason for Visit * Reason Comments Follow-up Encounter Details Date Type Department Care Team (Late st Contact Info) Description 07/04/2022 15:45 EST Office Visit [facility] [address] [place] [address] Kimberlee Domínguez PA-C [address] [facility] [address] [place] [address] Left hip pain (Primary Dx) [...] 15:45 EST documented as of this encounter Last Filed Vital Signs Vital Sign Reading Time Taken Comments Blood Pressure - - Pulse 92 07/04/2022 1547 EST Temperature - - Respiratory Rate - - Oxygen Saturation 95% 07/04/2022 1547 EST Inhaled Oxygen Concentration - - Weight [...] in this encounter Progress Notes * Kimberlee Domínguez PA-C - 07/04/2022 1545 EST Diogo presents today for a pre-operative [...] placed, to [facility] and [place], [place]. A brace order was faxed to the [place], for the hip brace postoperatively. He has [...] SYD Anthony 07/04/2022 documented in this encounter Plan of Treatment Not on file documented as of this encounter Visit Diagnoses Diagnosis Left hip pain- Primary Pain in joint, pelvic region and thigh documented in this encounter Orders Equipment Count Last Ordered Date First Orde red Date GENERIC ORTHO VENDOR DME 1 07/04/2022 documented in this encounter Care Teams Wash Test Checker Relationship Specialty Start Date End Date Yesenia Morales NP [address] [place] [phone] PCP - General 06/14/21 documented as of this encounter
--- OUTSIDE RECORDS SUMMARY | 2024-08-01 21:58 | XMS_ITS | Encounter Summary ---
Author Organization [facility] Address [address] [place] [address] Care Team Providers Care Manager Landscape Name Role Phone Yesenia Morales NP Primary Care Provider [phone] Reason for Referral * Radiology Services (Routine/Next Available) - Closed Specialty Diagnoses / Procedures Referred By Sajan calix Referred To Contact Radiology Diagnoses Left hip pain Procedures MR HIP WO CONTRAST LEFT Tyler Brown MD Phone: tel: fax: [facility] Referral ID Status Reason Start Date Expiration Date Visits Re quested Visits Authorized [id number] Closed 11/03/2021 1 1 Reason for Visit * Radiology Services (Routine/Next Available) - Closed Specialty Diagnoses / Procedures Referred By Sajan calix Referred To Contact Radiology Diagnoses Left hip pain Procedures MR HIP WO CONTRAST LEFT Tyler Brown MD Phone: tel: fax: [facility] Referral ID Status Reason Start Date Expiration Date Visits Re quested Visits Authorized [id number] Closed 11/03/2021 1 1 Encounter Details Date Type Department Care Team (Latest Contact Info) Description 12/06/2021 18:07 EDT - 12/06/2021 23:59 EDT Hospital Encounter [facility] MRI [address] [place], [place] [address] Left hip pain Discharge Disposition: Home or Self Care [...] mg tablet 10 Tablets at bedtime. 05/05/2021 atorvastatin (LIPITOR) 40 mg tablet Take 1 Tablet by mouth every evening. 03/31/2021 blood glucose meter by not applicable route. 01/21/2020 BLOOD SUGAR DIAGNOSTIC, DISC MISC by not applicable route. 01/21/2020 diphenhydrAMINE- acetaminophen 25-500 mg tablet Take 2 Tablets by mouth. Most nights 03/16/2021 lancets by not applicable route. 01/21/2020 melatonin 10 mg capsule Take 10 mg by mouth at bedtime. 02/25/2021 metFORMIN (GLUCOPHAGE-XR) 500 mg ER tablet Take 2 Tablets by mouth 2 times daily. 04/21/2021 terbinafine HCL (LAMISIL) 250 mg tablet daily. 04/13/2021 aspirin 325 mg tablet Take 325 mg by mouth daily. 02/25/2021 2 empagliflozin (JARDIANCE) 10 mg tablet Take 1 Tablet by mouth daily. 4 ibuprofen (MOTRIN) 200 mg tablet 4 tab(s) orally 3 times a day PRN 2 LOW-DOSE ASPIRIN ORAL Take 81 mg by mouth daily. 2 methocarbamoL (ROBAXIN) 500 mg tablet Take 500 mg by mouth if needed. 1-2 tabs up to 2 times a day 2 pregabalin (LYRICA) 200 mg capsule Generally BID 04/10/2021 4 documented as of this encounter Discharge Disposition Disposition Code Departure Means Destination Home or Self Care documented in this encounter Miscellaneous Notes * Result Encounter Note - Tyler Brown MD - 12/06/2021 1845 EDT Left a voicemail for the patient today regarding MRI results. Can we schedule him for follow-up andMRI review? Thanks. documented in this encounter Plan of Treatment Not on file documented as of this encounter Procedures Procedure Name Priority Date/Time Associated Diagnosis Comments MR HIP WO CONTRAST LEFT Routine 12/06/2021 18:51 EDT Left hip pain documented in this encounter Results * MR HIP WO [...] REGARDING THIS REPORT PLEASE CALL [facility] AT [phone] Narrative 12/06/2021 19:13 EDT PROCEDURE INFORMATION: Exam: [...] CONCERNS REGARDING THIS REPORT PLEASE CALL [facility] [phone] Tyler Brown MD IMG MRI ORDERABLES Final Result documented in this encounter Visit Diagnoses Diagnosis Left hip pain Pain in joint, pelvic region and thigh documented in this encounter Care Teams Manager Landscape Relationship Specialty Start Date End Date Yesenia Morales NP [address] [place] [phone] PCP - General 06/14/21 documented as of this encounter
--- OUTSIDE RECORDS SUMMARY | 2024-08-01 21:58 | XMS_ITS | Encounter Summary ---
Author Organization [facility] Address [address] [place] [address] Care Team Providers Care Tape Fastener Machine Operator Name Role Phone CarlineYesenia trejo MOHAN Primary Care Provider [phone] Encounter Details Date Type Department Care Team (Latest Contact Info) Description 04/01/2022 Travel Social History Tobacco Use Types Packs/Day [...] on filedocumented in this encounter Care Teams Tape Fastener Machine Operator Relationship Specialty Start Date End Date Yesenia Morales NP [address] [place] [phone] PCP - General 06/14/21 documented as of this encounter
--- OUTSIDE RECORDS SUMMARY | 2024-08-01 21:58 | XMS_ITS | Encounter Summary ---
Author Organization [facility] Address [address] [place] [address] Care Team Providers Care Pathology Laboratory Technologist Name Role Phone Yesenia Morales NP Primary Care Provider [phone] Reason for Referral * Radiology Services (Routine/Next Available) - Authorization Not Required Specialty Diagnoses / Procedures Referred By Sajan calix Referred To Contact Diagnoses Lumbar pain Procedures FL C-ARM BLOCK/INJECTION IN CLINIC Clark Oliva MD Phone: tel: fax: [facility] Referral ID Status Reason Start Date Expiration Date Visits Requested Visits Authorized [id number] Authorization Not Required 03/17/2022 1 1 Reason for Visit * Auth/Cert Specialty Diagnoses / Procedures Referred By Sajan calix Referred To Contact Referral ID Status Reason Start Date Expiration Date Visits Re quested Visits Authorized [id number] 1 1 Encounter Details Date Type Department Care Team (Latest Contact Info) Description 03/18/2022 11:34 EDT - 03/18/2022 23:59 EDT Hospital Encounter [facility] - [facility] Xray [address] [place] [address] Lumbar pain Discharge Disposition: Home or Self [...] Comments FL C-ARM BLOCK/INJECTION IN CLINIC Routine 03/18/2022 12:27 EDT Lumbar pain documented in this encounter Results * FL C-ARM BLOCK/INJECTION IN CLINIC (03/18/2022 12:27 EDT) Narrative 03/18/2022 12:28 EDT This is a non-reportable exam. us Clark Oliva MD IMG FLUOROSCOPY ORDERABLES Yolis l Result documented in this encounter Visit Diagnoses Diagnosis Lumbar pain Lumbago documented in this encounter Care Teams Pathology Laboratory Technologist Relationship Specialty Start Date End Date Yesenia Morales NP [address] [place] [phone] PCP - General 06/14/21 documented as of this encounter
--- OUTSIDE RECORDS SUMMARY | 2024-08-01 21:58 | XMS_ITS | Encounter Summary ---
Author Organization [facility] Address [address] [place] [address] Care Team Providers Care Pleating Machine Operator Name Role Phone Carlinemaya Yesenia MOHAN Primary Care Provider [phone] Encounter Details Date Type Department Care Team (Latest Contact Info) Description 11/03/2021 Travel Social History Tobacco Use Types Packs/Day [...] on filedocumented in this encounter Care Teams Pleating Machine Operator Relationship Specialty Start Date End Date Yesenia Morales NP [address] [place] [phone] PCP - General 06/14/21 documented as of this encounter
--- OUTSIDE RECORDS SUMMARY | 2024-08-01 21:58 | XMS_ITS | Encounter Summary ---
Author Organization [facility] Address [address] [place] [address] Care Team Providers Care Edger Saw Operator Name Role Phone CarlineYesenia trejo MOHAN Primary Care Provider [phone] Encounter Details Date Type Department Care Team (Latest Contact Info) Description 09/03/2021 Travel Social History Tobacco Use Types Packs/Day [...] have Coronavirus / COVID-19? No / Unsure 09/03/2021 15:15 EST documented as of this encounter Functional [...] on filedocumented in this encounter Care Teams Edger Saw Operator Relationship Specialty Start Date End Date Yesenia Morales NP [address] [place] [phone] PCP - General 06/14/21 documented as of this encounter
--- OUTSIDE RECORDS SUMMARY | 2024-08-01 21:58 | XMS_ITS | Encounter Summary ---
Author Organization [facility] Address [address] [place] [address] Care Team Providers Care Enrollment Eligibility Representative Name Role Phone Carlinemaya Yesenia MOHAN Primary Care Provider [phone] Encounter Details Date Type Department Care Team (Latest Contact Info) Description 02/16/2022 Travel Social History Tobacco Use Types Packs/Day [...] 10:02 EDT documented as of this encounter Functional [...] on filedocumented in this encounter Care Teams Enrollment Eligibility Representative Relationship Specialty Start Date End Date Yesenia Morales NP [address] [place] [phone] PCP - General 06/14/21 documented as of this encounter
--- OUTSIDE RECORDS SUMMARY | 2024-08-01 21:58 | XMS_ITS | Encounter Summary ---
Author Organization [facility] Address [address] [place] [address] Care Team Providers Care Bath Tester Name Role Phone Yesenia Morales NP Primary Care Provider [phone] Reason for Visit * Radiology Services (Routine/Next Available) - Authorization Not Required Specialty Diagnoses / Procedures Referred By Sajan calix Referred To Contact Radiology Diagnoses Acute pain of both shoulders Neck pain Procedures MR CERVICAL SPINE WO CONTRAST Hattie Powell NP Phone: tel: fax: [facility] Referral ID Status Reason Start Date Expiration Date Visits Requested Visits Authorized [id number] Authorization Not Required 02/16/2022 1 1 Encounter Details Date Type Department Care Team (Latest Contact Info) Description 03/17/2022 6:02 EDT - 03/17/2022 23:59 EDT Hospital Encounter [facility] MRI [address] [place] [address] Discharge Disposition: Home or Self Care Social [...] herniation or spinal stenosis. Procedure Note Ilia Andrew MD - 03/17/2022 INDICATION: Cervical radiculopathy, no [...] degrees ofneural foraminal stenosis as described above. Hattie Powell NP IMG MRI ORDERABLES Final Resu lt documented in this encounter Visit Diagnoses Not on filedocumented in this encounter Care Teams Bath Tester Relationship Specialty Start Date End Date Yesenia Morales NP [address] [place] [phone] PCP - General 06/14/21 documented as of this encounter
--- OUTSIDE RECORDS SUMMARY | 2024-08-01 21:58 | XMS_ITS | Encounter Summary ---
Author Organization [facility] Address [address] [place] [address] Care Team Providers Care Gun Barrel Finisher Name Role Phone Carlinemaya Yesenia MOHAN Primary Care Provider Encounter Details Date Type Department Care Team (Latest Contact Info) Description 12/27/2021 Travel Social History Tobacco Use Types Packs/Day [...] suspected to have Coronavirus/COVID-19? No / Unsure 12/27/2021 15:26 EDT documented as of this encounter Functional [...] on filedocumented in this encounter Care Teams Gun Barrel Finisher Relationship Specialty Start Date End Date Yesenia Morales NP [address] [place] [phone] PCP - General 06/14/21 documented as of this encounter
--- OUTSIDE RECORDS SUMMARY | 2024-08-01 21:58 | XMS_ITS | Encounter Summary ---
Author Organization [facility] Address [address] [place] [address] Care Team Providers Care Esl Professor Name Role Phone CarlineYesenia trejo MOHAN Primary Care Provider [phone] Encounter Details Date Type Department Care Team (Latest Contact Info) Description 05/13/2022 Travel Social History Tobacco Use Types Packs/Day [...] on filedocumented in this encounter Care Teams Esl Professor Relationship Specialty Start Date End Date Yesenia Morales NP [address] [place] [phone] PCP - General 06/14/21 documented as of this encounter
--- OUTSIDE RECORDS SUMMARY | 2024-08-01 21:58 | XMS_ITS | Encounter Summary ---
Author Organization [facility] Address [address] [place] [address] Care Team Providers Care E Marketing Specialist Name Role Phone Carlinemaya Yesenia MOHAN Primary Care Provider [phone] Encounter Details Date Type Department Care Team (Latest Contact Info) Description 10/13/2021 Travel Social History Tobacco Use Types Packs/Day [...] on filedocumented in this encounter Care Teams E Marketing Specialist Relationship Specialty Start Date End Date Yesenia Morales NP [address] [place] [phone] PCP - General 06/14/21 documented as of this encounter
--- OUTSIDE RECORDS SUMMARY | 2024-08-01 21:58 | XMS_ITS | Encounter Summary ---
Author Organization [facility] Address [address] [place] [address] Care Team Providers Care Volunteer Services Manager Name Role Phone Yesenia Morales NP Primary Care Provider [phone] Reason for Referral * Referral (Routine/Next Available) - Closed Specialty Diagnoses / Procedures Referred By Sajan calix Referred To Contact Pain Medicine Diagnoses Facet arthropathy, lumbar Lumbar pain Procedures RADIOFREQUENCY ABLATION Hattie Powell NP Phone: tel: fax: [facility] [address] [place] [address] Phone: tel: Referral ID Status Reason Start Date Expiration Date Visits Re quested Visits Authorized [id number] Closed 09/20/2021 1 1 Reason for Visit * Auth/Cert Specialty Diagnoses / Procedures Referred By Sajan calix Referred To Contact Referral ID Status Reason Start Date Expiration Date Visits Re quested Visits Authorized [id number] 1 1 Encounter Details Date Type Department Care Team (Latest Contact Info) Description 04/15/2022 12:39 EDT - 04/15/2022 23:59 EDT Hospital Encounter [facility] [address] [place] [address] Clark Oliva MD [address] [place] [address] [place] [phone] Spondylosis without myelopathy or radiculopathy, lumbar [...] Sign Reading Time Taken Comments Blood Pressure 139/83 04/15/2022 1347 EDT Pulse 72 04/15/2022 1347 EDT Temperature 36.7 ??C (98 ??F) 04/15/2022 1256 EDT Respiratory Rate 18 04/15/2022 1347 EDT Oxygen Saturation 98% 04/15/2022 1347 EDT Inhaled Oxygen Concentration - - Weight - [...] encounter Discharge Instructions * Discharge Instructions* Kristen Farias RN - 04/15/2022 13:18 EDT [facility] Dr. Christal Lindo and [...] hours or on the weekend, please call [facility] Provider Access line at , ask [...] options. Call us with any questions at ([phone]) documented in this encounter Medications at Time [...] Progress Notes * Clark Oliva MD - 04/15/2022 1330 EDT Patient Name: Diogo Martinez : 1970 Date of Service: 04/15/2022 Plastic Tile Setter: Clark Oliva MD Welding Inspector: None Procedure: Therapeutic lumbar radiofrequency ablation at L4, L5, SA on the left Interval History: Patient presents today concerning their [...] and new imaging were reviewed. Injection History: 04/15/2022: lumbar radiofrequency ablation at L4, L5, SA on the left 03/31/2022: L4, L5, SA MBBs bilaterally: 80% relief >12 hours 03/18/2022: L4, L5, SA MBBs??bilaterally: 80% relief > 12 hours Physical Exam: Vitals: BP 126/84 (BP Cuff Location: Left arm) Temp 36.7 ??C (98 ??F) (Oral) Resp 18 SpO2 100% General: Patient is alert and oriented, no [...] documentation in this encounter. Clark Oliva MD 04/15/2022 13:21 * Kristen Farias RN - 04/15/2022 1330 EDT Dressing CDI. VSS. Steady gait. Home with Sarabjit. documented in this encounter OR Notes * Preprocedure Instructions - Nisha Manzanares RN - 04/15/2022 1330 EDT Phone call related to scheduling appointment. Appointment scheduled with Dr. Olivier on 04/15/22. Reminded patient of the following items: -Patient must have a auto driver to be present at drop off and diamond picker for their appointment, patient has arranged. -Patient needs to arrive 60 minutes ahead of procedural start time, 1230PM. -Patient must be infection free and off [...] Fasting Instructions as applicable, list exceptions below: Hold supplements x 7 days prior to appt, last dose 04/08/22 Patient advised to call our clinic if they develop any new symptoms, concerns for infection, skin issues, or the need to reschedule their appointment. If they have any questions regarding medication holds, they should contact the clinic to speak withnurse. Directions and clinic phone number [phone] were provided to patient as needed. documented in this encounter Miscellaneous Notes * Addendum Note - Yanci Mccrary RN - 04/15/2022 1330 EDTEncounter addended by: Yanci Mccrary RN on: 06/14/2022 13:48 Actions taken: Contacts section saved, Flowsheet accepted * Addendum Note - Kristen Farias RN - 04/15/2022 1330 EDTEncounter addended by: Kristen Farias RN on: 06/20/2022 8:25 Actions taken: Contacts section saved * Addendum Note - Kristen Farias RN - 04/15/2022 1330 EDTEncounter addended by: Kristen Farias RN on: 06/28/2022 9:08 Actions taken: Contacts section saved, Flowsheet accepted * Addendum Note - Kristen Farias RN - 04/15/2022 1330 EDTEncounter addended by: Kristen Farias RN on: 11/21/2022 9:35 Actions taken: Contacts section saved, Flowsheet accepted * Addendum Note - Kristen Farias RN - 04/15/2022 1330 EDTEncounter addended by: Kristen Farias RN on: 12/05/2022 8:38 Actions taken: Contacts section saved * Addendum Note - Yanci Mccrary RN - 04/15/2022 1330 EDTEncounter addended by: Yanci Mccrary RN on: 12/06/2022 8:28 Actions taken: Flowsheet accepted, Contacts section saved documented in this encounter Plan of Treatment Scheduled Orders Name Type Priority Associated Diagnoses Orde r Schedule RADIOFREQUENCY ABLATION Procedures Routine Facet arthropathy, lumbar Lumbar pain 1 Occurrences starting 04/15/2022 until 04/15/2022 documented as of this encounter Procedures Procedure Name Priority Date/Time Associated Diagnosis Comments POCT GLUCOSE, INTERFACED Routine 04/15/2022 13:07 EDT documented in this encounter Results * POCT GLUCOSE, INTERFACED (04/15/2022 13:07 EDT) Glucose, POC 100 70 - 100 mg/dL 04/15/2022 13:08 EDT [facility] HN LAB POC COMMENT (GLUCOSE) Test Performed in SDS 04/15/2022 13:08 EDT [facility] Blood CAPILLARY BLOOD / Unknown 04/15/2022 13:07 EDT 04/15/2022 13:08 EDT us Clark Oliva MD POINT OF CARE TEST ORDERABLES F inal Result [facility] [address] [place] [address] documented in this encounter Visit Diagnoses Diagnosis [...] mL, marla-neural, NOW X1, 1 dose, On Mon04/15/22 at 1400, Routine, Intraprocedure Given by Other 04/15/2022 13:42 EDT 3 mL lidocaine (PF) 20 mg/mL (2 %) injection 60 mg 60 mg (3 mL), marla-neural, NOW X1, 1 dose, On Mon04/15/22 at 1400, Routine, Intraprocedure Given by Other 04/15/2022 13:37 EDT 60 mg documented in this encounter Historical Medications * This list may reflect changes made after this encounter. cyclobenzaprine (FLEXERIL) 10 mg tablet Take 10 mg by mouth at bedtime. 07/19/2022 added in this encounter Care Teams Volunteer Services Manager Relationship Specialty Start Date End Date Yesenia Morales NP [address] [place] [phone] PCP - General 06/14/21 documented as of this encounter
--- OUTSIDE RECORDS SUMMARY | 2024-08-01 21:58 | XMS_ITS | Encounter Summary ---
Author Organization [facility] Address [address] [place] [address] Care Team Providers Care Airport Maintenance Chief Name Role Phone CarlineYesenia trejo MOHAN Primary Care Provider [phone] Reason for Visit * Reason Comments Follow-up Encounter Details Date Type Department Care Team (Late st Contact Info) Description 12/27/2021 15:30 EDT Office Visit [facility] Orthopedics & Sport Medicine [address], [address] [place], [place] [id number] Tyler Brown MD [address] [facility] [address] [place] [address] Left hip pain (Primary Dx) [...] Progress Notes * Tyler Brown MD - 12/27/2021 1530 EDT The patient presents today for follow-up. Please see prior notes for full HPI. MRI obtained over the interval. The patient remains interested in surgery. A 10-point review of systems has been [...] a day (Patient not taking: Reported on 12/27/2021) ??? pregabalin (LYRICA) 200 mg capsule TAKE [...] pink and dry to inspection and palpation. General Exam: GENERAL APPEARANCE: no acute distress, pleasant, cooperative. HEENT EYES:, conjunctiva clear, EARS:, TM's normal, NOSE:, unremarkable, THROAT:, pharynx and tonsils normal. ORAL CAVITY: no lesions. NECK: supple, no lymphadenopathy. CHEST: normal shape and expansion. HEART: regular rate and rhythm, no murmurs. LUNGS: clear to auscultation, unlabored. ABDOMEN: soft, NT/ND, BS present, no masses felt, no hepatosplenomegaly. Left hip: Overlying skin intact. No gross deformity. Range of motion to approximately 90 degrees offlexion with significant discomfort with anterior impingement sign. Positive FADIR/CAPO. Distally neurovascular intact throughout ?? Prior radiographs reviewed. This demonstrates bilateral degenerative changes most significant on the right compared to left. Both hips demonstrate a mild cam lesion. There is an ossicle lateral to the acetabulum bilaterally, larger on the left than the right. MRI reviewed. Significant synovial cyst. Associated wear of the labrum and cartilage. Small foci ofanterior AVN. ASSESSMENT: Left hip pain, labral tear, synovial cyst PLAN: This patient has met my surgical selection criteria. I had detailed discussion with him today regarding expectations after surgery, and he has a very good understanding that this would be a procedurethat would be aimed at debridement, and that he may require a total hip arthroplasty in the future.He voices understanding of this. Nevertheless, I believe that the patient will benefit from the surgery given his symptoms at the present time as well as the presence of a large synovitis cyst. I have recommended hip arthroscopy for this patient. The outline of the surgical procedure, surgical risks, benefits and postoperative recovery course were outlined in detail using models and/or an animation video. We discussed: bleeding, infection, blood clots, scar formation, persistent pain, stiffness, bursitis, LFCN and pudental nerve palsy, need for further surgery, anesthetic risk and/or medical complications. Questions were solicited and answered. The patient verbalized understanding of the above and surgical consent was signed. The patient was given a referral for physical therapy and a post-operative protocol for their procedure. Patient understands the expectations around post- operative physical therapy and that this is an important component of their recovery. They were instructed to schedule their first post-operativeappointment prior to the day of surgery. They were instructed that this should be scheduled for 1-2days from the date of surgery. The patient is being prescribed a prescription opioid for the treatment of acute post-operative pain related to this surgery. The patient has been advised to take the smallest dose possible to control their pain and as their pain improves to take smaller doses and increase the time between doses inorder to wean off this medication. In addition to this medication, non-opioid medications have beenprescribed for adjunct treatment of their pain. Non-pharmacological treatment such as ice, elevation and activity modification have been recommended as appropriate. The Acute Opioid Informed Consent form has been completed and sent to medical records for scanning to chart I spent a total of 20 minutes on the date of this encounter meeting with the patient and reviewing documentation/coordinating care as described in the above note. Tyler Brown MD 12/27/2021 documented in this encounter Plan of Treatment Not on file documented as of this encounter Visit Diagnoses Diagnosis Left hip pain- Primary Pain in joint, pelvic region and thigh documented in this encounter Orders Case Request Count Last Ordered Date First Orde red Date CASE REQUEST OPERATING ROOM 1 12/27/2021 documented in this encounter Care Teams Airport Maintenance Chief Relationship Specialty Start Date End Date Yesenia Morales NP [address] [place] [id number] PCP - General 06/14/21 documented as of this encounter
--- OUTSIDE RECORDS SUMMARY | 2024-08-01 21:58 | XMS_ITS | Encounter Summary ---
Author Organization [facility] Address [address] [place] [address] Care Team Providers Care Diathermy Equipment Repairer Name Role Phone Yesenia Morales NP Primary Care Provider [phone] Encounter Details Date Type Department Care Team (Late st Contact Info) Description 03/09/2022 Results Only [facility] - [facility] [address] [place] [address] Yesenia Morales NP [address] [place] [address] Social History Tobacco Use Types Packs/Day [...] Date/Time Associated Diagnosis Comments HEMOGLOBIN A1C Routine 03/09/2022 9:15 EDT documented in this encounter Results * (ABNORMAL) HEMOGLOBIN A1C (03/09/2022 9:15 EDT) HgB A1C% 6.4(H) 4.0 - 6.0 % [facility] Average Calculated 133(H) 60 - 115 mg/dL [facility] 03/09/2022 9:15 EDT us Yesenia Morales NP CHEMISTRY & BLOOD GAS ORDERABLES Final Result Performing Organization Address City/State/[facility] Co de Phone Number [facility] [address] [place] [address] documented in this encounter Visit Diagnoses Not on filedocumented in this encounter Care Teams Diathermy Equipment Repairer Relationship Specialty Start Date End Date Yesenia Morales NP [address] [place] [phone] PCP - General 06/14/21 documented as of this encounter
--- OUTSIDE RECORDS SUMMARY | 2024-08-01 21:58 | XMS_ITS | Encounter Summary ---
Author Organization [facility] Address [address] [place] [address] Care Team Providers Care Dough Scaler And Mixer Name Role Phone CarlineYesenia trejo MOHAN Primary Care Provider [phone] Reason for Visit * Reason Onset Date Comments Other 03/10/2022 NEEDS MRI REVIEW APPT--WAS A SB PATIENT--MRI TO B DONE ON 03/17/22 Encounter Details Date Type Department Care Team (Late st Contact Info) Description 03/10/2022 Telephone [facility] - [facility] Orthopedics & Sport Medicine [address] [place] [address] Corrie Zavala PA-C [address] [facility] [address] [place] [address] Other (NEEDS MRI REVIEW APPT--WAS A SB PATIENT--MRI TO B DONE ON 03/17/22) Social History Tobacco Use Types Packs/Day Years [...] encounter Miscellaneous Notes * Telephone Encounter - Nicky Anglin LPN - 03/15/2022 1526 EDT Pt last seen by Hattie Powell NP in F/U 02/16/22 Plan ?? 1. Cervical MRI 2. Follow-up when the above is completed I called pt, offered first available late in day, 14:30 appt and add to cancellation list, acceptedOct at 14:30, pt happy with that plan. * Telephone Encounter - Riya Dennis - 03/10/2022 1538 EDT Having MRI on 03/17/22. Called in to schedule MRI review. SB is gone and he needs an appt after 3 pmand is an hour away. 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 He was open to a televisit, but unsure if he can do that during work hours. Please call to discuss. Thanks documented in this encounter Plan of Treatment Not on file documented as of this encounter Visit Diagnoses Not on filedocumented in this encounter Care Teams Dough Scaler And Mixer Relationship Specialty Start Date End Date Yesenia Morales NP [address] [place] [phone] PCP - General 06/14/21 documented as of this encounter
--- OUTSIDE RECORDS SUMMARY | 2024-08-01 21:58 | XMS_ITS | Encounter Summary ---
Author Organization [facility] Address [address] [place] [address] Care Team Providers Care Printed Circuit Boards Router Name Role Phone Yesenia Morales NP Primary Care Provider [phone] Reason for Referral * Referral (Routine/Next Available) - Closed Specialty Diagnoses / Procedures [facility] Referred To Contact Pain Medicine Diagnoses Facet arthropathy, lumbar Lumbar pain Procedures MEDIAL BRANCH BLOCK Hattie Powell NP Phone: tel: fax: [facility] [address] [place] [address] Phone: tel: Referral ID Status Reason Start Date Expiration Date Visits Re quested Visits Authorized [id number] Closed 09/20/2021 1 1 Reason for Visit * Auth/Cert Specialty Diagnoses / Procedures [facility] Referred To Contact Referral ID Status Reason Start Date Expiration Date Visits Re quested Visits Authorized [id number] 1 1 Encounter Details Date Type Department Care Team (Latest Contact Info) Description 04/01/2022 13:26 EDT Hospital Encounter [facility] [address] [place] [id number] Clark Oliva MD [address] [place] [address] [address] [place] [address] Spondylosis without myelopathy or radiculopathy, [...] this encounter Discharge Instructions * Discharge Instructions* Nisah Manzanares RN - 04/01/2022 14:22 EDT [facility] [place] [address] Medial Branch/Genicular Nerve Block Patient Instructions ??? Today you underwent a procedure called [...] Monday to review these results. PROCEDURE END TIME:___2:20PM (to be completed by the nurse) PAIN [...] hours or on the weekend, please call [facility] Provider Access line at , ask them [...] Progress Notes * Clark Oliva MD - 04/01/2022 1430 EDT Patient Name: Diogo Martinez : 1970 Date of Service: 03/31/2022 Construction Safety Manager: Clark Oliva MD Food And Drug Research Scientist: None Procedure: Diagnostic medial branch blocks at [...] and new imaging were reviewed. Injection History: 03/31/2022: L4, L5, SA MBBs bilaterally 03/18/2022: L4, L5, SA MBBs bilaterally: 80% relief > 12 hours Allergies: Allergies Allergen Reactions ??? Cortisone Insomnia Steroids ??? Erythromycin Nausea And Vomiting Physical Exam: Vitals: There were no vitals taken for this visit. General: Patient is alert and oriented, no acute distress Lungs: symmetric chest rise, no evidence of labored breathing Skin: clear, warm, dry and intact and no rashes, bruises or petechiae noted Lumbar Spine: Positive facet loading Assessment: 1. Spondylosis without myelopathy or radiculopathy, lumbar region Plan: Mr. Diogo Martinez is a 51 [...] and post pain scores. Clark Oliva MD 03/31/2022 13:27 * Nisha Manzanares RN - 04/01/2022 1430 EDT Patient stable following procedure. V/U of d/c instructions. Meets requirements for d/c, ride present at discharge. documented in this encounter OR Notes * Preprocedure Instructions - Padmini Adame RN - 04/01/2022 1430 EDT Phone call related to scheduling appointment. Appointment scheduled with on 04/01/22. Reminded patient of the following items: -Patient must have a distribution driver to be present at drop off and picking supervisor for their appointment. -Patient needs to arrive [...] Fasting Instructions as applicable, list exceptions below: Do not take any pain medication the morning of procedure that may mask results. Ok to continue all other medications. Patient advised to call our clinic if they develop any new symptoms, concerns for infection, skin issues, or the need to reschedule their appointment. If they have any questions regarding medication holds, they should contact the clinic to speak withnurse. Directions and clinic phone number [phone] were provided to patient as needed. documented in this encounter Plan of Treatment Scheduled Orders Name Type Priority Associated Diagnoses Orde r Schedule MEDIAL BRANCH BLOCK Procedures Routine Facet arthropathy, lumbar Lumbar pain 1 Occurrences starting 04/01/2022 until 04/01/2022 documented as of this encounter Visit Diagnoses [...] mL, marla-neural, NOW X1, 1 dose, On Mon04/01/22 at 1430, Routine, Intraprocedure Given by Other 04/01/2022 14:13 EDT 3 mL documented in this encounter Orders Medications Ordered That Ki ht Not Have Been Administered Count Last Ordered Date First Ordered Date bupivacaine (PF) (MARCAINE) 0.5% injection 3 mL 1 04/01/2022 documented in this encounter Care Teams Printed Circuit Boards Router Relationship Specialty Start Date End Date Yesenia Morales NP [address] [place] [phone] PCP - General 06/14/21 documented as of this encounter
--- OUTSIDE RECORDS SUMMARY | 2024-08-01 21:58 | XMS_ITS | Encounter Summary ---
Author Organization [facility] Address [address] [place] [address] Care Team Providers Care Hot Billet Shear Operator Name Role Phone Yesenia Morales NP Primary Care Provider [phone] Encounter Details Date Type Department Care Team (Late st Contact Info) Description 10/04/2021 Results Only [facility] Services - [facility] [address] [place] [address] Yesenia Morales NP [address] [place] [address] Social History Tobacco Use Types [...] Procedure Name Priority Date/Time Associated Diagnosis Comments BASIC METABOLIC PANEL (BMP) Routine 10/04/2021 16:17 EDT documented in this encounter Results * (ABNORMAL) BASIC METABOLIC PANEL (BMP) (10/04/2021 16:17 EDT) Glucose 119.00(H) 70.00 - 100.00 mg/dL [facility] Bun 20.00 7.00 - 20.00 mg/dL [facility] Creatinine 1.00 0.70 - 1.50 mg/dL [facility] Estimated GFR >60 [facility] Comment: Chronic renal impairment is defined as GFR <60 Multiply result by 1.210 for patients eGFR calculated using the IDMS-traceable MDRD study Sodium 139.00 137.00 - 145.00 mmol/L [facility] Potassium 4.40 3.50 - 5.10 mmol/L [facility] Chloride 108.00(H) 98.00 - 107.00 mmol/L [facility] Carbon Dioxide 25.00 22.00 - 30.00 mmol/L [facility] Calcium 8.80 8.50 - 10.50 mg/dL [facility] Anion Gap 6(L) 7 - 17 mmol/L [facility] 10/04/2021 16:1 7 EDT us Yesenia Morales NP CHEMISTRY & BLOOD GAS ORDERABLES Final Result [facility] [address] [place] [address] documented in this encounter Visit Diagnoses Not on filedocumented in this encounter Care Teams Hot Billet Shear Operator Relationship Specialty Start Date End Date Yesenia Morales NP [address] [place] [phone] PCP - General 06/14/21 documented as of this encounter
--- OUTSIDE RECORDS SUMMARY | 2024-08-01 21:58 | XMS_ITS | Encounter Summary ---
Author Organization [facility] Address [address] [place] [address] Care Team Providers Care Tent Worker Name Role Phone Yesenia Morales NP Primary Care Provider [phone] Reason for Referral * Radiology Services (Routine/Next Available) - Authorization Not Required Specialty Diagnoses / Procedures Referred By Sajan calix Referred To Contact Diagnoses Facet arthropathy, lumbar Procedures FL C-ARM BLOCK/INJECTION IN CLINIC Clark Oliva MD Phone: tel: fax: [facility] Referral ID Status Reason Start Date Expiration Date Visits Requested Visits Authorized [id number] Authorization Not Required 03/31/2022 1 1 Reason for Visit * Auth/Cert Specialty Diagnoses / Procedures [facility] Referred To Contact Referral ID Status Reason Start Date Expiration Date Visits Re quested Visits Authorized [id number] 1 1 Encounter Details Date Type Department Care Team (Latest Contact Info) Description 04/01/2022 13:27 EDT - 04/01/2022 23:59 EDT Hospital Encounter [facility] Xray [address] [place] [address] Facet arthropathy, lumbar Discharge Disposition: Home or [...] Comments FL C-ARM BLOCK/INJECTION IN CLINIC Routine 04/01/2022 14:22 EDT Facet arthropathy, lumbar documented in this encounter Results * FL C-ARM BLOCK/INJECTION IN CLINIC (04/01/2022 14:22 EDT) Narrative 04/01/2022 14:22 EDT This is a non-reportable exam. us Clark Oliva MD IMG FLUOROSCOPY ORDERABLES Yolis l Result documented in this encounter Visit Diagnoses Diagnosis Facet arthropathy, lumbar Lumbosacral spondylosis without myelopathy documented in this encounter Care Teams Tent Worker Relationship Specialty Start Date End Date Yesenia Morales NP [address] [place] [address] PCP - General 06/14/21 documented as of this encounter
--- OUTSIDE RECORDS SUMMARY | 2024-08-01 21:58 | XMS_ITS | Encounter Summary ---
Author Organization [facility] Address [address] [place] [address] Care Team Providers Care Parks Recreation Director Name Role Phone Yesenia Morales NP Primary Care Provider [phone] Encounter Details Date Type Department Care Team (Late st Contact Info) Description 10/04/2021 Results Only [facility] Laboratory Services - [facility] [address] [place] [address] Yesenia Morales NP [address] [place] [address] Social History Tobacco Use Types [...] Priority Date/Time Associated Diagnosis Comments MAGNESIUM Routine 10/04/2021 16:17 EDT documented in this encounter Results * MAGNESIUM (10/04/2021 16:17 EDT) Magnesium 1.90 1.60 - 2.30 mg/dL [facility] 10/04/2021 16:1 7 EDT us Yesenia Morales NP CHEMISTRY & BLOOD GAS ORDERABLES Final Result [facility] [address] [place] [address] documented in this encounter Visit Diagnoses Not on filedocumented in this encounter Care Teams Parks Recreation Director Relationship Specialty Start Date End Date Yesenia Morales NP [address] [place] [phone] PCP - General 06/14/21 documented as of this encounter
--- OUTSIDE RECORDS SUMMARY | 2024-08-01 21:59 | XMS_ITS | Encounter Summary ---
Author Organization [facility] Address [address] [place] [address] Care Team Providers Care Legal Administrative Secretary Name Role Phone Chip Damon MD Primary Care Provider [phone] Yesenia Morales NP Primary Care Provider [phone] Encounter Details Date Type Department Care Team (Late st Contact Info) Description 12/27/2019 Lab Requisition [facility] Pathology & Laboratory Medicine - [facility] [address] [place], [place] [id number] Outr Resulting Lab, Provider Social History Tobacco Use Types Packs/Day Years Used Date Smoking Tobacco: Never Assessed Sex and Gender Information Value Date Recorded Sex Assigned at Male 07/02/2024 10:33 EST Legal Sex Male 17:50 EST Gender Identity Male 05/11/2021 15:39 EDT Sexual Orientation Not on file documented as of this encounter Plan of Treatment Not on file documented as of this encounter Procedures Procedure Name Priority Date/Time Associated Diagnosis Comments CALCIUM, IONIZED Routine 12/27/2019 14:0 1 EDT documented in this encounter Results * (ABNORMAL) CALCIUM, IONIZED (12/27/2019 14:01 EDT) Calcium, Ionized 0.90(L) 1.12 - 1.32 mmol/L 12/27/2019 20:48 EDT [facility] Comment:Testing performed on heparinized plasma. Results may be biased 5% lower than that of whole blood. Blood VENOUS BLOOD / Unknown 12/27/2019 14:01 EDT 12/27/2019 20:41 EDT us Provider Outr Resulting Lab CHEMISTRY & BLOOD GA S ORDERABLES Final Result [facility] [address] [place] [address] documented in this encounter Visit Diagnoses Not on filedocumented in this encounter Care Teams Legal Administrative Secretary Relationship Specialty Start Date End Date Chip Damon MD [address] [facility] [address] [place] [address] PCP - General 03/07/12 06/13/21 Yesenia Morales NP [address] [place] [phone] PCP - General 06/14/21 documented as of this encounter
--- OUTSIDE RECORDS SUMMARY | 2024-08-01 21:59 | XMS_ITS | Encounter Summary ---
Author Organization [facility] Address [address] [place] [address] Care Team Providers Care Auto Job Estimator Name Role Phone Yesenia Morales NP Primary Care Provider [phone] Reason for Visit * Reason Onset Date Comments Other 08/13/2021 Encounter Details Date Type Department Care Team (Late st Contact Info) Description 08/13/2021 Telephone [facility] [address] [place] [address] Hattie Powell NP [address] [place] [address] [place] [address] Other Social History Tobacco Use Types Packs/Day Years Used Date Smoking Tobacco: Every Day Cigarettes Smokeless Tobacco: Never Sex and Gender Information Value Date Recorded [...] Telephone Encounter - Nicky Anglin LPN - 08/26/2021 1519 EST Pt has appt with Dr Macias 09/03/21 * Telephone Encounter - Nicky Anglin LPN - 08/19/2021 1524 EST VM left for pt to return my call. * Telephone Encounter - Nicky Anglin LPN - 08/16/2021 1415 EST Called pt left VM re Hattie's advice, ask pt to call back. * Telephone Encounter - Hattie Powell APRN - 08/16/2021 0724 EST If he is doing well, he can certainly cancel the KATELYNN and follow-up as needed - if pain returns, likely he would need to see General ortho for hip evaluation, but he can let us know and we can help facilitate that. * Telephone Encounter - Nicky Anglin LPN - 08/13/2021 1638 EST Pt leaves VM today, states he had his hip injection and it worked wonders, wonders if he should still do lumbar injection. Pt last seen in F/U 06/22/21 Plan ?? 1. Proceed with left intra-articular hip injection as scheduled for 07/09/2021 2. Left L4-5 KATELYNN 3. Follow-up with me when the above is completed ?? FL guided injection done 07/09/21, does not have KATELYNN scheduled yet. Hattie, advice? documented in this encounter Plan of Treatment Not on file documented as of this encounter Visit Diagnoses Not on filedocumented in this encounter Care Teams Auto Job Estimator Relationship Specialty Start Date End Date Yesenia Morales NP [address] [place] [phone] PCP - General 06/14/21 documented as of this encounter
--- OUTSIDE RECORDS SUMMARY | 2024-08-01 21:59 | XMS_ITS | Encounter Summary ---
Author Organization [facility] [place] [address] Care Team Providers Care University Teacher Name Role Phone Jamshid Turk MD Primary Care Provider [phone] Encounter Details Date Type Department Care Team (Late st Contact Info) Description 03/17/2022 Ancillary Procedure Radiology Library at [facility] [place] [phone] Rigo Lind MD [address] [place] [address] Social History Tobacco Use Types Packs/Day Years Used Date Smoking Tobacco: Never Assessed Sex and Gender Information Value Date Recorded Sex Assigned at Not on file Gender Identity Not on file Sexual Orientation Not on file documented as of this encounter Plan of Treatment Not on file documented as of this encounter Procedures Procedure Name Priority Date/Time Associated Diagnosis Comments FILM LIBRARY STORAGE ONLY MR SPINE Routine 03/17/2022 12:00 AM EDT documented in this encounter Results * Film Library- Storage Only MR Spine (03/17/2022 12:00 AM EDT) Narrative RAD - 08/26/2022 10:55 AM EST This exam is auto-finalizing. It's purpose is for storage only. Rigo Lind MD G FILM LIBRARY ORD ERABLES [place], [place] documented in this encounter Visit Diagnoses Not on filedocumented in this encounter Care Teams University Teacher Relationship Specialty Start Date End Date Jamshid Turk MD [address] [place] [address] PCP - General 06/15/10 documented as of this encounter
--- OUTSIDE RECORDS SUMMARY | 2024-08-01 21:59 | XMS_ITS | Encounter Summary ---
Author Organization [facility] [place] [address] Care Team Providers Care Biscuit Factory Worker Name Role Phone Jamshid Turk MD Primary Care Provider [phone] Reason for Visit * Reason Onset Date Comments Appointment 04/08/2024 Appointment Encounter Details Date Type Department Care Team (Late st Contact Info) Description 04/08/2024 Telephone [facility] [place] [phone] Hattie Powell APRN [facility] [place] [address] Appointment (Appointment) Social History Tobacco Use Types Packs/Day Years Used Date Smoking Tobacco: Every Day Cigarettes Smokeless Tobacco: Never Sex and Gender Information Value Date Recorded Sex Assigned at Not on file Gender Identity Not on file Sexual Orientation Not on file documented as of this encounter Miscellaneous Notes * Telephone Encounter - Annie Solis - 04/15/2024 2:30 PM EDT Called/Lm for pt to call & schedule a f/u appt with Hattie Powell after he had his Epidural procedure on 11/03/23 [place] [facility] - Returning pt's request from 04/08/24 to call [phone] * Telephone Encounter - Esthela Rosenthal - 04/08/2024 12:28 PM EDT CLINIC PHONE COVERAGE: Reason for Call: Appointment Scheduling PCP: Jamshid Turk MD (Inactive) / Treating provider: Hattie Powell APRN Message: Diogo Barba called and is requesting to schedule a Follow Up Reason for Visit: FUV after RFA and Cervical Epidural. No relief Caller Name (If other than patient): Diogo Barba Relationship to Patient (if other than self): Patient Callback number: [phone] Best time you are available: Any Route Per Clinic Coverage Page documented in this encounter Plan of Treatment Not on file documented as of this encounter Visit Diagnoses Not on filedocumented in this encounter Care Teams Biscuit Factory Worker Relationship Specialty Start Date End Date Jamshid Turk MD [address] [place] [address] PCP - General 06/15/10 documented as of this encounter
--- OUTSIDE RECORDS SUMMARY | 2024-08-01 21:59 | XMS_ITS | Encounter Summary ---
Author Organization [facility] Address [address] [place] [address] Care Team Providers Care Tip Fixer Name Role Phone Yesenia Morales NP Primary Care Provider Encounter Details Date Type Department Care Team (Latest Contact Info) Description 06/22/2021 Travel Social History Tobacco Use Types Packs/Day [...] have Coronavirus / COVID-19? No / Unsure 06/22/2021 16:16 EST documented as of this encounter Functional [...] on filedocumented in this encounter Care Teams Tip Fixer Relationship Specialty Start Date End Date Yesenia Morales NP [address] [place] [phone] PCP - General 06/14/21 documented as of this encounter
--- OUTSIDE RECORDS SUMMARY | 2024-08-01 21:59 | XMS_ITS | Encounter Summary ---
Author Organization [facility] [place] [address] Care Team Providers Care Community Relations Assistant Name Role Phone Jamshid Turk MD Primary Care Provider [phone] Encounter Details Date Type Department Care Team (Late st Contact Info) Description 12/27/2019 Tele[place] [address] Brett Tsang MD Social History Tobacco Use Types Packs/Day Years Used Date Smoking Tobacco: Never Assessed Sex and Gender Information Value Date Recorded Sex Assigned at Not on file Gender Identity Not on file Sexual Orientation Not on file documented as of this encounter Miscellaneous Notes * Telephone Encounter - Brett Tsang MD - 12/27/2019 1:04 PM EDT Images from the original note were not included. 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, alcohol related pancreatitis with end-organ failure Plan: - Needs more aggressive volume resuscitation - Would given albumin as well - Goal UOP is 1 cc/kg/hr - If respiratory status worsens would move to stepdown/ICU - Keep NPO - Will likely require nasojejunal tube for enteral nutritional support vs IR placed J tube - No signs of infection, cultures are pending, agree with holding antibiotics for now - Reasonable to discuss possibility of transfer to [facility] for higher level of care - There is no indication for endoscopic intervention at this time, care is supportive documented in this encounter Plan of Treatment Not on file documented as of this encounter Visit Diagnoses Not on filedocumented in this encounter Care Teams Community Relations Assistant Relationship Specialty Start Date End Date Jamshid Turk MD [address] [place] [address] PCP - General 06/15/10 documented as of this encounter
--- OUTSIDE RECORDS SUMMARY | 2024-08-01 21:59 | XMS_ITS | Encounter Summary ---
Author Organization [facility] Address [address] [place] [address] Care Team Providers Care Floor Sanding Machine Operator Name Role Phone Chip Damon MD Primary Care Provider [phone] Yesenia Morales NP Primary Care Provider [phone] Encounter Details Date Type Department Care Team (Late st Contact Info) Description 10/12/2020 Lab Requisition [facility] Pathology & Laboratory Medicine - [facility] [address] [place], [place] [id number] Outr Resulting Lab, Provider Social History Tobacco [...] Procedure Name Priority Date/Time Associated Diagnosis Comments T3 FREE Routine 10/12/2020 15:20 EDT documented in this encounter Results * T3 FREE (10/12/2020 15:20 EDT) T3, Free 3.6 2.8 - 5.3 pg/mL 10/12/2020 21:20 EDT [facility] Comment:Turbid sample identi fied, interpret with caution as turbidity may affect result. Blood VENOUS BLOOD / Unknown 10/12/2020 15:20 EDT 10/12/2020 20:47 EDT us Provider Outr Resulting Lab CHEMISTRY & BLOOD GA S ORDERABLES Final Result [facility] [address] [place] [address] documented in this encounter Visit Diagnoses Not on filedocumented in this encounter Care Teams Floor Sanding Machine Operator Relationship Specialty Start Date End Date Chip Damon MD [address] [place] [address] PCP - General 03/07/12 06/13/21 Yesenia Morales NP [address] [place] [phone] PCP - General 06/14/21 documented as of this encounter
--- OUTSIDE RECORDS SUMMARY | 2024-08-01 21:59 | XMS_ITS | Encounter Summary ---
Author Organization [facility] Address [address] [place] [address] Care Team Providers Care Van Loader Name Role Phone Chip Damon MD Primary Care Provider [phone] Yesenia Morales NP Primary Care Provider [phone] Encounter Details Date Type Department Care Team (Late st Contact Info) Description 05/24/2021 Results Only Imaging [facility] Radiology Results [address] [place] [address] Hattie Powell, MOHAN [address] [place] [address] [place] [phone] Social History Tobacco Use Types Packs/Day Years [...] have Coronavirus / COVID-19? No / Unsure 05/11/2021 15:50 EDT documented as of this encounter [...] Procedure Name Priority Date/Time Associated Diagnosis Comments NM BONE WHOLE BODY SINGLE ZONE WITH SPECT/CT 05/24/2021 15:19 EDT documented in this encounter Results * NM BONE WHOLE BODY SINGLE ZONE WITH SPECT/CT (05/24/2021 15:19 EDT) Anatomical Region Laterality Modality Nuclear Medicine 05/24/2021 15:1 6 EDT Narrative 05/24/2021 15:19 EDT ? EXAM: NUCLEAR MEDICINE/BONE SPECT WITH WH EX. D/ (1257) ? CLINICAL INFORMATION: ? M25.552/M25.551 BILATERAL HIP PAIN ? INDICATION: M25.552/M25.551 BILATERAL HIP PAIN . ? TECHNIQUE: Radionuclide SPECT scan of the pelvis and hips with total ? body bone scan was performed with 20.2 mCi of technetium 99m MDP. ? Low-dose CT scan was utilized for localization purposes. ? COMPARISON: Pelvis and left hip radiograph 02/01/2021. ? FINDINGS: ? Fused SPECT: Mild degenerative disc disease and facet arthrosis is ? present throughout the lumbar spine. There is mild increased ? radiotracer uptake within the right and left L4-L5 facet joints. ? Bilateral hip osteoarthritis is present. There is increased ? radiotracer uptake within the right and left acetabulum. No abnormal ? increased radiotracer uptake is present within either femoral head. ? Total body bone scan: Increased radiotracer uptake within the right ? and left sternoclavicular, acromioclavicular and hip joints is ? consistent with osteoarthritis. There is increased radiotracer uptake ? within the left maxilla. This is indeterminant and well likely ? secondary to dentition requires clinical correlation. This could be ? further evaluated with conventional radiography or CT scan as ? clinically warranted. A small focus of increased uptake within the ? right hand is likely degenerative. A tiny focus of increased uptake ? within the right mid foot is likely degenerative. These areas could ? be further evaluated with conventional radiography. ? Limited low-dose localizing CT: There is advanced osteoarthritis ? within both hips. Bilateral femoral head osteonecrosis is present. A ? right inguinal hernia containing fat is present. ? IMPRESSION: ? 1. Mild increased radiotracer uptake within the right and left L4-L5 ? facet joints. ? 2. Bilateral hip osteoarthritis with increased radiotracer uptake ? within both acetabulum. ? 3. Bilateral femoral head osteonecrosis without increased radiotracer ? uptake. ? 4. Increased radiotracer uptake within the left maxilla, ? indeterminate. While this is likely secondary to dentition, other ? etiologies are not excluded and close clinical correlation and ? possible additional imaging is recommended (as clinically warranted). ? 5. Increased radiotracer uptake within the sternoclavicular and ? acromioclavicular joints consistent with osteoarthritis. ? 6. Increase uptake within the right hand and right midfoot, ? PAGE 1 ? Signed Report ? (CONTINUED) ? indeterminate but likely degenerative. These areas could be further ? evaluated with conventional radiography. ? REPORT SIGNED IN OTHER VENDOR SYSTEM 05/24/2021 ?Reported By: Ilia Andrew MD ? CC: Hattie Powell STEEL SASH ERECTOR-BC ? Transcribed Date/Time: 05/24/2021 (3579) ? Wet Wash Assembler: ? Printed Date/Time: 05/24/2021 (0700) ? PAGE 2 ? Signed Report ? Procedure Note Ilia Andrew MD - 05/24/2021 EXAM: NUCLEAR MEDICINE/BONE SPECT WITH WH EX. D/ (1257) CLINICAL INFORMATION: M25.552/M25.551 BILATERAL HIP PAIN INDICATION: M25.552/M25.551 BILATERAL HIP PAIN . TECHNIQUE: Radionuclide SPECT scan of the pelvis and hips withtotal body bone scan was performed with 20.2 mCi of technetium 99m MDP. Low-dose CT scan was utilized for localization purposes. COMPARISON: Pelvis and left hip radiograph 02/01/2021. FINDINGS: Fused SPECT: Mild degenerative disc disease and facet arthrosis is present throughout the lumbar spine. There is mild increased radiotracer uptake within the right and left L4-L5 facet joints. Bilateral hip osteoarthritis is present. There is increased radiotracer uptake within the right and left acetabulum. Noabnormal increased radiotracer uptake is present within either femoral head. Total body bone scan: Increased radiotracer uptake within the right and left sternoclavicular, acromioclavicular and hip joints is consistent with osteoarthritis. There is increased radiotraceruptake within the left maxilla. This is indeterminant and well likely secondary to dentition requires clinical correlation. This could be further evaluated with conventional radiography or CT scan as clinically warranted. A small focus of increased uptake within the right hand is likely degenerative. A tiny focus of increased uptake within the right mid foot is likely degenerative. These areas could be further evaluated with conventional radiography. Limited low-dose localizing CT: There is advanced osteoarthritis within both hips. Bilateral femoral head osteonecrosis is present.A right inguinal hernia containing fat is present. IMPRESSION: 1. Mild increased radiotracer uptake within the right and leftL4-L5 facet joints. 2. Bilateral hip osteoarthritis with increased radiotracer uptake within both acetabulum. 3. Bilateral femoral head osteonecrosis without increasedradiotracer uptake. 4. Increased radiotracer uptake within the left maxilla, indeterminate. While this is likely secondary to dentition, other etiologies are not excluded and close clinical correlation and possible additional imaging is recommended (as clinicallywarranted). 5. Increased radiotracer uptake within the sternoclavicular and acromioclavicular joints consistent with osteoarthritis. 6. Increase uptake within the right hand and right midfoot, PAGE 1 Signed Report (CONTINUED) indeterminate but likely degenerative. These areas could be further evaluated with conventional radiography. REPORT SIGNED IN OTHER VENDOR SYSTEM 05/24/2021 Reported By: Ilia Andrew MD CC: Hattie PowellP-BC Transcribed Date/Time: 05/24/2021 (0288) Wet Wash Assembler: Printed Date/Time: 05/24/2021 (159) PAGE 2 Signed Report us Hattie Powell ENVIRONMENTAL EMERGENCIES PLANNER IMG NM ORDERABLES Final Resul t documented in this encounter Visit Diagnoses Not on filedocumented in this encounter Care Teams Van Loader Relationship Specialty Start Date End Date Chip Damon MD [address] [address] PCP - General 03/07/12 06/13/21 Yesenia Morales NP [address] [place] [phone] PCP - General 06/14/21 documented as of this encounter
--- OUTSIDE RECORDS SUMMARY | 2024-08-01 21:59 | XMS_ITS | Encounter Summary ---
Author Organization [facility] Address [address] [place] [address] Care Team Providers Care Animal Care Specialist Name Role Phone Chip Damon MD Primary Care Provider [phone] Yseenia Morales NP Primary Care Provider [phone] Encounter Details Date Type Department Care Team (Late st Contact Info) Description 12/26/2019 Lab Requisition [facility] Pathology & Laboratory Medicine - [facility] [address] [place], [place] [address] Outr Resulting Lab, Provider Social History Tobacco [...] Procedure Name Priority Date/Time Associated Diagnosis Comments ZZCOVID-19 TEST [facility] PCR Today 12/26/2019 0:55 EDT COVID-19 TESTING Routine 12/26/2019 0:55 EDT documented in this encounter Results * COVID-19 TEST [facility] PCR (12/26/2019 0:55 EDT) Swab ENTIRE NASOPHARYNX / Unknown 12/26/2019 0:55 EDT 12/26/2019 8:28 EDT us Provider Outr Resulting Lab MICROBIOLOGY - GENER AL ORDERABLES Final Result Performing Organization Address [facility] de Phone Number [facility] [address] [place] [address] * COVID-19 TESTING (12/26/2019 0:55 EDT) COVID-19 rt-PCR Result Negative Negative 12/26/2019 12:20 EDT [facility] Comment: This test has not been FDA cleared or approved. This test has been authorized by FDA under an EUA for use by authorized laboratories. This test has been authorized only for detection of nucleic acid from 2019-nCoV, not for any other viruses or pathogens. This test is only authorized for the duration of the declaration that circumstances exist justifying the authorization of emergency use of in vitro diagnostic tests for detection and/or diagnosis of 2019-nCoV under section 564(b)(1) of Act, 21 U.S.C ?? 360bbb-3(b) (1), unless the authorization is terminated or revoked sooner. Negative results do not preclude 2019-nCoV infection and should not be used as the sole basis for treatment or other patient management decisions. Negative results must be combined with clinical observations, patient history, and epidemiological information. Performed on the [employer] Fusion instrument Performing Lab [facility] 12/26/2019 12:20 EDT [facility] Swab ENTIRE NASOPHARYNX / Unknown 12/26/2019 0:55 EDT 12/26/2019 8:28 EDT us Provider Outr Resulting Lab MICROBIOLOGY - GENER AL ORDERABLES Final Result Performing Organization Address City/[facility]/ZIP Co de Phone Number [facility] [address] [place] [address] documented in this encounter Visit Diagnoses Not on filedocumented in this encounter Care Teams Animal Care Specialist Relationship Specialty Start Date End Date Chip Damon MD [address] [place] [address] PCP - General 03/07/12 06/13/21 Yesenia Morales NP [address] [place] [phone] PCP - General 06/14/21 documented as of this encounter
--- OUTSIDE RECORDS SUMMARY | 2024-08-01 21:59 | XMS_ITS | Encounter Summary ---
Author Organization [facility] [place] [address] Care Team Providers Care Shipwright Helper Name Role Phone Jamshid Turk MD Primary Care Provider [phone] Encounter Details Date Type Department Care Team (Latest Contact Info) Description 09/01/2022 Travel Social History Tobacco Use Types Packs/Day [...] on filedocumented in this encounter Care Teams Shipwright Helper Relationship Specialty Start Date End Date Jamshid Turk MD [address] [place] [address] PCP - General 06/15/10 documented as of this encounter
--- OUTSIDE RECORDS SUMMARY | 2024-08-01 21:59 | XMS_ITS | Encounter Summary ---
Author Organization [facility] [place] [address] Care Team Providers Care Ent Nurse Name Role Phone Jamshid Turk MD Primary Care Provider [phone] Reason for Referral * Consultation (Routine) - Closed Specialty Diagnoses / Procedures Referred By Contac t Referred To Contact Pain and Spine Center Diagnoses Spondylosis of lumbar region without myelopathy or radiculopathy Hattie Powell APRN [facility] [place] [address] Pain Clinic, [facility] [address] [place] [address] Referral ID Status Reason Start Date Expiration Date Visits Requested Visits Authorized [id number] Closed Pain Interventional Procedure Non PCP 08/03/2023 01/30/2024 1 1 Reason for Visit * Reason Comments Follow-up F/U to discuss next steps Encounter Details Date Type Department Care Team (Latest Contact Info) Description 08/03/2023 3:30 PM EST Office Visit [place] [address] Hattie Powell APRN [facility] [place] [address] Spondylosis of lumbar region without myelopathy or radiculopathy Social History Tobacco Use Types Packs/Day [...] - Inhaled Oxygen Concentration - - Weight 68 kg (150 lb) 08/03/2023 3:29 PM EST Height 167.6 cm (5' 6) 08/03/2023 3:29 PM EST Body Mass Index 24.21 08/03/2023 3:29 PM EST documented in this encounter Progress Notes * Hattie Powell, DRAFTER CHIEF DESIGN - 08/03/2023 3:30 PM EST [facility] Medical Decision Making: Diogo Barba is a pleasant 52 y.o. male seen today for a chief complaint of recurrent axial lower back pain likely associated with degenerative facet changes spanning L4-S1 that in the past, has been nicely treated with lumbar RFA spanning L4 to the sacral ala. He is interested in having this repeated given the recurrent symptoms. He would like for this to be performed at [facility] where he had his previous RFA. I discussed with the patient that this was perfectly fine given that he has continued with his home exercise program as well as supplementing with Tylenol and ibuprofen. I will place an appropriate referral to the [facility] pain clinic to have this repeated and I am happy to touch base with the patient once this is completed. Justification of Medical Necessity MBB/RFA: Facet generated pain is located bilaterally. There is no radicular component or neurogenic claudication present.. Repeat RFA is recommended at this time based on 80% improvement response to last RFA performed on 04/15/2022, 05/13/2022 and continued compliance with conservative treatment. Diagnosis: ICD-10-CM 1. Spondylosis of lumbar region without myelopathy or radiculopathy M47.816 Referral to Pain Management Plan Repeat RFA L4-S1 bilaterally Follow-up with me 6 to 8 weeks after the above is completed via telehealth visit HPI Diogo Barba is a 52 y.o. male last seen by me on 09/01/2022 and at that time, it was specifically to target some cervical radicular complaints. He reported neck pain radiating to the bilateral upper extremities on the right greater than the left associated with a disc protusion at C5-6 and to a lesserextent, C6-7. We agreed on moving forward with a cervical epidural steroid injection. Today, he reports really no significant improvement after the injection. He has been working with PT and does feel as though the neck symptoms are relatively calm. What has become more bothersome is recurrent lower back pain that previously had been nicely treated with lumbar RFA spanning L4 to the sacral ala. He does feel as though the RFA has been wearing off and he is interested in having this repeated given that it gave him excellent improvement in his lower back pain for an extended period of time. He does report that he has continued with his home exercise program since his injections as well as supplementing with Tylenol and ibuprofen. ROS A five point review of systems was completed today and, of note, pertinent positive and negatives are indicated in the HPI. reports that he has been smoking cigarettes. He has been smoking an average of 1 pack per day. He has never used smokeless tobacco. Conservative Treatment: Physical Therapy: He has engaged with physical therapy in the past and has been given a dedicated home exercise program Home Exercise Program: He has continued his home exercise program daily as tolerated since his lastinjection and RFA Medications: Tylenol Ibuprofen Meloxicam Celebrex Gabapentin Other Treatments: None Injections: 11/03/2022: C7-T1 KATELYNN -0% 05/13/2022: lumbar radiofrequency ablation at L4, L5, SA on the right - 80% for about 1 year with improved performance of ADLs 04/15/2022: lumbar radiofrequency ablation at L4, L5, SA on the left -80% relief for 1 year with improved performance of ADLs 03/31/2022: L4, L5, SA MBBs bilaterally: 80% relief >12 hours 03/18/2022: L4, L5, SA MBBs bilaterally: 80% relief > 12 hours Physical Examination Wt Readings from Last 1 Encounters: 08/03/23 68 kg (150 lb) BMI Readings from Last 1 Encounters: 08/03/23 24.21 kg/m?? Pain: 4 (past 7 days pain lvl at lowest 4, highest 8) General: Pleasant, cooperative, Mood and affect are appropriate Posture: Upright Gait: Nonantalgic Palpation: Deferred Skin: Intact with no stigmata of underlying disease. ROM: Full with increased discomfort upon extension and rotation Sensation: Grossly intact throughout all dermatomes Neuro: Strength: 5/5 throughout all muscle groups Reflexes: 2+ at the knees and the ankles Provocative Maneuvers: Facet loading Maneuvers: Positive with increased discomfort on extension and rotation Imaging and Test Review: On the day of this encounter, I reviewed an EMG performed by Dr. Silveira at [facility] demonstrating an abnormal study. 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 No evidence of active denervation. Theisolated chronic reinnervation in the left first dorsal interosseous might be consistent with mild chronic C8 or T1 radiculopathy or remote ulnar neuropathy without any other localizing features to identify the source. CC: Jamshid Turk MD (Inactive) Referring Provider: Rigo Powell APRN 08/03/2023 [facility] documented in this encounter Plan of Treatment Scheduled Referrals Name Type Priority Associated Diagnoses Orde r Schedule Referral to Pain Management Outpatient Referral Routine Spondylosis of lumbar region without myelopathy or radiculopathy Ordered: 08/03/2023 documented as of this encounter Visit Diagnoses Diagnosis Spondylosis of lumbar region without myelopathy or radiculopathy Lumbosacral spondylosis without myelopathy documented in this encounter Care Teams Ent Nurse Relationship Specialty Start Date End Date Jamshid Turk MD [address] [place] [address] PCP - General 06/15/10 documented as of this encounter
--- OUTSIDE RECORDS SUMMARY | 2024-08-01 21:59 | XMS_ITS | Encounter Summary ---
Author Organization [facility] [place] [address] Care Team Providers Care Manager Medical Name Role Phone Jamshid Turk MD Primary Care Provider [phone] Reason for Referral * Consultation (Routine) - Closed Specialty Diagnoses / Procedures Referred By Contac t Referred To Contact Pain and Spine Center Diagnoses Cervical disc disorder at C5-C6 level with radiculopathy SLB - Cervical radiculopathy / previous SLB [facility] patient / MRI 05/2022 NEEDS TO BE REQUESTED Rigo Lind MD [address] [place] [address] Hattie Powell APRN [facility] [place] [address] Referral ID Status Reason Start Date Expiration Date V isits Requested Visits Authorized [id number] Closed Consult, Test & Treat PCP Updated and/or Approved 06/15/2022 06/15/2023 6 6 Encounter Details Date Type Department Care Team (Latest Contact Info) Description 06/15/2022 Transcribe Orders eD Incoming Referrals [phone] Rigo Lind MD [address] [place], [place] [id number] Cervical disc disorder at C5-C6 level with radiculopathy Social History Tobacco Use Types Packs/Day Years Used Date Smoking Tobacco: Never Assessed Sex and Gender Information Value Date Recorded Sex Assigned at Not on file Gender Identity Not on file Sexual Orientation Not on file documented as of this encounter Plan of Treatment Scheduled Referrals Name Type Priority Associated Diagnoses Orde r Schedule Referral to Spine Center Outpatient Referral Routine Cervical disc disorder at C5-C6 level with radiculopathy Ordered: 06/15/2022 documented as of this encounter Visit Diagnoses Diagnosis Cervical disc disorder at C5-C6 level with radiculopathy documented in this encounter Care Teams Manager Medical Relationship Specialty Start Date End Date Jamshid Turk MD [address] [place] [address] PCP - General 06/15/10 documented as of this encounter
--- OUTSIDE RECORDS SUMMARY | 2024-08-01 21:59 | XMS_ITS | Encounter Summary ---
Author Organization [facility] [place] [address] Care Team Providers Care Apprise Counselor Name Role Phone Jamshid Turk MD Primary Care Provider [phone] Reason for Visit * Reason Comments Medication Refill Encounter Details Date Type Department Care Team (Late st Contact Info) Description 07/22/2024 Refill [facility] [place] [address] Hattie Powell APRN [facility] [place] [address] Spondylosis of lumbar region without myelopathy or radiculopathy Social History Tobacco Use Types Packs/Day Years Used Date Smoking Tobacco: Every Day Cigarettes Smokeless Tobacco: Never Sex and Gender Information Value Date Recorded Sex Assigned at Not on file Gender Identity Not on file Sexual Orientation Not on file documented as of this encounter Miscellaneous Notes * Telephone Encounter - Mj Jimenez RN - 07/22/2024 12:16 PM EST Medication request: Medication requested: Diclofenac sodium 75mg PO BID Current complaints/symptoms: low back pain Is the patient Post-op? (If yes, review pre-op teaching education and discharge summary): No Is the request for an opioid? No Is the patient taking the medication as prescribed? Yes Has the medication been helpful? Yes; at least a little bit Any side effects?: No Is the patient using any other medications or other conservative measures for this issue? Cyclobenzaprine, Amitriptyline, Current activity levels - does patient need education on modification/reduction of activities? Not at this time Are there any red flag symptoms since the last visit? No red flags reported Clinical Decision Making: No concerns for medication prescription/refill, order pended to Hattie Powell APRN for review and signature documented in this encounter Plan of Treatment Not on file documented as of this encounter Visit Diagnoses Diagnosis Spondylosis of lumbar region without myelopathy or radiculopathy Lumbosacral spondylosis without myelopathy documented in this encounter Care Teams Apprise Counselor Relationship Specialty Start Date End Date Jamshid Turk MD [address] [place] [address] PCP - General 06/15/10 documented as of this encounter
--- OUTSIDE RECORDS SUMMARY | 2024-08-01 21:59 | XMS_ITS | Encounter Summary ---
Author Organization [facility] Address [address] [place] [address] Care Team Providers Care Community Health Representative Name Role Phone Yesenia Morales NP Primary Care Provider [phone] Reason for Visit * Reason Comments Pain Pain * Consult (Routine) - Authorization Not Required Specialty Diagnoses / Procedures 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) Yesenia Morales NP [address] [place] [address] Phone: tel: fax: [facility] [address] [place] [address] Phone: tel: fax: Referral ID Status Reason Start Date Expiration Date Visits Requested Visits Authorized [id number] Authorization Not Required 1 1 Encounter Details Date Type Department Care Team (Late st Contact Info) Description 09/03/2021 15:30 EST Office Visit [facility] [address] [place] [address] Gilbert Daniel MD [address] [place] [address] Left hip pain (Primary Dx); Osteonecrosis of both hips (HCC-CMS) (HCC); Right hip pain Social History Tobacco Use Types Packs/Day [...] Taken Comments Blood Pressure - - Pulse 86 09/03/2021 1515 EST Temperature 36.8 ??C (98.3 ??F) 09/03/2021 1515 EST Respiratory Rate - - Oxygen Saturation 98% 09/03/2021 1515 EST Inhaled Oxygen Concentration - - Weight 79.4 kg (175 lb) 09/03/2021 1515 EST Height 168.9 cm (5' 6.5) 09/03/2021 1515 EST Body Mass Index 27.82 09/03/2021 1515 EST documented in this encounter [...] in this encounter Progress Notes * Gilbert Daniel MD - 09/03/2021 1530 EST [facility] 09/03/2021 CHIEF COMPLAINT: Chief Complaint Patient presents with ??? Left Hip - Pain ??? Right Hip - Pain SUBJECTIVE: Diogo Martinez is a 50 y.o. male who presents today for evaluation of his bilateral hip pain. Referral from PCP per note avascular necrosis. Seen by spine. FL guided left hip injection 07/09/21. Lumbar spine MRI 06/14/21. Left hip XR 02/01/21 Diogo has had some pain in the hips for quite a while. He has had both right and left hip pain. Morerecently his left hip has been the most painful. He says he had radicular pain in the left hip. This radiated down at least to the knee and some degree below then. He says that he had a steroid injection to the left hip in June. His pain has been much better since then. He does admit to a history of significant alcohol use in the past. He stopped drinking a little over a year ago when he developed severe pancreatitis. He also has history of back problems. He has been followed by the spine service. The past medical, family and social history have been reviewed in the patient chart. History reviewed. No pertinent past medical history. [...] mouth daily. (Patient not taking: Reported on 09/03/2021) ??? atorvastatin (LIPITOR) 40 mg tablet Take 40 mg by mouth every evening. ??? blood glucose meter by not applicable route. (Patient not taking: Reported on 09/03/2021) ??? BLOOD SUGAR DIAGNOSTIC, DISC MISC by not applicable route. (Patient not taking: Reported on 09/03/2021) ??? diphenhydrAMINE-acetaminophen 25-500 mg tablet Take 2 Tablets by mouth. Most nights ??? empagliflozin (JARDIANCE) 10 mg tablet Take 10 mg by mouth daily. ??? ibuprofen (MOTRIN) 200 mg tablet 4 tab(s) orally 3 times a day PRN ??? lancets by not applicable route. (Patient not taking: Reported on 09/03/2021) ??? LOW-DOSE ASPIRIN ORAL Take 81 mg [...] No facility-administered medications prior to visit. OBJECTIVE: On physical exam, the patient is found to be a pleasant and cooperative male. In no acute distress. Psych: He is alert and oriented x 3 with normal affect. Constitutional: He is well-developed and in no significant distress. Eyes: Sclerae clear. Resp: Breathing is regular and nonlabored without audible wheezing. Skin: warm and dry Radiographs of both hips were ordered and taken in the office today. These were independently reviewed by me. That includes AP pelvis and frog-leg lateral of both hips. In addition, I reviewed patient's previous fluoroscopic injection studies, MRI of the lumbar spine, previous hip x-rays taken in January 2021, and his nuclear medicine study. Today's radiographs show fairly advanced degenerative disease of the right hip with subchondral sclerosis and some collapse of the femoral head best seen on the frog lateral projection which would be consistent with AVN. There is an area of subchondral sclerosis in the left femoral head also suggestive of AVN. The hip joint on the left appears to be relatively well-preserved. There is an ossified body adjacent to the labrum of the left hip. ASSESSMENT: 1. Left hip pain XR HIPS BILATERAL 2 VIEWS OPTIONAL PELVIS 2. Osteonecrosis of both hips (HCC-CMS) (HCC) XR HIPS BILATERAL 2 VIEWS OPTIONAL PELVIS 3. Right hip pain XR HIPS BILATERAL 2 VIEWS OPTIONAL PELVIS PLAN: Diogo says that his pain is under good control right now. I do not think there is any that needs to be done immediately for treating his avascular necrosis. Certainly, on the right side, he already has advanced degenerative disease. The only reasonable treatment for the right hip would be hip r eplacement. He may already be far enough advanced on the left at the same treatment would be best if his pain persist. However, since he got good relief with the steroid injection, my recommendation is to wait until pain recurs to make any determination about treatment. We certainly could get an MRI of the left hip to see if there is other pathology including labral tear. He does have a calcifiednodule next to the left hip, probably related to the labrum. He might possibly benefit from arthroscopic surgery although I think this is unlikely. Nevertheless, I will ask my partner, stevan Garciaw his studies. This note was prepared using voice recognition software and the EMR. There may be inadvertent errors and omissions. GILBERT DANIEL MD * Gilbert Daniel MD - 09/03/2021 1530 EST I spoke to the patient today. I reviewed Dr. Tyler Brown's recommendations. He would like to meetwith him to discuss possible arthroscopic surgery for the hip. Please contact the patient to schedule an appointment. Please talk to Dr. Tyler Brown to find out when he would like to see him beforecalling the patient. Thank you documented in this encounter Plan of Treatment Not on file documented as of this encounter Procedures Procedure Name Priority Date/Time Associated Diagnosis Comments XR HIPS BILATERAL 2 VIEWS Routine 09/03/2021 15:29 EST Left hip pain Right hip pain Osteonecrosis of both hips (HCC-CMS) (HCC) documented in this encounter Results * XR HIPS BILATERAL 2 VIEWS OPTIONAL PELVIS (09/03/2021 15:29 EST) Anatomical Region Laterality Modality Lower Extremities Bilateral Computed Radio graphy 09/03/2021 15:5 3 EST Impressions 09/03/2021 15:53 EST Moderate/severe bilateral hip arthrosis. Narrative 09/03/2021 15:53 EST INDICATION: bilateral hip pain TECHNIQUE: ??2 views of both hips. COMPARISON: None. FINDINGS: Both hips demonstrate moderate/severe superolateral joint space narrowing with associated osseous proliferative change. There are ossicles adjacent to both superior acetabula. No fracture is detected. Procedure Note Colten Dennis MD - 09/03/2021 INDICATION: bilateral hip pain TECHNIQUE: 2 views of both hips. COMPARISON: None. FINDINGS: Both hips demonstrate moderate/severe superolateral joint spacenarrowing with associated osseous proliferative change. There are ossiclesadjacent to both superior acetabula. No fracture is detected. IMPRESSION Moderate/severe bilateral hip arthrosis. us Gilbert Daniel MD [facility] DI[facility]NOST[facility] O RDERABLES Final Result documented in this encounter Visit Diagnoses Diagnosis Left hip pain- Primary Pain in joint, pelvic region and thigh Osteonecrosis of both hips ([facility]-CMS) Right hip pain Pain in joint, pelvic region and thigh documented in this encounter Historical Medications * This list may reflect changes made after this encounter. empagliflozin (JARDIANCE) 10 mg tablet Take 1 Tablet by mouth daily. 10/19/2023 added in this encounter Care Teams Community Health Representative Relationship Specialty Start Date End Date Yesenia Morales NP [address] [place] [id number] PCP - General 06/14/21 documented as of this encounter
--- OUTSIDE RECORDS SUMMARY | 2024-08-01 21:59 | XMS_ITS | Encounter Summary ---
Author Organization [facility]ly [facility] [place] [address] Care Team Providers Care Time Study Technician Name Role Phone Jamshid Turk MD Primary Care Provider [phone] Reason for Referral * Diagnostic Test (Routine) - Closed Specialty Diagnoses / Procedures Referred By Contac t Referred To Contact Radiology Diagnoses Spondylosis of lumbar region without myelopathy or radiculopathy Procedures MRI Lumbar Spine wo Contrast (Generic) Hattie Powell APRN [facility] [address] Radiology, [facility] [address] [place] [address] Referral ID Status Reason Start Date Expiration Date V isits Requested Visits Authorized [id number] Closed Specialty Service Requested 04/29/2024 10/28/2025 1 1 Reason for Visit * Reason Comments Follow-up Encounter Details Date Type Department Care Team (Latest Contact Info) Description 04/29/2024 3:30 PM EDT Office Visit [facility] [place] [address] Hattie Powell APRN [facility] [place] [address] Spondylosis of lumbar region without myelopathy or [...] - Inhaled Oxygen Concentration - - Weight 74.8 kg (165 lb) 04/29/2024 3:21 PM EDT Height 170.2 cm (5' 7) 04/29/2024 3:21 PM EDT Body Mass Index 25.84 04/29/2024 3:21 PM EDT documented in this encounter Progress Notes * Hattie Powell, HASHER MACHINE OPERATOR - 04/29/2024 3:30 PM EDT [facility] Medical Decision Making: Diogo is a 53 y.o. male seen today for a chief complaint of axial lower back pain that initially wasquite responsive to MBB/RFA spanning L4-S1 bilaterally. Unfortunately, his most recent RFA did not give him any significant improvement. His last MRI was in 2020 and today, I discussed with the patient that it would not be unreasonable to move forward with some updated imaging studies so we can reevaluate the status of his lumbar spine. The patient is amenable to this and I will see him after theupdated MRI is completed. In the interim, he is continuing to struggle with pain management. I counseled the patient that moving forward with use of narcotic pain medication was not in his best interest and I would recommend not moving down that path. However, we can certainly increase his dose of diclofenac as this has been helpful in reducing the intensity of his discomfort and I am hoping a higher dose may be more instrumental in pain management. The patient is amenable to this and I will send in an updated prescription to his pharmacy. Diagnosis: ICD-10-CM 1. Spondylosis of lumbar region without myelopathy or radiculopathy M47.816 MRI Lumbar Spine wo Contrast (Generic) diclofenac EC (Voltaren) [address] tablet Plan Increase diclofenac to 75 mg twice daily MR lumbar Follow-up with me when the above is completed HPI Diogo Barba is a 53 y.o. male last seen by me on 08/03/2023 for a chief complaint of axial lower backpain likely associated with degenerative facet changes spanning L4-S1 that has been nicely improvedin the past with lumbar RFA spanning L4 to the sacral ala. At the time of his last visit, he was interested in having this procedure repeated. A referral to repeat the RFA was sent to [facility]. The patient is following up with me today to review his response. Today, the patient reports that he did not get any significant change or improvement in his symptoms after repeat RFA spanning L4-S1 on 11/03/2023. He is somewhat discouraged that he did not get more relief. He continues to deny any radicular component. He does question whether or not there are any other medications that can be used. ROS A five point review of systems was completed today and, of note, pertinent positive and negatives are indicated in the HPI. reports that he has been smoking cigarettes. He has never used smokeless tobacco. Conservative Treatment: Physical Therapy: He has engaged with physical therapy in the past and has been given a dedicated home exercise program Home Exercise Program: He has continued his home exercise program daily as tolerated since his lastinjection and RFA Medications: Tylenol Ibuprofen Meloxicam Celebrex Gabapentin Other Treatments: None Injections: 11/03/2023 : RFA L4-S1 - 0% 11/03/2022: C7-T1 KATELYNN -0% 05/13/2022: lumbar radiofrequency [...] Examination Wt Readings from Last 1 Encounters: 04/29/24 74.8 kg (165 lb) BMI Readings from Last 1 Encounters: 04/29/24 25.84 kg/m?? Pain: 4 (Last 7 days: Lowest- 4 Highest- 7) General: Pleasant, cooperative, Mood and affect are appropriate Posture: Upright Gait: Normal, Non-Antalgic Palpation: No palpable masses, lesions or deformities Skin: Intact with no stigmata of underlying disease. ROM: deferred Sensation: Grossly intact throughout all dermatomes Neuro: Strength: 5/5 throughout all muscle groups Imaging and Test Review: No new imaging was ordered for review today CC: Jamshid Turk MD (Inactive) Referring Provider: Rigo Powell APRN 04/30/2024 [facility] documented in this encounter Plan of Treatment Scheduled Orders Name Type Priority Associated Diagnoses Orde r Schedule MRI Lumbar Spine wo Contrast (Generic) Imaging Routine Spondylosis of lumbar region without myelopathy or radiculopathy Expected: 05/06/2024, Expires: 11/05/2024 documented as of this encounter Visit Diagnoses Diagnosis Spondylosis of lumbar region without myelopathy or radiculopathy Lumbosacral spondylosis without myelopathy documented in this encounter Care Teams Time Study Technician Relationship Specialty Start Date End Date Jamshid Turk MD [address] [place] [address] PCP - General 06/15/10 documented as of this encounter
--- OUTSIDE RECORDS SUMMARY | 2024-08-01 21:59 | XMS_ITS | Encounter Summary ---
Author Organization [facility] [place] [address] Care Team Providers Care Flower Cheniller Name Role Phone Jamshid Turk MD Primary Care Provider [phone] Encounter Details Date Type Department Care Team (Late st Contact Info) Description 12/26/2019 Ancillary Procedure Radiology Library at [facility] [place] [address] Skyler Devine MD [facility] [place] [address] Social History Tobacco Use Types Packs/Day Years [...] Associated Diagnosis Comments FILM LIBRARY STORAGE ONLY CT ABDOMEN AND PELVIS Routine 12/26/2019 12:00 AM EDT documented in this encounter Results * Film Library- Storage Only CT Abdomen & Pelvis (12/26/2019 12:00 AM EDT) Narrative RAD - 12/27/2019 12:04 PM EDT This exam is auto-finalizing. It's purpose is for storage only. Skyler Devine MD IMG FILM LIBRARY ORD ERABLES [place], [place] documented in this encounter Visit Diagnoses Not on filedocumented in this encounter Care Teams Flower Cheniller Relationship Specialty Start Date End Date Jamshid Turk MD [address] [place] [address] PCP - General 06/15/10 documented as of this encounter
--- OUTSIDE RECORDS SUMMARY | 2024-08-01 21:59 | XMS_ITS | Encounter Summary ---
Author Organization [facility] Address [address] [place] [address] Care Team Providers Care Scrum Project Manager Name Role Phone Chip Damon MD Primary Care Provider [phone] Encounter Details Date Type Department Care Team (Late st Contact Info) Description 01/28/2021 Results Only [facility] [place] [address] [place] [address] Yesenia Morales, MOHAN [address] [place] [address] Social History Tobacco Use Types [...] Procedure Name Priority Date/Time Associated Diagnosis Comments GLYCOHEMOGLOBIN POC - CV Routine 01/28/2021 8:12 EDT documented in this encounter Results * (ABNORMAL) GLYCOHEMOGLOBIN POC - CV (01/28/2021 8:12 EDT) Hemoglobin A1c 6.0 4.0 - 6.0 % 01/28/2021 8:13 EDT [facility] AVG CALCULATED GLUCOSE - CV 120(H) 60 - 115 MG/DL 01/28/2021 8:13 EDT [facility] 01/28/2021 8:12 EDT 01/28/2021 8:12 EDT us Yesenia Morales LITHOGRAPHIC PLATE MAKER CHEMISTRY & BLOOD GAS ORDERABLES Final Result [facility] [address] [place] [address] documented in this encounter Visit Diagnoses Not on filedocumented in this encounter Care Teams Scrum Project Manager Relationship Specialty Start Date End Date Chip Damon MD [address] [place] [address] PCP - General 03/07/12 06/13/21 documented as of this encounter
--- OUTSIDE RECORDS SUMMARY | 2024-08-01 21:59 | XMS_ITS | Encounter Summary ---
Author Organization [facility] Address [address] [place] [address] Care Team Providers Care Computer Repair Technician Name Role Phone Carmen Yesenia PRESTON Primary Care Provider [phone] Reason for Visit * Reason Comments Pain Pain Encounter Details Date Type Department Care Team (Late st Contact Info) Description 06/22/2021 16:30 EST Office Visit [facility]ics & Sp[facility] Medicine [address], [address] [place] [address] Hattie Powell NP [address] [place] [address] [place] [address] Lumbar pain (Primary Dx); Radicular syndrome of left leg; Left hip pain; Right hip pain; Osteonecrosis of both hips (HCC-CMS) ([facility]) Social History Tobacco Use Types Packs/Day Years [...] 16:16 EST documented as of this encounter Last Filed Vital Signs Vital Sign Reading Time Taken Comments Blood Pressure 124/74 06/22/2021 1617 EST Pulse 86 06/22/2021 1617 EST Temperature - - Respiratory Rate - - Oxygen Saturation 97% 06/22/2021 1617 EST Inhaled Oxygen Concentration - - Weight [...] this encounter Progress Notes * Hattie Powell Lindsay, CUSTODIAL SERVICES MANAGER - 06/22/2021 1630 EST Medical Decision Making Diogo is a pleasant 50 y.o. male seen in evaluation for his low back pain radiating to the left lower extremity as well as some bilateral hip discomfort on the left greater than the right. 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 His MRI is also notable for some moderate bilateral recess stenosis at L4-5. Today, I discussed with the patient that I had reviewed his case with our general orthopedic surgeon Dr. Cristino Hernandez MD who recommended holding off on an intra-articular hip injection ifthe patient was interested in exploring his surgical options for the avascular necrosis of the lefthip. At this point, the patient is hopeful to hold off on a hip replacement for as long as possibleand would like to move forward with the intra-articular hip injection. He is aware that if he proceeds with this injection he will need to wait at least 3 months before he can have a hip replacement and the patient is open to this. He also has radicular symptoms to the left lower extremity most closely correlating with an L5 distribution and given the notable lateral recess stenosis bilaterally at L4-5, I also think it would be reasonable for him to trial a left L4-5 epidural steroid injection to see if this could mitigate his symptoms. The patient is amenable to this and I will see him back after the injection series is completed. I spent a total of [...] Imaging was reviewed by me. Diagnosis 1. Lumbar pain 2. Radicular syndrome of left leg AMB CONS/FOLLOW UP PAIN INTERVENTIONAL 3. Left hip pain 4. Right hip pain 5. Osteonecrosis of both hips ([facility]) ([facility]) Plan 1. Proceed with left intra-articular hip injection as scheduled for 07/09/2021 2. Left L4-5 KATELYNN 3. Follow-up with me when the above is completed HPI Diogo is a 50 y.o. male last seen by me on 05/11/2021 and at that time, he was seen for a chief complaint of low back pain radiating to the left lower extremity. At the time of our last visit, his symptoms seem to be multifactorial. He did have some clear limitations in range of motion of the left hip which is somewhat suggestive of an intra-articular hip pathology and given the suspicion for avascular necrosis of the femoral head this certainly could be a contributing factor. He was also demonstrating some pain in an L5 distribution and subsequently, I recommended that he trial a left intra-ar ticular hip injection as well as a SPECT bone scan and an MRI for further evaluation of his overallcomplaints. He has not yet had his intra-articular hip injection. Since his last visit, there are no significant changes in his overall complaints. He continues to have some significant left hip/groin pain along with radicular symptoms to the left lower extremity most closely correlating with an L5 distribution. The patient's medical profile was reviewed and dated today. It contains a detailed past medical history, past surgical history, list of medications, allergies, social history and family medical history and was reviewed and updated in the EMR. reports that he has been smoking. He has been smoking about 0.75 packs per day. He has never used smokeless tobacco. No history on file for alcohol use. Conservative Treatment: Physical Therapy: He completed a full course of physical therapy within the last 6 months and was discharged on home exercise program Home Exercise Program: He continues to perform this on a daily basis as tolerated Medications: Meloxicam, Celebrex, Cymbalta, Tylenol, ibuprofen, gabapentin Other: None Injections: 1. None ROS A five-point review of systems was completed today and of note, pertinent positives and negatives are indicated in the HPI Physical Examination BP 124/74 (BP Cuff Location: Left arm, BP Patient Position: Sitting, BP Cuff Sizes: Adult, regular) Pulse 86 SpO2 97% Pain Ratin-9 over 10 General: Pleasant, cooperative, mood and affect are appropriate. Neuro: Alert and oriented to person, place, time and purpose. Posture: Normal, upright Gait: Nonantalgic Palpation: There are no palpable masses, lesions or deformities. Skin: Intact with no stigmata of underlying disease. ROM: He has limited flexion at the hips Sensation: Grossly intact throughout all dermatomes with the exception of some slight altered sensation to the left lower extremity in an L5 distribution. Strength: 5 out of 5 throughout Reflexes: 2+ at the knees and 1+ at the ankles bilaterally CC: Primary Care Provider: Yesenia Morales NP [address] [place] [phone] Referring Provider: Yesenia Morales NP DRAGON DICTATION WAS USED FOR NOTE COMPLETION. PLEASE EXCUSE ALL MISSPELLINGS AND PUNCTUATION ERRORS. AMINA Vargas 06/24/21 [facility] Orthopedic Spine and Neurosurgery documented in this encounter Plan of Treatment Not on file documented as of this encounter Visit Diagnoses Diagnosis Lumbar pain- Primary Lumbago Radicular syndrome of left leg Thoracic or lumbosacral neuritis or radiculitis, unspecified Left hip pain Pain in joint, pelvic region and thigh Right hip pain Pain in joint, pelvic region and thigh Osteonecrosis of both hips (HCC-CMS) documented in this encounter Historical Medications * This list may reflect changes made after this encounter. LOW-DOSE ASPIRIN ORAL Take 81 mg by mouth daily. 07/19/2022 methocarbamoL (ROBAXIN) 500 mg tablet Take 500 mg by mouth if needed. 1-2 tabs up to 2 times a day 07/19/2022 added in this encounter Care Teams Computer Repair Technician Relationship Specialty Start Date End Date Yesenia Morales NP [address] [place] [id number] PCP - General 06/14/21 documented as of this encounter
--- OUTSIDE RECORDS SUMMARY | 2024-08-01 21:59 | XMS_ITS | Encounter Summary ---
Author Organization [facility] [place] [address] Care Team Providers Care Client Engagement Manager Name Role Phone Jamshid Turk MD Primary Care Provider [phone] Encounter Details Date Type Department Care Team (Late st Contact Info) Description 12/25/2019 Ancillary Procedure Radiology Library [place] [address] Skyler Devine MD [facility] [place] [address] Social History Tobacco Use Types Packs/Day Years [...] STORAGE ONLY CT ABDOMEN AND PELVIS Routine 12/25/2019 12:00 AM EDT documented in this encounter Results * Film Library- Storage Only CT Abdomen & Pelvis (12/25/2019 12:00 AM EDT) Narrative RAD - 12/27/2019 12:03 PM EDT This exam is auto-finalizing. It's purpose is for storage only. Skyler Devine MD IMG FILM LIBRARY ORD ERABLES [place], [place] documented in this encounter Visit Diagnoses Not on filedocumented in this encounter Care Teams Client Engagement Manager Relationship Specialty Start Date End Date Jamshid Turk MD [address] [place] [address] PCP - General 06/15/10 documented as of this encounter
--- OUTSIDE RECORDS SUMMARY | 2024-08-01 21:59 | XMS_ITS | Encounter Summary ---
Author Organization [facility] Address [address] [place] [address] Care Team Providers Care Terrazzo Finisher Name Role Phone Yesenia Morales NP Primary Care Provider [phone] Reason for Visit * Reason Onset Date Comments Appointment Related 06/16/2021 Encounter Details Date Type Department Care Team (Late st Contact Info) Description 06/16/2021 Telephone [facility] Orthopedics & Spine Medicine [address], [address] [place] [address] Hattie Powell NP [address] [place] [address] [place] [address] Appointment Related Social History Tobacco Use Types [...] Telephone Encounter - Nicky Anglin LPN - 06/16/2021 1101 EST On chart check I do not see pt has had hip injection that was ordered 1 month ago, I called pt, he has not heard from anyone to schedule, I encouraged him to call radiology to get a date, he states he will and he would like to keep appt next week to review imaging. documented in this encounter Plan of Treatment Not on file documented as of this encounter Visit Diagnoses Not on filedocumented in this encounter Care Teams Terrazzo Finisher Relationship Specialty Start Date End Date Yesenia Morales NP [address] [place] [phone] PCP - General 06/14/21 documented as of this encounter
--- OUTSIDE RECORDS SUMMARY | 2024-08-01 21:59 | XMS_ITS | Encounter Summary ---
Author Organization [facility] [place] [address] Care Team Providers Care Movie Extra Name Role Phone Jamshid Turk MD Primary Care Provider [phone] Encounter Details Date Type Department Care Team (Late st Contact Info) Description 02/16/2022 Ancillary Procedure Radiology Library at [facility] [place] [phone] Rigo Lind MD [address] [place] [address] Social History Tobacco Use Types Packs/Day Years [...] Associated Diagnosis Comments FILM LIBRARY STORAGE ONLY DX SPINE Routine 02/16/2022 12:00 AM EDT documented in this encounter Results * Film Library- Storage Only DX Spine (02/16/2022 12:00 AM EDT) Narrative RAD - 08/26/2022 10:57 AM EST This exam is auto-finalizing. It's purpose is for storage only. Rigo Lind MD G FILM LIBRARY ORD ERABLES [place], [place] documented in this encounter Visit Diagnoses Not on filedocumented in this encounter Care Teams Movie Extra Relationship Specialty Start Date End Date Jamshid Turk MD [address] [place] [address] PCP - General 06/15/10 documented as of this encounter
--- OUTSIDE RECORDS SUMMARY | 2024-08-01 21:59 | XMS_ITS | Encounter Summary ---
Author Organization [facility] Address [address] [place] [address] Care Team Providers Care Marketing Automation Manager Name Role Phone Chip Damon MD Primary Care Provider [phone] Encounter Details Date Type Department Care Team (Latest Contact Info) Description 05/11/2021 Travel Social History Tobacco Use Types Packs/Day [...] on filedocumented in this encounter Care Teams Marketing Automation Manager Relationship Specialty Start Date End Date Chip Damon MD [address] [address] PCP - General 03/07/12 06/13/21 documented as of this encounter
--- OUTSIDE RECORDS SUMMARY | 2024-08-01 21:59 | XMS_ITS | Encounter Summary ---
[place] [address] Care Team Providers Care Laboratory Coordinator Name Role Phone Jamshid Turk MD Primary Care Provider [phone] Encounter Details Date Type Department Care Team (Late st Contact Info) Description 07/26/2024 Telephone [facility] [place] [phone] Diogo Son Social History Tobacco Use Types Packs/Day Years [...] on filedocumented in this encounter Care Teams Laboratory Coordinator Relationship Specialty Start Date End Date Jamshid Turk MD [address] [place], [place] [address] PCP - General 06/15/10 documented as of this encounter
--- OUTSIDE RECORDS SUMMARY | 2024-08-01 21:59 | XMS_ITS | Encounter Summary ---
Author Organization [facility] [place] [address] Care Team Providers Care Wheel Braider Name Role Phone Jamshid Turk MD Primary Care Provider [phone] Encounter Details Date Type Department Care Team (Latest Contact Info) Description 08/03/2023 Travel Social History Tobacco Use Types Packs/Day [...] on filedocumented in this encounter Care Teams Wheel Braider Relationship Specialty Start Date End Date Jamshid Turk MD [address] [place] [address] PCP - General 06/15/10 documented as of this encounter
--- OUTSIDE RECORDS SUMMARY | 2024-08-01 21:59 | XMS_ITS | Encounter Summary ---
Author Organization [facility] Address [address] [place] [address] Care Team Providers Care Emergency Dept Tech Name Role Phone Chip Damon MD Primary Care Provider [phone] Yesenia Morales NP Primary Care Provider [phone] Encounter Details Date Type Department Care Team (Late st Contact Info) Description 03/16/2021 Lab Requisition [facility] Pathology & Laboratory Medicine - [facility] [address] [place] [address] Yary Alcocer, DO [address] [place] [address] Encounter for other general examination Social History Tobacco Use Types Packs/Day Years [...] Procedure Name Priority Date/Time Associated Diagnosis Comments SURGICAL PATHOLOGY Today 03/16/2021 9: 35 EDT Encounter for other general examination documented in this encounter Results * SURGICAL PATHOLOGY (03/16/2021 9:35 EDT) Note to Patient The following pathology results have been interpreted by your pathologist and may be available to you before your health provider has had the opportunity to review them. Please allow time for your provider to receive these results and explore management options, if applicable. 03/19/2021 13:54 EDT [facility] Final Diagnosis A. SOFT TISSUE OF SCALP, EXCISION: - Mature adipose tissue, consistent with lipoma. 03/19/2021 13:54 T [facility] Attestation There was significant resident/fellow involvement in the diagnostic evaluation of this case. By the signature below, the attending physician certifies that they have personally conducted a gross and/or microscopic examination of the described specimens and rendered or confirmed the above diagnosis. 03/19/2021 13:54 T [facility] at 1354 Clinical History Scalp mass 03/19/2021 13:54 T [facility] Gross Description A. Received in formalin labelled with proper patient identification (initials M, R) and scalp mass is an unoriented portion of adipose tissue (5.5 g, 3.9 x 2.8 x 1.4 cm). The outer surface has a smooth, thin, translucent intact capsule. The outer surface is inked blue. The cut surface is yellow homogenous and glistening, without hemorrhage. Six risk control field representative sections are submitted as [id number]. ELEANOR REYES MD PHD 03/17/2021 11:58 03/19/2021 13:54 EDT [facility] Resident/Angel w: Eleanor Reyes MD PHD 03/19/2021 13:54 EDT [facility] Performing Lab [facility] 03/19/2021 13:54 T [facility] Scanned Images 03/19/2021 13:54 T [facility] Tissue SOFT TISSUE / Unknown 03/16/2021 9:35 EDT 03/16/2021 16:47 EDT us Yary Alcocer DO PATHOLOGY ORDERABLES Final Re sult [facility] [address] [place] [id number] documented in this encounter Visit Diagnoses Diagnosis Encounter for other general examination documented in this encounter Care Teams Emergency Dept Tech Relationship Specialty Start Date End Date Chip Damon MD [address] [place] [id number] PCP - General 03/07/12 06/13/21 Yesenia Morales NP [address] [place] [phone] PCP - General 06/14/21 documented as of this encounter
--- OUTSIDE RECORDS SUMMARY | 2024-08-01 21:59 | XMS_ITS | Encounter Summary ---
Author Organization [facility] Address [address] [place] [address] Care Team Providers Care Business Performance Analyst Name Role Phone Chip Damon MD Primary Care Provider [phone] Reason for Referral * Radiology Services (Routine/Next Available) - Specialty Report Received Specialty Diagnoses / Procedures [facility]erred To Contact Nuclear Medicine Diagnoses Left hip pain Right hip pain Procedures NM BONE WHOLE BODY SINGLE ZONE WITH SPECT/CT Hattie Powell NP Phone: tel: fax: Referral ID Status Reason Start Date Expiration Date V isits Requested Visits Authorized [id number] Specialty Report Received 05/12/2021 1 1 * Radiology Services (Routine/Next Available) - Closed Specialty Diagnoses / Procedures [facility] Referred To Contact Diagnoses Left hip pain Procedures FL GUIDED LOCALIZATION, ASPIRATION, INJECTION, BIOPSY Hattie Powell NP Phone: tel: fax: Referral ID Status Reason Start Date Expiration Date Visits Re quested Visits Authorized [id number] Closed 05/12/2021 1 1 * Radiology Services (Routine/Next Available) - Closed Specialty Diagnoses / Procedures [facility] Referred To Contact Radiology Diagnoses Lumbar pain Radicular syndrome of left leg Procedures MR LUMBAR SPINE WO CONTRAST Hattie Powell NP Phone: tel: fax: Referral ID Status Reason Start Date Expiration Date Visits Re quested Visits Authorized [id number] Closed 05/12/2021 1 1 Reason for Visit * Reason Comments Pain Pain Pain Pain Pain * Referral (Routine) - Closed Specialty Diagnoses / Procedures Referred By Sajan t Referred To Contact Orthopedic Surgery Diagnoses Back pain Left hip pain Yesenia Morales NP [address] [place] [address] Phone: tel: fax: [facility] [address], [address] [place] [address] Phone: tel: fax: Referral ID Status Reason Start Date Expiration Date Visits Re quested Visits Authorized [id number] Closed 1 1 Encounter Details Date Type Department Care Team (Late st Contact Info) Description 05/11/2021 15:45 EDT Office Visit [facility] [address], [address] [place], [place] [id number] Hattie Powell NP [address] [place] [address] Lumbar pain (Primary Dx); Radicular syndrome of left leg; Left hip pain; Right hip pain Social History Tobacco Use [...] Sign Reading Time Taken Comments Blood Pressure 140/76 05/11/2021 1552 EDT Pulse 78 05/11/2021 1552 EDT Temperature - - Respiratory Rate - - Oxygen Saturation 95% 05/11/2021 155 EDT Inhaled Oxygen Concentration - - Weight 82.7 kg (182 lb 6.4 oz) 05/11/2021 1552 E DT Height 170.2 cm (5' 7) 05/11/2021 1552 EDT Body Mass Index 28.57 05/11/2021 1552 EDT documented in this encounter Functional Status [...] this encounter Progress Notes * Hattie Powell, HEALTH INSURANCE SPECIALIST - 05/11/2021 1545 EDT Medical Decision Making Diogo is a 50 y.o. male seen in evaluation for his low back pain radiating to the left lower extremity. His symptoms seem to be multifactorial. He does have some clear range of motion limitations in the left hip which is suggestive of an intra-articular hip pathology and given the suspicion for avascular necrosis of the femoral head, this certainly could be a contributing factor. He also has a pain distribution more of an L5 distribution and today, I discussed with the patient my recommendationsfor further work-up to include diagnostic/therapeutic left intra-articular hip injection, SPECT bone scan of the hips and an MRI of the lumbar spine to rule out left L5 impingement. The patient is open to moving forward with the above and I will see him back once this is completed. I spent a total of 45 minutes on the date of this encounter meeting with the patient and reviewing documentation/coordinating care as described in this note. No procedure was performed at today's visit. Imaging/Test Review On the day of this encounter, I reviewed x-rays of the lumbar spine completed on 02/01/2021 demonstrating overall, good preservation of disc height and good overall alignment. Flexion and extension views do not demonstrate any instability but there is a slight retrolisthesis of L5 on S1 with some excess motion. I also reviewed x-rays of the spine hips with some sclerotic changes of the bilateral femoral heads potentially suggestive of AVN Imaging was reviewed by me. Diagnosis 1. Lumbar pain XR LUMBAR SPINE BENDING VIEWS, 2 OR 3 VIEWS MR LUMBAR SPINE WO CONTRAST 2. Radicular syndrome of left leg MR LUMBAR SPINE WO CONTRAST 3. Left hip pain FL GUIDED LOCALIZATION, ASPIRATION, INJECTION, BIOPSY NM BONE WHOLE BODY SINGLE ZONE WITH SPECT/CT 4. Right hip pain NM BONE WHOLE BODY SINGLE ZONE WITH SPECT/CT Plan 1. Diagnostic/therapeutic left intra-articular hip injection 2. SPECT bone scan of the hips and pelvis 3. MRI of the lumbar spine 4. Follow-up with me when the above is completed WALT Lind is a 50 y.o. male seen in referral today upon the request of Yesenia Morales NP for evaluation of a chief complaint of low back pain hip pain on the left greater than the right. The patient reports his symptoms have been present and progressive over the last 3 years. 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 He had some improvement after asking his employer to obtain some rubberbands for the kitchen and did quite well for some time but in August 2020, he developed some radicular symptoms to the left lower extremity with predominantly L5 pattern. He also endorses some loss of range of motion to the left hip and because of his persistent symptoms despite physical therapy and continued performance of a home exercise program, he has been referred here for further work-up and treatment. Currently, the patient reports a tolerable level of low back pain but more bothersome radicular symptoms to the bilateral lower extremities most predominantly on the left. The pain radiates from the buttock into the left lower extremity in an L5 distribution. He also endorses some left groin pain. D enies any sense of weakness. He denies any alteration of bowel or bladder function. The severity ofhis pain today is a 6/10 but this can elevate depending on activities. His pain seems to be worsened with range of motion of the left hip. As well as bending and lifting. No neurogenic claudication is present. The patient's medical profile was reviewed and dated today. It contains a detailed past medical history, past surgical history, list of medications, allergies, social history and family medical history and was reviewed and updated in the EMR. reports that he has been smoking. He has been smoking about 1.00 pack per day. He has never used smokeless tobacco. No history on file for alcohol use. Conservative Treatment: He completed a full course of physical therapy recently and was discharged on an home exercise program which she continues to perform. He has trialed meloxicam, Celebrex, Cymbalta, Tylenol, ibuprofen, gabapentin with minimal improvement. ROS A 10 point review of systems was completed today and of note, pertinent positives and negatives areindicated in the HPI. Physical Examination BP 140/76 (BP Cuff Location: Left arm, BP Patient Position: Sitting, BP Cuff Sizes: Adult, regular) Pulse 78 Ht 170.2 cm (67) Wt 82.7 kg (182 lb 6.4 oz) SpO2 95% BMI 28.57 kg/m?? Pain Ratin General: Pleasant, cooperative, mood and affect are appropriate. Neuro: Alert and oriented to person, place, time and purpose. Posture: Normal, upright Gait: Antalgic favoring the left lower extremity Palpation: He has some mild tenderness to left anterior groin. There are no palpable masses, lesions or deformities. Skin: Intact with no stigmata of underlying disease. ROM: Range of motion of the lumbar spine is limited on forward flexion and he does have some increased discomfort on extension as well as rotation. Range of motion of the left hip was also performed and he does have very limited internal and external rotation with additional elicitation of pain. Sensation: Grossly intact throughout all dermatomes Strength: LOWER Right Left Hip flex 5/5 5/5 Hip abd 5/5 5/5 Knee flex 5/5 5/5 Knee ext 5/5 5/5 Ank dors 5/5 5/5 Ank inv 5/5 5/5 Ank plant 5/5 5/5 Toe ext 5/5 5/5 Reflexes: Right Left Patellar L3-4 2/4 2/4 Ankles S1-2 1/4 1/4 Provocative Maneuvers: Mildly positive SLR on the left Kimberly Signs: 0/5 CC: Primary Care Provider: Chip Damon[address] [address] Referring Provider: MOHAN Crowell DICTATION WAS USED FOR NOTE COMPLETION. PLEASE EXCUSE ALL MISSPELLINGS AND PUNCTUATION ERRORS. AMINA Vargas 05/12/21 [facility] Neurosurgery documented in this encounter Plan of Treatment Scheduled Orders Name Type Priority Associated Diagnoses Orde r Schedule NM BONE WHOLE BODY SINGLE ZONE WITH SPECT/CT Imaging Routine Left hip pain Right hip pain Ordered: 05/12/2021 documented as of this encounter Procedures Procedure Name Priority Date/Time Associated Diagnosis Comments FL GUIDED LOCALIZATION, ASPIRATION, INJECTION, BIOPSY Routine 07/09/2021 14:35 EST Left hip pain MR LUMBAR SPINE WO CONTRAST Routine 06/14/2021 20:18 EST Lumbar pain Radicular syndrome of left leg XR LUMBAR SPINE BENDING VIEWS, 2 OR 3 VIEWS 05/11/2021 16:51 EDT documented in this encounter Results * FL GUIDED INJECT/ASPIR LEFT HIP (07/09/2021 14:35 EST) Anatomical Region Laterality Modality Radio Fluoroscop y 07/09/2021 14:4 3 EST Impressions 07/09/2021 14:43 EST Successful fluoroscopically-guided injection of the left hip joint, as detailed above. Narrative 07/09/2021 14:43 EST FL GUIDED INJECT/ASPIR LEFT HIP ?? Signs and Symptoms/Comments: ??Left hip intraarticular injection Comparisons: SPECT-CT 05/24/2021. Technique/findings: The risks, benefits, and alternatives to a left hip injection were discussed in detail with the patient who gave both written and verbal consent to proceed. The patient was then positioned on the fluoroscopy table. The skin overlying the hip was prepped and draped in the standard sterile fashion. A site was marked overlying the hip joint. The overlying subcutaneous tissues were anesthetized with 1% lidocaine. A 22-gauge spinal needle was advanced into the hip joint under intermittent fluoroscopic guidance. Adequate placement was confirmed by injecting a small amount of Omnipaque 300. This was subsequently followed by 7 mL of a solution containing 1 mL Kenalog (40 mg/mL) and 6 mL 1% lidocaine. The needle was removed. Hemostasis was achieved with manual pressure. A dry sterile dressing was placed. The patient tolerated the procedure well. There were no immediate complications. Fluoroscopy time: 15 seconds Procedure Note Colten Dennis MD - 07/09/2021 FL GUIDED INJECT/ASPIR LEFT HIP Signs and Symptoms/Comments: Left hip intraarticular injection Comparisons: SPECT-CT 05/24/2021. Technique/findings: The risks, benefits, and alternatives to a left hip injection werediscussed in detail with the patient who gave both written and verbalconsent to proceed. The patient was then positioned on the fluoroscopytable. The skin overlying the hip was prepped and draped in the standardsterile fashion. A site was marked overlying the hip joint. The overlying subcutaneoustissues were anesthetized with 1% lidocaine. A 22-gauge spinal needle wasadvanced into the hip joint under intermittent fluoroscopic guidance.Adequate placement was confirmed by injecting a small amount of [id number]. This was subsequently followed by 7 mL of a solution containing 1 mLKenalog (40 mg/mL) and 6 mL 1% lidocaine. The needle was removed.Hemostasis was achieved with manual pressure. A dry sterile dressing wasplaced. The patient tolerated the procedure well. There were no immediatecomplications. Fluoroscopy time: 15 seconds IMPRESSION Successful fluoroscopically-guided injection of the left hip joint, asdetailed above. Hattie Powell NP IMG FLUOROSCOPY ORDERABLES Fi nal Result * MR LUMBAR SPINE WO CONTRAST (06/14/2021 20:18 EST) Anatomical Region Laterality Modality Spine Magnetic Resonan ce 06/14/2021 20:1 5 EST Impressions 06/14/2021 21:38 EST Spondylitic and discogenic changes as described above. THIS DOCUMENT HAS BEEN ELECTRONICALLY SIGNED BY RIGO MONDRAGON MD FOR ANY QUESTIONS OR CONCERNS REGARDING THIS REPORT PLEASE CALL [facility] AT [phone] Narrative 06/14/2021 21:38 EST PROCEDURE INFORMATION: Exam: MR Lumbar Spine Without Contrast Exam date and time: 06/14/2021 8:15 PM Age: 50 years old Clinical indication: Radiculopathy, site unspecified; Low back pain, unspecified; Additional info: Back pain or radiculopathy, > 6 wks TECHNIQUE: Imaging protocol: Multiplanar magnetic resonance images of the lumbar spine without intravenous contrast. COMPARISON: NM BONE SPECT WITH WHOLE BODY 05/24/2021 12:01 PM FINDINGS: There is minimal scoliosis convex to the left. ??There is no evidence of fracture or subluxation. ??The vertebral bodies are of normal height. ??There is some degenerative endplate signal changes at L1. ??There is desiccation L1-L2, L2-L3 and L4-L5 discs.There are no conus abnormalities. ??The visualized soft tissues are unremarkable. Incidentally noted is some irregularity involving the right iliac wing which could be due to prior bone biopsy. ??Please correlate clinically. L1-L2: ??This is only visualized in the sagittal plane. ??There appears to be some minimal disc bulging. ??There is no significant central stenosis. ??There is mild bilateral neural foraminal stenosis. L2-L3: ??There is no evidence for disc bulge or protrusion. ??Is there is no significant central stenosis. ??There is mild bilateral neural foraminal stenosis. L3-L4: ??There is minimal disc bulging. ??There are mild degenerative changes of facet joints. ??There is mild central stenosis. ??There is mild bilateral neural foraminal stenosis. L4-L5: ??There is diffuse disc bulging. ??There is ligamentum flavum and facet hypertrophy. ??There is mild central stenosis. ?? There is moderate left and right neural foraminal stenosis. L5/S1: ??There is no evidence for disc bulge or protrusion. ?? There are mild degenerative changes of the facet joints. ??There is no significant central or neural foraminal stenosis. Procedure Note Rigo Mondragon MD - 06/14/2021 PROCEDURE INFORMATION: Exam: MR Lumbar Spine Without Contrast Exam date and time: 06/14/2021 8:15 PM Age: 50 years old Clinical indication: Radiculopathy, site unspecified; Low back pain, unspecified; Additional info: Back pain or radiculopathy, > 6 wks TECHNIQUE: Imaging protocol: Multiplanar magnetic resonance images of the lumbar spine without intravenous contrast. COMPARISON: NM BONE SPECT WITH WHOLE BODY 05/24/2021 12:01 PM FINDINGS: There is minimal scoliosis convex to the left. There is no evidence of fracture or subluxation. The vertebral bodies are of normal height. There is some degenerative endplate signal changes at L1. There is desiccation L1-L2, L2-L3 and L4-L5 discs.There are no conus abnormalities. The visualized soft tissues are unremarkable. Incidentally noted is some irregularity involving the right iliac wing which could be due to prior bone biopsy. Please correlate clinically. L1-L2: This is only visualized in the sagittal plane. There appears to be some minimal disc bulging. There is no significant central stenosis. There is mild bilateral neural foraminal stenosis. L2-L3: There is no evidence for disc bulge or protrusion. Is there is no significant central stenosis. There is mild bilateral neural foraminal stenosis. L3-L4: There is minimal disc bulging. There are mild degenerative changes of facet joints. There is mild central stenosis. There is mild bilateral neural foraminal stenosis. L4-L5: There is diffuse disc bulging. There is ligamentum flavum and facet hypertrophy. There is mild central stenosis. There is moderate left and right neural foraminal stenosis. L5/S1: There is no evidence for disc bulge or protrusion. There are mild degenerative changes of the facet joints. There is no significant central or neural foraminal stenosis. IMPRESSION Spondylitic and discogenic changes as described above. THIS DOCUMENT HAS BEEN ELECTRONICALLY SIGNED BY RIGO MONDRAGON MD FOR ANY QUESTIONS OR CONCERNS REGARDING THIS REPORT PLEASE CALL [facility] [phone] us Hattie Powell NP IMG MRI ORDERABLES Final Resu lt * XR LUMBAR SPINE BENDING VIEWS, 2 OR 3 VIEWS (05/11/2021 16:51 EDT) Anatomical Region Laterality Modality Computed Radiogr aphy 05/11/2021 16:5 1 EDT Narrative 05/11/2021 16:51 EDT ? EXAM: RADIOLOGY/LS SPINE FLEX/EXT ONLY 2- EX. D/ (1611) ? CLINICAL INFORMATION: ? LUMBAR PAIN M54.50 ? PROCEDURE INFORMATION: ? Exam: XR Lumbosacral Spine ? Exam date and time: 05/11/2021 4:04 PM ? Age: 50 years old ? Clinical indication: Low back pain; Additional info: Lumbar pain ? m54.50 ? TECHNIQUE: ? Imaging protocol: XR of the lumbosacral spine. ? Other technique: Views; 2 or 3 views. Including flexion and ? extension views. ? COMPARISON: ? CR XR LUMBAR SPINE COMPLETE 02/01/2021 8:18 AM ? FINDINGS: ? Bones/joints: Vertebral body heights are intact. Alignment is ? maintained. There is no significant instability with ? flexion/extension. No acute fracture is identified. There is ? fairly similar multilevel facet arthrosis, disc space narrowing ? and marginal osteophyte formation. ? Soft tissues: Grossly unremarkable. ? IMPRESSION: ? Degenerative disk disease, fairly similar as compared with ? 02/01/2021, which could be better evaluated by means of MRI as ? clinically indicated. No significant instability with ? flexion/extension. ? REPORT SIGNED IN OTHER VENDOR SYSTEM 05/11/2021 ?Reported By: Andrea Garcia MD ? CC: Hattie Powell ? Transcribed Date/Time: 05/11/2021 (1651) ? Jewelry Bearing Maker: ? Printed Date/Time: 05/11/2021 (715) ? PAGE 1 ? Signed Report ? Procedure Note Andrea Garcia MD - 05/11/2021 EXAM: RADIOLOGY/LS SPINE FLEX/EXT ONLY 2- EX. D/ (1611) CLINICAL INFORMATION: LUMBAR PAIN M54.50 PROCEDURE INFORMATION: Exam: XR Lumbosacral Spine Exam date and time: 05/11/2021 4:04 PM Age: 50 years old Clinical indication: Low back pain; Additional info: Lumbar pain m54.50 TECHNIQUE: Imaging protocol: XR of the lumbosacral spine. Other technique: Views; 2 or 3 views. Including flexion and extension views. COMPARISON: CR XR LUMBAR SPINE COMPLETE 02/01/2021 8:18 AM FINDINGS: Bones/joints: Vertebral body heights are intact. Alignment is maintained. There is no significant instability with flexion/extension. No acute fracture is identified. There is fairly similar multilevel facet arthrosis, disc space narrowing and marginal osteophyte formation. Soft tissues: Grossly unremarkable. IMPRESSION: Degenerative disk disease, fairly similar as compared with 02/01/2021, which could be better evaluated by means of MRI as clinically indicated. No significant instability with flexion/extension. REPORT SIGNED IN OTHER VENDOR SYSTEM 05/11/2021 Reported By: Andrea Garcia MD CC: Hattie Powell GAGE MAKER-BC Transcribed Date/Time: 05/11/2021 (1650) Jewelry Bearing Maker: Printed Date/Time: 05/11/2021 (572) PAGE 1 Signed Report us Hattie Powell SENIOR TECHNICAL ARCHITECT IMG DIAGNOSTIC IMAGING ORDERA BLES Final Result documented in this encounter Visit Diagnoses Diagnosis Lumbar pain- Primary Lumbago Radicular syndrome of left leg Thoracic or lumbosacral neuritis or radiculitis, unspecified Left hip pain Pain in joint, pelvic region and thigh Right hip pain Pain in joint, pelvic region and thigh documented in this encounter Historical Medications * This list may reflect changes made after this encounter. acetaminophen (TYLENOL) 500 mg tablet Take 1,000 mg by mouth as needed for Pain. BLOOD SUGAR DIAGNOSTIC, DISC MISC by not applicable route. 01/21/2020 blood glucose meter by not applicable route. 01/21/2020 lancets by not applicable route. 01/21/2020 diphenhydrAMINE- acetaminophen 25-500 mg tablet Take 2 Tablets by mouth. Most nights 03/16/2021 amitriptyline (ELAVIL) 10 mg tablet 10 Tablets at bedtime. 05/05/2021 atorvastatin (LIPITOR) 40 mg tablet Take 1 Tablet by mouth every evening. 03/31/2021 melatonin 10 mg capsule Take 10 mg by mouth at bedtime. 02/25/2021 metFORMIN (GLUCOPHAGE-XR) 500 mg ER tablet Take 2 Tablets by mouth 2 times daily. 04/21/2021 terbinafine HCL (LAMISIL) 250 mg tablet daily. 04/13/2021 aspirin 325 mg tablet Take 325 mg by mouth daily. 02/25/2021 2 ibuprofen (MOTRIN) 200 mg tablet 4 tab(s) orally 3 times a day PRN 2 pregabalin (LYRICA) 200 mg capsule Generally BID 04/10/2021 4 added in this encounter Care Teams Business Performance Analyst Relationship Specialty Start Date End Date Chip Damon MD [address] [address] PCP - General 03/07/12 06/13/21 documented as of this encounter
--- OUTSIDE RECORDS SUMMARY | 2024-08-01 21:59 | XMS_ITS | Encounter Summary ---
Author Organization [facility] Address [address] [place] [address] Care Team Providers Care Division Chair Name Role Phone Chip Damon MD Primary Care Provider [phone] Encounter Details Date Type Department Care Team (Late st Contact Info) Description 05/15/2021 Orders Only [facility] [place] [address] [place] [id number] Ashok Guajardo Social History Tobacco Use Types Packs/Day Years [...] on filedocumented in this encounter Care Teams Division Chair Relationship Specialty Start Date End Date Chip Damon MD [address] [place] [id number] PCP - General 03/07/12 06/13/21 documented as of this encounter
--- OUTSIDE RECORDS SUMMARY | 2024-08-01 21:59 | XMS_ITS | Encounter Summary ---
Author Organization [facility] [place] [address] Care Team Providers Care Wet Machine Cutter Name Role Phone Jamshid Turk MD Primary Care Provider [phone] Encounter Details Date Type Department Care Team (Late st Contact Info) Description 07/26/2024 Telephone [facility] and Sp[facility] at [facility] [place] [phone] iNcky Ashford RN Social History Tobacco Use Types Packs/Day Years Used Date Smoking Tobacco: Every Day Cigarettes Smokeless Tobacco: Never Sex and Gender Information Value Date Recorded Sex Assigned at Not on file Gender Identity Not on file Sexual Orientation Not on file documented as of this encounter Miscellaneous Notes * Telephone Encounter - Nicky Ashford RN - 07/30/2024 4:01 PM ESTSummary: Follow-up Patient has been scheduled for a telehealth visit with Hattie Powell on 08/01/24. * Telephone Encounter - Nicky Ashford RN - 07/26/2024 1:41 PM ESTSummary: Follow-up CRM call Call returned to Justin, significant other of Mr. Diogo Barba, at . Diogo was last seen by Hattie Powell on 04/29/24. [facility] Diogo also had a telehealth appointment scheduled with Hattie Powell on 07/15/24, however it is documented that Hattie was unable to reach Diogo by phone for that appointment, but left him a message to please call to reschedule. Justin states that Diogo would prefer an in person appointment. Let Justin know that someone from our scheduling team would reach out to Diogo to schedule an appointment for him to review his MRI. Justin agrees with this plan. Pended to Spine Team nursing clerk pickford to contact Diogo and reschedule his appointment. * Telephone Encounter - Nicky Ashford RN - 07/26/2024 1:40 PM ESTSummary: CRM Message Copied from [facility] #[id number]. Topic: Specialty Dept CRMs - Triage >> Jul 26, 2024 12:49 PM Irina Chapman wrote: Triage Message Specialist: Andre Relationship (if other than patient-full name): Justin- significant other Symptom: Lower back pain- continued Has patient experienced symptom before Yes If patient has experienced symptom before, when was the last time this occurred NA Is patient currently having symptom Yes When did symptom begin does not recall Additional Comments: Pt would like to come in to be seen regarding the above. Please reach out to discuss documented in this encounter Plan of Treatment Not on file documented as of this encounter Visit Diagnoses Not on filedocumented in this encounter Care Teams Wet Machine Cutter Relationship Specialty Start Date End Date Jamshid Turk MD [address] [place] [id number] PCP - General 06/15/10 documented as of this encounter
--- OUTSIDE RECORDS SUMMARY | 2024-08-01 21:59 | XMS_ITS | Clinical Summary ---
Author Organization [facility] [place] [facility] [place] [address] Care Team Providers Care Fashion Marketer Name Role Phone Jamshid Turk MD Primary Care Provider Allergies Active Allergy Reactions Criticality Noted Date Comments Cortisone 05/11/2021 Other reaction(s): Insomnia Steroids Erythromycin Nausea And Vomiting 12/24/2017 Medications Medication Sig Dispensed Refills Start Date End Date Status empagliflozin (Jardiance) 10 mg Tablet Take 10 mg by mouth Daily. Active aspirin 325 mg Tablet 81 mg daily. 07/19/2022 A ctive atorvastatin (Lipitor) 40 mg Tablet Take 40 mg by mouth every evening. 07/13/2022 Active melatonin 10 mg Capsule Take 10 mg by mouth nightly. 02/25/2021 Active metFORMIN XR (Glucophage XR) 500 mg Tablet Sustained Release 24 hr Take 1,000 mg by mouth Twice daily. 04/21/2021 Active amitriptyline (Elavil) 100 mg Tablet 100 mg nightly. 08/16/2022 Active Blood-Glucose Meter Misc by NOT APPLICABLE route. 01/21/2020 Active lancets Misc by NOT APPLICABLE route. 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 TAKE ONE TABLET BY MOUTH TWICE A DAY 60 tablet 2 07/25/2024 Active Encounters Date Type Department Care Team Description 07/26/2024 Telephone [place] [address] Diogo Son 07/26/2024 Telephone [place] [phone] Nicky Ashford, RN 07/22/2024 Refill [facility] [place] [phone] Hattie Powell, TUCKING MACHINE OPERATOR Spondylosis of lumbar region without myelopathy or radiculopathy 07/15/2024 Telephone [place] [phone] Hattie Powell APRN 07/02/2024 Ancillary Procedure Radiology Library [place] [address] Hattie Powell APRN 05/02/2024 Telephone [place] [phone] Zelda South RN from Last 3 Months Social History Tobacco Use Types Packs/Day Years Used Date Smoking Tobacco: Every Day Cigarettes Smokeless Tobacco: Never Tobacco Cessation:Ready to Q uit: Not Asked; Counseling Given: Not Answered Sex and Gender Information Value Date Recorded Sex Assigned at Not on file Gender Identity Not on file Sexual Orientation Not on file Last Filed [...] Mass Index 25.84 04/29/2024 3:21 PM EDT Plan of Treatment Health Maintenance Due Date Last Done Comments CT Colonography 1971 Colonoscopy 1971 Colorectal Cancer Screening 1971 FIT DNA 1971 FIT 1971 Sigmoidoscopy (10 year) with FIT yearly 1971 Sigmoidoscopy 1971 HIV screen 10/31/1989 Hepatitis C Screening 10/31/1989 Hepatitis B vaccine (0-59 yrs) (1) 10/31/1990 Pneumococcal Vaccine: At-Ris k 5-64yrs (1 of 2 - PCV) 10/31/1990 Tetanus/Diphtheria/Pertussis Vaccines (1 - Tdap) 10/31/1990 Diabetes Screening (HgbA1C o r Glucose) 2011 Zoster vaccine (1 of 2) 10/31/2021 Covid-19 Vaccine (4 - season) 2024 08/16/2023, 05/21/2021, 10/23/2020 Influenza (Flu) vaccine (1 o f 1 - Influenza standard series) 03/24/2024 Procedures Procedure Name Priority Date/Time Associated Diagnosis Comments FILM LIBRARY STORAGE ONLY MR SPINE Routine 07/02/2024 12:00 AM EST from Last 3 Months Results * Film Library- Storage Only MR Spine (07/02/2024 12:00 AM EST) Narrative RAD - 07/10/2024 10:13 AM EST This exam is auto-finalizing. It's purpose is for storage only. Hattie Powell APRN IMG FILM LIBRARY OR DERABLES Performing Organization Address City/State/[facility] Co de Phone Number [place], [place] from Last 3 Months Care Teams Fashion Marketer Relationship Specialty Start Date End Date Jamshid Turk MD [address] [place] [address] PCP - General 06/15/10
--- OUTSIDE RECORDS SUMMARY | 2024-08-01 21:59 | XMS_ITS | Encounter Summary ---
Author Organization [facility] [place] [address] Care Team Providers Care Jewel Hole Finish Opener Name Role Phone Jamshid Turk MD Primary Care Provider [phone] Encounter Details Date Type Department Care Team (Late st Contact Info) Description 07/15/2024 Telephone [facility] [place] [address] Hattie Powell APRN [facility] [place] [address] Social History Tobacco Use Types Packs/Day Years Used Date Smoking Tobacco: Every Day Cigarettes Smokeless Tobacco: Never Sex and Gender Information Value Date Recorded Sex Assigned at Not on file Gender Identity Not on file Sexual Orientation Not on file documented as of this encounter Miscellaneous Notes * Telephone Encounter - Hattie Powell APRN - 07/15/2024 8:06 AM EST Called for scheduled telephone appointment - No answer. LVM on identifiable VM to return call. documented in this encounter Plan of Treatment Not on file documented as of this encounter Visit Diagnoses Not on filedocumented in this encounter Care Teams Jewel Hole Finish Opener Relationship Specialty Start Date End Date Jamshid Turk MD [address] [place], [place] [address] PCP - General 06/15/10 documented as of this encounter
--- OUTSIDE RECORDS SUMMARY | 2024-08-01 21:59 | XMS_ITS | Encounter Summary ---
Author Organization [facility] [place] [address] Care Team Providers Care Well Service Floorperson Name Role Phone Jamshid Turk MD Primary Care Provider [phone] Encounter Details Date Type Department Care Team (Late st Contact Info) Description 05/16/2023 Telephone [facility] [place] [phone] Mela Roth Social History Tobacco Use Types Packs/Day Years Used Date Smoking Tobacco: Every Day Cigarettes Smokeless Tobacco: Never Sex and Gender Information Value Date Recorded Sex Assigned at Not on file Gender Identity Not on file Sexual Orientation Not on file documented as of this encounter Miscellaneous Notes * Telephone Encounter - Mela Roth - 05/16/2023 10:53 AM EDT LV 05/16/23 in regards to a voice message to schedule a follow up with Hattie Powell. Call [phone].. documented in this encounter Plan of Treatment Not on file documented as of this encounter Visit Diagnoses Not on filedocumented in this encounter Care Teams Well Service Floorperson Relationship Specialty Start Date End Date Jamshid Turk MD [address] [place], [place] [address] PCP - General 06/15/10 documented as of this encounter
--- OUTSIDE RECORDS SUMMARY | 2024-08-01 21:59 | XMS_ITS | Encounter Summary ---
Author Organization [facility] [place] [address] Care Team Providers Care Barrel Planer Name Role Phone Jamshid Turk MD Primary Care Provider [phone] Encounter Details Date Type Department Care Team (Late st Contact Info) Description 07/02/2024 Ancillary Procedure Radiology Library at [facility] [place] [phone] Hattie Powell APRN [facility] [place] [address] Social History Tobacco Use Types Packs/Day Years [...] MR SPINE Routine 07/02/2024 12:00 AM EST documented in this encounter Results * Film Library- Storage Only MR Spine (07/02/2024 12:00 AM EST) Narrative [facility] - 07/10/2024 10:13 AM EST This exam is auto-finalizing. It's purpose is for storage only. Hattie MCKEON FILM LIBRARY OR DERABLES [facility] [place] documented in this encounter Visit Diagnoses Not on filedocumented in this encounter Care Teams Barrel Planer Relationship Specialty Start Date End Date Jamshid Turk MD [address] [place] [address] PCP - General 06/15/10 documented as of this encounter
--- OUTSIDE RECORDS SUMMARY | 2024-08-01 21:59 | XMS_ITS | Encounter Summary ---
Author Organization [facility] [place] [address] Care Team Providers Care Cullet Crusher Name Role Phone Jamshid Turk MD Primary Care Provider [phone] Reason for Referral * Consultation (Routine) - Closed Specialty Diagnoses / Procedures Referred By Contac t Referred To Contact Diagnoses Radiculopathy of cervical region Right cervical radiculopathy Hattie Powell APRN [facility] [place] [address] Pain Clinic, [facility] [address] [place] [address] Referral ID Status Reason Start Date Expiration Date Visits Requested Visits Authorized [id number] Closed Pain Interventional Procedure 09/01/2022 02/28/2023 1 1 Reason for Visit * Reason Comments Neck Pain * Consultation (Routine) - Closed Specialty Diagnoses / Procedures Referred By Contac t Referred To Contact Pain and Spine Center Diagnoses Cervical disc disorder at C5-C6 level with radiculopathy [facility] - Cervical radiculopathy / previous [facility] patient / MRI 05/2022 NEEDS TO BE REQUESTED Rigo Lind MD [address] [place] [address] Hattie Powell APRN [facility] [place] [address] Referral ID Status Reason Start Date Expiration Date V isits Requested Visits Authorized [id number] Closed Consult, Test & Treat PCP Updated and/or Approved 06/15/2022 06/15/2023 6 6 Encounter Details Date Type Department Care Team (Latest Contact Info) Description 09/01/2022 3:15 PM EST Office Visit Pain and Spine Center at [place] [address] Hattie Powell APRN [facility] [place] [address] Radiculopathy of cervical region; Right cervical radiculopathy Social History Tobacco Use Types Packs/Day [...] - Inhaled Oxygen Concentration - - Weight 79.4 kg (175 lb) 09/01/2022 3:24 PM EST Height 170.2 cm (5' 7) 09/01/2022 3:24 PM EST Body Mass Index 27.41 09/01/2022 3:24 PM EST documented in this encounter Progress Notes * Hattie Powell APRN - 09/01/2022 3:15 PM EST [facility] Medical Decision Making: Diogo Barba is a pleasant 51 y.o. male seen today for a chief complaint of neck pain radiating to the bilateral upper extremities on the right greater than the left most likely associated with the disc protrusion at C5-6 and to a lesser extent C6-7. Today, I discussed with the patient that it would not be unreasonable to consider moving forward with a cervical epidural steroid injection to see if this can target his pain. We briefly discussed the role of surgical intervention, the patient is hopeful to avoid surgery if possible. The patient is amenable to this and I will see him back once the injection is completed for further discussion of options. Diagnosis: ICD-10-CM 1. Radiculopathy of cervical region M54.12 Referral to Pain Management 2. Right cervical radiculopathy M54.12 Referral to Pain Management Plan 1. Cervical epidural steroid injection 2. Follow-up with me when the above is completed HPI: Diogo Barba is a 51 y.o. male last seen by me on 02/16/2022 at [facility] and at that time, he was seen for a chief complaint of neck pain radiating to the bilateral shoulders potentially associated with bilateral shoulder pathology versus a cervical radiculopathy at C6 and perhaps even C7. At the time of our last visit, he had completed 8 weeks of physical therapy and while he noted some slight improvement, he plateaued in his improvement and subsequently we discussed moving forward with an MRI for further evaluation of his overall complaints. He was somewhat lost to follow-up with my transition to [facility] and he is returning to me today to discuss the results as well as potential further treatment options. Since my last visit with him, his symptoms have persisted and are more pronounced on the right. ROS A five point review of systems was completed today and, of note, pertinent positive and negatives are indicated in the HPI. reports that he has been smoking cigarettes. He has been smoking an average of 1 pack per day. He has never used smokeless tobacco. Conservative Treatment: Physical Therapy: He completed a full course of physical therapy at [facility] and was discharged to a home exercise program Home Exercise Program: He performs this daily as tolerated Medications: NSAIDS: Meloxicam, Ibuprofen, Celebrex Muscle relaxer: NONE Topicals: NONE Neuroleptics: Gabapentin NONE Other: NONE Tylenol Injections: 1. None for the cervical spine Physical Examination: Wt Readings from Last 1 Encounters: 09/01/22 79.4 kg (175 lb) BMI Readings from Last 1 Encounters: 09/01/22 27.41 kg/m?? Pain: 3 (past 7 days pain lvl at lowest 3, highest 9) General: Pleasant, cooperative, Mood and affect are appropriate Posture: Upright Gait: Nonantalgic Palpation: There are no palpable masses, lesions, or deformities Skin: Intact with no stigmata of underlying disease. ROM: Full with increased discomfort on extension and rotation Sensation: Grossly intact throughout all dermatomes Neuro: Strength: 5/5 throughout all muscle groups Provocative Maneuvers: Spurlings: Mildly positive modified on the right Imaging and Test Review: On the day of this encounter, I independently reviewed an MRI of the cervical spine performed on 03/17/2022 demonstrating right-sided foraminal stenosis at C4- 5, and C5-6. On the left at C5-6, and C6-7. CC: Jamshid Turk MD (Inactive) Referring Provider: Rigo Powell APRN 09/05/2022 [facility] documented in this encounter Plan of Treatment Scheduled Referrals Name Type Priority Associated Diagnoses Orde r Schedule Referral to Pain Management Outpatient Referral Routine Radiculopathy of cervical region Right cervical radiculopathy Ordered: 09/01/2022 documented as of this encounter Visit Diagnoses Diagnosis Radiculopathy of cervical region Brachial neuritis or radiculitis nos Right cervical radiculopathy Brachial neuritis or radiculitis nos documented in this encounter Care Teams Cullet Crusher Relationship Specialty Start Date End Date Jamshid Turk MD [address] [place] [address] PCP - General 06/15/10 documented as of this encounter
--- OUTSIDE RECORDS SUMMARY | 2024-08-01 21:59 | XMS_ITS | Encounter Summary ---
Author Organization [facility] Address [address] [place] [address] Care Team Providers Care Retail Team Leader Name Role Phone Chip Damon MD Primary Care Provider [phone] Encounter Details Date Type Department Care Team (Late st Contact Info) Description 06/02/2021 Results Only [facility] Laboratory Services - [facility] [address] [place] [address] Yesenia Morales, M[address] [place] [address] Social History Tobacco Use Types [...] Date/Time Associated Diagnosis Comments HEMOGLOBIN A1C Routine 12/08/2021 18:20 EDT documented in this encounter Results * (ABNORMAL) HEMOGLOBIN A1C (12/08/2021 18:20 EDT) HgB A1C% 6.9(H) 4.0 - 6.0 % [facility] Average Calculated 150(H) 60 - 115 mg/dL [facility] 12/08/2021 18:2 0 EDT us Yesenia Morales [employer] LIMOUSINE CHEMISTRY & BLOOD GAS ORDERABLES Edited Result - Final Performing Organization Address City/State/[place] Co de Phone Number [facility] [address] [place] [address] documented in this encounter Visit Diagnoses Not on filedocumented in this encounter Care Teams Retail Team Leader Relationship Specialty Start Date End Date Chip Damon MD [address] [place] [address] [address] [place] [address] PCP - General 03/07/12 06/13/21 documented as of this encounter
--- OUTSIDE RECORDS SUMMARY | 2024-08-01 21:59 | XMS_ITS | Encounter Summary ---
Author Organization [facility] Address [address] [place] [address] Care Team Providers Care Manager Of Health Name Role Phone Yeseina Morales NP Primary Care Provider [phone] Reason for Visit * Radiology Services (Routine/Next Available) - Closed Specialty Diagnoses / Procedures Referred By Sajan calix Referred To Contact Radiology Diagnoses Lumbar pain Radicular syndrome of left leg Procedures MR LUMBAR SPINE WO CONTRAST Hattie Powell NP Phone: tel: fax: Referral ID Status Reason Start Date Expiration Date Visits Re quested Visits Authorized [id number] Closed 05/12/2021 1 1 Encounter Details Date Type Department Care Team (Latest Contact Info) Description 06/14/2021 19:49 EST - 06/14/2021 23:59 EST Hospital Encounter [facility] [place] [address] [place] [address] Discharge Disposition: Home or Self Care Social [...] Comments MR LUMBAR SPINE WO CONTRAST Routine 06/14/2021 20:18 EST Lumbar pain Radicular syndrome of left leg documented in this encounter Results * MR LUMBAR SPINE WO CONTRAST (06/14/2021 20:18 EST) Anatomical Region Laterality Modality Spine Magnetic Resonan ce 06/14/2021 20:1 5 EST Impressions 06/14/2021 21:38 EST Spondylitic and discogenic changes as described above. THIS DOCUMENT HAS BEEN ELECTRONICALLY SIGNED BY RIGO MONDRAGON MD FOR ANY QUESTIONS OR CONCERNS REGARDING THIS REPORT PLEASE CALL [facility] AT [phone] Narrative 06/14/2021 21:38 EST PROCEDURE INFORMATION: Exam: [...] CONCERNS REGARDING THIS REPORT PLEASE CALL [facility] [phone] Hattie Powell NP IMG MRI ORDERABLES Final Resu lt documented in this encounter Visit Diagnoses Not on filedocumented in this encounter Care Teams Manager Of Health Relationship Specialty Start Date End Date Kopecky, Yesenia, HOTEL ATTENDANT [address] [place] [address] PCP - General 06/14/21 documented as of this encounter
--- OUTSIDE RECORDS SUMMARY | 2024-08-01 21:59 | XMS_ITS | Encounter Summary ---
Author Organization [facility] Address [address] [place] [address] Care Team Providers Care Machine Package Sealer Name Role Phone Chip Damon MD Primary Care Provider [phone] Encounter Details Date Type Department Care Team (Late st Contact Info) Description 03/06/2012 Results Only [facility] Laboratory Services - [facility] ([facility]) [address] [place], [place] [id number] Gilbert Doss, DO [address] [facility] TY[address] [place], [place] [id number] Social History Tobacco Use Types Packs/Day Years [...] Priority Date/Time Associated Diagnosis Comments SURGICAL PATHOLOGY Routine 03/06/2012 0:00 EDT documented in this encounter Results * SURGICAL PATHOLOGY (03/06/2012 0:00 EDT) Pathology Report: SURGICAL PATHOLOGY REPORT Reports generated via electronic interface contain original data; however they are lacking the format of the original report. Caution should be taken when reading/interpreti ng unformatted reports. Name: ? BINH MARTINEZ ? Accession #: ? [id number] ? : ? 1970 (Age: 41) ??M ? Collect Date: ? 03/06/2012 ? Location: ? [facility] ? Receive Date: ? 03/07/2012 ? Provider: GILBERT DOSS DO Copy to: CHIP DAMON MD ? Final Pathologic Diagnosis: A. ?Terminal ileum, biopsies: 1. ?Small intestinal mucosa with no pathologic features. ?? B. ?Colon, ascending, biopsies: 1. ?Colonic mucosa with no pathologic features. ?? C. ?Colon, transverse, biopsies: 1. ?Colonic mucosa with no pathologic features. D. ?Colon, descending, biopsies: 1. ?Colonic mucosa with no specific pathologic features. ??See comment. E. ?Colon, sigmoid, biopsies: 1. ?Colonic mucosa with no specific pathologic features. ??See comment. F. ?Rectum, biopsies: 1. ?Colorectal mucosa with no pathologic features. Comment: ? Sections of specimens (D) and (E) show rare surface epithelial-associa roma eosinophils, the clinical significance of which is uncertain. ??Adverse drug effect could be a consideration, but the findings are non-specific. ??(Dr. Whitley)/sun Document reviewed and electronically signed by: YOSEF WHITLEY MD Report ??Date: 03/08/2012 14:09 By the signature above, the attending physician certifies that he/she has personally conducted a gross and/or microscopic examination of the described specimens and rendered or confirmed the above diagnosis. Specimen(s) Received: A. ?Terminal ileum bxs B. ? Ascending colon bxs C. ? Transverse colon bxs D. ? Descending colon bxs E. ? Sigmoid colon bxs F. ? Rectal bxs Clinical History: ? Possible diverticulitis Gross Description: ? Received in formalin labelled Freda, Binh and terminal ileum bxs are two morrison-pink, irregular soft tissue fragments measuring 0.3 x 0.3 x 0.2 cm and 0.4 x 0.2 x 0.2 cm. ??The specimen is entirely submitted as (A). Received in formalin labelled Freda, Binh and ascending colon bxs are two morrison-pink, irregular soft tissue fragments measuring 0.4 x 0.3 x 0.3 cm and 0.9 x 0.2 x 0.1 cm, the specimen is entirely submitted as (B). Received in formalin labelled Freda, Binh and transverse colon bxs are two morrison-pink, irregular soft tissue fragments measuring 0.5 x 0.2 x 0.1 cm and 1.2 x 0.2 x 0.1 cm. ??The specimen is entirely submitted as (C). Received in formalin labelled Freda, Binh and descending colon bxs are two morrison-pink, irregular soft tissue fragments measuring 0.2 x 0.2 x 0.1 cm and 0.4 x 0.2 x 0.2 cm. ??The specimen is entirely submitted as (D). Received in formalin labelled Freda, Binh and sigmoid bxs are three morrison-pink, irregular soft tissue fragments ranging from 0.3 x 0.2 x 0.2 cm to 0.4 x 0.3 x 0.2 cm. ??The specimen is entirely submitted as (E). Received in formalin labelled Freda, Binh and rectal bxs are three morrison-pink, irregular soft tissue fragments ranging from 0.2 x 0.1 x 0.1 cm to 0.3 x 0.3 x 0.3 cm. ??The specimen is entirely submitted as (F). (Jasson Young)/[facility] End of Report [facility] 03/06/2012 03/07/2012 9:0 8 EDT us Gilbert Doss DO PATHOLOGY ORDERABLES Fi nal Result [facility] [address] [place] [address] documented in this encounter Visit Diagnoses Not on filedocumented in this encounter Care Teams Machine Package Sealer Relationship Specialty Start Date End Date Chip Damon MD [address] [place] [id number] PCP - General 03/07/12 06/13/21 documented as of this encounter
--- OUTSIDE RECORDS SUMMARY | 2024-08-01 21:59 | XMS_ITS | Encounter Summary ---
Author Organization [facility] Address [address] [place] [address] Care Team Providers Care Wax Pumper Name Role Phone Yesenia Morales NP Primary Care Provider [phone] Reason for Visit * Radiology Services (Routine/Next Available) - Closed Specialty Diagnoses / Procedures Referred By Sajan calix Referred To Contact Diagnoses Left hip pain Procedures FL GUIDED LOCALIZATION, ASPIRATION, INJECTION, BIOPSY Hattie Powell NP Phone: tel: fax: Referral ID Status Reason Start Date Expiration Date Visits Re quested Visits Authorized [id number] Closed 05/12/2021 1 1 Encounter Details Date Type Department Care Team (Latest Contact Info) Description 07/09/2021 13:31 EST - 07/09/2021 23:59 EST Hospital Encounter [facility] - [facility] Xray [address] [place] [address] Discharge Disposition: Home or Self Care Social [...] Routine 07/09/2021 14:35 EST Left hip pain documented in this encounter Visit Diagnoses Not on filedocumented in this encounter Administered Medications Inactive Administered Medications - up to 3 most recent administrations Medication Order MAR Action Action Date Dose Rate Site lidocaine 1 % injection 5 mL 5 mL, intra-articular, Once in imaging, 1 dose, Starting on Mon07/09/21 at 1339, Until Mon07/09/21 at 1435, Routine Given 07/09/2021 14:35 EST 3 mL documented in this encounter Orders Medications Ordered That Ki ht Not Have Been Administered Count Last Ordered Date First Ordered Date iohexoL (OMNIPAQUE 300) injection 10 mL 1 1 09/09/2020 triamcinolone acetonide (SADIE ALOG-40) injection 40 mg 1 07/09/2021 documented in this encounter Care Teams Wax Pumper Relationship Specialty Start Date End Date Yesenia Morales NP [address] [place] [address] PCP - General 06/14/21 documented as of this encounter
--- OUTSIDE RECORDS SUMMARY | 2024-08-01 21:59 | XMS_ITS | Encounter Summary ---
Author Organization [facility] [place] [address] Care Team Providers Care Heavy Duty Truck Mechanic Name Role Phone Jamshid Truk MD Primary Care Provider [phone] Encounter Details Date Type Department Care Team (Late st Contact Info) Description 08/25/2022 Notes Only [facility] [place] [phone] Natalia Ellis Social History Tobacco Use Types Packs/Day Years Used Date Smoking Tobacco: Never Assessed Sex and Gender Information Value Date Recorded Sex Assigned at Not on file Gender Identity Not on file Sexual Orientation Not on file documented as of this encounter Plan of Treatment Not on file documented as of this encounter Visit Diagnoses Not on filedocumented in this encounter Care Teams Heavy Duty Truck Mechanic Relationship Specialty Start Date End Date Jamshid Turk MD [address] [place], [place] [address] PCP - General 06/15/10 documented as of this encounter
--- OUTSIDE RECORDS SUMMARY | 2024-08-01 21:59 | XMS_ITS | Encounter Summary ---
Author Organization [facility] [place] [address] Care Team Providers Care C S S Representative Name Role Phone Jamshid Turk MD Primary Care Provider [phone] Encounter Details Date Type Department Care Team (Late st Contact Info) Description 05/02/2024 Telephone [facility] [place] [address] Zelda South RN Social History Tobacco Use Types Packs/Day Years Used Date Smoking Tobacco: Every Day Cigarettes Smokeless Tobacco: Never Sex and Gender Information Value Date Recorded Sex Assigned at Not on file Gender Identity Not on file Sexual Orientation Not on file documented as of this encounter Miscellaneous Notes * Telephone Encounter - Zelda South RN - 05/02/2024 2:30 PM EDT Copied from CRM #[id number]. Topic: Specialty Dept CRMs - Medication Issues >> May 02, 2024 8:39 AM Ana Ramos wrote: Medication Issues Specialist CP&S Relationship (if other than patient-full name): Justin, Patient's partner Reason for call: Medication Issue (if symptom based used Triage Subtopic) Message/information for the nurse: Patient's partner called to see if they had put the right instructions on this prescription. Please advise. Name of Medication: diclofenac EC (Voltaren) [address] tablet Issue with the medication: Patient is technically receiving less medication than he had been and isstill in a lot of pain. The comparison is 200mg for the old script a day, and 140mg maximum for thenew prescription. documented in this encounter Plan of Treatment Not on file documented as of this encounter Visit Diagnoses Not on filedocumented in this encounter Care Teams C S S Representative Relationship Specialty Start Date End Date Jamshid Turk MD [address] [place] [address] PCP - General 06/15/10 documented as of this encounter
--- OUTSIDE RECORDS SUMMARY | 2024-08-01 21:59 | XMS_ITS | Encounter Summary ---
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 Rigo Lind MD [address] [place] [address] [facility] [place] [address] Referral ID Status Reason Start Date Expiration Date Visits Requested Visits Authorized [id number] Duplicate Referral Consult, Test & Treat PCP Updated and/or Approved 08/15/2022 08/15/2023 12 12 Encounter Details Date Type Department Care Team (Latest Contact Info) Description 08/15/2022 Transcribe Orders eDH Incoming Referrals [phone] Rigo Lind MD [address] [place] [address] Disorder of intervertebral 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 Social History Tobacco Use Types Packs/Day Years Used Date Smoking Tobacco: Never Assessed Sex and Gender Information Value Date Recorded Sex Assigned at Not on file Gender Identity Not on file Sexual Orientation Not on file documented as of this encounter Plan of Treatment Scheduled Referrals Name Type Priority Associated Diagnoses Orde r Schedule Referral to Orthopaedics Outpatient Referral Routine 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
--- OUTSIDE RECORDS SUMMARY | 2024-08-01 21:59 | XMS_ITS | Encounter Summary ---
Author Organization [facility] Address [address] [place] [address] Care Team Providers Care Fruit Harvester Name Role Phone Yesenia Morales NP Primary Care Provider [phone] Encounter Details Date Type Department Care Team (Late st Contact Info) Description 09/01/2021 Results Only [facility] Laboratory Services - [facility] [address] [place] [address] Yesenia Morales NP [address] [place] [address] Social History Tobacco Use Types [...] Name Priority Date/Time Associated Diagnosis Comments POCT URINE DIPSTICK, CLINITEK Routine 09/01/2021 16:48 EST documented in this encounter Results * POCT URINE DIPSTICK, CLINITEK (09/01/2021 16:48 EST) Color (Urine) Yellow YELLOW [facility] Clarify (Urine) Clear CLEAR [facility] Glucose (Urine) Negative NEGATIVE [facility] Bilirubin (Urine) Negative NEGATIVE [facility] Ketones (Urine) Negative NEGATIVE [facility] Specific Hemphill (Urine) 1.025 [facility] Occult Blood (Urine) Negative NEGATIVE [facility] pH (Urine) 6.0 [facility] Protein (Urine) Negative NEGATIVE [facility] Urobilinogen (Urine) 0.2 0.2 - 1.0 EU/dL [facility] Nitrite (Urine) Negative NEGATIVE [facility] Leukocytes (Urine) Negative NEGATIVE [facility] 09/01/2021 16:4 8 EST Yesenia Morales NP POINT OF CARE TEST ORDERABLES Fi nal Result Performing Organization Address City/State/[facility] Co de Phone Number [facility] [address] [place] [address] documented in this encounter Visit Diagnoses Not on filedocumented in this encounter Care Teams Fruit Harvester Relationship Specialty Start Date End Date Yesenia Morales NP [address] [place] [id number] PCP - General 06/14/21 documented as of this encounter
--- OUTSIDE RECORDS SUMMARY | 2024-08-01 21:59 | XMS_ITS | Encounter Summary ---
Author Organization [facility] [place] [address] Care Team Providers Care Critical Care Transport Nurse Name Role Phone Jamshid Turk MD Primary Care Provider [phone] Encounter Details Date Type Department Care Team (Late st Contact Info) Description 12/27/2019 12:10 PM EDT Ancillary Procedure Radiology Library at [facility] [place] [address] Skyler Devine MD [facility] [place] [address] Social History Tobacco Use Types Packs/Day Years [...] Diagnosis Comments FILM LIBRARY STORAGE ONLY DX CHEST Routine 12/27/2019 12:05 PM EDT documented in this encounter Results * Film Library- Storage Only DX Chest (12/27/2019 12:05 PM EDT) Narrative RAD - 12/27/2019 12:05 PM EDT This exam is auto-finalizing. It's purpose is for storage only. Skyler Devine MD IMG FILM LIBRARY ORD ERABLES [place], [place] documented in this encounter Visit Diagnoses Not on filedocumented in this encounter Care Teams Critical Care Transport Nurse Relationship Specialty Start Date End Date Jamshid Turk MD [address] [place] [address] PCP - General 06/15/10 documented as of this encounter
--- OUTSIDE RECORDS SUMMARY | 2024-08-01 21:59 | XMS_ITS | Encounter Summary ---
Author Organization [facility] [place] [address] Care Team Providers Care Security Door Installer Name Role Phone Jamshid Turk MD Primary Care Provider [phone] Encounter Details Date Type Department Care Team (Late st Contact Info) Description 05/25/2023 Ancillary Procedure Radiology Library at [facility] [place] [id number] Hattie Powell APRN [facility] [place] [address] Social History Tobacco Use Types Packs/Day Years [...] FILM LIBRARY STORAGE ONLY DX SPINE Routine 05/25/2023 12:00 AM EDT documented in this encounter Results * Film Library- Storage Only DX Spine (05/25/2023 12:00 AM EDT) Narrative [facility] - 07/10/2024 10:13 AM EST This exam is auto-finalizing. It's purpose is for storage only. Hattie MCKEON FILM LIBRARY OR DERABLES [facility] [place] documented in this encounter Visit Diagnoses Not on filedocumented in this encounter Care Teams Security Door Installer Relationship Specialty Start Date End Date Jamshid Turk MD [address] [place] [address] PCP - General 06/15/10 documented as of this encounter
== END 2024-08-01 23:02 | disposition home or self-care (01) ==
PROVIDERS: Emergency Provider Physician Assistant; PCP Physician Assistant Medical
DX: K08.89 Other specified disorders of teeth and supporting structures (principal); K04.7 Periapical abscess without sinus; E11.9 Type 2 diabetes mellitus without complications; F17.210 Nicotine dependence, cigarettes, uncomplicated; Z79.84 Long term (current) use of oral hypoglycemic drugs; Z79.4 Long term (current) use of insulin
CPT/HCPCS: 99283

== ENCOUNTER 2024-08-07 02:54 | Outpatient (CLI) | payer BC, SELFPAY ==
[2024-08-07 07:54] LABS: COMMENT (LAB VIEW ONLY) 74.53 mg/dL
[2024-08-07 07:57] LABS: ALT 42 U/L (16-63); AST 29 U/L (15-37); Albumin 3.8 g/dL (3.4-5.0); Alkaline Phosphatase 115 U/L (46-116); Anion Gap 9.8 mmol/L (3-11); BUN 29 mg/dL (7-18); CO2 27.2 mmol/L (21.0-32.0); CREATININE 1.3 mg/dL (0.70-1.30); Calcium 9.1 mg/dL (8.5-10.1); Calculated LDL 72 mg/dL (<100); Chloride 102 mmol/L (98-107); Cholesterol 151 mg/dL (<200); Glucose 134 mg/dL (74-106); HDL Cholesterol 44 mg/dL (40-60); Magnesium 1.9 mg/dL (1.8-2.4); Potassium 4.3 mmol/L (3.5-5.1); Sodium 139 mmol/L (136-145); Total Protein 7.4 g/dL (6.4-8.2); Triglyceride 176 mg/dL (<150)
== END 2024-08-07 02:55 | disposition home or self-care (01) ==
LOC: LBO 02:54
PROVIDERS: PCP Physician Assistant Medical; Visit Provider Physician Assistant Medical
DX: E11.65 Type 2 diabetes mellitus with hyperglycemia (principal); E83.42 Hypomagnesemia; R79.89 Other specified abnormal findings of blood chemistry
CPT/HCPCS: 36415; 80053; 80061; 82043; 82570; 83735; 84681

== ENCOUNTER 2024-08-29 06:59 | Emergency (ER) | payer BC, SELFPAY ==
[2024-08-29 07:03] VITALS: BP 123/66; PULSE 85; RESP 18; TEMP 35.7; O2SAT 97
[2024-08-29] MEDS: Ketorolac 15 MG/ML VIAL IM (07:32)
--- NOTE | 2024-08-29 07:35 | ED.GENADUL_ITS ---
Discharge Plan Disposition Patient Disposition: Home Condition: Stable Discharge Details Clinical Impression: Hip pain, left Primary Care Provider: Nisha Cook ED Provider: Andrea Calhoun Home Meds and New Rx's Prescriptions: New cyclobenzaprine 10 mg tablet 10 mg PO TID PRNQty: 20 0RF Continued varenicline tartrate [Chantix] 1 mg tablet 1 mg PO BID (DME) Blood Glucose Test Strip See Rx Instructions .ROUTE .MEDSUPPLY Qty: 200 3RF Rx Instructions: Twice daily (DME) blood-glucose meter [Blood Glucose Monitoring] Kit See Rx Instructions .ROUTE .MEDSUPPLY Qty: 1 0RF Rx Instructions: As directed (DME) lancets 31 gauge misc See Rx Instructions .ROUTE .MEDSUPPLY Qty: 200 0RF Rx Instructions: use bid melatonin 10 mg capsule 20 mg PO HS atorvastatin 40 mg tablet 40 mg PO DAILY cyclobenzaprine 10 mg tablet 20 mg PO HS Jardiance 10 mg tablet 10 mg PO DAILY metformin 500 mg tablet 1,000 mg PO BID aspirin 81 mg tablet,delayed release (DR/EC) 81 mg PO DAILY diclofenac potassium 50 mg tablet 75 mg PO BID insulin glargine [Lantus Solostar U-100 Insulin] 100 unit/mL (3 mL) insulin pen 20 unit subcut QPM chlorhexidine gluconate 0.12 % mouthwash 15 ml mucous membrane BID Qty: 1893 0RF terbinafine HCl 250 mg tablet 250 mg PO DAILY morphine 15 mg tablet extended release 15 mg PO Q12H PRN Patient Comments: TAKE 1 TABLET BY MOUTH EVERY 12 HOURS WHILE AWAKE Rx Instructions: can take two tabs if needed amitriptyline 100 mg tablet 100 mg PO HS Patient Comments: TAKE TWO TABLETS BY MOUTH EVERY EVENING FOR PAIN AND SLEEP Discharge Instructions Additional Instructions: Your x-ray shows you have arthritis. I would recommend following up with your primary care provider. Once your diabetes under control you can follow-up with orthopedics. If you develop new symptoms such as high fevers refill more ill return to the emergency department for reevaluation. HPI General Mode of arrival: ambulatory . Date/Time Provider Initiated Documentation: 08/29/24 07:01 . Limitations to Documentation: no limitations . Information obtained by: patient . History of Present Illness 53 year old M presents to the emergency department with the chief complaint of left hip pain, described as moderate, Quality is described as aching, Patient started experiencing this year(s) (1) and it has been constant. No relieving factors improve symptom(s), No exacerbating factors reported . Patient notes no other symptoms.. Related Data Home Medications ?Medication ?Instructions ?Recorded ?Confirmed Blood Glucose Monitoring #1 ea 01/21/20 08/29/24 (blood-glucose meter) Blood Glucose Test (blood sugar #200 ea 01/21/20 08/29/24 diagnostic) lancets 31 gauge #200 ea 01/21/20 08/29/24 atorvastatin 40 mg tablet 40 mg PO DAILY 02/25/21 08/29/24 melatonin 10 mg capsule 20 mg PO HS 02/25/21 08/29/24 chlorhexidine gluconate 0.12 % 15 ml mucous membrane BID dental 11/08/23 08/29/24 mouthwash infection #1,893 mL cyclobenzaprine 10 mg tablet 20 mg PO HS 02/14/24 08/29/24 empagliflozin 10 mg tablet 10 mg PO DAILY 02/14/24 08/29/24 (Jardiance) metformin 500 mg tablet 1,000 mg PO BID 02/14/24 08/29/24 aspirin 81 mg tablet,delayed 81 mg PO DAILY 03/06/24 08/29/24 release diclofenac potassium 50 mg tablet 75 mg PO BID 05/07/24 08/29/24 insulin glargine 100 unit/mL (3 20 unit subcut QPM 06/18/24 08/29/24 mL) subcutaneous pen (Lantus Solostar U-100 Insulin) varenicline tartrate 1 mg tablet 1 mg PO BID 06/18/24 08/29/24 (Chantix) terbinafine HCl 250 mg tablet 250 mg PO DAILY 06/24/24 08/29/24 amitriptyline 100 mg tablet 100 mg PO HS 08/01/24 08/29/24 cyclobenzaprine 10 mg tablet 10 mg PO TID PRN #20 tabs 08/29/24 morphine 15 mg tablet,extended 15 mg PO Q12H PRN 08/29/24 08/29/24 release Previous Rx's ?Medication ?Instructions ?Recorded Blood Glucose Monitoring #1 ea 01/21/20 (blood-glucose meter) Blood Glucose Test (blood sugar #200 ea 01/21/20 diagnostic) lancets 31 gauge #200 ea 01/21/20 chlorhexidine gluconate 0.12 % 15 ml mucous membrane BID dental 11/08/23 mouthwash infection #1,893 mL cyclobenzaprine 10 mg tablet 10 mg PO TID PRN #20 tabs 08/29/24 Allergies Allergy/AdvReac Type Severity Reaction Status Date / Time erythromycin base AdvReac Severe Severe GI, Verified 08/29/24 07:27 vomiting prednisone AdvReac Intermediate Other (See Verified 08/29/24 07:27 Comment) General Stated Complaint: Orthopedic KATELYNN: 3 Review of Systems All systems reviewed & are unremarkable except as noted in HPI and below Constitutional Constitutional: Denies chills and Denies fever(s) Cardiovascular Cardiovascular: Denies chest pain and Denies dyspnea Respiratory Respiratory: Denies cough and Denies dyspnea Gastrointestinal Gastrointestinal: Denies abdominal pain, Denies nausea and Denies vomiting Musculoskeletal Musculoskeletal: Reports arthralgias and Denies joint swelling Psychiatric Psychiatric: Denies depression Exam Const General: no acute distress Orientation: alert HENPA Head: normal to inspection Ears: external ears normal General nose exam: external nose normal Mouth: moist mucous membranes Eyes General: appearance normal, both eyes and all related structures Neck Neck: normal visual inspection Resp Effort & Inspection: normal respiratory effort and able to speak in complete sentences Cardio Rate: regular rate Skin General skin exam: no rashes or lesions noted Neuro General: patient alert and patient oriented x3 Extrem General: normal to inspection and capillary refill normal Psych Mental Status: mental status grossly normal Course Vital Signs Vital signs: Vital Signs Temperature 35.7 C L 08/29/24 07:03 Pulse 85 08/29/24 07:03 Respiratory Rate 18 08/29/24 07:03 Blood Pressure 123/66 08/29/24 07:03 Pulse Oximetry 97 08/29/24 07:03 Temperature 35.7 C L 08/29/24 07:03 Temperature Source Temporal Artery Scan 08/29/24 07:03 Pulse 85 08/29/24 07:03 Respiratory Rate 18 08/29/24 07:03 Blood Pressure 123/66 08/29/24 07:03 Pulse Oximetry 97 08/29/24 07:03 Medical Decision Making 53-year-old male who states he has arthritis in his hips and is post to get a left hip replacement in the future comes in with continued left hip pain. He denies any trauma, no fevers or systemic symptoms. He has no visible deformity of the hip. He does have limited range of motion due to pain. There is no warmth or rash. He has intact distal sensation and pulses. I suspect his pain is due to degenerative joint disease, will obtain x-rays to exclude pathological fracture. He is no findings on exam or history to suggest septic joint. X-ray shows degenerative changes, patient is stable. He does note that every once in a while feels like his muscles are on his hip feeling for spasming. I advised he follow-up with his PCP as he needs to have his diabetes under control to be a surgical candidate. He will follow-up with his PCP, return precautions given. Differential Diagnosis Differential Diagnosis: Arthritis, bursitis, degenerative joint disease Quality:SDOH Health Related Social Needs: No Data to Display PFSH All Active Problems (Updated 08/29/24 @ 08:48 by Andrea Calhoun MD) Hip pain, left (Acute) Dental infection (Acute) Arthritis of both hips (Acute) Encounter for screening colonoscopy (Acute) Subacromial bursitis of both shoulders (Acute) Tendinopathy of right biceps tendon (Acute) Tendinopathy of left biceps tendon (Acute) Smoker (Acute 01/26/18) Diabetes mellitus type 2 in nonobese (Acute) Tobacco dependence (Acute) Medical History (Updated 08/29/24 @ 08:48 by Andera Calhoun MD) Lipoma removal 03/16/21 Pancreatitis Irritable bowel syndrome Acute necrotizing pancreatitis Pancreatic insufficiency Abscess, dental Sebaceous cyst (09/27/17) Elevated liver function tests (01/26/18) Surgical History (Updated 06/24/24 @ 14:00 by Rupinder Cardona) History of colonoscopy (~06/2024) History of arthroscopy of hip Hx of nasal septoplasty History of surgical removal of skin lesion (~03/16/21) lipoma, back of head Arthroplasty of knee Social History Smoking/Tobacco Use Status: Current every day Tobacco Type: cigarettes Smoking risk assessment performed?: Yes Alcohol Intake: former Drug use: Occasionally Substance use type: marijuana Housing: house Current gender identity: male Do you feel safe at home: Yes Do you feel safe in your relationship?: Yes
--- NOTE | 2024-08-29 07:58 | DI.RAD_ITS ---
Exam(s) XR HIP LT COMPLETE AP PELVIS EXAM: XR HIP LT COMPLETE AP PELVIS CLINICAL HISTORY: left hip pain. TECHNIQUE: 2D digital imaging was performed. Two views. COMPARISON: CR XR HIPS BILATERAL 2 VIEWS OPTIONAL PELVIS from 09/03/2021 MR MR HIP WO CONTRAST LEFT from 12/06/2021 DX XR HIP 1 VIEW WITH ORTHOPELVIS RIGHT from 10/07/2022 XA FL C-ARM BLOCK/INJECTION IN CLINIC from 11/03/2023 FINDINGS: BONES: No acute fracture is present. No bony destructive lesion is seen. JOINTS: No dislocation present. The SI joints and pubic symphysis are intact. There is severe degene rative changes of both hips, with superior joint space narrowing, periarticular spurring and subchond ral cyst formation. Findings are greater on the right. There is some flattening again noted the sup erior right femoral head. SOFT TISSUE: Normal. IMPRESSION: Severe degenerative changes of both hips. No acute abnormality. DATA REPOSITORY: RADIATION DOSE DELIVERED:
[2024-08-29 08:07] VITALS: BP 102/59; RESP 18; O2SAT 98
--- NOTE | 2024-08-29 08:16 | DI.VRAD_ITS ---
PROCEDURE INFORMATION: Exam: XR Left Hip Exam date and time: 08/29/2024 7:48 AM Age: 53 years old Clinical indication: Left hip pain. No trauma TECHNIQUE: Imaging protocol: Radiologic exam of the left hip. Views: 2 or 3 views hip with pelvis when performed. COMPARISON: No relevant prior studies are available for comparison. FINDINGS: Advanced degenerative changes in the hips bilaterally. Mild deformity of the right femoral head. Fluid cysts in femoral heads bilaterally. Correlate clinically for history of avascular necrosis. IMPRESSION: Degenerative changes with additional findings as above. Dictated and Authenticated by: Christina Simpson MD. Orderin Lj Mendez MD
[2024-08-29 09:19] VITALS: BP 107/64; PULSE 85; RESP 18; O2SAT 98
== END 2024-08-29 09:21 | disposition home or self-care (01) ==
PROVIDERS: Emergency Provider Emergency Medicine; PCP Physician Assistant Medical
DX: M25.552 Pain in left hip (principal); E11.9 Type 2 diabetes mellitus without complications; Z79.4 Long term (current) use of insulin; Z79.84 Long term (current) use of oral hypoglycemic drugs; F17.210 Nicotine dependence, cigarettes, uncomplicated
CPT/HCPCS: 99283; 73502; J1885